=== PATIENT | male | born 1945 | race Caucasian/White ===

== ENCOUNTER → 2021-02-25 00:51 | Outpatient (CLI) | payer MEDICARE, SELFPAY ==
[2021-02-25 19:49] LABS: SARS-CoV-2 RNA PCR Negative
== END ==
PROVIDERS: Visit Provider Specialist
DX: Z01.812 Encounter for preprocedural laboratory examination (principal); Z20.822 Contact with and (suspected) exposure to COVID-19
CPT/HCPCS: C9803; U0003; U0005

== ENCOUNTER 2021-02-28 01:24 | Day surgery (SDC) | payer MEDICARE, SELFPAY ==
[2021-02-25 16:44] VITALS: BMI 32.4
[2021-02-28] VITALS (8 sets, daily range): BP systolic 124–148; BP diastolic 67–97; PULSE 57–98; RESP 14–18; TEMP 35.7; O2SAT 97–99; BMI 32.1
--- NOTE | 2021-02-28 08:30 | ECG_ITS ---
Measurements Intervals [place] Rate: 100 P: [place]: 0 QRS: -63 QRSD: 157 T: 25 QT: 392 QTc: 507 Interpretive Statements ATRIAL FIBRILLATION WITH RAPID VENTRICULAR RESPONSE RIGHT BUNDLE BRANCH BLOCK LEFT ANTERIOR FASCICULAR BLOCK BASELINE ARTIFACT- II, III, AVL, AVF ABNORMAL ECG Electronically Signed On 02-28-2021 8:59:02 CDT by Inocencio Concepcion D.O.
[2021-02-28 09:17] LABS: Anion Gap 5 mmol/L (8-16); Blood Urea Nitrogen 23 mg/dL (9-20); Calcium 9.1 mg/dL (8.4-10.2); Carbon Dioxide 29 mmol/L (22-30); Chloride 107 mmol/L (98-107); Estimated CRCL calculation 42 ml/min; Estimated Glomerular Filt Rate 46; Glucose 119 mg/dL (75-110); Magnesium 1.6 mg/dL (1.6-2.3); Potassium 4.4 mmol/L (3.4-5.0); Sodium 141 mmol/L (137-145)
--- NOTE | 2021-02-28 10:21 | P.SEDATION_ITS ---
Moderate Sedation Note-Pt Data Patient Data Diagnosis: Atrial fibrillation with symptomatic recurrence Present Complaint: Generalized fatigue Procedure to be performed/Plan: DC cardioversion Allergies Allergy/AdvReac Type Severity Reaction Status Date / Time amlodipine Allergy Swelling Verified 02/25/21 16:39 Home Medications Medication Instructions Recorded Confirmed Type amiodarone 400 mg PO DAILY 02/25/21 02/25/21 History famotidine 20 mg PO BID 02/25/21 02/25/21 History folic acid 1 mg PO DAILY 02/25/21 02/25/21 History hydrochlorothiazide 12.5 mg PO DAILY 02/25/21 02/25/21 History levothyroxine 50 mcg PO DAILY 02/25/21 02/25/21 History losartan 100 mg PO DAILY 02/25/21 02/25/21 History multivitamin [Multi-Vitamin] 1 tablet PO DAILY 02/25/21 02/25/21 History rivaroxaban [Xarelto] 20 mg PO DAILY 02/25/21 02/25/21 History sildenafil 50 mg PO DAILY PRN 02/25/21 02/25/21 History thiamine HCl (vitamin B1) 100 mg PO DAILY 02/25/21 02/25/21 History Current Medications: Active Medications Sodium Chloride (Normal Saline Iv) 1,000 mls @ 30 mls/hr IV CONT .Q24H PABLO Sedation/Anesthesia: No previous sedation/anesthesia problems (including family history). [facility] Social History Social History Smoking status: Never smoker Substance use: never Substance use type: does not use Living arrangements: alone Additional living arrangements comments: Son and sister both live few blocks away Gender identity (if verbalized by the patient): Male Spiritual care concerns: No Mod Sed Physical Exam Physical Exam Pre Procedural Exam: Normal: Neck, Throat, Airway, Lungs, Heart Size, Neuro Exam and Extremities and Variation: Appearance (Overweight white male in no apparent distress other), Heart Rate and Heart Rhythm (Irregularly irregular) Hours since solid foods: 12 Hours since liquid intake: 12 Internal Medicine - PN: Obj Da Vital Signs Vital Signs: Vital Signs - 24 hr 02/28/21 08:56 Temperature 35.7 C L Pulse Rate 89 Respiratory Rate 18 Blood Pressure 141/70 H Pulse Oximetry 97 Meds/Results Medications: Active Medications Generic Name Dose Route Start Last Admin Trade Name Freq PRN Reason Stop Dose Admin Sodium Chloride 1,000 mls @ 30 mls/hr 02/28/21 08:30 Normal Saline Iv IV CONT .Q24H PABLO Labs CBC & Chem 7: 02/28/21 08:54 Labs: Laboratory Results - last 24 hr 02/28/21 08:54 Sodium 141 Potassium 4.4 Chloride 107 Carbon Dioxide 29 Anion Gap 5 L BUN 23 H Creatinine 1.50 H Estim Creat Clear Calc 42 Estimated GFR 46 L Glucose 119 H Calcium 9.1 Magnesium 1.6 ASA Classification/Sedation ASA Classification/Sedation ASA Class: III Emergent: No Risks: Risks, benefits and alternatives explained and patient/family accepted plan for sedation. Patient re-evaluated immediately prior to sedation.
--- NOTE | 2021-02-28 10:30 | WPDCARDPROC ---
Cardiac Cath Procedure Note Date of procedure:: 02/28/21 Performing physician:: Magnus Delong MD Indication:: Recurrent atrial fibrillation Brief clinical history:: This is a 75-year-old patient with a history of previous atrial fibrillation which occurred in the setting of a pulmonary embolism. In that situation antiarrhythmic therapy was stopped in the past. He was seen in the office recently because of a symptomatic recurrence of the arrhythmia X felt to have occurred within the last 1-2 months. He has been anticoagulated and loaded with amiodarone and is now being admitted as an outpatient for attempt at restoring sinus rhythm electrically. Procedure Procedure performed:: DC cardioversion Sedation/Medication given:: Propofol and aliquots total dosage of 100 mg given Case start time 10:26 a.m. Case end time 10:29 a.m. Sedation provided by Dr. Delong Estimated blood loss:: No blood loss Procedure note:: Patient was placed in the supine position in the cardiac laboratory helper holding area. Defibrillator patches were placed in the AP position for synchronous cardioversion. He then was sedated with propofol. In aliquots a total dosage of 100 mg was given which provided good procedural sedation. He was counter shocked with 200 joules x1 attempt in a synchronized fashion restoring normal sinus rhythm. Findings:: As above Conclusion:: Successful uncomplicated DC cardioversion of atrial fibrillation to sinus rhythm using 200 joules x1 shock Magnus Delong MD [facility]
--- NOTE | 2021-02-28 10:33 | ECG_ITS ---
Measurements Intervals [place] Rate: 58 P: 61 [place]: 230 QRS: -49 QRSD: 166 T: -9 QT: 484 QTc: 476 Interpretive Statements SINUS BRADYCARDIA WITH FIRST DEGREE AV BLOCK ATRIAL PREMATURE COMPLEXES RIGHT BUNDLE BRANCH BLOCK LEFT ANTERIOR FASCICULAR BLOCK ABNORMAL ECG Electronically Signed On 02-28-2021 11:10:22 CDT by Inocencio Concepcion D.O.
== END 2021-02-28 11:40 | disposition home or self-care (01) ==
PROVIDERS: Visit Provider Specialist
PROC: 5A2204Z Restoration of Cardiac Rhythm, Single (ICD-10-PCS; principal; 2021-02-28 10:00)
DX: I48.0 Paroxysmal atrial fibrillation (principal); Z86.711 Personal history of pulmonary embolism; I45.2 Bifascicular block; I44.0 Atrioventricular block, first degree; I49.1 Atrial premature depolarization; E03.9 Hypothyroidism, unspecified; Z79.01 Long term (current) use of anticoagulants; R53.83 Other fatigue; R06.00 Dyspnea, unspecified
CPT/HCPCS: 36415; 80048; 83735; 92960; 93005; J2704; J7030

== ENCOUNTER → 2021-03-22 02:11 | Outpatient (CLI) | payer MEDICARE, SELFPAY ==
[2021-03-22 19:23] LABS: SARS-CoV-2 RNA PCR Negative
== END ==
PROVIDERS: Visit Provider Specialist
DX: Z01.812 Encounter for preprocedural laboratory examination (principal); Z20.822 Contact with and (suspected) exposure to COVID-19
CPT/HCPCS: C9803; U0003; U0005

== ENCOUNTER 2021-03-25 01:40 | Day surgery (SDC) | payer MEDICARE, SELFPAY ==
[2021-03-24 16:19] VITALS: BMI 32.5
[2021-03-25] VITALS (9 sets, daily range): BP systolic 107–152; BP diastolic 64–100; PULSE 57–93; RESP 14–20; O2SAT 94–100
--- NOTE | 2021-03-25 11:30 | ECG_ITS ---
Measurements Intervals [place] Rate: 83 P: [place]: 0 QRS: -58 QRSD: 160 T: 12 QT: 406 QTc: 478 Interpretive Statements ATRIAL FIBRILLATION RIGHT BUNDLE BRANCH BLOCK LEFT ANTERIOR FASCICULAR BLOCK ABNORMAL ECG Electronically Signed On 03-25-2021 11:47:30 CDT by Inocencio Concepcion D.O.
[2021-03-25 11:52] LABS: Hematocrit 37.2 % (42.0-52.0); Hemoglobin 12.3 g/dL (14.0-18.0); Mean Corpuscular HGB Conc 33.1 g/dl (32-36); Mean Corpuscular Volume 108.8 fl (80-100); Mean Platelet Volume 8.5 fl (7.4-10.4); Platelet Count Result 230 k/mm3 (150-375); Red Blood Count 3.42 M/mm3 (4.6-6.20); Red Cell Distribution Width 14.3 % (11.5-14.5); White Blood Count 4.6 K/mm3 (4.5-10.0)
[2021-03-25 12:02] LABS: Anion Gap 4 mmol/L (8-16); Blood Urea Nitrogen 19 mg/dL (9-20); Calcium 9.2 mg/dL (8.4-10.2); Carbon Dioxide 31 mmol/L (22-30); Chloride 105 mmol/L (98-107); Estimated CRCL calculation 45 ml/min; Estimated Glomerular Filt Rate 50; Glucose 96 mg/dL (75-110); INR 3.4; Potassium 4.8 mmol/L (3.4-5.0); Prothrombin Time 34.5 Seconds (11.1-14.7); Sodium 140 mmol/L (137-145)
--- NOTE | 2021-03-25 13:37 | WPDMODSED ---
Moderate Sedation Note-Pt Data Patient Data Diagnosis: Recurrent atrial fibrillation Present Complaint: Palpitations/dyspnea/fatigue Procedure to be performed/Plan: DC cardioversion Allergies Allergy/AdvReac Type Severity Reaction Status Date / Time amlodipine Allergy Swelling Verified 02/25/21 16:39 Home Medications Medication Instructions Recorded Confirmed Type famotidine 20 mg PO BID 02/25/21 02/25/21 History folic acid 1 mg PO DAILY 02/25/21 02/25/21 History hydrochlorothiazide 12.5 mg PO DAILY 02/25/21 02/25/21 History levothyroxine 50 mcg PO DAILY 02/25/21 02/25/21 History losartan 100 mg PO DAILY 02/25/21 02/25/21 History multivitamin [Multi-Vitamin] 1 tablet PO DAILY 02/25/21 02/25/21 History rivaroxaban [Xarelto] 20 mg PO DAILY 02/25/21 02/25/21 History sildenafil 50 mg PO DAILY PRN 02/25/21 02/25/21 History thiamine HCl (vitamin B1) 100 mg PO DAILY 02/25/21 02/25/21 History amiodarone 200 mg PO DAILY 30 Days #30 tablet 02/28/21 Rx Sedation/Anesthesia: No previous sedation/anesthesia problems (including family history). [facility] Social History Social History Smoking status: Never smoker Second hand tobacco smoke exposure: No Alcohol intake: current Alcohol use details: 2 bottles per day Substance use: current Substance use type: marijuana Other substance usage details: on occasion Living arrangements: alone Additional living arrangements comments: Son and sister both live few blocks away Gender identity (if verbalized by the patient): Male Sexual Orientation (if Verbalized by the Patient): Straight or Heterosexual Spiritual care concerns: No Mod Sed Physical Exam Physical Exam Pre Procedural Exam: Normal: Neck, Throat, Airway, Lungs, Heart Size, Neuro Exam and Extremities and Variation: Appearance (Obese white male no distress), Heart Rate and Heart Rhythm (Irregularly irregular) Hours since solid foods: 12 Hours since liquid intake: 12 Internal Medicine - PN: Obj Da Labs CBC & Chem 7: 03/25/21 11:38 03/25/21 11:38 Labs: Laboratory Results - last 24 hr 03/25/21 03/25/21 03/25/21 11:38 11:38 11:38 WBC 4.6 RBC 3.42 L Hgb 12.3 L Hct 37.2 L MCV 108.8 H MCH 36.0 H MCHC 33.1 RDW 14.3 Plt Count 230 MPV 8.5 PT 34.5 H INR 3.4 Sodium 140 Potassium 4.8 Chloride 105 Carbon Dioxide 31 H Anion Gap 4 L BUN 19 Creatinine 1.40 H Estim Creat Clear Calc 45 Estimated GFR 50 L Glucose 96 Calcium 9.2 ASA Classification/Sedation ASA Classification/Sedation ASA Class: II Emergent: No Risks: Risks, benefits and alternatives explained and patient/family accepted plan for sedation. Patient re-evaluated immediately prior to sedation.
--- NOTE | 2021-03-25 13:48 | P.PCNCC_ITS ---
Cardiac Cath Procedure Note Date of procedure:: 03/25/21 Performing physician:: Magnus Delong MD Indication:: Recurrent atrial fibrillation Brief clinical history:: This is a 75-year-old patient with a history of recurrent atrial fibrillation. He underwent a cardioversion last month and has had early recurrence. After being seen in the office I recommended electrophysiology consultation. Per the patient's request we are trying another cardioversion. He is being maintained on amiodarone and is systemically anticoagulated with Xarelto. Procedure Procedure performed:: DC cardioversion Sedation/Medication given:: Propofol total dosage of 100 mg given Case start time 1:46 p.m. Case end time 1:48 p.m. Sedation provided by Dr. Delong Estimated blood loss:: No blood loss Procedure note:: Patient was in the postabsorptive state the defibrillator patches were placed in the AP position. He was sedated with propofol and then counter shocked with 200 joules in a synchronized fashion restoring sinus rhythm. Findings:: As above Conclusion:: Successful uncomplicated DC cardioversion of atrial fibrillation to sinus rhythm using 200 joules x1 shock. Magnus Delong MD [facility]
--- NOTE | 2021-03-25 13:51 | ECG_ITS ---
Measurements Intervals [place] Rate: 57 P: 59 [place]: 218 QRS: -52 QRSD: 162 T: -3 QT: 470 QTc: 458 Interpretive Statements SINUS BRADYCARDIA WITH FIRST DEGREE AV BLOCK RIGHT BUNDLE BRANCH BLOCK LEFT ANTERIOR FASCICULAR BLOCK BASELINE ARTIFACT- AVR, AVL, AVF, V6 ABNORMAL ECG Electronically Signed On 03-25-2021 16:22:25 CDT by Inocencio Concepcion D.O.
== END 2021-03-25 15:27 | disposition home or self-care (01) ==
PROVIDERS: Visit Provider Specialist
PROC: 5A2204Z Restoration of Cardiac Rhythm, Single (ICD-10-PCS; CPT 92960; principal; 2021-03-25 13:00)
DX: I48.0 Paroxysmal atrial fibrillation (principal); G47.33 Obstructive sleep apnea (adult) (pediatric); I35.1 Nonrheumatic aortic (valve) insufficiency; Z79.01 Long term (current) use of anticoagulants; Z86.711 Personal history of pulmonary embolism; F12.90 Cannabis use, unspecified, uncomplicated
CPT/HCPCS: 92960; 36415; 80048; 85027; 85610; 93005; J2704; J7040

== ENCOUNTER 2023-02-11 03:24 | Emergency (ER) | payer MEDICARE, SELFPAY ==
[2023-02-11] VITALS (16 sets, daily range): BP systolic 117–162; BP diastolic 66–84; PULSE 62–73; RESP 13–24; TEMP 36.9; O2SAT 91–100
--- NOTE | ~2023-02-11 | CT_ITS ---
EXAMINATION: CT abdomen pelvis wo con DATE: 02/11/2023 04:01 INDICATION: Left flank pain TECHNIQUE: Computed tomography (CT) of the abdomen and pelvis was performed without intravenous contr ast. The dose-length product (DLP) was 1138.59 mGy-cm. Automated exposure control and iterative recon struction technique were employed. COMPARISON: None FINDINGS: Minimal dependent atelectasis is present in the lung bases. Cardiomegaly is noted. The gall bladder is surgically absent. The liver, spleen, pancreas, and adrenal glands are normal. The kidneys are unremarkable. An IVC filter is noted. No pathologically enlarged abdominal or pelvic lymph nodes are identified. No free intraperitoneal gas or evidence of bowel obstruction. There is moderate lumb ar spondylosis. The appendix is normal. IMPRESSION: 1. No CT correlate for the patient's symptoms. Reviewed, dictated and finalized at location A.
--- NOTE | 2023-02-11 03:30 | ECG_ITS ---
Measurements Intervals [place] Rate: 64 P: -65 [place]: 230 QRS: -65 QRSD: 167 T: 2 QT: 461 QTc: 476 Interpretive Statements SINUS RHYTHM WITH FIRST DEGREE AV BLOCK RIGHT BUNDLE BRANCH BLOCK LEFT ANTERIOR FASCICULAR BLOCK BASELINE ARTIFACT- I, III, AVR, AVL, V1-V2 ABNORMAL ECG COMPARED TO ECG 03/25/2021 13:51:48 SINUS RHYTHM NOW PRESENT Electronically Signed On 02-11-2023 7:46:36 CDT by Inocencio Concepcion D.O.
--- NOTE | 2023-02-11 03:52 | PC.NURSE ---
Patient in CT at this time.
[2023-02-11] MEDS: MORPHINE SULFATE (*CRX) 4 MG/ML INJ IV PUSH (04:01)
[2023-02-11 04:17] LABS: Basophils Percent Auto 0.7 % (0.2-1.2); Hemoglobin 10.4 g/dL (14.0-18.0); Immature Granulocyte Absolute 0.03 K/mm3 (0.00-0.031); Immature Granulocyte Percent A 0.7 % (0-0.5); Lymphocytes Absolute Auto 0.51 K/mm3 (0.9-3.2); Lymphocytes Percent Auto 11.1 % (18.3-44.2); Mean Corpuscular HGB Conc 32.5 g/dl (32-36); Mean Corpuscular Hemoglobin 35.5 pg (26-34); Mean Corpuscular Volume 109.2 fl (80-100); Mean Platelet Volume 8.2 fl (7.4-10.4); Monocytes Absolute Auto 0.6 K/mm3 (0.1-0.6); Monocytes Percent Auto 12.2 % (2.6-8.5); Neutrophils Absolute Auto 3.5 K/mm3 (1.3-6.7); Neutrophils Percent Auto 75.3 % (45.5-73.1); Platelet Count Result 150 k/mm3 (150-375); Red Blood Count 2.93 M/mm3 (4.6-6.20); Red Cell Distribution Width 15.6 % (11.5-14.5); White Blood Count 4.6 K/mm3 (4.5-10.0)
--- NOTE | 2023-02-11 04:24 | ED.GENADULT ---
HPI - General Adult General Chief complaint: Back Pain/Injury Stated complaint: BACK/LEFT FLANK PAIN Time Seen by Provider: 02/11/23 03:31 History of Present Illness HPI narrative: Patient 77-year-old gentleman who presents the emergency department with chief complaint of left flank pain patient reports he did some moving around of stone yesterday and started having some aching in his flank. The patient reports is not improved by anything reports that its actually gotten worse and its worse with movement at this point. Patient denies dysuria denies blood in his urine patient denies vomiting Related Data Home Medications Medication Instructions Recorded Confirmed famotidine 20 mg tablet 20 mg PO BID 02/25/21 02/25/21 folic acid 1 mg PO DAILY 02/25/21 02/25/21 hydrochlorothiazide 25 mg tablet 12.5 mg PO DAILY 02/25/21 02/25/21 levothyroxine 50 mcg capsule 50 mcg PO DAILY 02/25/21 02/25/21 losartan 100 mg tablet 100 mg PO DAILY 02/25/21 02/25/21 multivitamin 1 tablet PO DAILY 02/25/21 02/25/21 rivaroxaban 20 mg tablet (Xarelto) 20 mg PO DAILY 02/25/21 02/25/21 sildenafil 50 mg tablet 50 mg PO DAILY PRN Erectile 02/25/21 02/25/21 Dysfunction thiamine HCl (vitamin B1) 100 mg 100 mg PO DAILY 02/25/21 02/25/21 tablet Allergies Allergy/AdvReac Type Severity Reaction Status Date / Time amlodipine Allergy Swelling Verified 02/11/23 03:33 [facility] Social History Social History Smoking status: Never smoker Second hand tobacco smoke exposure: No Alcohol intake: current Alcohol use details: 2 bottles per day Substance use: current Substance use type: marijuana Other substance usage details: on occasion Living arrangements: alone Additional living arrangements comments: Son and sister both live few blocks away Gender identity (if verbalized by the patient): Male Sexual Orientation (if Verbalized by the Patient): Straight or Heterosexual Spiritual care concerns: No Course Vital Signs Vital signs: Vital Signs Temperature 36.9 C 02/11/23 03:23 Pulse Rate 72 02/11/23 03:23 Respiratory Rate 14 02/11/23 03:23 Blood Pressure 162/72 H 02/11/23 03:23 Pulse Oximetry 99 02/11/23 03:23 Oxygen Delivery Room Air 02/11/23 03:23 Temperature 36.9 C 02/11/23 03:23 Pulse Rate 66 02/11/23 04:45 Respiratory Rate 22 H 02/11/23 04:45 Blood Pressure 162/72 H 02/11/23 03:23 Pulse Oximetry 92 02/11/23 04:45 Oxygen Delivery Room Air 02/11/23 03:23 Medical Decision Making MDM Narrative Medical decision making narrative: Differential diagnosis includes kidney stone, musculoskeletal back pain, intra-abdominal infection, CT scan showed no evidence of acute intra-abdominal pathology noted kidney stone Laboratory studies were obtained which showed a normal urinalysis CBC was normal electrolytes were within normal limits Vital Signs Vital Signs: Vital Signs Temperature 36.9 C 02/11/23 03:23 Pulse Rate 72 02/11/23 03:23 Respiratory Rate 14 02/11/23 03:23 Blood Pressure 162/72 H 02/11/23 03:23 Pulse Oximetry 99 02/11/23 03:23 Oxygen Delivery Room Air 02/11/23 03:23 Temperature 36.9 C 02/11/23 03:23 Pulse Rate 66 02/11/23 04:45 Respiratory Rate 22 H 02/11/23 04:45 Blood Pressure 162/72 H 02/11/23 03:23 Pulse Oximetry 92 02/11/23 04:45 Oxygen Delivery Room Air 02/11/23 03:23 Lab Data 02/11/23 04:09 Labs: Lab Results 02/11/23 02/11/23 02/11/23 Range/Units 04:09 04:09 05:57 WBC 4.6 (4.5-10.0) K/mm3 RBC 2.93 L (4.6-6.20) M/mm3 Hgb 10.4 L (14.0-18.0) g/dL Hct 32.0 L (42.0-52.0) % MCV 109.2 H (80-100) fl MCH 35.5 H (26-34) pg MCHC 32.5 (32-36) g/dl RDW 15.6 H (11.5-14.5) % Plt Count 150 (150-375) k/mm3 MPV 8.2 (7.4-10.4) fl Immature Gran % (Auto) 0.7 H (0-0.5) % Neut % (Auto) 75.3 H (45.5-73.1) % Lymph % (Auto) 11.1 L (18.3-44.2) % [place] % (Auto)
[2023-02-11 04:30] LABS: Alanine Aminotransferase 25 U/L (6-50); Albumin Level 3.8 g/dL (3.5-5.1); Alkaline Phosphatase 93 U/L (38-126); Anion Gap 8 mmol/L (8-16); Aspartate Amino Transferase 47 U/L (17-59); Bilirubin,Total 0.7 mg/dL (0.2-1.3); Blood Urea Nitrogen 16 mg/dL (9-20); Calcium 8.7 mg/dL (8.4-10.2); Carbon Dioxide 23 mmol/L (22-30); Chloride 107 mmol/L (98-107); Estimated Glomerular Filt Rate 59; Glucose 87 mg/dL (65-110); Lipase 64 U/L (23-300); Potassium 4.5 mmol/L (3.4-5.0); Sodium 138 mmol/L (137-145)
[2023-02-11 06:06] LABS: Appearance Urine Clear (Clear); Bacteria Urine None Seen /hpf; Bilirubin Urine Negative (Negative); Blood Urine 1+ (Negative); Color Urine Yellow (Yellow); Glucose Urine UA Negative (Negative); Ketones Urine 1+ mg/dL (Negative); Leukocyte Esterase Ur Negative LEU/UL (Negative); Nitrate Urine Negative (Negative); Non Pathogenic Casts 0-2; Protein Urine Negative (Negative); RBC Urine 0-2 /hpf (0-2); Specific Grav Ur 1.018 (1.001-1.035); Squamous Epithelial Cell Urine None seen /hpf (Few); WBC Urine 0-5 /hpf
[2023-02-11 06:15] LABS: Add Urine Microscopic? YES
== END 2023-02-11 06:51 | disposition home or self-care (01) ==
PROVIDERS: Emergency Provider Emergency Medicine
DX: R10.9 Unspecified abdominal pain (principal); Z79.01 Long term (current) use of anticoagulants; I44.0 Atrioventricular block, first degree; I45.2 Bifascicular block
CPT/HCPCS: 36415; 74176; 80053; 81001; 83690; 85025; 93005; 96374; 99284; J2270

== ENCOUNTER 2023-02-16 11:34 | Emergency (ER) | payer MEDICARE, SELFPAY ==
[2023-02-16] VITALS (19 sets, daily range): BP systolic 142–158; BP diastolic 66–110; PULSE 54–62; RESP 11–24; TEMP 37.1; O2SAT 95–100
--- NOTE | ~2023-02-16 | XR_ITS ---
EXAMINATION: XR lumbar spine 2-3V DATE: 02/16/2023 13:05 INDICATION: Left-sided sciatica. TECHNIQUE: 3 views of lumbar spine were obtained. COMPARISON: CT abdomen and pelvis 02/11/2023 FINDINGS: There is 5 degrees dextrocurvature of lumbar spine. There is 3 mm anterolisthesis of L4 on L5. L5 is a transitional segment. Vertebral body heights are normal. Intervertebral disc heights are normal. There are endplate osteophytes at all levels. There is multilevel facet joint osteoarthritis, severe in lower lumbar spine. The prior CT demonstrates moderate bilateral neural foraminal stenosis at L4-L5. There is a filter in the inferior vena cava. IMPRESSION: 1. Moderate lower lumbar spondylosis. Reviewed, dictated and finalized at location A.
[2023-02-16] MEDS: oxyCODONE/ACETAMINOPHEN (*CRX) 5-325 MG TABLET 1 TABLET PO (12:40)
--- NOTE | 2023-02-16 14:09 | ED.GENADULT ---
HPI - General Adult General Chief complaint: Back Pain/Injury Stated complaint: back pain Time Seen by Provider: 02/16/23 11:42 History of Present Illness HPI narrative: Patient is a 77-year-old male who presents ER with left-sided low back pain and leg pain. Not last 3 days since he ran out of Percocet from his previous visit for the same pain. No numbness or tingling to the part parts. No difficulty with urination or defecation. No numbness in the leg. Has sharp shooting pain that will radiate from the hip down towards his knee. Denies any falls. He has been using a walker at home to get around though he typically does not have to. Related Data Home Medications Medication Instructions Recorded Confirmed famotidine 20 mg tablet 20 mg PO BID 02/25/21 02/25/21 folic acid 1 mg PO DAILY 02/25/21 02/25/21 hydrochlorothiazide 25 mg tablet 12.5 mg PO DAILY 02/25/21 02/25/21 levothyroxine 50 mcg capsule 50 mcg PO DAILY 02/25/21 02/25/21 losartan 100 mg tablet 100 mg PO DAILY 02/25/21 02/25/21 multivitamin 1 tablet PO DAILY 02/25/21 02/25/21 rivaroxaban 20 mg tablet (Xarelto) 20 mg PO DAILY 02/25/21 02/25/21 sildenafil 50 mg tablet 50 mg PO DAILY PRN Erectile 02/25/21 02/25/21 Dysfunction thiamine HCl (vitamin B1) 100 mg 100 mg PO DAILY 02/25/21 02/25/21 tablet Allergies Allergy/AdvReac Type Severity Reaction Status Date / Time amlodipine Allergy Swelling Verified 02/16/23 12:41 Review of Systems Review of Systems: All systems reviewed & are unremarkable except as noted in HPI and below Constitutional: Constitutional: Denies chills and Denies fever(s) Genitourinary: Genitourinary: Denies oliguria, Denies dysuria, Denies urinary frequency and Denies urinary incontinence Musculoskeletal: Musculoskeletal: Reports back pain, Denies arthralgias, Denies joint swelling and Denies muscle cramps Neurologic: Denies focal weakness and Denies numbness [facility] Past Medical History Medical History (Updated 02/16/23 @ 18:03 by Dylon Pinzon MD) Atrial fibrillation Depression Hypertension Pulmonary embolism Surgical History Surgical History (Updated 02/16/23 @ 18:03 by Dylon Pinzon MD) History of cholecystectomy History of total knee arthroplasty Social History Social History Smoking status: Never smoker Second hand tobacco smoke exposure: No Alcohol intake: current Alcohol use details: 2 bottles per day Substance use: current Substance use type: marijuana Other substance usage details: on occasion Living arrangements: alone Additional living arrangements comments: Son and sister both live few blocks away Gender identity (if verbalized by the patient): Male Sexual Orientation (if Verbalized by the Patient): Straight or Heterosexual Spiritual care concerns: No Exam Narrative: GENERAL: Well-appearing, well-nourished, and in no acute distress. HEAD: Normocephalic, atraumatic. CHEST: Clear to auscultation. No respiratory distress. HEART: Regular rate and rhythm. Normal peripheral pulses. ABDOMEN: Soft, nontender, nondistended. Back: No reproducible midline or paraspinal muscular tenderness to the T/L-spine. Very minimal discomfort left lateral buttock near the SI region. EXTREMITIES: Normal range of motion. No edema. Positive straight leg raise left lower extremity. SKIN: Warm, dry, no rash. NEURO: No focal deficits. Alert and oriented x3. PSYCH: Normal mood and affect. Course Course Emergency Course: Imaging today unremarkable. I reviewed previous CT imaging of the abdomen pelvis and back. No fractures. Patient seems to have sciatica is felt to be related to his physical activity at work. Encouraged rest and oral Tylenol. We will add on Flexeril. He has follow-up scheduled with his PCP on 02/21/2023. Patient reports has walker at home that he has been ambulating with that he does not typically have to use. He has been able to get up and ambulate to the bathroom today.
--- NOTE | 2023-02-16 14:50 | PC.NURSE ---
Family verbalized frustration at care for pt after d/c and voice that they thought pt should be admitted because he could not walk. Pt had reported to MD that he was able to walk to bathroom this am [employer]. Pt and family stated that they will not be able take pt home without ambulance. Pt ad family educated on qualifications of need of ambulance transfers and that pt does not qualify if he can sit in a wheelchair and can stand up by self. Pt assisted into wheelchair at this time. Pt was able to bear-weight by self and stand and transfer self to wheelchair by self. Pt was able to maintain balance and assist with dressing self with nurse as stand-by assist. Son verbalize the pt was moving better than [employer] when they called 911. Pt assisted to car after d/c with wheelchair and into vehicle. Son and nurse were stand-by assist into vehicle but pt transferred independently without issues. Family and PT notified of lift-assist services by fire department and ambulance services that can meet pt and family at home with assistance back into home.
== END 2023-02-16 14:57 | disposition home or self-care (01) ==
PROVIDERS: Emergency Provider Emergency Medicine
DX: M54.42 Lumbago with sciatica, left side (principal); I48.91 Unspecified atrial fibrillation; F32.A Depression, unspecified; I10 Essential (primary) hypertension; Z86.711 Personal history of pulmonary embolism
CPT/HCPCS: 72100; 99283; A9270

== ENCOUNTER 2023-02-21 09:03 | Outpatient (CLI) | payer MEDICARE, SELFPAY ==
[2023-02-21 18:56] LABS: Iron 32 ug/dL (49-181)
[2023-02-21 18:58] LABS: Immature Reticulocyte Fraction 23.5 % (3.0-15.9); Reticulocyte Hemoglobin Conten 34.3 pg (28.2-35.7); Reticulocyte Percent 2.26 % (0.7-4.3); Reticulocytes Absolute 0.06 B/L (32.2-175.7)
[2023-02-21 19:07] LABS: Percent Iron Saturation 17 % (20-50)
[2023-02-21 19:57] LABS: Folic Acid > 20.0 ng/mL (2.76->20)
== END 2023-02-21 09:04 | disposition home or self-care (01) ==
LOC: ANHGOSHLAB 09:04
PROVIDERS: Visit Provider Nurse Practitioner
DX: D64.9 Anemia, unspecified (principal)
CPT/HCPCS: 36415; 82607; 82728; 82746; 83540; 83550; 84443; 85046

== ENCOUNTER 2023-06-05 10:08 | Outpatient (CLI) | payer MEDICARE, SELFPAY ==
[2023-06-05 11:08] LABS: Hematocrit 28.8 % (42.0-52.0); Hemoglobin 9.2 g/dL (14.0-18.0); Mean Corpuscular HGB Conc 31.9 g/dl (32-36); Mean Corpuscular Hemoglobin 36.4 pg (26-34); Mean Corpuscular Volume 113.8 fl (80-100); Platelet Count Result 214 k/mm3 (150-375); Red Blood Count 2.53 M/mm3 (4.6-6.20); Red Cell Distribution Width 13.9 % (11.5-14.5); White Blood Count 3.3 K/mm3 (4.5-10.0)
[2023-06-05 13:43] LABS: Folic Acid > 20.0 ng/mL (2.76->20)
[2023-06-05 22:11] LABS: Iron 62 ug/dL (49-181)
[2023-06-05 22:20] LABS: Percent Iron Saturation 22 % (20-50)
== END 2023-06-05 10:09 | disposition home or self-care (01) ==
PROVIDERS: PCP Internal Medicine; Visit Provider Nurse Practitioner
DX: D53.9 Nutritional anemia, unspecified (principal); I48.0 Paroxysmal atrial fibrillation
CPT/HCPCS: 36415; 82607; 82728; 82746; 83540; 83550; 85027

== ENCOUNTER → 2023-06-28 09:35 | Outpatient (CLI) | payer MEDICARE, SELFPAY ==
--- NOTE | ~2023-06-28 | US_ITS ---
EXAMINATION: US soft tissue head and neck DATE: 06/28/2023 09:52 INDICATION: Left scalp lump. TECHNIQUE: Multiple grayscale and Doppler ultrasound images of the head and neck were obtained. COMPARISON: None FINDINGS: There is a 2.1 x 2.2 x 1.1 cm hypoechoic mass with hyperechoic foci in left scalp. No inter nal vascular flow visible on color Doppler. IMPRESSION: 1. 2.2 cm left scalp mass. This finding is most likely a benign mass such as a sebaceous cyst, but ma lignancy is not excluded by imaging. Reviewed, dictated and finalized at location A. IMPRESSION: 1. 2.2 cm left scalp mass. This finding is most likely a benign mass such as a sebaceous cyst, but malignancy is not excluded by imaging.
== END ==
PROVIDERS: PCP Internal Medicine; Visit Provider Nurse Practitioner
DX: R22.0 Localized swelling, mass and lump, head (principal)
CPT/HCPCS: 76536

== ENCOUNTER 2023-07-02 11:00 | Outpatient (CLI) | payer MEDICARE, SELFPAY ==
[2023-07-02 11:33] LABS: Basophils Percent Auto 1.3 % (0.2-1.2); Eosinophils Absolute Auto 0.1 K/mm3 (0-0.3); Hematocrit 35.5 % (42.0-52.0); Hemoglobin 11.8 g/dL (14.0-18.0); Lymphocytes Absolute Auto 0.79 K/mm3 (0.9-3.2); Lymphocytes Percent Auto 26.2 % (18.3-44.2); Mean Corpuscular HGB Conc 33.2 g/dl (32-36); Mean Corpuscular Hemoglobin 35.2 pg (26-34); Mean Platelet Volume 8.4 fl (7.4-10.4); Monocytes Absolute Auto 0.4 K/mm3 (0.1-0.6); Monocytes Percent Auto 11.6 % (2.6-8.5); Neutrophils Absolute Auto 1.8 K/mm3 (1.3-6.7); Neutrophils Percent Auto 57.9 % (45.5-73.1); Platelet Count Result 182 k/mm3 (150-375); Red Blood Count 3.35 M/mm3 (4.6-6.20); Red Cell Distribution Width 12.6 % (11.5-14.5)
[2023-07-02 12:25] LABS: Alanine Aminotransferase 16 U/L (6-50); Albumin Level 3.8 g/dL (3.5-5.1); Alkaline Phosphatase 74 U/L (38-126); Anion Gap 5 mmol/L (8-16); Aspartate Amino Transferase 28 U/L (17-59); Bilirubin,Total 0.3 mg/dL (0.2-1.3); Blood Urea Nitrogen 13 mg/dL (9-20); Calcium 9.1 mg/dL (8.4-10.2); Carbon Dioxide 29 mmol/L (22-30); Chloride 102 mmol/L (98-107); Estimated Glomerular Filt Rate 54; Glucose 100 mg/dL (65-110); Lactate Dehydrogenase 146 U/L (120-246); Potassium 4.1 mmol/L (3.4-5.0); Sodium 136 mmol/L (137-145)
[2023-07-02 12:59] LABS: Iron 35 ug/dL (49-181)
[2023-07-02 13:05] LABS: Percent Iron Saturation 11 % (20-50)
[2023-07-02 13:33] LABS: Folic Acid > 20.0 ng/mL (2.76->20)
[2023-07-05 10:23] LABS: Albumin 3.6 g/dL (3.8-4.8); Alpha 1 Globulin 0.3 g/dL (0.2-0.3); Alpha 2 Globulin 0.7 g/dL (0.5-0.9); Beta 1 Globulin 0.5 g/dL (0.4-0.6); Gamma Globulin 1.2 g/dL (0.8-1.7); Protein, Total 6.8 g/dL (6.1-8.1)
[2023-07-05 23:58] LABS: Methylmalonic Acid 88 nmol/L (87-318)
[2023-07-10 09:21] LABS: Soluble Transferrin Receptor 1.37
== END 2023-07-02 11:01 | disposition home or self-care (01) ==
LOC: ANHLAB 11:04
PROVIDERS: PCP Internal Medicine; Visit Provider Internal Medicine Hematology & Oncology
DX: D64.9 Anemia, unspecified (principal)
CPT/HCPCS: 36415; 80053; 82607; 82728; 82746; 83540; 83550; 83615; 83921; 84155; 84165; 84238; 85025

== ENCOUNTER 2023-07-31 00:41 | Day surgery (SDC) | payer MEDICARE, SELFPAY ==
[2023-07-16 14:01] VITALS: BMI 30.7
--- NOTE | 2023-07-30 09:36 | WPDANESEPPF ---
Anes - Initial Pre Proc Eval Procedure: Operation Date: 07/31/23 10:30 Proposed Procedures p Esophagogastroduodenoscopy & Colonoscopy - Sergio Portillo MD Date/Time: 07/30/23 09:36 Surgeon: Sergio Portillo MD Pre Op Diagnosis: nutritional anemia, family hx colon ca Patient Data Age: 77 Gender: M Height: 1.7 m Weight: 89.1 kg Allergies Allergy/AdvReac Type Severity Reaction Status Date / Time amlodipine Allergy Intermediate Swelling Verified 07/31/23 09:19 Home Medications Medication Instructions Recorded Confirmed Type famotidine 20 mg tablet 20 mg PO BID 02/25/21 07/31/23 History folic acid 1 mg PO DAILY 02/25/21 07/31/23 History losartan 100 mg tablet 100 mg PO DAILY 02/25/21 07/31/23 History multivitamin 1 tablet PO DAILY 02/25/21 07/31/23 History rivaroxaban 20 mg tablet (Xarelto) 20 mg PO DAILY 02/25/21 07/31/23 History sildenafil 50 mg tablet 50 mg PO DAILY PRN Erectile 02/25/21 07/31/23 History Dysfunction thiamine HCl (vitamin B1) 100 mg 100 mg PO DAILY 02/25/21 07/31/23 History tablet amiodarone 200 mg tablet 200 mg PO DAILY 30 days #30 tabs 02/28/21 07/31/23 Rx hydrochlorothiazide 25 mg tablet 12.5 mg PO DAILY 90 days #45 tabs 05/23/23 07/31/23 Rx Patient hx anesthesia problems: none Family hx anesthesia problems: none Results Review: All pre-operative results and documents have been reviewed as part of the pre-operative evaluation. [facility] Past Medical History Medical History (Updated 07/30/23 @ 09:37 by Gigi Youssef DO) Atrial fibrillation Chronic alcohol abuse Depression DVT (deep venous thrombosis) Family hx of colon cancer GERD (gastroesophageal reflux disease) Hypertension Macrocytic anemia CHEO (obstructive sleep apnea) Pulmonary embolism Surgical History Surgical History (System 07/04/23 @ 11:44 by Ana Page) History of cholecystectomy History of total knee arthroplasty Family History Family History Mother Cancer Social History Social History (System 07/04/23 @ 11:44 by Ana Smith Smoking status: Never smoker Second hand tobacco smoke exposure: No Alcohol intake: current Alcohol use details: 2-3 bottles of wine/week Substance use: never Substance use type: does not use Other substance usage details: on occasion Lack of Transportation: No Lack of Food: Never True Current Housing: I Have Housing Concerned About Future Housing: No Difficulty Paying Gas/Electric Bills: No Difficulty Paying for Meds: No Currently Unemployed: No Education: High School Diploma/GED Difficulty w/ Childcare or Family Care: No Living arrangements: alone Additional living arrangements comments: Son and sister both live few blocks away Gender identity (if verbalized by the patient): Male Sexual Orientation (if Verbalized by the Patient): Straight or Heterosexual Spiritual care concerns: No Anes - Eval Final PreProcedure Day of Procedure 07/30/23 09:36 Patient weight: obese Heart: regular rate and rhythm Lungs: clear to auscultation Airway: Mallampati scale class II and special considerations poor dentition Neurological: alert and oriented Last oral intake: >/= 8 hours ASA classification: III Emergent: no Anesthetic plan: proceed Anesthesia type and monitoring: general GIVS and standard monitoring Results Review: All pre-operative results and documents have been reviewed as part of the pre-operative evaluation. Informed Consent: The patient's anesthetic plan and its attendant risks and benefits were discussed with the patient/family/POA. Questions were solicited and answers provided to the satisfaction of the patient/family/POA.
[2023-07-31 09:10] VITALS: BP 150/67; PULSE 60; RESP 18; TEMP 35.9; O2SAT 99; BMI 30.2
[2023-07-31] MEDS: LACTATED RINGERS 1,000 ML 150 ML IV CONT (09:32)
--- NOTE | 2023-07-31 10:07 | PM.HPGS ---
History of Present Illness History of Present Illness Consent: Risks, benefits, and alternatives have been discussed and questions answered. Patient agrees to proceed with procedure. Chief complaint: anemia, family hx colon ca Narrative: Murphy Contreras is a 77 year old male Presents for both colonoscopy and EGD. Patient found to have macrocytic anemia. GI endoscopy to be performed to exclude GI blood loss. Patient denies any obvious blood in his stools. Patient has a history of atrial fibrillation for which she is on Xarelto. He occasionally will get bleeding from gums when he brushes his teeth. Patient also has a family history of colon cancer in his mother. Patient reports that his weight appetite and bowel movements are otherwise normal. He denies abdominal pain. He has no difficulty eating. He denies heartburn. Patient does have significant alcohol intake. 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 Review of Systems Review of Systems: Review of systems noncontributory. [facility] Past Medical History Medical History (Updated 07/30/23 @ 09:37 by Gigi Youssef DO) Atrial fibrillation Chronic alcohol abuse Depression DVT (deep venous thrombosis) Family hx of colon cancer GERD (gastroesophageal reflux disease) Hypertension Macrocytic anemia CHEO (obstructive sleep apnea) Pulmonary embolism Surgical History Surgical History (System 07/04/23 @ 11:44 by Ana Page) History of cholecystectomy History of total knee arthroplasty Family History Family History Mother Cancer Social History Social History (System 07/04/23 @ 11:44 by Ana Page) Smoking status: Never smoker Second hand tobacco smoke exposure: No Alcohol intake: current Alcohol use details: 2-3 bottles of wine/week Substance use: never Substance use type: does not use Other substance usage details: on occasion Lack of Transportation: No Lack of Food: Never True Current Housing: I Have Housing Concerned About Future Housing: No Difficulty Paying Gas/Electric Bills: No Difficulty Paying for Meds: No Currently Unemployed: No Education: High School Diploma/GED Difficulty w/ Childcare or Family Care: No Living arrangements: alone Additional living arrangements comments: Son and sister both live few blocks away Gender identity (if verbalized by the patient): Male Sexual Orientation (if Verbalized by the Patient): Straight or Heterosexual Spiritual care concerns: No Meds Home Medications and Allergies Home Medications Medication Instructions Recorded Confirmed Type famotidine 20 mg tablet 20 mg PO BID 02/25/21 07/31/23 History folic acid 1 mg PO DAILY 02/25/21 07/31/23 History losartan 100 mg tablet 100 mg PO DAILY 02/25/21 07/31/23 History multivitamin 1 tablet PO DAILY 02/25/21 07/31/23 History rivaroxaban 20 mg tablet (Xarelto) 20 mg PO DAILY 02/25/21 07/31/23 History sildenafil 50 mg tablet 50 mg PO DAILY PRN Erectile 02/25/21 07/31/23 History Dysfunction thiamine HCl (vitamin B1) 100 mg 100 mg PO DAILY 02/25/21 07/31/23 History tablet amiodarone 200 mg tablet 200 mg PO DAILY 30 days #30 tabs 02/28/21 07/31/23 Rx hydrochlorothiazide 25 mg tablet 12.5 mg PO DAILY 90 days #45 tabs 05/23/23 07/31/23 Rx Allergies Allergy/AdvReac Type Severity Reaction Status Date / Time amlodipine Allergy Intermediate Swelling Verified 07/31/23 09:19 Vital Signs Vital Signs - 24 hr 07/31/23 09:10 Temperature 96.7 F L Pulse Rate 60 Respiratory Rate 18 Blood Pressure 150/67 H Pulse Oximetry 99 Oxygen Delivery Room Air Exam Narrative: Physical exam reveals patient to be alert. Vital signs stable. HEENT exam is unremarkable. Patient is anicteric. Lungs are clear to auscultation and percussion. Heart is without murmur or extra sounds. Abdomen bowel sounds are present soft nontender with no organomeg
--- NOTE | 2023-07-31 11:28 | SUR.OPER ---
EGD START 1057, END 1112 COLONOSCOPY START 1118, END 1127
[2023-07-31 11:34] VITALS: BP 95/51; PULSE 58; RESP 20; O2SAT 96
[2023-07-31 11:44] VITALS: BP 103/66; PULSE 52; RESP 18; O2SAT 98
[2023-07-31 11:54] VITALS: BP 155/72; PULSE 50; RESP 11; O2SAT 100
== END 2023-07-31 12:03 | disposition home or self-care (01) ==
PROVIDERS: PCP Internal Medicine; Visit Provider Internal Medicine Gastroenterology
PROC: 0DJ08ZZ Inspection of Upper Intestinal Tract, Via Natural or Artificial Opening Endoscopic (ICD-10-PCS; CPT 43235; principal; 2023-07-31 10:30)
DX: C18.7 Malignant neoplasm of sigmoid colon (principal); D12.4 Benign neoplasm of descending colon; K64.8 Other hemorrhoids; K31.7 Polyp of stomach and duodenum; D53.9 Nutritional anemia, unspecified; Z80.0 Family history of malignant neoplasm of digestive organs; I48.0 Paroxysmal atrial fibrillation; K21.9 Gastro-esophageal reflux disease without esophagitis; I10 Essential (primary) hypertension; G47.33 Obstructive sleep apnea (adult) (pediatric); F32.A Depression, unspecified; F10.10 Alcohol abuse, uncomplicated; Z86.718 Personal history of other venous thrombosis and embolism; Z86.711 Personal history of pulmonary embolism; Z79.01 Long term (current) use of anticoagulants; E66.9 Obesity, unspecified; Z68.30 Body mass index [BMI] 30.0-30.9, adult
CPT/HCPCS: 43251; 45385; 88305; J2704; J7120

== ENCOUNTER → 2023-08-15 10:44 | Outpatient (REF) | payer MEDICARE, SELFPAY | LOC: ANHLAB 10:44 | PROVIDERS: PCP Internal Medicine; Visit Provider Plastic Surgery | DX: L72.11 Pilar cyst (principal) | CPT/HCPCS: 88305 ==

== ENCOUNTER 2023-09-21 01:02 | Day surgery (SDC) | payer MEDICARE, SELFPAY ==
--- NOTE | 2023-09-17 13:22 | PC.NURSE ---
pt has colonoscopy scheduled for 2022. attempts made to call pt to go over instructions and stopping blood thinner. messages left x3, pt has not called back. called pts contact listed, son awilda, he states he knows father is aware of date and time, he is going to drive his father. he will text pt and ask him to call office. also states he will make his dad aware to stop his blood thinner after 09/18/23.
[2023-09-17 13:33] VITALS: BMI 30.4
--- NOTE | 2023-09-20 13:52 | WPDANESEPPF ---
Anes - Initial Pre Proc Eval Procedure: Operation Date: 09/21/23 11:00 Proposed Procedures p Esophagogastroduodenoscopy & Colonoscopy - Sergio Portillo MD Date/Time: 09/20/23 13:52 Surgeon: Sergio Portillo MD Pre Op Diagnosis: polyp of stomach and duodenum, Patient Data Age: 77 Gender: M Height: 1.7 m Weight: 88.18 kg Allergies Allergy/AdvReac Type Severity Reaction Status Date / Time amlodipine Allergy Intermediate Swelling Verified 09/21/23 10:00 Home Medications Medication Instructions Recorded Confirmed Type famotidine 20 mg tablet 20 mg PO BID 02/25/21 09/17/23 History folic acid 1 mg PO DAILY 02/25/21 09/17/23 History losartan 100 mg tablet 100 mg PO DAILY 02/25/21 09/21/23 History multivitamin 1 tablet PO DAILY 02/25/21 09/17/23 History rivaroxaban 20 mg tablet (Xarelto) 20 mg PO DAILY 02/25/21 09/17/23 History sildenafil 50 mg tablet 50 mg PO DAILY PRN Erectile 02/25/21 09/17/23 History Dysfunction thiamine HCl (vitamin B1) 100 mg 100 mg PO DAILY 02/25/21 09/17/23 History tablet amiodarone 200 mg tablet 200 mg PO DAILY 30 days #30 tabs 02/28/21 09/21/23 Rx hydrochlorothiazide 25 mg tablet 12.5 mg PO DAILY 90 days #45 tabs 05/23/23 09/21/23 Rx levothyroxine 50 mcg tablet 50 mcg PO DAILY #90 tabs 08/23/23 09/21/23 Rx Patient hx anesthesia problems: none Family hx anesthesia problems: none Results Review: All pre-operative results and documents have been reviewed as part of the pre-operative evaluation. [facility] Past Medical History Medical History (Updated 08/01/23 @ 12:34 by Sergio Portillo MD) Atrial fibrillation Chronic alcohol abuse Depression DVT (deep venous thrombosis) Family hx of colon cancer GERD (gastroesophageal reflux disease) Hypertension Macrocytic anemia CHEO (obstructive sleep apnea) Pulmonary embolism Surgical History Surgical History History of cholecystectomy History of total knee arthroplasty Family History Family History Mother Cancer Social History Social History (Updated 09/03/23 @ 09:07 by Usha Bajwa MA) Smoking status: Never smoker Second hand tobacco smoke exposure: No Alcohol intake: current Alcohol use details: daily, wine Substance use: never Substance use type: does not use Other substance usage details: on occasion Lack of Transportation: No Lack of Food: Never True Current Housing: I Have Housing Concerned About Future Housing: No Difficulty Paying Gas/Electric Bills: No Difficulty Paying for Meds: No Currently Unemployed: No Education: High School Diploma/GED Difficulty w/ Childcare or Family Care: No Living arrangements: alone Additional living arrangements comments: Son and sister both live few blocks away Gender identity (if verbalized by the patient): Male Sexual Orientation (if Verbalized by the Patient): Straight or Heterosexual Spiritual care concerns: No Anes - Eval Final PreProcedure Day of Procedure 09/20/23 13:52 Patient weight: obese Heart: regular rate and rhythm Lungs: clear to auscultation Airway: Mallampati scale class II Neurological: alert and oriented Last oral intake: >/= 8 hours ASA classification: III Emergent: no Anesthetic plan: proceed Anesthesia type and monitoring: general GIVS and standard monitoring Results Review: All pre-operative results and documents have been reviewed as part of the pre-operative evaluation. Informed Consent: The patient's anesthetic plan and its attendant risks and benefits were discussed with the patient/family/POA. Questions were solicited and answers provided to the satisfaction of the patient/family/POA.
[2023-09-21 10:02] VITALS: BP 145/78; PULSE 66; RESP 20; TEMP 36.2; O2SAT 100
[2023-09-21] MEDS: LACTATED RINGERS 1,000 ML 150 ML IV CONT (10:19)
--- NOTE | 2023-09-21 10:36 | PM.HPGS ---
History of Present Illness History of Present Illness Consent: Risks, benefits, and alternatives have been discussed and questions answered. Patient agrees to proceed with procedure. Chief complaint: polyp of stomach and duodenum, Narrative: Murphy Contreras is a 77 year old male Presents for follow-up colonoscopy an EGD. Recent colonoscopy and EGD were performed 6 weeks ago. Patient had a rather large polyp in the stomach. Patient denies abdominal pain but presents for follow-up EGD to document healing of this large area. Also to ensure complete resection of this polyp. Patient had multiple large polyps in the colon. 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 Patient returns today for follow-up to ensure complete resection of this lesion. Patient reports his current weight appetite bowel movements are normal. Review of Systems Review of Systems: Review of systems noncontributory. [facility] Past Medical History Medical History (Updated 08/01/23 @ 12:34 by Sergio Portillo MD) Atrial fibrillation Chronic alcohol abuse Depression DVT (deep venous thrombosis) Family hx of colon cancer GERD (gastroesophageal reflux disease) Hypertension Macrocytic anemia CHEO (obstructive sleep apnea) Pulmonary embolism Surgical History Surgical History History of cholecystectomy History of total knee arthroplasty Family History Family History Mother Cancer Social History Social History (Updated 09/03/23 @ 09:07 by Usha Bajwa MA) Smoking status: Never smoker Second hand tobacco smoke exposure: No Alcohol intake: current Alcohol use details: daily, wine Substance use: never Substance use type: does not use Other substance usage details: on occasion Lack of Transportation: No Lack of Food: Never True Current Housing: I Have Housing Concerned About Future Housing: No Difficulty Paying Gas/Electric Bills: No Difficulty Paying for Meds: No Currently Unemployed: No Education: High School Diploma/GED Difficulty w/ Childcare or Family Care: No Living arrangements: alone Additional living arrangements comments: Son and sister both live few blocks away Gender identity (if verbalized by the patient): Male Sexual Orientation (if Verbalized by the Patient): Straight or Heterosexual Spiritual care concerns: No Meds Home Medications and Allergies Home Medications Medication Instructions Recorded Confirmed Type famotidine 20 mg tablet 20 mg PO BID 02/25/21 09/17/23 History folic acid 1 mg PO DAILY 02/25/21 09/17/23 History losartan 100 mg tablet 100 mg PO DAILY 02/25/21 09/21/23 History multivitamin 1 tablet PO DAILY 02/25/21 09/17/23 History rivaroxaban 20 mg tablet (Xarelto) 20 mg PO DAILY 02/25/21 09/17/23 History sildenafil 50 mg tablet 50 mg PO DAILY PRN Erectile 02/25/21 09/17/23 History Dysfunction thiamine HCl (vitamin B1) 100 mg 100 mg PO DAILY 02/25/21 09/17/23 History tablet amiodarone 200 mg tablet 200 mg PO DAILY 30 days #30 tabs 02/28/21 09/21/23 Rx hydrochlorothiazide 25 mg tablet 12.5 mg PO DAILY 90 days #45 tabs 05/23/23 09/21/23 Rx levothyroxine 50 mcg tablet 50 mcg PO DAILY #90 tabs 08/23/23 09/21/23 Rx Allergies Allergy/AdvReac Type Severity Reaction Status Date / Time amlodipine Allergy Intermediate Swelling Verified 09/21/23 10:00 Vital Signs Vital Signs - 24 hr 09/21/23 10:02 Temperature 97.2 F L Pulse Rate 66 Respiratory Rate 20 Blood Pressure 145/78 H Pulse Oximetry 100 Oxygen Delivery Room Air Exam Narrative: Physical exam reveals patient to be alert. Vital signs stable. HEENT exam is unremarkable. Patient is anicteric. Lungs are clear to auscultation and percussion. Heart is without murmur or extra sounds. Abdomen bowel sounds present soft nontender with no organomegaly. Digital ex
--- NOTE | 2023-09-21 11:33 | SUR.OPER ---
EGD began at 1123 and ended at 1128. Colonoscopy began at 1134.
[2023-09-21 11:57] VITALS: BP 111/58; PULSE 47; RESP 22; O2SAT 100
[2023-09-21 12:07] VITALS: BP 112/65; PULSE 51; RESP 18; O2SAT 100
[2023-09-21 12:17] VITALS: BP 106/62; PULSE 51; RESP 19; O2SAT 100
[2023-09-21] MEDS: PROPARACAINE HCL 0.5% 15 ML OPHTH SOLN 1 DROP EACH EYE (12:42)
[2023-09-21] MEDS: ARTIFICIAL TEARS OPHTH SOLN 15 ML BOTTLE 1 DROP EACH EYE (12:48)
--- NOTE | 2023-09-21 12:50 | SUR.PHASEII ---
Patient complaining of blurry vision and eye irritation to left side. Dr Youssef at bedside. Eye drops provided. Patient states it feels better and will continue his home eye drops. Instructed to see an eye doctor if symptoms persist.
== END 2023-09-21 12:51 | disposition home or self-care (01) ==
PROVIDERS: PCP Internal Medicine; Visit Provider Internal Medicine Gastroenterology
PROC: 0DJ08ZZ Inspection of Upper Intestinal Tract, Via Natural or Artificial Opening Endoscopic (ICD-10-PCS; CPT 43235; principal; 2023-09-21 11:00)
DX: C18.9 Malignant neoplasm of colon, unspecified (principal); D12.4 Benign neoplasm of descending colon; D12.5 Benign neoplasm of sigmoid colon; K63.5 Polyp of colon; D53.9 Nutritional anemia, unspecified; I48.91 Unspecified atrial fibrillation; K21.9 Gastro-esophageal reflux disease without esophagitis; I10 Essential (primary) hypertension; G47.33 Obstructive sleep apnea (adult) (pediatric); F32.A Depression, unspecified; Z86.711 Personal history of pulmonary embolism; Z79.01 Long term (current) use of anticoagulants; E66.9 Obesity, unspecified; Z68.30 Body mass index [BMI] 30.0-30.9, adult
CPT/HCPCS: 45385; 43251; 88305; A9270; J2704; J7120

== ENCOUNTER 2023-10-15 13:24 | Outpatient (CLI) | payer MEDICARE, SELFPAY ==
[2023-10-15 13:44] LABS: Basophils Absolute Auto 0.1 K/mm3 (0.0-0.1); Basophils Percent Auto 1.1 % (0.2-1.2); Eosinophils Absolute Auto 0.1 K/mm3 (0-0.3); Eosinophils Percent Auto 2.1 % (0-4.4); Hematocrit 34.4 % (42.0-52.0); Hemoglobin 11.7 g/dL (14.0-18.0); Immature Granulocyte Absolute 0.01 K/mm3 (0.00-0.031); Immature Granulocyte Percent A 0.2 % (0-0.5); Lymphocytes Absolute Auto 1.33 K/mm3 (0.9-3.2); Lymphocytes Percent Auto 28.5 % (18.3-44.2); Mean Corpuscular Hemoglobin 36.7 pg (26-34); Mean Corpuscular Volume 107.8 fl (80-100); Mean Platelet Volume 8.5 fl (7.4-10.4); Monocytes Absolute Auto 0.5 K/mm3 (0.1-0.6); Monocytes Percent Auto 9.9 % (2.6-8.5); Neutrophils Absolute Auto 2.7 K/mm3 (1.3-6.7); Neutrophils Percent Auto 58.2 % (45.5-73.1); Platelet Count Result 187 k/mm3 (150-375); Red Blood Count 3.19 M/mm3 (4.6-6.20); Red Cell Distribution Width 13.9 % (11.5-14.5); White Blood Count 4.7 K/mm3 (4.5-10.0)
[2023-10-15 18:23] LABS: Iron 146 ug/dL (49-181); Percent Iron Saturation 74 % (20-50)
[2023-10-15 18:32] LABS: Alanine Aminotransferase 12 U/L (6-50); Albumin Level 4.1 g/dL (3.5-5.1); Alkaline Phosphatase 69 U/L (38-126); Anion Gap 8 mmol/L (8-16); Aspartate Amino Transferase 32 U/L (17-59); Bilirubin,Total 0.7 mg/dL (0.2-1.3); Blood Urea Nitrogen 17 mg/dL (9-20); Calcium 9.3 mg/dL (8.4-10.2); Carbon Dioxide 29 mmol/L (22-30); Chloride 103 mmol/L (98-107); Estimated Glomerular Filt Rate > 60; Glucose 108 mg/dL (65-110); Potassium 4.7 mmol/L (3.4-5.0); Sodium 140 mmol/L (137-145)
[2023-10-15 19:40] LABS: Folic Acid > 20.0 ng/mL (2.76->20)
== END 2023-10-15 13:25 | disposition home or self-care (01) ==
LOC: ANHLAB 13:27
PROVIDERS: PCP Internal Medicine; Visit Provider Internal Medicine Hematology & Oncology
DX: D64.9 Anemia, unspecified (principal)
CPT/HCPCS: 36415; 80053; 82607; 82728; 82746; 83540; 83550; 85025

== ENCOUNTER 2024-02-11 13:32 | Outpatient (CLI) | payer MEDICARE, SELFPAY ==
[2024-02-11 13:47] LABS: Basophils Absolute Auto 0.1 K/mm3 (0.0-0.1); Basophils Percent Auto 1.4 % (0.2-1.2); Eosinophils Absolute Auto 0.1 K/mm3 (0-0.3); Eosinophils Percent Auto 1.4 % (0-4.4); Hemoglobin 11.7 g/dL (14.0-18.0); Immature Granulocyte Absolute 0.01 K/mm3 (0.00-0.031); Immature Granulocyte Percent A 0.2 % (0-0.5); Lymphocytes Absolute Auto 1.48 K/mm3 (0.9-3.2); Lymphocytes Percent Auto 29.4 % (18.3-44.2); Mean Corpuscular HGB Conc 34.4 g/dl (32-36); Mean Corpuscular Hemoglobin 37.4 pg (26-34); Mean Corpuscular Volume 108.6 fl (80-100); Mean Platelet Volume 8.1 fl (7.4-10.4); Monocytes Absolute Auto 0.6 K/mm3 (0.1-0.6); Monocytes Percent Auto 11.1 % (2.6-8.5); Neutrophils Absolute Auto 2.8 K/mm3 (1.3-6.7); Neutrophils Percent Auto 56.5 % (45.5-73.1); Platelet Count Result 177 k/mm3 (150-375); Red Blood Count 3.13 M/mm3 (4.6-6.20); Red Cell Distribution Width 12.8 % (11.5-14.5)
[2024-02-11 19:25] LABS: Iron 132 ug/dL (49-181)
[2024-02-11 19:46] LABS: Percent Iron Saturation 74 % (20-50)
[2024-02-11 20:28] LABS: Alanine Aminotransferase 31 U/L (6-50); Albumin Level 3.9 g/dL (3.5-5.1); Alkaline Phosphatase 84 U/L (38-126); Anion Gap 4 mmol/L (8-16); Aspartate Amino Transferase 59 U/L (17-59); Bilirubin,Total 0.7 mg/dL (0.2-1.3); Blood Urea Nitrogen 20 mg/dL (9-20); Calcium 9.3 mg/dL (8.4-10.2); Carbon Dioxide 27 mmol/L (22-30); Chloride 101 mmol/L (98-107); Estimated Glomerular Filt Rate 54; Glucose 91 mg/dL (65-110); Potassium 4.6 mmol/L (3.4-5.0); Sodium 132 mmol/L (137-145)
[2024-02-11 21:40] LABS: Folic Acid > 20.0 ng/mL (2.76->20); Vitamin B12 > 1000.0 pg/mL (239-931)
== END 2024-02-11 13:33 | disposition home or self-care (01) ==
LOC: ANHLAB 13:34
PROVIDERS: PCP Internal Medicine; Visit Provider Internal Medicine Hematology & Oncology
DX: D64.9 Anemia, unspecified (principal)
CPT/HCPCS: 36415; 80053; 82607; 82728; 82746; 83540; 83550; 85025

== ENCOUNTER 2024-04-02 11:15 | Outpatient (CLI) | payer MEDICARE, SELFPAY ==
[2024-04-02 11:42] LABS: Hematocrit 33.3 % (42.0-52.0); Hemoglobin 11.2 g/dL (14.0-18.0); Mean Corpuscular HGB Conc 33.6 g/dl (32-36); Mean Corpuscular Volume 109.9 fl (80-100); Mean Platelet Volume 8.7 fl (7.4-10.4); Platelet Count Result 175 k/mm3 (150-375); Red Blood Count 3.03 M/mm3 (4.6-6.20); Red Cell Distribution Width 13.2 % (11.5-14.5)
[2024-04-02 18:19] LABS: Iron 162 ug/dL (49-181)
[2024-04-02 18:29] LABS: Percent Iron Saturation 101 % (20-50)
[2024-04-02 18:35] LABS: Cholesterol 205 mg/dL (0-200); HDL Direct 103 mg/dL; Triglycerides 77 mg/dL (<150)
[2024-04-02 18:46] LABS: LDL Cholesterol Direct 90 mg/dL
== END 2024-04-02 11:16 | disposition home or self-care (01) ==
LOC: ANHLAB 11:19
PROVIDERS: Nurse Practitioner; PCP Internal Medicine; Visit Provider Internal Medicine Hematology & Oncology
DX: E03.9 Hypothyroidism, unspecified (principal); E78.5 Hyperlipidemia, unspecified; D64.9 Anemia, unspecified
CPT/HCPCS: 36415; 80061; 82607; 82728; 83540; 83550; 84443; 85027

== ENCOUNTER 2024-05-02 01:18 | Inpatient (IN) | payer MEDICARE, SELFPAY ==
[2024-05-02] VITALS (21 sets, daily range): BP systolic 80–137; BP diastolic 62–82; PULSE 70–94; RESP 15–22; TEMP 36.4–36.9; O2SAT 97–100; BMI 30.4; BMI 30.6
--- NOTE | 2024-05-02 | ECHO_ITS ---
Patient Info Name: Murphy Contreras Age: 78 years : 1945 Gender: Male Ht: 67 in Wt: 195 lbs BSA: 2.07 m2 HR: 80 bpm BP: 137 / 82 mmHg Heart Rhythm: Atrial Fibrillation Technical Quality: Fair Exam Date: 05/02/2024 8:27 AM Exam Location: Echo Lab Patient Status: Inpatient Admit Date: 05/02/2024 Staff Ordering Physician: Hans Ortiz MD [employer] Specialist: Taylor Leon RDCS Attending Provider: Hans Ortiz MD Referring Physician: Angel SEYMOUR; Exam Type: CA echo dop color flow w con Study Info Indications - sob Complete two-dimensional, color flow and Doppler transthoracic echocardiogram is performed with contrast to opacify the left ventricle and to improve the deliniation of the left ventricle endocardial borders. Contrast/Agitated Saline Contrast/Ag. Saline: Definity Amount: 2.00 ml Administered By: Taylor Leon RDCS Existing IV Access: Yes IV Access Condition: patent with no signs of infiltration Summary 1. Definity contrast utilized to improve visualization. 2. Left ventricular hypertrophy with vigorous systolic contractility. 3. Trivial aortic regurgitation. 4. Moderate biatrial dilation. 5. Atrial fibrillation. Left Ventricle Left ventricular chamber dimension is normal. Left ventricular systolic function is normal, estimated at 65-70%. There is mild concentric increased left ventricular wall thickness. Right Ventricle Right ventricular chamber dimension is normal. Left Atria Left atrial chamber dimension is moderately enlarged. Right Atria Right atrial chamber dimension is moderately enlarged. Aortic Valve The aortic valve is trileaflet. There is mild aortic valve sclerosis. There is trace aortic valve regurgitation. Pulmonic Valve The pulmonic valve is not well visualized. Mitral Valve The mitral valve has normal leaflets. Tricuspid Valve The tricuspid valve leaflets are normal. Pericardium/Pleural The pericardium appears normal. Aorta The aortic root size at the sinus of Valsalva is normal. Left Ventricular Outflow Tract Name Value Normal LVOT 2D LVOT Diameter 2.37 cm LVOT Doppler LVOT Peak Gradient 2 mmHg LVOT Mean Gradient 1 mmHg LVOT VTI 14.78 cm LVOT VTI/AV VTI Ratio 0.70 LVOT Stroke Volume 64.90 ml LVOT CO 4.32 l/min LVOT CI 2.09 L/min/m2 Pulmonic Valve Name Value Normal RVOT Doppler RVOT Peak Gradient 1 mmHg PV Doppler PV Peak Gradient 2 mmHg Mitral Valve Name Value Normal
--- NOTE | ~2024-05-02 | XR_ITS ---
Portable chest x-ray Comparison: 09/16/2018 Clinical History: Chest pain Findings: Lungs are clear, without focal consolidation or pleural effusion. Cardiomediastinal silho uette is stable. Bones and soft tissues are unremarkable. Impression: Clear lungs. Reviewed, dictated and finalized at location . Impression: Clear lungs.
--- NOTE | ~2024-05-02 | US_ITS ---
EXAMINATION: US arterial ankle brachial ind DATE: 05/02/2024 11:14 INDICATION: Claudication TECHNIQUE: Segmental pressures and plethysmographic and Doppler waveforms of the brachial and lower e xtremity arteries were obtained. COMPARISON: None. FINDINGS: Right and left brachial artery pressures of 112 mm Hg and 112 mm Hg, respectively, are concordant (no rmal difference <= 30 mmHg). The right ankle-brachial index (VERONA) is 2.13 (normal >= 0.9-1.0). The right great toe-brachial index (TBI) is 0.77 (normal >= 0.65). Arterial Doppler waveforms are triphasic at the right posterior tibia l and biphasic at the right dorsalis pedis artery, both with brisk systolic upstrokes. The left VERONA is 2.26. The left TBI is 0.85. Arterial Doppler waveforms are triphasic at the left post erior tibial and biphasic at the left dorsalis pedis artery, both with brisk systolic upstrokes. IMPRESSION: 1. No significant arterial occlusive disease to either lower limb with normal bilateral ABIs and TBIs Reviewed, dictated and finalized at location A. IMPRESSION: 1. No significant arterial occlusive disease to either lower limb with normal b ilateral ABIs and TBIs
--- NOTE | 2024-05-02 01:21 | ECG_ITS ---
Test Date: 2024-05-02 01:21:17 Measurements Intervals [place] Rate: 83 P: 0 [place]: 0 QRS: -74 QRSD: 176 T: 9 QT: 435 QTc: 513 Interpretive Statements ATRIAL FIBRILLATION RIGHT BUNDLE BRANCH BLOCK [120+ ms QRS DURATION, UPRIGHT V1, 40+ ms S IN I/aVL/V4/V5/V6] LEFT ANTERIOR FASCICULAR BLOCK [QRS AXIS <= -45, QR IN I, RS IN II] ABNORMAL ECG No previous ECG available for comparison Electronically Signed On 05-02-2024 07:15:56 CDT by Magnus Delong M.D.
[2024-05-02 01:57] LABS: Basophils Absolute Auto 0.1 K/mm3 (0.0-0.1); Basophils Percent Auto 1.1 % (0.2-1.2); Eosinophils Absolute Auto 0.1 K/mm3 (0-0.3); Eosinophils Percent Auto 1.7 % (0-4.4); Hematocrit 34.6 % (42.0-52.0); Hemoglobin 11.8 g/dL (14.0-18.0); Immature Granulocyte Absolute 0.02 K/mm3 (0.00-0.031); Immature Granulocyte Percent A 0.3 % (0-0.5); Lymphocytes Absolute Auto 1.79 K/mm3 (0.9-3.2); Lymphocytes Percent Auto 26.9 % (18.3-44.2); Mean Corpuscular HGB Conc 34.1 g/dl (32-36); Mean Corpuscular Hemoglobin 37.3 pg (26-34); Mean Corpuscular Volume 109.5 fl (80-100); Mean Platelet Volume 8.7 fl (7.4-10.4); Monocytes Absolute Auto 0.9 K/mm3 (0.1-0.6); Monocytes Percent Auto 12.8 % (2.6-8.5); Neutrophils Absolute Auto 3.8 K/mm3 (1.3-6.7); Neutrophils Percent Auto 57.2 % (45.5-73.1); Platelet Count Result 210 k/mm3 (150-375); Red Blood Count 3.16 M/mm3 (4.6-6.20); Red Cell Distribution Width 13.6 % (11.5-14.5); White Blood Count 6.7 K/mm3 (4.5-10.0)
[2024-05-02 02:00] LABS: INR 2.4; Prothrombin Time 26.7 Seconds (11.1-14.7)
[2024-05-02 02:01] LABS: Partial Thromboplastin Time 42.3 Seconds (22.3-36.8)
[2024-05-02 02:07] LABS: Alanine Aminotransferase 17 U/L (6-50); Albumin Level 3.8 g/dL (3.5-5.1); Alkaline Phosphatase 107 U/L (38-126); Anion Gap 10 mmol/L (4-12); Aspartate Amino Transferase 34 U/L (17-59); Bilirubin,Total 0.8 mg/dL (0.2-1.3); Blood Urea Nitrogen 17 mg/dL (9-20); Calcium 9.1 mg/dL (8.4-10.2); Carbon Dioxide 23 mmol/L (22-30); Chloride 104 mmol/L (98-107); Estimated CRCL calculation 49 ml/min; Estimated Glomerular Filt Rate 59; Glucose 86 mg/dL (65-110); Lipase 71 U/L (23-300); Potassium 4.2 mmol/L (3.4-5.0); Sodium 137 mmol/L (137-145)
[2024-05-02 02:09] LABS: Magnesium 1.6 mg/dL (1.6-2.3)
--- NOTE | 2024-05-02 02:09 | ED.CHESTPAIN ---
HPI - Chest Pain General Chief Complaint: Chest Pain Stated Complaint: CHEST DISCOMFORT W/ ABDULLAHI Time Seen by Provider: 05/02/24 01:28 History of Present Illness HPI narrative: Patient is a 78-year-old male who presents to the emergency department this evening with complaint of feeling funny. Patient states that he has noticed that he has been getting weaker and weaker throughout the past 3 weeks and states that now within the past 3 days he noticed that just getting from 1 area of the house to the other he becomes very weak and gets very short of breath. Patient denies any history of cardiovascular disease, admits a history of hypertension, and denies any previous LA. When asked regarding chest pain, he states that he does not have any chest pain but he has felt intermittent chest tightness and pressure throughout the past 24 hours. Denies any nausea or vomiting, any abdominal pain and denies any fevers or chills. Related Data Home Medications Medication Instructions Recorded Confirmed folic acid 1 mg PO DAILY 02/25/21 02/27/24 losartan 100 mg tablet 100 mg PO DAILY 02/25/21 02/27/24 multivitamin 1 tablet PO DAILY 02/25/21 02/27/24 rivaroxaban 20 mg tablet (Xarelto) 20 mg PO DAILY 02/25/21 02/27/24 thiamine HCl (vitamin B1) 100 mg 100 mg PO DAILY 02/25/21 02/27/24 tablet cholecalciferol (vitamin D3) 125 125 mcg PO DAILY 02/27/24 02/27/24 mcg (5,000 unit) capsule ferrous sulfate 325 mg (65 mg 325 mg PO DAILY 02/27/24 02/27/24 iron) tablet mecobalamin (vitamin B12) 1,000 1,000 mcg PO DAILY 02/27/24 02/27/24 mcg chewable tablet vitamin B complex-folic acid 0.4 1 tablet PO DAILY 02/27/24 02/27/24 mg tablet Allergies Allergy/AdvReac Type Severity Reaction Status Date / Time amlodipine Allergy Intermediate Swelling Verified 02/27/24 09:56 Review of Systems Review of Systems: All systems are reviewed and are negative unless stated otherwise in the HPI. [facility] Past Medical History Medical History Atrial fibrillation Chronic alcohol abuse Depression DVT (deep venous thrombosis) Family hx of colon cancer GERD (gastroesophageal reflux disease) Hypertension Macrocytic anemia CHEO (obstructive sleep apnea) Pulmonary embolism Surgical History Surgical History History of cholecystectomy History of total knee arthroplasty Family History Family History Mother Cancer Social History Social History Smoking status: Never smoker Second hand tobacco smoke exposure: No Alcohol intake: current Alcohol use details: daily, wine Substance use: never Substance use type: does not use Other substance usage details: on occasion Lack of Transportation: No Lack of Food: Never True Current Housing: I Have Housing Concerned About Future Housing: No Difficulty Paying Gas/Electric Bills: No Difficulty Paying for Meds: No Currently Unemployed: No Education: High School Diploma/GED Difficulty w/ Childcare or Family Care: No Living arrangements: alone Additional living arrangements comments: Son and sister both live few blocks away Gender identity (if verbalized by the patient): Male Sexual Orientation (if Verbalized by the Patient): Straight or Heterosexual Spiritual care concerns: No Exam Narrative: General: Alert, awake, afebrile, in no acute distress. HEENT: PERRL, no rhinorrhea, no post nasal drip, oropharynx clear. Cardiovascular: Regular rate and rhythm, no murmurs, rubs or gallops, no peripheral edema. Respiratory: Clear to auscultation bilaterally, no tachypnea, no wheezing, no rhonchi, no rubs, no respiratory distress. Abdomen: Soft, nontender, nondistended, no rebound, no guarding, no peritoneal signs. Musculoskeletal: No joint swelling or deformity
[2024-05-02 02:12] LABS: Anisocytosis 1+; Ethanol 164 mg/dL (<10); Hypochromasia 1+; Ovalocytes 1+; Platelet Estimate Adequate (Adequate); Schistocytes None Seen
[2024-05-02 02:13] LABS: NT Pro B Type Natriuretic Pept 3550 pg/mL (19.9-100)
[2024-05-02 02:19] LABS: Troponin I < 0.012 ng/mL (0.000-0.034)
[2024-05-02 03:29] LABS: Lactic Acid Reflex 2.8 mmol/L (0.7-2.0)
[2024-05-02 03:44] LABS: Appearance Urine Clear (Clear); Bacteria Urine None Seen /hpf; Bilirubin Urine Negative (Negative); Blood Urine Non-Hemolyzed Trace (Negative); Color Urine Yellow (Yellow); Glucose Urine UA Negative (Negative); Ketones Urine Trace mg/dL (Negative); Leukocyte Esterase Ur Trace LEU/UL (Negative); Nitrate Urine Negative (Negative); Protein Urine Negative (Negative); Specific Grav Ur 1.013 (1.001-1.035); Squamous Epithelial Cell Urine None Seen /hpf (Few); WBC Urine 0-5 /hpf (0-3)
[2024-05-02 03:54] LABS: Add Urine Microscopic? YES
--- NOTE | 2024-05-02 04:08 | PM.IMHP ---
H&P: HPI History of Present Illness Date/Time: 05/02/24 04:09 Chief Complaint: sob Narrative: This is a 78-year-old male with past medical history significant for atrial fibrillation, rate controlled, anticoagulated, pulmonary embolism, deep vein thrombosis, hypothyroidism, alcohol dependence. Patient presents to the emergency room due to lightheadedness, shortness of breath at exertion, chest pain. Patient denies any nausea vomiting abdominal pain, diarrhea, fevers, rigors, chills, chest congestion, cough, sputum production, no leg swelling. This has been ongoing for the last 3-4 days. In emergency room patient was found to be orthostatic patient is states that he gets lightheaded upon standing. Preliminary workup has been essentially nonrevealing Portable chest x-ray Comparison: 09/16/2018 Clinical History: Chest pain Findings: Lungs are clear, without focal consolidation or pleural effusion. Cardiomediastinal silhouette is stable. Bones and soft tissues are unremarkable. Impression: Clear lungs. Review of Systems Review of Systems: Shortness of breath with exertion, chest pain, lightheadedness. Constitutional: Constitutional: Denies body ache(s), Denies chills, Denies fever(s), Denies night sweats and Denies weakness Eyes: Eyes: Denies change in vision ENT: Denies dysphagia, Denies nasal congestion, Denies nasal discharge and Denies nasal obstruction Cardiovascular: Cardiovascular: Reports chest pain, Denies leg edema, Reports lightheadedness, Denies radiating jaw, neck or arm pain, Denies palpitations and Reports dyspnea on exertion Respiratory: Respiratory: Denies chest congestion, Denies cough and Denies excessive phlegm production Gastrointestinal: Gastrointestinal: Denies abdominal pain, Denies diarrhea, Denies nausea and Denies vomiting Genitourinary: Genitourinary: Denies dysuria Musculoskeletal: Musculoskeletal: Denies back pain and Denies myalgias Integumentary/Breasts: Skin/Breast: Denies rash Neurologic: Denies focal weakness and Denies Sensory deficit (Neuro) Psychiatric: Psychiatric: Reports no additional psychiatric complaints and Reports as per HPI Endocrine: Endocrine: Denies cold intolerance, Denies polyphagia, Denies polydipsia, Denies polyuria and Denies palpitations Hematologic/Lymphatic: Hematologic/Lymphatic: Reports no additional hematologic/lymphatic complaints and Reports as per HPI Allergic/Immunologic: Allergic/Immunologic: Reports no additional allergic/immunologic complaints and Reports as per [facility] Past Medical History Medical History (Updated 05/02/24 @ 05:15 by Hans Ortiz MD) Atrial fibrillation Chronic alcohol abuse Depression DVT (deep venous thrombosis) Family hx of colon cancer GERD (gastroesophageal reflux disease) Hypertension Macrocytic anemia CHEO (obstructive sleep apnea) Pulmonary embolism Surgical History Surgical History History of cholecystectomy History of total knee arthroplasty Family History Family History Mother Cancer Social History Social History Smoking status: Never smoker Second hand tobacco smoke exposure: No Alcohol intake: current Alcohol use details: daily, wine Substance use: never Substance use type: does not use Other substance usage details: on occasion Do You Feel Safe in your Home?: Yes Lack of Transportation: No Lack of Food: Never True Current Housing: I Have Housing Concerned About Future Housing: No Difficulty Paying Gas/Electric Bills: No Difficulty Paying for Meds: No Currently Unemployed: No Education: High School Diploma/GED Difficulty w/ Childcare or Family Care: No Living arrangements: alone Additional living arrangements comments: Son and sister both live few blocks away Gender yadi
[2024-05-02] MEDS: SODIUM CHLORIDE 0.9% IV 1,000 ML 500 ML IV CONT (04:28)
--- NOTE | 2024-05-02 05:05 | ADMGEN ---
This patient, Murphy Contreras, was admitted to IMU Room 211-01 at 0437. Patient/family oriented to hospital policies and general routines including ID bracelet, bed and alarms, visiting hours, pain management, procedures, bathroom and other care routines, personal items, smoking policy, room service/diet, and visiting hours. Information on how to activate the Rapid Response Team has been discussed. Patient/Family are encouraged to report perceived risks to care and to ask questions if they do not understand what they are told or what they should do.
[2024-05-02 05:57] LABS: Reflex Lactic Acid Yes or No Add Lactic
[2024-05-02 06:37] LABS: Lactic Acid 2.5 mmol/L (0.7-2.0)
[2024-05-02 06:49] LABS: Troponin I 0.017 ng/mL (0.000-0.034)
[2024-05-02] MEDS: PERFLUTREN LIPID MICROSPHERES 1.5 ML VIAL DILUTED TO 10 ML TOTAL VOLUME IV PUSH (09:03)
--- NOTE | 2024-05-02 09:10 | PM.IMPN ---
Progress Note: A&P Assessment and Plan (1) Chest pain: Code(s): R07.9 - Chest pain, unspecified Status: Acute (2) Exertional dyspnea: Code(s): R06.09 - Other forms of dyspnea Status: Acute (3) GERD (gastroesophageal reflux disease): Code(s): K21.9 - Gastro-esophageal reflux disease without esophagitis Status: Acute (4) Macrocytic anemia: Code(s): D53.9 - Nutritional anemia, unspecified Status: Acute (5) Hypertension: Qualifiers: Hypertension type: primary hypertension Qualified Code(s): I10 - Essential (primary) hypertension Code(s): I10 - Essential (primary) hypertension Status: Acute (6) Atrial fibrillation: Qualifiers: Atrial fibrillation type: paroxysmal Qualified Code(s): I48.0 - Paroxysmal atrial fibrillation Code(s): I48.91 - Unspecified atrial fibrillation Status: Acute (7) CHEO (obstructive sleep apnea): Code(s): G47.33 - Obstructive sleep apnea (adult) (pediatric) Status: Acute (8) Chronic alcohol abuse: Code(s): F10.10 - Alcohol abuse, uncomplicated Status: Acute Plan This is a 78-year-old male who presents to the ED with generalized weakness over the past 3 weeks and exertional shortness of breath intermittent chest pressure. No nausea vomiting abdominal pain. No fever chills. On ED evaluation vitals were stable EKG showed atrial fibrillation of 83 beats per minute no ST-T changes suggestive of acute ischemia. BNP elevated at 3550. Alcohol level noted at 164. Chest x-ray with no acute process. WBC normal hemoglobin 11.8 creatinine of 1.2 INR 2.4 patient on Xarelto. LFTs were normal. Troponin came back negative lipase was normal. Echo ordered and cardiology has been consulted. Serial troponin remains negative. Next step to further evaluate his existing dyspnea with echocardiogram will be obtained. Cardiology has been consulted and will further evaluate. Depending on the echo will do further evaluation. No respiratory symptoms reported ? Claudication will check ultrasound duplex arterial NSVT Mag is 1.6 will replace Atrial fibrillation chronic rate control anticoagulated History of PE and DVT Hypertension Hypothyroidism Alcohol dependence CHEO Depression DVT prophylaxis on Xarelto Subjective Date/time seen: 05/02/24 09:10 Interval history: No new complaints. No fever chills. Leg pain in the thighs whenever he exerts Review of Systems Review of Systems: All systems reviewed & are unremarkable except as noted in HPI and below Exam Narrative: General: Alert, awake, afebrile, in no acute distress. HEENT: PERRL, no rhinorrhea, no post nasal drip, oropharynx clear. Cardiovascular: Regular rate and rhythm, no murmurs, rubs or gallops, no peripheral edema. Respiratory: Clear to auscultation bilaterally, no tachypnea, no wheezing, no rhonchi, no rubs, no respiratory distress. Abdomen: Soft, nontender, nondistended, no rebound, no guarding, no peritoneal signs. Musculoskeletal: No joint swelling or deformity, normal muscle tone. Skin: No rashes or petechia, no signs of infection. Neurological: Alert and oriented to person, place, and time. Follows all commands. No focal deficits, speech is clear and fluent. Objective Data Vital Signs Vital Signs: Vital Signs - 24 hr 05/02/24 01:18 05/02/24 02:40 05/02/24 02:48 Temperature 98.5 F Pulse Rate 86 84 87 Respiratory Rate 16 17 15 Blood Pressure 113/70 80/65 L 94/62 L Pulse Oximetry 98 100 97 Oxygen Delivery Room Air 05/02/24 03:13 05/02/24 04:35 05/02/24 06:00 Temperature 97.5 F L Pulse Rate 82 77 80 Respiratory Rate 16 22 H Blood Pressure 104/70 137/82 Pulse Oximetry 97 100 Oxygen Delivery 05/02/24 06:03 05/02/24 07:20 Temperature 98.2 F Pulse Rate 73 Respiratory Rate 20 Blood Pressure 103/68 Pulse Oximetry 99 Oxygen Delivery Room Air Intake/Output Intake/Output: Inta
--- NOTE | 2024-05-02 09:35 | IVDEFINITY ---
Prior to administration of IV Definity the patient was educated on the risks and benefits of the imaging enhancing agent including potential adverse side effects. The patient verbalized understanding. Allergies were verified. No exclusion criteria were identified and at least one of the following inclusion criteria were met: 1) physician request, 2) patient technically difficult to image (per the [place] [employer] guidelines of two or more segments not discernable within the apical view), or 3) questionable left ventricular function. ?
--- NOTE | 2024-05-02 09:40 | ECG_ITS ---
Test Date: 2024-05-02 09:39:35 Measurements Intervals [place] Rate: 84 P: 0 [place]: 0 QRS: -82 QRSD: 165 T: 18 QT: 441 QTc: 523 Interpretive Statements ATRIAL FIBRILLATION RIGHT BUNDLE BRANCH BLOCK [120+ ms QRS DURATION, UPRIGHT V1, 40+ ms S IN I/aVL/V4/V5/V6] LEFT ANTERIOR FASCICULAR BLOCK [QRS AXIS <= -45, QR IN I, RS IN II] POSSIBLE ANTERIOR MYOCARDIAL INFARCTION [30 ms Q WAVE IN V3/V4, OR R < 0.2 mV IN V4], PROBABLY OLD INTERPRETATION BASED ON A DEFAULT AGE OF 40 YEARS Compared to ECG 05/02/2024 01:21:17 no significant changes Electronically Signed On 05-03-2024 15:48:53 CDT by Juan Abreu M.D.
[2024-05-02 09:50] LABS: Troponin I < 0.012 ng/mL (0.000-0.034)
[2024-05-02] MEDS: MAGNESIUM SULF 2 GM/WATER 50ML 2 GM/50 ML BAG IVPB (10:02)
[2024-05-02] MEDS: AMIODARONE HCL 200 MG TABLET PO (10:03)
[2024-05-02] MEDS: CHOLECALCIFEROL 1,000 UNITS TABLET 5000 UNITS PO (10:03)
[2024-05-02] MEDS: RIVAROXABAN 20 MG TABLET PO (10:04)
[2024-05-02] MEDS: THIAMINE HCL 100 MG TABLET PO (10:04)
[2024-05-02] MEDS: LEVOTHYROXINE SODIUM 50 MCG TABLET PO (10:07)
--- NOTE | 2024-05-02 10:57 | PM.CNCAR ---
Assessment and Plan Assessment and plan (1) Atrial fibrillation: Qualifiers: Atrial fibrillation type: paroxysmal Qualified Code(s): I48.0 - Paroxysmal atrial fibrillation Code(s): I48.91 - Unspecified atrial fibrillation Status: Acute Plan this is a 78-year-old man with a history of paroxysmal atrial fibrillation for about 8 years. He is admitted with generalized weakness with modest activity as mentioned above he says the symptoms began Sunday of this past week. The options of attempting to restore sinus rhythm verses excepting chronic AF with rate control and anticoagulation were discussed. He is desirous of an attempt at restoring sinus rhythm. A along those lines I am going to raise his amiodarone dosage temporarily up to 800 mg daily. I will plan on DC cardioverting him on Sunday. We also discussed the option of simply raising his amiodarone dosage and having him see an brazing furnace feeder as an outpatient for consultation. Magnus Delong MD [facility] History of Present Illness History of Present Illness Consult date/time: 05/02/24 10:57 Reason For Visit: CP, Excertional dyspnea Narrative: this is a 78-year-old man that I am seeing at the request of the hospitalist because of exertional intolerance, fatigue and atrial fibrillation. The patient is known to me for several years I see him in the office with a history of atrial fibrillation dating back to 2016. He 1st was seen in our office with AFib in the setting of a pulmonary embolism and he was treated with anticoagulation rate control and cardioverted to sinus rhythm. He has had echocardiograms that demonstrates significant left atrial dilatation and aortic valve regurgitation. Previously this was interpreted as mild to moderate it looked very mild on his last echocardiogram in my office. He was initially taken off of antiarrhythmic therapy with amiodarone with the idea that his AF was provoked by the pulmonary embolism. He later had recurrences of atrial fib he was placed back amiodarone treatment and again converted to sinus rhythm. He does not have any history of coronary artery disease and is not reporting any anginal-type chest pain. He states that on Sunday of this past week he noticed a change in his condition where he could not walk very much in his residence other than short distances a because of symptoms of significant weakness and some dyspnea. He is not having any orthopnea PND or accumulating edema. A follow-up echocardiogram has been performed but has yet to be interpreted. He continues to take amiodarone at 200 mg daily as well as systemic anticoagulation was Xarelto. He is faithful with taking his medication and does not miss any doses. I saw the patient last in the office in December of this year at which time he was in sinus rhythm. Electrocardiogram now shows atrial fib but with controlled ventricular response. Review of Systems Constitutional: Constitutional: Reports as per HPI, Reports lethargy and Reports weakness Eyes: Eyes: Reports no additional eye complaints ENT: Reports system reviewed and no additional complaints, except as documented Cardiovascular: Cardiovascular: Reports as per HPI Respiratory: Respiratory: Reports dyspnea on exertion Gastrointestinal: Gastrointestinal: Reports no additional gastrointestinal complaints Musculoskeletal: Musculoskeletal: Reports no additional musculoskeletal complaints Integumentary/Breasts: Skin/Breast: Reports system reviewed and no additional complaints, except as docu Neurologic: Reports system reviewed and no additional complaints, except as documented Endocrine: Endocrine: Reports no additional endocrine complaints Hematologic/Lymphatic: Hematologic/Lymphatic: Reports no additional hematologic/lymphatic complaints Allergic/Immunologic: Allergic/Immunologic: Reports no additional allergic/immunologic complaints PMFSH Past Medical History Medical Histo
[2024-05-02 11:22] LABS: Creatine Kinase 30 U/L (55-170)
[2024-05-02] MEDS: ASPIRIN 81 MG ENTERIC TABLET PO (11:33)
[2024-05-02] MEDS: FOLIC ACID 1 MG TABLET PO (11:33)
[2024-05-02 11:55] LABS: Glucose Point of Care 81 mg/dl (65-105)
[2024-05-02] MEDS: PANTOPRAZOLE 40 MG TABLET PO (13:30)
[2024-05-02 15:32] LABS: Glucose Point of Care 87 mg/dl (65-105)
[2024-05-02] MEDS: AMIODARONE HCL 200 MG TABLET 400 MG PO (21:14)
[2024-05-02] MEDS: ACETAMINOPHEN 325 MG TABLET 650 MG PO (22:42)
[2024-05-03] VITALS (18 sets, daily range): BP systolic 100–135; BP diastolic 61–92; PULSE 60–106; RESP 16–20; TEMP 36–36.7; O2SAT 98–100
[2024-05-03 00:17] LABS: Glucose Point of Care 99 mg/dl (65-105)
[2024-05-03] MEDS: LEVOTHYROXINE SODIUM 50 MCG TABLET PO (06:44)
[2024-05-03] MEDS: CHOLECALCIFEROL 1,000 UNITS TABLET 5000 UNITS PO (10:06)
[2024-05-03] MEDS: AMIODARONE HCL 200 MG TABLET 400 MG PO ×2 (10:06→22:22)
[2024-05-03] MEDS: THIAMINE HCL 100 MG TABLET PO (10:07)
[2024-05-03] MEDS: RIVAROXABAN 20 MG TABLET PO (10:07)
[2024-05-03] MEDS: ASPIRIN 81 MG ENTERIC TABLET PO (10:07)
[2024-05-03] MEDS: FOLIC ACID 1 MG TABLET PO (10:07)
[2024-05-03] MEDS: MULTIVITAMINS THERAPEUTIC TAB (*BKC) 1 TABLET PO (10:07)
[2024-05-03] MEDS: PANTOPRAZOLE 40 MG TABLET PO (10:07)
--- NOTE | 2024-05-03 11:19 | PM.IMPN ---
Progress Note: A&P Assessment and Plan (1) Chest pain: Code(s): R07.9 - Chest pain, unspecified Status: Acute Assessment and Plan: Echo 05/03: 1. Definity contrast utilized to improve visualization. 2. Left ventricular hypertrophy with vigorous systolic contractility. 3. Trivial aortic regurgitation. 4. Moderate biatrial dilation. 5. Atrial fibrillation. Resolved, likely due to atrial fibrillation (2) Exertional dyspnea: Code(s): R06.09 - Other forms of dyspnea Status: Acute Assessment and Plan: Likely due to atrial fibrillation, resolved (3) Atrial fibrillation: Qualifiers: Atrial fibrillation type: paroxysmal Qualified Code(s): I48.0 - Paroxysmal atrial fibrillation Code(s): I48.91 - Unspecified atrial fibrillation Status: Acute Assessment and Plan: Rate controlled with increased amiodarone Plan for cardioversion 05/05 if not maintaining sinus rhythm (4) Hypothyroid: Qualifiers: Hypothyroidism type: acquired Qualified Code(s): E03.9 - Hypothyroidism, unspecified Code(s): E03.9 - Hypothyroidism, unspecified Status: Acute Assessment and Plan: Continue home medication (5) Anemia: Qualifiers: Anemia type: unspecified type Qualified Code(s): D64.9 - Anemia, unspecified Code(s): D64.9 - Anemia, unspecified Status: Acute Assessment and Plan: Chronic, followed by Dr. Le Subjective Date/time seen: 05/03/24 11:19 Interval history: No further chest tightness palpitations or shortness of breath. Still feels weak and tired. But much better than at admission. Denied GI or difficulties. Denied abnormal bleeding except for chronic gum bleeding. Review of Systems Review of Systems: All systems reviewed & are unremarkable except as noted in HPI and below Exam Narrative: HEENT: PERRL, sclerae nonicteric, pharyngeal mucosa pink and intact NECK: No JVD CHEST: Clear to auscultation. Normal effort. HEART: NL S1/S2, irregular, no murmur. ABDOMEN: BS+, soft, nontender, no mass, no bruits EXTREMITIES: No cyanosis, edema, or clubbing NEUROLOGIC: CN intact and symmetric to inspection. MUSCULOSKELETAL: Tone and strength symmetric. PSYCH: Alert. Oriented to person, place, and time. Objective Data Vital Signs Vital Signs: Vital Signs - 24 hr 05/02/24 11:40 05/02/24 11:46 05/02/24 15:34 Temperature 97.5 F L 97.5 F L 98.4 F Pulse Rate 70 70 94 Pulse Rate [Monitor] Respiratory Rate 20 20 20 Blood Pressure 110/66 110/66 124/77 Pulse Oximetry 97 97 98 Oxygen Delivery 05/02/24 12:00 05/02/24 16:00 05/02/24 12:00 Temperature Pulse Rate 92 Pulse Rate [Monitor] Respiratory Rate Blood Pressure Pulse Oximetry Oxygen Delivery Room Air Room Air 05/02/24 14:00 05/02/24 16:00 05/02/24 18:00 Temperature Pulse Rate 74 77 79 Pulse Rate [Monitor] Respiratory Rate Blood Pressure Pulse Oximetry Oxygen Delivery 05/02/24 19:07 05/02/24 21:14 05/02/24 20:00 Temperature 97.5 F L Pulse Rate 90 83 Pulse Rate [Monitor] 90 Respiratory Rate 20 Blood Pressure 105/72 105/72 Pulse Oximetry 98 Oxygen Delivery 05/02/24 20:00 05/02/24 20:00 05/02/24 22:00 Temperature Pulse Rate 90 84 83 Pulse Rate [Monitor] Respiratory Rate 20 Blood Pressure Pulse Oximetry 98 Oxygen Delivery Room Air 05/03/24 00:00 05/03/24 00:00 05/03/24 00:00 Temperature 97.4 F L Pulse Rate 60 60 Pulse Rate [Monitor] 60 Respiratory Rate 16 16 Blood Pressure 118/79 118/79 Pulse Oximetry 98 98 Oxygen Delivery Room Air 05/03/24 00:00 05/03/24 01:50 05/03/24 04:00 Temperature 97 F L Pulse Rate 77 62 103 H Pulse Rate [Monitor] Respiratory Rate 16 Blood Pressure 117/63 Pulse Oximetry 99 Oxygen Delivery 05/03/24 04:00 05/03/24 04:00 05/03/24 04:00 Temperature Pulse Rate
--- NOTE | 2024-05-03 13:58 | PM.PNCARD ---
Progress Note: A&P Assessment and Plan (1) Atrial fibrillation: Qualifiers: Atrial fibrillation type: paroxysmal Qualified Code(s): I48.0 - Paroxysmal atrial fibrillation Code(s): I48.91 - Unspecified atrial fibrillation Status: Acute Plan Persistent atrial fibrillation Hypertension controlled Continue Xarelto Continue losartan Continue amiodarone Cardioversion on Sunday Subjective Date/time seen: 05/03/24 13:58 Interval history: No acute events Telemetry AFib rate controlled 70s Review of Systems Review of Systems: All systems reviewed & are unremarkable except as noted in HPI and below Exam Const: General: comfortable and no acute distress Other: Able to lie flat HENMT: Face/Nose/Sinus: Normal nares present and no epistaxis Mouth: Yes moist mucous membranes Eyes: Sclera: sclerae normal Pupils: Equal, round and reactive pupils present Neck: Neck: supple and no JVD Carotids: no bruits Resp: Auscultation: clear to auscultation bilaterally and lung sounds not diminished Other: No chest wall tenderness Cardio: Rate: regular rate Rhythm: abnormal rhythm irregularly irregular Heart sounds: no gallops, no murmurs and no rubs GI: GI Palp: Yes Soft to palpation and No Tenderness to palpation present (GI) Auscultation: normal bowel sounds Skin: General skin exam: normal color, rashes and/or lesions noted and no erythema Other: Warm Neuro: Cranial nerves: Yes Equal, round and reactive pupils present Speech: normal speech Other: No obvious focal deficit or facial asymmetry Extrem: General: no edema Other: Normal capillary refills Intact distal pulses. Objective Data Vital Signs Vital Signs: Vital Signs - 24 hr 05/02/24 15:34 05/02/24 16:00 05/02/24 14:00 Temperature 36.9 C Pulse Rate 94 74 Pulse Rate [Monitor] Respiratory Rate 20 Blood Pressure 124/77 Pulse Oximetry 98 Oxygen Delivery Room Air 05/02/24 16:00 05/02/24 18:00 05/02/24 19:07 Temperature 36.4 C L Pulse Rate 77 79 90 Pulse Rate [Monitor] Respiratory Rate 20 Blood Pressure 105/72 Pulse Oximetry 98 Oxygen Delivery 05/02/24 21:14 05/02/24 20:00 05/02/24 20:00 Temperature Pulse Rate 83 90 Pulse Rate [Monitor] 90 Respiratory Rate 20 Blood Pressure 105/72 Pulse Oximetry 98 Oxygen Delivery Room Air 05/02/24 20:00 05/02/24 22:00 05/03/24 00:00 Temperature 36.3 C L Pulse Rate 84 83 60 Pulse Rate [Monitor] Respiratory Rate 16 Blood Pressure 118/79 Pulse Oximetry 98 Oxygen Delivery 05/03/24 00:00 05/03/24 00:00 05/03/24 00:00 Temperature Pulse Rate 60 77 Pulse Rate [Monitor] 60 Respiratory Rate 16 Blood Pressure 118/79 Pulse Oximetry 98 Oxygen Delivery Room Air 05/03/24 01:50 05/03/24 04:00 05/03/24 04:00 Temperature 36.1 C L Pulse Rate 62 103 H Pulse Rate [Monitor] 79 Respiratory Rate 16 Blood Pressure 117/63 117/63 Pulse Oximetry 99 Oxygen Delivery 05/03/24 04:00 05/03/24 04:00 05/03/24 05:42 Temperature Pulse Rate 79 79 65 Pulse Rate [Monitor] Respiratory Rate 16 Blood Pressure Pulse Oximetry 99 Oxygen Delivery Room Air 05/03/24 07:55 05/03/24 10:06 05/03/24 11:50 Temperature 36.0 C L 36.1 C L Pulse Rate 79 79 82 Pulse Rate [Monitor] Respiratory Rate 18 20 Blood Pressure 132/80 135/92 H Pulse Oximetry 98 100 Oxygen Delivery Intake/Output Intake/Output: Intake & Output 04/30/24 05/01/24 05/02/24 05/03/24 23:59 23:59 23:59 23:59 Intake Total 1515 920 Output Total 501 1270 Balance 1014 -350 Meds/Results Medications: Active Medications Generic Name Dose Route Start Last Admin Trade Name Freq PRN Reason Stop Dose Admin Acetaminophen 650 mg 05/02/24 22:17 05/02/24 22:42 Acetaminophen 325 Mg Tablet PO 650 mg Q6H PRN Administration Mild Pain (1-3) or Fever Amio
[2024-05-04] VITALS (17 sets, daily range): BP systolic 102–126; BP diastolic 47–68; PULSE 58–112; RESP 16–18; TEMP 36.2–36.8; O2SAT 96–100
[2024-05-04 04:19] LABS: Hematocrit 32.6 % (42.0-52.0); Mean Corpuscular HGB Conc 33.7 g/dl (32-36); Mean Corpuscular Hemoglobin 37.2 pg (26-34); Mean Corpuscular Volume 110.1 fl (80-100); Mean Platelet Volume 8.9 fl (7.4-10.4); Platelet Count Result 165 k/mm3 (150-375); Red Blood Count 2.96 M/mm3 (4.6-6.20); Red Cell Distribution Width 13.2 % (11.5-14.5); White Blood Count 4.3 K/mm3 (4.5-10.0)
[2024-05-04 04:39] LABS: Anion Gap 5 mmol/L (4-12); Blood Urea Nitrogen 17 mg/dL (9-20); Calcium 8.6 mg/dL (8.4-10.2); Carbon Dioxide 26 mmol/L (22-30); Chloride 103 mmol/L (98-107); Estimated CRCL calculation 53 ml/min; Estimated Glomerular Filt Rate > 60; Glucose 104 mg/dL (65-110); Potassium 3.8 mmol/L (3.4-5.0); Sodium 134 mmol/L (137-145)
[2024-05-04] MEDS: LEVOTHYROXINE SODIUM 50 MCG TABLET PO (05:35)
[2024-05-04 07:14] LABS: Free T4 Free Thyroxine Reflex 2.25 ng/dL (0.78-2.19)
[2024-05-04] MEDS: ASPIRIN 81 MG ENTERIC TABLET PO (09:13)
[2024-05-04] MEDS: CHOLECALCIFEROL 1,000 UNITS TABLET 5000 UNITS PO (09:13)
[2024-05-04] MEDS: THIAMINE HCL 100 MG TABLET PO (09:13)
[2024-05-04] MEDS: FOLIC ACID 1 MG TABLET PO (09:13)
[2024-05-04] MEDS: RIVAROXABAN 20 MG TABLET PO (09:13)
[2024-05-04] MEDS: PANTOPRAZOLE 40 MG TABLET PO (09:13)
[2024-05-04] MEDS: MULTIVITAMINS THERAPEUTIC TAB (*BKC) 1 TABLET PO (09:13)
[2024-05-04] MEDS: AMIODARONE HCL 200 MG TABLET 400 MG PO ×2 (09:13→21:38)
--- NOTE | 2024-05-04 10:01 | PM.IMPN ---
Progress Note: A&P Assessment and Plan (1) Chest pain: Code(s): R07.9 - Chest pain, unspecified Status: Acute Assessment and Plan: Echo 05/03: 1. Definity contrast utilized to improve visualization. 2. Left ventricular hypertrophy with vigorous systolic contractility. 3. Trivial aortic regurgitation. 4. Moderate biatrial dilation. 5. Atrial fibrillation. Resolved, likely due to atrial fibrillation (2) Exertional dyspnea: Code(s): R06.09 - Other forms of dyspnea Status: Acute Assessment and Plan: Likely due to atrial fibrillation, resolved (3) Atrial fibrillation: Qualifiers: Atrial fibrillation type: paroxysmal Qualified Code(s): I48.0 - Paroxysmal atrial fibrillation Code(s): I48.91 - Unspecified atrial fibrillation Status: Acute Assessment and Plan: Rate controlled with increased amiodarone Plan for cardioversion 05/05 if not maintaining sinus rhythm 05/04 Afib with rate 60's (4) Hypothyroid: Qualifiers: Hypothyroidism type: acquired Qualified Code(s): E03.9 - Hypothyroidism, unspecified Code(s): E03.9 - Hypothyroidism, unspecified Status: Acute Assessment and Plan: Continue home medication 05/03 TSH mildly elevated, will need outpatient f/u (no dose change at this time) (5) Anemia: Qualifiers: Anemia type: unspecified type Qualified Code(s): D64.9 - Anemia, unspecified Code(s): D64.9 - Anemia, unspecified Status: Acute Assessment and Plan: Chronic, followed by Dr. Le Subjective Date/time seen: 05/04/24 10:01 Interval history: Has no complaints today. Anxious to get his cardioversion done and go home tomorrow. Review of Systems Review of Systems: All systems reviewed & are unremarkable except as noted in HPI and below Exam Narrative: HEENT: PERRL, sclerae nonicteric, pharyngeal mucosa pink and intact NECK: No JVD CHEST: Clear to auscultation. Normal effort. HEART: NL S1/S2, irregular, no murmur. ABDOMEN: BS+, soft, nontender, no mass, no bruits EXTREMITIES: No cyanosis, edema, or clubbing NEUROLOGIC: CN intact and symmetric to inspection. MUSCULOSKELETAL: Tone and strength symmetric. PSYCH: Alert. Oriented to person, place, and time. Objective Data Vital Signs Vital Signs: Vital Signs - 24 hr 05/03/24 10:06 05/03/24 11:50 05/03/24 15:35 Temperature 96.9 F L 97.1 F L Pulse Rate 79 82 71 Pulse Rate [Monitor] Respiratory Rate 20 20 Blood Pressure 135/92 H 103/89 Pulse Oximetry 100 99 Oxygen Delivery 05/03/24 12:00 05/03/24 14:00 05/03/24 16:00 Temperature Pulse Rate 93 106 H 83 Pulse Rate [Monitor] Respiratory Rate Blood Pressure Pulse Oximetry Oxygen Delivery 05/03/24 12:00 05/03/24 16:00 05/03/24 18:00 Temperature Pulse Rate 74 Pulse Rate [Monitor] Respiratory Rate Blood Pressure Pulse Oximetry Oxygen Delivery Room Air Room Air 05/03/24 19:57 05/03/24 22:22 05/04/24 00:00 Temperature 98.1 F 98.3 F Pulse Rate 72 89 82 Pulse Rate [Monitor] Respiratory Rate 16 16 Blood Pressure 100/61 126/60 Pulse Oximetry 98 100 Oxygen Delivery 05/03/24 20:00 05/03/24 20:00 05/04/24 00:00 Temperature Pulse Rate 72 Pulse Rate [Monitor] 72 82 Respiratory Rate 16 Blood Pressure 100/61 126/60 Pulse Oximetry 98 Oxygen Delivery Room Air 05/04/24 00:00 05/03/24 20:00 05/03/24 22:00 Temperature Pulse Rate 82 65 74 Pulse Rate [Monitor] Respiratory Rate 16 Blood Pressure Pulse Oximetry 100 Oxygen Delivery Room Air 05/04/24 00:00 05/04/24 03:54 05/04/24 04:00 Temperature 98.0 F Pulse Rate 88 80 Pulse Rate [Monitor] 80 Respiratory Rate 16 Blood Pressure 102/60 102/60 Pulse Oximetry 96 Oxygen Delivery 05/04/24 04:00 05/04/24 02:00 05/04/24 04:00 Temperature Pulse Rate 80 70 90 Pulse Rate [Monitor]
[2024-05-04] MEDS: ACETAMINOPHEN 325 MG TABLET 650 MG PO ×2 (10:56→21:39)
--- NOTE | 2024-05-04 12:36 | PM.PNCARD ---
Progress Note: A&P Assessment and Plan (1) Atrial fibrillation: Qualifiers: Atrial fibrillation type: paroxysmal Qualified Code(s): I48.0 - Paroxysmal atrial fibrillation Code(s): I48.91 - Unspecified atrial fibrillation Status: Acute Plan Persistent atrial fibrillation Hypertension controlled Continue Xarelto Continue losartan Continue amiodarone Cardioversion on Sunday Subjective Date/time seen: 05/04/24 12:36 Interval history: no acute events Review of Systems Review of Systems: All systems reviewed & are unremarkable except as noted in HPI and below Exam Const: General: comfortable and no acute distress Other: Able to lie flat HENMT: Face/Nose/Sinus: Normal nares present and no epistaxis Mouth: Yes moist mucous membranes Eyes: Sclera: sclerae normal Pupils: Equal, round and reactive pupils present Neck: Neck: supple and no JVD Carotids: no bruits Resp: Auscultation: clear to auscultation bilaterally and lung sounds not diminished Other: No chest wall tenderness Cardio: Rate: regular rate Rhythm: abnormal rhythm irregularly irregular Heart sounds: no gallops, no murmurs and no rubs GI: GI Palp: Yes Soft to palpation and No Tenderness to palpation present (GI) Auscultation: normal bowel sounds Skin: General skin exam: normal color, rashes and/or lesions noted and no erythema Other: Warm Neuro: Cranial nerves: Yes Equal, round and reactive pupils present Speech: normal speech Other: No obvious focal deficit or facial asymmetry Extrem: General: no edema Other: Normal capillary refills Intact distal pulses. Objective Data Vital Signs Vital Signs: Vital Signs - 24 hr 05/03/24 15:35 05/03/24 14:00 05/03/24 16:00 Temperature 36.2 C L Pulse Rate 71 106 H 83 Pulse Rate [Monitor] Respiratory Rate 20 Blood Pressure 103/89 Pulse Oximetry 99 Oxygen Delivery 05/03/24 16:00 05/03/24 18:00 05/03/24 19:57 Temperature 36.7 C Pulse Rate 74 72 Pulse Rate [Monitor] Respiratory Rate 16 Blood Pressure 100/61 Pulse Oximetry 98 Oxygen Delivery Room Air 05/03/24 22:22 05/04/24 00:00 05/03/24 20:00 Temperature 36.8 C Pulse Rate 89 82 Pulse Rate [Monitor] 72 Respiratory Rate 16 Blood Pressure 126/60 100/61 Pulse Oximetry 100 Oxygen Delivery 05/03/24 20:00 05/04/24 00:00 05/04/24 00:00 Temperature Pulse Rate 72 82 Pulse Rate [Monitor] 82 Respiratory Rate 16 16 Blood Pressure 126/60 Pulse Oximetry 98 100 Oxygen Delivery Room Air Room Air 05/03/24 20:00 05/03/24 22:00 05/04/24 00:00 Temperature Pulse Rate 65 74 88 Pulse Rate [Monitor] Respiratory Rate Blood Pressure Pulse Oximetry Oxygen Delivery 05/04/24 03:54 05/04/24 04:00 05/04/24 04:00 Temperature 36.7 C Pulse Rate 80 80 Pulse Rate [Monitor] 80 Respiratory Rate 16 16 Blood Pressure 102/60 102/60 Pulse Oximetry 96 96 Oxygen Delivery Room Air 05/04/24 02:00 05/04/24 04:00 05/04/24 06:00 Temperature Pulse Rate 70 90 60 Pulse Rate [Monitor] Respiratory Rate Blood Pressure Pulse Oximetry Oxygen Delivery 05/04/24 07:40 05/04/24 09:13 05/04/24 08:00 Temperature 36.4 C L Pulse Rate 89 89 84 Pulse Rate [Monitor] Respiratory Rate 18 Blood Pressure 116/68 Pulse Oximetry 97 Oxygen Delivery 05/04/24 10:00 05/04/24 12:00 05/04/24 12:00 Temperature 36.4 C Pulse Rate 73 70 78 Pulse Rate [Monitor] Respiratory Rate 18 Blood Pressure 104/47 L Pulse Oximetry 99 Oxygen Delivery Intake/Output Intake/Output: Intake & Output 05/01/24 05/02/24 05/03/24 05/04/24 23:59 23:59 23:59 23:59 Intake Total 1515 1880 240 Output Total 501 1690 670 Balance 1014 190 -430 Meds/Results Medications: Active Medications Generic Name Dose Route Start Last Admin Trade Name Freq PRN Reason Stop Dose Admin
[2024-05-05] VITALS (17 sets, daily range): BP systolic 101–145; BP diastolic 55–93; PULSE 48–81; RESP 14–22; TEMP 36.1–36.8; O2SAT 97–100
[2024-05-05] MEDS: ASPIRIN 81 MG ENTERIC TABLET PO (08:23)
[2024-05-05] MEDS: RIVAROXABAN 20 MG TABLET PO (08:23)
[2024-05-05] MEDS: AMIODARONE HCL 200 MG TABLET 400 MG PO (08:23)
--- NOTE | 2024-05-05 09:26 | PC.NURSE ---
Pt to mobile home laborer for Cardioversion via Stretcher.
--- NOTE | 2024-05-05 09:41 | WPDMODSED ---
Moderate Sedation Note-Pt Data Patient Data Diagnosis: Recurrent, symptomatic atrial fibrillation Present Complaint: ABDULLAHI Procedure to be performed/Plan: DC cardioversion Allergies Allergy/AdvReac Type Severity Reaction Status Date / Time amlodipine Allergy Intermediate Swelling Verified 02/27/24 09:56 Home Medications Medication Instructions Recorded Confirmed Type folic acid 1 mg PO DAILY 02/25/21 05/02/24 History losartan 100 mg tablet 100 mg PO DAILY 02/25/21 05/02/24 History multivitamin 1 tablet PO DAILY 02/25/21 05/02/24 History rivaroxaban 20 mg tablet (Xarelto) 20 mg PO DAILY 02/25/21 05/02/24 History thiamine HCl (vitamin B1) 100 mg 100 mg PO DAILY 02/25/21 05/02/24 History tablet amiodarone 200 mg tablet 200 mg PO DAILY 30 days #30 tabs 02/28/21 05/02/24 Rx levothyroxine 50 mcg tablet 50 mcg PO DAILY #90 tabs 08/23/23 05/02/24 Rx hydrochlorothiazide 25 mg tablet 12.5 mg PO DAILY 90 days #45 tabs 11/16/23 05/02/24 Rx cholecalciferol (vitamin D3) 125 125 mcg PO DAILY 02/27/24 05/02/24 History mcg (5,000 unit) capsule omeprazole 20 mg capsule,delayed 20 mg PO QAM 05/02/24 05/02/24 History release Current Medications: Active Medications Acetaminophen (Acetaminophen 325 Mg Tablet) 650 mg PO Q6H PRN PRN Reason: Mild Pain (1-3) or Fever Last Admin: 05/04/24 21:39 Dose: 650 mg Amiodarone HCl (Amiodarone Hcl 200 Mg Tablet) 400 mg PO Q12HR [facility] Last Admin: 05/05/24 08:23 Dose: 400 mg Aspirin (Aspirin 81 Mg Enteric Tablet) 81 mg PO QAM [facility] Last Admin: 05/05/24 08:23 Dose: 81 mg Chlordiazepoxide HCl (Chlordiazepoxide (*Crx) 25 Mg Capsule) 50 mg PO Q6HR PRN PRN Reason: Withdrawal Folic Acid (Folic Acid 1 Mg Tablet) [facility] [place] Admin: 05/04/24 09:13 Dose: 1 mg Levothyroxine Sodium (Levothyroxine Sodium 50 Mcg Tablet) 50 mcg PO DAILY@0630 [facility] Last Admin: 05/05/24 08:22 Dose: Not Given Lorazepam (Lorazepam Inj (*Crx) 2 Mg/Ml Vial) 2 mg IV PUSH Q4H PRN PRN Reason: CIWA 8-15 Multivitamins Therapeutic (Multivitamins Therapeutic Tab (*Bkc)) 1 tablet PO DAILY [facility] Last Admin: 05/04/24 09:13 Dose: 1 tablet Ondansetron HCl (Ondansetron Inj 4 Mg/2 Ml Vial) 4 mg IV PUSH Q6H PRN PRN Reason: Nausea And Vomiting Pantoprazole Sodium (Pantoprazole 40 Mg Tablet) 40 mg PO QAM [facility] Last Admin: 05/04/24 09:13 Dose: 40 mg Rivaroxaban (Rivaroxaban 20 Mg Tablet) 20 mg PO DAILY [facility] Last Admin: 05/05/24 08:23 Dose: 20 mg Thiamine HCl (Thiamine Hcl 100 Mg Tablet) 100 mg PO DAILY [facility] Last Admin: 05/04/24 09:13 Dose: 100 mg Vitamin D (Cholecalciferol 1,000 Units Tablet) 5,000 units PO DAILY [facility] Last Admin: 05/04/24 09:13 Dose: 5,000 units Sedation/Anesthesia: No previous sedation/anesthesia problems (including family history). [facility] Past Medical History Medical History (Updated 05/02/24 @ 05:15 by Hans Ortiz MD) Atrial fibrillation Chronic alcohol abuse Depression DVT (deep venous thrombosis) Family hx of colon cancer GERD (gastroesophageal reflux disease) Hypertension Macrocytic anemia CHEO (obstructive sleep apnea) Pulmonary embolism Surgical History Surgical History History of cholecystectomy History of total knee arthroplasty Family History Family History Mother Cancer Social History Social History Smoking status: Never smoker Second hand tobacco smoke exposure: No Alcohol intake: current Alcohol use details: daily, wine Substance use: never Substance use type: does not use Other substance usage details: on occasion Do You Feel Safe in your Home?: Yes Lack of Transportation: No Lack of Food: Never True Current Housing: I Have Housing Concerned About Future Housing: No Difficulty Paying Gas/Electric Bills: No Difficulty Paying for Meds: No
--- NOTE | 2024-05-05 09:50 | P.PCNCC_ITS ---
Cardiac Cath Procedure Note Date of procedure:: 05/05/24 Performing physician:: Magnus Delong MD Indication:: Recurrent, symptomatic atrial fib Brief clinical history:: This is a 78-year-old man with a history of paroxysmal atrial fib previously in the setting of pulmonary embolism. He has been maintained on low modest dose of amiodarone as well as anticoagulation. He entered the hospital last week with symptoms of exertional fatigue and was found to be back in atrial fib with a well-controlled ventricular response. Amiodarone was increased to an oral loading dosage of 800 mg daily. AFib persistent in attempt at restoring sinus rhythm electrically again has been scheduled for this morning. Procedure Procedure performed:: DC cardioversion Sedation/Medication given:: Intravenous propofol in aliquots total dosage of 70 mg Estimated blood loss:: 0 Procedure note:: Patient was brought to the cardiac catheterization lab holding area in the postabsorptive state. Defibrillator patches were placed in the AP position. He was connected to telemetry with intravenous access in the right upper extremity. Following this he was sedated with propofol in aliquots with a total dosage of 70 mg which provided very good sedation. He was DC cardioverted with 200 joules in synchronized fashion which restored sinus bradycardia with heart rate of 54. Findings:: As above Conclusion:: Successful uncomplicated DC cardioversion of atrial fibrillation restoring sinus bradycardia using 200 joules x1 shock Magnus Delong MD [facility]
--- NOTE | 2024-05-05 10:00 | ECG_ITS ---
Test Date: 2024-05-05 09:35:09 Measurements Intervals [place] Rate: 65 P: 0 SC: 0 QRS: -69 QRSD: 156 T: -8 QT: 464 QTc: 485 Interpretive Statements ATRIAL FIBRILLATION RIGHT BUNDLE BRANCH BLOCK [120+ ms QRS DURATION, UPRIGHT V1, 40+ ms S IN I/aVL/V4/V5/V6] LEFT ANTERIOR FASCICULAR BLOCK [QRS AXIS <= -45, QR IN I, RS IN II] ABNORMAL ECG Compared to ECG 05/02/2024 09:39:35 Myocardial infarct finding no longer present Electronically Signed On 05-05-2024 15:21:39 CDT by Magnus Delong M.D.
--- NOTE | 2024-05-05 10:30 | ECG_ITS ---
Test Date: 2024-05-05 09:52:03 Measurements Intervals [place] Rate: 54 P: 55 NC: 262 QRS: -53 QRSD: 170 T: -11 QT: 511 QTc: 486 Interpretive Statements SINUS BRADYCARDIA WITH FIRST DEGREE AV BLOCK WITH OCCASIONAL VENTRICULAR PREMATURE COMPLEXES RIGHT BUNDLE BRANCH BLOCK [120+ ms QRS DURATION, UPRIGHT V1, 40+ ms S IN I/aVL/V4/V5/V6] LEFT ANTERIOR FASCICULAR BLOCK [QRS AXIS <= -45, QR IN I, RS IN II] Compared to ECG 05/05/2024 09:35:09 Atrial fibrillation no longer present Electronically Signed On 05-06-2024 11:40:46 CDT by Kamla Llanes M.D.
--- NOTE | 2024-05-05 10:42 | PC.NURSE ---
Pt returned from clinical laboratory manager via stretcher. No issues noted. Report received from HEIDI Carrillo @ [phone]
[2024-05-05] MEDS: PANTOPRAZOLE 40 MG TABLET PO (11:08)
[2024-05-05] MEDS: MULTIVITAMINS THERAPEUTIC TAB (*BKC) 1 TABLET PO (11:08)
[2024-05-05] MEDS: FOLIC ACID 1 MG TABLET PO (11:08)
[2024-05-05] MEDS: THIAMINE HCL 100 MG TABLET PO (11:08)
[2024-05-05] MEDS: CHOLECALCIFEROL 1,000 UNITS TABLET 5000 UNITS PO (11:08)
--- NOTE | 2024-05-05 14:34 | PM.IMPN ---
Progress Note: A&P Assessment and Plan (1) Chest pain: Code(s): R07.9 - Chest pain, unspecified Status: Acute (2) Exertional dyspnea: Code(s): R06.09 - Other forms of dyspnea Status: Acute (3) GERD (gastroesophageal reflux disease): Code(s): K21.9 - Gastro-esophageal reflux disease without esophagitis Status: Acute (4) Macrocytic anemia: Code(s): D53.9 - Nutritional anemia, unspecified Status: Acute (5) Hypertension: Qualifiers: Hypertension type: primary hypertension Qualified Code(s): I10 - Essential (primary) hypertension Code(s): I10 - Essential (primary) hypertension Status: Acute (6) Atrial fibrillation: Qualifiers: Atrial fibrillation type: paroxysmal Qualified Code(s): I48.0 - Paroxysmal atrial fibrillation Code(s): I48.91 - Unspecified atrial fibrillation Status: Acute (7) CHEO (obstructive sleep apnea): Code(s): G47.33 - Obstructive sleep apnea (adult) (pediatric) Status: Acute (8) Chronic alcohol abuse: Code(s): F10.10 - Alcohol abuse, uncomplicated Status: Acute Plan This is a 78-year-old male who presents to the ED with generalized weakness over the past 3 weeks and exertional shortness of breath intermittent chest pressure. No nausea vomiting abdominal pain. No fever chills. On ED evaluation vitals were stable EKG showed atrial fibrillation of 83 beats per minute no ST-T changes suggestive of acute ischemia. BNP elevated at 3550. Alcohol level noted at 164. Chest x-ray with no acute process. WBC normal hemoglobin 11.8 creatinine of 1.2 INR 2.4 patient on Xarelto. LFTs were normal. Troponin came back negative lipase was normal. Echo ordered and cardiology has been consulted. Serial troponin remains negative. Next step to further evaluate his existing dyspnea with echocardiogram will be obtained. Cardiology has been consulted . Echo reviewed and unremarkable. Most likely etiology atrial fibrillation. Amiodarone loading was started. Patient remain on atrial fibrillation and hence cardioversion was performed 05/05/2024 and back to sinus rhythm. Will continue to monitor on telemetry. ? Claudication This came back normal NSVT Mag is 1.6 replace and monitor Atrial fibrillation chronic rate control anticoagulated History of PE and DVT Hypertension Hypothyroidism Alcohol dependence CHEO Depression DVT prophylaxis on Xarelto Subjective Date/time seen: 05/05/24 14:34 Interval history: underwent cardioversion and feels great. Remains in sinus rhythm. On amiodarone. Review of Systems Review of Systems: All systems reviewed & are unremarkable except as noted in HPI and below Exam Narrative: HEENT: PERRL, sclerae nonicteric, pharyngeal mucosa pink and intact NECK: No JVD CHEST: Clear to auscultation. Normal effort. HEART: NL S1/S2, Mildly bradycardic sinus rhythm on tele no murmur. ABDOMEN: BS+, soft, nontender, no mass, no bruits EXTREMITIES: No cyanosis, edema, or clubbing NEUROLOGIC: CN intact and symmetric to inspection. MUSCULOSKELETAL: Tone and strength symmetric. PSYCH: Alert. Oriented to person, place, and time. Objective Data Vital Signs Vital Signs: Vital Signs - 24 hr 05/04/24 16:00 05/04/24 16:00 05/04/24 18:00 Temperature 98.2 F Pulse Rate 112 H 63 64 Pulse Rate [Monitor] Respiratory Rate 18 Blood Pressure 108/67 Pulse Oximetry 100 Oxygen Delivery Oxygen Flow Rate 05/04/24 16:00 05/04/24 19:32 05/04/24 20:00 Temperature 97.2 F L Pulse Rate 77 Pulse Rate [Monitor] 91 Respiratory Rate 16 Blood Pressure 114/67 114/67 Pulse Oximetry 99 Oxygen Delivery Room Air Oxygen Flow Rate 05/04/24 20:00 05/04/24 21:38 05/04/24 20:00 Temperature Pulse Rate 64 67 58 L Pulse Rate [Monitor] Respiratory Rate 16 Blood Pressure Pulse Oximetry 99 Oxygen Delivery Room Air Oxygen Flow
--- NOTE | 2024-05-05 15:53 | PM.DS ---
DS: Admitting Diagnosis Discharge Date 05/05/2024 Admitting Diagnosis shortness of breath DS: Discharge Diagnosis Discharge Diagnosis (1) Chest pain: Code(s): R07.9 - Chest pain, unspecified Status: Acute (2) Exertional dyspnea: Code(s): R06.09 - Other forms of dyspnea Status: Acute (3) GERD (gastroesophageal reflux disease): Code(s): K21.9 - Gastro-esophageal reflux disease without esophagitis Status: Acute (4) Macrocytic anemia: Code(s): D53.9 - Nutritional anemia, unspecified Status: Acute (5) Hypertension: Qualifiers: Hypertension type: primary hypertension Qualified Code(s): I10 - Essential (primary) hypertension Code(s): I10 - Essential (primary) hypertension Status: Acute (6) Atrial fibrillation: Qualifiers: Atrial fibrillation type: paroxysmal Qualified Code(s): I48.0 - Paroxysmal atrial fibrillation Code(s): I48.91 - Unspecified atrial fibrillation Status: Acute (7) CHEO (obstructive sleep apnea): Code(s): G47.33 - Obstructive sleep apnea (adult) (pediatric) Status: Acute (8) Chronic alcohol abuse: Code(s): F10.10 - Alcohol abuse, uncomplicated Status: Acute DS: Summary Hospital Course Hospital Course: This is a 78-year-old male who presents to the ED with generalized weakness over the past 3 weeks and exertional shortness of breath intermittent chest pressure. No nausea vomiting abdominal pain. No fever chills. On ED evaluation vitals were stable EKG showed atrial fibrillation of 83 beats per minute no ST-T changes suggestive of acute ischemia. BNP elevated at 3550. Alcohol level noted at 164. Chest x-ray with no acute process. WBC normal hemoglobin 11.8 creatinine of 1.2 INR 2.4 patient on Xarelto. LFTs were normal. Troponin came back negative lipase was normal. Echo ordered and cardiology has been consulted. Serial troponin remains negative. Next step to further evaluate his existing dyspnea with echocardiogram will be obtained. Cardiology has been consulted . Echo reviewed and unremarkable. Most likely etiology atrial fibrillation. Amiodarone loading was started. Patient remain on atrial fibrillation and hence cardioversion was performed 05/05/2024 and back to sinus rhythm. Will continue to monitor on telemetry. remains sinus rhythm amiodarone will be increased to 400 mg daily for discharge .okay per Cardiology to discharge ? Claudication This came back normal NSVT Mag is 1.6 replace and monitor Atrial fibrillation chronic rate control anticoagulated History of PE and DVT Hypertension Hypothyroidism Alcohol dependence CHEO Depression DVT prophylaxis on Xarelto Time Spent with Patient Time attestation: Total time spent providing and/or coordinating discharge services: 32 minutes Exam Narrative: HEENT: PERRL, sclerae nonicteric, pharyngeal mucosa pink and intact NECK: No JVD CHEST: Clear to auscultation. Normal effort. HEART: NL S1/S2, Mildly bradycardic sinus rhythm on tele no murmur. ABDOMEN: BS+, soft, nontender, no mass, no bruits EXTREMITIES: No cyanosis, edema, or clubbing NEUROLOGIC: CN intact and symmetric to inspection. MUSCULOSKELETAL: Tone and strength symmetric. PSYCH: Alert. Oriented to person, place, and time. DS: Data Procedures/Treatments: Cardiac Cath Procedure Note Date of procedure:: 05/05/24 Performing physician:: Magnus Delong MD Indication:: Recurrent, symptomatic atrial fib Brief clinical history:: This is a 78-year-old man with a history of paroxysmal atrial fib previously in the setting of pulmonary embolism. He has been maintained on low modest dose of amiodarone as well as anticoagulation. He entered the hospital last week with symptoms of exertional fatigue and was found to be back in atrial fib with a well-controlled ventricular response. Amiodarone was increased to an oral loading dosage of 800 mg kalin
== END 2024-05-05 16:54 | disposition home or self-care (01) | DRG 310 ==
LOC: ANHED 03:22 → ANHIMU 04:03
PROVIDERS: Internal Medicine; Specialist; Admitting Provider Internal Medicine; Emergency Provider Emergency Medicine; PCP Internal Medicine; Visit Provider Internal Medicine
PROC: 5A2204Z Restoration of Cardiac Rhythm, Single (ICD-10-PCS; principal; 2024-05-05 10:00)
DX: I48.0 Paroxysmal atrial fibrillation (principal); I10 Essential (primary) hypertension; I47.29 Other ventricular tachycardia; E03.9 Hypothyroidism, unspecified; K21.9 Gastro-esophageal reflux disease without esophagitis; D53.9 Nutritional anemia, unspecified; M79.605 Pain in left leg; M79.604 Pain in right leg; G47.33 Obstructive sleep apnea (adult) (pediatric); F10.10 Alcohol abuse, uncomplicated; F32.A Depression, unspecified; Z96.659 Presence of unspecified artificial knee joint; Z80.0 Family history of malignant neoplasm of digestive organs; Z79.01 Long term (current) use of anticoagulants; Z86.711 Personal history of pulmonary embolism; Z86.718 Personal history of other venous thrombosis and embolism
CPT/HCPCS: 36415; 71045; 80048; 80053; 80307; 81001; 82550; 82948; 83605; 83690; 83735; 83880; 84439; 84443; 84484; 85025; 85027; 85610; 85730; 92960; 93005; 93922; 99285; A9270; C8929; J2704; J3475; J7030; J7040; Q9957

== ENCOUNTER 2024-07-23 10:52 | Outpatient (CLI) | payer MEDICARE, SELFPAY ==
[2024-07-23 11:16] LABS: Eosinophils Absolute Auto 0.1 K/mm3 (0-0.3); Eosinophils Percent Auto 2.3 % (0-4.4); Hematocrit 34.2 % (42.0-52.0); Hemoglobin 11.6 g/dL (14.0-18.0); Immature Granulocyte Absolute 0.01 K/mm3 (0.00-0.031); Immature Granulocyte Percent A 0.3 % (0-0.5); Lymphocytes Absolute Auto 0.83 K/mm3 (0.9-3.2); Mean Corpuscular HGB Conc 33.9 g/dl (32-36); Mean Corpuscular Hemoglobin 36.8 pg (26-34); Mean Corpuscular Volume 108.6 fl (80-100); Mean Platelet Volume 8.8 fl (7.4-10.4); Monocytes Absolute Auto 0.5 K/mm3 (0.1-0.6); Monocytes Percent Auto 12.1 % (2.6-8.5); Neutrophils Absolute Auto 2.5 K/mm3 (1.3-6.7); Neutrophils Percent Auto 63.3 % (45.5-73.1); Platelet Count Result 164 k/mm3 (150-375); Red Blood Count 3.15 M/mm3 (4.6-6.20); Red Cell Distribution Width 13.3 % (11.5-14.5)
[2024-07-23 13:28] LABS: Anion Gap 9 mmol/L (4-12); Blood Urea Nitrogen 14 mg/dL (9-20); Calcium 8.7 mg/dL (8.4-10.2); Carbon Dioxide 28 mmol/L (22-30); Chloride 96 mmol/L (98-107); Estimated Glomerular Filt Rate 59; Glucose 89 mg/dL (65-110); Sodium 133 mmol/L (137-145)
[2024-07-23 13:30] LABS: Iron 108 ug/dL (49-181)
[2024-07-23 13:40] LABS: Percent Iron Saturation 65 % (20-50)
[2024-07-23 14:34] LABS: Folic Acid > 20.0 ng/mL (2.76->20)
== END 2024-07-23 10:53 | disposition home or self-care (01) ==
LOC: ANHLAB 10:57
PROVIDERS: PCP Internal Medicine; Visit Provider Internal Medicine Hematology & Oncology
DX: E83.19 Other disorders of iron metabolism (principal)
CPT/HCPCS: 36415; 80048; 81256; 82607; 82728; 82746; 83540; 83550; 85025

== ENCOUNTER 2024-08-11 11:46 | Outpatient (CLI) | payer MEDICARE, SELFPAY | END 2024-08-11 11:47 | disposition home or self-care (01) | LOC: ANHLAB 11:49 | PROVIDERS: PCP Internal Medicine; Visit Provider Internal Medicine Hematology & Oncology | DX: R53.83 Other fatigue (principal); I10 Essential (primary) hypertension; D64.9 Anemia, unspecified | CPT/HCPCS: 36415; 84443 ==

== ENCOUNTER 2024-08-28 10:26 | Outpatient (CLI) | payer MEDICARE, SELFPAY ==
[2024-09-03 16:53] LABS: Testosterone Free 10.5 pg/mL (30.0-135.0); Testosterone Total 211 ng/dL (250-1100)
== END 2024-08-28 10:27 | disposition home or self-care (01) ==
LOC: ANHLAB 10:28
PROVIDERS: PCP Internal Medicine; Visit Provider Internal Medicine Hematology & Oncology
DX: D64.9 Anemia, unspecified (principal); R53.83 Other fatigue
CPT/HCPCS: 36415; 84402; 84403

== ENCOUNTER 2024-09-26 08:56 | Outpatient (CLI) | payer MEDICARE, SELFPAY ==
[2024-09-26 15:43] LABS: Alanine Aminotransferase 23 U/L (6-50); Albumin Level 3.8 g/dL (3.5-5.1); Alkaline Phosphatase 130 U/L (38-126); Anion Gap 7 mmol/L (4-12); Aspartate Amino Transferase 52 U/L (17-59); Bilirubin,Total 0.8 mg/dL (0.2-1.3); Blood Urea Nitrogen 20 mg/dL (9-20); Calcium 9.3 mg/dL (8.4-10.2); Carbon Dioxide 29 mmol/L (22-30); Chloride 101 mmol/L (98-107); Estimated Glomerular Filt Rate 45; Glucose 98 mg/dL (65-110); Potassium 4.2 mmol/L (3.4-5.0); Sodium 137 mmol/L (137-145)
[2024-09-26 16:12] LABS: Prostate Specific Antigen 1.1 ng/mL (< OR = 4.0)
[2024-09-27 11:48] LABS: FSH 91.4 mIU/mL (1.4-12.8)
[2024-10-03 09:13] LABS: Testosterone Free 9.8 pg/mL (30.0-135.0); Testosterone Total 197 ng/dL (250-1100)
== END 2024-09-26 08:57 | disposition home or self-care (01) ==
PROVIDERS: PCP Internal Medicine; Visit Provider Nurse Practitioner
DX: E29.1 Testicular hypofunction (principal); Z12.5 Encounter for screening for malignant neoplasm of prostate
CPT/HCPCS: 36415; 80053; 82670; 83001; 83002; 84153; 84402; 84403; G0103

== ENCOUNTER 2024-10-13 11:19 | Outpatient (CLI) | payer MEDICARE, SELFPAY ==
--- NOTE | ~2024-10-13 | CT_ITS ---
EXAMINATION: CT brain wo con DATE: 10/13/2024 11:48 INDICATION: Pituitary tumor. TECHNIQUE: Computed tomography (CT) of the head was performed without intravenous contrast. The mA wa s adjusted according to patient size. Iterative reconstruction technique was employed. The dose-lengt h product was 605.33 mGy-cm. COMPARISON: None FINDINGS: There are scattered areas of low attenuation in the cerebral white matter, which is within normal limits for the patient's age. The pituitary is normal in size with height of 3 mm. There is no intracranial hemorrhage, acute infarction, or abnormal intracranial mass lesion. The ventricles are normal in size. The paranasal sinuses are clear. The mastoid air cells are normal. IMPRESSION: 1. Normal aging brain. Reviewed, dictated and finalized at location A. IGURATION MANAGER IMPRESSION: 1. Normal aging brain.
== END 2024-10-13 11:20 | disposition home or self-care (01) ==
PROVIDERS: PCP Internal Medicine; Visit Provider Nurse Practitioner
DX: E29.1 Testicular hypofunction (principal)
CPT/HCPCS: 70450

== ENCOUNTER 2024-11-17 09:46 | Outpatient (CLI) | payer MEDICARE, SELFPAY ==
--- NOTE | 2024-11-19 22:19 | WPDPFTINT ---
PFT Procedure Performed PFT Procedure Performed Plethysmography (Lung Vol) Diffusing Cap (DLCO) Flow Vol Loop Spirometry w/o Bronchodil PFT Interpretation DOS: 11/17/2024 REQUESTING: Magnus Delong MD REASON FOR TESTING: Dyspnea PULMONARY FUNCTION TESTS Results are reliable and reproducible. Repeatability of spirometry FEV1 maneuver is Grade A. Spirometry: The FEV1 is 3.19 L, 118%, normal. The FVC is 4.37 L, 122%, normal. The FEV1/FVC ratio is 73%, normal. Lung volumes: The total lung capacity is 7.73 L, 120%, normal. The residual volume is 3.01 L, 124%, normal. The RV/TLC is 39%, normal. Airway resistance is increased. Diffusion: DLCO is 18.3, 79%, normal. The DLCO/VA is 2.76, 71%, normal. Flow volume loop: The flow volume loop is normal. IMPRESSION: This study shows normal spirometry, normal lung volumes, normal diffusion. No prior studies to compare. Terese Carmona MD
== END 2024-11-17 09:47 | disposition home or self-care (01) ==
PROVIDERS: PCP Internal Medicine; Visit Provider Specialist
DX: R06.00 Dyspnea, unspecified (principal)
CPT/HCPCS: 94375; 94726; 94729

== ENCOUNTER 2024-12-10 14:11 | Outpatient (CLI) | payer MEDICARE, SELFPAY ==
[2024-12-10 14:31] LABS: Hematocrit 34.5 % (42.0-52.0); Hemoglobin 11.2 g/dL (14.0-18.0); Mean Corpuscular HGB Conc 32.5 g/dl (32-36); Mean Corpuscular Volume 110.9 fl (80-100); Mean Platelet Volume 9.6 fl (7.4-10.4); Platelet Count Result 219 k/mm3 (150-375); Red Blood Count 3.11 M/mm3 (4.6-6.20); Red Cell Distribution Width 14.5 % (11.5-14.5); White Blood Count 6.9 K/mm3 (4.5-10.0)
[2024-12-10 16:47] LABS: Iron 94 ug/dL (49-181)
[2024-12-10 16:51] LABS: Alanine Aminotransferase 31 U/L (6-50); Albumin Level 3.4 g/dL (3.5-5.1); Alkaline Phosphatase 162 U/L (38-126); Anion Gap 9 mmol/L (4-12); Aspartate Amino Transferase 49 U/L (17-59); Bilirubin,Total 0.9 mg/dL (0.2-1.3); Blood Urea Nitrogen 34 mg/dL (9-20); Calcium 8.6 mg/dL (8.4-10.2); Carbon Dioxide 26 mmol/L (22-30); Chloride 105 mmol/L (98-107); Estimated Glomerular Filt Rate 32; Glucose 98 mg/dL (65-110); Potassium 4.3 mmol/L (3.4-5.0); Sodium 140 mmol/L (137-145)
[2024-12-10 16:57] LABS: Percent Iron Saturation 67 % (20-50)
[2024-12-16 20:52] LABS: Testosterone Free 199.6 pg/mL (30.0-135.0); Testosterone Total 1855 ng/dL (250-1100)
== END 2024-12-10 14:12 | disposition home or self-care (01) ==
LOC: ANHLAB 14:12
PROVIDERS: Visit Provider Internal Medicine Hematology & Oncology
DX: D64.9 Anemia, unspecified (principal)
CPT/HCPCS: 36415; 80053; 82728; 83540; 83550; 84402; 84403; 84443; 85027

== ENCOUNTER 2025-01-05 01:13 | Day surgery (SDC) | payer MEDICARE, SELFPAY ==
[2024-12-26 10:08] VITALS: BMI 28.2
--- NOTE | 2024-12-29 13:45 | PC.NURSE ---
Spoke with patient regarding medication xarelto. _Patient verbalizes understanding that the last dose is to be taken on 01/01/25 and the Endoscopist will instruct them when to restart after the procedure.
--- OUTSIDE RECORDS SUMMARY | 2025-01-05 01:16 | XMS_ITS | Continuity of Care Document ---
Author Name Auto Generated, Auto Generated Organization [facility] Support Name Relationship Address Phone Tamia Contreras Emergency Contact [address] [place] [address] Murphy Contreras Self [address] [place] [address] Murphy Contreras Financial Responsible [employer] [address] [place] [address] Summary Purpose Consult/Referral Allergies, Adverse Reactions, Alerts No Known Allergies Medications No Known Medications Conditions/Problems Problem/Diagnosis Awareness of Diagnosis Code (ICD-10) Onset Date (Start Date) Resolution Date (End Date) Status Source Comments 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 12/28/19 17 Active MD Adam Freire HYPERTENSIVE HEART AND CHRONIC KIDNEY DISEASE WITH HEART FAILURE AND STAGE 1 THROUGH STAGE 4 CHRONIC KIDNEY DISEASE, OR UNSPECIFIED CHRONIC KIDNEY DISEASE I13.0 12/28/19 17 Active MD Adam Freire CHRONIC KIDNEY DISEASE, STAGE 2 (MILD) N18.2 12/28/19 17 Active MD Adam Freire IRON DEFICIENCY ANEMIA, UNSPECIFIED D50.9 12/28/19 17 Active MD Adam Freire GASTRO-ESOPHAGEAL REFLUX DISEASE WITHOUT ESOPHAGITIS K21.9 12/28/19 17 Active MD Adam Freire OTHER SPECIFIED ABNORMAL FINDINGS OF BLOOD CHEMISTRY R79.89 12/28/19 17 Active MD Adam Freire PERSONAL HISTORY OF PULMONARY EMBOLISM Z86.711 12/28/19 17 Active MD Adam Freire HYPOTHYROIDISM, UNSPECIFIED E03.9 12/28/19 17 Active MD Adam Freire GOUT, UNSPECIFIED M10.9 12/28/19 17 Active MD Adam Freire DERMATITIS, UNSPECIFIED L30.9 12/28/19 17 Active MD Adam Freire ALLERGIC CONTACT DERMATITIS, UNSPECIFIED CAUSE L23.9 02 17 MD Adam Murray URINARY TRACT INFECTION, SITE NOT SPECIFIED N39.0 01/07/20 16 MD Adam Murray ENCOUNTER FOR SURGICAL AFTERCARE FOLLOWING SURGERY ON THE DIGESTIVE SYSTEM Z48.815 12/25/19 16 MD Adam Murray ACQUIRED ABSENCE OF OTHER SPECIFIED PARTS OF DIGESTIVE TRACT Z90.49 12/25/19 16 MD Adam Murray POSTPROCEDURAL HEMORRHAGE OF A DIGESTIVE SYSTEM ORGAN OR STRUCTURE FOLLOWING OTHER PROCEDURE K91.841 12/25/19 16 MD Adam Murray PRESENCE OF OTHER SPECIFIED DEVICES Z97.8 12/25/19 16 MD Adam Murray ACUTE EMBOLISM AND THROMBOSIS OF UNSPECIFIED DEEP VEINS OF LEFT LOWER EXTREMITY I82.402 12/25/19 16 MD Adam Murray PRESENCE OF OTHER VASCULAR IMPLANTS AND GRAFTS Z95.828 12/25/19 16 MD Adam Murray AFTERCARE FOLLOWING JOINT REPLACEMENT SURGERY Z47.1 12/25/19 16 MD Adam Murray PRESENCE OF LEFT ARTIFICIAL KNEE JOINT Z96.652 12/25/19 16 MD Adam Murray UNSPECIFIED OSTEOARTHRITIS, UNSPECIFIED SITE M19.90 12/25/19 16 MD Adam Murray UNSPECIFIED ATRIAL FIBRILLATION I48.91 12/25/19 16 MD Adam Murray ANEMIA, UNSPECIFIED D64.9 12/25/19 16 MD Adam Murray ESSENTIAL (PRIMARY) HYPERTENSION I10 12/25/19 16 MD Adam Murray PRESSURE ULCER OF UNSPECIFIED BUTTOCK, UNSPECIFIED STAGE L89.309 12/25/19 16 MD Adam Murray UNSPECIFIED ABNORMALITIES OF GAIT AND MOBILITY R26.9 12/25/19 16 MD Adam Murray MUSCLE WEAKNESS (GENERALIZED) M62.81 12/25/19 16 MD Adam Murray IDIOPATHIC GOUT, UNSPECIFIED SITE M10.00 12/25/19 16 MD Adam Murray ALCOHOL DEPENDENCE, UNCOMPLICATED F10.20 12/25/19 16 MD Adam Murray Procedures No Known Procedures
--- OUTSIDE RECORDS SUMMARY | 2025-01-05 01:16 | XMS_ITS | Referral Summary ---
Author Organization [facility] Address [address] [place] [address] Care Team Providers Care Catering Sales Manager Name Role Phone Wilver Maldonado DO Primary Care Provider [phone]- [phone] Encounters Date Type Department Care Team Description 12/03/2024 Telephone [facility] [address] [phone] Tye Kirby III, MD Scheduling Appointments 12/01/2024 Telephone [facility] [address] [place] [address] [place] [phone] Lou Kent NP 11/28/2024 Telephone [facility] [address] [place] [address] [address] [place] [phone] Lou Kent NP 11/28/2024 11:30 AM PROPERTY INSURANCE INSPECTOR Office Visit [facility] Cardiology [address] [place] [address] [place] [phone] Lou Kent NP Paroxysmal atrial fibrillation (CMS/HCC) (HCC); correction current use of amiodarone; Chronic anticoagulation; Lipid screening 11/06/2024 10:15 AM PROPERTY INSURANCE INSPECTOR Ancillary Procedure [facility] [address] [place] [address] [address] [place] [phone] Dyspnea, unspecified type 10/29/2024 Telephone [facility]iology [address] [place] [address] [address] [place] [phone] Marlee Delong MD 10/28/2024 Telephone [facility] Card[facility] [address] [place] [address] Marlee Delong MD Fatigue; Dizziness from Last 3 Months Allergies Active Allergy Reactions Criticality Noted Date Comments Amlodipine Edema Medium 08/01/2018 Swelling and hypertrophy of gums Medications acetaminophen (TYLENOL) 325 mg tablet 325 mg. 0 0 01/05/20 16 Active Additional Information Patient taking differently:325 mgAs needed, Reported on 11/28/2024 folic acid (FOLVITE) 1 mg tablet Take 1 tablet (1 mg total) by mouth daily Active multivitamin with minerals tablet Take 1 tablet by mouth daily Active sildenafil (VIAGRA) 50 mg tabletIndications: Erectile dysfunction, unspecified erectile dysfunction type Take 1/2 tablet to 1 tablet by mouth daily as needed. 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 Active thiamine (VITAMIN B-1) 100 mg tablet Take 1 tablet (100 mg total) by mouth daily Active hydroCHLOROthiazid e (HYDRODIURIL) 25 mg tablet Take 0.5 tablets (12.5 mg total) by mouth daily 45 tablet 3 11/17/20 20 Active cholecalciferol (VITAMIN D-3) 5,000 unit tablet Take 0.08 tablets (400 Units total) by mouth daily Active losartan (COZAAR) 100 mg tablet TAKE 1 TABLET BY MOUTH EVERY DAY 90 tablet 2 05/30/20 24 Active testosterone cypionate (DEPO-TESTOTERONE) 200 mg/mL injection INJECT 0.7ML INTRAMUSCULARLY EVERY WEEK 11/03/20 24 Active omeprazole (PriLOSEC) 20 mg capsuleIndications :Chronic anticoagulation Take 1 capsule (20 mg total) by mouth daily 90 capsule 3 11/28/19 25 Active rivaroxaban (Xarelto) 20 mg tabletIndications: Chronic anticoagulation Take 1 tablet (20 mg total) by mouth daily 90 tablet 3 11/28/19 25 Active metoprolol XL (TOPROL-XL) 50 mg extended release tabletIndications: Paroxysmal atrial fibrillation (CMS/HCC) (HCC) Take 1 tablet (50 mg total) by mouth daily 30 tablet 11 12/02/19 25 2025 Active Active Problems Problem Noted Date Diagnosed Date Nonrheumatic aortic valve insufficiency 04/20/20 20 Paroxysmal atrial fibrillation (CMS/HCC) 017 DVT (deep venous thrombosis) (CMS/HCC) 7 Essential hypertension 07/20/2017 Pulmonary emboli 07/20/2017 Chronic anticoagulation 07/20/2017 Bradycardia 07/20/2017 Dizziness 07/20/2017 Moderate episode of recurrent major depressive d isorder 11/01/2016 Overview (02/22/2017): Moderate episode of recurrent major depressive disorder Acute cholecystitis 12/16/2015 Overview (02/22/2017): Acute cholecystitis Social History Tobacco Use Types Packs/Day Years Used Date Smoking Tobacco: Never Smokeless Tobacco: Never Tobacco Cessation:Counseling Given: Not Answered Alcohol Use Standard Drinks/Week Comments Yes 0 (1 standard drink = 0.6 oz pur e alcohol) Sex and Gender Information Value Date Recorded Sex Assigned at Not on file Legal Sex Male 8:58 PM PROPERTY INSURANCE INSPECTOR Gender Identity Not on file Sexual Orientation Not on file Last Filed Vital Signs Vital Sign Reading Time Taken Comments Blood Pressure 96/60 11/28/2024 11:22 AM PROPERTY INSURANCE INSPECTOR Pulse 90 11/28/2024 11:22 AM PROPERTY INSURANCE INSPECTOR Temperature - - Respiratory Rate 12 01/20/2021 7:46 AM PROPERTY INSURANCE INSPECTOR Oxygen Saturation 98% 11/28/2024 11:22 AM PROPERTY INSURANCE INSPECTOR Inhaled Oxygen Concentration - - Weight 82.6 kg (182 lb) 11/28/2024 11:22 AM PROPERTY INSURANCE INSPECTOR Height 170.2 cm (5' 7 ) 11/28/2024 11:22 AM PROPERTY INSURANCE INSPECTOR Body Mass Index 28.51 11/28/2024 11:22 AM PROPERTY INSURANCE INSPECTOR Plan of Treatment Not on file Procedures Procedure Name Priority Date/Time Associated Diagnosis Comments ECG 12-LEAD Routine 11/28/2024 11:32 AM PROPERTY INSURANCE INSPECTOR Paroxysmal atrial fibrillation (CMS/HCC) (HCC) POCT LIPID PANEL Routine 11/28/2024 11:3 2 AM PROPERTY INSURANCE INSPECTOR Lipid screening HEMOGLOBIN AND HEMATOCRIT Routine 11/28/2024 Chronic anticoagulation THYROID FUNCTION CASCADE Routine 11/28/2024 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 TRANSTHORACIC ECHO (TTE) COMPLETE W DOPPLER/CF WO CONTRAST Routine 11/06/2024 10:47 AM PROPERTY INSURANCE INSPECTOR Dyspnea, unspecified type from Last 3 Months Results * POCT lipid panel (11/28/2024 11:32 AM PROPERTY INSURANCE INSPECTOR) Cholesterol, POC 159 mg/dL HDL, POC 61 mg/dL Triglycerides, POC 83 mg/dL LDL Cholesterol POC 81 mg/dL Chol/HDL Ratio, POC 1.3 Non-HDL Cholesterol, POC 97 mg/dL Cholesterol Total, POC 159 mg/dL Capillary blood 11/28/2024 1 1:32 AM PROPERTY INSURANCE INSPECTOR Lou Kent NP POINT OF CARE TEST ORDERA BLES Final Result * ECG 12 lead (11/28/2024 11:32 AM PROPERTY INSURANCE INSPECTOR) 11/28/2024 11:3 2 AM PROPERTY INSURANCE INSPECTOR Lou Kent NP ECG ORDERABLES Edited Re sult - Final * Thyroid Function [place] (11/28/2024) Blood 11/28/2024 Lou Kent NP LAB BLOOD ORDERABLES Marisela l Result EXTERNAL LAB * (ABNORMAL) Hemoglobin and hematocrit (11/28/2024) SCRIBED Hemoglobin 12.2(A) 14.0 - 18.0 g/dL EXTERNAL LAB SCRIBED Hematocrit 36.4(A) 42.0 - 52.0 % EXTERNAL LAB Blood 11/28/2024 us Lou Kent NP LAB BLOOD ORDERABLES Marisela garcia Result EXTERNAL LAB * TRANSTHORACIC ECHO (TTE) COMPLETE W DOPPLER/CF WO CONTRAST (11/06/2024 10:47 AM PROPERTY INSURANCE INSPECTOR) Anatomical Region Laterality Modality Ultrasound 11/06/2024 10:4 8 AM PROPERTY INSURANCE INSPECTOR Narrative 11/06/2024 12:28 PM PROPERTY INSURANCE INSPECTOR [facility] Cardiology [address] [facility] [address], [place] [address] [address] [facility] [address], [place] [address] P:[phone] P:[phone] Echocardiographic Report Patient Name: MURPHY ARREAGA G : 1945 Study Date: 11/06/2024 10:48:02 AM Gender: M Tech: KEATON Location: [facility] Provider: MARLEE DELONG Height(Cm): 170 BSA: 2.05 Weight(Kg): 88.9 Heart Rate: 72 BP: 117 / 67 Quality: Good Order Provider: MARLEE DELONG PROCEDURES: Echocardiographic Report: Transthoracic echocardiogram with complete 2D, M-Mode, and color Doppler examination. With Strain Analysis. INDICATIONS: R06.00 Dyspnea, unspecified. MEASUREMENTS: 2D/MM Value Range Doppler Value Range Estimated EF 65-70 % LAMONT Vmax 3.12 cm2 [ 2.00 - 4.00 ] LVIDd 2D 4.30 cm [ 4.20 - 5.80 ] AV Mean PG 4 mmHg LVIDs 2D 2.57 cm [ 2.50 - 4.00 ] AV Peak Ty 1.39 m/s [ 1.00 - 1.70 ] LVPWd 2D 1.32 cm [ 0.60 - 1.00 ] AV Peak PG 8 mmHg IVSd 2D 1.26 cm [ 0.60 - 1.00 ] AV VTI 20.08 cm LA Volume Index 45 cc/m2 [ 16 - 34 ] LVOT Diam 2.53 cm [ 1.70 - 2.10 ] LVOT Peak Ty 0.77 m/s [ 0.70 - 1.10 ] LVOT VTI 13.64 cm MV E Peak Yt 0.67 m/s [ 0.60 - 1.30 ] MV A Peak Ty 0.38 m/s [ 1.00 - 1.20 ] MV Decel Time 146 msec [ 104 - 258 ] Lateral E` 0.14 m/s [ 0.10 - 0.15 ] E` 0.09 m/s E/E` 5 2D/MM Value Range Doppler Value Range - FINDINGS: Interpretation Site: Exam was interpreted at [facility]. Left Ventricle: Normal left ventricular systolic function. No focal wall motion abnormalities. Normal left ventricular size. Moderate concentric left ventricular hypertrophy. Paradoxical septal motion consistent with IVCD or bundle branch block. Indeterminate diastolic function. Ejection Fraction is visually estimated to be 65-70 %. Global Longitudinal Strain is -17 %. GLS is borderline. Right Ventricle: Normal right ventricular size. Normal right ventricular systolic function. Left Atrium: There is moderate enlargement of left atrium. Right Atrium: There is mild enlargement of right atrium. Atrial Septum: Normal atrial septum. Mitral Valve: Normal appearance of the mitral valve. Mild mitral valve regurgitation. There is no hemodynamically significant mitral stenosis by Doppler. Aortic Valve: No evidence of hemodynamically significant aortic stenosis by Doppler. Aortic cusps appear mildly sclerotic. Trileaflet aortic valve. Moderate aortic valve regurgitation. Tricuspid Valve: Normal appearance of the tricuspid valve. Normal right ventricular systolic pressure. Estimated peak RVSP is 25-30 mmHg. Mild tricuspid regurgitation. Pulmonic Valve: Normal appearance of the pulmonic valve. No pulmonic stenosis. Mild pulmonic regurgitation. Pericardium: Normal pericardium with no significant pericardial effusion. Aorta: Sinus of Valsalva 3.9 cm. Aortic root is mildly dilated. IVC: Normal size and normal respiratory collapse consistent with normal right atrial pressure (<5 mmHg). CONCLUSIONS: Normal left ventricular systolic function. No focal wall motion abnormalities. Normal left ventricular size. Moderate concentric left ventricular hypertrophy. Paradoxical septal motion consistent with IVCD or bundle branch block. Indeterminate diastolic function. Ejection Fraction is visually estimated to be 65-70 %. Global Longitudinal Strain is -17 %. GLS is borderline. There is moderate enlargement of left atrium. There is mild enlargement of right atrium. Mild mitral valve regurgitation. Moderate aortic valve regurgitation. Mild tricuspid regurgitation. Mild pulmonic regurgitation. Sinus of Valsalva 3.9 cm. Aortic root is mildly dilated. Atrial fibrillation. Electronically Signed By: Pool Campuzano MD 11/06/2024 12:27:32 PM PROPERTY INSURANCE INSPECTOR 65-70 Procedure Note Pool Campuzano MD - 11/06/2024 [facility] Cardiology [address] [facility] [address] [address] [address] [facility] [address], [place] [address] P:[phone] P:[phone] Echocardiographic Report Patient Name: MURPHY ARREAGA G : 1945 Study Date: 11/06/2024 10:48:02 AM Gender: M Tech: KEATON Location: [facility] Provider: MARLEE DELONG Height(Cm): 170 BSA: 2.05 Weight(Kg): 88.9 Heart Rate: 72 BP: 117 / 67 Quality: Good Order Provider: MARLEE DELONG PROCEDURES: Echocardiographic Report: Transthoracic echocardiogram with complete 2D, M-Mode, and color Dopplerexamination. With Strain Analysis. INDICATIONS: R06.00 Dyspnea, unspecified. MEASUREMENTS: 2D/MM Value Range Doppler ValueRange Estimated EF 65-70 % LAMONT Vmax 3.12cm2 [ 2.00 - 4.00 ] LVIDd 2D 4.30 cm [ 4.20 - 5.80 ] AV Mean PG 4mmHg LVIDs 2D 2.57 cm [ 2.50 - 4.00 ] AV Peak Ty 1.39m/s [ 1.00 - 1.70 ] LVPWd 2D 1.32 cm [ 0.60 - 1.00 ] AV Peak PG 8mmHg IVSd 2D 1.26 cm [ 0.60 - 1.00 ] AV VTI 20.08cm LA Volume Index 45 cc/m2 [ 16 - 34 ] LVOT Diam 2.53 cm[ 1.70 - 2.10 ] LVOT Peak Ty 0.77 m/s [ 0.70 - 1.10 ] LVOT VTI 13.64 cm MV E Peak Ty 0.67 m/s [ 0.60 - 1.30 ] MV A Peak Ty 0.38 m/s [ 1.00 - 1.20 ] MV Decel Time 146 msec [ 104 - 258 ] Lateral E` 0.14 m/s [ 0.10 - 0.15 ] E` 0.09 m/s E/E` 5 2D/MM Value Range Doppler ValueRange - FINDINGS: Interpretation Site: Exam was interpreted at [facility]. Left Ventricle: Normal left ventricular systolic function. No focal wall motionabnormalities. Normal left ventricular size. Moderate concentric left ventricular hypertrophy.Paradoxical septal motion consistent with IVCD or bundle branch block. Indeterminatediastolic function. Ejection Fraction is visually estimated to be 65-70 %. GlobalLongitudinal Strain is -17 %. GLS is borderline. Right Ventricle: Normal right ventricular size. Normal right ventricular systolicfunction. Left Atrium: There is moderate enlargement of left atrium. Right Atrium: There is mild enlargement of right atrium. Atrial Septum: Normal atrial septum. Mitral Valve: Normal appearance of the mitral valve. Mild mitral valve regurgitation.There is no hemodynamically significant mitral stenosis by Doppler. Aortic Valve: No evidence of hemodynamically significant aortic stenosis by Doppler.Aortic cusps appear mildly sclerotic. Trileaflet aortic valve. Moderate aortic valveregurgitation. Tricuspid Valve: Normal appearance of the tricuspid valve. Normal right ventricularsystolic pressure. Estimated peak RVSP is 25-30 mmHg. Mild tricuspid regurgitation. Pulmonic Valve: Normal appearance of the pulmonic valve. No pulmonic stenosis. Mildpulmonic regurgitation. Pericardium: Normal pericardium with no significant pericardial effusion. Aorta: Sinus of Valsalva 3.9 cm. Aortic root is mildly dilated. IVC: Normal size and normal respiratory collapse consistent with normal rightatrial pressure (<5 mmHg). CONCLUSIONS: Normal left ventricular systolic function. No focal wall motionabnormalities. Normal left ventricular size. Moderate concentric left ventricular hypertrophy.Paradoxical septal motion consistent with IVCD or bundle branch block. Indeterminatediastolic function. Ejection Fraction is visually estimated to be 65-70 %. GlobalLongitudinal Strain is -17 %. GLS is borderline. There is moderate enlargement of left atrium. There is mild enlargement of right atrium. Mild mitral valve regurgitation. Moderate aortic valve regurgitation. Mild tricuspid regurgitation. Mild pulmonic regurgitation. Sinus of Valsalva 3.9 cm. Aortic root is mildly dilated. Atrial fibrillation. Electronically Signed By: Pool Campuzano MD 11/06/2024 12:27:32 PM PROPERTY INSURANCE INSPECTOR 65-70 Marlee Delong MD CV ECHO PROCEDURES Final Result from Last 3 Months Insurance MEDICARE [facility] MEDICARE [facility] Care Teams Catering Sales Manager Relationship Specialty Start Date End Date Wilver Maldonado DO PCP - General Internal Medicine 07/12/23
--- OUTSIDE RECORDS SUMMARY | 2025-01-05 01:16 | XMS_ITS | Clinical Summary ---
Author Organization [facility] Address [address] [place] [address] Phone Care Team Providers Care Post Tensioning Ironworker Name Role Phone Wilver Maldonado DO Primary Care Provider Allergies Active Allergy Reactions Criticality Noted Date Comments Amlodipine Swelling Medium 05/16/2018 Swelling and hypertrophy of gums Medications folic acid (FOLVITE) 1 mg tablet Take 1 mg by mouth daily. Active hydroCHLOROthiaz yadi 25 mg tablet Take 12.5 mg by mouth daily. 11/17/2020 Active losartan (COZAAR) 100 mg tablet Take 1 Tablet by mouth daily. 06/09/2022 Active rivaroxaban (Xarelto) 20 mg Tablet Take 1 Tablet by mouth daily. 11/07/2022 Active thiamine (VITAMIN B-1) 100 mg tablet Take 100 mg by mouth daily. Active ferrous sulfate 325 mg (65 mg iron) tablet Take 325 mg by mouth daily. Active multivitamins with minerals Tablet Take 1 Tablet by mouth daily. Active B-complex + vitamin C (SUPER B-C) Tablet Take 1 Tablet by mouth daily. Active cholecalciferol, vitamin D3, 5,000 unit Take 400 Units by mouth daily. Active omeprazole (PriLOSEC) 20 mg Capsule, Delayed Release(E.C.) Take 20 mg by mouth daily. 09/21/2023 Active amiodarone (CORDARONE) 200 mg tablet Take 400 mg by mouth daily. 07/17/2024 Active levothyroxine 50 mcg tablet Take 50 mcg by mouth daily. Active Active Problems No known active problems Encounters Date Type Department Care Team Description 12/17/2024 Orders Only [facility] Oncology and Hematology - [address] [place] [phone] Sravan Le MD 12/15/2024 Orders Only [facility] Oncology and Hematology - [address] [place] [phone] Sravan Le MD 12/12/2024 Orders Only [facility] and Hematology - [address] [place] [phone] Sravan Le MD 12/10/2024 External Device Data [facility] ABSTRACTION Provider, Abstract 12/09/2024 External Device Data [facility] ABSTRACTION Provider, Abstract from Last 3 Months Family History Relation Name Status Comments Father Mother Sister Alive Son Alive Social History Tobacco Use Types Packs/Day Years Used Date Smoking Tobacco: Never Smokeless Tobacco: Never Tobacco Cessation:Counseling Given: Not Answered Alcohol Use Standard Drinks/Week Comments Yes 3 (1 standard drink = 0.6 oz pur e alcohol) rare Sex and Gender Information Value Date Recorded Sex Assigned at Not on file Legal Sex Male 9:11 AM REGULATORY ASSISTANT Gender Identity Not on file Sexual Orientation Not on file Last Filed Vital Signs Vital Sign Reading Time Taken Comments Blood Pressure 139/76 08/11/2024 11:12 AM CDT Pulse 60 08/11/2024 11:12 AM CDT Temperature 36.4 C (97.5 F) 08/11/2024 11:12 AM CDT Respiratory Rate 15 08/11/2024 11:12 AM CDT Oxygen Saturation 97% 08/11/2024 11:12 AM CDT Inhaled Oxygen Concentration - - Weight 87.7 kg (193 lb 6.4 oz) 08/11/2024 11:12 AM CDT Height 170.2 cm (5' 7 ) 07/02/2023 10:13 AM CDT Body Mass Index 30.29 07/02/2023 10:13 AM CDT Plan of Treatment Upcoming Encounters Date Type Department Care Team (Late st Contact Info) Description 01/09/2025 11:30 AM REGULATORY ASSISTANT Office Visit [facility] Oncology and Hematology - [address] [place] [phone] Sravan Le MD [address] [facility] [address] [place] [address] Health Maintenance Due Date Last Done Comments DTAP/TDAP/TD VACCINES (1 - Tdap) 1964 Traditional Medicare (ACO) A nnual Wellness Visit 1964 ZOSTER VACCINE (1 of 2) 1996 PNEUMOCOCCAL VACCINE 65+ YEA RS (2 of 2 - PPSV23) 12/26/2017 12/26/2016 RSV VACCINE (60+ or ) (1 - 1-dose 75+ series) 2021 INFLUENZA VACCINE (#1) 2024 12/26/2016 COLORECTAL SCREENING Discontinued 09/21/2023, 09/21/2023, 09/21/2023 Colorectal Cancer Screening Discontinued FIT-DNA Q 3 years Discontinued FIT/FOBT Q 1 year Discontinued Flex Sig/CT Colonography Q 5 years Discontinued Procedures Procedure Name Priority Date/Time Associated Diagnosis Comments TESTOSTERONE FREE Routine 12/10/2024 2:2 8 PM REGULATORY ASSISTANT COMPREHENSIVE METABOLIC PANEL Routine 12/10/2024 1:56 PM REGULATORY ASSISTANT CBC WITH DIFFERENTIAL Routine 12/10/2024 10:31 AM REGULATORY ASSISTANT from Last 3 Months Results * TESTOSTERONE FREE (12/10/2024 2:28 PM REGULATORY ASSISTANT) Blood Sravan Le MD CHEMISTRY ORDERABLES Final Resu lt * COMPREHENSIVE METABOLIC PANEL (12/10/2024 1:56 PM REGULATORY ASSISTANT) Blood Sravan Le MD CHEMISTRY ORDERABLES Final Resu lt * CBC WITH DIFFERENTIAL (12/10/2024 10:31 AM REGULATORY ASSISTANT) Blood Sravan Le MD HEMATOLOGY ORDERABLES Final Res ult from Last 3 Months Insurance MEDICARE PART A AND B MEDICARE PART A AND B [facility] [id number] Care Teams Post Tensioning Ironworker Relationship Specialty Start Date End Date Wilver Maldonado DO [address] [facility] [address] [place] [address] PCP - General Internal Medicine 07/02/23
--- OUTSIDE RECORDS SUMMARY | 2025-01-05 01:16 | XMS_ITS | Clinical Summary ---
Author Organization [facility] [address] [place] Address [address] [place] [address] Care Team Providers Care Monorail Hooker Name Role Phone Wilver Maldonado DO Primary Care Provider [phone] Allergies Active Allergy Reactions Criticality Noted Date [...] 1 tablet (50 mcg total) by mouth cotton grower before breakfast Active thiamine (VITAMIN B-1) 100 [...] extended release tabletIndications: Paroxysmal atrial fibrillation (CMS/HCC) ([facility]) Take 1 tablet (50 mg total) by mouth daily 30 tablet 11 12/02/19 25 2025 Active Active Problems Problem Noted Date Diagnosed Date Nonrheumatic aortic valve insufficiency 04/20/20 20 Paroxysmal atrial fibrillation ([facility]) 017 DVT (deep venous thrombosis) ([facility]) 7 Essential hypertension 07/20/2017 Pulmonary emboli 07/20/2017 Chronic anticoagulation 07/20/2017 Bradycardia 07/20/2017 Dizziness 07/20/2017 Moderate episode of recurrent major depressive d isorder 11/01/2016 Overview (02/22/2017): Moderate episode of recurrent major depressive disorder Acute cholecystitis 12/16/2015 Overview (02/22/2017): Acute cholecystitis Encounters Date Type Department Care Team Description 12/03/2024 Telephone [facility] [address] [address] Tye Kirby III, MD Scheduling Appointments 12/01/2024 Telephone [facility] Cardiology [address] [place] [address] [place] [phone] Lou Kent NP 11/28/2024 11:30 AM CUSTODIAN SUPERVISOR Office Visit [facility] Cardiology [address] [place] [address] [address] [place] [phone] Lou Kent NP Paroxysmal atrial fibrillation (CMS/HCC) ([facility]); 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; Chronic anticoagulation; Lipid screening 11/28/2024 Telephone [facility] Cardiology [address] [place] [phone] Lou Kent NP 11/06/2024 10:15 AM CUSTODIAN SUPERVISOR Ancillary Procedure [address] [place] [phone] Dyspnea, unspecified type 10/29/2024 Telephone [place] [address] [place] [phone] Magnus Delong MD 10/28/[address] [place] [phone] Magnus Delong MD Fatigue; Dizziness from Last 3 Months Surgical History Surgery Date Site/Laterality Comments OTHER SURGICAL HISTORY orif rt ankle INGUINAL HERNIA REPAIR Right Inguinal Hernia repair KNEE ARTHROPLASTY Left Knee replacement LAPAROSCOPIC CHOLECYSTECTOMY 2015 Cholecystectomy, laparoscopic Medical History Medical History Date Comments Gout Gout Deep vein thrombosis (DVT) ( [facility]) ([facility]) Deep venous thrombosis Hypertension Hypertension Atrial fibrillation ([facility]) ([facility]) Atrial fibrillation; Comments: GDS 01/05/2016 - Hx Other Medical PE/DVT; Comment s: ROSALINDA 03/03/2016 - Paroxysmal atrial fibrillati on ([facility]/HCC) ([facility]) 07/20/2017 DVT (deep venous thrombosis) ([facility]) ([facility]) 07/20/2017 Pulmonary emboli ([facility]) 07/20/2017 Chronic anticoagulation 07/20/2017 Bradycardia 07/20/2017 Dizziness 07/20/2017 Family History Medical History Relation Name Comments Cancer Other 1 Family history of Cancer, unknown; Lung disease Other 2 Family history of Lung disease; Relation Name Status Comments Other 1 Other 2 Social History Tobacco Use Types Packs/Day Years Used Date Smoking Tobacco: Never Smokeless Tobacco: Never Tobacco Cessation:Counseling Given: Not Answered Alcohol Use Standard Drinks/Week Comments Yes 0 (1 standard drink = 0.6 oz pur e alcohol) Sex and Gender Information Value Date Recorded Sex Assigned at Not on file Legal Sex Male 8:58 PM CUSTODIAN SUPERVISOR Gender Identity Not on file Sexual Orientation Not on file Obstetrics History Last Filed Vital Signs Vital Sign Reading Time Taken Comments Blood Pressure 96/60 11/28/2024 11:22 AM CUSTODIAN SUPERVISOR Pulse 90 11/28/2024 11:22 AM CUSTODIAN SUPERVISOR Temperature - - Respiratory Rate 12 01/20/2021 7:46 AM CUSTODIAN SUPERVISOR Oxygen Saturation 98% 11/28/2024 11:22 AM CUSTODIAN SUPERVISOR Inhaled Oxygen Concentration - - Weight 82.6 kg (182 lb) 11/28/2024 11:22 AM CUSTODIAN SUPERVISOR Height 170.2 cm (5' 7 ) 11/28/2024 11:22 AM CUSTODIAN SUPERVISOR Body Mass Index 28.51 11/28/2024 11:22 AM CUSTODIAN SUPERVISOR Plan of Treatment Health Maintenance Due Date Last Done Comments Depression Screening 1945 Fall Risk Assessment 1945 Hepatitis C Screening 1945 DTaP/Tdap/Td Vaccine (1 - Tdap) 1957 Hepatitis B Screening 1964 Zoster Vaccine (1 of 2) 1996 Well Visit 65+ 2011 Pneumococcal vaccine 65+ (2 of 2 - PPSV23 or PCV20) 12/26/2017 12/26/2016 Influenza Vaccine (#1) 2024 12/26/2016, 2015 Procedures Procedure Name Priority Date/Time Associated Diagnosis Comments ECG 12-LEAD Routine 11/28/2024 11:32 AM CUSTODIAN SUPERVISOR Paroxysmal atrial fibrillation (CMS/HCC) (HCC) POCT LIPID PANEL Routine 11/28/2024 11:3 2 AM CUSTODIAN SUPERVISOR Lipid screening HEMOGLOBIN AND HEMATOCRIT Routine 11/28/2024 Chronic anticoagulation THYROID FUNCTION CASCADE Routine 11/28/2024 assisted current use of amiodarone TRANSTHORACIC ECHO (TTE) COMPLETE W DOPPLER/CF WO CONTRAST Routine 11/06/2024 10:47 AM CUSTODIAN SUPERVISOR Dyspnea, unspecified type from Last 3 Months Results * POCT lipid panel (11/28/2024 11:32 AM CUSTODIAN SUPERVISOR) Cholesterol, POC 159 mg/dL HDL, POC 61 mg/dL Triglycerides, POC 83 mg/dL LDL Cholesterol POC 81 mg/dL Chol/HDL Ratio, POC 1.3 Non-HDL Cholesterol, POC 97 mg/dL Cholesterol Total, POC 159 mg/dL Capillary blood 11/28/2024 1 1:32 AM CUSTODIAN SUPERVISOR Lou Kent NP POINT OF CARE TEST ORDERA BLES Final Result * ECG 12 lead (11/28/2024 11:32 AM CUSTODIAN SUPERVISOR) 11/28/2024 11:3 2 AM CUSTODIAN SUPERVISOR Lou Kent NP ECG ORDERABLES Edited Re sult - Final * Thyroid Function [place] (11/28/2024) Blood 11/28/2024 Lou Kent PIECE PRESSER LAB BLOOD ORDERABLES Marisela l Result Performing Organization Address [facility] Co de Phone Number EXTERNAL LAB * (ABNORMAL) Hemoglobin and hematocrit (11/28/2024) SCRIBED Hemoglobin 12.2(A) 14.0 - 18.0 g/dL EXTERNAL LAB SCRIBED Hematocrit 36.4(A) 42.0 - 52.0 % EXTERNAL LAB Blood 11/28/2024 Lou Kent PIECE PRESSER LAB BLOOD ORDERABLES Marisela l Result Performing Organization Address [facility] Co de Phone Number EXTERNAL LAB * TRANSTHORACIC ECHO (TTE) COMPLETE W DOPPLER/CF WO CONTRAST (11/06/2024 10:47 AM CUSTODIAN SUPERVISOR) Anatomical Region Laterality Modality Ultrasound 11/06/2024 10:4 8 AM CUSTODIAN SUPERVISOR Narrative 11/06/2024 12:28 PM CUSTODIAN SUPERVISOR [facility] Cardiology [address] [facility] [address], [place] [address] [address], [place] [address] P:[phone] P:[phone] Echocardiographic Report Patient Name: MURPHY ARREAGA G : 1945 Study Date: 11/06/2024 10:48:02 AM Gender: M Tech: Location: [facility] Provider: MAGNUS DELONG Height(Cm): 170 BSA: 2.05 Weight(Kg): 88.9 Heart Rate: 72 BP: 117 / 67 Quality: Good Order Provider: MAGNUS DELONG PROCEDURES: Echocardiographic Report: Transthoracic echocardiogram with [...] FINDINGS: Interpretation Site: Exam was interpreted at [facility]. Left Ventricle: Normal left ventricular systolic function. [...] By: Pool Campuzano MD 11/06/2024 12:27:32 PM CUSTODIAN SUPERVISOR 65-70 Procedure Note Pool Campuzano MD - 11/06/2024 [facility] Cardiology [address], [place] [address] [address] [facility] [address], [place] [address] P:[phone] P:[phone] Echocardiographic Report Patient Name: MURPHY ARREAGA G : 1945 Study Date: 11/06/2024 10:48:02 AM Gender: M Tech: Location: [facility] Provider: MAGNUS DELONG Height(Cm): 170 BSA: 2.05 Weight(Kg): 88.9 Heart Rate: 72 BP: 117 / 67 Quality: Good Order Provider: MAGNUS DELONG PROCEDURES: Echocardiographic Report: Transthoracic echocardiogram with [...] FINDINGS: Interpretation Site: Exam was interpreted at [facility]. Left Ventricle: Normal left ventricular systolic function. [...] By: Pool Campuzano MD 11/06/2024 12:27:32 PM CUSTODIAN SUPERVISOR 65-70 Magnus Delong MD CV ECHO PROCEDURES Final Result from Last 3 Months Insurance MEDICARE [facility] MEDICARE A[employer] Care Teams Monorail Hooker Relationship Specialty Start Date End Date Wilver Maldonado DO PCP - General Internal Medicine 07/12/23
--- OUTSIDE RECORDS SUMMARY | 2025-01-05 01:16 | XMS_ITS | Clinical Summary ---
Author Organization [facility] Address [address] [place] [address] Phone Care Team Providers Care Cell Technician Name Role Phone Gerry Cruz MD Primary Care Provider [phone] Allergies No known active allergies Medications metoprolol tartrate (LOPRESSOR) 25 MG Tablet Take 25 mg by mouth 2 times daily. Active amLODIPine (NORVASC) 10 MG Tablet Take 10 mg by mouth daily. Active amiodarone (CORDARONE) 200 MG Tablet Take 200 mg by mouth daily. . Active famotidine (PEPCID) 10 MG Tablet Take 10 mg by mouth 2 times daily. Active sertraline (ZOLOFT) 50 MG Tablet Take 50 mg by mouth daily. Active rivaroxaban (XARELTO) 20 MG Tablet Take 20 mg by mouth daily (with dinner). Take with food. Active ferrous sulfate 325 (65 FE) MG Tablet Take 325 mg by mouth daily. Active ondansetron (ZOFRAN-ODT) 4 MG TABLET DISPERSIBLE Take 1 Tab by mouth every 6 hours as needed. 30 Tab 0 7 Active docusate sodium (COLACE) 100 MG Capsule Take 1 Cap by mouth 2 times daily as needed for Constipation. 30 Cap 3 7 Active polyethylene glycol (GLYCOLAX, MIRALAX) Pack Take 1 Packet by mouth daily. Dissolve in 4-8 oz of liquid. 90 Packet 3 7 Active oxyCODONE-acetam inophen (PERCOCET) 5-325 MG Tablet Take 1-2 Tabs by mouth every 6 hours as needed. 63 Tab 0 7 Active Active Problems Problem Noted Date Diagnosed Date Primary osteoarthritis of right knee 12/26/2016 Immunizations Immunization Administration Dates Next Due Influenza, high-dose, trivalent, PF 12/26/2016 Pneumococcal Vaccine - 13 Valent 12/26/2016 Family History Medical History Relation Name Comments Cancer Mother colon and lung Relation Name Status Comments Father Other does not know Mother colon and lung Social History Tobacco Use Types Packs/Day Years Used Date Smoking Tobacco: Never Smokeless Tobacco: Never Alcohol Use Standard Drinks/Week Comments Yes 14 (1 standard drink = 0.6 oz pu re alcohol) Sex and Gender Information Value Date Recorded Sex Assigned at Not on file Legal Sex Male 3:01 PM EVAPORATOR HELPER Gender Identity Not on file Sexual Orientation Not on file Last Filed Vital Signs Vital Sign Reading Time Taken Comments Blood Pressure 106/50 12/28/2016 7:00 AM EVAPORATOR HELPER Pulse 61 12/28/2016 7:00 AM EVAPORATOR HELPER Temperature 37.1 C (98.8 F) 12/28/2016 7:00 AM EVAPORATOR HELPER Respiratory Rate 20 12/28/2016 7:00 AM EVAPORATOR HELPER Oxygen Saturation 97% 12/28/2016 9:1 5 AM EVAPORATOR HELPER at rest and 96% with activity Inhaled Oxygen Concentration - - Weight 98.4 kg (217 lb) 12/25/2016 5:14 PM EVAPORATOR HELPER Height 170.2 cm (5' 7 ) 12/25/2016 5:14 PM EVAPORATOR HELPER Body Mass Index 33.99 12/25/2016 5:14 PM EVAPORATOR HELPER Plan of Treatment Health Maintenance Due Date Last Done Comments Hepatitis C Virus (HCV) Screening 1945 TdaP Immunization 1945 Zoster Immunization (1 of 2) 1996 Pneumococcal Immunization (5 0+ years) (2 of 2 - PPSV23) 12/26/2017 12/26/2016 Respiratory Syncytial Virus (RSV) Immunization (Adult) (1 - 1-dose 75+ series) 2021 Influenza Immunization (#1) 2024 12/26/2016 SARS-COV-2 Immunization ( - 2023- season) 2024 Pneumococcal Immunization Combined Discontinued 12/26/2016 Hepatitis B Immunization Aged Out No longer eligible based on patient's age to complete this topic Meningococcal Immunization (ACWY) Aged Out No longer eligible based on patient's age to complete this topic Rotavirus Immunization Aged Out No lo nger eligible based on patient's age to complete this topic Medical Devices Implanted Type Area Quality Control Operator Device Identifier Shelf Expiration Date Model / Serial / Lot Cmnt Bn Endrn Sst Gnta 40gm Hvisc - [id number] Implanted:Qty: 2 on 12/25/2016 by Diego Diaz MD at [facility] IMPLANT Right: Knee [employer] / [employer] 05/18/2018 [id number] / / [id number] Implant Knee Patella Attune Medial Dome - [id number] Implanted:Qty: 1 on 12/25/2016 by Diego Diaz MD at [facility] IMPLANT Right: Knee [employer] / [employer] 09/18/2021 [id number] / / [id number] Attune Femoral Posterior Stabilized Implanted:Qty: 1 on 12/25/2016 by Diego Diaz MD at [facility] Right: Knee [employer] 02/16/2026 [id number] / / [id number] Attune Tibial Base Rotating Platform Implanted:Qty: 1 on 12/25/2016 by Diego Diaz MD at [facility] Right: Knee [employer] 11/18/2026 [id number] / / [id number] Attune Tibial Insert Rotating Platform Posterior Stabilized Implanted:Qty: 1 on 12/25/2016 by Diego Diaz MD at [facility] Right: Knee [employer] 09/18/2020 [id number] / / [id number] Insurance MEDICARE [facility] Advance Directives Documents on File Type Date Recorded Patient 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 PRE-ARREST: Use entire range of life support measures to stabilize the patient. Care Teams Cell Technician Relationship Specialty Start Date End Date Gerry Cruz MD [address] [place] [id number] PCP - General Family Medicine 12/14/16
[2025-01-05 09:38] VITALS: BP 137/53; PULSE 55; RESP 16; TEMP 35.6; O2SAT 99; BMI 28.3
[2025-01-05] MEDS: LACTATED RINGERS 1,000 ML 150 ML IV CONT (09:59)
--- NOTE | 2025-01-05 10:34 | P.HP_ITS ---
H&P: HPI History of Present Illness Date/Time: 01/05/25 10:34 Chief Complaint: History of colon polyps - family history of colorectal cancer Narrative: The patient has a history of colonic polyps, the last colonoscopy was 2 years ago. Of note, in July 2023 a sigmoid polyp was removed and had adenocarcinoma. Subsequent colonoscopy 2 months later showed no residual tumor in the area which was tattooed during the 1st colonoscopy. He comes today for surveillance colonoscopy. lastly, his mother had colorectal cancer when she was in her 50s. Review of Systems Review of Systems: All systems reviewed & are unremarkable except as noted in HPI and below PMFSH Past Medical History Medical History Atrial fibrillation Chronic alcohol abuse Depression DVT (deep venous thrombosis) Family hx of colon cancer GERD (gastroesophageal reflux disease) Hypertension Macrocytic anemia CHEO (obstructive sleep apnea) Pulmonary embolism Surgical History Surgical History History of cholecystectomy History of total knee arthroplasty Family History Family History Mother Cancer Social History Social History Smoking status: Never smoker Second hand tobacco smoke exposure: No Alcohol intake: current Drinks per week: 14 Alcohol use details: daily, wine Substance use: never Substance use type: does not use Other substance usage details: on occasion Do You Feel Safe in your Home?: Yes Lack of Transportation: No Lack of Food: Never True Current Housing: I Have Housing Concerned About Future Housing: No Difficulty Paying Gas/Electric Bills: No Difficulty Paying for Meds: No Currently Unemployed: No Education: High School Diploma/GED Difficulty w/ Childcare or Family Care: No Living arrangements: alone Additional living arrangements comments: Son and sister both live few blocks away Gender identity (if verbalized by the patient): Male Sexual Orientation (if Verbalized by the Patient): Straight or Heterosexual Spiritual care concerns: No Meds Home Medications and Allergies Home Medications ?Medication ?Instructions ?Recorded ?Confirmed ?Type folic acid 1 mg PO DAILY 02/25/21 01/05/25 History losartan 100 mg tablet 100 mg PO DAILY 02/25/21 01/05/25 History multivitamin 1 tablet PO DAILY 02/25/21 01/05/25 History rivaroxaban 20 mg tablet (Xarelto) 20 mg PO DAILY 02/25/21 01/05/25 History cholecalciferol (vitamin D3) 125 125 mcg PO DAILY 02/27/24 01/05/25 History mcg (5,000 unit) capsule omeprazole 20 mg capsule,delayed 20 mg PO QAM 05/02/24 01/05/25 History release levothyroxine 50 mcg tablet 50 mcg PO DAILY #90 tabs 08/14/24 01/05/25 Rx needle (disp) 18 G 18 gauge x 1 #100 ea 10/06/24 12/18/24 Rx (BD Regular Bevel [place]) syringe with needle 3 mL 25 x 1 #100 ea 10/06/24 12/18/24 Rx 1/2 (BD Luer-Martha Syringe) hydrochlorothiazide 25 mg tablet 12.5 mg (1/2 x 25 mg) PO DAILY #45 10/22/24 01/05/25 Rx tabs testosterone cypionate 200 mg/mL 140 mg (0.7 mL) IM WEEKLY #10 mL 12/05/24 01/05/25 Rx intramuscular oil (Depo-Testosterone) metoprolol succinate 50 mg 50 mg PO DAILY 12/25/24 01/05/25 History tablet,extended release 24 hr Allergies Allergy/AdvReac Type Severity Reaction Status Date / Time amlodipine Allergy Intermediate Swelling Verified 01/05/25 09:47 Vital Signs Vital Signs - 24 hr 01/05/25 09:38 Temperature 96.1 F L Pulse Rate 55 L Respiratory Rate 16 Blood Pressure 137/53 L Pulse Oximetry 99 Oxygen Delivery Room Air Exam Const: General: cooperative and healthy appearing Resp: Effort & Inspection: normal respiratory effort and able to speak in complete sentences Auscultation: clear to auscultation bilaterally Cardio: Rate: regular rate Rhythm: regular rhythm GI: Inspection: normal to inspection GI Palp: No No hepatosplenomegaly present Auscultation: normal bowel sounds Rectal Exam: deferred Skin: General skin exam: normal color Psych: Appearance: grossly normal Mental Status: mental status grossly normal Assessment and Plan Assessment and plan (1) Carcinoma of colon: Code(s): C18.9 - Malignant neoplasm of colon, unspecified Status: Acute Assessment and Plan: The patient is deemed a good candidate for the procedure. Consent signed. Will proceed. (2) Family history of colon cancer: Code(s): Z80.0 - Family history of malignant neoplasm of digestive organs Status: Acute
--- NOTE | 2025-01-05 10:43 | WPDANESEPPF ---
Anes - Initial Pre Proc Eval Procedure: Operation Date: 01/05/25 10:30 Proposed Procedures p Screening Colonoscopy - Jose Armando Barba MD Date/Time: 01/05/25 10:43 Surgeon: Jose Armando Barba MD Pre Op Diagnosis: hx colon cancer Patient Data Age: 79 Gender: M Height: 1.7 m Weight: 81.9 kg Last Vital Signs Temp 96.1 F L 01/05/25 09:38 Pulse 55 L 01/05/25 09:38 Resp 16 01/05/25 09:38 BP 137/53 L 01/05/25 09:38 Pulse Ox 99 01/05/25 09:38 O2 Del Method Room Air 01/05/25 09:38 Allergies Allergy/AdvReac Type Severity Reaction Status Date / Time amlodipine Allergy Intermediate Swelling Verified 01/05/25 09:47 Home Medications ?Medication ?Instructions ?Recorded ?Confirmed ?Type folic acid 1 mg PO DAILY 02/25/21 01/05/25 History losartan 100 mg tablet 100 mg PO DAILY 02/25/21 01/05/25 History multivitamin 1 tablet PO DAILY 02/25/21 01/05/25 History rivaroxaban 20 mg tablet (Xarelto) 20 mg PO DAILY 02/25/21 01/05/25 History cholecalciferol (vitamin D3) 125 125 mcg PO DAILY 02/27/24 01/05/25 History mcg (5,000 unit) capsule omeprazole 20 mg capsule,delayed 20 mg PO QAM 05/02/24 01/05/25 History release levothyroxine 50 mcg tablet 50 mcg PO DAILY #90 tabs 08/14/24 01/05/25 Rx needle (disp) 18 G 18 gauge x 1 #100 ea 10/06/24 12/18/24 Rx (BD Regular Bevel [place]) syringe with needle 3 mL 25 x 1 #100 ea 10/06/24 12/18/24 Rx 1/2 (BD Luer-Martha Syringe) hydrochlorothiazide 25 mg tablet 12.5 mg (1/2 x 25 mg) PO DAILY #45 10/22/24 01/05/25 Rx tabs testosterone cypionate 200 mg/mL 140 mg (0.7 mL) IM WEEKLY #10 mL 12/05/24 01/05/25 Rx intramuscular oil (Depo-Testosterone) metoprolol succinate 50 mg 50 mg PO DAILY 12/25/24 01/05/25 History tablet,extended release 24 hr Patient hx anesthesia problems: none Family hx anesthesia problems: none Results Review: All pre-operative results and documents have been reviewed as part of the pre-operative evaluation. [facility] Past Medical History Medical History CHEO (obstructive sleep apnea) DVT (deep venous thrombosis) Chronic alcohol abuse GERD (gastroesophageal reflux disease) Family hx of colon cancer Macrocytic anemia Depression Pulmonary embolism Hypertension Atrial fibrillation Surgical History Surgical History History of total knee arthroplasty History of cholecystectomy Family History Family History Mother Cancer Social History Social History (Reviewed 09/26/24 @ 08:32 by Rowena Shin [facility] [address]) Smoking status: Never smoker Second hand tobacco smoke exposure: No Alcohol intake: current Drinks per week: 14 Alcohol use details: daily, wine Substance use: never Substance use type: does not use Other substance usage details: on occasion Do You Feel Safe in your Home?: Yes Lack of Transportation: No Lack of Food: Never True Current Housing: I Have Housing Concerned About Future Housing: No Difficulty Paying Gas/Electric Bills: No Difficulty Paying for Meds: No Currently Unemployed: No Education: High School Diploma/GED Difficulty w/ Childcare or Family Care: No Living arrangements: alone Additional living arrangements comments: Son and sister both live few blocks away Gender identity (if verbalized by the patient): Male Sexual Orientation (if Verbalized by the Patient): Straight or Heterosexual Spiritual care concerns: No Anes - Eval Final PreProcedure Day of Procedure 01/05/25 10:43 Patient weight: overweight Heart: regular rate and rhythm Lungs: normal air movement and decreased breath sounds Airway: Mallampati scale and special considerations (Missing many teeth, most on upper. ) poor dentition Neurological: alert and oriented Last oral intake: >/= 8 hours ASA classification: IV Emergent: no Anesthetic plan: proceed Anesthesia type and monitoring: general GIVS and standard monitoring Results Review: All pre-operative results and documents have been reviewed as part of the pre-operative evaluation. Pt w CHEO not compliant w CPAP, hx afib, now on b karl taken yest 10 am, CKD, ETOH use. Informed Consent: The patient's anesthetic plan and its attendant risks and benefits were discussed with the patient/family/POA. Questions were solicited and answers provided to the satisfaction of the patient/family/POA.
[2025-01-05 11:13] VITALS: BP 103/59; PULSE 61; RESP 16; O2SAT 98
[2025-01-05 11:23] VITALS: BP 113/58; PULSE 60; RESP 16; O2SAT 99
[2025-01-05 11:33] VITALS: BP 111/60; PULSE 60; RESP 16; O2SAT 98
== END 2025-01-05 11:43 | disposition home or self-care (01) ==
PROVIDERS: PCP Nurse Practitioner; Referring Provider Internal Medicine Gastroenterology; Visit Provider Internal Medicine Gastroenterology
PROC: 0DJD8ZZ Inspection of Lower Intestinal Tract, Via Natural or Artificial Opening Endoscopic (ICD-10-PCS; CPT 45378; principal; 2025-01-05 10:30)
DX: Z08 Encounter for follow-up examination after completed treatment for malignant neoplasm (principal); K63.5 Polyp of colon; K64.8 Other hemorrhoids; Z85.038 Personal history of other malignant neoplasm of large intestine; Z80.0 Family history of malignant neoplasm of digestive organs
CPT/HCPCS: 45385; 88305; J1596; J2003; J2704; J7120

== ENCOUNTER 2025-01-19 08:49 | Inpatient (IN) | payer MEDICARE, SELFPAY ==
--- NOTE | ~2025-01-19 | XR_ITS ---
INTRAOPERATIVE FLUOROSCOPY: CLINICAL HISTORY: 79 years old Male; CYSTO BI STENT PLACEMENT, BI RETROGRADE PROCEDURE COMMENTS: Limited intraoperative fluoroscopy of the retroperitoneum was performed. CUMULATIVE DOSE: 31.8 mGy FLUOROSCOPY TIME: 80.7 seconds FINDINGS/IMPRESSION: Please refer to operative note for further details. Reviewed, dictated and finalized at location A. FILLER
--- NOTE | ~2025-01-19 | XR_ITS ---
Exam: Abdomen 1V HISTORY: kidney stones COMPARISON: Reference is made to a CT examination of the abdomen and pelvis, performed on the same da y approximately 9 hours earlier TECHNIQUE: Supine images of the abdomen FINDINGS: Bowel gas pattern is non-obstructive. There is no free air or deep sulci. No right ureteral calculus is identified adjacent to the base of the trapeze inferior vena cava filte r, as detected on previous CT examination. Innumerable phleboliths as well as significant vascular calcifications are present within the pelvis, which may represent this patient's distal left ureteral calculi. No calcifications are identified projecting over the lower pole of the right kidney, corresponding to today's CT examination. IMPRESSION: Nonspecific, nonobstructive bowel gas pattern. Poor visualization of the CT findings of obstructing and nonobstructing calculi, as detailed above. Reviewed, dictated and finalized at location A. CEMENTER IMPRESSION: Nonspecific, nonobstructive bowel gas pattern. Poor visualization of the CT findings of obstructing and nonobstructing calculi , as detailed above.
--- NOTE | ~2025-01-19 | CT_ITS ---
Non-contrast CT scan of the Abdomen and Pelvis Clinical indication: Ureteral calculi Technique: 2.5 mm axial scans were obtained through the abdomen and pelvis without intravenous or or al contrast. Dose reduction technique was used on this scan by utilizing automated exposure control a nd iterative reconstruction technique. The dose-length product (DLP) was 309.67 mGy-cm. COMPARISON: 01/19/2025 Findings: Images through the lung bases reveal enlarging small bilateral pleural effusions with biba silar atelectatic change.. 3-4 mm right ureteral stone has migrated to the distal ureter since prior exam (axial image 158), wit h persistent mild right hydronephrosis. Stable additional small nonobstructing right renal stones. St able 3-4 mm of the distal left ureter, with mild left hydroureteronephrosis. Stable additional puncta te stone also the distal ureter, slightly more proximally, layering in a more dilated portion of the ureter. The liver, spleen, pancreas, and adrenals appear normal. Status post cholecystectomy. There are ather osclerotic calcifications of the aorta. IVC filter in place. There is no evidence of bowel obstruction. Images through the pelvis were performed. Small amount of abdominal ascites present. Urinary bladder unremarkable. No pelvic mass. Impression: 3-4 mm right ureteral stone has migrated to the distal ureter. Stable mild right hydronephrosis and a dditional nonobstructing renal stones. Stable distal left ureteral stones, as detailed above, with mild left hydroureteronephrosis. Small amount of abdominopelvic ascites. Small bilateral pleural effusions, increased from prior exam. Reviewed, dictated and finalized at [facility]. IRER SWITCHGEAR Impression: 3-4 mm right ureteral stone has migrated to the distal ureter. Stable mild righ t hydronephrosis and additional nonobstructing renal stones. Stable distal left ureteral stones, as detailed above, with mild left hydrouret eronephrosis. Small amount of abdominopelvic ascites. Small bilateral pleural effusions, increased from prior exam.
--- NOTE | ~2025-01-19 | CT_ITS ---
CT abdomen pelvis wo con Ordering provider: Gisselle Castillo APRN History: 79 years Male with . blood in urine, abdominal pain . Comparison: None. Technique: CT abdomen and pelvis without IV and without oral contrast. Automated exposure control and iterative reconstruction technique were employed. The dose-length product was 708.90 mGy-cm. Findings: VISUALIZED LOWER CHEST: Atelectatic changes seen in the right lung base. Minimal effusion the right l pepe base posteriorly with possible pleural effusion thickening. UPPER ABDOMINAL ORGANS: Liver: Normal. Minimal fluid is seen around the liver. Gallbladder: Status post cholecystectomy. Spleen: Normal. Fluid seen around the spleen. Stomach/duodenum: Normal. Pancreas: Normal. Adrenals: Normal. Kidneys: 3 mm stone is seen in the right upper ureter with right hydronephrotic changes. Stones are s een in the right kidney lower pole. Stones in the left lower ureter with the largest measures 5 mm. Left hydronephrotic changes are noted . Tiny stone in the left kidney lower pole. PELVIC ORGANS: The bladder is underfilled with thickened wall. BOWEL AND MESENTERY: Colon: No evidence of diverticulitis.. The appendix is not demonstrated.1 Small Bowel: Normal. No obstruction. Peritoneum/mesentery: No free air. Free fluid is seen around the liver, spleen and in the pelvis.. No mesenteric lymphadenopathy. RETROPERITONEUM: Mild atheromatous disease of the abdominal aorta. IVC filter is noted. No retroperi toneal lymphadenopathy. MUSCULOSKELETAL: Superficial soft tissues: The superficial soft tissues are normal. Bones: Age appropriate degenerative changes of the spine. IMPRESSION: 1. No evidence of appendicitis, diverticulitis or intestinal obstruction. 2. Bilateral ureteric stones with bilateral hydronephrotic changes. Bilateral kidney stones. 3. Ascites. 4. Underfilled urinary bladder with thickened wall. Evaluation for cystitis advised. Reviewed, dictated and finalized at location A. PRODUCER IMPRESSION: 1. No evidence of appendicitis, diverticulitis or intestinal obstruction. 2. Bilateral ureteric stones with bilateral hydronephrotic changes. Bilateral kidney stones. 3. Ascites. 4. Underfilled urinary bladder with thickened wall. Evaluation for cystitis ad vised.
[2025-01-19 08:45] VITALS: BP 119/85; PULSE 95; RESP 16; TEMP 36.4; O2SAT 100
--- NOTE | 2025-01-19 09:40 | ED_ITS ---
HPI - Male Genitourinary General Chief complaint: Urogenital-Male Stated complaint: BLOOD IN URINE Time Seen by Provider: 01/19/25 09:03 History of Present Illness HPI Narrative: Patient is a 79-year-old male who presents to the ER with a 1 week history of blood in his urine and abdominal pain. He reports he had a colonoscopy approximately 2 weeks ago and it showed no acute abnormalities. Patient reports he is having difficulty urinating, but denies clots. He reports he is on Xarelto for a history of DVTs, PE, and atrial fibrillation. Patient also endorses a history of a gangrenous gallbladder, multiple joint replacements, and multiple hospital stays. He also endorses a history of massive diarrhea after receiving his COVID vaccine last week. Patient also endorses he has recently lost 40 lb inadvertently. He denies chest pain, shortness of breath, recent fevers, back pain. Related Data Home Medications ?Medication ?Instructions ?Recorded ?Confirmed ?Last Taken ?Type folic acid 1 mg PO DAILY 02/25/21 01/19/25 01/18/25 History losartan 100 mg tablet 100 mg PO DAILY 02/25/21 01/19/25 01/18/25 History multivitamin 1 tablet PO DAILY 02/25/21 01/19/25 01/18/25 History rivaroxaban 20 mg tablet (Xarelto) 20 mg PO DAILY 02/25/21 01/19/25 01/18/25 History cholecalciferol (vitamin D3) 125 125 mcg PO DAILY 02/27/24 01/19/25 01/18/25 History mcg (5,000 unit) capsule omeprazole 20 mg capsule,delayed 20 mg PO QAM 05/02/24 01/19/25 01/18/25 History release metoprolol succinate 50 mg 50 mg PO DAILY 12/25/24 01/19/25 01/18/25 History tablet,extended release 24 hr Allergies Allergy/AdvReac Type Severity Reaction Status Date / Time amlodipine Allergy Intermediate Swelling Verified 01/05/25 09:47 Review of Systems 2 Review of Systems: All systems reviewed & are unremarkable except as noted in HPI and below PMFSH Past Medical History Medical History CHEO (obstructive sleep apnea) DVT (deep venous thrombosis) Chronic alcohol abuse GERD (gastroesophageal reflux disease) Family hx of colon cancer Macrocytic anemia Depression Pulmonary embolism Hypertension Atrial fibrillation Surgical History Surgical History History of total knee arthroplasty History of cholecystectomy Family History Family History Mother Cancer Social History Social History Smoking status: Never smoker Second hand tobacco smoke exposure: No Alcohol intake: current Drinks per week: 14 Alcohol use details: daily, wine Substance use: never Substance use type: does not use Other substance usage details: on occasion Do You Feel Safe in your Home?: Yes Lack of Transportation: No Lack of Food: Never True Current Housing: I Have Housing Concerned About Future Housing: No Difficulty Paying Gas/Electric Bills: No Difficulty Paying for Meds: No Currently Unemployed: No Education: High School Diploma/GED Difficulty w/ Childcare or Family Care: No Living arrangements: alone Additional living arrangements comments: Son and sister both live few blocks away Gender identity (if verbalized by the patient): Male Sexual Orientation (if Verbalized by the Patient): Straight or Heterosexual Spiritual care concerns: No Exam 2 Narrative: GENERAL: Well appearing, well-nourished, non-toxic, in no acute distress. HEAD: Normocephalic, atraumatic. NECK: Supple. No adenopathy, no masses. RESPIRATORY: Airway patent, respirations nonlabored. Clear to auscultation bilaterally, no rales, rhonchi, wheezing. CARDIOVASCULAR: Regular rate and rhythm without murmurs, rubs, or gallops. Peripheral pulses 2+ and equal bilaterally. ABDOMINAL: Soft, tender in RUQ and RLQ, distended, no hepatosplenomegaly. N ormoactive BS all four quadrants. + Green's sign MUSCULOSKELETAL: Moves all extremities. Strength/ROM intact without gross deformities. SKIN: Warm, dry, normal color. No rashes. NEURO: A&O X3. Speech clear. Cranial nerves II-XII grossly intact. No ataxic movements. PSYCHIATRIC: Appropriate mood and affect. Normal interaction. Course Vital Signs Vital signs: Vital Signs Temperature 36.4 C 01/19/25 08:45 Pulse Rate 95 01/19/25 08:45 Respiratory Rate 16 01/19/25 08:45 Blood Pressure 119/85 01/19/25 08:45 Pulse Oximetry 100 01/19/25 08:45 Oxygen Delivery Room Air 01/19/25 08:45 Temperature 36.4 C 01/19/25 08:45 Pulse Rate 74 01/19/25 14:23 Respiratory Rate 18 01/19/25 14:23 Blood Pressure 104/65 01/19/25 14:23 Pulse Oximetry 100 01/19/25 14:23 Oxygen Delivery Room Air 01/19/25 08:45 MDM - Male Genitourinary MDM Narrative Medical decision making narrative: Patient is a 79-year-old male who presents to the ER with a 1 week history of blood in his urine and abdominal pain. He reports he had a colonoscopy approximately 2 weeks ago and it showed no acute abnormalities. Patient reports he is having difficulty urinating, but denies clots. He reports he is on Xarelto for a history of DVTs, PE, and atrial fibrillation. Patient also endorses a history of a gangrenous gallbladder, multiple joint replacements, and multiple hospital stays. He also endorses a history of massive diarrhea after receiving his COVID vaccine last week. Patient also endorses he has recently lost 40 lb inadvertently. He denies chest pain, shortness of breath, recent fevers, back pain. Labs Ordered: CBC, CMP, UA, lipase, troponin, INR, PTT Imaging Ordered: CT abdomen pelvis Medications Ordered: 2 L normal saline IV bolus, pt rates pain 1/10-denies need for pain medication Results: Pt's CT scan indicates 1. No evidence of appendicitis, diverticulitis or intestinal obstruction. 2. Bilateral ureteric stones with bilateral hydronephrotic changes. Bilateral kidney stones. 3. Ascites. 4. Underfilled urinary bladder with thickened wall. Evaluation for cystitis advised. Diagnosis: UTI, LISA, kidney stones Consults: urology Patient Education/Shared MDM: Results shared with patient. He is in agreement for plan of admission to hospital. 1440-Spoke with Lupe hospitalist. She is in agreement to accept patient to the hospital. Differential Diagnosis Differential diagnosis: Likely urinary tract infection, urethritis, prostatitis, acute retention of urine and other (kidney stone, LISA) Lab Data Attestation: I reviewed the patient's lab results. 01/19/25 10:06 01/19/25 10:06 Labs: Lab Results 01/19/25 01/19/25 Range/Units 10:06 13:30 WBC 8.6 (4.5-10.0) K/mm3 RBC 2.85 L (4.6-6.20) M/mm3 Hgb 10.3 L (14.0-18.0) g/dL Hct 30.8 L (42.0-52.0) % MCV 108.1 H (80-100) fl MCH 36.1 H (26-34) pg MCHC 33.4 (32-36) g/dl RDW 15.7 H (11.5-14.5) % Plt Count 203 (150-375) k/mm3 MPV 10.3 (7.4-10.4) fl Immature Gran % (Auto) 0.3 (0-0.5) % Neut % (Auto) 77.6 H (45.5-73.1) % Lymph % (Auto) 10.3 L (18.3-44.2) % Kendall % (Auto) 9.1 H (2.6-8.5) % Eos % (Auto) 1.7 (0-4.4) % Baso % (Auto) 1.0 (0.2-1.2) % Lymph # (Auto) 0.89 L (0.9-3.2) K/mm3 Kendall # (Auto) 0.8 H (0.1-0.6) K/mm3 Eos # (Auto) 0.2 (0-0.3) K/mm3 Baso # (Auto) 0.1 (0.0-0.1) K/mm3 Abs Immat Gran (auto) 0.03 (0.00-0.031) K/mm3 Absolute Neuts (auto) 6.7 (1.3-6.7) K/mm3 Absolute Nucleated RBC 0.000 (0.0-0.012) K/mm3 Band Neutrophils % Not Reportable Nucleated RBC % 0.0 (0.0-0.2) % Platelet Estimate Adequate (Adequate) Hypochromasia 1+ Macrocytosis 1+ (NORMAL) Schistocytes None seen PT 32.2 H (11.1-14.7) Seconds INR 3.1 APTT 45.7 H (22.3-36.8) Seconds Sodium 137 (137-145) mmol/L Potassium 4.3 (3.4-5.0) mmol/L Chloride 105 (98-107) mmol/L Carbon Dioxide 22 (22-30) mmol/L Anion Gap 10 (4-12) mmol/L BUN 41 H (9-20) mg/dL Creatinine 3.57 H (0.7-1.3) mg/dL Estim Creat Clear Calc 15 ml/min Estimated GFR 17 L (59 - ) Glucose 104 (65-110) mg/dL Calcium 7.8 L (8.4-10.2) mg/dL Total Bilirubin 1.6 H (0.2-1.3) mg/dL AST 28 (17-59) U/L ALT 17 (6-50) U/L Alkaline Phosphatase 198 H (38-126) U/L Troponin I 0.020 (0.000-0.034) ng/mL C-Reactive Protein 17.3 H (<1.0) mg/dL Total Protein 6.0 L (6.3-8.2) g/dL Albumin 2.7 L (3.5-5.1) g/dL Lipase 34 (23-300) U/L Vitamin B12 921.0 (239-931) pg/mL Folate > 20.0 H (2.76->20) ng/mL Urine Color Light brown H (Yellow) Urine Appearance Turbid H (Clear) Urine pH 5.0 (5.0-9.0) Ur Specific [place] 1.019 (1.001-1.035) Urine Protein 2+ H (Negative) mg/dL Urine Glucose (UA) Negative (Negative) mg/dL Urine Ketones Negative (Negative) mg/dL Ur Blood (Man) 3+ H (Negative) Urine Nitrate Negative (Negative) Urine Bilirubin 1+ H (Negative) Urine Urobilinogen 1.0 (<2.0) mg/dL Add Ur Microanalysis Reviewed Leukocyte Esterase Rfl 2+ H (Negative) ONI/UL Urine RBC 51-100 H (0-2) /hpf Urine WBC 6-10 H (0-3) /hpf Ur Squamous Epith Cells Few (Few) /hpf Urine Bacteria None seen /hpf Urine Casts 11-20 Imaging Data Attestation: I personally reviewed and interpreted this imaging study as follows: Radiologist's impression: Impressions Abdomen/Pelvis CT 01/19/25 10:44 IMPRESSION: 1. No evidence of appendicitis, diverticulitis or intestinal obstruction. 2. Bilateral ureteric stones with bilateral hydronephrotic changes. Bilateral kidney stones. 3. Ascites. 4. Underfilled urinary bladder with thickened wall. Evaluation for cystitis advised. Discharge Plan Discharge Clinical Impression: Urinary tract infection, Acute retention of urine, Acute kidney injury, Blood in urine, Kidney calculus Patient Disposition: Still a Patient Condition: Stable
--- NOTE | 2025-01-19 09:47 | ECG_ITS ---
Test Date: 2025-01-19 10:28:19 Measurements Intervals [place] Rate: 85 P: 0 ME: 0 QRS: -77 QRSD: 164 T: 48 QT: 450 QTc: 538 Interpretive Statements ATRIAL FIBRILLATION WITH ABERRANT CONDUCTION OR VENTRICULAR PREMATURE COMPLEXES RIGHT BUNDLE BRANCH BLOCK [120+ ms QRS DURATION, UPRIGHT V1, 40+ ms S IN I/aVL/V4/V5/V6] LEFT ANTERIOR FASCICULAR BLOCK [QRS AXIS <= -45, QR IN I, RS IN II] Compared to ECG 05/05/2024 09:52:03 Sinus bradycardia no longer present Electronically Signed On 01-20-2025 15:56:18 DIRECTOR OF OPERATIONS FOR THERAPY by Kamla Llanes M.D.
[2025-01-19 10:21] LABS: Basophils Absolute Auto 0.1 K/mm3 (0.0-0.1); Eosinophils Absolute Auto 0.2 K/mm3 (0-0.3); Eosinophils Percent Auto 1.7 % (0-4.4); Hematocrit 30.8 % (42.0-52.0); Hemoglobin 10.3 g/dL (14.0-18.0); Immature Granulocyte Absolute 0.03 K/mm3 (0.00-0.031); Immature Granulocyte Percent A 0.3 % (0-0.5); Lymphocytes Absolute Auto 0.89 K/mm3 (0.9-3.2); Lymphocytes Percent Auto 10.3 % (18.3-44.2); Mean Corpuscular HGB Conc 33.4 g/dl (32-36); Mean Corpuscular Hemoglobin 36.1 pg (26-34); Mean Corpuscular Volume 108.1 fl (80-100); Mean Platelet Volume 10.3 fl (7.4-10.4); Monocytes Absolute Auto 0.8 K/mm3 (0.1-0.6); Monocytes Percent Auto 9.1 % (2.6-8.5); Neutrophils Absolute Auto 6.7 K/mm3 (1.3-6.7); Neutrophils Percent Auto 77.6 % (45.5-73.1); Platelet Count Result 203 k/mm3 (150-375); Red Blood Count 2.85 M/mm3 (4.6-6.20); Red Cell Distribution Width 15.7 % (11.5-14.5); White Blood Count 8.6 K/mm3 (4.5-10.0)
--- OUTSIDE RECORDS SUMMARY | 2025-01-19 10:23 | XMS_ITS | Clinical Summary ---
Author Organization [facility] Address [address] [place] [address] Phone Care Team Providers Care Customer Consulting Manager Name Role Phone Wilver Maldonado DO [...] Encounters Date Type Department Care Team Description 01/06/2025 External Device Data STL ABSTRACTION Provider, Abstract 12/17/2024 Orders Only [facility] On[facility]ology - [place] [address] [place] [address] Sravan Le MD 12/15/2024 Orders Only [facility] - [place] [address] [place] [address] Sravan Le MD 12/12/2024 Orders Only [facility]ology - [place] [address] [place] [address] Sravan Le MD 12/10/2024 External Device Data [...] on file Legal Sex Male 9:11 AM [employer] Gender Identity Not on file Sexual Orientation [...] Care Team (Late st Contact Info) Description 04/14/2025 3:45 PM CDT Office Visit [facility] - [place] [address] [place] [address] Sravan Le MD [address] [facility] [address] [place] [address] Health Maintenance Due Date Last Done Comments DTAP/TDAP/TD VACCINES (1 - Tdap) 1965 ZOSTER VACCINE (1 of 2) 1996 PNEUMOCOCCAL VACCINE 50+ YEA RS (2 of 2 - PPSV23) [...] TESTOSTERONE FREE Routine 12/10/2024 2:2 8 PM [employer] COMPREHENSIVE METABOLIC PANEL Routine 12/10/2024 1:56 PM [employer] CBC WITH DIFFERENTIAL Routine 12/10/2024 10:31 AM [employer] from Last 3 Months Results * TESTOSTERONE FREE (12/10/2024 2:28 PM [employer]) Blood Sravan Le MD CHEMISTRY ORDERABLES Final Resu lt * COMPREHENSIVE METABOLIC PANEL (12/10/2024 1:56 PM [employer]) Blood Sravan Le MD CHEMISTRY ORDERABLES Final Resu lt * CBC WITH DIFFERENTIAL (12/10/2024 10:31 AM [employer]) Blood Sravan Le MD HEMATOLOGY ORDERABLES Final Res ult from Last 3 Months Insurance MEDICARE PART A AND B MEDICARE PART A AND B [facility] [id number] Care Teams Customer Consulting Manager Relationship Specialty Start Date End Date Wilver Maldonado DO [address] [facility] [address] [place] [address] PCP - General Internal Medicine 07/02/23
--- OUTSIDE RECORDS SUMMARY | 2025-01-19 10:23 | XMS_ITS | Clinical Summary ---
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 Gender Identity Not on file Sexual Orientation Not on file Last Filed Vital Signs Vital Sign Reading Time Taken Comments Blood Pressure 106/50 12/28/2016 7:00 AM ORACLE HYPERION CONSULTANT Pulse 61 12/28/2016 7:00 AM ORACLE HYPERION CONSULTANT Temperature 37.1 C (98.8 F) 12/28/2016 7:00 AM ORACLE HYPERION CONSULTANT Respiratory Rate 20 12/28/2016 7:00 AM ORACLE HYPERION CONSULTANT Oxygen Saturation 97% 12/28/2016 9:1 5 AM ORACLE HYPERION CONSULTANT at rest and 96% with activity Inhaled Oxygen Concentration - - Weight 98.4 kg (217 lb) 12/25/2016 5:14 PM ORACLE HYPERION CONSULTANT Height 170.2 cm (5' 7 ) 12/25/2016 5:14 PM ORACLE HYPERION CONSULTANT Body Mass Index 33.99 12/25/2016 5:14 PM ORACLE HYPERION CONSULTANT Plan of Treatment Health Maintenance Due Date [...] this topic Medical Devices Implanted Type Area Ramp And Cargo Supervisor Device Identifier Shelf Expiration Date Model / Serial / Lot Cmnt Bn Endrn Sst Gnta 40gm Hvisc - [id number] Implanted:Qty: 2 on 12/25/2016 by Diego Diaz MD at [facility] IMPLANT Right: Knee JNJ / [employer] 05/18/2018 [id number] / / [id number] Implant Knee Patella Attune Medial Dome - [id number] Implanted:Qty: 1 on 12/25/2016 by Diego Diaz MD at [facility] IMPLANT Right: Knee [employer] / [employer] 09/18/2021 [id number] / / [id number] Attune Femoral Posterior Stabilized Implanted:Qty: 1 on 12/25/2016 by Diego Diaz MD at [facility] Right: Knee [employer] 02/16/2026 [id number] / / [id number] Attune Tibial Base Rotating Platform Implanted:Qty: 1 on 12/25/2016 by Diego Diaz MD at [facility] Right: Knee [employer] 11/18/2026 [id number] / / [id number] Attune Tibial Insert Rotating Platform Posterior Stabilized Implanted:Qty: 1 on 12/25/2016 by Diego Diaz MD at [facility] Right: Knee [employer] 09/18/2020 [id number] / / [id number] Insurance MEDICARE [facility] Advance Directives Documents on File Type Date Recorded 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 PRE-ARREST: Use entire range of life support measures to stabilize the patient. Care Teams Cnp Relationship Specialty Start Date End Date Gerry Cruz MD [address] [place] [address] PCP - General Family Medicine 12/14/16
--- OUTSIDE RECORDS SUMMARY | 2025-01-19 10:23 | XMS_ITS | Clinical Summary ---
Author Organization [facility] [place] Address [address] [place] [address] Care Team Providers Care Chemical Equipment Controller Name Role Phone Wilver Maldonado DO Primary Care Provider [phone] Allergies Active Allergy Reactions Criticality Noted Date [...] 1 tablet (50 mcg total) by mouth standpipe tender before breakfast Active thiamine (VITAMIN B-1) 100 [...] extended release tabletIndications: Paroxysmal atrial fibrillation (CMS/HCC) ([facility]) Take 1 tablet (50 mg total) by mouth daily 30 tablet 11 12/02/19 25 2025 Active Active Problems Problem Noted Date Diagnosed Date Nonrheumatic aortic valve insufficiency 04/20/20 20 Paroxysmal atrial fibrillation ([facility]) 017 DVT (deep venous thrombosis) ([facility]) 7 Essential hypertension 07/20/2017 Pulmonary emboli 07/20/2017 Chronic anticoagulation 07/20/2017 Bradycardia 07/20/2017 Dizziness 07/20/2017 Moderate episode of recurrent major depressive d isorder 11/01/2016 Overview (02/22/2017): Moderate episode of recurrent major depressive disorder Acute cholecystitis 12/16/2015 Overview (02/22/2017): Acute cholecystitis Encounters Date Type Department Care Team Description 12/03/2024 Telephone [facility] [address] [address] Tye Kirby III, MD Scheduling Appointments 12/01/2024 Telephone [facility] Cardiology [address] [place] [address] [place] [phone] Lou Kent NP 11/28/2024 11:30 AM ENGLISH TUTOR Office Visit [facility] Cardiology [address] [place] [address] [address] [place] [phone] Lou Kent NP Paroxysmal atrial fibrillation (CMS/HCC) ([facility]); detention current use of amiodarone; Chronic anticoagulation; Lipid screening 11/28/2024 Telephone [facility]iology [address] [place] [phone] Lou Kent NP 11/06/2024 10:15 AM ENGLISH TUTOR Ancillary Procedure [address] [place] [phone] Dyspnea, unspecified type 10/29/2024 Telephone [place] [address] [place] [phone] Magnus Delong MD 10/28/[address] [place] [phone] Magnus Delong MD Fatigue; Dizziness from Last 3 Months Surgical History Surgery Date Site/Laterality Comments OTHER SURGICAL HISTORY orif rt ankle INGUINAL HERNIA REPAIR Right Inguinal Hernia repair KNEE ARTHROPLASTY Left Knee replacement LAPAROSCOPIC CHOLECYSTECTOMY 2015 Cholecystectomy, laparoscopic Medical History Medical History Date Comments Gout Gout Deep vein thrombosis (DVT) ( [facility]) ([facility]) Deep venous thrombosis Hypertension Hypertension Atrial fibrillation ([facility]) ([facility]) Atrial fibrillation; Comments: GDS 01/05/2016 - Hx Other Medical PE/DVT; Comment s: ROSALINDA 03/03/2016 - Paroxysmal atrial fibrillati on ([facility]/HCC) ([facility]) 07/20/2017 DVT (deep venous thrombosis) ([facility]) ([facility]) 07/20/2017 Pulmonary emboli ([facility]) 07/20/2017 Chronic anticoagulation 07/20/2017 Bradycardia [...] on file Legal Sex Male 8:58 PM ENGLISH TUTOR Gender Identity Not on file Sexual Orientation Not on file Obstetrics History Last Filed Vital Signs Vital Sign Reading Time Taken Comments Blood Pressure 96/60 11/28/2024 11:22 AM ENGLISH TUTOR Pulse 90 11/28/2024 11:22 AM ENGLISH TUTOR Temperature - - Respiratory Rate 12 01/20/2021 7:46 AM ENGLISH TUTOR Oxygen Saturation 98% 11/28/2024 11:22 AM ENGLISH TUTOR Inhaled Oxygen Concentration - - Weight 82.6 kg (182 lb) 11/28/2024 11:22 AM ENGLISH TUTOR Height 170.2 cm (5' 7 ) 11/28/2024 11:22 AM ENGLISH TUTOR Body Mass Index 28.51 11/28/2024 11:22 AM ENGLISH TUTOR Plan of Treatment Health Maintenance Due Date Last Done Comments Depression Screening 1945 Fall Risk Assessment 1945 Hepatitis C Screening 1945 DTaP/Tdap/Td Vaccine (1 - Tdap) 1957 Hepatitis B Screening 1964 Zoster Vaccine (1 of 2) 1996 Well Visit 65+ 2011 Pneumococcal vaccine 65+ (2 of 2 - PPSV23) 12/26/2017 12/26/2016 Influenza Vaccine (#1) 2024 12/26/2016, 2015 Procedures Procedure Name Priority Date/Time Associated Diagnosis Comments ECG 12-LEAD Routine 11/28/2024 11:32 AM ENGLISH TUTOR Paroxysmal atrial fibrillation (CMS/HCC) (HCC) POCT LIPID PANEL Routine 11/28/2024 11:3 2 AM ENGLISH TUTOR Lipid screening HEMOGLOBIN AND HEMATOCRIT Routine 11/28/2024 Chronic anticoagulation THYROID FUNCTION CASCADE Routine 11/28/2024 terminal gauger supervisor current use of amiodarone TRANSTHORACIC ECHO (TTE) COMPLETE W DOPPLER/CF WO CONTRAST Routine 11/06/2024 10:47 AM ENGLISH TUTOR Dyspnea, unspecified type from Last 3 Months Results * POCT lipid panel (11/28/2024 11:32 AM ENGLISH TUTOR) Cholesterol, POC 159 mg/dL HDL, POC 61 mg/dL Triglycerides, POC 83 mg/dL LDL Cholesterol POC 81 mg/dL Chol/HDL Ratio, POC 1.3 Non-HDL Cholesterol, POC 97 mg/dL Cholesterol Total, POC 159 mg/dL Capillary blood 11/28/2024 1 1:32 AM ENGLISH TUTOR Lou Kent NP POINT OF CARE TEST ORDERA BLES Final Result * ECG 12 lead (11/28/2024 11:32 AM ENGLISH TUTOR) 11/28/2024 11:3 2 AM ENGLISH TUTOR Lou Kent NP ECG ORDERABLES Edited Re sult - Final * Thyroid Function [place] (11/28/2024) Blood 11/28/2024 Lou Kent CASHIER ASSOCIATE LAB BLOOD ORDERABLES Marisela l Result Performing Organization Address City/[facility]/ZIP Co de Phone Number EXTERNAL LAB * (ABNORMAL) Hemoglobin and hematocrit (11/28/2024) SCRIBED Hemoglobin 12.2(A) 14.0 - 18.0 g/dL EXTERNAL LAB SCRIBED Hematocrit 36.4(A) 42.0 - 52.0 % EXTERNAL LAB Blood 11/28/2024 Lou Kent CASHIER ASSOCIATE LAB BLOOD ORDERABLES Marisela l Result Performing Organization Address [facility]/ZIP Co de Phone Number EXTERNAL LAB * TRANSTHORACIC ECHO (TTE) COMPLETE W DOPPLER/CF WO CONTRAST (11/06/2024 10:47 AM ENGLISH TUTOR) Anatomical Region Laterality Modality Ultrasound 11/06/2024 10:4 8 AM ENGLISH TUTOR Narrative 11/06/2024 12:28 PM ENGLISH TUTOR [facility] Cardiology [address], [place], [place] [id number] [address] [address] P:[phone] P:[phone] Echocardiographic Report Patient Name: MURPHY ARREAGA G : 1945 Study Date: 11/06/2024 10:48:02 AM Gender: M Tech: KEATON Location: [facility] Provider: MAGNUS DELONG Height(Cm): 170 BSA: [...] FINDINGS: Interpretation Site: Exam was interpreted at [facility]. Left Ventricle: Normal left ventricular systolic function. [...] By: Pool Campuzano MD 11/06/2024 12:27:32 PM ENGLISH TUTOR 65-70 Procedure Note Pool Campuzano MD - 11/06/2024 [facility] [address], [place] [address] [address] [facility] [address], [place] [address] P:[phone] P:[phone] Echocardiographic Report Patient Name: MURPHY ARREAGA G : 1945 Study Date: 11/06/2024 10:48:02 AM Gender: M Tech: Location: [facility] Provider: MAGNUS DELONG Height(Cm): 170 BSA: [...] FINDINGS: Interpretation Site: Exam was interpreted at [facility]. Left Ventricle: Normal left ventricular systolic function. [...] By: Pool Campuzano MD 11/06/2024 12:27:32 PM ENGLISH TUTOR 65-70 Magnus Delong MD CV ECHO PROCEDURES Final Result from Last 3 Months Insurance MEDICARE [facility] MEDICARE [employer] Care Teams Chemical Equipment Controller Relationship Specialty Start Date End Date Wilver Maldonado DO PCP - General Internal Medicine 07/12/23
--- OUTSIDE RECORDS SUMMARY | 2025-01-19 10:23 | XMS_ITS | Referral Summary ---
Author Organization [facility] [place] [facility] Address [address] [place] [address] Care Team Providers Care Revenue Collector Name Role Phone Wilver Maldonado DO Primary Care Provider [phone]- [phone] Encounters Date Type Department Care Team Description 12/03/2024 Telephone [facility] [address] [phone] Tye Kirby III, MD Scheduling Appointments 12/01/2024 Telephone [facility] Medical [facility] Cardiology [address] [place] [address] [address] [place] [phone] Lou Kent NP 11/28/2024 Telephone [facility] Cardiology [address] [place] [address] [place] [phone] Lou Kent NP 11/28/2024 11:30 AM SEWING INSPECTOR Office Visit [facility] Cardiology [address] [place] [address] [place] [phone] Lou Kent NP Paroxysmal atrial fibrillation (CMS/HCC) (HCC); terminologist current use of amiodarone; Chronic anticoagulation; Lipid screening 11/06/2024 10:15 AM SEWING INSPECTOR Ancillary Procedure [facility] Cardiology [address] [place] [address] [place] [phone] Dyspnea, unspecified type 10/29/2024 Telephone [facility] Cardiology [address] [place] [address] [place] [phone] Marlee Delong MD 10/28/2024 Telephone [facility] Medical Group Cardiology [address] [place] [address] Marlee Delong MD Fatigue; Dizziness [...] 1 tablet (50 mcg total) by mouth 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 before breakfast Active thiamine (VITAMIN B-1) 100 [...] on file Legal Sex Male 8:58 PM SEWING INSPECTOR Gender Identity Not on file Sexual Orientation Not on file Last Filed Vital Signs Vital Sign Reading Time Taken Comments Blood Pressure 96/60 11/28/2024 11:22 AM SEWING INSPECTOR Pulse 90 11/28/2024 11:22 AM SEWING INSPECTOR Temperature - - Respiratory Rate 12 01/20/2021 7:46 AM SEWING INSPECTOR Oxygen Saturation 98% 11/28/2024 11:22 AM SEWING INSPECTOR Inhaled Oxygen Concentration - - Weight 82.6 kg (182 lb) 11/28/2024 11:22 AM SEWING INSPECTOR Height 170.2 cm (5' 7 ) 11/28/2024 11:22 AM SEWING INSPECTOR Body Mass Index 28.51 11/28/2024 11:22 AM SEWING INSPECTOR Plan of Treatment Not on file Procedures Procedure Name Priority Date/Time Associated Diagnosis Comments ECG 12-LEAD Routine 11/28/2024 11:32 AM SEWING INSPECTOR Paroxysmal atrial fibrillation (CMS/HCC) (HCC) POCT LIPID PANEL Routine 11/28/2024 11:3 2 AM SEWING INSPECTOR Lipid screening HEMOGLOBIN AND HEMATOCRIT Routine 11/28/2024 Chronic anticoagulation THYROID FUNCTION CASCADE Routine 11/28/2024 terminologist current use of amiodarone TRANSTHORACIC ECHO (TTE) COMPLETE W DOPPLER/CF WO CONTRAST Routine 11/06/2024 10:47 AM SEWING INSPECTOR Dyspnea, unspecified type from Last 3 Months Results * POCT lipid panel (11/28/2024 11:32 AM SEWING INSPECTOR) Cholesterol, POC 159 mg/dL HDL, POC 61 mg/dL Triglycerides, POC 83 mg/dL LDL Cholesterol POC 81 mg/dL Chol/HDL Ratio, POC 1.3 Non-HDL Cholesterol, POC 97 mg/dL Cholesterol Total, POC 159 mg/dL Capillary blood 11/28/2024 1 1:32 AM SEWING INSPECTOR Lou Kent NP POINT OF CARE TEST ORDERA BLES Final Result * ECG 12 lead (11/28/2024 11:32 AM SEWING INSPECTOR) 11/28/2024 11:3 2 AM SEWING INSPECTOR Lou Kent NP ECG ORDERABLES Edited Re sult - Final * Thyroid Function [facility] (11/28/2024) Blood 11/28/2024 Lou Kent NP LAB [...] W DOPPLER/CF WO CONTRAST (11/06/2024 10:47 AM SEWING INSPECTOR) Anatomical Region Laterality Modality Ultrasound 11/06/2024 10:4 8 AM SEWING INSPECTOR Narrative 11/06/2024 12:28 PM SEWING INSPECTOR [facility] Medical Group Cardiology [address] [facility] [address], [place] [address] [address] [facility] [address], [place] [address] P:[phone] P:[phone] Echocardiographic Report Patient Name: MURPHY ARREAGA G : 1945 Study Date: 11/06/2024 10:48:02 AM Gender: M Tech: KEATON Location: [facility] Provider: MARLEE DELONG Height(Cm): 170 BSA: [...] FINDINGS: Interpretation Site: Exam was interpreted at [facility]. Left Ventricle: Normal left ventricular systolic [...] By: Pool Campuzano MD 11/06/2024 12:27:32 PM SEWING INSPECTOR 65-70 Procedure Note Pool Campuzano MD - 11/06/2024 [facility] Medical Group Cardiology [address] [facility] [address], [place] [address] [address] [facility] [address], [place] [address] P:[phone] P:[phone] Echocardiographic Report Patient Name: MURPHY ARREAGA G : 1945 Study Date: 11/06/2024 10:48:02 AM Gender: M Tech: KEATON Location: [facility] Provider: MARLEE DELONG Height(Cm): 170 BSA: [...] FINDINGS: Interpretation Site: Exam was interpreted at [facility]. Left Ventricle: Normal left ventricular systolic [...] By: Pool Campuzano MD 11/06/2024 12:27:32 PM SEWING INSPECTOR 65-70 Marlee Delong MD CV ECHO PROCEDURES Final Result from Last 3 Months Insurance MEDICARE [facility] MEDICARE [facility] Care Teams Revenue Collector Relationship Specialty Start Date End Date Wilver Maldonado DO PCP - General Internal Medicine 07/12/23
[2025-01-19] MEDS: SODIUM CHLORIDE 0.9% IV 1,000 ML 500 ML IV CONT (10:29)
[2025-01-19 10:30] VITALS: BP 109/63; PULSE 73; RESP 15; O2SAT 100
[2025-01-19 10:30] LABS: Alanine Aminotransferase 17 U/L (6-50); Albumin Level 2.7 g/dL (3.5-5.1); Alkaline Phosphatase 198 U/L (38-126); Anion Gap 10 mmol/L (4-12); Aspartate Amino Transferase 28 U/L (17-59); Bilirubin,Total 1.6 mg/dL (0.2-1.3); Blood Urea Nitrogen 41 mg/dL (9-20); Calcium 7.8 mg/dL (8.4-10.2); Carbon Dioxide 22 mmol/L (22-30); Chloride 105 mmol/L (98-107); Estimated CRCL calculation 15 ml/min; Estimated Glomerular Filt Rate 17; Glucose 104 mg/dL (65-110); Lipase 34 U/L (23-300); Potassium 4.3 mmol/L (3.4-5.0); Sodium 137 mmol/L (137-145)
[2025-01-19 10:47] LABS: INR 3.1; Partial Thromboplastin Time 45.7 Seconds (22.3-36.8); Prothrombin Time 32.2 Seconds (11.1-14.7)
[2025-01-19 10:55] LABS: Hypochromasia 1+; Macrocytosis 1+ (NORMAL); Platelet Estimate Adequate (Adequate); Schistocytes None Seen
[2025-01-19 12:02] VITALS: BP 111/67; PULSE 72; RESP 14; O2SAT 100
[2025-01-19 14:05] LABS: Add Urine Microscopic? YES; Appearance Urine Turbid (Clear); Bacteria Urine None Seen /hpf; Bilirubin Urine 1+ (Negative); Blood Urine 3+ (Negative); Glucose Urine UA Negative (Negative); Ketones Urine Negative (Negative); Leukocyte Esterase Ur 2+ LEU/UL (Negative); Need Manual Microscopic Reviewed; Nitrate Urine Negative (Negative); Protein Urine 2+ mg/dL (Negative); RBC Urine 51-100 /hpf (0-2); Specific Grav Ur 1.019 (1.001-1.035); Squamous Epithelial Cell Urine Few /hpf (Few)
[2025-01-19 14:07] LABS: Color Urine Light Brown (Yellow)
[2025-01-19] MEDS: SODIUM CHLORIDE 0.9% IV 1,000 ML 999 ML IV CONT (14:22)
[2025-01-19 14:23] VITALS: BP 104/65; PULSE 74; RESP 18; O2SAT 100
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
[2025-01-19 15:56] LABS: CRP 17.3 mg/dL (<1.0)
[2025-01-19 16:00] LABS: Lactic Acid Reflex 0.8 mmol/L (0.7-2.0)
[2025-01-19] MEDS: SODIUM CHLORIDE 0.9% IV 1,000 ML 125 ML IV CONT (16:16)
[2025-01-19] MEDS: PANTOPRAZOLE 40 MG TABLET PO (16:16)
[2025-01-19 17:16] LABS: Folic Acid > 20.0 ng/mL (2.76->20)
--- NOTE | 2025-01-19 17:36 | ADMGEN ---
This patient, Murphy Contreras, was admitted to [facility] Surg Room 329-01. Patient/family oriented to hospital policies and general routines including ID bracelet, bed and alarms, visiting hours, pain management, procedures, bathroom and other care routines, personal items, smoking policy, room service/diet, and visiting hours. Information on how to activate the Rapid Response Team has been discussed. Patient/Family are encouraged to report perceived risks to care and to ask questions if they do not understand what they are told or what they should do.
[2025-01-19 17:49] LABS: Total Triiodothyronine (T3) 0.95 NG/ML (0.97-1.69)
[2025-01-19 20:10] VITALS: PULSE 74; RESP 18; O2SAT 100
[2025-01-19 20:35] VITALS: BP 128/69; PULSE 69; RESP 20; TEMP 36.5; O2SAT 99
[2025-01-19] MEDS: ONDANSETRON INJ 4 MG/2 ML VIAL IV PUSH (21:00)
[2025-01-20] VITALS (8 sets, daily range): BP systolic 91–130; BP diastolic 52–77; PULSE 54–86; RESP 14–18; TEMP 35.7–36.7; O2SAT 95–100; BMI 28.3
[2025-01-20] MEDS: HYDROcodone/acetaminophen (*CRX) 5-325 MG TABLET 1 TAB PO ×2 (00:43→17:59)
[2025-01-20] MEDS: SODIUM CHLORIDE 0.9% IV 1,000 ML 125 ML IV CONT ×2 (00:45→16:24)
[2025-01-20] MEDS: MORPHINE SULFATE (*CRX) 2 MG/ML INJ IV PUSH ×3 (03:43→20:49)
[2025-01-20] MEDS: ONDANSETRON INJ 4 MG/2 ML VIAL IV PUSH ×2 (03:44→09:45)
[2025-01-20] MEDS: LEVOTHYROXINE SODIUM 50 MCG TABLET PO (05:44)
[2025-01-20 06:33] LABS: Basophils Absolute Auto 0.1 K/mm3 (0.0-0.1); Basophils Percent Auto 0.8 % (0.2-1.2); Eosinophils Absolute Auto 0.3 K/mm3 (0-0.3); Eosinophils Percent Auto 3.9 % (0-4.4); Hematocrit 28.9 % (42.0-52.0); Hemoglobin 9.5 g/dL (14.0-18.0); Immature Granulocyte Absolute 0.02 K/mm3 (0.00-0.031); Immature Granulocyte Percent A 0.3 % (0-0.5); Lymphocytes Absolute Auto 0.93 K/mm3 (0.9-3.2); Mean Corpuscular HGB Conc 32.9 g/dl (32-36); Mean Corpuscular Hemoglobin 35.7 pg (26-34); Mean Corpuscular Volume 108.6 fl (80-100); Mean Platelet Volume 10.3 fl (7.4-10.4); Monocytes Absolute Auto 0.6 K/mm3 (0.1-0.6); Monocytes Percent Auto 8.5 % (2.6-8.5); Neutrophils Absolute Auto 5.3 K/mm3 (1.3-6.7); Neutrophils Percent Auto 73.5 % (45.5-73.1); Platelet Count Result 196 k/mm3 (150-375); Red Blood Count 2.66 M/mm3 (4.6-6.20); Red Cell Distribution Width 15.7 % (11.5-14.5); White Blood Count 7.2 K/mm3 (4.5-10.0)
[2025-01-20 06:48] LABS: Alanine Aminotransferase 14 U/L (6-50); Albumin Level 2.5 g/dL (3.5-5.1); Alkaline Phosphatase 178 U/L (38-126); Anion Gap 10 mmol/L (4-12); Aspartate Amino Transferase 24 U/L (17-59); Bilirubin,Total 1.1 mg/dL (0.2-1.3); Blood Urea Nitrogen 37 mg/dL (9-20); Calcium 7.1 mg/dL (8.4-10.2); Carbon Dioxide 18 mmol/L (22-30); Chloride 110 mmol/L (98-107); Estimated CRCL calculation 18 ml/min; Estimated Glomerular Filt Rate 21; Glucose 103 mg/dL (65-110); Potassium 3.6 mmol/L (3.4-5.0); Sodium 138 mmol/L (137-145)
--- NOTE | 2025-01-20 06:53 | P.PNIM_ITS ---
Progress Note: A&P Assessment and Plan (1) Blood in urine: Code(s): R31.9 - Hematuria, unspecified Status: Acute Assessment and Plan: * hold Xarelto, INR 3.1 * CT of the abdomen and pelvis was negative for appendicitis, diverticulitis, or intestinal obstruction but did show bilateral ureteric stones with bilateral hydronephrotic changes, urinary bladder with thickened wall suggestive of cystitis, ascites, 3 mm stone in the right upper ureter, stones in the left lower ureter with the largest measuring 5 mm * urology consulted with plans for cystoscopy today * continue pain control * SCDs for now (2) Hydronephrosis: Code(s): N13.30 - Unspecified hydronephrosis Status: Acute Assessment and Plan: see above plan of care (3) Kidney calculus: Code(s): N20.0 - Calculus of kidney Status: Acute Assessment and Plan: see above plan of care (4) Acute kidney injury: Code(s): N17.9 - Acute kidney failure, unspecified Status: Acute Assessment and Plan: * creatinine 3.57, EGFR 17 * baseline creatinine 1.1-1.3, EGFR 59 to greater than 60 * [place] related to above * patient was given 1 L of normal saline while in the ED * Cr 2.97 today * continue maintenance IV fluids for now. Monitor renal function, electrolytes and UOP. (5) Abnormal urinalysis: Code(s): R82.90 - Unspecified abnormal findings in urine Status: Acute Assessment and Plan: * UA shown might brown turbid appearance, 2+ urine protein, 3+ urine blood, 1+ urine bilirubin, 2+ leukocyte, 51-100 urine RBC, 6-10 urine WBC, 11-20 urine cast. 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 * Holding losartan and hydrochlorothiazide given the LISA (8) Hypothyroid: Qualifiers: Hypothyroidism type: acquired Qualified Code(s): E03.9 - Hyp othyroidism, unspecified Code(s): E03.9 - Hypothyroidism, unspecified Status: Chronic Assessment and Plan: * TSH 10.5. FT4 elevated at 2.9. * Related to Synthroid but TSH not suppressed; could be related to sporadic compliance * Hold Synthroid since the elevated FT4 is the active hormone (9) GERD (gastroesophageal reflux disease): Code(s): K21.9 - Gastro-esophageal reflux disease without esophagitis Status: Chronic Assessment and Plan: * normally on omeprazole 20 mg daily will substitute with Protonix (10) Anemia: Qualifiers: Anemia type: unspecified type Qualified Code(s): D64.9 - Anemia, unspecified Code(s): D64.9 - Anemia, unspecified Status: Chronic Assessment and Plan: * hemoglobin 10.3 * appears to be chronic macrocytic anemia. * iron level 94, ferritin 137 on 12/10/2024 * B12 and folate normal * Hgb 9.5 today. Follow (11) Chronic alcohol abuse: Code(s): F10.10 - Alcohol abuse, uncomplicated Status: Acute Assessment and Plan: * reports drinking 1-2 glasses of wine nightly * no history alcohol withdrawal Plan DVT prophylaxis - SCDs Code status - full Subjective Date/time seen: 01/20/25 06:53 Interval history: 79yo male with HTN, hypothyroidism, CHEO, DVT, PE, Atrial fibrillation on Xarelto since 2016, depression, GERD, alcohol abuse, Vitamin D deficiency who presented to the hospital with complaints of Hematuria. No CP or SOB. Complains of lower abd pain. No n/v. Not voiding much. Passing flatus. Exam Narrative: AF 97.5 130/74 54 18 98% ra Gen - NARD Chest - CTA bilaterally CV - irregularly irregular. Abd - soft, ND, bladder distended Back - bilateral CVA tenderness. Ext - no pedal edema Psych - nml mood Skin - Warm and dry Objective Data Vital Signs Vital Signs: Vital Signs - 24 hr 01/19/25 08:45 01/19/25 10:30 01/19/25 12:02 Temperature 97.6 F Pulse Rate 95 73 72 Respiratory Rate 16 15 14 Blood Pressure 119/85 109/63 111/67 Pulse Oximetry 100 100 100 Oxygen Delivery Room Air 01/19/25 14:23 01/19/25 20:10 01/19/25 20:35 Temperature 97.7 F Pulse Rate 74 74 69 Respiratory Rate 18 18 20 Blood Pressure 104/65 128/69 Pulse Oximetry 100 100 99 Oxygen Delivery Room Air 01/20/25 04:35 Temperature 97.5 F L Pulse Rate 54 L Respiratory Rate 18 Blood Pressure 130/74 Pulse Oximetry 98 Oxygen Delivery Intake/Output Intake/Output: Intake & Output 01/17/25 01/18/25 01/19/25 01/20/25 23:59 23:59 23:59 23:59 Intake Total 2050.0 1050 Output Total 200 Balance 2050.0 850 Meds/Results Medications: Active Medications Generic Name Dose Route Start Last Admin Trade Name Freq PRN Reason Stop Dose Admin Acetaminophen 650 mg 01/19/25 14:48 Acetaminophen 325 Mg Tablet PO Q4H PRN Mild Pain (1-3) or Fever Hydrocodone Bitart/Acetaminophen 1 tab 01/19/25 14:48 01/20/25 00:43 Hydrocodone/Acetaminophen (*Crx) 5-325 Mg Tablet PO 1 tab Q4H PRN Administration Moderate Pain (4-6) Sodium Chloride 1,000 mls @ 125 mls/hr 01/19/25 14:40 01/20/25 00:45 Normal Saline Iv IV CONT 125 mls/hr .Q8H PABLO Administration Ceftriaxone Sodium 1 gm in 50 mls @ 100 mls/hr 01/20/25 09:00 Rocephin 1 Gm/Ns 50 Ml IVPB DAILY PABLO Levothyroxine Sodium 50 mcg 01/20/25 06:30 01/20/25 05:44 Levothyroxine Sodium 50 Mcg Tablet PO 50 mcg DAILY@0630 PABLO Administration Metoprolol Succinate 50 mg 01/20/25 09:00 Metoprolol Succinate Ext Rel 50 Mg Tabcr PO DAILY PABLO Morphine Sulfate 2 mg 01/19/25 14:38 01/20/25 03:43 Morphine Sulfate (*Crx) 2 Mg/Ml Inj IV PUSH 2 mg Q2H PRN Administration Pain Rated 7-10 Multivitamins Therapeutic 1 tablet 01/20/25 09:00 Multivitamins Therapeutic Tab (*Bkc) PO DAILY [facility] Ondansetron HCl 4 mg 01/19/25 14:48 01/20/25 03:44 Ondansetron Inj 4 Mg/2 Ml Vial IV PUSH 4 mg Q6H PRN Administration Nausea And Vomiting Pantoprazole Sodium 40 mg 01/19/25 15:10 01/19/25 16:16 Pantoprazole 40 Mg Tablet PO 40 mg QAM [facility] Administration Tamsulosin HCl 0.4 mg 01/20/25 09:00 Tamsulosin Hcl 0.4 Mg Capsule PO QAM [facility] Vitamin D 5,000 units 01/20/25 09:00 Cholecalciferol 5,000 Units Tablet PO DAILY [facility] Radiology Results: ITS Impressions Abdomen/Pelvis CT 01/19/25 10:44 IMPRESSION: 1. No evidence of appendicitis, diverticulitis or intestinal obstruction. 2. Bilateral ureteric stones with bilateral hydronephrotic changes. Bilateral kidney stones. 3. Ascites. 4. Underfilled urinary bladder with thickened wall. Evaluation for cystitis advised. Abdomen X-Ray 01/19/25 18:39 IMPRESSION: Nonspecific, nonobstructive bowel gas pattern. Poor visualization of the CT findings of obstructing and nonobstructing calculi, as detailed above. Labs Labs: Laboratory Results - last 24 hr 01/19/25 01/19/25 01/19/25 10:06 13:30 15:36 WBC 8.6 RBC 2.85 L Hgb 10.3 L Hct 30.8 L MCV 108.1 H MCH 36.1 H MCHC 33.4 RDW 15.7 H Plt Count 203 MPV 10.3 Immature Gran % (Auto) 0.3 Neut % (Auto) 77.6 H Lymph % (Auto) 10.3 L [place] % (Auto) 9.1 H Eos % (Auto) 1.7 Baso % (Auto) 1.0 Lymph # (Auto) 0.89 L [place] # (Auto) 0.8 H Eos # (Auto) 0.2 Baso # (Auto) 0.1 Abs Immat Gran (auto) 0.03 Absolute Neuts (auto) 6.7 Absolute Nucleated RBC 0.000 Band Neutrophils % Not Reportable Nucleated RBC % 0.0 Platelet Estimate Adequate Hypochromasia 1+ Macrocytosis 1+ Schistocytes None seen PT 32.2 H INR 3.1 APTT 45.7 H Sodium 137 Potassium 4.3 Chloride 105 Carbon Dioxide 22 Anion Gap 10 BUN 41 H Creatinine 3.57 H Estim Creat Clear Calc 15 Estimated GFR 17 L Glucose 104 Lactic Acid 0.8 Calcium 7.8 L Total Bilirubin 1.6 H AST 28 ALT 17 Alkaline Phosphatase 198 H Troponin I 0.020 C-Reactive Protein 17.3 H Total Protein 6.0 L Albumin 2.7 L Lipase 34 Vitamin B12 921.0 Folate > 20.0 H TSH (Reflex) 10.500 H Free T4 Cancelled Total T3 Urine Color Light brown H Urine Appearance Turbid H Urine pH 5.0 Ur Specific [place] 1.019 Urine Protein 2+ H Urine Glucose (UA) Negative Urine Ketones Negative Ur Blood (Man) 3+ H Urine Nitrate Negative Urine Bilirubin 1+ H Urine Urobilinogen 1.0 Add Ur Microanalysis Reviewed Leukocyte Esterase Rfl 2+ H Urine RBC 51-100 H Urine WBC 6-10 H Ur Squamous Epith Cells Few Urine Bacteria None seen Urine Casts 11-20 01/19/25 01/20/25 15:36 06:07 WBC RBC Hgb Hct MCV MCH MCHC RDW Plt Count MPV Immature Gran % (Auto) Neut % (Auto) Lymph % (Auto) [place] % (Auto) Eos % (Auto) Baso % (Auto) Lymph # (Auto) [place] # (Auto) Eos # (Auto) Baso # (Auto) Abs Immat Gran (auto) Absolute Neuts (auto) Absolute Nucleated RBC Band Neutrophils % Nucleated RBC % Platelet Estimate Hypochromasia Macrocytosis Schistocytes PT INR APTT Sodium 138 Potassium 3.6 Chloride 110 H Carbon Dioxide 18 L Anion Gap 10 BUN 37 H Creatinine 2.97 H Estim Creat Clear Calc 18 Estimated GFR 21 L Glucose 103 Lactic Acid Calcium 7.1 L Total Bilirubin 1.1 AST 24 ALT 14 Alkaline Phosphatase 178 H Troponin I C-Reactive Protein Total Protein 6.0 L Albumin 2.5 L Lipase Vitamin B12 Folate TSH (Reflex) Free T4 2.90 H Total T3 0.95 L Urine Color Urine Appearance Urine pH Ur Specific [place] Urine Protein Urine Glucose (UA) Urine Ketones Ur Blood (Man) Urine Nitrate Urine Bilirubin Urine Urobilinogen Add Ur Microanalysis Leukocyte Esterase Rfl Urine RBC Urine WBC Ur Squamous Epith Cells Urine Bacteria Urine Casts
[2025-01-20 07:04] LABS: Anisocytosis 1+; Platelet Estimate Adequate (Adequate)
[2025-01-20 07:05] LABS: Schistocytes None Seen
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
--- NOTE | 2025-01-20 07:37 | WPDHPUPDATE1 ---
History and Physical Update Update Date/Time: 01/20/25 07:37 History and Physical has been reviewed, including an updated exam of the patient. There are NO changes in the patient's condition. Risks, benefits, and alternatives have been discussed and questions answered. Patient agrees to proceed with procedure.
[2025-01-20] MEDS: METOPROLOL SUCCINATE EXT REL 50 MG TABCR PO (09:41)
[2025-01-20] MEDS: TAMSULOSIN HCL 0.4 MG CAPSULE PO (09:41)
--- NOTE | 2025-01-20 12:19 | PC.NURSE ---
To OR per [ ], IV [ ]. Report given to [andreina].
[2025-01-20] MEDS: LACTATED RINGERS 1,000 ML 30 ML IV CONT ×2 (12:40→15:20)
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
[2025-01-20] MEDS: LIDOCAINE 2% GEL UROJET 10 ML PKG MUCOUS MEM (14:22)
--- NOTE | 2025-01-20 15:15 | W.PM.PROC2 ---
Procedure Note - Detailed Date of Procedure 01/20/25 Pre-op Diagnosis Bilateral ureteral stones Post-op Diagnosis Same Procedure Performed Cystoscopy, bilateral retrogrades, bilateral ureteroscopy with stone extraction, bilateral ureteral stent placement 4.8 [place] contour Surgeon Bhavesh Rick MD Anesthesia General Description of Procedure Patient is taken the operative suite correctly identified. Once anesthesia was obtained was placed in dorsal lithotomy position and prepped and draped usual sterile fashion. Twenty-two S[place] scope was inserted the bladder direct vision. Does have somewhat of enlarged prostate and median lobe. The bladder itself is 1 to 2+ trabeculation. Left ureteral orifice was cannulated with a guidewire dilated with an 8/10 dilator. Rigid ureteral scope was inserted and multiple stones were seen. And escape basket was used to retrieve the multiple stones. The largest were sent for analysis. Pyelogram was then performed confirm placement of the stent. 4.8 [place] contour stent was placed with the proximal end coiled in the renal pelvis and the distal in the bladder. The right ureteral orifice was somewhat difficult to enter. I needed to place an angled Glidewire and then placed a ureteral catheter over. Pyelogram revealed somewhat stenotic mid ureter. I was able to manipulate the angled Glidewire up to the kidney. I dilated with an 8/10 dilator. Rigid ureteral scope was then inserted. It was noted that the wire was somewhat submucosal. I reposition the wire. Again multiple stones were retrieved from the right ureter. Pyelogram was then performed confirm placement of this stent in the renal pelvis. 4.8 [place] contour stent was then placed with the proximal coiled in renal pelvis and the distal in the bladder. Bladder was drained. 2% viscous lidocaine was inserted into urethra. The plan will be to leave the stents in for minimum of 2-3 weeks to let the area heal. This completes dictation. Please send a copy of op note to my office. Estimated Blood Loss 0 Urine Output 100 Drains Yes Packing No Pathology Yes Condition Stable Disposition PACU
--- NOTE | 2025-01-20 16:10 | PC.NURSE ---
Returned from OR per [ ]. Report received from [TD].
[2025-01-21] VITALS (7 sets, daily range): BP systolic 91–104; BP diastolic 57–61; PULSE 57–94; RESP 16–18; TEMP 36.8–37.1; O2SAT 96–100
[2025-01-21] MEDS: SODIUM CHLORIDE 0.9% IV 1,000 ML 125 ML IV CONT (01:37)
[2025-01-21] MEDS: MORPHINE SULFATE (*CRX) 2 MG/ML INJ IV PUSH ×4 (01:42→22:06)
[2025-01-21] MEDS: LEVOTHYROXINE SODIUM 50 MCG TABLET PO (05:30)
[2025-01-21 06:26] LABS: Alanine Aminotransferase 13 U/L (6-50); Albumin Level 2.2 g/dL (3.5-5.1); Alkaline Phosphatase 155 U/L (38-126); Anion Gap 7 mmol/L (4-12); Aspartate Amino Transferase 21 U/L (17-59); Basophils Absolute Auto 0.1 K/mm3 (0.0-0.1); Basophils Percent Auto 1.2 % (0.2-1.2); Bilirubin,Total 0.8 mg/dL (0.2-1.3); Blood Urea Nitrogen 36 mg/dL (9-20); Calcium 6.8 mg/dL (8.4-10.2); Carbon Dioxide 17 mmol/L (22-30); Chloride 111 mmol/L (98-107); Eosinophils Absolute Auto 0.3 K/mm3 (0-0.3); Eosinophils Percent Auto 6.2 % (0-4.4); Estimated CRCL calculation 20 ml/min; Estimated Glomerular Filt Rate 23; Glucose 89 mg/dL (65-110); Hematocrit 27.7 % (42.0-52.0); Hemoglobin 8.8 g/dL (14.0-18.0); Immature Granulocyte Absolute 0.01 K/mm3 (0.00-0.031); Immature Granulocyte Percent A 0.2 % (0-0.5); Lymphocytes Absolute Auto 0.87 K/mm3 (0.9-3.2); Lymphocytes Percent Auto 21.5 % (18.3-44.2); Mean Corpuscular HGB Conc 31.8 g/dl (32-36); Mean Corpuscular Hemoglobin 35.1 pg (26-34); Mean Corpuscular Volume 110.4 fl (80-100); Mean Platelet Volume 10.1 fl (7.4-10.4); Monocytes Absolute Auto 0.4 K/mm3 (0.1-0.6); Monocytes Percent Auto 9.2 % (2.6-8.5); Neutrophils Absolute Auto 2.5 K/mm3 (1.3-6.7); Neutrophils Percent Auto 61.7 % (45.5-73.1); Platelet Count Result 158 k/mm3 (150-375); Potassium 3.6 mmol/L (3.4-5.0); Red Blood Count 2.51 M/mm3 (4.6-6.20); Red Cell Distribution Width 15.8 % (11.5-14.5); Sodium 135 mmol/L (137-145)
[2025-01-21 07:21] LABS: Macrocytosis 1+ (NORMAL); Platelet Estimate Adequate (Adequate); Schistocytes None Seen
[2025-01-21] MEDS: PANTOPRAZOLE 40 MG TABLET PO (08:16)
[2025-01-21] MEDS: CHOLECALCIFEROL 5,000 UNITS TABLET 5000 UNITS PO (08:16)
[2025-01-21] MEDS: MULTIVITAMINS THERAPEUTIC TAB (*BKC) 1 TABLET PO (08:16)
[2025-01-21] MEDS: TAMSULOSIN HCL 0.4 MG CAPSULE PO (08:16)
--- NOTE | 2025-01-21 11:35 | P.PNIM_ITS ---
Progress Note: A&P Assessment and Plan (1) Acute kidney injury: Code(s): N17.9 - Acute kidney failure, unspecified Status: Acute (2) Kidney calculus: Code(s): N20.0 - Calculus of kidney Status: Acute (3) Bilateral ureteral calculi: Code(s): N20.1 - Calculus of ureter Status: Acute Plan (1) Blood in urine: Code(s): R31.9 - Hematuria, unspecified Status: Acute Assessment and Plan: * hold Xarelto, INR 3.1 * CT of the abdomen and pelvis was negative for appendicitis, diverticulitis, or intestinal obstruction but did show bilateral ureteric stones with bilateral hydronephrotic changes, urinary bladder with thickened wall suggestive of cystitis, ascites, 3 mm stone in the right upper ureter, stones in the left lower ureter with the largest measuring 5 mm * urology consulted with plans for cystoscopy 2/4 * continue pain control * SCDs for now Hydronephrosis: Code(s): N13.30 - Unspecified hydronephrosis Status: Acute Assessment and Plan: s/p Cystoscopy, bilateral retrogrades, bilateral ureteroscopy with stone extraction, bilateral ureteral stent placement 4.8 Serbian contour 12/23 (3) Kidney calculus: Code(s): N20.0 - Calculus of kidney Status: Acute Assessment and Plan: see above plan of care Acute kidney injury: Code(s): N17.9 - Acute kidney failure, unspecified Status: Acute Assessment and Plan: * creatinine 3.57, EGFR 17, likely resulting from kidney obstruction * baseline creatinine 1.1-1.3, EGFR 59 to greater than 60 * [place] related to above * patient was given 1 L of normal saline while in the ED * continue maintenance IV fluids for now. Monitor renal function, electrolytes and UOP. Creatinine is trending down, 2.65 on January 21 Hypovolemic hypotension Blood pressure is trending, Blood pressure 91/61 today Increases normal saline from 125 to 150 mL/hour Acute UTI Abnormal urinalysis: Code(s): R82.90 - Unspecified abnormal findings in urine Status: Acute Assessment and Plan: * UA shown might brown turbid appearance, 2+ urine protein, 3+ urine blood, 1+ urine bilirubin, 2+ leukocyte, 51-100 urine RBC, 6-10 urine WBC, 11-20 urine cast. 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 * Holding losartan and hydrochlorothiazide given the LISA (8) Hypothyroid: Qualifiers: Hypothyroidism type: acquired Qualified Code(s): E03.9 - Hypothyroidism, unspecified Code(s): E03.9 - Hypothyroidism, unspecified Status: Chronic Assessment and Plan: * TSH 10.5. FT4 elevated at 2.9. * Related to Synthroid but TSH not suppressed; could be related to sporadic compliance * Hold Synthroid since the elevated FT4 is the active hormone (9) GERD (gastroesophageal reflux disease): Code(s): K21.9 - Gastro-esophageal reflux disease without esophagitis Status: Chronic Assessment and Plan: * normally on omeprazole 20 mg daily will substitute with Protonix (10) Anemia: Qualifiers: Anemia type: unspecified type Qualified Code(s): D64.9 - Anemia, unspecified Code(s): D64.9 - Anemia, unspecified Status: Chronic Assessment and Plan: * hemoglobin 10.3 * appears to be chronic macrocytic anemia. * iron level 94, ferritin 137 on 12/10/2024 * B12 and folate normal * Hgb 9.5 today. Follow (11) Chronic alcohol abuse: Code(s): F10.10 - Alcohol abuse, uncomplicated Status: Acute Assessment and Plan: * reports drinking 1-2 glasses of wine nightly * no history alcohol withdrawal Subjective Date/time seen: 01/21/25 11:35 Interval history: I saw examined patient today, patient still has abdomen pain bilateral lower abdomen. Pain is better controlled, denies chest pain shortness of breath, nausea vomiting. Patient has a poor oral intake Blood pressure low in the morning, afebrile Exam Narrative: GENERAL: Pleasant, in no acute distress. Well-nourished. - EYES: EOMI. Anicteric. - HENT: Moist mucous membranes. - LUNGS: Clear to auscultation bilateral ly, no wheezing, rhonchi, or rales. - CARDIOVASCULAR: Regular rate and rhyth m. No murmur. No JVD. - ABDOMEN: Soft, bilateral lower abdomin al tender and non-distended. No palpable masses. - EXTREMITIES: No edema. Peripheral puls es 2+. Non-tender. - NEUROLOGIC: No focal neurological defi cits. CN II-XII grossly intact. - PSYCHIATRIC: Awake, Alert and oriented x 3. Appropriate mood and affect. - SKIN: No rashes or lesions. Warm. - LYMPH: No cervical lymphadenopathy. Objective Data Vital Signs Vital Signs: Vital Signs - 24 hr 01/20/25 12:44 01/20/25 15:20 01/20/25 15:35 Temperature 97.5 F L 98.0 F Pulse Rate 80 79 86 Respiratory Rate 16 17 16 Blood Pressure 104/77 96/55 L 93/52 L Pulse Oximetry 96 95 100 Oxygen Delivery Room Air Simple Face Mask Simple Face Mask Oxygen Flow Rate 8 8 01/20/25 15:50 01/20/25 16:44 01/20/25 20:45 Temperature 96.2 F L Pulse Rate 81 66 Respiratory Rate 14 18 Blood Pressure 97/67 L 115/61 Pulse Oximetry 95 97 Oxygen Delivery Room Air Room Air Oxygen Flow Rate 01/20/25 21:01 01/21/25 05:10 01/21/25 08:13 Temperature 97.7 F 98.7 F Pulse Rate 76 57 L 94 Respiratory Rate 18 18 Blood Pressure 91/60 L 93/57 L 91/61 L Pulse Oximetry 98 96 Oxygen Delivery Oxygen Flow Rate 01/21/25 08:16 Temperature Pulse Rate 94 Respiratory Rate Blood Pressure Pulse Oximetry Oxygen Delivery Oxygen Flow Rate Intake/Output Intake/Output: Intake & Output 01/18/25 01/19/25 01/20/25 01/21/25 23:59 23:59 23:59 23:59 Intake Total 2049.0 2440 1777 Output Total 550 875 Balance 2049.0 1890 902 Meds/Results Medications: Active Medications Generic Name Dose Route Start Last Admin Trade Name Freq PRN Reason Stop Dose Admin Acetaminophen 650 mg 01/19/25 14:48 Acetaminophen 325 Mg Tablet PO Q4H PRN Mild Pain (1-3) or Fever Hydrocodone Bitart/Acetaminophen 1 tab 01/19/25 14:48 01/20/25 17:59 Hydrocodone/Acetaminophen (*Crx) 5-325 Mg Tablet PO 1 tab Q4H PRN Administration Moderate Pain (4-6) Fentanyl Citrate 25 mcg 01/20/25 13:20 Fentanyl Citrate Inj (*Crx) 100 Mcg/2 Ml Vial IV PUSH Q2M PRN Pain Sodium Chloride 1,000 mls @ 125 mls/hr 01/19/25 14:40 01/21/25 01:37 Normal Saline Iv IV CONT 125 mls/hr .Q8H PABLO Administration Ceftriaxone Sodium 1 gm in 50 mls @ 100 mls/hr 01/20/25 09:00 01/21/25 08:46 Rocephin 1 Gm/Ns 50 Ml IVPB Infused DAILY PABLO Infusion Lactated Ringer's 1,000 mls @ 30 mls/hr 01/20/25 13:20 01/20/25 15:20 Lr - Lactated Ringers Iv IV CONT Infused .Q24H PABLO Infusion Lactated Ringer's 1,000 mls @ 30 mls/hr 01/20/25 13:20 01/20/25 16:03 Lr - Lactated Ringers Iv IV CONT Infused .Q24H PABLO Infusion Levothyroxine Sodium 50 mcg 01/20/25 06:30 01/21/25 05:30 Levothyroxine Sodium 50 Mcg Tablet PO 50 mcg DAILY@0630 PABLO Administration Metoprolol Succinate 50 mg 01/20/25 09:00 01/21/25 08:16 Metoprolol Succinate Ext Rel 50 Mg Tabcr PO Not Given DAILY PABLO Morphine Sulfate 2 mg 01/19/25 14:38 01/21/25 01:42 Morphine Sulfate (*Crx) 2 Mg/Ml Inj IV PUSH 2 mg Q2H PRN Administration Pain Rated 7-10 Multivitamins Therapeutic 1 tablet 01/20/25 09:00 01/21/25 08:16 Multivitamins Therapeutic Tab (*Bkc) PO 1 tablet DAILY PABLO Administration Ondansetron HCl 4 mg 01/19/25 14:48 01/20/25 09:45 Ondansetron Inj 4 Mg/2 Ml Vial IV PUSH 4 mg Q6H PRN Administration Nausea And Vomiting Ondansetron HCl 4 mg 01/20/25 13:20 Ondansetron Inj 4 Mg/2 Ml Vial IV PUSH ONCE PRN Nausea Oxycodone HCl 5 mg 01/20/25 13:20 Oxycodone Hcl (*Crx) 5 Mg Tab Ir PO ONCE PRN Pain Pantoprazole Sodium 40 mg 01/19/25 15:10 01/21/25 08:16 Pantoprazole 40 Mg Tablet PO 40 mg QAM PABLO Administration Tamsulosin HCl 0.4 mg 01/20/25 09:00 01/21/25 08:16 Tamsulosin Hcl 0.4 Mg Capsule PO 0.4 mg QAM PABLO Administration Vitamin D 5,000 units 01/20/25 09:00 01/21/25 08:16 Cholecalciferol 5,000 Units Tablet PO 5,000 units DAILY PABLO Administration Radiology Results: ITS Impressions Abdomen X-Ray 01/19/25 18:39 IMPRESSION: Nonspecific, nonobstructive bowel gas pattern. Poor visualization of the CT findings of obstructing and nonobstructing calculi, as detailed above. Abdomen/Pelvis CT 01/20/25 08:05 Impression: 3-4 mm right ureteral stone has migrated to the distal ureter. Stable mild right hydronephrosis and additional nonobstructing renal stones. Stable distal left ureteral stones, as detailed above, with mild left hydroureteronephrosis. Small amount of abdominopelvic ascites. Small bilateral pleural effusions, increased from prior exam. Labs Labs: Laboratory Results - last 24 hr 01/21/25 05:44 WBC 4.0 L RBC 2.51 L Hgb 8.8 L Hct 27.7 L MCV 110.4 H MCH 35.1 H MCHC 31.8 L RDW 15.8 H Plt Count 158 MPV 10.1 Immature Gran % (Auto) 0.2 Neut % (Auto) 61.7 Lymph % (Auto) 21.5 [place] % (Auto) 9.2 H Eos % (Auto) 6.2 H Baso % (Auto) 1.2 Lymph # (Auto) 0.87 L [place] # (Auto) 0.4 Eos # (Auto) 0.3 Baso # (Auto) 0.1 Abs Immat Gran (auto) 0.01 Absolute Neuts (auto) 2.5 Absolute Nucleated RBC 0.000 Band Neutrophils % Not Reportable Nucleated RBC % 0.0 Platelet Estimate Adequate Macrocytosis 1+ Schistocytes None seen Sodium 135 L Potassium 3.6 Chloride 111 H Carbon Dioxide 17 L Anion Gap 7 BUN 36 H Creatinine 2.65 H Estim Creat Clear Calc 20 Estimated GFR 23 L Glucose 89 Calcium 6.8 L Total Bilirubin 0.8 AST 21 ALT 13 Alkaline Phosphatase 155 H Total Protein 5.0 L Albumin 2.2 L
[2025-01-21] MEDS: SODIUM CHLORIDE 0.9% IV 1,000 ML 150 ML IV CONT ×2 (12:41→19:40)
[2025-01-21] MEDS: ONDANSETRON INJ 4 MG/2 ML VIAL IV PUSH (22:07)
[2025-01-22] MEDS: SODIUM CHLORIDE 0.9% IV 1,000 ML 150 ML IV CONT ×3 (01:40→15:05)
[2025-01-22] MEDS: LEVOTHYROXINE SODIUM 50 MCG TABLET PO (05:31)
[2025-01-22 06:00] VITALS: BP 97/62; PULSE 89; RESP 16; TEMP 36.8; O2SAT 100
[2025-01-22 07:55] LABS: Basophils Absolute Auto 0.1 K/mm3 (0.0-0.1); Basophils Percent Auto 1.3 % (0.2-1.2); Eosinophils Absolute Auto 0.2 K/mm3 (0-0.3); Eosinophils Percent Auto 5.6 % (0-4.4); Hematocrit 27.2 % (42.0-52.0); Hemoglobin 8.8 g/dL (14.0-18.0); Immature Granulocyte Absolute 0.02 K/mm3 (0.00-0.031); Immature Granulocyte Percent A 0.5 % (0-0.5); Lymphocytes Absolute Auto 0.69 K/mm3 (0.9-3.2); Lymphocytes Percent Auto 18.4 % (18.3-44.2); Mean Corpuscular HGB Conc 32.4 g/dl (32-36); Mean Corpuscular Hemoglobin 36.4 pg (26-34); Mean Corpuscular Volume 112.4 fl (80-100); Mean Platelet Volume 9.9 fl (7.4-10.4); Monocytes Absolute Auto 0.3 K/mm3 (0.1-0.6); Monocytes Percent Auto 8.8 % (2.6-8.5); Neutrophils Absolute Auto 2.5 K/mm3 (1.3-6.7); Neutrophils Percent Auto 65.4 % (45.5-73.1); Platelet Count Result 161 k/mm3 (150-375); Red Blood Count 2.42 M/mm3 (4.6-6.20); Red Cell Distribution Width 15.8 % (11.5-14.5); White Blood Count 3.8 K/mm3 (4.5-10.0)
[2025-01-22 08:22] LABS: Macrocytosis 1+ (NORMAL); Platelet Estimate Adequate (Adequate); Schistocytes None Seen
[2025-01-22 08:37] LABS: Alanine Aminotransferase 15 U/L (6-50); Albumin Level 2.1 g/dL (3.5-5.1); Alkaline Phosphatase 176 U/L (38-126); Anion Gap 6 mmol/L (4-12); Aspartate Amino Transferase 32 U/L (17-59); Bilirubin,Total 0.6 mg/dL (0.2-1.3); Blood Urea Nitrogen 28 mg/dL (9-20); Calcium 6.9 mg/dL (8.4-10.2); Carbon Dioxide 22 mmol/L (22-30); Chloride 113 mmol/L (98-107); Estimated CRCL calculation 28 ml/min; Estimated Glomerular Filt Rate 36; Glucose 120 mg/dL (65-110); Potassium 3.9 mmol/L (3.4-5.0); Sodium 141 mmol/L (137-145)
[2025-01-22 09:21] VITALS: PULSE 94
[2025-01-22] MEDS: MULTIVITAMINS THERAPEUTIC TAB (*BKC) 1 TABLET PO (09:21)
[2025-01-22] MEDS: CHOLECALCIFEROL 5,000 UNITS TABLET 5000 UNITS PO (09:21)
[2025-01-22] MEDS: METOPROLOL SUCCINATE EXT REL 50 MG TABCR PO (09:21)
[2025-01-22] MEDS: TAMSULOSIN HCL 0.4 MG CAPSULE PO (09:21)
[2025-01-22] MEDS: PANTOPRAZOLE 40 MG TABLET PO (09:21)
[2025-01-22 09:30] VITALS: O2SAT 94
--- NOTE | 2025-01-22 09:31 | P.PNIM_ITS ---
Progress Note: A&P Assessment and Plan (1) Acute kidney injury: Code(s): N17.9 - Acute kidney failure, unspecified Status: Acute (2) Kidney calculus: Code(s): N20.0 - Calculus of kidney Status: Acute (3) Bilateral ureteral calculi: Code(s): N20.1 - Calculus of ureter Status: Acute Plan (1) Blood in urine: Code(s): R31.9 - Hematuria, unspecified Status: Acute Assessment and Plan: * hold Xarelto, INR 3.1 * CT of the abdomen and pelvis was negative for appendicitis, diverticulitis, or intestinal obstruction but did show bilateral ureteric stones with bilateral hydronephrotic changes, urinary bladder with thickened wall suggestive of cystitis, ascites, 3 mm stone in the right upper ureter, stones in the left lower ureter with the largest measuring 5 mm * urology consulted with plans for cystoscopy 2/4 * continue pain control * SCDs for now Hydronephrosis: Code(s): N13.30 - Unspecified hydronephrosis Status: Acute Assessment and Plan: s/p Cystoscopy, bilateral retrogrades, bilateral ureteroscopy with stone extraction, bilateral ureteral stent placement 4.8 [place] contour 2/4 The plan will be to leave the stents in for minimum of 2-3 weeks to let the area heal. (3) Kidney calculus: Code(s): N20.0 - Calculus of kidney Status: Acute Assessment and Plan: see above plan of care Acute kidney injury: Code(s): N17.9 - Acute kidney failure, unspecified Status: Acute Assessment and Plan: * creatinine 3.57, EGFR 17, likely resulting from kidney obstruction * baseline creatinine 1.1-1.3, EGFR 59 to greater than 60 * [place] related to above * patient was given 1 L of normal saline while in the ED * continue maintenance IV fluids for now. Monitor renal function, electrolytes and UOP. Creatinine is trending down, 2.65 on January 21 Hypovolemic hypotension Blood pressure is trending, Blood pressure 91/61 today Increases normal saline from 125 to 150 mL/hour Acute UTI Abnormal urinalysis: Code(s): R82.90 - Unspecified abnormal findings in urine Status: Acute Assessment and Plan: * UA shown might brown turbid appearance, 2+ urine protein, 3+ urine blood, 1+ urine bilirubin, 2+ leukocyte, 51-100 urine RBC, 6-10 urine WBC, 11-20 urine cast. 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 * Holding losartan and hydrochlorothiazide given the LISA (8) Hypothyroid: Qualifiers: Hypothyroidism type: acquired Qualified Code(s): E03.9 - Hypothyroidism, unspecified Code(s): E03.9 - Hypothyroidism, unspecified Status: Chronic Assessment and Plan: * TSH 10.5. FT4 elevated at 2.9. * Related to Synthroid but TSH not suppressed; could be related to sporadic compliance * Hold Synthroid since the elevated FT4 is the active hormone (9) GERD (gastroesophageal reflux disease): Code(s): K21.9 - Gastro-esophageal reflux disease without esophagitis Status: Chronic Assessment and Plan: * normally on omeprazole 20 mg daily will substitute with Protonix (10) Anemia: Qualifiers: Anemia type: unspecified type Qualified Code(s): D64.9 - Anemia, unspecified Code(s): D64.9 - Anemia, unspecified Status: Chronic Assessment and Plan: * hemoglobin 10.3 * appears to be chronic macrocytic anemia. * iron level 94, ferritin 137 on 12/10/2024 * B12 and folate normal * Hgb 9.5 today. Follow (11) Chronic alcohol abuse: Code(s): F10.10 - Alcohol abuse, uncomplicated Status: Acute Assessment and Plan: * reports drinking 1-2 glasses of wine nightly * no history alcohol withdrawal Subjective Date/time seen: 01/22/25 09:31 Interval history: I saw examined patient today, patient still has abdomen pain bilateral lower abdomen. Patient still has dysuria, urinary urgency frequency, symptom is improving. He denies chest pain shortness of breath, nausea vomiting. Patient has a poor oral intake Blood pressure low in the morning, afebrile Creatinine continues to improve 1.82 today Exam Narrative: GENERAL: Pleasant, in no acute distress. Well-nourished. - EYES: EOMI. Anicteric. - HENT: Moist mucous membranes. - LUNGS: Clear to auscultation bilateral ly, no wheezing, rhonchi, or rales. - CARDIOVASCULAR: Regular rate and rhyth m. No murmur. No JVD. - ABDOMEN: Soft, bilateral lower abdomin al tender and non-distended. No palpable masses. - EXTREMITIES: No edema. Peripheral puls es 2+. Non-tender. - NEUROLOGIC: No focal neurological defi cits. CN II-XII grossly intact. - PSYCHIATRIC: Awake, Alert and oriented x 3. Appropriate mood and affect. - SKIN: No rashes or lesions. Warm. - LYMPH: No cervical lymphadenopathy. Objective Data Vital Signs Vital Signs: Vital Signs - 24 hr 01/21/25 14:00 01/21/25 20:00 01/21/25 20:25 Temperature 98.2 F 98.8 F Pulse Rate 84 88 76 Respiratory Rate 18 16 16 Blood Pressure 103/59 L 104/57 L Pulse Oximetry 99 100 97 Oxygen Delivery Room Air 01/21/25 23:20 01/22/25 06:00 01/22/25 09:21 Temperature 98.7 F 98.2 F Pulse Rate 88 89 94 Respiratory Rate 16 16 Blood Pressure 96/60 L 97/62 L Pulse Oximetry 100 100 Oxygen Delivery Intake/Output Intake/Output: Intake & Output 01/19/25 01/20/25 01/21/25 01/22/25 23:59 23:59 23:59 23:59 Intake Total 2049.0 2440 4854 2737 Output Total 550 1225 Balance 2049.0 1150 8748 2737 Meds/Results Medications: Active Medications Generic Name Dose Route Start Last Admin Trade Name Freq PRN Reason Stop Dose Admin Acetaminophen 650 mg 01/19/25 14:48 Acetaminophen 325 Mg Tablet PO Q4H PRN Mild Pain (1-3) or Fever Hydrocodone Bitart/Acetaminophen 1 tab 01/19/25 14:48 01/20/25 17:59 Hydrocodone/Acetaminophen (*Crx) 5-325 Mg Tablet PO 1 tab Q4H PRN Administration Moderate Pain (4-6) Fentanyl Citrate 25 mcg 01/20/25 13:20 Fentanyl Citrate Inj (*Crx) 100 Mcg/2 Ml Vial IV PUSH Q2M PRN Pain Sodium Chloride 1,000 mls @ 150 mls/hr 01/19/25 14:40 01/22/25 09:28 Normal Saline Iv IV CONT Not Given .Q6H40M PABLO Ceftriaxone Sodium 1 gm in 50 mls @ 100 mls/hr 01/20/25 09:00 01/22/25 09:20 Rocephin 1 Gm/Ns 50 Ml IVPB 100 mls/hr DAILY PABLO Administration Lactated Ringer's 1,000 mls @ 30 mls/hr 01/20/25 13:20 01/22/25 08:36 Lr - Lactated Ringers Iv IV CONT Not Given .Q24H PABLO Lactated Ringer's 1,000 mls @ 30 mls/hr 01/20/25 13:20 01/21/25 18:16 Lr - Lactated Ringers Iv IV CONT Not Given .Q24H PABLO Levothyroxine Sodium 50 mcg 01/20/25 06:30 01/22/25 05:31 Levothyroxine Sodium 50 Mcg Tablet PO 50 mcg DAILY@0630 PABLO Administration Metoprolol Succinate 50 mg 01/20/25 09:00 01/22/25 09:21 Metoprolol Succinate Ext Rel 50 Mg Tabcr PO 50 mg DAILY PABLO Administration Morphine Sulfate 2 mg 01/19/25 14:38 01/21/25 22:06 Morphine Sulfate (*Crx) 2 Mg/Ml Inj IV PUSH 2 mg Q2H PRN Administration Pain Rated 7-10 Multivitamins Therapeutic 1 tablet 01/20/25 09:00 01/22/25 09:21 Multivitamins Therapeutic Tab (*Bkc) PO 1 tablet DAILY PABLO Administration Ondansetron HCl 4 mg 01/19/25 14:48 01/21/25 22:07 Ondansetron Inj 4 Mg/2 Ml Vial IV PUSH 4 mg Q6H PRN Administration Nausea And Vomiting Ondansetron HCl 4 mg 01/20/25 13:20 Ondansetron Inj 4 Mg/2 Ml Vial IV PUSH ONCE PRN Nausea Oxycodone HCl 5 mg 01/20/25 13:20 Oxycodone Hcl (*Crx) 5 Mg Tab Ir PO ONCE PRN Pain Pantoprazole Sodium 40 mg 01/19/25 15:10 01/22/25 09:21 Pantoprazole 40 Mg Tablet PO 40 mg QAM PABLO Administration Tamsulosin HCl 0.4 mg 01/20/25 09:00 01/22/25 09:21 Tamsulosin Hcl 0.4 Mg Capsule PO 0.4 mg QAM PABLO Administration Vitamin D 5,000 units 01/20/25 09:00 01/22/25 09:21 Cholecalciferol 5,000 Units Tablet PO 5,000 units DAILY PABLO Administration Radiology Results: ITS Impressions Abdomen X-Ray 01/19/25 18:39 IMPRESSION: Nonspecific, nonobstructive bowel gas pattern. Poor visualization of the CT findings of obstructing and nonobstructing calculi, as detailed above. Abdomen/Pelvis CT 01/20/25 08:05 Impression: 3-4 mm right ureteral stone has migrated to the distal ureter. Stable mild right hydronephrosis and additional nonobstructing renal stones. Stable distal left ureteral stones, as detailed above, with mild left hydroureteronephrosis. Small amount of abdominopelvic ascites. Small bilateral pleural effusions, increased from prior exam. Labs Labs: Laboratory Results - last 24 hr 01/22/25 07:44 WBC 3.8 L RBC 2.42 L Hgb 8.8 L Hct 27.2 L MCV 112.4 H MCH 36.4 H MCHC 32.4 RDW 15.8 H Plt Count 161 MPV 9.9 Immature Gran % (Auto) 0.5 Neut % (Auto) 65.4 Lymph % (Auto) 18.4 [place] % (Auto) 8.8 H Eos % (Auto) 5.6 H Baso % (Auto) 1.3 H Lymph # (Auto) 0.69 L [place] # (Auto) 0.3 Eos # (Auto) 0.2 Baso # (Auto) 0.1 Abs Immat Gran (auto) 0.02 Absolute Neuts (auto) 2.5 Absolute Nucleated RBC 0.000 Band Neutrophils % Not Reportable Nucleated RBC % 0.0 Platelet Estimate Adequate Macrocytosis 1+ Schistocytes None seen Sodium 141 Potassium 3.9 Chloride 113 H Carbon Dioxide 22 Anion Gap 6 BUN 28 H Creatinine 1.82 H Estim Creat Clear Calc 28 Estimated GFR 36 L Glucose 120 H Calcium 6.9 L Total Bilirubin 0.6 AST 32 ALT 15 Alkaline Phosphatase 176 H Total Protein 5.0 L Albumin 2.1 L
[2025-01-22] MEDS: ONDANSETRON INJ 4 MG/2 ML VIAL IV PUSH (12:39)
[2025-01-22] MEDS: MORPHINE SULFATE (*CRX) 2 MG/ML INJ IV PUSH (12:40)
[2025-01-22 14:00] VITALS: BP 107/72; PULSE 61; RESP 16; TEMP 36.8; O2SAT 94
[2025-01-22 21:07] VITALS: BP 108/68; PULSE 90; RESP 16; TEMP 36.4; O2SAT 99
[2025-01-23] MEDS: MORPHINE SULFATE (*CRX) 2 MG/ML INJ IV PUSH (00:37)
[2025-01-23] MEDS: SODIUM CHLORIDE 0.9% IV 1,000 ML 150 ML IV CONT ×3 (00:39→12:30)
[2025-01-23] MEDS: LEVOTHYROXINE SODIUM 50 MCG TABLET PO (05:43)
[2025-01-23 06:00] VITALS: BP 100/70; PULSE 84; RESP 16; TEMP 36.6; O2SAT 99
[2025-01-23 06:39] LABS: Basophils Absolute Auto 0.1 K/mm3 (0.0-0.1); Basophils Percent Auto 1.5 % (0.2-1.2); Eosinophils Absolute Auto 0.2 K/mm3 (0-0.3); Eosinophils Percent Auto 5.5 % (0-4.4); Hematocrit 27.6 % (42.0-52.0); Hemoglobin 8.8 g/dL (14.0-18.0); Immature Granulocyte Absolute 0.02 K/mm3 (0.00-0.031); Immature Granulocyte Percent A 0.5 % (0-0.5); Mean Corpuscular HGB Conc 31.9 g/dl (32-36); Mean Corpuscular Hemoglobin 35.9 pg (26-34); Mean Corpuscular Volume 112.7 fl (80-100); Mean Platelet Volume 10.4 fl (7.4-10.4); Monocytes Absolute Auto 0.3 K/mm3 (0.1-0.6); Monocytes Percent Auto 7.3 % (2.6-8.5); Neutrophils Absolute Auto 2.6 K/mm3 (1.3-6.7); Neutrophils Percent Auto 65.2 % (45.5-73.1); Platelet Count Result 168 k/mm3 (150-375); Red Blood Count 2.45 M/mm3 (4.6-6.20); Red Cell Distribution Width 15.9 % (11.5-14.5)
[2025-01-23 06:50] LABS: Alanine Aminotransferase 17 U/L (6-50); Albumin Level 2.1 g/dL (3.5-5.1); Alkaline Phosphatase 168 U/L (38-126); Anion Gap 7 mmol/L (4-12); Aspartate Amino Transferase 35 U/L (17-59); Bilirubin,Total 0.7 mg/dL (0.2-1.3); Blood Urea Nitrogen 23 mg/dL (9-20); Calcium 6.8 mg/dL (8.4-10.2); Carbon Dioxide 18 mmol/L (22-30); Chloride 115 mmol/L (98-107); Estimated CRCL calculation 39 ml/min; Estimated Glomerular Filt Rate 53; Glucose 92 mg/dL (65-110); Potassium 3.6 mmol/L (3.4-5.0); Sodium 140 mmol/L (137-145)
[2025-01-23 07:10] LABS: Anisocytosis 1+; Platelet Estimate Adequate (Adequate); Schistocytes None Seen
--- NOTE | 2025-01-23 09:12 | PCNFU ---
Nutrition Follow-Up Complete: Suboptimal po intake related to reduced appetite as evidenced by pt report and noted weight loss in EMR Diet order - Goal is met, regular diet PO intake 75% or greater - Progressing. Intakes 50-100% last 48 hours Continue with same goal Goal: Pt current nutrition is Regular diet. Ensure Enlive BID (350 kcal, 20 g protein each). Nutrition recommendation: No nutrition recommendations. Continue current nutrition care plan and orders. Agree with orders Last recorded weight is 82 kg. Bowel Motility: +1 BM 3.6.25 Labs Reviewed: Hgb 8.8, Hct 27.6, BUN 23, Cre 1.31 Meds Noted: Protonix, zofran Skin: No skin issues Additional Notes: Intakes improved, going well. Eating 50-100% regular and drinking 100% Ensure. Continue with orders. Monitor diet order, intake, wt, labs. Follow up in 5 days.
[2025-01-23 09:51] VITALS: PULSE 84
[2025-01-23] MEDS: CHOLECALCIFEROL 5,000 UNITS TABLET 5000 UNITS PO (09:51)
[2025-01-23] MEDS: TAMSULOSIN HCL 0.4 MG CAPSULE PO (09:51)
[2025-01-23] MEDS: AMOXICILLIN/CLAVULANATE K 500-125 MG TAB 1 TABLET PO ×2 (09:51→20:31)
[2025-01-23] MEDS: MULTIVITAMINS THERAPEUTIC TAB (*BKC) 1 TABLET PO (09:51)
[2025-01-23] MEDS: PANTOPRAZOLE 40 MG TABLET PO (09:51)
[2025-01-23] MEDS: METOPROLOL SUCCINATE EXT REL 50 MG TABCR PO (09:51)
--- NOTE | 2025-01-23 13:28 | P.PNIM_ITS ---
Progress Note: A&P Assessment and Plan (1) Acute kidney injury: Code(s): N17.9 - Acute kidney failure, unspecified Status: Acute (2) Kidney calculus: Code(s): N20.0 - Calculus of kidney Status: Acute (3) Bilateral ureteral calculi: Code(s): N20.1 - Calculus of ureter Status: Acute Plan # hematuria * hold Xarelto, INR 3.1 * CT of the abdomen and pelvis was negative for appendicitis, diverticulitis, or intestinal obstruction but did show bilateral ureteric stones with bilateral hydronephrotic changes, urinary bladder with thickened wall suggestive of cystitis, ascites, 3 mm stone in the right upper ureter, stones in the left lower ureter with the largest measuring 5 mm * urology consulted status post cystoscopy 01/20 with stone extraction and bilateral ureteral stent placement. * continue pain control. Add Levsin * SCDs for now # Hydronephrosis: s/p Cystoscopy, bilateral retrogrades, bilateral ureteroscopy with stone extraction, bilateral ureteral stent placement 4.8 [place] contour 12/23 The plan will be to leave the stents in for minimum of 2-3 weeks to let the area heal. # Kidney calculus: see above plan of care # Acute kidney injury: * creatinine 3.57, EGFR 17, likely resulting from kidney obstruction on admission * baseline creatinine 1.1-1.3, EGFR 59 to greater than 60 * [place] related to above * patient was given 1 L of normal saline while in the ED Creatinine down to baseline. Will stop IV fluid today.. # Hypovolemic hypotension Blood pressure stable # Acute UTI * UA shown might brown turbid appearance, 2+ urine protein, 3+ urine blood, 1+ urine bilirubin, 2+ leukocyte, 51-100 urine RBC, 6-10 urine WBC, 11-20 urine cast. * Urine culture no growth * BCx NGTD * patient started on Rocephin Antibiotics changed to Augmentin today. 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 Which will be resumed * continue metoprolol # Hypertension: * Holding losartan and hydrochlorothiazide given the LISA # Hypothyroid: * TSH 10.5. FT4 elevated at 2.9. * Related to Synthroid but TSH not suppressed; could be related to sporadic compliance * Hold Synthroid since the elevated FT4 is the active hormone # GERD (gastroesophageal reflux disease): * normally on omeprazole 20 mg daily will substitute with Protonix # Anemia: * hemoglobin 10.3 * appears to be chronic macrocytic anemia. * iron level 94, ferritin 137 on 12/10/2024 * B12 and folate normal # Chronic alcohol abuse: * reports drinking 1-2 glasses of wine nightly * no history alcohol withdrawal Subjective Date/time seen: 01/23/25 13:28 Interval history: He is still having pain when he urinates. Urine is still dark in color. No chest pain or shortness of breath Review of Systems Review of Systems: All systems reviewed & are unremarkable except as noted in HPI and below Exam Narrative: GENERAL: Pleasant, in no acute distress. Well-nourished. - EYES: EOMI. Anicteric. - HENT: Moist mucous membranes. - LUNGS: Clear to auscultation bilateral ly, no wheezing, rhonchi, or rales. - CARDIOVASCULAR: Regular rate and rhyth m. No murmur. No JVD. - ABDOMEN: Soft, bilateral lower abdomin al tender and non-distended. No palpable masses. - EXTREMITIES: No edema. Peripheral puls es 2+. Non-tender. - NEUROLOGIC: No focal neurological defi cits. CN II-XII grossly intact. - PSYCHIATRIC: Awake, Alert and oriented x 3. Appropriate mood and affect. - SKIN: No rashes or lesions. Warm. - LYMPH: No cervical lymphadenopathy. Objective Data Vital Signs Vital Signs: Vital Signs - 24 hr 01/22/25 14:00 01/22/25 21:07 01/23/25 06:00 Temperature 98.3 F 97.6 F 97.9 F Pulse Rate 61 90 84 Respiratory Rate 16 16 16 Blood Pressure 107/72 108/68 100/70 Pulse Oximetry 94 99 99 01/23/25 09:51 Temperature Pulse Rate 84 Respiratory Rate Blood Pressure Pulse Oximetry Intake/Output Intake/Output: Intake & Output 01/20/25 01/21/25 01/22/25 01/23/25 23:59 23:59 23:59 23:59 Intake Total 2440 4854 6117 2656.5 Output Total 550 1225 1100 250 Balance 1890 3629 5017 2406.5 Meds/Results Medications: Active Medications Generic Name Dose Route Start Last Admin Trade Name Freq PRN Reason Stop Dose Admin Acetaminophen 650 mg 01/19/25 14:48 Acetaminophen 325 Mg Tablet PO Q4H PRN Mild Pain (1-3) or Fever Hydrocodone Bitart/Acetaminophen 1 tab 01/19/25 14:48 01/20/25 17:59 Hydrocodone/Acetaminophen (*Crx) 5-325 Mg Tablet PO 1 tab Q4H PRN Administration Moderate Pain (4-6) Amoxicillin/Clavulanate Potassium 1 tablet 01/23/25 09:00 01/23/25 09:51 Amoxicillin/Clavulanate K 500-125 Mg Tab PO 02/01/25 21:01 1 tablet Q12HR PABLO Administration Fentanyl Citrate 25 mcg 01/20/25 13:20 Fentanyl Citrate Inj (*Crx) 100 Mcg/2 Ml Vial IV PUSH Q2M PRN Pain Hyoscyamine 0.125 mg 01/23/25 11:22 Hyoscyamine Sulfate 0.125 Mg Tablet PO Q4H PRN Bladder Spasm Sodium Chloride 1,000 mls @ 150 mls/hr 01/19/25 14:40 01/23/25 12:30 Normal Saline Iv IV CONT 150 mls/hr .Q6H40M PABLO Administration Levothyroxine Sodium 50 mcg 01/20/25 06:30 01/23/25 05:43 Levothyroxine Sodium 50 Mcg Tablet PO 50 mcg DAILY@0630 PABLO Administration Metoprolol Succinate 50 mg 01/20/25 09:00 01/23/25 09:51 Metoprolol Succinate Ext Rel 50 Mg Tabcr PO 50 mg DAILY PABLO Administration Morphine Sulfate 2 mg 01/19/25 14:38 01/23/25 00:37 Morphine Sulfate (*Crx) 2 Mg/Ml Inj IV PUSH 2 mg Q2H PRN Administration Pain Rated 7-10 Multivitamins Therapeutic 1 tablet 01/20/25 09:00 01/23/25 09:51 Multivitamins Therapeutic Tab (*Bkc) PO 1 tablet DAILY PABLO Administration Ondansetron HCl 4 mg 01/19/25 14:48 01/22/25 12:39 Ondansetron Inj 4 Mg/2 Ml Vial IV PUSH 4 mg Q6H PRN Administration Nausea And Vomiting Ondansetron HCl 4 mg 01/20/25 13:20 Ondansetron Inj 4 Mg/2 Ml Vial IV PUSH ONCE PRN Nausea Oxycodone HCl 5 mg 01/20/25 13:20 Oxycodone Hcl (*Crx) 5 Mg Tab Ir PO ONCE PRN Pain Pantoprazole Sodium 40 mg 01/19/25 15:10 01/23/25 09:51 Pantoprazole 40 Mg Tablet PO 40 mg QAM PABLO Administration Tamsulosin HCl 0.4 mg 01/20/25 09:00 01/23/25 09:51 Tamsulosin Hcl 0.4 Mg Capsule PO 0.4 mg QAM PABLO Administration Vitamin D 5,000 units 01/20/25 09:00 01/23/25 09:51 Cholecalciferol 5,000 Units Tablet PO 5,000 units DAILY PABLO Administration Radiology Results: ITS Impressions Abdomen X-Ray 01/19/25 18:39 IMPRESSION: Nonspecific, nonobstructive bowel gas pattern. Poor visualization of the CT findings of obstructing and nonobstructing calculi, as detailed above. Abdomen/Pelvis CT 01/20/25 08:05 Impression: 3-4 mm right ureteral stone has migrated to the distal ureter. Stable mild right hydronephrosis and additional nonobstructing renal stones. Stable distal left ureteral stones, as detailed above, with mild left hydroureteronephrosis. Small amount of abdominopelvic ascites. Small bilateral pleural effusions, increased from prior exam. Labs Labs: Laboratory Results - last 24 hr 01/23/25 05:56 WBC 4.0 L RBC 2.45 L Hgb 8.8 L Hct 27.6 L MCV 112.7 H MCH 35.9 H MCHC 31.9 L RDW 15.9 H Plt Count 168 MPV 10.4 Immature Gran % (Auto) 0.5 Neut % (Auto) 65.2 Lymph % (Auto) 20.0 [place] % (Auto) 7.3 Eos % (Auto) 5.5 H Baso % (Auto) 1.5 H Lymph # (Auto) 0.80 L [place] # (Auto) 0.3 Eos # (Auto) 0.2 Baso # (Auto) 0.1 Abs Immat Gran (auto) 0.02 Absolute Neuts (auto) 2.6 Absolute Nucleated RBC 0.000 Band Neutrophils % Not Reportable Nucleated RBC % 0.0 Platelet Estimate Adequate Anisocytosis 1+ Schistocytes None seen Sodium 140 Potassium 3.6 Chloride 115 H Carbon Dioxide 18 L Anion Gap 7 BUN 23 H Creatinine 1.31 H Estim Creat Clear Calc 39 Estimated GFR 53 L Glucose 92 Calcium 6.8 L Total Bilirubin 0.7 AST 35 ALT 17 Alkaline Phosphatase 168 H Total Protein 5.0 L Albumin 2.1 L
[2025-01-23 14:00] VITALS: BP 101/64; PULSE 90; RESP 18; TEMP 36.6; O2SAT 98
[2025-01-23 20:15] VITALS: BP 117/71; PULSE 84; RESP 20; TEMP 36.7; O2SAT 100
[2025-01-23 20:30] VITALS: PULSE 84; RESP 20; O2SAT 100
[2025-01-23] MEDS: HYDROcodone/acetaminophen (*CRX) 5-325 MG TABLET 1 TAB PO (20:30)
[2025-01-24 05:47] VITALS: BP 110/78; PULSE 64; RESP 20; TEMP 36.8; O2SAT 97
[2025-01-24] MEDS: LEVOTHYROXINE SODIUM 50 MCG TABLET PO (05:53)
[2025-01-24 06:24] LABS: Basophils Absolute Auto 0.1 K/mm3 (0.0-0.1); Basophils Percent Auto 1.5 % (0.2-1.2); Eosinophils Absolute Auto 0.2 K/mm3 (0-0.3); Eosinophils Percent Auto 5.2 % (0-4.4); Hematocrit 26.3 % (42.0-52.0); Hemoglobin 8.4 g/dL (14.0-18.0); Immature Granulocyte Absolute 0.02 K/mm3 (0.00-0.031); Immature Granulocyte Percent A 0.4 % (0-0.5); Lymphocytes Percent Auto 21.7 % (18.3-44.2); Mean Corpuscular HGB Conc 31.9 g/dl (32-36); Mean Corpuscular Hemoglobin 35.6 pg (26-34); Mean Corpuscular Volume 111.4 fl (80-100); Mean Platelet Volume 10.2 fl (7.4-10.4); Monocytes Absolute Auto 0.4 K/mm3 (0.1-0.6); Monocytes Percent Auto 7.8 % (2.6-8.5); Neutrophils Absolute Auto 2.9 K/mm3 (1.3-6.7); Neutrophils Percent Auto 63.4 % (45.5-73.1); Platelet Count Result 183 k/mm3 (150-375); Red Blood Count 2.36 M/mm3 (4.6-6.20); Red Cell Distribution Width 15.8 % (11.5-14.5); White Blood Count 4.6 K/mm3 (4.5-10.0)
[2025-01-24 06:36] LABS: Alanine Aminotransferase 18 U/L (6-50); Albumin Level 2.2 g/dL (3.5-5.1); Alkaline Phosphatase 173 U/L (38-126); Anion Gap 8 mmol/L (4-12); Aspartate Amino Transferase 35 U/L (17-59); Bilirubin,Total 0.6 mg/dL (0.2-1.3); Blood Urea Nitrogen 18 mg/dL (9-20); Carbon Dioxide 17 mmol/L (22-30); Chloride 116 mmol/L (98-107); Estimated CRCL calculation 44 ml/min; Estimated Glomerular Filt Rate > 60; Glucose 90 mg/dL (65-110); Potassium 3.9 mmol/L (3.4-5.0); Sodium 141 mmol/L (137-145)
[2025-01-24 07:02] LABS: Hypochromasia 1+; Platelet Estimate Adequate (Adequate); Schistocytes None Seen
[2025-01-24 08:38] VITALS: PULSE 60
[2025-01-24] MEDS: MULTIVITAMINS THERAPEUTIC TAB (*BKC) 1 TABLET PO (08:38)
[2025-01-24] MEDS: TAMSULOSIN HCL 0.4 MG CAPSULE PO (08:38)
[2025-01-24] MEDS: AMOXICILLIN/CLAVULANATE K 500-125 MG TAB 1 TABLET PO ×2 (08:38→20:32)
[2025-01-24] MEDS: METOPROLOL SUCCINATE EXT REL 50 MG TABCR PO (08:38)
[2025-01-24] MEDS: CHOLECALCIFEROL 5,000 UNITS TABLET 5000 UNITS PO (08:38)
[2025-01-24] MEDS: PANTOPRAZOLE 40 MG TABLET PO (08:38)
--- NOTE | 2025-01-24 13:09 | P.PNIM_ITS ---
Progress Note: A&P Assessment and Plan (1) Acute kidney injury: Code(s): N17.9 - Acute kidney failure, unspecified Status: Acute (2) Kidney calculus: Code(s): N20.0 - Calculus of kidney Status: Acute (3) Bilateral ureteral calculi: Code(s): N20.1 - Calculus of ureter Status: Acute Plan # hematuria * hold Xarelto, INR 3.1 * CT of the abdomen and pelvis was negative for appendicitis, diverticulitis, or intestinal obstruction but did show bilateral ureteric stones with bilateral hydronephrotic changes, urinary bladder with thickened wall suggestive of cystitis, ascites, 3 mm stone in the right upper ureter, stones in the left lower ureter with the largest measuring 5 mm * urology consulted status post cystoscopy 01/20 with stone extraction and bilateral ureteral stent placement. * continue pain control. Add Levsin * SCDs for now Xarelto resumed # Hydronephrosis: s/p Cystoscopy, bilateral retrogrades, bilateral ureteroscopy with stone extraction, bilateral ureteral stent placement 4.8 [place] contour 12/23 The plan will be to leave the stents in for minimum of 2-3 weeks to let the area heal. # Kidney calculus: see above plan of care # Acute kidney injury: * creatinine 3.57, EGFR 17, likely resulting from kidney obstruction on admission * baseline creatinine 1.1-1.3, EGFR 59 to greater than 60 * [place] related to above * patient was given 1 L of normal saline while in the ED Creatinine down to baseline. Will stop IV fluid today.. Legs are puffy. Will start hydrochlorothiazide # Hypovolemic hypotension Blood pressure stable. Restart hydrochlorothiazide. Continue to hold losartan # Acute UTI * UA shown might brown turbid appearance, 2+ urine protein, 3+ urine blood, 1+ urine bilirubin, 2+ leukocyte, 51-100 urine RBC, 6-10 urine WBC, 11-20 urine cast. 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 Which will be resumed * continue metoprolol # Hypertension: * Holding losartan and hydrochlorothiazide given the LISA. Resume hydrochlorothiazide # Hypothyroid: * TSH 10.5. FT4 elevated at 2.9. * Related to Synthroid but TSH not suppressed; could be related to sporadic compliance * Hold Synthroid since the elevated FT4 is the active hormone # GERD (gastroesophageal reflux disease): * normally on omeprazole 20 mg daily will substitute with Protonix # Anemia: * hemoglobin 10.3 * appears to be chronic macrocytic anemia. * iron level 94, ferritin 137 on 12/10/2024 * B12 and folate normal # Chronic alcohol abuse: * reports drinking 1-2 glasses of wine nightly * no history alcohol withdrawal * # disposition: PT OT to see Subjective Date/time seen: 01/24/25 13:09 Interval history: Feels weak but better. Bladder spasms as improved. No blood in urine. Review of Systems Review of Systems: All systems reviewed & are unremarkable except as noted in HPI and below Exam Narrative: GENERAL: Pleasant, in no acute distress. Well-nourished. - EYES: EOMI. Anicteric. - HENT: Moist mucous membranes. - LUNGS: Clear to auscultation bilateral ly, no wheezing, rhonchi, or rales. - CARDIOVASCULAR: Regular rate and rhyth m. No murmur. No JVD. - ABDOMEN: Soft, bilateral lower abdomin al tender and non-distended. No palpable masses. - EXTREMITIES: No edema. Peripheral puls es 2+. Non-tender. - NEUROLOGIC: No focal neurological defi cits. CN II-XII grossly intact. - PSYCHIATRIC: Awake, Alert and oriented x 3. Appropriate mood and affect. - SKIN: No rashes or lesions. Warm. - LYMPH: No cervical lymphadenopathy. Objective Data Vital Signs Vital Signs: Vital Signs - 24 hr 01/23/25 14:00 01/23/25 20:15 01/23/25 20:30 Temperature 97.9 F 98.1 F Pulse Rate 90 84 84 Respiratory Rate 18 20 20 Blood Pressure 101/64 117/71 Pulse Oximetry 98 100 100 Oxygen Delivery Room Air 01/24/25 05:47 01/24/25 08:35 01/24/25 08:38 Temperature 98.2 F Pulse Rate 64 60 Respiratory Rate 20 Blood Pressure 110/78 Pulse Oximetry 97 Oxygen Delivery Room Air Intake/Output Intake/Output: Intake & Output 01/21/25 01/22/25 01/23/25 01/24/25 23:59 23:59 23:59 23:59 Intake Total 4854 6117 3396.5 690 Output Total 1225 1100 250 400 Balance 3629 5017 3146.5 290 Meds/Results Medications: Active Medications Generic Name Dose Route Start Last Admin Trade Name Freq PRN Reason Stop Dose Admin Acetaminophen 650 mg 01/19/25 14:48 Acetaminophen 325 Mg Tablet PO Q4H PRN Mild Pain (1-3) or Fever Hydrocodone Bitart/Acetaminophen 1 tab 01/19/25 14:48 01/23/25 20:30 Hydrocodone/Acetaminophen (*Crx) 5-325 Mg Tablet PO 1 tab Q4H PRN Administration Moderate Pain (4-6) Amoxicillin/Clavulanate Potassium 1 tablet 01/23/25 09:00 01/24/25 08:38 Amoxicillin/Clavulanate K 500-125 Mg Tab PO 02/01/25 21:01 1 tablet Q12HR PABLO Administration Fentanyl Citrate 25 mcg 01/20/25 13:20 Fentanyl Citrate Inj (*Crx) 100 Mcg/2 Ml Vial IV PUSH Q2M PRN Pain Hyoscyamine 0.125 mg 01/23/25 11:22 Hyoscyamine Sulfate 0.125 Mg Tablet PO Q4H PRN Bladder Spasm Levothyroxine Sodium 50 mcg 01/20/25 06:30 01/24/25 05:53 Levothyroxine Sodium 50 Mcg Tablet PO 50 mcg DAILY@0630 PABLO Administration Metoprolol Succinate 50 mg 01/20/25 09:00 01/24/25 08:38 Metoprolol Succinate Ext Rel 50 Mg Tabcr PO 50 mg DAILY PABLO Administration Morphine Sulfate 2 mg 01/19/25 14:38 01/23/25 00:37 Morphine Sulfate (*Crx) 2 Mg/Ml Inj IV PUSH 2 mg Q2H PRN Administration Pain Rated 7-10 Multivitamins Therapeutic 1 tablet 01/20/25 09:00 01/24/25 08:38 Multivitamins Therapeutic Tab (*Bkc) PO 1 tablet DAILY PABLO Administration Ondansetron HCl 4 mg 01/19/25 14:48 01/22/25 12:39 Ondansetron Inj 4 Mg/2 Ml Vial IV PUSH 4 mg Q6H PRN Administration Nausea And Vomiting Ondansetron HCl 4 mg 01/20/25 13:20 Ondansetron Inj 4 Mg/2 Ml Vial IV PUSH ONCE PRN Nausea Oxycodone HCl 5 mg 01/20/25 13:20 Oxycodone Hcl (*Crx) 5 Mg Tab Ir PO ONCE PRN Pain Pantoprazole Sodium 40 mg 01/19/25 15:10 01/24/25 08:38 Pantoprazole 40 Mg Tablet PO 40 mg QAM PABLO Administration Tamsulosin HCl 0.4 mg 01/20/25 09:00 01/24/25 08:38 Tamsulosin Hcl 0.4 Mg Capsule PO 0.4 mg QAM PABLO Administration Vitamin D 5,000 units 01/20/25 09:00 01/24/25 08:38 Cholecalciferol 5,000 Units Tablet PO 5,000 units DAILY PABLO Administration Radiology Results: ITS Impressions Abdomen X-Ray 01/19/25 18:39 IMPRESSION: Nonspecific, nonobstructive bowel gas pattern. Poor visualization of the CT findings of obstructing and nonobstructing calculi, as detailed above. Abdomen/Pelvis CT 01/20/25 08:05 Impression: 3-4 mm right ureteral stone has migrated to the distal ureter. Stable mild right hydronephrosis and additional nonobstructing renal stones. Stable distal left ureteral stones, as detailed above, with mild left hydroureteronephrosis. Small amount of abdominopelvic ascites. Small bilateral pleural effusions, increased from prior exam. Labs Labs: Laboratory Results - last 24 hr 01/24/25 05:58 WBC 4.6 RBC 2.36 L Hgb 8.4 L Hct 26.3 L MCV 111.4 H MCH 35.6 H MCHC 31.9 L RDW 15.8 H Plt Count 183 MPV 10.2 Immature Gran % (Auto) 0.4 Neut % (Auto) 63.4 Lymph % (Auto) 21.7 [place] % (Auto) 7.8 Eos % (Auto) 5.2 H Baso % (Auto) 1.5 H Lymph # (Auto) 1.00 [place] # (Auto) 0.4 Eos # (Auto) 0.2 Baso # (Auto) 0.1 Abs Immat Gran (auto) 0.02 Absolute Neuts (auto) 2.9 Absolute Nucleated RBC 0.000 Band Neutrophils % Not Reportable Nucleated RBC % 0.0 Platelet Estimate Adequate Hypochromasia 1+ Schistocytes None seen Sodium 141 Potassium 3.9 Chloride 116 H Carbon Dioxide 17 L Anion Gap 8 BUN 18 Creatinine 1.15 Estim Creat Clear Calc 44 Estimated GFR > 60 Glucose 90 Calcium 7.0 L Total Bilirubin 0.6 AST 35 ALT 18 Alkaline Phosphatase 173 H Total Protein 5.0 L Albumin 2.2 L
[2025-01-24 14:00] VITALS: BP 96/63; PULSE 95; RESP 16; TEMP 36.8; O2SAT 99
--- NOTE | 2025-01-24 19:53 | PC.NURSE ---
On 01/24/25, the PROFESSIONAL BENEFITS SALES CONSULTANT, Johana, provided care and completed [facility] documentation on this patient. I have reviewed the PROFESSIONAL BENEFITS SALES CONSULTANT's documentation and agree with the findings.
[2025-01-24] MEDS: HYDROcodone/acetaminophen (*CRX) 5-325 MG TABLET 1 TAB PO (20:33)
[2025-01-24 20:35] VITALS: PULSE 87; RESP 20; O2SAT 99
[2025-01-24 21:02] VITALS: BP 105/72; PULSE 87; RESP 20; TEMP 37.1; O2SAT 99
--- NOTE | 2025-01-25 00:38 | PC.NURSE ---
daylight savings time
--- NOTE | 2025-01-25 03:03 | PC.NURSE ---
Daylight Savings Time For Daylight Savings Time Ending in the Fall - Clocks are moved back. For Daylight Savings Time Beginning in the Spring - Clocks are moved ahead. For [facility], the time of change occurs at 0200 hrs. Time is taken from the locomotive observer. This entry on the patient's chart recognizes the change in time reflected during documentation. Example: 2 entries for vital signs may be charted for 0200 hrs.
[2025-01-25] MEDS: LEVOTHYROXINE SODIUM 50 MCG TABLET PO (05:31)
[2025-01-25 06:00] VITALS: BP 99/60; PULSE 99; RESP 20; TEMP 37; O2SAT 97
[2025-01-25 06:03] LABS: Basophils Absolute Auto 0.1 K/mm3 (0.0-0.1); Basophils Percent Auto 1.1 % (0.2-1.2); Eosinophils Absolute Auto 0.2 K/mm3 (0-0.3); Eosinophils Percent Auto 4.7 % (0-4.4); Hematocrit 25.8 % (42.0-52.0); Immature Granulocyte Absolute 0.03 K/mm3 (0.00-0.031); Immature Granulocyte Percent A 0.6 % (0-0.5); Lymphocytes Absolute Auto 0.96 K/mm3 (0.9-3.2); Lymphocytes Percent Auto 20.3 % (18.3-44.2); Mean Corpuscular Hemoglobin 34.3 pg (26-34); Mean Corpuscular Volume 110.7 fl (80-100); Mean Platelet Volume 10.3 fl (7.4-10.4); Monocytes Absolute Auto 0.5 K/mm3 (0.1-0.6); Monocytes Percent Auto 9.5 % (2.6-8.5); Neutrophils Percent Auto 63.8 % (45.5-73.1); Platelet Count Result 180 k/mm3 (150-375); Red Blood Count 2.33 M/mm3 (4.6-6.20); Red Cell Distribution Width 15.9 % (11.5-14.5); White Blood Count 4.7 K/mm3 (4.5-10.0)
[2025-01-25 06:30] LABS: Alanine Aminotransferase 17 U/L (6-50); Albumin Level 2.1 g/dL (3.5-5.1); Alkaline Phosphatase 171 U/L (38-126); Anion Gap 9 mmol/L (4-12); Aspartate Amino Transferase 31 U/L (17-59); Bilirubin,Total 0.5 mg/dL (0.2-1.3); Blood Urea Nitrogen 17 mg/dL (9-20); Carbon Dioxide 17 mmol/L (22-30); Chloride 114 mmol/L (98-107); Estimated CRCL calculation 43 ml/min; Estimated Glomerular Filt Rate 60; Glucose 97 mg/dL (65-110); Magnesium 1.1 mg/dL (1.6-2.3); Sodium 140 mmol/L (137-145)
[2025-01-25 06:41] LABS: Hypochromasia 1+; Macrocytosis 1+ (NORMAL); Platelet Estimate Adequate (Adequate); Schistocytes None Seen
[2025-01-25] MEDS: hydroCHLOROthiazide 6.25 MG TABLET 12.5 MG PO (11:02)
[2025-01-25] MEDS: CHOLECALCIFEROL 5,000 UNITS TABLET 5000 UNITS PO (11:03)
[2025-01-25] MEDS: AMOXICILLIN/CLAVULANATE K 500-125 MG TAB 1 TABLET PO ×2 (11:03→20:49)
[2025-01-25] MEDS: TAMSULOSIN HCL 0.4 MG CAPSULE PO (11:03)
[2025-01-25] MEDS: METOPROLOL SUCCINATE EXT REL 50 MG TABCR PO (11:03)
[2025-01-25] MEDS: MULTIVITAMINS THERAPEUTIC TAB (*BKC) 1 TABLET PO (11:03)
[2025-01-25] MEDS: RIVAROXABAN 20 MG TABLET PO (11:03)
[2025-01-25] MEDS: MAGNESIUM SULF 2 GM/WATER 50ML 2 GM/50 ML BAG IVPB (11:04)
[2025-01-25] MEDS: FOLIC ACID 1 MG TABLET PO (11:04)
[2025-01-25] MEDS: PANTOPRAZOLE 40 MG TABLET PO (11:06)
--- NOTE | 2025-01-25 13:29 | P.PNIM_ITS ---
Progress Note: A&P Assessment and Plan (1) Acute kidney injury: Code(s): N17.9 - Acute kidney failure, unspecified Status: Acute (2) Kidney calculus: Code(s): N20.0 - Calculus of kidney Status: Acute (3) Bilateral ureteral calculi: Code(s): N20.1 - Calculus of ureter Status: Acute Plan # hematuria * hold Xarelto, INR 3.1 * CT of the abdomen and pelvis was negative for appendicitis, diverticulitis, or intestinal obstruction but did show bilateral ureteric stones with bilateral hydronephrotic changes, urinary bladder with thickened wall suggestive of cystitis, ascites, 3 mm stone in the right upper ureter, stones in the left lower ureter with the largest measuring 5 mm * urology consulted status post cystoscopy 01/20 with stone extraction and bilateral ureteral stent placement. * continue pain control. Add Levsin * SCDs for now Xarelto resumed # Hydronephrosis: s/p Cystoscopy, bilateral retrogrades, bilateral ureteroscopy with stone extraction, bilateral ureteral stent placement 4.8 [place] contour 12/23 The plan will be to leave the stents in for minimum of 2-3 weeks to let the area heal. # Kidney calculus: see above plan of care # Acute kidney injury: * creatinine 3.57, EGFR 17, likely resulting from kidney obstruction on admission * baseline creatinine 1.1-1.3, EGFR 59 to greater than 60 * [place] related to above * patient was given 1 L of normal saline while in the ED Creatinine down to baseline. Will stop IV fluid today.. Legs are puffy. started on hydrochlorothiazide # Hypovolemic hypotension Blood pressure stable. Restart hydrochlorothiazide. Continue to hold losartan # Acute UTI * UA shown might brown turbid appearance, 2+ urine protein, 3+ urine blood, 1+ urine bilirubin, 2+ leukocyte, 51-100 urine RBC, 6-10 urine WBC, 11-20 urine cast. 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 Which will be resumed * continue metoprolol # Hypertension: * Holding losartan and hydrochlorothiazide given the LISA. Resume hydrochlorothiazide # Hypothyroid: * TSH 10.5. FT4 elevated at 2.9. * Related to Synthroid but TSH not suppressed; could be related to sporadic compliance * Hold Synthroid since the elevated FT4 is the active hormone # GERD (gastroesophageal reflux disease): * normally on omeprazole 20 mg daily will substitute with Protonix # Anemia: * hemoglobin 10.3 * appears to be chronic macrocytic anemia. * iron level 94, ferritin 137 on 12/10/2024 * B12 and folate normal # Chronic alcohol abuse: * reports drinking 1-2 glasses of wine nightly * no history alcohol withdrawal * # disposition: PT OT to see for possible short term rehab Subjective Date/time seen: 01/25/25 13:29 Interval history: no new complaints. no fever, chills. swelling in legs still present. labs reviewed. no fever, chills. Review of Systems Review of Systems: All systems reviewed & are unremarkable except as noted in HPI and below Exam Narrative: GENERAL: Pleasant, in no acute distress. Well-nourished. - EYES: EOMI. Anicteric. - HENT: Moist mucous membranes. - LUNGS: Clear to auscultation bilateral ly, no wheezing, rhonchi, or rales. - CARDIOVASCULAR: Regular rate and rhyth m. No murmur. No JVD. - ABDOMEN: Soft, bilateral lower abdomin al tender and non-distended. No palpable masses. - EXTREMITIES: No edema. Peripheral puls es 2+. Non-tender. - NEUROLOGIC: No focal neurological defi cits. CN II-XII grossly intact. - PSYCHIATRIC: Awake, Alert and oriented x 3. Appropriate mood and affect. - SKIN: No rashes or lesions. Warm. - LYMPH: No cervical lymphadenopathy. Objective Data Vital Signs Vital Signs: Vital Signs - 24 hr 01/24/25 14:00 01/24/25 20:35 01/24/25 21:02 Temperature 98.3 F 98.7 F Pulse Rate 95 87 87 Respiratory Rate 16 20 20 Blood Pressure 96/63 L 105/72 Pulse Oximetry 99 99 99 Oxygen Delivery Room Air 01/25/25 06:00 Temperature 98.6 F Pulse Rate 99 Respiratory Rate 20 Blood Pressure 99/60 L Pulse Oximetry 97 Oxygen Delivery Intake/Output Intake/Output: Intake & Output 01/22/25 01/23/25 01/24/25 01/26/25 23:59 23:59 23:59 00:59 Intake Total 6117 3396.5 1520 600 Output Total 1100 250 500 200 Balance 5017 3146.5 1020 400 Meds/Results Medications: Active Medications Generic Name Dose Route Start Last Admin Trade Name Freq PRN Reason Stop Dose Admin Acetaminophen 650 mg 01/19/25 14:48 Acetaminophen 325 Mg Tablet PO Q4H PRN Mild Pain (1-3) or Fever Hydrocodone Bitart/Acetaminophen 1 tab 01/19/25 14:48 01/24/25 20:33 Hydrocodone/Acetaminophen (*Crx) 5-325 Mg Tablet PO 1 tab Q4H PRN Administration Moderate Pain (4-6) Amoxicillin/Clavulanate Potassium 1 tablet 01/23/25 09:00 01/25/25 11:03 Amoxicillin/Clavulanate K 500-125 Mg Tab PO 02/01/25 21:01 1 tablet Q12HR PABLO Administration Fentanyl Citrate 25 mcg 01/20/25 13:20 Fentanyl Citrate Inj (*Crx) 100 Mcg/2 Ml Vial IV PUSH Q2M PRN Pain Folic Acid 1 mg 01/25/25 09:00 01/25/25 11:04 Folic Acid 1 Mg Tablet PO 1 mg QAM PABLO Administration Hydrochlorothiazide 12.5 mg 01/26/25 09:00 Hydrochlorothiazide 12.5 Mg Capsule PO QAM PABLO Hyoscyamine 0.125 mg 01/23/25 11:22 Hyoscyamine Sulfate 0.125 Mg Tablet PO Q4H PRN Bladder Spasm Levothyroxine Sodium 50 mcg 01/20/25 06:30 01/25/25 05:31 Levothyroxine Sodium 50 Mcg Tablet PO 50 mcg DAILY@0630 PABLO Administration Metoprolol Succinate 50 mg 01/20/25 09:00 01/25/25 11:03 Metoprolol Succinate Ext Rel 50 Mg Tabcr PO 50 mg DAILY PABLO Administration Morphine Sulfate 2 mg 01/19/25 14:38 01/23/25 00:37 Morphine Sulfate (*Crx) 2 Mg/Ml Inj IV PUSH 2 mg Q2H PRN Administration Pain Rated 7-10 Multivitamins Therapeutic 1 tablet 01/20/25 09:00 01/25/25 11:03 Multivitamins Therapeutic Tab (*Bkc) PO 1 tablet DAILY PABLO Administration Ondansetron HCl 4 mg 01/19/25 14:48 01/22/25 12:39 Ondansetron Inj 4 Mg/2 Ml Vial IV PUSH 4 mg Q6H PRN Administration Nausea And Vomiting Oxycodone HCl 5 mg 01/20/25 13:20 Oxycodone Hcl (*Crx) 5 Mg Tab Ir PO ONCE PRN Pain Pantoprazole Sodium 40 mg 01/19/25 15:10 01/25/25 11:06 Pantoprazole 40 Mg Tablet PO 40 mg QAM PABLO Administration Rivaroxaban 20 mg 01/25/25 09:00 01/25/25 11:03 Rivaroxaban 20 Mg Tablet PO 20 mg DAILY PABLO Administration Tamsulosin HCl 0.4 mg 01/20/25 09:00 01/25/25 11:03 Tamsulosin Hcl 0.4 Mg Capsule PO 0.4 mg QAM PABLO Administration Vitamin D 5,000 units 01/20/25 09:00 01/25/25 11:03 Cholecalciferol 5,000 Units Tablet PO 5,000 units DAILY PABLO Administration Radiology Results: ITS Impressions Abdomen X-Ray 01/19/25 18:39 IMPRESSION: Nonspecific, nonobstructive bowel gas pattern. Poor visualization of the CT findings of obstructing and nonobstructing calculi, as detailed above. Abdomen/Pelvis CT 01/20/25 08:05 Impression: 3-4 mm right ureteral stone has migrated to the distal ureter. Stable mild right hydronephrosis and additional nonobstructing renal stones. Stable distal left ureteral stones, as detailed above, with mild left hydroureteronephrosis. Small amount of abdominopelvic ascites. Small bilateral pleural effusions, increased from prior exam. Labs Labs: Laboratory Results - last 24 hr 01/25/25 05:42 WBC 4.7 RBC 2.33 L Hgb 8.0 L Hct 25.8 L MCV 110.7 H MCH 34.3 H MCHC 31.0 L RDW 15.9 H Plt Count 180 MPV 10.3 Immature Gran % (Auto) 0.6 H Neut % (Auto) 63.8 Lymph % (Auto) 20.3 [place] % (Auto) 9.5 H Eos % (Auto) 4.7 H Baso % (Auto) 1.1 Lymph # (Auto) 0.96 [place] # (Auto) 0.5 Eos # (Auto) 0.2 Baso # (Auto) 0.1 Abs Immat Gran (auto) 0.03 Absolute Neuts (auto) 3.0 Absolute Nucleated RBC 0.000 Band Neutrophils % Not Reportable Nucleated RBC % 0.0 Platelet Estimate Adequate Hypochromasia 1+ Macrocytosis 1+ Schistocytes None seen Sodium 140 Potassium 4.0 Chloride 114 H Carbon Dioxide 17 L Anion Gap 9 BUN 17 Creatinine 1.17 Estim Creat Clear Calc 43 Estimated GFR 60 Glucose 97 Calcium 7.0 L Magnesium 1.1 L Total Bilirubin 0.5 AST 31 ALT 17 Alkaline Phosphatase 171 H Total Protein 5.0 L Albumin 2.1 L
[2025-01-25 14:00] VITALS: BP 102/65; PULSE 82; RESP 20; TEMP 36.2; O2SAT 99
[2025-01-25 20:10] VITALS: BP 134/71; PULSE 68; RESP 16; TEMP 37.1; O2SAT 94
[2025-01-26 06:00] VITALS: PULSE 63; RESP 16; TEMP 37; O2SAT 100
[2025-01-26] MEDS: LEVOTHYROXINE SODIUM 50 MCG TABLET PO (06:25)
[2025-01-26 06:33] LABS: Basophils Absolute Auto 0.1 K/mm3 (0.0-0.1); Basophils Percent Auto 1.1 % (0.2-1.2); Eosinophils Absolute Auto 0.2 K/mm3 (0-0.3); Eosinophils Percent Auto 4.7 % (0-4.4); Hemoglobin 8.7 g/dL (14.0-18.0); Immature Granulocyte Absolute 0.01 K/mm3 (0.00-0.031); Immature Granulocyte Percent A 0.2 % (0-0.5); Lymphocytes Absolute Auto 0.86 K/mm3 (0.9-3.2); Lymphocytes Percent Auto 18.4 % (18.3-44.2); Mean Corpuscular HGB Conc 32.2 g/dl (32-36); Mean Corpuscular Hemoglobin 35.5 pg (26-34); Mean Corpuscular Volume 110.2 fl (80-100); Mean Platelet Volume 10.2 fl (7.4-10.4); Monocytes Absolute Auto 0.4 K/mm3 (0.1-0.6); Monocytes Percent Auto 8.4 % (2.6-8.5); Neutrophils Absolute Auto 3.1 K/mm3 (1.3-6.7); Neutrophils Percent Auto 67.2 % (45.5-73.1); Platelet Count Result 180 k/mm3 (150-375); Red Blood Count 2.45 M/mm3 (4.6-6.20); Red Cell Distribution Width 15.9 % (11.5-14.5); White Blood Count 4.7 K/mm3 (4.5-10.0)
[2025-01-26 06:47] LABS: Alanine Aminotransferase 18 U/L (6-50); Albumin Level 2.2 g/dL (3.5-5.1); Alkaline Phosphatase 186 U/L (38-126); Anion Gap 5 mmol/L (4-12); Aspartate Amino Transferase 35 U/L (17-59); Bilirubin,Total 0.7 mg/dL (0.2-1.3); Blood Urea Nitrogen 14 mg/dL (9-20); Calcium 7.4 mg/dL (8.4-10.2); Carbon Dioxide 21 mmol/L (22-30); Chloride 113 mmol/L (98-107); Estimated CRCL calculation 44 ml/min; Estimated Glomerular Filt Rate > 60; Glucose 85 mg/dL (65-110); Magnesium 1.3 mg/dL (1.6-2.3); Potassium 4.2 mmol/L (3.4-5.0); Sodium 139 mmol/L (137-145)
[2025-01-26 07:25] LABS: Macrocytosis 1+ (NORMAL); Platelet Estimate Adequate (Adequate); Schistocytes None Seen
[2025-01-26] MEDS: MULTIVITAMINS THERAPEUTIC TAB (*BKC) 1 TABLET PO (08:50)
[2025-01-26] MEDS: AMOXICILLIN/CLAVULANATE K 500-125 MG TAB 1 TABLET PO ×2 (08:50→20:29)
[2025-01-26] MEDS: TAMSULOSIN HCL 0.4 MG CAPSULE PO (08:50)
[2025-01-26] MEDS: hydroCHLOROthiazide 12.5 MG CAPSULE PO (08:50)
[2025-01-26] MEDS: FOLIC ACID 1 MG TABLET PO (08:50)
[2025-01-26] MEDS: RIVAROXABAN 20 MG TABLET PO (08:50)
[2025-01-26] MEDS: PANTOPRAZOLE 40 MG TABLET PO (08:50)
[2025-01-26] MEDS: CHOLECALCIFEROL 5,000 UNITS TABLET 5000 UNITS PO (08:50)
[2025-01-26 08:51] VITALS: PULSE 88
[2025-01-26] MEDS: METOPROLOL SUCCINATE EXT REL 50 MG TABCR PO (08:51)
--- NOTE | 2025-01-26 12:55 | P.PNIM_ITS ---
Progress Note: A&P Assessment and Plan (1) Acute kidney injury: Code(s): N17.9 - Acute kidney failure, unspecified Status: Acute (2) Kidney calculus: Code(s): N20.0 - Calculus of kidney Status: Acute (3) Bilateral ureteral calculi: Code(s): N20.1 - Calculus of ureter Status: Acute Plan # hematuria * hold Xarelto, INR 3.1 * CT of the abdomen and pelvis was negative for appendicitis, diverticulitis, or intestinal obstruction but did show bilateral ureteric stones with bilateral hydronephrotic changes, urinary bladder with thickened wall suggestive of cystitis, ascites, 3 mm stone in the right upper ureter, stones in the left lower ureter with the largest measuring 5 mm * urology consulted status post cystoscopy 01/20 with stone extraction and bilateral ureteral stent placement. * continue pain control. Add Levsin * SCDs for now Xarelto resumed # Hydronephrosis: s/p Cystoscopy, bilateral retrogrades, bilateral ureteroscopy with stone extraction, bilateral ureteral stent placement 4.8 [place] contour 12/23 The plan will be to leave the stents in for minimum of 2-3 weeks to let the area heal. # Kidney calculus: see above plan of care # Acute kidney injury: * creatinine 3.57, EGFR 17, likely resulting from kidney obstruction on admission * baseline creatinine 1.1-1.3, EGFR 59 to greater than 60 * [place] related to above * patient was given 1 L of normal saline while in the ED Creatinine down to baseline. Will stop IV fluid today.. Legs are puffy. started on hydrochlorothiazide # Hypovolemic hypotension Blood pressure stable. Restart hydrochlorothiazide. Continue to hold losartan # Acute UTI * UA shown might brown turbid appearance, 2+ urine protein, 3+ urine blood, 1+ urine bilirubin, 2+ leukocyte, 51-100 urine RBC, 6-10 urine WBC, 11-20 urine cast. 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 Which will be resumed * continue metoprolol # Hypertension: * Holding losartan and hydrochlorothiazide given the LISA. Resume hydrochlorothiazide # Hypothyroid: * TSH 10.5. FT4 elevated at 2.9. * Related to Synthroid but TSH not suppressed; could be related to sporadic compliance * Hold Synthroid since the elevated FT4 is the active hormone # GERD (gastroesophageal reflux disease): * normally on omeprazole 20 mg daily will substitute with Protonix # Anemia: * hemoglobin 10.3 * appears to be chronic macrocytic anemia. * iron level 94, ferritin 137 on 12/10/2024 * B12 and folate normal # Chronic alcohol abuse: * reports drinking 1-2 glasses of wine nightly * no history alcohol withdrawal * # disposition: PT OT to see for possible short term rehab # Bilateral lower extremity edema will give Lasix dose today. Subjective Date/time seen: 01/26/25 12:55 Interval history: Work with therapy. Leg swelling still persists. Magnesium is low. No Shortness of breath or chest pain Review of Systems Review of Systems: All systems reviewed & are unremarkable except as noted in HPI and below Exam Narrative: GENERAL: Pleasant, in no acute distress. Well-nourished. - EYES: EOMI. Anicteric. - HENT: Moist mucous membranes. - LUNGS: Clear to auscultation bilateral ly, no wheezing, rhonchi, or rales. - CARDIOVASCULAR: Regular rate and rhyth m. No murmur. No JVD. - ABDOMEN: Soft, bilateral lower abdomin al tender and non-distended. No palpable masses. - EXTREMITIES: Bilateral lower extremit y edema 2+ Peripheral pulses 2+. Non- tender. - NEUROLOGIC: No focal neurological defi cits. CN II-XII grossly intact. - PSYCHIATRIC: Awake, Alert and oriented x 3. Appropriate mood and affect. - SKIN: No rashes or lesions. Warm. - LYMPH: No cervical lymphadenopathy. Objective Data Vital Signs Vital Signs: Vital Signs - 24 hr 01/25/25 14:00 01/25/25 20:10 01/26/25 06:00 Temperature 97.2 F L 98.7 F 98.6 F Pulse Rate 82 68 63 Respiratory Rate 20 16 16 Blood Pressure 102/65 134/71 Pulse Oximetry 99 94 100 Oxygen Delivery 01/26/25 08:00 01/26/25 08:51 Temperature Pulse Rate 88 Respiratory Rate Blood Pressure Pulse Oximetry Oxygen Delivery Room Air Intake/Output Intake/Output: Intake & Output 03/06/1201/24/25 01/26/25 01/26/25 23:59 23:59 00:59 23:59 Intake Total 3396.5 1520 800 450 Output Total 250 500 201 Balance 3146.5 1020 599 450 Meds/Results Medications: Active Medications Generic Name Dose Route Start Last Admin Trade Name Freq PRN Reason Stop Dose Admin Acetaminophen 650 mg 01/19/25 14:48 Acetaminophen 325 Mg Tablet PO Q4H PRN Mild Pain (1-3) or Fever Hydrocodone Bitart/Acetaminophen 1 tab 01/19/25 14:48 01/24/25 20:33 Hydrocodone/Acetaminophen (*Crx) 5-325 Mg Tablet PO 1 tab Q4H PRN Administration Moderate Pain (4-6) Amoxicillin/Clavulanate Potassium 1 tablet 01/23/25 09:00 01/26/25 08:50 Amoxicillin/Clavulanate K 500-125 Mg Tab PO 02/01/25 21:01 1 tablet Q12HR PABLO Administration Fentanyl Citrate 25 mcg 01/20/25 13:20 Fentanyl Citrate Inj (*Crx) 100 Mcg/2 Ml Vial IV PUSH Q2M PRN Pain Folic Acid 1 mg 01/25/25 09:00 01/26/25 08:50 Folic Acid 1 Mg Tablet PO 1 mg QAM PABLO Administration Hydrochlorothiazide 12.5 mg 01/26/25 09:00 01/26/25 08:50 Hydrochlorothiazide 12.5 Mg Capsule PO 12.5 mg QAM PABLO Administration Hyoscyamine 0.125 mg 01/23/25 11:22 Hyoscyamine Sulfate 0.125 Mg Tablet PO Q4H PRN Bladder Spasm Levothyroxine Sodium 50 mcg 01/20/25 06:30 01/26/25 06:25 Levothyroxine Sodium 50 Mcg Tablet PO 50 mcg DAILY@0630 PABLO Administration Magnesium Oxide 400 mg 01/27/25 09:00 Magnesium Oxide 400 Mg Tablet PO DAILY PABLO Metoprolol Succinate 50 mg 01/20/25 09:00 01/26/25 08:51 Metoprolol Succinate Ext Rel 50 Mg Tabcr PO 50 mg DAILY PABLO Administration Morphine Sulfate 2 mg 01/19/25 14:38 01/23/25 00:37 Morphine Sulfate (*Crx) 2 Mg/Ml Inj IV PUSH 2 mg Q2H PRN Administration Pain Rated 7-10 Multivitamins Therapeutic 1 tablet 01/20/25 09:00 01/26/25 08:50 Multivitamins Therapeutic Tab (*Bkc) PO 1 tablet DAILY PABLO Administration Ondansetron HCl 4 mg 01/19/25 14:48 01/22/25 12:39 Ondansetron Inj 4 Mg/2 Ml Vial IV PUSH 4 mg Q6H PRN Administration Nausea And Vomiting Oxycodone HCl 5 mg 01/20/25 13:20 Oxycodone Hcl (*Crx) 5 Mg Tab Ir PO ONCE PRN Pain Pantoprazole Sodium 40 mg 01/19/25 15:10 01/26/25 08:50 Pantoprazole 40 Mg Tablet PO 40 mg QAM PABLO Administration Rivaroxaban 20 mg 01/25/25 09:00 01/26/25 08:50 Rivaroxaban 20 Mg Tablet PO 20 mg DAILY PABLO Administration Tamsulosin HCl 0.4 mg 01/20/25 09:00 01/26/25 08:50 Tamsulosin Hcl 0.4 Mg Capsule PO 0.4 mg QAM PABLO Administration Vitamin D 5,000 units 01/20/25 09:00 01/26/25 08:50 Cholecalciferol 5,000 Units Tablet PO 5,000 units DAILY PABLO Administration Radiology Results: ITS Impressions Abdomen X-Ray 01/19/25 18:39 IMPRESSION: Nonspecific, nonobstructive bowel gas pattern. Poor visualization of the CT findings of obstructing and nonobstructing calculi, as detailed above. Abdomen/Pelvis CT 01/20/25 08:05 Impression: 3-4 mm right ureteral stone has migrated to the distal ureter. Stable mild right hydronephrosis and additional nonobstructing renal stones. Stable distal left ureteral stones, as detailed above, with mild left hydroureteronephrosis. Small amount of abdominopelvic ascites. Small bilateral pleural effusions, increased from prior exam. Labs Labs: Laboratory Results - last 24 hr 01/26/25 05:41 WBC 4.7 RBC 2.45 L Hgb 8.7 L Hct 27.0 L MCV 110.2 H MCH 35.5 H MCHC 32.2 RDW 15.9 H Plt Count 180 MPV 10.2 Immature Gran % (Auto) 0.2 Neut % (Auto) 67.2 Lymph % (Auto) 18.4 [place]clennan % (Auto) 8.4 Eos % (Auto) 4.7 H Baso % (Auto) 1.1 Lymph # (Auto) 0.86 L Mclennan # (Auto) 0.4 Eos # (Auto) 0.2 Baso # (Auto) 0.1 Abs Immat Gran (auto) 0.01 Absolute Neuts (auto) 3.1 Absolute Nucleated RBC 0.000 Band Neutrophils % Not Reportable Nucleated RBC % 0.0 Platelet Estimate Adequate Macrocytosis 1+ Schistocytes None seen Sodium 139 Potassium 4.2 Chloride 113 H Carbon Dioxide 21 L Anion Gap 5 BUN 14 Creatinine 1.16 Estim Creat Clear Calc 44 Estimated GFR > 60 Glucose 85 Calcium 7.4 L Magnesium 1.3 L Total Bilirubin 0.7 AST 35 ALT 18 Alkaline Phosphatase 186 H Total Protein 5.0 L Albumin 2.2 L
[2025-01-26 14:00] VITALS: BP 100/67; PULSE 100; RESP 16; TEMP 36.9; O2SAT 98
[2025-01-26] MEDS: FUROSEMIDE 40 MG TABLET PO (16:33)
[2025-01-26] MEDS: MAGNESIUM OXIDE 400 MG TABLET PO (16:33)
[2025-01-26 22:00] VITALS: BP 98/65; PULSE 104; RESP 20; TEMP 36.6; O2SAT 99
[2025-01-27] MEDS: LEVOTHYROXINE SODIUM 50 MCG TABLET PO (05:24)
[2025-01-27 06:00] VITALS: BP 116/64; PULSE 68; RESP 20; TEMP 36.8; O2SAT 97
[2025-01-27 06:27] LABS: Basophils Absolute Auto 0.1 K/mm3 (0.0-0.1); Basophils Percent Auto 1.8 % (0.2-1.2); Eosinophils Absolute Auto 0.2 K/mm3 (0-0.3); Eosinophils Percent Auto 4.6 % (0-4.4); Hematocrit 27.6 % (42.0-52.0); Hemoglobin 8.8 g/dL (14.0-18.0); Immature Granulocyte Absolute 0.02 K/mm3 (0.00-0.031); Immature Granulocyte Percent A 0.4 % (0-0.5); Lymphocytes Absolute Auto 0.82 K/mm3 (0.9-3.2); Lymphocytes Percent Auto 16.4 % (18.3-44.2); Mean Corpuscular HGB Conc 31.9 g/dl (32-36); Mean Corpuscular Hemoglobin 35.6 pg (26-34); Mean Corpuscular Volume 111.7 fl (80-100); Mean Platelet Volume 10.2 fl (7.4-10.4); Monocytes Absolute Auto 0.4 K/mm3 (0.1-0.6); Monocytes Percent Auto 8.2 % (2.6-8.5); Neutrophils Absolute Auto 3.4 K/mm3 (1.3-6.7); Neutrophils Percent Auto 68.6 % (45.5-73.1); Platelet Count Result 185 k/mm3 (150-375); Red Blood Count 2.47 M/mm3 (4.6-6.20); Red Cell Distribution Width 15.9 % (11.5-14.5)
[2025-01-27 06:35] LABS: Alanine Aminotransferase 18 U/L (6-50); Albumin Level 2.2 g/dL (3.5-5.1); Alkaline Phosphatase 181 U/L (38-126); Anion Gap 6 mmol/L (4-12); Aspartate Amino Transferase 37 U/L (17-59); Bilirubin,Total 0.8 mg/dL (0.2-1.3); Blood Urea Nitrogen 13 mg/dL (9-20); Calcium 7.5 mg/dL (8.4-10.2); Carbon Dioxide 22 mmol/L (22-30); Chloride 111 mmol/L (98-107); Estimated CRCL calculation 45 ml/min; Estimated Glomerular Filt Rate > 60; Glucose 84 mg/dL (65-110); Magnesium 1.2 mg/dL (1.6-2.3); Sodium 139 mmol/L (137-145)
[2025-01-27 07:19] LABS: Macrocytosis 1+ (NORMAL); Platelet Estimate Adequate (Adequate); Schistocytes None Seen
[2025-01-27 09:39] VITALS: PULSE 89
[2025-01-27] MEDS: FOLIC ACID 1 MG TABLET PO (09:39)
[2025-01-27] MEDS: METOPROLOL SUCCINATE EXT REL 50 MG TABCR PO (09:39)
[2025-01-27] MEDS: hydroCHLOROthiazide 12.5 MG CAPSULE PO (09:39)
[2025-01-27] MEDS: MULTIVITAMINS THERAPEUTIC TAB (*BKC) 1 TABLET PO (09:40)
[2025-01-27] MEDS: CHOLECALCIFEROL 5,000 UNITS TABLET 5000 UNITS PO (09:40)
[2025-01-27] MEDS: MAGNESIUM OXIDE 400 MG TABLET PO (09:40)
[2025-01-27] MEDS: PANTOPRAZOLE 40 MG TABLET PO (09:40)
[2025-01-27] MEDS: AMOXICILLIN/CLAVULANATE K 500-125 MG TAB 1 TABLET PO (09:40)
[2025-01-27] MEDS: RIVAROXABAN 20 MG TABLET PO (09:40)
[2025-01-27] MEDS: TAMSULOSIN HCL 0.4 MG CAPSULE PO (09:40)
--- NOTE | 2025-01-27 11:15 | P.DS_ITS ---
DS: Admitting Diagnosis Discharge Date 01/27/2025 Admitting Diagnosis Hematuria DS: Discharge Diagnosis Discharge Diagnosis (1) Acute kidney injury: Code(s): N17.9 - Acute kidney failure, unspecified Status: Acute (2) Kidney calculus: Code(s): N20.0 - Calculus of kidney Status: Acute (3) Bilateral ureteral calculi: Code(s): N20.1 - Calculus of ureter Status: Acute DS: Summary Hospital Course Hospital Course: # Hematuria * held xarelto on admission, INR 3.1 * CT of the abdomen and pelvis was negative for appendicitis, diverticulitis, or intestinal obstruction but did show bilateral ureteric stones with bilateral hydronephrotic changes, urinary bladder with thickened wall suggestive of cystitis, ascites, 3 mm stone in the right upper ureter, stones in the left lower ureter with the largest measuring 5 mm * urology consulted status post cystoscopy 01/20 with stone extraction and bilateral ureteral stent placement. * continue pain control. Add Levsin * SCDs for now and subsequently Xarelto resumed # Hydronephrosis: s/p Cystoscopy, bilateral retrogrades, bilateral ureteroscopy with stone extraction, bilateral ureteral stent placement 4.8 English contour 12/23 The plan will be to leave the stents in for minimum of 2-3 weeks to let the area heal. Follow-up with urology as outpatient basis # Kidney calculus: see above plan of care # Acute kidney injury: * creatinine 3.57, EGFR 17, likely resulting from kidney obstruction on admission * baseline creatinine 1.1-1.3, EGFR 59 to greater than 60 * [place] related to above * [facility]. Will stop IV fluid today.. Legs are puffy. started on hydrochlorothiazide # Hypovolemic hypotension Blood pressure stable. Restart hydrochlorothiazide. Continue to hold losartan # Acute UTI * UA shown might brown turbid appearance, 2+ urine protein, 3+ urine blood, 1+ urine bilirubin, 2+ leukocyte, 51-100 urine RBC, 6-10 urine WBC, 11-20 urine cast. 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 Which will be resumed * continue metoprolol # Hypertension: * Holding losartan and hydrochlorothiazide given the LISA. Resume hydrochlorothiazide. Continue to hold losartan at discharge # Hypothyroid: * TSH 10.5. FT4 elevated at 2.9. * Related to Synthroid but TSH not suppressed; could be related to sporadic compliance * Hold Synthroid since the elevated FT4 is the active hormone # GERD (gastroesophageal reflux disease): * normally on omeprazole 20 mg daily will substitute with Protonix # Anemia: * hemoglobin 10.3 * appears to be chronic macrocytic anemia. * iron level 94, ferritin 137 on 12/10/2024 * B12 and folate normal # Chronic alcohol abuse: * reports drinking 1-2 glasses of wine nightly * no history alcohol withdrawal * # disposition: PT OT to see for possible short term rehab # Bilateral lower extremity edema likely due to fluid resuscitation. HCTZ resumed. Follow-up as an outpatient basis. Time Spent with Patient Time attestation: Total time spent providing and/or coordinating discharge services: 35 minutes Exam Narrative: GENERAL: Pleasant, in no acute distress. Well-nourished. - EYES: EOMI. Anicteric. - HENT: Moist mucous membranes. - LUNGS: Clear to auscultation bilateral ly, no wheezing, rhonchi, or rales. - CARDIOVASCULAR: Regular rate and rhyth m. No murmur. No JVD. - ABDOMEN: Soft, bilateral lower abdomin al tender and non-distended. No palpable masses. - EXTREMITIES: Bilateral lower extremit y edema 2+ Peripheral pulses 2+. Non- tender. - NEUROLOGIC: No focal neurological defi cits. CN II-XII grossly intact. - PSYCHIATRIC: Awake, Alert and oriented x 3. Appropriate mood and affect. - SKIN: No rashes or lesions. Warm. - LYMPH: No cervical lymphadenopathy. DS: Data Data Completed and Pending Completed studies during hospitalization: Pending at discharge 01/20/25 14:57 Surgical [PTH] Routine Surgical [PTH] Routine Labs on day of discharge: Labs from last 24 hours 01/27/25 05:50 WBC 5.0 RBC 2.47 L Hgb 8.8 L Hct 27.6 L MCV 111.7 H MCH 35.6 H MCHC 31.9 L RDW 15.9 H Plt Count 185 MPV 10.2 Immature Gran % (Auto) 0.4 Neut % (Auto) 68.6 Lymph % (Auto) 16.4 L [place] % (Auto) 8.2 Eos % (Auto) 4.6 H Baso % (Auto) 1.8 H Lymph # (Auto) 0.82 L [place] # (Auto) 0.4 Eos # (Auto) 0.2 Baso # (Auto) 0.1 Abs Immat Gran (auto) 0.02 Absolute Neuts (auto) 3.4 Absolute Nucleated RBC 0.000 Band Neutrophils % Not Reportable Nucleated RBC % 0.0 Platelet Estimate Adequate Macrocytosis 1+ Schistocytes None seen Sodium 139 Potassium 4.0 Chloride 111 H Carbon Dioxide 22 Anion Gap 6 BUN 13 Creatinine 1.13 Estim Creat Clear Calc 45 Estimated GFR > 60 Glucose 84 Calcium 7.5 L Magnesium 1.2 L Total Bilirubin 0.8 AST 37 ALT 18 Alkaline Phosphatase 181 H Total Protein 5.0 L Albumin 2.2 L Procedures/Treatments: Procedure Note - Detailed Date of Procedure 01/20/25 Pre-op Diagnosis Bilateral ureteral stones Post-op Diagnosis Same Procedure Performed Cystoscopy, bilateral retrogrades, bilateral ureteroscopy with stone extraction, bilateral ureteral stent placement 4.8 English contour Surgeon Bhavesh Rick MD Anesthesia General Description of Procedure Patient is taken the operative suite correctly identified. Once anesthesia was obtained was placed in dorsal lithotomy position and prepped and draped usual sterile fashion. Twenty-two English scope was inserted the bladder direct vision. Does have somewhat of enlarged prostate and median lobe. The bladder itself is 1 to 2+ trabeculation. Left ureteral orifice was cannulated with a guidewire dilated with an 8/10 dilator. Rigid ureteral scope was inserted and multiple stones were seen. And escape basket was used to retrieve the multiple stones. The largest were sent for analysis. Pyelogram was then performed confirm placement of the stent. 4.8 English contour stent was placed with the proximal end coiled in the renal pelvis and the distal in the bladder. The right ureteral orifice was somewhat difficult to enter. I needed to place an angled Glidewire and then placed a ureteral catheter over. Pyelogram revealed somewhat stenotic mid ureter. I was able to manipulate the angled Glidewire up to the kidney. I dilated with an 8/10 dilator. Rigid ureteral scope was then inserted. It was noted that the wire was somewhat submucosal. I reposition the wire. Again multiple stones were retrieved from the right ureter. Pyelogram was then performed confirm placement of this stent in the renal pelvis. 4.8 English contour stent was then placed with the proximal coiled in renal pelvis and the distal in the bladder. Bladder was drained. 2% viscous lidocaine was inserted into urethra. The plan will be to leave the stents in for minimum of 2-3 weeks to let the area heal. This completes dictation. Please send a copy of op note to my office. Estimated Blood Loss 0 Urine Output 100 Drains Yes Packing No Pathology Yes Condition Stable Disposition PACU Imaging Radiologist's impression: ITS Impressions Abdomen/Pelvis CT 01/19/25 10:44 IMPRESSION: 1. No evidence of appendicitis, diverticulitis or intestinal obstruction. 2. Bilateral ureteric stones with bilateral hydronephrotic changes. Bilateral kidney stones. 3. Ascites. 4. Underfilled urinary bladder with thickened wall. Evaluation for cystitis advised. Abdomen X-Ray 01/19/25 18:39 IMPRESSION: Nonspecific, nonobstructive bowel gas pattern. Poor visualization of the CT findings of obstructing and nonobstructing calculi, as detailed above. Abdomen/Pelvis CT 01/20/25 08:05 Impression: 3-4 mm right ureteral stone has migrated to the distal ureter. Stable mild right hydronephrosis and additional nonobstructing renal stones. Stable distal left ureteral stones, as detailed above, with mild left hydroureteronephrosis. Small amount of abdominopelvic ascites. Small bilateral pleural effusions, increased from prior exam. Discharge Plan Discharge Attending physician on discharge: Pranay Mark Consulting providers: Bhavesh Rick Discharging Clinician: Pranay Mark Anticipated Discharge Date/Time: 01/27/25 11:18 Patient Disposition: Home Health Service Activity: as tolerated Diet: heart healthy Patient Instructions: Antibiotic Form Patient Language: Lao Stand Alone Forms: General Discharge Information Follow-up/Referrals: Bhavesh Rick MD [Physician] - 2 Weeks Cora Ramos NP [Primary Care Provider] - 1 Week Discharge Medications: New tamsulosin 0.4 mg Capsule 0.4 mg PO QAM Qty: 30 0RF magnesium oxide 400 mg (241.3 mg magnesium) Tablet 400 mg PO BID Qty: 60 0RF amoxicillin-pot clavulanate 875-125 mg tablet 1 tablet PO Q12H Qty: 10 0RF Continued cholecalciferol (vitamin D3) 125 mcg (5,000 unit) capsule 125 mcg PO DAILY metoprolol succinate 50 mg tablet extended release 24 hr 50 mg PO DAILY Xarelto 20 mg tablet 20 mg PO DAILY folic acid 1 mg PO DAILY multivitamin Tablet 1 tablet PO DAILY omeprazole 20 mg capsule,delayed release(DR/EC) 20 mg PO QAM levothyroxine 50 mcg tablet 50 mcg PO DAILY Qty: 90 1RF (DME) BD Luer-Martha Syringe 3 mL 25 x 1 1/2 syringe See Rx Instructions .ROUTE .MEDSUPPLY Qty: 100 0RF Rx Instructions: Use to draw up Testosterone (DME) needle (disp) 18 G [BD Regular Bevel Alvarado] 18 gauge x 1 needle See Rx Instructions .ROUTE .MEDSUPPLY Qty: 100 0RF Rx Instructions: Use to inject Testosterone hydrochlorothiazide 25 mg tablet 12.5 mg PO DAILY Qty: 45 1RF testosterone cypionate [Depo-Testosterone] 200 mg/mL oil 140 mg IM WEEKLY Qty: 10 0RF Discontinued losartan 100 mg Tablet 100 mg PO DAILY Other Ambulatory Orders: Complete Blood Count with Diff (Routine) Timeframe: 1 Week Location: Determined by Patient Ordered By: Pranay Mark Comprehensive Metabolic Panel (Routine) Timeframe: 1 Week Location: Determined by Patient Ordered By: Pranay Mark Magnesium (Routine) Timeframe: 1 Week Location: Determined by Patient Ordered By: Pranay Mark Date of admission: 01/20/25 16:17 Primary Care Provider: Cora Ramos Admitting Provider: Tariq Monsivais Attending physician on admission: Tariq Monsivais Condition: Stable
== END 2025-01-27 13:00 | disposition home health service (06) | DRG 660 ==
LOC: ANHED 14:46 → ANH3MEDSUR 16:38
PROVIDERS: Emergency Medicine; Nurse Practitioner Acute Care; Urology; Admitting Provider General Practice; Emergency Provider Registered Nurse; PCP Nurse Practitioner; Visit Provider Internal Medicine
PROC: 0T788DZ Dilation of Bilateral Ureters with Intraluminal Device, Via Natural or Artificial Opening Endoscopic (ICD-10-PCS; CPT 52352; principal; 2025-01-20 14:00)
DX: N13.6 Pyonephrosis (principal); I48.20 Chronic atrial fibrillation, unspecified; N17.9 Acute kidney failure, unspecified; I10 Essential (primary) hypertension; I95.81 Postprocedural hypotension; E86.1 Hypovolemia; E03.9 Hypothyroidism, unspecified; E55.9 Vitamin D deficiency, unspecified; D64.9 Anemia, unspecified; K21.9 Gastro-esophageal reflux disease without esophagitis; G47.33 Obstructive sleep apnea (adult) (pediatric); F32.A Depression, unspecified; F10.10 Alcohol abuse, uncomplicated; Z96.653 Presence of artificial knee joint, bilateral; Z79.01 Long term (current) use of anticoagulants; Z86.711 Personal history of pulmonary embolism; Z86.718 Personal history of other venous thrombosis and embolism; Z80.0 Family history of malignant neoplasm of digestive organs
CPT/HCPCS: 36415; 74018; 74176; 74420; 80053; 81001; 82365; 82607; 82746; 83605; 83690; 83735; 84439; 84443; 84480; 84484; 85025; 85610; 85730; 86140; 87040; 87086; 88300; 93005; 96361; 96365; 96375; 96376; 97110; 97161; 97165; 97530; 97535; 99285; A9270; C1758; C1769; C2617; G0378; J0696; J2003; J2270; J2405; J2704; J3010; J3475; J7030; J7120; Q9966

== ENCOUNTER 2025-02-03 12:04 | Outpatient (NON) | payer MEDICARE, SELFPAY ==
[2025-02-03 12:35] LABS: Basophils Absolute Auto 0.1 K/mm3 (0.0-0.1); Basophils Percent Auto 2.1 % (0.2-1.2); Eosinophils Absolute Auto 0.3 K/mm3 (0-0.3); Eosinophils Percent Auto 5.1 % (0-4.4); Hematocrit 30.6 % (42.0-52.0); Hemoglobin 9.7 g/dL (14.0-18.0); Immature Granulocyte Absolute 0.03 K/mm3 (0.00-0.031); Immature Granulocyte Percent A 0.5 % (0-0.5); Lymphocytes Absolute Auto 1.13 K/mm3 (0.9-3.2); Lymphocytes Percent Auto 18.2 % (18.3-44.2); Mean Corpuscular HGB Conc 31.7 g/dl (32-36); Mean Corpuscular Hemoglobin 35.3 pg (26-34); Mean Corpuscular Volume 111.3 fl (80-100); Mean Platelet Volume 10.9 fl (7.4-10.4); Monocytes Absolute Auto 0.4 K/mm3 (0.1-0.6); Monocytes Percent Auto 5.6 % (2.6-8.5); Neutrophils Absolute Auto 4.3 K/mm3 (1.3-6.7); Neutrophils Percent Auto 68.5 % (45.5-73.1); Platelet Count Result 231 k/mm3 (150-375); Red Blood Count 2.75 M/mm3 (4.6-6.20); Red Cell Distribution Width 15.1 % (11.5-14.5); White Blood Count 6.2 K/mm3 (4.5-10.0)
[2025-02-03 13:04] LABS: Alanine Aminotransferase 22 U/L (6-50); Albumin Level 2.7 g/dL (3.5-5.1); Alkaline Phosphatase 237 U/L (38-126); Anion Gap 8 mmol/L (4-12); Aspartate Amino Transferase 53 U/L (17-59); Blood Urea Nitrogen 11 mg/dL (9-20); Calcium 8.2 mg/dL (8.4-10.2); Carbon Dioxide 24 mmol/L (22-30); Chloride 106 mmol/L (98-107); Estimated Glomerular Filt Rate 49; Glucose 110 mg/dL (65-110); Magnesium 1.6 mg/dL (1.6-2.3); Potassium 4.2 mmol/L (3.4-5.0); Sodium 138 mmol/L (137-145)
--- OUTSIDE RECORDS SUMMARY | 2025-02-03 13:32 | XMS_ITS | Clinical Summary ---
Author Organization [facility] [place] [facility] [place] Address [address] [place] [address] Care Team Providers Care Die Sinking Machine Operator Name Role Phone Wilver Maldonado DO Primary Care Provider +1- [phone] Allergies Active Allergy Reactions Criticality Noted Date [...] 1 tablet (50 mcg total) by mouth early intervention specialist before breakfast Active thiamine (VITAMIN B-1) 100 [...] mg extended release tabletIndications: Paroxysmal atrial fibrillation (HCC) Take 1 tablet (50 mg total) by mouth daily 30 tablet 11 12/02/19 25 2025 Active Active Problems Problem Noted Date Diagnosed Date Nonrheumatic aortic valve insufficiency 04/20/20 Paroxysmal atrial fibrillation 07/20/2017 DVT (deep venous thrombosis) 07/20/2017 Essential hypertension 07/20/2017 Pulmonary emboli 07/20/2017 Chronic anticoagulation 07/20/2017 Bradycardia 07/20/2017 Dizziness 07/20/2017 Moderate episode of recurrent major depressive d isorder 11/01/2016 Overview (02/22/2017): Moderate episode of recurrent major depressive disorder Acute cholecystitis 12/16/2015 Overview (02/22/2017): Acute cholecystitis Encounters Date Type Department Care Team Description 12/03/2024 Telephone [facility] [address] [facility] [address] [place] [phone] Tye Kirby III, MD Scheduling Appointments 12/01/2024 Telephone [facility] Cardiology [address] [facility] [address] [place] [phone] Lou Kent NP 11/28/2024 11:30 AM TRANSFUSION AIDE Office Visit [facility] Cardiology [address] [place] [address] Lou Kent NP Paroxysmal atrial fibrillation (HCC); assisted current use of amiodarone; Chronic anticoagulation; Lipid screening 11/28/2024 Telephone [facility]iology [address] [place] [address] Lou Kent NP 11/06/2024 10:15 AM TRANSFUSION AIDE Ancillary Procedure [facility] [address] [place] [address] Dyspnea, unspecified type from Last 3 Months Surgical History Surgery Date Site/Laterality Comments OTHER SURGICAL HISTORY orif rt ankle INGUINAL HERNIA REPAIR Right Inguinal Hernia repair KNEE ARTHROPLASTY Left Knee replacement LAPAROSCOPIC CHOLECYSTECTOMY 2015 Cholecystectomy, laparoscopic Medical History Medical History Date Comments Gout Gout Deep vein thrombosis (DVT) (HCC) Deep venous thrombosis Hypertension Hypertension Atrial fibrillation (HCC) Atrial fibrillation; Comments: LONNIE 01/05/2016 - Hx Other Medical PE/DVT; Comment s: ROSALINDA 03/03/2016 - Paroxysmal atrial fibrillation (HCC) 07/20/2017 DVT (deep venous thrombosis) (HCC) 07/20/2017 Pulmonary emboli (HCC) 07/20/2017 Chronic anticoagulation 07/20/2017 Bradycardia 07/20/2017 Dizziness [...] on file Legal Sex Male 8:58 PM TRANSFUSION AIDE Gender Identity Not on file Sexual Orientation Not on file Obstetrics History Last Filed Vital Signs Vital Sign Reading Time Taken Comments Blood Pressure 96/60 11/28/2024 11:22 AM TRANSFUSION AIDE Pulse 90 11/28/2024 11:22 AM TRANSFUSION AIDE Temperature - - Respiratory Rate 12 01/20/2021 7:46 AM TRANSFUSION AIDE Oxygen Saturation 98% 11/28/2024 11:22 AM TRANSFUSION AIDE Inhaled Oxygen Concentration - - Weight 82.6 kg (182 lb) 11/28/2024 11:22 AM TRANSFUSION AIDE Height 170.2 cm (5' 7 ) 11/28/2024 11:22 AM TRANSFUSION AIDE Body Mass Index 28.51 11/28/2024 11:22 AM TRANSFUSION AIDE Plan of Treatment Health Maintenance Due Date [...] Comments ECG 12-LEAD Routine 11/28/2024 11:32 AM TRANSFUSION AIDE Paroxysmal atrial fibrillation (HCC) POCT LIPID PANEL Routine 11/28/2024 11:3 2 AM TRANSFUSION AIDE Lipid screening HEMOGLOBIN AND HEMATOCRIT Routine 11/28/2024 Chronic anticoagulation THYROID FUNCTION CASCADE Routine 11/28/2024 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 current use of amiodarone TRANSTHORACIC ECHO (TTE) COMPLETE W DOPPLER/CF WO CONTRAST Routine 11/06/2024 10:47 AM TRANSFUSION AIDE Dyspnea, unspecified type from Last 3 Months Results * POCT lipid panel (11/28/2024 11:32 AM TRANSFUSION AIDE) Cholesterol, POC 159 mg/dL HDL, POC 61 mg/dL Triglycerides, POC 83 mg/dL LDL Cholesterol POC 81 mg/dL Chol/HDL Ratio, POC 1.3 Non-HDL Cholesterol, POC 97 mg/dL Cholesterol Total, POC 159 mg/dL Capillary blood 11/28/2024 1 1:32 AM TRANSFUSION AIDE Lou Kent NP POINT OF CARE TEST ORDERA BLES Final Result * ECG 12 lead (11/28/2024 11:32 AM TRANSFUSION AIDE) 11/28/2024 11:3 2 AM TRANSFUSION AIDE Lou Kent CAR WHACKER ECG ORDERABLES Edited Re sult - Final * Thyroid Function [place] (11/28/2024) Blood 11/28/2024 Lou Kent CAR WHACKER LAB BLOOD ORDERABLES Marisela l Result Performing Organization Address [facility]/ZIP Co de Phone Number EXTERNAL LAB * (ABNORMAL) Hemoglobin and hematocrit (11/28/2024) SCRIBED Hemoglobin 12.2(A) 14.0 - 18.0 g/dL EXTERNAL LAB SCRIBED Hematocrit 36.4(A) 42.0 - 52.0 % EXTERNAL LAB Blood 11/28/2024 Lou Kent CAR WHACKER LAB BLOOD ORDERABLES Marisela l Result Performing Organization Address [facility] de Phone Number EXTERNAL LAB * TRANSTHORACIC ECHO (TTE) COMPLETE W DOPPLER/CF WO CONTRAST (11/06/2024 10:47 AM TRANSFUSION AIDE) Anatomical Region Laterality Modality Ultrasound 11/06/2024 10:4 8 AM TRANSFUSION AIDE Narrative 11/06/2024 12:28 PM TRANSFUSION AIDE [facility] Medical Group Cardiology [address] [facility] [address], [place] [address] [address] [facility] [address] [address] P:[phone] P:[phone] Echocardiographic Report Patient Name: MURPHY ARREAGA G : 1945 Study Date: 11/06/2024 10:48:02 AM Gender: M Tech: KEATON Location: OR Ref Provider: MARLEE DELONG Height(Cm): 170 BSA: 2.05 [...] FINDINGS: Interpretation Site: Exam was interpreted at [facility]. Left Ventricle: Normal left ventricular systolic function. [...] By: Pool Campuzano MD 11/06/2024 12:27:32 PM TRANSFUSION AIDE 65-70 Procedure Note Pool Campuzano MD - 11/06/2024 [facility] Medical Group Cardiology [address] [facility] [address], [place] [address] [address] [facility] [address], [place] [address] P:[phone] P:[phone] Echocardiographic Report Patient Name: MURPHY ARREAGA G : 1945 Study Date: 11/06/2024 10:48:02 AM Gender: M Tech: Location: [place] Ref Provider: MARLEE DELONG Height(Cm): 170 BSA: 2.05 Weight(Kg): 88.9 Heart Rate: 72 BP: 117 / 67 Quality: Good Order Provider: MARLEE EDLONG PROCEDURES: Echocardiographic Report: Transthoracic echocardiogram with complete [...] FINDINGS: Interpretation Site: Exam was interpreted at [facility]. Left Ventricle: Normal left ventricular systolic function. [...] By: Pool Campuzano MD 11/06/2024 12:27:32 PM TRANSFUSION AIDE 65-70 Marlee Delong MD CV ECHO PROCEDURES Final Result from Last 3 Months Insurance [facility] [address] [id number] Care Teams Die Sinking Machine Operator Relationship Specialty Start Date End Date Wilver Maldonado DO PCP - General Internal Medicine 07/12/23
--- OUTSIDE RECORDS SUMMARY | 2025-02-03 13:32 | XMS_ITS | Referral Summary ---
Author Organization [address] [facility] Address [address] [place] [address] Care Team Providers Care Data Analytics Developer Name Role Phone Wilver Maldonado DO Primary Care Provider +1- [phone] Encounters Date Type Department Care Team Description 12/03/2024 Telephone Arrhythmia Center [address] [facility] [address] [place] [phone] Tye Kirby III, MD Scheduling Appointments 12/01/2024 Telephone [facility] Medical [facility] Cardiology [address] [place] [address] [address] [place] [phone] Lou Kent NP 11/28/2024 Telephone [facility] Medical [facility] Cardiology [address] [place] [address] [place] [phone] Lou Kent NP 11/28/2024 11:30 AM VICE PRESIDENT PROCESS Office Visit [facility] Medical [facility] Cardiology [address] [place] [address] [place] [phone] Lou Kent NP Paroxysmal atrial fibrillation (HCC); senior living current use of amiodarone; Chronic anticoagulation; Lipid screening 11/06/2024 10:15 AM VICE PRESIDENT PROCESS Ancillary Procedure [facility] Medical [facility] Cardiology [address] [place] [address] [place] [phone] Dyspnea, unspecified type from Last 3 Months Allergies Active Allergy [...] 1 tablet (50 mcg total) by mouth supervisor billposting before breakfast Active thiamine (VITAMIN B-1) 100 [...] valve insufficiency 04/20/20 20 Paroxysmal atrial fibrillation 07/20/2017 DVT (deep venous [...] on file Legal Sex Male 8:58 PM VICE PRESIDENT PROCESS Gender Identity Not on file Sexual Orientation Not on file Last Filed Vital Signs Vital Sign Reading Time Taken Comments Blood Pressure 96/60 11/28/2024 11:22 AM VICE PRESIDENT PROCESS Pulse 90 11/28/2024 11:22 AM VICE PRESIDENT PROCESS Temperature - - Respiratory Rate 12 01/20/2021 7:46 AM VICE PRESIDENT PROCESS Oxygen Saturation 98% 11/28/2024 11:22 AM VICE PRESIDENT PROCESS Inhaled Oxygen Concentration - - Weight 82.6 kg (182 lb) 11/28/2024 11:22 AM VICE PRESIDENT PROCESS Height 170.2 cm (5' 7 ) 11/28/2024 11:22 AM VICE PRESIDENT PROCESS Body Mass Index 28.51 11/28/2024 11:22 AM VICE PRESIDENT PROCESS Plan of Treatment Not on file Procedures Procedure Name Priority Date/Time Associated Diagnosis Comments ECG 12-LEAD Routine 11/28/2024 11:32 AM VICE PRESIDENT PROCESS Paroxysmal atrial fibrillation (HCC) POCT LIPID PANEL Routine 11/28/2024 11:3 2 AM VICE PRESIDENT PROCESS Lipid screening HEMOGLOBIN AND HEMATOCRIT Routine 11/28/2024 Chronic anticoagulation THYROID FUNCTION CASCADE Routine 11/28/2024 senior living current use of amiodarone TRANSTHORACIC ECHO (TTE) COMPLETE W DOPPLER/CF WO CONTRAST Routine 11/06/2024 10:47 AM VICE PRESIDENT PROCESS Dyspnea, unspecified type from Last 3 Months Results * POCT lipid panel (11/28/2024 11:32 AM VICE PRESIDENT PROCESS) Cholesterol, POC 159 mg/dL HDL, POC 61 mg/dL Triglycerides, POC 83 mg/dL LDL Cholesterol POC 81 mg/dL Chol/HDL Ratio, POC 1.3 Non-HDL Cholesterol, POC 97 mg/dL Cholesterol Total, POC 159 mg/dL Capillary blood 11/28/2024 1 1:32 AM VICE PRESIDENT PROCESS Lou Kent NP POINT OF CARE TEST ORDERA BLES Final Result * ECG 12 lead (11/28/2024 11:32 AM VICE PRESIDENT PROCESS) 11/28/2024 11:3 2 AM VICE PRESIDENT PROCESS Lou Kent NP ECG ORDERABLES Edited Re sult - Final * Thyroid Function [place] (11/28/2024) Blood 11/28/2024 Lou Kent NP LAB BLOOD ORDERABLES Marisela l Result Performing Organization Address City/[facility]/ZIP Co de Phone Number EXTERNAL LAB * (ABNORMAL) Hemoglobin and hematocrit (11/28/2024) SCRIBED Hemoglobin 12.2(A) 14.0 - 18.0 g/dL EXTERNAL LAB SCRIBED Hematocrit 36.4(A) 42.0 - 52.0 % EXTERNAL LAB Blood 11/28/2024 Lou Kent NP LAB BLOOD ORDERABLES Marisela l Result EXTERNAL LAB * TRANSTHORACIC ECHO (TTE) COMPLETE W DOPPLER/CF WO CONTRAST (11/06/2024 10:47 AM VICE PRESIDENT PROCESS) Anatomical Region Laterality Modality Ultrasound 11/06/2024 10:4 8 AM VICE PRESIDENT PROCESS Narrative 11/06/2024 12:28 PM VICE PRESIDENT PROCESS [facility] Medical Group Cardiology [address], [place] [address] [address] [facility] [address], [place] [address] P:[phone] P:[phone] Echocardiographic Report Patient Name: MURPHY ARREAGA G : 1945 Study Date: 11/06/2024 10:48:02 AM Gender: M Tech: KEATON Location: [facility] Provider: MARLEE DELONG Height(Cm): 170 BSA: 2.05 [...] FINDINGS: Interpretation Site: Exam was interpreted at [facility]. Left Ventricle: Normal left ventricular systolic [...] By: Pool Campuzano MD 11/06/2024 12:27:32 PM VICE PRESIDENT PROCESS 65-70 Procedure Note Pool Campuzano MD - 11/06/2024 [facility] Medical Group Cardiology [address] [facility] [address], [place] [address] [address] [facility] [address], [place] [address] P:[phone] P:[phone] Echocardiographic Report Patient Name: MURPHY ARREAGA G : 1945 Study Date: 11/06/2024 10:48:02 AM Gender: M Tech: Location: [facility] Provider: MARLEE DELONG Height(Cm): 170 BSA: 2.05 [...] FINDINGS: Interpretation Site: Exam was interpreted at [facility]. Left Ventricle: Normal left ventricular systolic [...] By: Pool Campuzano MD 11/06/2024 12:27:32 PM VICE PRESIDENT PROCESS 65-70 us Marlee Delong MD CV ECHO PROCEDURES Final Result from Last 3 Months Insurance MEDICARE [facility] MEDICARE [employer] Care Teams Data Analytics Developer Relationship Specialty Start Date End Date Wilver Maldonado DO PCP - General Internal Medicine 07/12/23
--- OUTSIDE RECORDS SUMMARY | 2025-02-03 13:33 | XMS_ITS | Clinical Summary ---
Author Organization [facility] Address [address] [place] [address] Phone Care Team Providers Care Fiber Machine Tender Name Role Phone Wilver Maldonado DO Primary [...] Encounters Date Type Department Care Team Description 01/24/2025 External Device Data [facility] ABSTRACTION Provider, Abstract 01/23/2025 External Device Data [place]STRA[place] Provider, Abstract 01/06/2025 External Device Data [place]STRA[place] Provider, Abstract 12/17/2024 Orders Only [facility] [place] [address] [place] [address] Sravan Le MD 12/15/2024 Orders Only [facility] [place] [address] [place] [address] Sravan Le MD 12/12/2024 Orders Only [facility] [place] [address] [place] [address] Sravan Le MD 12/10/2024 External Device Data [...] on file Legal Sex Male 9:11 AM JOINERY PATTERNMAKER Gender Identity Not on file Sexual Orientation [...] Description 04/14/2025 3:45 PM CDT Office Visit [facility] [place] [address] [facility] [address] [place] [address] Sravan Le MD [address] [facility] [address] [place] [address] Health Maintenance Due Date Last [...] TESTOSTERONE FREE Routine 12/10/2024 2:2 8 PM JOINERY PATTERNMAKER COMPREHENSIVE METABOLIC PANEL Routine 12/10/2024 1:56 PM JOINERY PATTERNMAKER CBC WITH DIFFERENTIAL Routine 12/10/2024 10:31 AM JOINERY PATTERNMAKER from Last 3 Months Results * TESTOSTERONE FREE (12/10/2024 2:28 PM JOINERY PATTERNMAKER) Blood Sravan Le MD CHEMISTRY ORDERABLES Final Resu lt * COMPREHENSIVE METABOLIC PANEL (12/10/2024 1:56 PM JOINERY PATTERNMAKER) Blood us Sravan Le MD CHEMISTRY ORDERABLES Final Resu lt * CBC WITH DIFFERENTIAL (12/10/2024 10:31 AM JOINERY PATTERNMAKER) Blood Sravan Le MD HEMATOLOGY ORDERABLES Final Res ult from Last 3 Months Insurance MEDICARE PART A AND B MEDICARE PART A AND B [facility] [id number] Care Teams Fiber Machine Tender Relationship Specialty Start Date End Date Wilver Maldonado DO [address] [phone] PCP - General Internal Medicine 07/02/23
--- OUTSIDE RECORDS SUMMARY | 2025-02-03 13:33 | XMS_ITS | Clinical Summary ---
Author Organization [facility] Address [address] [place] [address] Phone Care Team Providers Care Metal Door Assembler Name Role Phone Gerry Cruz MD Primary Care Provider Allergies No known active allergies Medications metoprolol [...] on file Legal Sex Male 3:01 PM SEMICONDUCTOR PROCESSOR Gender Identity Not on file Sexual Orientation Not on file Last Filed Vital Signs Vital Sign Reading Time Taken Comments Blood Pressure 106/50 12/28/2016 7:00 AM SEMICONDUCTOR PROCESSOR Pulse 61 12/28/2016 7:00 AM SEMICONDUCTOR PROCESSOR Temperature 37.1 C (98.8 F) 12/28/2016 7:00 AM SEMICONDUCTOR PROCESSOR Respiratory Rate 20 12/28/2016 7:00 AM SEMICONDUCTOR PROCESSOR Oxygen Saturation 97% 12/28/2016 9:1 5 AM SEMICONDUCTOR PROCESSOR at rest and 96% with activity Inhaled Oxygen Concentration - - Weight 98.4 kg (217 lb) 12/25/2016 5:14 PM SEMICONDUCTOR PROCESSOR Height 170.2 cm (5' 7 ) 12/25/2016 5:14 PM SEMICONDUCTOR PROCESSOR Body Mass Index 33.99 12/25/2016 5:14 PM SEMICONDUCTOR PROCESSOR Plan of Treatment Health Maintenance Due Date [...] this topic Medical Devices Implanted Type Area Dental Chairside Assistant Device Identifier Shelf Expiration Date Model / Serial / Lot Cmnt Bn Endrn Sst Gnta 40gm Hvisc - [id number] Implanted:Qty: 2 on 12/25/2016 by Diego Diaz MD at [facility] IMPLANT Right: Knee [employer] / [employer] 05/18/2018 [id number] / / [id number] Implant Knee Patella Attune Medial Dome - [id number] Implanted:Qty: 1 on 12/25/2016 by Diego Diaz MD at [facility] IMPLANT Right: Knee [employer] / [employer] 09/18/2021 [id number] / / [id number] Attune Femoral Posterior Stabilized Implanted:Qty: 1 on 12/25/2016 by Diego Diaz MD at [facility] Right: Knee [employer] 02/16/2026 [id number] / / [id number] Attune Tibial Base Rotating Platform Implanted:Qty: 1 on 12/25/2016 by Diego Diaz MD at [facility] Right: Knee [employer] 11/18/2026 [id number] / / [id number] Attune Tibial Insert Rotating Platform Posterior Stabilized Implanted:Qty: 1 on 12/25/2016 by Diego Diaz MD at [facility] Right: Knee [employer] 09/18/2020 [id number] / / [id number] Insurance MEDICARE [facility] Advance Directives Documents on File Type Date Recorded Patient Associate Buyer Expl anation Power of Metal Mockup Maker for Health Care 12/26/2016 10:31 AM POA-HC * Full Code (Latest Code Status on File) Date Activated Date Inactivated Comments 12/26/2016 6:53 AM 12/28/2016 4:44 PM CPR-Full Treat ment: FULL ARREST: Attempt Resuscitation/CPR wit intubation and mechanical ventilation. PRE-ARREST: Use entire range of life support measures to stabilize the patient. Care Teams Metal Door Assembler Relationship Specialty Start Date End Date Gerry Cruz MD [address] [place] [phone] PCP - General Family Medicine 12/14/16
[2025-02-03 14:51] LABS: Macrocytosis 1+ (NORMAL); Schistocytes None Seen
[2025-02-03 14:52] LABS: Platelet Estimate Adequate (Adequate)
== END 2025-02-03 12:05 | disposition home or self-care (01) ==
PROVIDERS: PCP Nurse Practitioner; Visit Provider Internal Medicine
DX: D64.9 Anemia, unspecified (principal); I10 Essential (primary) hypertension; F10.10 Alcohol abuse, uncomplicated
CPT/HCPCS: 80053; 83735; 85025

== ENCOUNTER 2025-02-13 10:38 | Inpatient (IN) | payer MEDICARE, SELFPAY ==
[2025-02-13] VITALS (17 sets, daily range): BP systolic 84–113; BP diastolic 52–78; PULSE 75–101; RESP 11–20; TEMP 36.4–36.9; O2SAT 98–100; BMI 33.8
--- NOTE | ~2025-02-13 | CT_ITS ---
EXAMINATION: CT abdomen pelvis wo con DATE: 02/13/2025 12:23 INDICATION: Ascites TECHNIQUE: Computed tomography (CT) of the abdomen and pelvis was performed without intravenous contr ast. Automated exposure control and iterative reconstruction technique were employed. The dose-length product was 1261.86 mGy-cm. COMPARISON: 06/22/2025 FINDINGS: Small to moderate-sized posterior layering right pleural effusion and small left pleural effusion wit h dependent compressive atelectasis in the both lower lobes. There is additional discoid atelectasis in the dependent right middle lobe. Heart size is normal. Atherosclerotic coronary artery calcium loc ation. No pericardial effusion. Decreased attenuation blood pool relative to myocardium consistent wi th anemia. Cholecystectomy clips the gallbladder fossa. Liver, spleen, pancreas and bilateral adrenal glands are normal. Age-appropriate mild bilateral renal atrophy with no hydronephrosis. A few tiny nonobstructi ng renal stones in lower pole calyces of both kidneys. Bilateral ureteral stents in expected position with the proximal loops in the bilateral renal pelvises and distal loops in the bladder. No stones s een alongside the ureteral stents. Bladder is otherwise unremarkable. Bowels are unremarkable with no evident wall thickening or obstruction. Moderate amount of ascites throughout the abdomen and pelvis . There is also extensive body wall edema and mild mesenteric and retroperitoneal edema. Mild scatter ed degenerative changes in the spine and pelvis. Differential IVC filter. IMPRESSION: 1. Likely anasarca with small left and small to moderate-sized right pleural effusions, moderate amou nt of ascites and prominent body wall and less severe mesenteric and retroperitoneal edema. 2. Few tiny nonobstructing renal stones Multiple calyces of both kidneys with no hydronephrosis and bilateral internal ureteral stents in exp ected positions. 3. Infrarenal IVC filter. Reviewed, dictated and finalized at location B. IMPRESSION: 1. Likely anasarca with small left and small to moderate-sized right pleural ef fusions, moderate amount of ascites and prominent body wall and less severe mes enteric and retroperitoneal edema. 2. Few tiny nonobstructing renal stones Multiple calyces of both kidneys with no hydronephrosis and bilateral internal ureteral stents in expected positions. 3. Infrarenal IVC filter.
--- NOTE | ~2025-02-13 | US_ITS ---
EXAMINATION: US paracentesis abd w/image DATE: 02/16/2025 11:32 INDICATION: Ascites. TECHNIQUE: The procedure and its risks, benefits, and alternatives were discussed with the patient. P otential risks discussed included bleeding and infection. The skin was prepped and draped in sterile fashion. 1% lidocaine was used for local anesthesia. Under ultrasound guidance, a 5 Fr catheter with trochar was advanced into the ascites in the right lower quadrant. Fluid was aspirated. The catheter was removed, and a dressing was applied. There were no immediate complications. FINDINGS: Ultrasound images demonstrate ascites and the catheter within the fluid. IMPRESSION: 1. Successful ultrasound-guided paracentesis yielding 2650 mL of yellow fluid. Reviewed, dictated and finalized at location A.
--- NOTE | ~2025-02-13 | US_ITS ---
EXAM: ABDOMEN ULTRASOUND HISTORY: fluid overload COMPARISON: Reference is made to a CT examination of the abdomen and pelvis dated 02/13/2025 FINDINGS: LIVER: The liver is increased in echogenicity and unremarkable in size. The portal vein is patent without Doppler interrogation to exclude phasicity. No dedicated images of the contour of the liver, which appears nodular on limited views. GALLBLADDER: Surgically absent. BILE DUCTS: Common bile duct measures 5.2mm. PANCREAS: Limited evaluation of the pancreas secondary to overlying bowel gas Intra-abdominal ascites is noted. IMPRESSION: Fatty infiltration of the liver with a possible nodular contour. The portal vein is patent without Doppler interrogation to exclude phasicity. Intra-abdominal ascites is redemonstrated Reviewed, dictated and finalized at location A.
--- NOTE | ~2025-02-13 | XR_ITS ---
EXAMINATION: XR chest 2V DATE: 02/13/2025 12:00 INDICATION: Shortness of breath. TECHNIQUE: Frontal and lateral views of the chest were obtained. COMPARISON: Chest view 05/02/2024 FINDINGS: There are small pleural effusions, right worse than left. There are airspace opacities in t he right lower lung zone. No pneumothorax. Cardiomegaly is noted. There are numerous chronic punctate radiopaque foreign bodies in the anterior neck and left lateral chest wall. IMPRESSION: 1. Small pleural effusions, right worse than left. 2. Airspace opacities in right lower lung zone, consistent with atelectasis versus pneumonia. 3. Cardiomegaly. Reviewed, dictated and finalized at location A. IMPRESSION: 1. Small pleural effusions, right worse than left. 2. Airspace opacities in right lower lung zone, consistent with atelectasis jl yair pneumonia. 3. Cardiomegaly.
--- NOTE | 2025-02-13 11:07 | ECG_ITS ---
Test Date: 2025-02-13 11:22:38 Measurements Intervals [place] Rate: 83 P: 0 RI: 0 QRS: -81 QRSD: 200 T: 36 QT: 470 QTc: 554 Interpretive Statements ATRIAL FIBRILLATION RIGHT BUNDLE BRANCH BLOCK [120+ ms QRS DURATION, UPRIGHT V1, 40+ ms S IN I/aVL/V4/V5/V6] LEFT ANTERIOR FASCICULAR BLOCK [QRS AXIS <= -45, QR IN I, RS IN II] Compared to ECG 01/19/2025 10:28:19 NO SIGNFICANT CHANGES Electronically Signed On 02-13-2025 13:16:48 CDT by Kamla Llanes M.D.
[2025-02-13 11:20] LABS: Basophils Absolute Auto 0.1 K/mm3 (0.0-0.1); Basophils Percent Auto 0.9 % (0.2-1.2); Eosinophils Absolute Auto 0.4 K/mm3 (0-0.3); Eosinophils Percent Auto 5.1 % (0-4.4); Hematocrit 29.3 % (42.0-52.0); Hemoglobin 9.6 g/dL (14.0-18.0); Immature Granulocyte Absolute 0.02 K/mm3 (0.00-0.031); Immature Granulocyte Percent A 0.3 % (0-0.5); Lymphocytes Absolute Auto 1.02 K/mm3 (0.9-3.2); Lymphocytes Percent Auto 12.9 % (18.3-44.2); Mean Corpuscular HGB Conc 32.8 g/dl (32-36); Mean Corpuscular Hemoglobin 34.5 pg (26-34); Mean Corpuscular Volume 105.4 fl (80-100); Mean Platelet Volume 10.5 fl (7.4-10.4); Monocytes Absolute Auto 0.5 K/mm3 (0.1-0.6); Monocytes Percent Auto 6.2 % (2.6-8.5); Neutrophils Absolute Auto 5.9 K/mm3 (1.3-6.7); Neutrophils Percent Auto 74.6 % (45.5-73.1); Platelet Count Result 214 k/mm3 (150-375); Red Blood Count 2.78 M/mm3 (4.6-6.20); Red Cell Distribution Width 14.2 % (11.5-14.5); White Blood Count 7.9 K/mm3 (4.5-10.0)
[2025-02-13 11:32] LABS: Prothrombin Time 54.3 Seconds (11.1-14.7)
[2025-02-13 11:33] LABS: Partial Thromboplastin Time 67.8 Seconds (22.3-36.8)
--- OUTSIDE RECORDS SUMMARY | 2025-02-13 11:34 | XMS_ITS ---
Author Name Adam Freire Address [address] [place] [address] Phone [phone] [employer] Address [address] [place] [address] Phone [phone] Care Team Providers Care Host Hostess Name Role Phone Adam Freire Unavailable Functional Status No Results Mental Status No Results Allergies and Intolerances No Known Allergies Medications Medication Directions Start Date End Date ZyrTEC 10 mg tablet 10mg TABLET Oral 1 T purnima Daily for 14 Days itching Sat Jan 06 09:00:00 2016Jan 09 01:00:00 2016 ZyrTEC 10 mg tablet 10mg TABLET Oral PRN Every 24 Hours itching SunJan 19 09:00:00 2016Jan 09 01:00:00 2016 triamcinolone acetonide 0.1 % topical cream 0.1% CREAM (GRAM) Topical 2 Times Daily for 14 Days itching Sat Jan 06 09:00:00 2016Jan 09:00:00 2016 metoprolol tartrate 25 mg tablet 12.5mg TABLET Oral 2 Times Daily Sat b 18 09:00:00 2016Jan 09 01:00:00 EST 2016 multivitamin with minerals tablet 1 tablet TABLET Oral 1 Time Daily supplement Sat Dec 11 09:30:00 2016Jan 09 01:00:00 EST 2016 TUBErsol 5 tub. unit/0.1 mL intradermal injection solution 0.1 ml VIAL (ML) Intradermal 1 Time Weekly for 2 Weeks (PPD) 1st injection upon admission. Read after 72 hours and give 2nd injection 1 week after the 1st if result is negative. If positive result, proceed with chest x-ray to rule out active disease. Fri Feb 10 13:00:00 EST 2016Jan 09 01:00:00 EST 2017 TUBErsol 5 tub. unit/0.1 mL intradermal injection solution Read Results VIAL (ML) Other 1 Time Weekly for 2 Weeks Read results 72 hours after 1st and 2nd 1 week apart. If positive do chest x-ray to rule out active disease. Sun Feb 10 13:00:00 EST 2016Jan 09 01:00:00 EST 2016 OxyCONTIN 20 mg tablet,extended release 20mg TABLET, EXTENDED RELEASE 12 HR Oral 2 Times Daily for 10 Days Sunb 21:00:00 EST 2016 Feb 19 20:59:00 EST 2017 oxyCODONE-acetaminophen 5 mg-325 mg tablet 5-325 mg 5/325 mg TABLET Oral PRN Every 6 Hours 1-2 tablets Sunb 18:00:00 EST 2016Jan 09 01:00:00 EST 2017 docusate sodium 100 mg capsule 100mg CAPSULE Oral 2 Times Daily constipation Sunb 21:00:00 EST 2016 Sat Feb 11 15:28:00 EST 2017 ondansetron 4 mg disintegrating tablet 4mg TABLET,DISINTEGRATING Oral PRN Every 6 Hours nausea /vomiting Sunb 19:00:00 EST 2016 Fri Feb 10 09:43:00 EST 2017 Miralax 17 gram/dose oral powder 17 gm POWDER (GRAM) Oral 1 Time Daily Fri Feb 10 09:00:00 EST 2017 Sat Feb 11 15:28:00 EST 2017 amLODIPine 10 mg tablet 10mg TABLET Oral 1 Time Daily Fri Feb 10 09:00:00 EST 2016b 01:00:00 EST 2016 famotidine 10 mg tablet 10mg TABLET Oral 2 Times Daily Fri Feb 10 09:00:00 EST 2016Jan 09 01:00:00 EST 2016 iron 325 mg (65 mg iron) tablet 325mg TABLET Oral 1 Time Daily Fri Feb 10 09:00:00 EST 2016 Sat Feb 11 15:28:00 EST 2016 metoprolol tartrate 25 mg tablet 25mg TABLET Oral 2 Times Daily Fri Feb 10 09:00:00 EST 2016 Fri Feb 17 18:07:00 EST 2016 Xarelto 20 mg tablet 20mg TABLET Oral 1 Time Daily daily with dinner SunDec 29 18:00:00 EST 2016Jan 09 01:00:00 EST 2016 Problems Active Concerns * Encounter for surgical aftercare following surgery on the digestive system* Code: * Start Date: SunDec 25 00:00:00 2015 * End Date: * Text: * Acquired absence of other specified parts of digestive tract* Code: * Start Date: SunDec 25 00:00:00 2015 * End Date: * Text: * Postprocedural hemorrhage of a digestive system organ or structure following other procedure* Code: * Start Date: SunDec 25 00:00:00 2015 * End Date: * Text: * Presence of other specified devices* Code: * Start Date: SunDec 25 00:00:00 2015 * End Date: * Text: * Acute embolism and thrombosis of unspecified deep veins of left lower extremity* Code: * Start Date: SunDec 25 00:00:00 2015 * End Date: * Text: * Presence of other vascular implants and grafts* Code: * Start Date: SunDec 25 00:00:00 2015 * End Date: * Text: * Aftercare following joint replacement surgery* Code: * Start Date: SunDec 25 00:00:00 2015 * End Date: * Text: * Presence of left artificial knee joint* Code: * Start Date: SunDec 25 00:00:00 2015 * End Date: * Text: * Unspecified osteoarthritis, unspecified site* Code: * Start Date: SunDec 25 00:00:00 2015 * End Date: * Text: * Unspecified atrial fibrillation* Code: * Start Date: SunDec 25 00:00:00 2015 * End Date: * Text: * Anemia, unspecified* Code: * Start Date: SunDec 25 00:00:00 2015 * End Date: * Text: * Essential (primary) hypertension* Code: * Start Date: SunDec 25 00:00:00 2015 * End Date: * Text: * Pressure ulcer of unspecified buttock, unspecified stage* Code: * Start Date: SunDec 25 00:00:00 2015 * End Date: * Text: * Unspecified abnormalities of gait and mobility* Code: * Start Date: SunDec 25 00:00:00 2015 * End Date: * Text: * Muscle weakness (generalized)* Code: * Start Date: SunDec 25 00:00:00 2015 * End Date: * Text: * Idiopathic gout, unspecified site* Code: * Start Date: SunDec 25 00:00:00 2015 * End Date: * Text: * Alcohol dependence, uncomplicated* Code: * Start Date: SunDec 25 00:00:00 2015 * End Date: * Text: * Urinary tract infection, site not specified* Code: * Start Date: SunJan 07 00:00:00 2015 * End Date: * Text: * Presence of right artificial knee joint* Code: * Start Date: SunDec 28 00:00:00 2016 * End Date: * Text: * Hypertensive heart and chronic kidney disease with heart failure and stage 1 through stage 4 chronic kidney disease, or unspecified chronic kidney disease * Code: * Start Date: SunDec 28 00:00:00 2016 * End Date: * Text: * Chronic kidney disease, stage 2 (mild)* Code: * Start Date: SunDec 28 00:00:00 2016 * End Date: * Text: * Iron deficiency anemia, unspecified* Code: * Start Date: SunDec 28 00:00:00 2016 * End Date: * Text: * Gastro-esophageal reflux disease without esophagitis* Code: * Start Date: SunDec 28 00:00:00 2016 * End Date: * Text: * Other specified abnormal findings of blood chemistry* Code: * Start Date: SunDec 28 00:00:00 2016 * End Date: * Text: * Personal history of pulmonary embolism* Code: * Start Date: SunDec 28 00:00:00 2016 * End Date: * Text: * Hypothyroidism, unspecified* Code: * Start Date: SunDec 28 00:00:00 2016 * End Date: * Text: * Gout, unspecified* Code: * Start Date: SunDec 28 00:00:00 2016 * End Date: * Text: * Dermatitis, unspecified* Code: * Start Date: SunDec 28 00:00:00 2016 * End Date: * Text: * Allergic contact dermatitis, unspecified cause* Code: * Start Date: SunDec 28 00:00:00 EST 2016 * End Date: * Text: Reason for Referral Past Medical History
--- OUTSIDE RECORDS SUMMARY | 2025-02-13 11:34 | XMS_ITS | Clinical Summary ---
Author Organization [facility] [address] [facility] [place] Address [address] [place] [address] Care Team Providers Care Access Rep Name Role Phone Wilver Maldonado DO Primary Care Provider [phone] Allergies Active Allergy Reactions Criticality Noted Date [...] 1 tablet (50 mcg total) by mouth corsetier before breakfast Active thiamine (VITAMIN B-1) 100 [...] Description 12/03/2024 Telephone [facility] [address] [facility] [address] [place] [phone] Tye Kirby III, MD Scheduling Appointments 12/01/2024 Telephone [facility] Cardiology [address] [facility] [address] [place] [phone] Lou Kent NP 11/28/2024 11:30 AM MASTER ESTHETICIAN Office Visit [facility] Cardiology [address] [place] [address] Lou Kent NP Paroxysmal atrial fibrillation (HCC); snf current use of amiodarone; Chronic anticoagulation; Lipid screening 11/28/2024 Telephone [facility] Cardiology [address] [place] [address] Lou Kent NP from Last 3 Months Surgical History Surgery Date Site/Laterality Comments OTHER SURGICAL HISTORY orif rt ankle INGUINAL HERNIA REPAIR Right Inguinal Hernia repair KNEE ARTHROPLASTY Left Knee replacement LAPAROSCOPIC CHOLECYSTECTOMY 2015 Cholecystectomy, laparoscopic Medical History Medical History Date Comments Gout Gout Deep vein thrombosis (DVT) (HCC) Deep venous thrombosis Hypertension Hypertension Atrial fibrillation (HCC) Atrial fibrillation; Comments: GDS 01/05/2016 - Hx [...] on file Legal Sex Male 8:58 PM MASTER ESTHETICIAN Gender Identity Not on file Sexual Orientation Not on file Obstetrics History Last Filed Vital Signs Vital Sign Reading Time Taken Comments Blood Pressure 96/60 11/28/2024 11:22 AM MASTER ESTHETICIAN Pulse 90 11/28/2024 11:22 AM MASTER ESTHETICIAN Temperature - - Respiratory Rate 12 01/20/2021 7:46 AM MASTER ESTHETICIAN Oxygen Saturation 98% 11/28/2024 11:22 AM MASTER ESTHETICIAN Inhaled Oxygen Concentration - - Weight 82.6 kg (182 lb) 11/28/2024 11:22 AM MASTER ESTHETICIAN Height 170.2 cm (5' 7 ) 11/28/2024 11:22 AM MASTER ESTHETICIAN Body Mass Index 28.51 11/28/2024 11:22 AM MASTER ESTHETICIAN Plan of Treatment Health Maintenance Due Date [...] Comments ECG 12-LEAD Routine 11/28/2024 11:32 AM MASTER ESTHETICIAN Paroxysmal atrial fibrillation (HCC) POCT LIPID PANEL Routine 11/28/2024 11:3 2 AM MASTER ESTHETICIAN Lipid screening HEMOGLOBIN AND HEMATOCRIT Routine 11/28/2024 Chronic anticoagulation THYROID FUNCTION CASCADE Routine 11/28/2024 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 helper termite current use of amiodarone from Last 3 Months Results * POCT lipid panel (11/28/2024 11:32 AM MASTER ESTHETICIAN) Cholesterol, POC 159 mg/dL HDL, POC 61 mg/dL Triglycerides, POC 83 mg/dL LDL Cholesterol POC 81 mg/dL Chol/HDL Ratio, POC 1.3 Non-HDL Cholesterol, POC 97 mg/dL Cholesterol Total, POC 159 mg/dL Capillary blood 11/28/2024 1 1:32 AM MASTER ESTHETICIAN Lou Kent NP POINT OF CARE TEST ORDERA BLES Final Result * ECG 12 lead (11/28/2024 11:32 AM MASTER ESTHETICIAN) 11/28/2024 11:3 2 AM MASTER ESTHETICIAN Lou Kent NP ECG ORDERABLES Edited Re sult - Final * Thyroid Function [place] (11/28/2024) Blood 11/28/2024 Lou Valerie Yoli INSPECTING AND TESTING LEAD HAND LAB BLOOD ORDERABLES Marisela l Result EXTERNAL LAB * (ABNORMAL) Hemoglobin and hematocrit (11/28/2024) SCRIBED Hemoglobin 12.2(A) 14.0 - 18.0 g/dL EXTERNAL LAB SCRIBED Hematocrit 36.4(A) 42.0 - 52.0 % EXTERNAL LAB Blood 11/28/2024 Lou Valerie Yoli INSPECTING AND TESTING LEAD HAND LAB BLOOD ORDERABLES Marisela l Result EXTERNAL LAB from Last 3 Months Insurance MEDICARE [facility] MEDICARE [employer] Care Teams Access Rep Relationship Specialty Start Date End Date Wilver Maldonado DO PCP - General Internal Medicine 07/12/23
--- OUTSIDE RECORDS SUMMARY | 2025-02-13 11:34 | XMS_ITS | Clinical Summary ---
Author Organization [facility] Address [address] [place] [address] Phone Care Team Providers Care Paralegal Legal Secretary Name Role Phone Wilver Maldonado DO Primary [...] Encounters Date Type Department Care Team Description 02/04/2025 External Device Data ST[facility] ABSTRACTION Provider, Abstract 01/24/2025 External Device Data [facility] ABSTRACTION Provider, Abstract 01/23/2025 External Device Data [facility] ABSTRACTION Provider, Abstract 01/06/2025 External Device Data [facility] ABSTRACTION Provider, Abstract 12/17/2024 Orders Only [facility] Oncology and Hematology - [place] [address] [place] [address] Sravan Le MD 12/15/2024 Orders Only [facility] Oncology and Hematology - [place] [address] [place] [address] Sravan Le MD 12/12/2024 Orders Only [facility] Oncology and Hematology - [place] [address] [place] [address] Sravan Le MD 12/10/2024 External Device Data [...] on file Legal Sex Male 9:11 AM CUSTOM MARINE CANVAS FABRICATOR Gender Identity Not on file Sexual Orientation [...] Description 04/14/2025 3:45 PM CDT Office Visit [facility] Oncology and Hematology - [place] [address] [place] [address] Sravan Le MD [address] [facility] [address] [place] [address] Health Maintenance Due Date Last [...] TESTOSTERONE FREE Routine 12/10/2024 2:2 8 PM CUSTOM MARINE CANVAS FABRICATOR COMPREHENSIVE METABOLIC PANEL Routine 12/10/2024 1:56 PM CUSTOM MARINE CANVAS FABRICATOR CBC WITH DIFFERENTIAL Routine 12/10/2024 10:31 AM CUSTOM MARINE CANVAS FABRICATOR from Last 3 Months Results * TESTOSTERONE FREE (12/10/2024 2:28 PM CUSTOM MARINE CANVAS FABRICATOR) Blood Sravan Le MD CHEMISTRY ORDERABLES Final Resu lt * COMPREHENSIVE METABOLIC PANEL (12/10/2024 1:56 PM CUSTOM MARINE CANVAS FABRICATOR) Blood Sravan Le MD CHEMISTRY ORDERABLES Final Resu lt * CBC WITH DIFFERENTIAL (12/10/2024 10:31 AM CUSTOM MARINE CANVAS FABRICATOR) Blood Sravan Le MD HEMATOLOGY ORDERABLES Final Res ult from Last 3 Months Insurance MEDICARE PART A AND B [facility] [place] [id number] MEDICARE PART A AND B [facility] [id number] Care Teams Paralegal Legal Secretary Relationship Specialty Start Date End Date Wilver Maldonado DO [address] [facility] [address] [place] [phone] PCP - General Internal Medicine 07/02/23
--- OUTSIDE RECORDS SUMMARY | 2025-02-13 11:34 | XMS_ITS | Referral Summary ---
Author Organization [address] [facility] Address [address] [place] [phone] Care Team Providers Care Podiatric Medicine Professor Name Role Phone Wilver Maldonado DO Primary Care Provider [phone] Encounters Date Type Department Care Team Description 12/03/2024 Telephone [facility] [address] [facility] [address] [place] [phone] Tye Kirby III, MD Scheduling Appointments 12/01/2024 Telephone [facility] Cardiology [address] [place] [address] [place] [phone] Lou Kent NP 11/28/2024 Telephone [facility] Cardiology [address] [place] [address] [place] [phone] Lou Kent NP 11/28/2024 11:30 AM ANIMAL CHIROPRACTOR Office Visit [facility] Cardiology [address] [place] [phone] Lou Kent NP Paroxysmal atrial fibrillation (HCC); detention current use of amiodarone; Chronic anticoagulation; Lipid screening from Last 3 Months Allergies Active Allergy [...] 1 tablet (50 mcg total) by mouth eye specialist before breakfast Active thiamine (VITAMIN B-1) [...] on file Legal Sex Male 8:58 PM ANIMAL CHIROPRACTOR Gender Identity Not on file Sexual Orientation Not on file Last Filed Vital Signs Vital Sign Reading Time Taken Comments Blood Pressure 96/60 11/28/2024 11:22 AM ANIMAL CHIROPRACTOR Pulse 90 11/28/2024 11:22 AM ANIMAL CHIROPRACTOR Temperature - - Respiratory Rate 12 01/20/2021 7:46 AM ANIMAL CHIROPRACTOR Oxygen Saturation 98% 11/28/2024 11:22 AM ANIMAL CHIROPRACTOR Inhaled Oxygen Concentration - - Weight 82.6 kg (182 lb) 11/28/2024 11:22 AM ANIMAL CHIROPRACTOR Height 170.2 cm (5' 7 ) 11/28/2024 11:22 AM ANIMAL CHIROPRACTOR Body Mass Index 28.51 11/28/2024 11:22 AM ANIMAL CHIROPRACTOR Plan of Treatment Not on file Procedures Procedure Name Priority Date/Time Associated Diagnosis Comments ECG 12-LEAD Routine 11/28/2024 11:32 AM ANIMAL CHIROPRACTOR Paroxysmal atrial fibrillation (HCC) POCT LIPID PANEL Routine 11/28/2024 11:3 2 AM ANIMAL CHIROPRACTOR Lipid screening HEMOGLOBIN AND HEMATOCRIT Routine 11/28/2024 Chronic anticoagulation THYROID FUNCTION CASCADE Routine 11/28/2024 detention current use of amiodarone from Last 3 Months Results * POCT lipid panel (11/28/2024 11:32 AM ANIMAL CHIROPRACTOR) Cholesterol, POC 159 mg/dL HDL, POC 61 mg/dL Triglycerides, POC 83 mg/dL LDL Cholesterol POC 81 mg/dL Chol/HDL Ratio, POC 1.3 Non-HDL Cholesterol, POC 97 mg/dL Cholesterol Total, POC 159 mg/dL Capillary blood 11/28/2024 1 1:32 AM ANIMAL CHIROPRACTOR Lou Kent NP POINT OF CARE TEST ORDERA BLES Final Result * ECG 12 lead (11/28/2024 11:32 AM ANIMAL CHIROPRACTOR) 11/28/2024 11:3 2 AM ANIMAL CHIROPRACTOR Lou Kent PROTOTYPE MODEL MAKER ECG ORDERABLES Edited Re sult - Final * Thyroid Function [place] (11/28/2024) Blood 11/28/2024 Lou Kent PROTOTYPE MODEL MAKER LAB BLOOD ORDERABLES Marisela l Result Performing Organization Address City/[facility]/ZIP Co de Phone Number EXTERNAL LAB * (ABNORMAL) Hemoglobin and hematocrit (11/28/2024) SCRIBED Hemoglobin 12.2(A) 14.0 - 18.0 g/dL EXTERNAL LAB SCRIBED Hematocrit 36.4(A) 42.0 - 52.0 % EXTERNAL LAB Blood 11/28/2024 Lou Kent NP LAB BLOOD ORDERABLES Marisela l Result EXTERNAL LAB from Last [address] [facility] MEDICARE [facility] Care Teams Podiatric Medicine Professor Relationship Specialty Start Date End Date Wilver Maldonado DO PCP - General Internal Medicine 07/12/23
--- OUTSIDE RECORDS SUMMARY | 2025-02-13 11:34 | XMS_ITS | Clinical Summary ---
Author Organization [facility] Address [address] [place] [address] Phone Care Team Providers Care Primary Substance Abuse Counselor Name Role Phone Gerry Cruz MD Primary Care Provider [phone] Allergies No known active allergies Medications metoprolol [...] on file Legal Sex Male 3:01 PM FORENSIC MATERIALS ENGINEER Gender Identity Not on file Sexual Orientation Not on file Last Filed Vital Signs Vital Sign Reading Time Taken Comments Blood Pressure 106/50 12/28/2016 7:00 AM FORENSIC MATERIALS ENGINEER Pulse 61 12/28/2016 7:00 AM FORENSIC MATERIALS ENGINEER Temperature 37.1 C (98.8 F) 12/28/2016 7:00 AM FORENSIC MATERIALS ENGINEER Respiratory Rate 20 12/28/2016 7:00 AM FORENSIC MATERIALS ENGINEER Oxygen Saturation 97% 12/28/2016 9:1 5 AM FORENSIC MATERIALS ENGINEER at rest and 96% with activity Inhaled Oxygen Concentration - - Weight 98.4 kg (217 lb) 12/25/2016 5:14 PM FORENSIC MATERIALS ENGINEER Height 170.2 cm (5' 7 ) 12/25/2016 5:14 PM FORENSIC MATERIALS ENGINEER Body Mass Index 33.99 12/25/2016 5:14 PM FORENSIC MATERIALS ENGINEER Plan of Treatment Health Maintenance Due Date [...] this topic Medical Devices Implanted Type Area Visiting Nurse Device Identifier Shelf Expiration Date Model / Serial / Lot Cmnt Bn Endrn Sst Gnta 40gm Hvisc - [id number] Implanted:Qty: 2 on 12/25/2016 by Diego Diaz MD at [facility] IMPLANT Right: Knee [employer] / [employer] 05/18/2018 [id number] / / [id number] Implant Knee Patella Attune Medial Dome - [id number] Implanted:Qty: 1 on 12/25/2016 by Diego Diaz MD at [facility] IMPLANT Right: Knee [employer] / [employer] 09/18/2021 [id number] / / [id number] Attune Femoral Posterior Stabilized Implanted:Qty: 1 on 12/25/2016 by Diego Diaz MD at [facility] Right: Knee [employer] 02/16/2026 [id number] / / [id number] Attune Tibial Base Rotating Platform Implanted:Qty: 1 on 12/25/2016 by Diego Diaz MD at [facility] Right: Knee [employer] 11/18/2026 [id number] / / [id number] Attune Tibial Insert Rotating Platform Posterior Stabilized Implanted:Qty: 1 on 12/25/2016 by Diego Diaz MD at [facility] Right: Knee [employer] 09/18/2020 [id number] / / [id number] Insurance MEDICARE [facility] Advance Directives Documents on File Type Date Recorded Patient Plastic Sheeting Cutter Expl anation Power of Rounder And Backer for Health Care 12/26/2016 10:31 AM POA-HC * Full Code (Latest Code Status on File) Date Activated Date Inactivated Comments 12/26/2016 6:53 AM 12/28/2016 4:44 PM CPR-Full Treat ment: FULL ARREST: Attempt Resuscitation/CPR wit intubation and mechanical ventilation. PRE-ARREST: Use entire range of life support measures to stabilize the patient. Care Teams Primary Substance Abuse Counselor Relationship Specialty Start Date End Date Gerry Cruz MD [address] [place] [phone] PCP - General Family Medicine 12/14/16
[2025-02-13 11:46] LABS: Hypochromasia 1+; Platelet Estimate Adequate (Adequate); Schistocytes None Seen
[2025-02-13 11:47] LABS: Alanine Aminotransferase 21 U/L (6-50); Albumin Level 2.6 g/dL (3.5-5.1); Alkaline Phosphatase 301 U/L (38-126); Anion Gap 10 mmol/L (4-12); Aspartate Amino Transferase 49 U/L (17-59); Bilirubin,Total 1.5 mg/dL (0.2-1.3); Blood Urea Nitrogen 22 mg/dL (9-20); Calcium 7.9 mg/dL (8.4-10.2); Carbon Dioxide 23 mmol/L (22-30); Chloride 98 mmol/L (98-107); Estimated CRCL calculation 38 ml/min; Estimated Glomerular Filt Rate 39; Glucose 101 mg/dL (65-110); Macrocytosis 1+ (NORMAL); Potassium 4.1 mmol/L (3.4-5.0); Sodium 131 mmol/L (137-145)
[2025-02-13 12:00] LABS: NT Pro B Type Natriuretic Pept 3870 pg/mL (19.9-100); Troponin I < 0.012 ng/mL (0.000-0.034)
--- OUTSIDE RECORDS SUMMARY | 2025-02-13 12:29 | XMS_ITS | Clinical Summary ---
Author Organization [facility] [address] [facility] Address [address] [place] [address] Care Team Providers Care Tube Pusher Name Role Phone Wilver Maldonado DO Primary Care Provider [phone] Allergies Active Allergy Reactions Criticality Noted Date [...] tablet (50 mcg total) by mouth early childhood worker before breakfast Active thiamine (VITAMIN B-1) 100 [...] Description 12/03/2024 Telephone [facility] [address] [facility] [address] [place] [phone] Tye Kirby III, MD Scheduling Appointments 12/01/2024 Telephone [facility] Cardiology [address] [place] [phone] Lou Kent NP 11/28/2024 11:30 AM OPS MANAGER Office Visit [facility] Cardiology [address] [place] [address] Lou Kent NP Paroxysmal atrial fibrillation (HCC); nursing home current use of amiodarone; Chronic anticoagulation; Lipid screening 11/28/2024 Telephone [facility] Cardiology [address] [place] [address] Lou Kent NP from Last [...] on file Legal Sex Male 8:58 PM OPS MANAGER Gender Identity Not on file Sexual Orientation Not on file Obstetrics History Last Filed Vital Signs Vital Sign Reading Time Taken Comments Blood Pressure 96/60 11/28/2024 11:22 AM OPS MANAGER Pulse 90 11/28/2024 11:22 AM OPS MANAGER Temperature - - Respiratory Rate 12 01/20/2021 7:46 AM OPS MANAGER Oxygen Saturation 98% 11/28/2024 11:22 AM OPS MANAGER Inhaled Oxygen Concentration - - Weight 82.6 kg (182 lb) 11/28/2024 11:22 AM OPS MANAGER Height 170.2 cm (5' 7 ) 11/28/2024 11:22 AM OPS MANAGER Body Mass Index 28.51 11/28/2024 11:22 AM OPS MANAGER Plan of Treatment Health Maintenance Due Date [...] Comments ECG 12-LEAD Routine 11/28/2024 11:32 AM OPS MANAGER Paroxysmal atrial fibrillation (HCC) POCT LIPID PANEL Routine 11/28/2024 11:3 2 AM OPS MANAGER Lipid screening HEMOGLOBIN AND HEMATOCRIT Routine 11/28/2024 Chronic anticoagulation THYROID FUNCTION CASCADE Routine 11/28/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 from Last 3 Months Results * POCT lipid panel (11/28/2024 11:32 AM OPS MANAGER) Cholesterol, POC 159 mg/dL HDL, POC 61 mg/dL Triglycerides, POC 83 mg/dL LDL Cholesterol POC 81 mg/dL Chol/HDL Ratio, POC 1.3 Non-HDL Cholesterol, POC 97 mg/dL Cholesterol Total, POC 159 mg/dL Capillary blood 11/28/2024 1 1:32 AM OPS MANAGER Lou Kent NP POINT OF CARE TEST ORDERA BLES Final Result * ECG 12 lead (11/28/2024 11:32 AM OPS MANAGER) 11/28/2024 11:3 2 AM OPS MANAGER Lou Kent NP ECG ORDERABLES Edited Re sult - Final * Thyroid Function [place] (11/28/2024) Blood 11/28/2024 Lou Valerie Yoli AUTO CLUB SAFETY PROGRAM COORDINATOR LAB BLOOD ORDERABLES Marisela l Result EXTERNAL LAB * (ABNORMAL) Hemoglobin and hematocrit (11/28/2024) SCRIBED Hemoglobin 12.2(A) 14.0 - 18.0 g/dL EXTERNAL LAB SCRIBED Hematocrit 36.4(A) 42.0 - 52.0 % EXTERNAL LAB Blood 11/28/2024 Lou Valerie Yoli AUTO CLUB SAFETY PROGRAM COORDINATOR LAB BLOOD ORDERABLES Marisela l Result EXTERNAL LAB from Last 3 Mon[place] [address] [facility] [address] [employer] Care Teams Tube Pusher Relationship Specialty Start Date End Date Wilver Maldonado DO PCP - General Internal Medicine 07/12/23
--- OUTSIDE RECORDS SUMMARY | 2025-02-13 12:29 | XMS_ITS | Clinical Summary ---
Author Organization [facility] Address [address] [place] [address] Phone Care Team Providers Care Automotive Drivability Technician Name Role Phone Wilver Maldonado DO Primary [...] STL ABSTRACTION Provider, Abstract 12/17/2024 Orders Only [facility] Oncology and Hematology - [place] [address] [place] [address] Sravan Le MD 12/15/2024 Orders Only [facility] Oncology and Hematology - [place] [address] [place] [address] Sravan Le MD 12/12/2024 Orders Only [facility] Oncology and Hematology - [place] [address] [place] [address] Sravan Le MD 12/10/2024 External Device Data [...] on file Legal Sex Male 9:11 AM FLIGHT AGENT Gender Identity Not on file Sexual Orientation [...] Description 04/14/2025 3:45 PM CDT Office Visit [facility] Oncology and Hematology - [place] [address] [place] [address] Sravan Le MD [address] [place] [address] Health Maintenance Due Date Last [...] TESTOSTERONE FREE Routine 12/10/2024 2:2 8 PM FLIGHT AGENT COMPREHENSIVE METABOLIC PANEL Routine 12/10/2024 1:56 PM FLIGHT AGENT CBC WITH DIFFERENTIAL Routine 12/10/2024 10:31 AM FLIGHT AGENT from Last 3 Months Results * TESTOSTERONE FREE (12/10/2024 2:28 PM FLIGHT AGENT) Blood Sravan Le MD CHEMISTRY ORDERABLES Final Resu lt * COMPREHENSIVE METABOLIC PANEL (12/10/2024 1:56 PM FLIGHT AGENT) Blood Sravan Le MD CHEMISTRY ORDERABLES Final Resu lt * CBC WITH DIFFERENTIAL (12/10/2024 10:31 AM FLIGHT AGENT) Blood Sravan Le MD HEMATOLOGY ORDERABLES Final Res ult from Last 3 Months Insurance MEDICARE PART A AND B [facility] [place] [id number] MEDICARE PART A AND B [facility] [id number] Care Teams Automotive Drivability Technician Relationship Specialty Start Date End Date Wilver Maldonado DO [address] [facility] [address] [place] [id number] PCP - General Internal Medicine 07/02/23
--- OUTSIDE RECORDS SUMMARY | 2025-02-13 12:29 | XMS_ITS ---
Author Name Adam Freire Address [address] [facility] [address] [place] [address] Phone [phone] Organization [facility] ice Address [address] [place] [address] Phone [phone] Care Team Providers Care General Assembler Name Role Phone Adam Freire Unavailable Functional Status Mental Status Allergies and Intolerances Medications Problems Reason for Referral Past Medical History
--- OUTSIDE RECORDS SUMMARY | 2025-02-13 12:29 | XMS_ITS | Clinical Summary ---
Author Organization [facility] Address [address] [place] [address] Phone Care Team Providers Care Gambling Broker Name Role Phone Gerry Cruz MD Primary Care Provider [phone] Allergies No known active allergies Medications metoprolol [...] on file Legal Sex Male 3:01 PM DERMATOLOGY PHYSICIAN Gender Identity Not on file Sexual Orientation Not on file Last Filed Vital Signs Vital Sign Reading Time Taken Comments Blood Pressure 106/50 12/28/2016 7:00 AM DERMATOLOGY PHYSICIAN Pulse 61 12/28/2016 7:00 AM DERMATOLOGY PHYSICIAN Temperature 37.1 C (98.8 F) 12/28/2016 7:00 AM DERMATOLOGY PHYSICIAN Respiratory Rate 20 12/28/2016 7:00 AM DERMATOLOGY PHYSICIAN Oxygen Saturation 97% 12/28/2016 9:1 5 AM DERMATOLOGY PHYSICIAN at rest and 96% with activity Inhaled Oxygen Concentration - - Weight 98.4 kg (217 lb) 12/25/2016 5:14 PM DERMATOLOGY PHYSICIAN Height 170.2 cm (5' 7 ) 12/25/2016 5:14 PM DERMATOLOGY PHYSICIAN Body Mass Index 33.99 12/25/2016 5:14 PM DERMATOLOGY PHYSICIAN Plan of Treatment Health Maintenance Due Date [...] this topic Medical Devices Implanted Type Area Ordnance Technician Device Identifier Shelf Expiration Date Model / Serial / Lot Cmnt Bn Endrn Sst Gnta 40gm Hvisc - [id number] Implanted:Qty: 2 on 12/25/2016 by Diego Diaz MD at [facility] IMPLANT Right: Knee JN[employer] / [employer] 05/18/2018 [id number] / / [id number] Implant Knee Patella Attune Medial Dome - [id number] Implanted:Qty: 1 on 12/25/2016 by Diego Diaz MD at [facility] IMPLANT Right: Knee [employer] / [employer] 09/18/2021 [id number] / / [id number] Attune Femoral Posterior Stabilized Implanted:Qty: 1 on 12/25/2016 by Diego Diaz MD at [facility] Right: Knee [employer] 02/16/2026 [id number] / / [id number] Attune Tibial Base Rotating Platform Implanted:Qty: 1 on 12/25/2016 by Diego Diaz MD at [facility] Right: Knee [employer] 11/18/2026 [id number] / / [id number] Attune Tibial Insert Rotating Platform Posterior Stabilized Implanted:Qty: 1 on 12/25/2016 by Diego Diaz MD at [facility] Right: Knee [employer] 09/18/2020 [id number] / / [id number] Insurance MEDICARE [facility] Advance Directives Documents on File Type Date Recorded Patient Cover Creaser Expl anation Power of Rn Ortho for Health Care 12/26/2016 10:31 AM POA-HC * Full Code (Latest Code Status on File) Date Activated Date Inactivated Comments 12/26/2016 6:53 AM 12/28/2016 4:44 PM CPR-Full Treat ment: FULL ARREST: Attempt Resuscitation/CPR wit intubation and mechanical ventilation. PRE-ARREST: Use entire range of life support measures to stabilize the patient. Care Teams Gambling Broker Relationship Specialty Start Date End Date Gerry Cruz MD [address] [place] [phone] PCP - General Family Medicine 12/14/16
--- OUTSIDE RECORDS SUMMARY | 2025-02-13 12:29 | XMS_ITS | Referral Summary ---
Author Organization [address] [facility] Address [address] [place] [phone] Care Team Providers Care Plumber Apprentice Name Role Phone Wilver Maldonado DO Primary Care Provider [phone] Encounters Date Type Department Care Team Description 12/03/2024 Telephone [facility] [address] [facility] [address] [place] [phone] Tye Kirby III, MD Scheduling Appointments 12/01/2024 Telephone [facility] Medical [facility] Cardiology [address] [place] [address] [place] [phone] Lou Kent NP 11/28/2024 Telephone [facility] Medical [facility] Cardiology [address] [place] [address] [place] [phone] Lou Kent NP 11/28/2024 11:30 AM CALL CENTER COORDINATOR Office Visit [facility] Medical [facility] Cardiology [address] [place] [phone] Lou Kent NP Paroxysmal atrial fibrillation (HCC); prison current use of amiodarone; Chronic anticoagulation; Lipid [...] 1 tablet (50 mcg total) by mouth community 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 therapist before breakfast Active thiamine (VITAMIN B-1) 100 [...] on file Legal Sex Male 8:58 PM CALL CENTER COORDINATOR Gender Identity Not on file Sexual Orientation Not on file Last Filed Vital Signs Vital Sign Reading Time Taken Comments Blood Pressure 96/60 11/28/2024 11:22 AM CALL CENTER COORDINATOR Pulse 90 11/28/2024 11:22 AM CALL CENTER COORDINATOR Temperature - - Respiratory Rate 12 01/20/2021 7:46 AM CALL CENTER COORDINATOR Oxygen Saturation 98% 11/28/2024 11:22 AM CALL CENTER COORDINATOR Inhaled Oxygen Concentration - - Weight 82.6 kg (182 lb) 11/28/2024 11:22 AM CALL CENTER COORDINATOR Height 170.2 cm (5' 7 ) 11/28/2024 11:22 AM CALL CENTER COORDINATOR Body Mass Index 28.51 11/28/2024 11:22 AM CALL CENTER COORDINATOR Plan of Treatment Not on file Procedures Procedure Name Priority Date/Time Associated Diagnosis Comments ECG 12-LEAD Routine 11/28/2024 11:32 AM CALL CENTER COORDINATOR Paroxysmal atrial fibrillation (HCC) POCT LIPID PANEL Routine 11/28/2024 11:3 2 AM CALL CENTER COORDINATOR Lipid screening HEMOGLOBIN AND HEMATOCRIT Routine 11/28/2024 Chronic anticoagulation THYROID FUNCTION CASCADE Routine 11/28/2024 prison current use of amiodarone from Last 3 Months Results * POCT lipid panel (11/28/2024 11:32 AM CALL CENTER COORDINATOR) Cholesterol, POC 159 mg/dL HDL, POC 61 mg/dL Triglycerides, POC 83 mg/dL LDL Cholesterol POC 81 mg/dL Chol/HDL Ratio, POC 1.3 Non-HDL Cholesterol, POC 97 mg/dL Cholesterol Total, POC 159 mg/dL Capillary blood 11/28/2024 1 1:32 AM CALL CENTER COORDINATOR Lou Kent NP POINT OF CARE TEST ORDERA BLES Final Result * ECG 12 lead (11/28/2024 11:32 AM CALL CENTER COORDINATOR) 11/28/2024 11:3 2 AM CALL CENTER COORDINATOR Lou Kent HAND BRAILLE TRANSCRIBER ECG ORDERABLES Edited Re sult - Final * Thyroid Function [place] (11/28/2024) Blood 11/28/2024 Lou Kent HAND BRAILLE TRANSCRIBER LAB BLOOD ORDERABLES Marisela l Result Performing Organization Address City/[facility]/ZIP Co de Phone Number EXTERNAL LAB * (ABNORMAL) Hemoglobin and hematocrit (11/28/2024) SCRIBED Hemoglobin 12.2(A) 14.0 - 18.0 g/dL EXTERNAL LAB SCRIBED Hematocrit 36.4(A) 42.0 - 52.0 % EXTERNAL LAB Blood 11/28/2024 Lou Kent NP LAB BLOOD ORDERABLES Marisela l Result EXTERNAL LAB from Last 3 Months Insurance MEDICARE [facility] MEDICARE [facility] Care Teams Plumber Apprentice Relationship Specialty Start Date End Date Wilver Maldonado DO PCP - General Internal Medicine 07/12/23
--- OUTSIDE RECORDS SUMMARY | 2025-02-13 12:29 | XMS_ITS ---
Author Name Adam Freire Address [address] [place] [address] Phone [phone] [employer] Address [address] [place] [address] Phone [phone] Care Team Providers Care Drug Safety Physician Name Role Phone Adam Freire Unavailable Functional [...]
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
[2025-02-13] MEDS: PHYTONADIONE INJ 10 MG/ML AMP SUB-Q (13:48)
[2025-02-13] MEDS: ALBUMIN HUMAN 25% 25 GM/100 ML 200 ML IVPB (13:48)
[2025-02-13] MEDS: FUROSEMIDE INJ 40 MG/4 ML VIAL IV PUSH (13:48)
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
--- NOTE | 2025-02-13 14:10 | PCRCNOTE ---
Order placed for patient to wear bipap/cpap PRN. RT spoke to patient and patient does not wear a cpap or bipap and does not want to wear one.
--- NOTE | 2025-02-13 15:30 | ADMGEN ---
This patient, Murphy Contreras, was admitted to IMU Room 204-01 at 1522. Patient/family oriented to hospital policies and general routines including ID bracelet, bed and alarms, visiting hours, pain management, procedures, bathroom and other care routines, personal items, smoking policy, room service/diet, and visiting hours. Information on how to activate the Rapid Response Team has been discussed. Patient/Family are encouraged to report perceived risks to care and to ask questions if they do not understand what they are told or what they should do.
[2025-02-13 20:33] LABS: Anion Gap 5 mmol/L (4-12); Blood Urea Nitrogen 22 mg/dL (9-20); Carbon Dioxide 27 mmol/L (22-30); Chloride 99 mmol/L (98-107); Estimated CRCL calculation 33 ml/min; Estimated Glomerular Filt Rate 35; Glucose 119 mg/dL (65-110); Magnesium 1.6 mg/dL (1.6-2.3); Potassium 4.1 mmol/L (3.4-5.0); Prothrombin Time 55.3 Seconds (11.1-14.7); Sodium 131 mmol/L (137-145)
[2025-02-13 20:34] LABS: Partial Thromboplastin Time 69.9 Seconds (22.3-36.8)
[2025-02-13 20:35] LABS: INR 6.1
[2025-02-13 20:44] LABS: Troponin I < 0.012 ng/mL (0.000-0.034)
[2025-02-13] MEDS: FUROSEMIDE INJ 40 MG/4 ML VIAL 20 MG IV PUSH (21:40)
[2025-02-14] VITALS (22 sets, daily range): BP systolic 83–116; BP diastolic 46–77; PULSE 70–98; RESP 12–20; TEMP 36.5–37; O2SAT 97–100
[2025-02-14 04:43] LABS: Basophils Absolute Auto 0.1 K/mm3 (0.0-0.1); Eosinophils Absolute Auto 0.3 K/mm3 (0-0.3); Eosinophils Percent Auto 6.2 % (0-4.4); Hematocrit 24.4 % (42.0-52.0); Immature Granulocyte Absolute 0.02 K/mm3 (0.00-0.031); Immature Granulocyte Percent A 0.4 % (0-0.5); Lymphocytes Absolute Auto 0.93 K/mm3 (0.9-3.2); Lymphocytes Percent Auto 18.7 % (18.3-44.2); Mean Corpuscular HGB Conc 32.8 g/dl (32-36); Mean Corpuscular Hemoglobin 33.9 pg (26-34); Mean Corpuscular Volume 103.4 fl (80-100); Monocytes Absolute Auto 0.4 K/mm3 (0.1-0.6); Monocytes Percent Auto 7.8 % (2.6-8.5); Neutrophils Absolute Auto 3.3 K/mm3 (1.3-6.7); Neutrophils Percent Auto 65.9 % (45.5-73.1); Platelet Count Result 151 k/mm3 (150-375); Red Blood Count 2.36 M/mm3 (4.6-6.20); Red Cell Distribution Width 14.3 % (11.5-14.5)
[2025-02-14 04:56] LABS: Alanine Aminotransferase 18 U/L (6-50); Albumin Level 2.4 g/dL (3.5-5.1); Alkaline Phosphatase 233 U/L (38-126); Anion Gap 6 mmol/L (4-12); Aspartate Amino Transferase 40 U/L (17-59); Bilirubin,Total 1.2 mg/dL (0.2-1.3); Blood Urea Nitrogen 23 mg/dL (9-20); Calcium 7.8 mg/dL (8.4-10.2); Carbon Dioxide 26 mmol/L (22-30); Chloride 100 mmol/L (98-107); Creatine Kinase < 20 U/L (55-170); Estimated CRCL calculation 35 ml/min; Estimated Glomerular Filt Rate 38; Glucose 119 mg/dL (65-110); Magnesium 1.6 mg/dL (1.6-2.3); Sodium 132 mmol/L (137-145)
[2025-02-14 04:58] LABS: INR 4.4; Prothrombin Time 42.9 Seconds (11.1-14.7)
[2025-02-14 04:59] LABS: Partial Thromboplastin Time 68.8 Seconds (22.3-36.8)
[2025-02-14 05:53] LABS: Free T4 Free Thyroxine Reflex 2.88 ng/dL (0.78-2.19)
[2025-02-14] MEDS: LEVOTHYROXINE SODIUM 50 MCG TABLET PO (06:53)
[2025-02-14] MEDS: FUROSEMIDE INJ 40 MG/4 ML VIAL 20 MG IV PUSH ×2 (09:46→21:11)
[2025-02-14] MEDS: PANTOPRAZOLE 40 MG TABLET PO (09:47)
[2025-02-14] MEDS: CHOLECALCIFEROL 5,000 UNITS TABLET 5000 UNITS PO (09:47)
[2025-02-14] MEDS: METOPROLOL SUCCINATE EXT REL 50 MG TABCR PO (09:47)
[2025-02-14] MEDS: FOLIC ACID 1 MG TABLET PO (09:48)
[2025-02-14] MEDS: MAGNESIUM OXIDE 400 MG TABLET PO ×2 (09:48→17:06)
[2025-02-14] MEDS: TAMSULOSIN HCL 0.4 MG CAPSULE PO (09:48)
[2025-02-14] MEDS: MULTIVITAMINS THERAPEUTIC TAB (*BKC) 1 TABLET PO (09:48)
--- NOTE | 2025-02-14 13:46 | ECHO_ITS ---
Patient Info Name: Murphy Contreras Age: 79 years : 1945 Gender: Male Ht: 67 in Wt: 238 lbs BSA: 2.31 m2 HR: 85 bpm BP: 104 / 59 mmHg Heart Rhythm: Atrial Flutter Technical Quality: Fair Exam Date: 02/14/2025 7:29 AM Exam Location: Echo Lab Patient Status: Inpatient Admit Date: 02/13/2025 Staff Ordering Physician: Mi Lewis PA-C Alliance Manager: Anne De Guzman RDCS Attending Provider: Michi Perry MD Referring Physician: Joshua ARAIZA; Exam Type: CA echo doppler color flow Study Info Indications - Afib - Anasarka Complete two-dimensional, color flow and Doppler transthoracic echocardiogram is performed. Summary 1. Complete two-dimensional, color flow and Doppler transthoracic echocardiogram is performed. 2. Left ventricular chamber dimension is normal. 3. Left ventricular systolic function is normal, estimated at 65-70%. 4. There is mildly increased left ventricular wall thickness. 5. The left ventricular diastolic function is indeterminate. 6. Left atrial chamber dimension is severely enlarged. 7. Right atrial chamber dimension is moderately enlarged. 8. There is mild to moderate aortic valve regurgitation. 9. There is mild mitral valve regurgitation. 10. There is mild tricuspid valve regurgitation. 11. Moderate pulmonary hypertension, estimated pulmonary arterial systolic pressure is 49 mmHg. 12. The aortic root size at the sinus of Valsalva is mildly dilated. Left Ventricle Left ventricular chamber dimension is normal. Left ventricular systolic function is normal, estimated at 65-70%. There is mildly increased left ventricular wall thickness. The left ventricular diastolic function is indeterminate. Right Ventricle Right ventricular chamber dimension is normal. Right ventricular systolic function is normal. Left Atria Left atrial chamber dimension is severely enlarged. Right Atria Right atrial chamber dimension is moderately enlarged. Atrial Septum Intact interatrial septum visualized by color flow imaging. Aortic Valve The aortic valve is trileaflet. There is mild aortic valve sclerosis. There is no aortic valve stenosis. There is mild to moderate aortic valve regurgitation. Pulmonic Valve The pulmonic valve is normal. There is no pulmonic valve stenosis. There is trace pulmonic regurgitation. Mitral Valve The mitral valve has calcified annulus. There is no mitral valve stenosis. There is mild mitral valve regurgitation. Tricuspid Valve The tricuspid valve leaflets are normal. There is no significant tricuspid valve stenosis. There is mild tricuspid valve regurgitation. Moderate pulmonary hypertension, estimated pulmonary arterial systolic pressure is 49 mmHg. Pericardium/Pleural The pericardium appears normal. There is no pericardial effusion. Inferior Vena Cava Dilated inferior vena cava with >50% collapse upon inspiration consistent with elevated right atrial pressure, 10 mmHg. Aorta The aortic root size at the sinus of Valsalva is mildly dilated. Left Ventricular Outflow Tract Name Value Normal LVOT 2D LVOT Diameter 2.0 cm LVOT Doppler LVOT Peak Gradient 3 mmHg LVOT Mean Gradient 1 mmHg LVOT VTI 15 cm LVOT VTI/AV VTI Ratio 0.9 LVOT Stroke Volume 46 ml LVOT CO 3.1 l/min LVOT CI 1.3 l/min/m2 Pulmonic Valve Name Value Normal RVOT Doppler RVOT Peak Gradient 1 mmHg PV Doppler PV Peak Gradient 2 mmHg PV Regurgitation Doppler MA Peak End Diastolic Velocity 59 cm/s Mitral Valve Name Value Normal MV Doppler MV Decel Kemper 582 cm/s2 MV PHT 46 ms MV Area (PHT) 4.7 cm2 4.0-5.0 MV Diastolic Function MV E Peak Velocity 93 cm/s MV A Peak Velocity 48 cm/s MV E/A 1.9 MV Decel Time 160 ms MV Annular TDI MV E/e' (Septal) 13.8 <=8.0 MV E/e' (Lateral) 6.8 <=8.0 MV E/e' (Average) 10.3 Tricuspid Valve Name Value Normal TV Regurgitation Doppler TR Peak Velocity 312 cm/s TR Peak Gradient 24 mmHg Estimated PAP/RSVP RA Pressure 10 mmHg <=5 PA Systolic Pressure 49 mmHg <36 RV Systolic Pressure 49 mmHg <36 Aortic Valve Name Value Normal AV Doppler AV Peak Velocity 104 cm/s AV Peak Gradient 4 mmHg AV Mean Gradient 2 mmHg AV VTI 17 cm AV Area (Cont Eq VTI) 2.8 cm2 >=3.0 AV Area (Cont Eq Ty) 2.4 cm2 AV Regurgitation 2D LVOT Area 3.1 cm2 AV Regurgitation Doppler AR Decel Time 1,179 ms AR Decel Kemper 376 cm/s2 AR PHT 342 ms Ventricles Name Value Normal LV Dimensions 2D/MM IVS Diastolic Thickness (2D) 1.0 cm 0.6-1.0 LVID Diastole (2D) 5.1 cm 4.2-5.8 LVIW Diastolic Thickness (2D) 1.0 cm 0.6-1.0 LVID Systole (2D) 3.1 cm 2.5-4.0 LVOT Diameter 2.0 cm LV Mass (2D Cubed) 192.38 g 88.00-224.00 LV Mass Index (2D Cubed) 83 g/m2 49-115 Relative Wall Thickness (2D) 0.40 LV Fractional Shortening/Ejection Fraction 2D/MM LV Fractional Shortening (2D) 39 % 25-43 LV EF (2D Teicholz) 69 % 52-72 LV Diastolic Volume (4C MOD) 133 ml LV EF (4C MOD) 62 % LV Diastolic Volume (2C MOD) 135 ml LV EF (2C MOD) 61 % LV Diastolic Volume (BP MOD) 139 ml 62-150 LV Diastolic Volume Index (BP MOD) 60 ml/m2 34-74 LV Systolic Volume (BP MOD) 53 ml 21-61 LV Systolic Volume Index (BP MOD) 23 ml/m2 11-31 LV EF (BP MOD) 62 % 52-72 LV Diastolic Length (4C) 8.0 cm LV Systolic Length (4C) 7.8 cm LV Stroke Volume (4C MOD) 83 ml Atria Name Value Normal RA Dimensions RA Area (4C) 35.6 cm2 <=18.0 Report Signatures
[2025-02-14 16:11] LABS: Creatinine Urine 97.8 mg/dL; Total Protein Urine Random 69 mg/dL; Ur Ttl Prot Creatinine Ratio 0.71 mg/mg (0-0.20)
[2025-02-14 16:40] LABS: Add Urine Microscopic? YES; Appearance Urine Turbid (Clear); Bacteria Urine None Seen /hpf; Bilirubin Urine Negative (Negative); Blood Urine 3+ (Negative); Color Urine Dark Yellow (Yellow); Glucose Urine UA Negative (Negative); Hyaline Casts Urine Present /lpf; Ketones Urine Negative (Negative); Leukocyte Esterase Ur 2+ LEU/UL (Negative); Nitrate Urine Negative (Negative); Non Pathogenic Casts >20; Protein Urine 2+ mg/dL (Negative); RBC Urine >100 /hpf (0-2); Specific Grav Ur 1.011 (1.001-1.035); Squamous Epithelial Cell Urine Many /hpf (Few)
[2025-02-14 16:42] LABS: Sodium Urine Random 40 meq/L
[2025-02-14 17:00] LABS: Eosinophil Urine None Seen % (None Seen); Urine Eos QC 2nd Tech Confirmed
--- NOTE | 2025-02-14 17:36 | ADMGEN ---
This patient, Murphy Contreras, was admitted to IMU Room 204-01. Patient/family oriented to hospital policies and general routines including ID bracelet, bed and alarms, visiting hours, pain management, procedures, bathroom and other care routines, personal items, smoking policy, room service/diet, and visiting hours. Information on how to activate the Rapid Response Team has been discussed. Patient/Family are encouraged to report perceived risks to care and to ask questions if they do not understand what they are told or what they should do.
--- NOTE | 2025-02-14 18:25 | P.PNIM_ITS ---
Progress Note: A&P Assessment and Plan (1) Acute kidney injury: Code(s): N17.9 - Acute kidney failure, unspecified Status: Acute (2) Volume overload: Code(s): E87.70 - Fluid overload, unspecified Status: Acute (3) Ascites: Qualifiers: Ascites type: other type Qualified Code(s): R18.8 - Other ascites Code(s): R18.8 - Other ascites Status: Acute (4) Macrocytic anemia: Code(s): D53.9 - Nutritional anemia, unspecified Status: Acute (5) Coagulopathy: Code(s): D68.9 - Coagulation defect, unspecified Status: Acute (6) Atrial fibrillation: Qualifiers: Atrial fibrillation type: paroxysmal Qualified Code(s): I48.0 - Paroxysmal atrial fibrillation Code(s): I48.91 - Unspecified atrial fibrillation Status: Chronic (7) Hypothyroidism: Code(s): E03.9 - Hypothyroidism, unspecified Status: Acute (8) Obstructive sleep apnea: Code(s): G47.33 - Obstructive sleep apnea (adult) (pediatric) Status: Acute (9) Kidney stones: Code(s): N20.0 - Calculus of kidney Status: Acute Plan The patient presented to the emergency department with complaints of increasing edema and a reported 38 lb weight gain in the last several weeks as detailed in HPI. Labs, imaging, EKG, and all reports were personally reviewed. He has significant edema up to the flanks and he reports that he has not had any issues with edema up until his recent hospitalization after he received a lot of IV fluids. He does not look dehydrated on exam or by history and the etiology of his acute kidney injury is not entirely clear. Blood pressures have been intermittently low and running at the lower end of normal which could be a contributing factor. May be pre renal from poor cardiac output; chest x-ray shows cardiomegaly and an echocardiogram has been ordered. He was given albumin with furosemide in the ED and we will wait to see how he responds. Bladder feels perhaps a bit distended on exam though difficult to tell given his swelling. Bladder scan has been ordered to rule out urinary retention. All medications will be renally dosed and nephrotoxic agents will be held. Renal ultrasound has been ordered. He has a moderate amount of ascites and paracentesis may be prudent thus will hold anticoagulation for couple of days as his INR is quite elevated. Repeat coags are pending to ensure this is correct. Macrocytic anemia is chronic and stable. Recent ureteral stents are in place without evidence of hydronephrosis on CT scan today. CPAP will be provided for the patient to use while hospitalized. His home medications will be reviewed and resumed as a ppropriate. Findings and treatment plan were discussed with the patient. Questions were solicited and answered to satisfaction. The patient's medical management will be taken over by the hospitalist team in a.m. 02/14 -- Patient feeling better. Etiology unclear. BNP 3870. Echo showing EF 65- 70% with indeterminate diastolic fxn and moderate pulm HTN. Urine Prot/Cr ration 0.7grams. CT scan showing anasarca but lover appears normal. INR 6.1 but only on Xarelto - concern for liver disease. Check RUQ US to assess for liver nodularity. UOP is not brisk but on low dose Lasix given soft BP (repeat BP 116/77). TSH is elevated but so is FT4. Chart review showing elevated LH/FSH in the past. 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 Hold levothyroixine. Check ACTH and cortisol. Will discuss with urology about when patient needs followup for stent removal. Subjective Date/time seen: 02/14/25 18:25 Interval history: 79yo male with hx of AFib on rivaroxaban, HTN, CHEO, PE/DVT, chronic macrocytic anemia, kidney stones, GERD, depression, and alcohol abuse presented to the emergency department via private vehicle from his doctor's office for evaluation swelling and weight gain. No problems overnight. No chest pain or shortness of breath. Slept well. Does have a dry cough. No history of CHF or liver disease. [facility] about 4 months ago. He had bilateral renal stents placed about 4 weeks ago. Exam Narrative: AF 98.1 87/46 80 12 98% ra Gen - NARD Chest -decreased breath sounds in the bases CV -irregularly irregular. Telemetry showing atrial fibrillation with controlled rate Abd - Soft, NT/ND, Positive BS. flank edema Ext - bilateral LE 2+ pitting pedal edema Psych - Nml mood and affect Skin - Warm and dry Objective Data Vital Signs Vital Signs: Vital Signs - 24 hr 02/13/25 20:00 02/13/25 20:00 02/13/25 20:00 Temperature 98.4 F Pulse Rate 78 Respiratory Rate 18 Blood Pressure 88/54 L 88/54 L 105/70 Pulse Oximetry 99 Oxygen Delivery 02/13/25 20:00 02/13/25 20:00 02/13/25 20:20 Temperature Pulse Rate 79 78 Respiratory Rate 18 Blood Pressure 88/52 L Pulse Oximetry 99 Oxygen Delivery Room Air 02/13/25 22:00 02/14/25 00:00 02/14/25 00:00 Temperature 98.6 F Pulse Rate 83 79 78 Respiratory Rate 16 Blood Pressure 94/55 L Pulse Oximetry 99 Oxygen Delivery 02/14/25 00:50 02/14/25 02:00 02/14/25 04:00 Temperature 98.4 F Pulse Rate 79 75 72 Respiratory Rate 16 18 Blood Pressure 94/59 L Pulse Oximetry 99 100 Oxygen Delivery Room Air 02/14/25 04:00 02/14/25 05:15 02/14/25 06:00 Temperature Pulse Rate 70 72 79 Respiratory Rate 18 Blood Pressure Pulse Oximetry 100 Oxygen Delivery Room Air 02/14/25 07:50 02/14/25 08:00 02/14/25 08:00 Temperature 98.3 F 97.7 F Pulse Rate 72 81 Respiratory Rate 20 20 Blood Pressure 83/52 L 89/51 L Pulse Oximetry 97 100 Oxygen Delivery Room Air 02/14/25 08:00 02/14/25 08:06 02/14/25 08:18 Temperature Pulse Rate 86 96 Respiratory Rate Blood Pressure 106/55 L Pulse Oximetry Oxygen Delivery 02/14/25 09:47 02/14/25 10:00 02/14/25 10:00 Temperature Pulse Rate 86 Respiratory Rate Blood Pressure 105/71 95/56 L Pulse Oximetry Oxygen Delivery 02/14/25 10:00 02/14/25 10:14 02/14/25 12:00 Temperature 98.1 F Pulse Rate 91 77 Respiratory Rate 16 Blood Pressure 83/50 L Pulse Oximetry 97 97 Oxygen Delivery Room Air 02/14/25 12:00 02/14/25 12:00 02/14/25 14:00 Temperature Pulse Rate 98 86 Respiratory Rate Blood Pressure Pulse Oximetry Oxygen Delivery Room Air 02/14/25 16:00 02/14/25 16:00 Temperature 98.1 F Pulse Rate 98 80 Respiratory Rate 12 Blood Pressure 87/46 L Pulse Oximetry 98 Oxygen Delivery Intake/Output Intake/Output: Intake & Output 02/11/25 02/12/25 02/13/25 02/14/25 23:59 23:59 23:59 23:59 Intake Total 440 970 Output Total 180 500 Balance 260 470 Meds/Results Medications: Active Medications Generic Name Dose Route Start Last Admin Trade Name Freq PRN Reason Stop Dose Admin Acetaminophen 650 mg 02/13/25 14:21 Acetaminophen 325 Mg Tablet PO Q4H PRN Mild Pain (1-3) or Fever Folic Acid 1 mg 02/14/25 09:00 02/14/25 09:48 Folic Acid 1 Mg Tablet PO 1 mg QAM PABLO Administration Furosemide 20 mg 02/13/25 21:00 02/14/25 09:46 Furosemide Inj 40 Mg/4 Ml Vial IV PUSH 20 mg Q12HR PABLO Administration Levothyroxine Sodium 50 mcg 02/14/25 06:30 02/14/25 06:53 Levothyroxine Sodium 50 Mcg Tablet PO 50 mcg DAILY@0630 PABLO Administration Magnesium Oxide 400 mg 02/14/25 09:00 02/14/25 17:06 Magnesium Oxide 400 Mg Tablet PO 400 mg BID PABLO Administration Metoprolol Succinate 50 mg 02/14/25 09:00 02/14/25 09:47 Metoprolol Succinate Ext Rel 50 Mg Tabcr PO 50 mg DAILY PABLO Administration Multivitamins Therapeutic 1 tablet 02/14/25 09:00 02/14/25 09:48 Multivitamins Therapeutic Tab (*Bkc) PO 1 tablet DAILY PABLO Administration Ondansetron HCl 4 mg 02/13/25 14:21 Ondansetron Inj 4 Mg/2 Ml Vial IV PUSH Q4H PRN Nausea Pantoprazole Sodium 40 mg 02/14/25 09:00 02/14/25 09:47 Pantoprazole 40 Mg Tablet PO 40 mg QAM PABLO Administration Perflutren Lipid Microsphere 0 ml 02/13/25 13:46 Perflutren Lipid Microspheres 1.5 Ml Vial Diluted To 10 Ml Total Volume IV PUSH 02/16/25 13:46 ONCE PRN adequate visualization Protocol Tamsulosin HCl 0.4 mg 02/14/25 09:00 02/14/25 09:48 Tamsulosin Hcl 0.4 Mg Capsule PO 0.4 mg QAM PABLO Administration Vitamin D 5,000 units 02/14/25 09:00 02/14/25 09:47 Cholecalciferol 5,000 Units Tablet PO 5,000 units DAILY PABLO Administration Radiology Results: ITS Impressions Chest X-Ray 02/13/25 12:24 IMPRESSION: 1. Small pleural effusions, right worse than left. 2. Airspace opacities in right lower lung zone, consistent with atelectasis versus pneumonia. 3. Cardiomegaly. Abdomen/Pelvis CT 02/13/25 12:32 IMPRESSION: 1. Likely anasarca with small left and small to moderate-sized right pleural effusions, moderate amount of ascites and prominent body wall and less severe mesenteric and retroperitoneal edema. 2. Few tiny nonobstructing renal stones Multiple calyces of both kidneys with no hydronephrosis and bilateral internal ureteral stents in expected positions. 3. Infrarenal IVC filter. Labs Labs: Laboratory Results - last 24 hr 02/13/25 02/13/25 02/13/25 20:15 20:15 20:15 WBC RBC Hgb Hct MCV MCH MCHC RDW Plt Count MPV Immature Gran % (Auto) Neut % (Auto) Lymph % (Auto) [place] % (Auto) Eos % (Auto) Baso % (Auto) Lymph # (Auto) [place] # (Auto) Eos # (Auto) Baso # (Auto) Abs Immat Gran (auto) Absolute Neuts (auto) Absolute Nucleated RBC Nucleated RBC % PT 55.3 H INR 6.1 H* APTT 69.9 H Sodium Cancelled 131 L Potassium Cancelled 4.1 Chloride Cancelled Carbon Dioxide Anion Gap BUN Creatinine Estim Creat Clear Calc Estimated GFR Glucose Calcium Magnesium Total Bilirubin AST ALT Alkaline Phosphatase Total Creatine Kinase Troponin I Total Protein Albumin TSH (Reflex) Free T4 Urine Color Urine Appearance Urine pH Ur Specific [place] Urine Protein Urine Glucose (UA) Urine Ketones Ur Blood (Man) Urine Nitrate Urine Bilirubin Urine Urobilinogen Leukocyte Esterase Rfl Urine RBC Urine WBC Ur Squamous Epith Cells Urine Bacteria Urine Casts Hyaline Casts Urine Eosinophils U Random Total Protein Ur Random Sodium Urine Creatinine Protein/Creat Ratio 2 02/13/25 02/13/25 02/13/25 20:15 20:15 20:15 WBC RBC Hgb Hct MCV MCH MCHC RDW Plt Count MPV Immature Gran % (Auto) Neut % (Auto) Lymph % (Auto) [place] % (Auto) Eos % (Auto) Baso % (Auto) Lymph # (Auto) [place] # (Auto) Eos # (Auto) Baso # (Auto) Abs Immat Gran (auto) Absolute Neuts (auto) Absolute Nucleated RBC Nucleated RBC % PT INR APTT Sodium Potassium Chloride 99 Carbon Dioxide Cancelled 27 Anion Gap Cancelled 5 BUN Cancelled Creatinine Estim Creat Clear Calc Estimated GFR Glucose Calcium Magnesium Total Bilirubin AST ALT Alkaline Phosphatase Total Creatine Kinase Troponin I Total Protein Albumin TSH (Reflex) Free T4 Urine Color Urine Appearance Urine pH Ur Specific [place] Urine Protein Urine Glucose (UA) Urine Ketones Ur Blood (Man) Urine Nitrate Urine Bilirubin Urine Urobilinogen Leukocyte Esterase Rfl Urine RBC Urine WBC Ur Squamous Epith Cells Urine Bacteria Urine Casts Hyaline Casts Urine Eosinophils U Random Total Protein Ur Random Sodium Urine Creatinine Protein/Creat Ratio 2 02/13/25 02/13/25 02/13/25 20:15 20:15 20:15 WBC RBC Hgb Hct MCV MCH MCHC RDW Plt Count MPV Immature Gran % (Auto) Neut % (Auto) Lymph % (Auto) [place] % (Auto) Eos % (Auto) Baso % (Auto) Lymph # (Auto) [place] # (Auto) Eos # (Auto) Baso # (Auto) Abs Immat Gran (auto) Absolute Neuts (auto) Absolute Nucleated RBC Nucleated RBC % PT INR APTT Sodium Potassium Chloride Carbon Dioxide Anion Gap BUN 22 H Creatinine Cancelled 1.86 H Estim Creat Clear Calc Cancelled 33 Estimated GFR Cancelled Glucose Calcium Magnesium Total Bilirubin AST ALT Alkaline Phosphatase Total Creatine Kinase Troponin I Total Protein Albumin TSH (Reflex) Free T4 Urine Color Urine Appearance Urine pH Ur Specific [place] Urine Protein Urine Glucose (UA) Urine Ketones Ur Blood (Man) Urine Nitrate Urine Bilirubin Urine Urobilinogen Leukocyte Esterase Rfl Urine RBC Urine WBC Ur Squamous Epith Cells Urine Bacteria Urine Casts Hyaline Casts Urine Eosinophils U Random Total Protein Ur Random Sodium Urine Creatinine Protein/Creat Ratio 2 02/13/25 02/13/25 02/13/25 20:15 20:15 20:15 WBC RBC Hgb Hct MCV MCH MCHC RDW Plt Count MPV Immature Gran % (Auto) Neut % (Auto) Lymph % (Auto) [place] % (Auto) Eos % (Auto) Baso % (Auto) Lymph # (Auto) [place] # (Auto) Eos # (Auto) Baso # (Auto) Abs Immat Gran (auto) Absolute Neuts (auto) Absolute Nucleated RBC Nucleated RBC % PT INR APTT Sodium Potassium Chloride Carbon Dioxide Anion Gap BUN Creatinine Estim Creat Clear Calc Estimated GFR 35 L Glucose Cancelled 119 H Calcium Cancelled 8.0 L Magnesium Cancelled Total Bilirubin AST ALT Alkaline Phosphatase Total Creatine Kinase Troponin I Total Protein Albumin TSH (Reflex) Free T4 Urine Color Urine Appearance Urine pH Ur Specific [place] Urine Protein Urine Glucose (UA) Urine Ketones Ur Blood (Man) Urine Nitrate Urine Bilirubin Urine Urobilinogen Leukocyte Esterase Rfl Urine RBC Urine WBC Ur Squamous Epith Cells Urine Bacteria Urine Casts Hyaline Casts Urine Eosinophils U Random Total Protein Ur Random Sodium Urine Creatinine Protein/Creat Ratio 2 02/13/25 02/14/25 02/14/25 20:15 04:35 15:32 WBC 5.0 RBC 2.36 L Hgb 8.0 L Hct 24.4 L MCV 103.4 H MCH 33.9 MCHC 32.8 RDW 14.3 Plt Count 151 MPV 10.0 Immature Gran % (Auto) 0.4 Neut % (Auto) 65.9 Lymph % (Auto) 18.7 [place] % (Auto) 7.8 Eos % (Auto) 6.2 H Baso % (Auto) 1.0 Lymph # (Auto) 0.93 [place] # (Auto) 0.4 Eos # (Auto) 0.3 Baso # (Auto) 0.1 Abs Immat Gran (auto) 0.02 Absolute Neuts (auto) 3.3 Absolute Nucleated RBC 0.000 Nucleated RBC % 0.0 PT 42.9 H D INR 4.4 APTT 68.8 H Sodium 132 L Potassium 4.0 Chloride 100 Carbon Dioxide 26 Anion Gap 6 BUN 23 H Creatinine 1.76 H Estim Creat Clear Calc 35 Estimated GFR 38 L Glucose 119 H Calcium 7.8 L Magnesium 1.6 1.6 Total Bilirubin 1.2 AST 40 ALT 18 Alkaline Phosphatase 233 H Total Creatine Kinase < 20 L Troponin I < 0.012 Total Protein 6.0 L Albumin 2.4 L TSH (Reflex) 12.800 H Free T4 2.88 H Urine Color Dark yellow Urine Appearance Turbid H Urine pH 5.0 Ur Specific [place] 1.011 Urine Protein 2+ H Urine Glucose (UA) Negative Urine Ketones Negative Ur Blood (Man) 3+ H Urine Nitrate Negative Urine Bilirubin Negative Urine Urobilinogen 1.0 Leukocyte Esterase Rfl 2+ H Urine RBC >100 H Urine WBC 11-20 H Ur Squamous Epith Cells Many H Urine Bacteria None seen Urine Casts >20 Hyaline Casts Present Urine Eosinophils None seen U Random Total Protein 69 Ur Random Sodium 40 Urine Creatinine 100.0 Protein/Creat Ratio 2 02/14/25 15:32 WBC RBC Hgb Hct MCV MCH MCHC RDW Plt Count MPV Immature Gran % (Auto) Neut % (Auto) Lymph % (Auto) [place] % (Auto) Eos % (Auto) Baso % (Auto) Lymph # (Auto) [place] # (Auto) Eos # (Auto) Baso # (Auto) Abs Immat Gran (auto) Absolute Neuts (auto) Absolute Nucleated RBC Nucleated RBC % PT INR APTT Sodium Potassium Chloride Carbon Dioxide Anion Gap BUN Creatinine Estim Creat Clear Calc Estimated GFR Glucose Calcium Magnesium Total Bilirubin AST ALT Alkaline Phosphatase Total Creatine Kinase Troponin I Total Protein Albumin TSH (Reflex) Free T4 Urine Color Urine Appearance Urine pH Ur Specific [place] Urine Protein Urine Glucose (UA) Urine Ketones Ur Blood (Man) Urine Nitrate Urine Bilirubin Urine Urobilinogen Leukocyte Esterase Rfl Urine RBC Urine WBC Ur Squamous Epith Cells Urine Bacteria Urine Casts Hyaline Casts Urine Eosinophils U Random Total Protein Ur Random Sodium Urine Creatinine 97.8 Protein/Creat Ratio 2 0.71 H
--- NOTE | 2025-02-14 22:28 | PCRCNOTE ---
Patient refused CPAP placement again this pm, stating that he has not worn CPAP, since initiating it and not tolerating it, during his sleep study 7 or so years ago. He also adds that he has lost a significant amount of weight since that time and does not snore any longer.
[2025-02-15] VITALS (17 sets, daily range): BP systolic 84–134; BP diastolic 46–83; PULSE 73–101; RESP 16–20; TEMP 36.4–37.1; O2SAT 95–100
[2025-02-15 04:51] LABS: Basophils Absolute Auto 0.1 K/mm3 (0.0-0.1); Eosinophils Absolute Auto 0.3 K/mm3 (0-0.3); Eosinophils Percent Auto 5.7 % (0-4.4); Hematocrit 24.1 % (42.0-52.0); Hemoglobin 8.2 g/dL (14.0-18.0); Immature Granulocyte Absolute 0.01 K/mm3 (0.00-0.031); Immature Granulocyte Percent A 0.2 % (0-0.5); Lymphocytes Absolute Auto 0.95 K/mm3 (0.9-3.2); Lymphocytes Percent Auto 19.3 % (18.3-44.2); Mean Platelet Volume 10.3 fl (7.4-10.4); Monocytes Absolute Auto 0.4 K/mm3 (0.1-0.6); Monocytes Percent Auto 7.1 % (2.6-8.5); Neutrophils Absolute Auto 3.3 K/mm3 (1.3-6.7); Neutrophils Percent Auto 66.7 % (45.5-73.1); Platelet Count Result 141 k/mm3 (150-375); Red Blood Count 2.34 M/mm3 (4.6-6.20); Red Cell Distribution Width 14.3 % (11.5-14.5); White Blood Count 4.9 K/mm3 (4.5-10.0)
[2025-02-15 05:01] LABS: Alanine Aminotransferase 17 U/L (6-50); Albumin Level 2.3 g/dL (3.5-5.1); Alkaline Phosphatase 246 U/L (38-126); Anion Gap 5 mmol/L (4-12); Aspartate Amino Transferase 40 U/L (17-59); Bilirubin,Total 1.4 mg/dL (0.2-1.3); Blood Urea Nitrogen 21 mg/dL (9-20); Calcium 7.7 mg/dL (8.4-10.2); Carbon Dioxide 25 mmol/L (22-30); Chloride 101 mmol/L (98-107); Estimated CRCL calculation 34 ml/min; Estimated Glomerular Filt Rate 36; Glucose 91 mg/dL (65-110); Magnesium 1.6 mg/dL (1.6-2.3); Phosphorus 3.4 mg/dL (2.5-4.5); Potassium 3.7 mmol/L (3.4-5.0); Sodium 131 mmol/L (137-145)
[2025-02-15 05:10] LABS: Ammonia 32 umol/L (9-30)
[2025-02-15] MEDS: TAMSULOSIN HCL 0.4 MG CAPSULE PO (08:30)
[2025-02-15] MEDS: FUROSEMIDE INJ 40 MG/4 ML VIAL 20 MG IV PUSH (08:30)
[2025-02-15] MEDS: CHOLECALCIFEROL 5,000 UNITS TABLET 5000 UNITS PO (08:30)
[2025-02-15] MEDS: MAGNESIUM OXIDE 400 MG TABLET PO ×2 (08:30→17:11)
[2025-02-15] MEDS: METOPROLOL SUCCINATE EXT REL 50 MG TABCR PO (08:31)
[2025-02-15] MEDS: MULTIVITAMINS THERAPEUTIC TAB (*BKC) 1 TABLET PO (08:31)
[2025-02-15] MEDS: PANTOPRAZOLE 40 MG TABLET PO (08:31)
[2025-02-15] MEDS: FOLIC ACID 1 MG TABLET PO (08:31)
--- NOTE | 2025-02-15 15:16 | P.PNIM_ITS ---
Progress Note: A&P Assessment and Plan (1) Acute kidney injury: Code(s): N17.9 - Acute kidney failure, unspecified Status: Acute Assessment and Plan: Patient with normal baseline Cr 1.1-1.2 range. He was just hospitalized here in early January for LISA Cr up to 3.6 felt related to obstructive uropathy. He had bilateral ureteric stones with bilateral hydronephrotic changes. He had bilateral ureteral stents placed and renal function did return to normal (1.13 at discharge). Although not completely accurate, he was fluid positive 18L. He was discharged on 01/27 on HCTZ but his losartan was stopped. Cr 1.41 on 02/03 and was 1.7 on admission here. UA showing 2+ protein, 3+ blood (>100 RBC) but could be related to stents. Urine Eos negative. Urine prot/Cr ratio 0.7gm. Gerald 40 with FENa 0.5% on diuretics. CT Abd/Pelvis showing; -- Likely anasarca with small left and small to moderate-sized right pleural effusions, moderate amount of ascites and prominent body wall and less severe mesenteric and retroperitoneal edema -- Few tiny nonobstructing renal stones and multiple calyces of both kidneys with no hydronephrosis and bilateral internal ureteral stents in expected positions. -- Infrarenal IVC filter. Patient was noted to be fluid overloaded so he was started on lasix IV. Cr remaining stable 1.7-1.8 range for now. Continue diuresis as tolerated. (2) Volume overload: Code(s): E87.70 - Fluid overload, unspecified Status: Acute Assessment and Plan: Patient with anasarca present on admission. Concern for either CHF, renal failure or hepatic failure. Nephrotic syndrome seems less likely and good UOP with Lasix. Echo showing EF 65-70%, indeterminate diastolic fxn, mild-mod AI and moderate pulmonary HTN. RUQ US showing fatty infiltration of the liver with a possible nodular contour and ascites. Coagulopathy noted despite just being on Xarelto. Ammonia 32. Bili 1.4. Albumin 2.3. Child class C with MELD score of 34. Fluid overload probably multifactorial but mostly related to liver disease. Will proceed with paracentesis. Change to Bumex. (3) Cirrhosis: Code(s): K74.60 - Unspecified cirrhosis of liver Status: Acute Assessment and Plan: As above. He does have a hx of heavy alcohol use in the past. 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 Check hepatitis panel (4) Ascites: Qualifiers: Ascites type: other type Qualified Code(s): R18.8 - Other ascites Code(s): R18.8 - Other ascites Status: Acute Assessment and Plan: As above. Suspect related to cirrhosis. (5) Coagulopathy: Code(s): D68.9 - Coagulation defect, unspecified Status: Acute Assessment and Plan: INR 6.1 on admission. He does take Xarelto. Vit K given and Xarelto held. INR better at 4.4. Follow (6) Macrocytic anemia: Code(s): D53.9 - Nutritional anemia, unspecified Status: Acute Assessment and Plan: Patient with chronic anemia with Hgb 11 range. Hgb mostly 8 range last admission and has not improved Hgb 9.6 on admission here and down to 8.2. B12/folate normal earlier this month. Labs in Nov: Iron normal with low TIBC 141 and iron sat of 67%. Ferritin 137 Monitor HH. Check stool guaiac. (7) Atrial fibrillation: Qualifiers: Atrial fibrillation type: paroxysmal Qualified Code(s): I48.0 - Paroxysmal atrial fibrillation Code(s): I48.91 - Unspecified atrial fibrillation Status: Chronic Assessment and Plan: Patient with chronic AFib. Echo as above. Rate controlled. Xarelto on hold. (8) Hypothyroidism: Code(s): E03.9 - Hypothyroidism, unspecified Status: Acute Assessment and Plan: TSH elevated at 12.8 but FT4 also elevated at 2.88 to suggest TSH driven hyperthyroidism but he is on levothyroxine 50mcg daily. Chart review has shown this in the past as well. FSH and LH also elevated last year. Consider related to a pituitary alpha subunit. Cortisol level okay. ACTH pending. Stop levothyroxine and see if FT4 normalizes. (9) Obstructive sleep apnea: Code(s): G47.33 - Obstructive sleep apnea (adult) (pediatric) Status: Acute Assessment and Plan: Stable. Continue BiPAP. (10) Kidney stones: Code(s): N20.0 - Calculus of kidney Status: Acute Assessment and Plan: Patient with bilateral ureteric stones with bilateral hydronephrotic changes by CT scan on January 19. Urology consulted and patient underwent cystoscopy, bilateral retrogrades, bilateral ureteroscopy with stone extraction, bilateral ureteral stent placement on 01/20/25. Imaging this admission showing resolution of the hydronephrosis. Arrange follow up for patient with urology to have stents removed. Plan DVT prophylaxis - elevated INR Code status - full Disp - PT/OT ordered. Subjective Date/time seen: 02/15/25 15:16 Interval history: 79yo male with hx of AFib on rivaroxaban, HTN, CHEO, PE/DVT, chronic macrocytic anemia, kidney stones, GERD, depression, and alcohol abuse presented to the emergency department via private vehicle from his doctor's office for evaluation swelling and weight gain. Eating okay. Voiding well. +BM. No CP or SOB. No n/v. Exam Narrative: AF 98.3 105/64 84 20 97% ra Gen - NARD Chest -decreased breath sounds in the bases o/w clear CV -irregularly irregular. Telemetry showing atrial fibrillation with controlled rate Abd - Soft, NT/ND, Positive BS. prominent flank edema Ext - bilateral LE 2+ pitting pedal edema Psych - Nml mood and affect Skin - Warm and dry Objective Data Vital Signs Vital Signs: Vital Signs - 24 hr 02/14/25 16:00 02/14/25 16:00 02/14/25 16:00 Temperature 98.1 F Pulse Rate 98 80 Respiratory Rate 12 Blood Pressure 87/46 L Pulse Oximetry 98 Oxygen Delivery Room Air 02/14/25 18:00 02/14/25 18:33 02/14/25 19:41 Temperature 98.4 F Pulse Rate 86 84 Respiratory Rate 20 Blood Pressure 116/77 102/61 Pulse Oximetry 99 Oxygen Delivery 02/14/25 20:00 02/14/25 20:30 02/14/25 22:00 Temperature Pulse Rate 85 84 85 Respiratory Rate 20 Blood Pressure Pulse Oximetry 99 Oxygen Delivery Room Air 02/15/25 00:00 02/15/25 00:00 02/15/25 00:15 Temperature 98.0 F Pulse Rate 73 78 73 Respiratory Rate 18 18 Blood Pressure 89/52 L Pulse Oximetry 100 100 Oxygen Delivery Room Air 02/15/25 02:00 02/15/25 04:00 02/15/25 04:00 Temperature 97.8 F Pulse Rate 75 77 73 Respiratory Rate 18 Blood Pressure 84/46 L Pulse Oximetry 100 Oxygen Delivery 02/15/25 04:15 02/15/25 06:00 02/15/25 08:00 Temperature Pulse Rate 77 80 Respiratory Rate 18 Blood Pressure Pulse Oximetry 100 97 Oxygen Delivery Room Air Room Air 02/15/25 08:00 02/15/25 08:18 02/15/25 08:31 Temperature 98.4 F Pulse Rate 80 80 Respiratory Rate 16 Blood Pressure 105/64 Pulse Oximetry 97 Oxygen Delivery 02/15/25 12:00 Temperature 98.3 F Pulse Rate 84 Respiratory Rate 20 Blood Pressure 105/64 Pulse Oximetry 97 Oxygen Delivery Intake/Output Intake/Output: Intake & Output 02/12/25 02/13/25 02/14/25 02/15/25 23:59 23:59 23:59 23:59 Intake Total 440 1460 240 Output Total 180 1100 600 Balance 260 360 -360 Meds/Results Medications: Active Medications Generic Name Dose Route Start Last Admin Trade Name Freq PRN Reason Stop Dose Admin Acetaminophen 650 mg 02/13/25 14:21 Acetaminophen 325 Mg Tablet PO Q4H PRN Mild Pain (1-3) or Fever Folic Acid 1 mg 02/14/25 09:00 02/15/25 08:31 Folic Acid 1 Mg Tablet PO 1 mg QAM PABLO Administration Furosemide 20 mg 02/13/25 21:00 02/15/25 08:30 Furosemide Inj 40 Mg/4 Ml Vial IV PUSH 20 mg Q12HR PABLO Administration Magnesium Oxide 400 mg 02/14/25 09:00 02/15/25 08:30 Magnesium Oxide 400 Mg Tablet PO 400 mg BID PABLO Administration Metoprolol Succinate 50 mg 02/14/25 09:00 02/15/25 08:31 Metoprolol Succinate Ext Rel 50 Mg Tabcr PO 50 mg DAILY PABLO Administration Multivitamins Therapeutic 1 tablet 02/14/25 09:00 02/15/25 08:31 Multivitamins Therapeutic Tab (*Bkc) PO 1 tablet DAILY PABLO Administration Ondansetron HCl 4 mg 02/13/25 14:21 Ondansetron Inj 4 Mg/2 Ml Vial IV PUSH Q4H PRN Nausea Pantoprazole Sodium 40 mg 02/14/25 09:00 02/15/25 08:31 Pantoprazole 40 Mg Tablet PO 40 mg QAM PABLO Administration Perflutren Lipid Microsphere 0 ml 02/13/25 13:46 Perflutren Lipid Microspheres 1.5 Ml Vial Diluted To 10 Ml Total Volume IV PUSH 02/16/25 13:46 ONCE PRN adequate visualization Protocol Tamsulosin HCl 0.4 mg 02/14/25 09:00 02/15/25 08:30 Tamsulosin Hcl 0.4 Mg Capsule PO 0.4 mg QAM PABLO Administration Vitamin D 5,000 units 02/14/25 09:00 02/15/25 08:30 Cholecalciferol 5,000 Units Tablet PO 5,000 units DAILY PABLO Administration Radiology Results: ITS Impressions Chest X-Ray 02/13/25 12:24 IMPRESSION: 1. Small pleural effusions, right worse than left. 2. Airspace opacities in right lower lung zone, consistent with atelectasis versus pneumonia. 3. Cardiomegaly. Abdomen/Pelvis CT 02/13/25 12:32 IMPRESSION: 1. Likely anasarca with small left and small to moderate-sized right pleural effusions, moderate amount of ascites and prominent body wall and less severe mesenteric and retroperitoneal edema. 2. Few tiny nonobstructing renal stones Multiple calyces of both kidneys with no hydronephrosis and bilateral internal ureteral stents in expected positions. 3. Infrarenal IVC filter. Upper Quadrant Ultrasound 02/15/25 09:15 IMPRESSION: Fatty infiltration of the liver with a possible nodular contour. The portal vein is patent without Doppler interrogation to exclude phasicity. Intra-abdominal ascites is redemonstrated Labs Labs: Laboratory Results - last 24 hr 02/14/25 02/14/25 02/15/25 15:32 15:32 04:44 WBC 4.9 RBC 2.34 L Hgb 8.2 L Hct 24.1 L MCV 103.0 H MCH 35.0 H MCHC 34.0 RDW 14.3 Plt Count 141 L MPV 10.3 Immature Gran % (Auto) 0.2 Neut % (Auto) 66.7 Lymph % (Auto) 19.3 Morris % (Auto) 7.1 Eos % (Auto) 5.7 H Baso % (Auto) 1.0 Lymph # (Auto) 0.95 Morris # (Auto) 0.4 Eos # (Auto) 0.3 Baso # (Auto) 0.1 Abs Immat Gran (auto) 0.01 Absolute Neuts (auto) 3.3 Absolute Nucleated RBC 0.000 Nucleated RBC % 0.0 Sodium 131 L Potassium 3.7 Chloride 101 Carbon Dioxide 25 Anion Gap 5 BUN 21 H Creatinine 1.81 H Estim Creat Clear Calc 34 Estimated GFR 36 L Glucose 91 Calcium 7.7 L Phosphorus 3.4 Magnesium 1.6 Total Bilirubin 1.4 H AST 40 ALT 17 Alkaline Phosphatase 246 H Ammonia 32 H Total Protein 5.0 L Albumin 2.3 L Random Cortisol 15.30 Urine Color Dark yellow Urine Appearance Turbid H Urine pH 5.0 Ur Specific [place] 1.011 Urine Protein 2+ H Urine Glucose (UA) Negative Urine Ketones Negative Ur Blood (Man) 3+ H Urine Nitrate Negative Urine Bilirubin Negative Urine Urobilinogen 1.0 Leukocyte Esterase Rfl 2+ H Urine RBC >100 H Urine WBC 11-20 H Ur Squamous Epith Cells Many H Urine Bacteria None seen Urine Casts >20 Hyaline Casts Present Urine Eosinophils None seen U Random Total Protein 69 Ur Random Sodium 40 Urine Creatinine 100.0 97.8 Protein/Creat Ratio 2 0.71 H
[2025-02-15] MEDS: BUMETANIDE INJ 1 MG/4 ML VIAL IV PUSH (17:11)
--- NOTE | 2025-02-15 17:52 | PC.NURSE ---
This patient, Murphy Contreras, was transferred to [facility] on 02/15/25 at 1752. Personal belongings sent with patient. Report given to HEIDI Hill. Appropriate documentation sent with patient.
[2025-02-15] MEDS: ALBUMIN HUMAN 25% 25 GM/100 ML 100 ML IVPB (18:03)
[2025-02-15 20:43] LABS: Creatinine Urine 91.9 mg/dL; Urea Random Urine 187 MG/DL
[2025-02-16] VITALS (8 sets, daily range): BP systolic 90–141; BP diastolic 53–67; PULSE 71–106; RESP 16–18; TEMP 33.3–36.8; O2SAT 94–100
[2025-02-16] MEDS: ALBUMIN HUMAN 25% 25 GM/100 ML 100 ML IVPB ×3 (00:01→12:04)
[2025-02-16 05:39] LABS: Basophils Absolute Auto 0.1 K/mm3 (0.0-0.1); Eosinophils Absolute Auto 0.3 K/mm3 (0-0.3); Eosinophils Percent Auto 5.3 % (0-4.4); Hematocrit 23.3 % (42.0-52.0); Hemoglobin 7.7 g/dL (14.0-18.0); Immature Granulocyte Absolute 0.01 K/mm3 (0.00-0.031); Immature Granulocyte Percent A 0.2 % (0-0.5); Lymphocytes Absolute Auto 0.85 K/mm3 (0.9-3.2); Lymphocytes Percent Auto 17.5 % (18.3-44.2); Mean Corpuscular Hemoglobin 34.2 pg (26-34); Mean Corpuscular Volume 103.6 fl (80-100); Mean Platelet Volume 10.5 fl (7.4-10.4); Monocytes Absolute Auto 0.3 K/mm3 (0.1-0.6); Neutrophils Absolute Auto 3.4 K/mm3 (1.3-6.7); Platelet Count Result 144 k/mm3 (150-375); Red Blood Count 2.25 M/mm3 (4.6-6.20); Red Cell Distribution Width 14.4 % (11.5-14.5); White Blood Count 4.9 K/mm3 (4.5-10.0)
[2025-02-16 05:50] LABS: INR 2.4; Prothrombin Time 26.6 Seconds (11.1-14.7)
[2025-02-16 05:53] LABS: Alanine Aminotransferase 17 U/L (6-50); Albumin Level 2.7 g/dL (3.5-5.1); Alkaline Phosphatase 228 U/L (38-126); Anion Gap 6 mmol/L (4-12); Aspartate Amino Transferase 37 U/L (17-59); Blood Urea Nitrogen 23 mg/dL (9-20); Carbon Dioxide 26 mmol/L (22-30); Chloride 101 mmol/L (98-107); Creatine Kinase < 20 U/L (55-170); Estimated CRCL calculation 31 ml/min; Estimated Glomerular Filt Rate 32; Glucose 94 mg/dL (65-110); Phosphorus 3.6 mg/dL (2.5-4.5); Potassium 3.6 mmol/L (3.4-5.0); Sodium 133 mmol/L (137-145)
[2025-02-16 06:00] LABS: Complement C3 70 mg/dL (88-165)
[2025-02-16 07:37] LABS: Hepatitis B Surface Antigen Negative (Negative)
[2025-02-16 07:40] LABS: Bilirubin Indirect 0.8 mg/dL (0-1.1)
[2025-02-16 07:41] LABS: HIV 1/2 Ab P24 Ag Result Negative (Negative)
[2025-02-16 07:42] LABS: HAV RESULT Negative (Negative); Hepatitis B Core IgM Result Negative (Negative)
[2025-02-16 07:54] LABS: Hepatitis C Virus Antibody Negative (Negative)
[2025-02-16] MEDS: METOPROLOL SUCCINATE EXT REL 50 MG TABCR PO (09:42)
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
[2025-02-16] MEDS: MULTIVITAMINS THERAPEUTIC TAB (*BKC) 1 TABLET PO (11:55)
[2025-02-16] MEDS: PANTOPRAZOLE 40 MG TABLET PO (11:56)
[2025-02-16] MEDS: MAGNESIUM OXIDE 400 MG TABLET PO ×2 (11:56→16:57)
[2025-02-16] MEDS: TAMSULOSIN HCL 0.4 MG CAPSULE PO (11:56)
[2025-02-16] MEDS: FOLIC ACID 1 MG TABLET PO (11:56)
[2025-02-16] MEDS: CHOLECALCIFEROL 5,000 UNITS TABLET 5000 UNITS PO (11:56)
--- NOTE | 2025-02-16 12:26 | PM.IMPN ---
Progress Note: A&P Assessment and Plan (1) Acute kidney injury: Code(s): N17.9 - Acute kidney failure, unspecified Status: Acute Assessment and Plan: Patient with normal baseline Cr 1.1-1.2 range. He was just hospitalized here in early January for LISA Cr up to 3.6 felt related to obstructive uropathy. He had bilateral ureteric stones with bilateral hydronephrotic changes. He had bilateral ureteral stents placed and renal function did return to normal (1.13 at discharge). Although not completely accurate, he was fluid positive 18L. He was discharged on 01/27 on HCTZ but his losartan was stopped. Cr 1.41 on 02/03 and was 1.7 on admission here. UA showing 2+ protein, 3+ blood (>100 RBC) but could be related to stents. Urine Eos negative. Urine prot/Cr ratio 0.7gm. Gerald 40 with FENa 0.5% on diuretics. CT Abd/Pelvis showing; -- Likely anasarca with small left and small to moderate-sized right pleural effusions, moderate amount of ascites and prominent body wall and less severe mesenteric and retroperitoneal edema -- Few tiny nonobstructing renal stones and multiple calyces of both kidneys with no hydronephrosis and bilateral internal ureteral stents in expected positions. -- Infrarenal IVC filter. Patient was noted to be fluid overloaded so he was started on diuretics and dose advanced. Cr higher today at 2.0. Probably related to increased dose of diuretic. Continue diuresis as tolerated but will lower the dose. Nephrology consult. . (2) Volume overload: Code(s): E87.70 - Fluid overload, unspecified Status: Acute Assessment and Plan: Patient with anasarca present on admission. Concern for either CHF, renal failure and/or hepatic failure. Nephrotic syndrome seems less likely and good UOP with diuretics Echo showing EF 65-70%, indeterminate diastolic fxn, mild-mod AI and moderate pulmonary HTN. RUQ US showing fatty infiltration of the liver with a possible nodular contour and ascites. Coagulopathy noted despite just being on Xarelto. Ammonia 32. Bili 1.4. Albumin 2.3. Child class C with MELD score of 34. Fluid overload probably multifactorial Paracentesis performed today with removal of 2650mL of yellow fluid showing 109 WBC with no PMNs. Other studies pending. Continue diuresis as he tolerates. (3) Cirrhosis: Code(s): K74.60 - Unspecified cirrhosis of liver Status: Acute Assessment and Plan: As above. He does have a hx of heavy alcohol use in the past. HIV and Hepatitis panel negative. 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 GI consult (4) Ascites: Qualifiers: Ascites type: other type Qualified Code(s): R18.8 - Other ascites Code(s): R18.8 - Other ascites Status: Acute Assessment and Plan: As above. Suspect related to cirrhosis. (5) Coagulopathy: Code(s): D68.9 - Coagulation defect, unspecified Status: Acute Assessment and Plan: INR 6.1 on admission. He does take Xarelto. Vit K given and Xarelto held. INR better at 2.4 Follow (6) Macrocytic anemia: Code(s): D53.9 - Nutritional anemia, unspecified Status: Acute Assessment and Plan: Patient with chronic anemia with Hgb 11 range. Hgb mostly 8 range last admission Hgb 9.6 on admission here and down to 7.7 B12/folate normal earlier this month. Labs in Nov: Iron normal with low TIBC 141 and iron sat of 67%. Ferritin 137 Monitor HH. Stool guaiac ordered. (7) Atrial fibrillation: Qualifiers: Atrial fibrillation type: paroxysmal Qualified Code(s): I48.0 - Paroxysmal atrial fibrillation Code(s): I48.91 - Unspecified atrial fibrillation Status: Chronic Assessment and Plan: Patient with chronic AFib. Echo as above. Rate controlled. Xarelto on hold. (8) Hypothyroidism: Code(s): E03.9 - Hypothyroidism, unspecified Status: Acute Assessment and Plan: TSH elevated at 12.8 but FT4 also elevated at 2.88 to suggest TSH driven hyperthyroidism but he is on levothyroxine 50mcg daily. Chart review has shown this in the past as well. FSH and LH also elevated last year but related to low T. Consider also related to a pituitary alpha subunit. Cortisol level okay. ACTH pending. Stop levothyroxine and see if FT4 normalizes. (9) Obstructive sleep apnea: Code(s): G47.33 - Obstructive sleep apnea (adult) (pediatric) Status: Acute Assessment and Plan: Stable. Continue BiPAP. (10) Kidney stones: Code(s): N20.0 - Calculus of kidney Status: Acute Assessment and Plan: Patient with bilateral ureteric stones with bilateral hydronephrotic changes by CT scan on January 19. Urology consulted and patient underwent cystoscopy, bilateral retrogrades, bilateral ureteroscopy with stone extraction, bilateral ureteral stent placement on 01/20/25. Imaging this admission showing resolution of the hydronephrosis. Arrange follow up for patient with urology to have stents removed. Plan DVT prophylaxis - elevated INR better; add Lovenox Code status - full Disp - PT/OT ordered. Subjective Date/time seen: 02/16/25 12:26 Interval history: 79yo male with hx of AFib on rivaroxaban, HTN, CHEO, PE/DVT, chronic macrocytic anemia, kidney stones, GERD, depression, and alcohol abuse presented to the emergency department via private vehicle from his doctor's office for evaluation swelling and weight gain. Slept off and on. No CP or SOB. +ABDULLAHI. Was walking in the room with PT. Exam Narrative: AF 98.1 104/57 106 18 96% ra Gen - NARD Chest -decreased breath sounds in the bases o/w clear CV -irregularly irregular. Abd - Soft, prominent flank edema Ext - bilateral LE 2+ pitting pedal edema Psych - Nml mood and affect Skin - Warm and dry Objective Data Vital Signs Vital Signs: Vital Signs - 24 hr 02/15/25 14:00 02/15/25 16:00 02/15/25 16:41 Temperature 98.5 F Pulse Rate 84 101 H Respiratory Rate 18 Blood Pressure 107/70 92/62 L Pulse Oximetry 98 Oxygen Delivery 02/15/25 16:41 02/15/25 19:58 02/15/25 20:11 Temperature 98.0 F Pulse Rate 93 Respiratory Rate 16 Blood Pressure 97/58 L 123/73 Pulse Oximetry 99 Oxygen Delivery Room Air 02/15/25 20:13 02/15/25 20:14 02/16/25 04:17 Temperature 97.6 F 98.1 F Pulse Rate 89 97 89 Respiratory Rate 16 Blood Pressure 118/83 134/73 141/67 H Pulse Oximetry 99 95 96 Oxygen Delivery 02/16/25 07:15 02/16/25 08:00 02/16/25 09:42 Temperature 91.9 F L 98.1 F Pulse Rate 71 86 89 Respiratory Rate 18 18 Blood Pressure 101/66 94/61 L Pulse Oximetry 95 98 Oxygen Delivery 02/16/25 09:44 02/16/25 10:32 Temperature 98.1 F Pulse Rate 106 H Respiratory Rate 18 Blood Pressure 104/57 L Pulse Oximetry 96 Oxygen Delivery Room Air Intake/Output Intake/Output: Intake & Output 02/13/25 02/14/25 02/15/25 02/16/25 23:59 23:59 23:59 23:59 Intake Total 440 1460 820 870 Output Total 180 7600 300 0443 Balance 260 467 -85 -7867 Meds/Results Medications: Active Medications Generic Name Dose Route Start Last Admin Trade Name Freq PRN Reason Stop Dose Admin Acetaminophen 650 mg 02/13/25 14:21 Acetaminophen 325 Mg Tablet PO Q4H PRN Mild Pain (1-3) or Fever Bumetanide 1 mg 02/15/25 17:00 02/15/25 17:11 Bumetanide Inj 1 Mg/4 Ml Vial IV PUSH 1 mg BID PABLO Administration Folic Acid 1 mg 02/14/25 09:00 02/16/25 11:56 Folic Acid 1 Mg Tablet PO 1 mg QAM PABLO Administration Albumin Human 100 mls @ 60 mls/hr 02/15/25 18:00 02/16/25 12:04 Albutein IVPB 02/16/25 13:39 60 mls/hr Q6HR PABLO Administration Magnesium Oxide 400 mg 02/14/25 09:00 02/16/25 11:56 Magnesium Oxide 400 Mg Tablet PO 400 mg BID PABLO Administration Metoprolol Succinate 50 mg 02/14/25 09:00 02/16/25 09:42 Metoprolol Succinate Ext Rel 50 Mg Tabcr PO 50 mg DAILY PABLO Administration Multivitamins Therapeutic 1 tablet 02/14/25 09:00 02/16/25 11:55 Multivitamins Therapeutic Tab (*Bkc) PO 1 tablet DAILY PABLO Administration Ondansetron HCl 4 mg 02/13/25 14:21 Ondansetron Inj 4 Mg/2 Ml Vial IV PUSH Q4H PRN Nausea Pantoprazole Sodium 40 mg 02/14/25 09:00 02/16/25 11:56 Pantoprazole 40 Mg Tablet PO 40 mg QAM PABLO Administration Perflutren Lipid Microsphere 0 ml 02/13/25 13:46 Perflutren Lipid Microspheres 1.5 Ml Vial Diluted To 10 Ml Total Volume IV PUSH 02/16/25 13:46 ONCE PRN adequate visualization Protocol Tamsulosin HCl 0.4 mg 02/14/25 09:00 02/16/25 11:56 Tamsulosin Hcl 0.4 Mg Capsule PO 0.4 mg QAM PABLO Administration Vitamin D 5,000 units 02/14/25 09:00 02/16/25 11:56 Cholecalciferol 5,000 Units Tablet PO 5,000 units DAILY PABLO Administration Radiology Results: ITS Impressions Chest X-Ray 02/13/25 12:24 IMPRESSION: 1. Small pleural effusions, right worse than left. 2. Airspace opacities in right lower lung zone, consistent with atelectasis versus pneumonia. 3. Cardiomegaly. Abdomen/Pelvis CT 02/13/25 12:32 IMPRESSION: 1. Likely anasarca with small left and small to moderate-sized right pleural effusions, moderate amount of ascites and prominent body wall and less severe mesenteric and retroperitoneal edema. 2. Few tiny nonobstructing renal stones Multiple calyces of both kidneys with no hydronephrosis and bilateral internal ureteral stents in expected positions. 3. Infrarenal IVC filter. Upper Quadrant Ultrasound 02/15/25 09:15 IMPRESSION: Fatty infiltration of the liver with a possible nodular contour. The portal vein is patent without Doppler interrogation to exclude phasicity. Intra-abdominal ascites is redemonstrated Paracentesis Ultrasound 02/16/25 11:33 IMPRESSION: 1. Successful ultrasound-guided paracentesis yielding 2650 mL of yellow fluid. Labs Labs: Laboratory Results - last 24 hr 02/15/25 02/16/25 02/16/25 20:26 05:06 05:11 WBC RBC Hgb Hct MCV MCH MCHC RDW Plt Count MPV Immature Gran % (Auto) Neut % (Auto) Lymph % (Auto) [place] % (Auto) Eos % (Auto) Baso % (Auto) Lymph # (Auto) [place] # (Auto) Eos # (Auto) Baso # (Auto) Abs Immat Gran (auto) Absolute Neuts (auto) Absolute Nucleated RBC Nucleated RBC % PT 26.6 H D INR 2.4 Sodium 133 L Potassium 3.6 Chloride 101 Carbon Dioxide 26 Anion Gap 6 BUN 23 H Creatinine 2.01 H Estim Creat Clear Calc 31 Estimated GFR 32 L Glucose 94 Calcium 8.0 L Phosphorus 3.6 Total Bilirubin 2.0 H Indirect Bilirubin 0.8 AST 37 ALT 17 Alkaline Phosphatase 228 H Total Creatine Kinase < 20 L Total Protein 6.0 L Albumin 2.7 L Ur Random Urea 187 Urine Creatinine 91.9 Complement C3 Complement C4 Hepatitis A IgM Ab Hep Bs Antigen Hep B Core IgM Ab Hepatitis C Ab Screen HIV 1&2 Ab/P24 Ag 4thGn 02/16/25 02/16/25 05:12 05:13 WBC 4.9 RBC 2.25 L Hgb 7.7 L Hct 23.3 L MCV 103.6 H MCH 34.2 H MCHC 33.0 RDW 14.4 Plt Count 144 L MPV 10.5 H Immature Gran % (Auto) 0.2 Neut % (Auto) 69.0 Lymph % (Auto) 17.5 L [place] % (Auto) 7.0 Eos % (Auto) 5.3 H Baso % (Auto) 1.0 Lymph # (Auto) 0.85 L [place] # (Auto) 0.3 Eos # (Auto) 0.3 Baso # (Auto) 0.1 Abs Immat Gran (auto) 0.01 Absolute Neuts (auto) 3.4 Absolute Nucleated RBC 0.000 Nucleated RBC % 0.0 PT INR Sodium Potassium Chloride Carbon Dioxide Anion Gap BUN Creatinine Estim Creat Clear Calc Estimated GFR Glucose Calcium Phosphorus Total Bilirubin Indirect Bilirubin AST ALT Alkaline Phosphatase Total Creatine Kinase Total Protein Albumin Ur Random Urea Urine Creatinine Complement C3 70 L Complement C4 15.9 Hepatitis A IgM Ab Negative Hep Bs Antigen Negative Hep B Core IgM Ab Negative Hepatitis C Ab Screen Negative HIV 1&2 Ab/P24 Ag 4thGn Negative
[2025-02-16 13:10] LABS: Source Peritoneal Fluid Peritoneal Fluid
[2025-02-16 13:11] LABS: Appearance Peritoneal Fluid Hazy (Clear); Color Peritoneal Fluid Yellow (Colorless); Lymphocytes Peritoneal Fluid 8 %; Macrophages Peritoneal Fluid 65 %; Mesothelial Cells Peritoneal Fluid 9 %; Monocytes Peritoneal Fluid 18 %; Nucleated Cells Peritoneal Flu 109 /uL (0-500); RBC Peritoneal Fluid < 2000 /uL (0-10000)
[2025-02-16] MEDS: ENOXAPARIN 30 MG/0.3 ML SYRINGE SUB-Q (20:54)
[2025-02-16] MEDS: ACETAMINOPHEN 325 MG TABLET 650 MG PO (20:59)
[2025-02-17] VITALS (7 sets, daily range): BP systolic 83–100; BP diastolic 52–62; PULSE 89–104; RESP 14–18; TEMP 36.6–37.1; O2SAT 95–100
[2025-02-17] MEDS: ACETAMINOPHEN 325 MG TABLET 650 MG PO (02:48)
[2025-02-17 03:28] LABS: Creatinine, Random Urine 102 mg/dL (20-320); Total Prot/Creat ratio mg/mg 0.471 (0.025-0.148); Total Protein/Creatinine Ratio 471 mg/g creat (25-148)
[2025-02-17 05:24] LABS: Basophils Absolute Auto 0.1 K/mm3 (0.0-0.1); Eosinophils Absolute Auto 0.2 K/mm3 (0-0.3); Eosinophils Percent Auto 4.8 % (0-4.4); Hematocrit 24.9 % (42.0-52.0); Hemoglobin 8.4 g/dL (14.0-18.0); Immature Granulocyte Absolute 0.01 K/mm3 (0.00-0.031); Immature Granulocyte Percent A 0.2 % (0-0.5); Lymphocytes Absolute Auto 0.95 K/mm3 (0.9-3.2); Lymphocytes Percent Auto 18.9 % (18.3-44.2); Mean Corpuscular HGB Conc 33.7 g/dl (32-36); Mean Corpuscular Volume 103.8 fl (80-100); Mean Platelet Volume 10.6 fl (7.4-10.4); Monocytes Absolute Auto 0.3 K/mm3 (0.1-0.6); Monocytes Percent Auto 6.6 % (2.6-8.5); Neutrophils Absolute Auto 3.4 K/mm3 (1.3-6.7); Neutrophils Percent Auto 68.5 % (45.5-73.1); Platelet Count Result 142 k/mm3 (150-375); Red Cell Distribution Width 14.3 % (11.5-14.5)
[2025-02-17 05:39] LABS: Prothrombin Time 23.1 Seconds (11.1-14.7)
[2025-02-17 05:40] LABS: Partial Thromboplastin Time 45.8 Seconds (22.3-36.8)
[2025-02-17 05:42] LABS: Alanine Aminotransferase 16 U/L (6-50); Albumin Level 2.6 g/dL (3.5-5.1); Alkaline Phosphatase 228 U/L (38-126); Anion Gap 10 mmol/L (4-12); Aspartate Amino Transferase 38 U/L (17-59); Bilirubin,Total 1.7 mg/dL (0.2-1.3); Blood Urea Nitrogen 24 mg/dL (9-20); Calcium 7.9 mg/dL (8.4-10.2); Carbon Dioxide 23 mmol/L (22-30); Chloride 100 mmol/L (98-107); Estimated CRCL calculation 32 ml/min; Estimated Glomerular Filt Rate 33; Glucose 95 mg/dL (65-110); Potassium 3.7 mmol/L (3.4-5.0); Sodium 133 mmol/L (137-145)
[2025-02-17 07:39] LABS: Protein, Total 5.3 g/dL (6.1-8.1)
[2025-02-17] MEDS: TAMSULOSIN HCL 0.4 MG CAPSULE PO (09:00)
[2025-02-17] MEDS: PANTOPRAZOLE 40 MG TABLET PO (09:00)
[2025-02-17] MEDS: FOLIC ACID 1 MG TABLET PO (09:00)
[2025-02-17] MEDS: MAGNESIUM OXIDE 400 MG TABLET PO ×2 (09:00→17:31)
[2025-02-17] MEDS: MULTIVITAMINS THERAPEUTIC TAB (*BKC) 1 TABLET PO (09:00)
[2025-02-17] MEDS: CHOLECALCIFEROL 5,000 UNITS TABLET 5000 UNITS PO (09:00)
[2025-02-17] MEDS: ONDANSETRON INJ 4 MG/2 ML VIAL IV PUSH (10:00)
--- NOTE | 2025-02-17 10:37 | P.PNNP_ITS ---
Progress Note: A&P Assessment and Plan (1) Acute kidney injury: Code(s): N17.9 - Acute kidney failure, unspecified Status: Acute Assessment and Plan: * baseline creatinine has fluctuating for the last few years.... * has been running ~ 1.1 - 1.5mg/l since 2020 * averaging ~ 1.1 - 1.3mg/dl in 2022 - 2023 * creatinine up to 2.0mg/dl in November * hospitalized in early January 2025 for LISA with creatinine of 3.6mg/dl secondary to obstructive uropathy -- bilateral ureteric stones with bilateral hydronephrotic changes present and had bilateral ureteral stents placed with creatinine of 1.13mg/dl at discharge * noted creatinine of 1.41mg/dl on 02/03/25 * creatinine of 1.7mg/dl on admission with this hospitalization - up to 2.0mg/dl (on 02/16) * evaluation to date noted: * 2+ protein and 3+ blood on UA (due to stents?) * urine eosinophils negative * 700mg of proteinuria * urine electrolytes prerenal * CT A/P without obstruction but evidence of volume overload * suspect fluctuating creatinine/renal function is a manifestation of his liver disease/physiology: * decreased effective circulating volume leading to chronic prerenal azotemia worsened by his need for diuretic therapy in an effort to maintain stability his volume status... (2) Volume overload: Qualifiers: Hypervolemia type: unspecified Qualified Code(s): E87.70 - Fluid overload, unspecified Code(s): E87.70 - Fluid overload, unspecified Status: Acute Assessment and Plan: Patient with anasarca present on admission. Concern for either CHF, renal failure and/or hepatic failure. Nephrotic syndrome seems less likely and good UOP with diuretics Echo showing EF 65-70%, indeterminate diastolic fxn, mild-mod AI and moderate pulmonary HTN. RUQ US showing fatty infiltration of the liver with a possible nodular contour and ascites. Coagulopathy noted despite just being on Xarelto. Ammonia 32. Bili 1.4. Albumin 2.3. Child class C with MELD score of 34. Fluid overload probably multifactorial but mostly related to cirrhosis Paracentesis performed 02/16 with removal of 2650mL of yellow fluid showing 109 WBC with no PMNs. Path showing no malignancy. Other studies pending Continue to monitor. Resume diuretics when okay with others. (3) Cirrhosis: Qualifiers: Hepatic cirrhosis type: unspecified hepatic cirrhosis Ascites presence: with ascites Qualified Code(s): K74.60 - Unspecified cirrhosis of liver; R18.8 - Other ascites Code(s): K74.60 - Unspecified cirrhosis of liver Status: Acute Assessment and Plan: As above. He does have a hx of heavy alcohol use in the past. Was also on Amiodarone for an extended period. HIV and Hepatitis panel negative. 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 [place] related to cirrhosis. (5) Coagulopathy: Code(s): D68.9 - Coagulation defect, unspecified Status: Acute Assessment and Plan: INR 6.1 on admission. He does take Xarelto. Vit K given and Xarelto held. INR better at 2.0 Follow (6) Macrocytic anemia: Code(s): D53.9 - Nutritional anemia, unspecified Status: Acute Assessment and Plan: Patient with chronic anemia with Hgb 11 range. Hgb mostly 8 range last admission Hgb 9.6 on admission here and down to 7-8 range now B12/folate normal earlier this month. Labs in Nov: Iron normal with low TIBC 141 and iron sat of 67%. Ferritin 137 Monitor HH. Stool guaiac ordered. (7) Atrial fibrillation: Qualifiers: Atrial fibrillation type: paroxysmal Qualified Code(s): I48.0 - Paroxysmal atrial fibrillation Code(s): I48.91 - Unspecified atrial fibrillation Status: Chronic Assessment and Plan: Patient with chronic AFib. Echo as above. Rate controlled. Xarelto on hold. Resume when okay with others (8) Hypothyroidism: Code(s): E03.9 - Hypothyroidism, unspecified Status: Acute Assessment and Plan: TSH elevated at 12.8 but FT4 also elevated at 2.88 to suggest TSH driven hyperthyroidism but he is on levothyroxine 50mcg daily. Chart review has shown this in the past as well. FSH and LH also elevated last year but related to low T. Consider also related to a pituitary alpha subunit. Cortisol level okay. ACTH pending. Stop levothyroxine and see if FT4 normalizes. (9) Obstructive sleep apnea: Code(s): G47.33 - Obstructive sleep apnea (adult) (pediatric) Status: Acute Assessment and Plan: Stable. Patient refusing BiPAP. Continue to encourage BiPAP use. (10) Kidney stones: Code(s): N20.0 - Calculus of kidney Status: Acute Assessment and Plan: Patient with bilateral ureteric stones with bilateral hydronephrotic changes by CT scan on January 19. Urology consulted and patient underwent cystoscopy, bilateral retrogrades, bilateral ureteroscopy with stone extraction, bilateral ureteral stent placement on 01/20/25. Imaging this admission showing resolution of the hydronephrosis. Arrange follow up for patient with urology to have stents removed. Plan DVT prophylaxis - elevated INR; Lovenox Code status - full Disp - PT/OT ordered. Subjective Date/time seen: 02/17/25 10:37 Interval history: Follow-up for acute kidney injury/acute renal failure Exam 2 Narrative: General: WD/WN male/female in NAD Heart: IRRR, normal S1 and S2; no rub Lungs: clear anteriorly Abdomen: soft, nontender, nondistended, positive bowel sounds Extremities: no cyanosis or clubbing; 2+ edema Skin: warm and dry Objective Data Vital Signs Vital Signs: Vital Signs Temp Pulse Resp BP Pulse Ox O2 Del Method 02/17/25 09:00 90 18 97/52 L 95 Room Air 02/17/25 04:33 98.8 F 90 18 97/52 L 95 02/16/25 22:00 98.2 F 80 18 90/58 L 96 02/16/25 20:45 Room Air 02/16/25 20:26 98.2 F 102 H 18 94/53 L 100 02/16/25 20:26 98.2 F 97 18 96/56 L 94 02/16/25 20:00 98.2 F 80 18 90/58 L 96 Intake/Output Intake/Output: Intake & Output 02/14/25 02/15/25 02/16/25 02/17/25 23:59 23:59 23:59 23:59 Intake Total 3701 876 1098 650 Output Total 1379 897 7715 300 Balance 350 Meds/Results Medications: Active Medications Generic Name Dose Route Start Last Admin Trade Name Freq PRN Reason Stop Dose Admin Acetaminophen 650 mg 02/13/25 14:21 02/17/25 02:48 Acetaminophen 325 Mg Tablet PO 650 mg Q4H PRN Administration Mild Pain (1-3) or Fever Enoxaparin Sodium 40 mg 02/17/25 21:00 Enoxaparin 40 Mg/0.4 Ml Syringe SUB-Q QHS [facility] Fluticasone Propionate 1 spray 02/17/25 21:00 Fluticasone Propionate 0.05% Na Spr 16 Gm Btl (*Bkc) NASAL Q12HR [facility] Folic Acid 1 mg 02/14/25 09:00 02/17/25 09:00 Folic Acid 1 Mg Tablet PO 1 mg QAM [facility] Administration Furosemide 20 mg 02/17/25 06:30 02/17/25 08:59 Furosemide Inj 40 Mg/4 Ml Vial IV PUSH Not Given Q8HR [facility] Magnesium Oxide 400 mg 02/14/25 09:00 02/17/25 17:31 Magnesium Oxide 400 Mg Tablet PO 400 mg BID PABLO Administration Metoprolol Succinate 50 mg 02/14/25 09:00 02/17/25 09:06 Metoprolol Succinate Ext Rel 50 Mg Tabcr PO Not Given DAILY [facility] Multivitamins Therapeutic 1 tablet 02/14/25 09:00 02/17/25 09:00 Multivitamins Therapeutic Tab (*Bkc) PO 1 tablet DAILY PABLO Administration Ondansetron HCl 4 mg 02/13/25 14:21 02/17/25 10:00 Ondansetron Inj 4 Mg/2 Ml Vial IV PUSH 4 mg Q4H PRN Administration Nausea Pantoprazole Sodium 40 mg 02/14/25 09:00 02/17/25 09:00 Pantoprazole 40 Mg Tablet PO 40 mg QAM PABLO Administration Tamsulosin HCl 0.4 mg 02/14/25 09:00 02/17/25 09:00 Tamsulosin Hcl 0.4 Mg Capsule PO 0.4 mg QAM PABLO Administration Vitamin D 5,000 units 02/14/25 09:00 02/17/25 09:00 Cholecalciferol 5,000 Units Tablet PO 5,000 units DAILY PABLO Administration Radiology Results: ITS Impressions Chest X-Ray 02/13/25 12:24 IMPRESSION: 1. Small pleural effusions, right worse than left. 2. Airspace opacities in right lower lung zone, consistent with atelectasis versus pneumonia. 3. Cardiomegaly. Abdomen/Pelvis CT 02/13/25 12:32 IMPRESSION: 1. Likely anasarca with small left and small to moderate-sized right pleural effusions, moderate amount of ascites and prominent body wall and less severe mesenteric and retroperitoneal edema. 2. Few tiny nonobstructing renal stones Multiple calyces of both kidneys with no hydronephrosis and bilateral internal ureteral stents in expected positions. 3. Infrarenal IVC filter. Upper Quadrant Ultrasound 02/15/25 09:15 IMPRESSION: Fatty infiltration of the liver with a possible nodular contour. The portal vein is patent without Doppler interrogation to exclude phasicity. Intra-abdominal ascites is redemonstrated Paracentesis Ultrasound 02/16/25 11:33 IMPRESSION: 1. Successful ultrasound-guided paracentesis yielding 2650 mL of yellow fluid. Labs Labs: Laboratory Tests 02/17/25 04:33 02/17/25 04:33 Calcium 7.9 L Total Bilirubin 1.7 H AST 38 ALT 16 Alkaline Phosphatase 228 H Total Protein 5.0 L Albumin 2.6 L Microbiology 02/16/25 11:15 Ascites Fluid Anaerobic Culture - Preliminary
--- NOTE | 2025-02-17 10:51 | PCPTNOTE ---
Attempted to see patient for PT, however patient declined due to just working with OT and reported he wanted to rest at this time.
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
--- NOTE | 2025-02-17 14:31 | P.PNIM_ITS ---
Progress Note: A&P Assessment and Plan (1) Acute kidney injury: Code(s): N17.9 - Acute kidney failure, unspecified Status: Acute Assessment and Plan: Patient with normal baseline Cr 1.1-1.5 range in 2023. Cr was 2.0 in November and he was just hospitalized here in early January for LISA Cr up to 3.6 felt related to obstructive uropathy. He had bilateral ureteric stones with bilateral hydronephrotic changes. He had bilateral ureteral stents placed and renal function did return to normal (1.13 at discharge). Although not completely accurate, he was fluid positive 18L. He was discharged on 01/27 on HCTZ but his losartan was stopped. Cr 1.41 on 02/03 and was 1.7 on admission here. UA showing 2+ protein, 3+ blood (>100 RBC) but could be related to stents. Urine Eos negative. Urine prot/Cr ratio 0.7gm. Gerald 40 with FENa 0.5% on diuretics. CT Abd/Pelvis showing; -- Likely anasarca with small left and small to moderate-sized right pleural effusions, moderate amount of ascites and prominent body wall and less severe mesenteric and retroperitoneal edema -- Few tiny nonobstructing renal stones and multiple calyces of both kidneys with no hydronephrosis and bilateral internal ureteral stents in expected posi tions. -- Infrarenal IVC filter. Patient was noted to be fluid overloaded so he was started on diuretics and dose advanced. Cr up to 2.0 so diuretics held. Diuretics resumed but GI felt this should be held for now. Nephrology consulted and appreciate their input. (2) Volume overload: Code(s): E87.70 - Fluid overload, unspecified Status: Acute Assessment and Plan: Patient with anasarca present on admission. Concern for either CHF, renal failure and/or hepatic failure. Nephrotic syndrome seems less likely and good UOP with diuretics Echo showing EF 65-70%, indeterminate diastolic fxn, mild-mod AI and moderate pulmonary HTN. RUQ US showing fatty infiltration of the liver with a possible nodular contour and ascites. Coagulopathy noted despite just being on Xarelto. Ammonia 32. Bili 1.4. Albumin 2.3. Child class C with MELD score of 34. Fluid overload probably multifactorial but mostly related to cirrhosis Paracentesis performed 02/16 with removal of 2650mL of yellow fluid showing 109 WBC with no PMNs. Path showing no malignancy. Other studies pending Continue to monitor. Resume diuretics when okay with others. (3) Cirrhosis: Code(s): K74.60 - Unspecified cirrhosis of liver Status: Acute Assessment and Plan: As above. He does have a hx of heavy alcohol use in the past. Was also on Amiodarone for an extended period. HIV and Hepatitis panel negative. 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 Jack related to cirrhosis. (5) Coagulopathy: Code(s): D68.9 - Coagulation defect, unspecified Status: Acute Assessment and Plan: INR 6.1 on admission. He does take Xarelto. Vit K given and Xarelto held. INR better at 2.0 Follow (6) Macrocytic anemia: Code(s): D53.9 - Nutritional anemia, unspecified Status: Acute Assessment and Plan: Patient with chronic anemia with Hgb 11 range. Hgb mostly 8 range last admission Hgb 9.6 on admission here and down to 7-8 range now B12/folate normal earlier this month. Labs in Nov: Iron normal with low TIBC 141 and iron sat of 67%. Ferritin 137 Monitor HH. Stool guaiac ordered. (7) Atrial fibrillation: Qualifiers: Atrial fibrillation type: paroxysmal Qualified Code(s): I48.0 - Paroxysmal atrial fibrillation Code(s): I48.91 - Unspecified atrial fibrillation Status: Chronic Assessment and Plan: Patient with chronic AFib. Echo as above. Rate controlled. Xarelto on hold. Resume when okay with others (8) Hypothyroidism: Code(s): E03.9 - Hypothyroidism, unspecified Status: Acute Assessment and Plan: TSH elevated at 12.8 but FT4 also elevated at 2.88 to suggest TSH driven hyperthyroidism but he is on levothyroxine 50mcg daily. Chart review has shown this in the past as well. FSH and LH also elevated last year but related to low T. Consider also related to a pituitary alpha subunit. Cortisol level okay. ACTH pending. Stop levothyroxine and see if FT4 normalizes. (9) Obstructive sleep apnea: Code(s): G47.33 - Obstructive sleep apnea (adult) (pediatric) Status: Acute Assessment and Plan: Stable. Patient refusing BiPAP. Continue to encourage BiPAP use. (10) Kidney stones: Code(s): N20.0 - Calculus of kidney Status: Acute Assessment and Plan: Patient with bilateral ureteric stones with bilateral hydronephrotic changes by CT scan on January 19. Urology consulted and patient underwent cystoscopy, bilateral retrogrades, bilateral ureteroscopy with stone extraction, bilateral ureteral stent placement on 01/20/25. Imaging this admission showing resolution of the hydronephrosis. Arrange follow up for patient with urology to have stents removed. Plan DVT prophylaxis - elevated INR; Lovenox Code status - full Disp - PT/OT ordered. Subjective Date/time seen: 02/17/25 14:31 Interval history: 79yo male with hx of AFib on rivaroxaban, HTN, CHEO, PE/DVT, chronic macrocytic anemia, kidney stones, GERD, depression, and alcohol abuse presented to the emergency department via private vehicle from his doctor's office for evaluation swelling and weight gain. Didnt sleep well. No CP or OSB. Cough productive of clear sputum. Tedhose overnight but took them off this morning. Eating okay. Complains of post-nasal drainage that causes nausea. He was on Amiodarone for 10 years but stopped this about 2 months ago. Exam Narrative: AF 98.8 97/52 90 18 95% ra Gen - NARD Chest -clear bilaterally. nml RR CV -irregularly irregular. Abd - Soft, NT, +BS. + flank edema Ext - bilateral LE 2+ pitting pedal edema. poor muscle mass Psych - Nml mood and affect Skin - Warm and dry Objective Data Vital Signs Vital Signs: Vital Signs - 24 hr 02/16/25 20:00 02/16/25 20:26 02/16/25 20:26 Temperature 98.2 F 98.2 F 98.2 F Pulse Rate 80 97 102 H Respiratory Rate 18 18 18 Blood Pressure 90/58 L 96/56 L 94/53 L Pulse Oximetry 96 94 100 Oxygen Delivery 02/16/25 20:45 02/16/25 22:00 02/17/25 04:33 Temperature 98.2 F 98.8 F Pulse Rate 80 90 Respiratory Rate 18 18 Blood Pressure 90/58 L 97/52 L Pulse Oximetry 96 95 Oxygen Delivery Room Air 02/17/25 09:00 02/17/25 09:00 Temperature Pulse Rate 90 Respiratory Rate 18 Blood Pressure 97/52 L Pulse Oximetry 95 Oxygen Delivery Room Air Intake/Output Intake/Output: Intake & Output 02/14/25 02/15/25 02/16/25 02/17/25 23:59 23:59 23:59 23:59 Intake Total 7505 901 5338 410 Output Total 1303 996 2398 100 Balance 310 Meds/Results Medications: Active Medications Generic Name Dose Route Start Last Admin Trade Name Freq PRN Reason Stop Dose Admin Acetaminophen 650 mg 02/13/25 14:21 02/17/25 02:48 Acetaminophen 325 Mg Tablet PO 650 mg Q4H PRN Administration Mild Pain (1-3) or Fever Enoxaparin Sodium 40 mg 02/17/25 21:00 Enoxaparin 40 Mg/0.4 Ml Syringe SUB-Q QHS [facility] Fluticasone Propionate 1 spray 02/17/25 21:00 Fluticasone Propionate 0.05% Na Spr 16 Gm Btl (*Bkc) NASAL Q12HR PABLO Folic Acid 1 mg 02/14/25 09:00 02/17/25 09:00 Folic Acid 1 Mg Tablet PO 1 mg QAM PABLO Administration Furosemide 20 mg 02/17/25 06:30 02/17/25 08:59 Furosemide Inj 40 Mg/4 Ml Vial IV PUSH Not Given Q8HR PABLO Magnesium Oxide 400 mg 02/14/25 09:00 02/17/25 09:00 Magnesium Oxide 400 Mg Tablet PO 400 mg BID PABLO Administration Metoprolol Succinate 50 mg 02/14/25 09:00 02/17/25 09:06 Metoprolol Succinate Ext Rel 50 Mg Tabcr PO Not Given DAILY PABLO Multivitamins Therapeutic 1 tablet 02/14/25 09:00 02/17/25 09:00 Multivitamins Therapeutic Tab (*Bkc) PO 1 tablet DAILY PABLO Administration Ondansetron HCl 4 mg 02/13/25 14:21 02/17/25 10:00 Ondansetron Inj 4 Mg/2 Ml Vial IV PUSH 4 mg Q4H PRN Administration Nausea Pantoprazole Sodium 40 mg 02/14/25 09:00 02/17/25 09:00 Pantoprazole 40 Mg Tablet PO 40 mg QAM PABLO Administration Tamsulosin HCl 0.4 mg 02/14/25 09:00 02/17/25 09:00 Tamsulosin Hcl 0.4 Mg Capsule PO 0.4 mg QAM PABLO Administration Vitamin D 5,000 units 02/14/25 09:00 02/17/25 09:00 Cholecalciferol 5,000 Units Tablet PO 5,000 units DAILY PABLO Administration Radiology Results: ITS Impressions Chest X-Ray 02/13/25 12:24 IMPRESSION: 1. Small pleural effusions, right worse than left. 2. Airspace opacities in right lower lung zone, consistent with atelectasis versus pneumonia. 3. Cardiomegaly. Abdomen/Pelvis CT 02/13/25 12:32 IMPRESSION: 1. Likely anasarca with small left and small to moderate-sized right pleural effusions, moderate amount of ascites and prominent body wall and less severe mesenteric and retroperitoneal edema. 2. Few tiny nonobstructing renal stones Multiple calyces of both kidneys with no hydronephrosis and bilateral internal ureteral stents in expected positions. 3. Infrarenal IVC filter. Upper Quadrant Ultrasound 02/15/25 09:15 IMPRESSION: Fatty infiltration of the liver with a possible nodular contour. The portal vein is patent without Doppler interrogation to exclude phasicity. Intra-abdominal ascites is redemonstrated Paracentesis Ultrasound 02/16/25 11:33 IMPRESSION: 1. Successful ultrasound-guided paracentesis yielding 2650 mL of yellow fluid. Labs Labs: Laboratory Results - last 24 hr 02/15/25 02/16/25 02/17/25 20:26 05:12 04:33 WBC 5.0 RBC 2.40 L Hgb 8.4 L Hct 24.9 L MCV 103.8 H MCH 35.0 H MCHC 33.7 RDW 14.3 Plt Count 142 L MPV 10.6 H Immature Gran % (Auto) 0.2 Neut % (Auto) 68.5 Lymph % (Auto) 18.9 [place] % (Auto) 6.6 Eos % (Auto) 4.8 H Baso % (Auto) 1.0 Lymph # (Auto) 0.95 [place] # (Auto) 0.3 Eos # (Auto) 0.2 Baso # (Auto) 0.1 Abs Immat Gran (auto) 0.01 Absolute Neuts (auto) 3.4 Absolute Nucleated RBC 0.000 Nucleated RBC % 0.0 PT 23.1 H INR 2.0 APTT 45.8 H Sodium 133 L Potassium 3.7 Chloride 100 Carbon Dioxide 23 Anion Gap 10 BUN 24 H Creatinine 1.95 H Estim Creat Clear Calc 32 Estimated GFR 33 L Glucose 95 Calcium 7.9 L Total Bilirubin 1.7 H AST 38 ALT 16 Alkaline Phosphatase 228 H Total Protein 5.3 L 5.0 L Albumin 2.6 L Ur Random Creatinine 102 U Random Total Protein 48 H Protein/Creatinin Ratio 471 H
--- NOTE | 2025-02-17 15:00 | P.PNGI_ITS ---
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 This was during investigation of an elevated iron saturation %. However, heterozygous state does not make a diagnosis of Hereditary hemochromatosis which requires homozygous status. His iron overload status is related to his chronic alcohol use and not to HHC. Family counseling is only needed in people with homozygous states, unless he has children and the mother is a known carrier of the gene mutation. Subjective Date/time seen: 02/17/25 15:00 Objective Data Vital Signs Vital Signs: Vital Signs - 24 hr 02/16/25 20:00 02/16/25 20:26 02/16/25 20:26 Temperature 98.2 F 98.2 F 98.2 F Pulse Rate 80 97 102 H Respiratory Rate 18 18 18 Blood Pressure 90/58 L 96/56 L 94/53 L Pulse Oximetry 96 94 100 Oxygen Delivery 02/16/25 20:45 02/16/25 22:00 02/17/25 04:33 Temperature 98.2 F 98.8 F Pulse Rate 80 90 Respiratory Rate 18 18 Blood Pressure 90/58 L 97/52 L Pulse Oximetry 96 95 Oxygen Delivery Room Air 02/17/25 09:00 02/17/25 09:00 02/17/25 14:00 Temperature 97.9 F Pulse Rate 90 93 Respiratory Rate 18 14 Blood Pressure 97/52 L 100/62 Pulse Oximetry 95 98 Oxygen Delivery Room Air Intake/Output Intake/Output: Intake & Output 02/14/25 02/15/25 02/16/25 02/17/25 23:59 23:59 23:59 23:59 Intake Total 9876 035 7366 410 Output Total 8903 610 2069 100 Balance 310 Meds/Results Medications: Active Medications Generic Name Dose Route Start Last Admin Trade Name Freq PRN Reason Stop Dose Admin Acetaminophen 650 mg 02/13/25 14:21 02/17/25 02:48 Acetaminophen 325 Mg Tablet PO 650 mg Q4H PRN Administration Mild Pain (1-3) or Fever Enoxaparin Sodium 40 mg 02/17/25 21:00 Enoxaparin 40 Mg/0.4 Ml Syringe SUB-Q QHS PABLO Fluticasone Propionate 1 spray 02/17/25 21:00 Fluticasone Propionate 0.05% Na Spr 16 Gm Btl (*Bkc) NASAL Q12HR [facility] Folic Acid 1 mg 02/14/25 09:00 02/17/25 09:00 Folic Acid 1 Mg Tablet PO 1 mg QAM PABLO Administration Furosemide 20 mg 02/17/25 06:30 02/17/25 08:59 Furosemide Inj 40 Mg/4 Ml Vial IV PUSH Not Given Q8HR [facility] Magnesium Oxide 400 mg 02/14/25 09:00 02/17/25 09:00 Magnesium Oxide 400 Mg Tablet PO 400 mg BID PABLO Administration Metoprolol Succinate 50 mg 02/14/25 09:00 02/17/25 09:06 Metoprolol Succinate Ext Rel 50 Mg Tabcr PO Not Given DAILY [facility] Multivitamins Therapeutic 1 tablet 02/14/25 09:00 02/17/25 09:00 Multivitamins Therapeutic Tab (*Bkc) PO 1 tablet DAILY PABLO Administration Ondansetron HCl 4 mg 02/13/25 14:21 02/17/25 10:00 Ondansetron Inj 4 Mg/2 Ml Vial IV PUSH 4 mg Q4H PRN Administration Nausea Pantoprazole Sodium 40 mg 02/14/25 09:00 02/17/25 09:00 Pantoprazole 40 Mg Tablet PO 40 mg QAM PABLO Administration Tamsulosin HCl 0.4 mg 02/14/25 09:00 02/17/25 09:00 Tamsulosin Hcl 0.4 Mg Capsule PO 0.4 mg QAM PABLO Administration Vitamin D 5,000 units 02/14/25 09:00 02/17/25 09:00 Cholecalciferol 5,000 Units Tablet PO 5,000 units DAILY PABLO Administration Radiology Results: ITS Impressions Chest X-Ray 02/13/25 12:24 IMPRESSION: 1. Small pleural effusions, right worse than left. 2. Airspace opacities in right lower lung zone, consistent with atelectasis versus pneumonia. 3. Cardiomegaly. Abdomen/Pelvis CT 02/13/25 12:32 IMPRESSION: 1. Likely anasarca with small left and small to moderate-sized right pleural effusions, moderate amount of ascites and prominent body wall and less severe mesenteric and retroperitoneal edema. 2. Few tiny nonobstructing renal stones Multiple calyces of both kidneys with no hydronephrosis and bilateral internal ureteral stents in expected positions. 3. Infrarenal IVC filter. Upper Quadrant Ultrasound 02/15/25 09:15 IMPRESSION: Fatty infiltration of the liver with a possible nodular contour. The portal vein is patent without Doppler interrogation to exclude phasicity. Intra-abdominal ascites is redemonstrated Paracentesis Ultrasound 02/16/25 11:33 IMPRESSION: 1. Successful ultrasound-guided paracentesis yielding 2650 mL of yellow fluid. Labs Labs: Laboratory Results - last 24 hr 02/15/25 02/16/25 02/16/25 20:26 05:12 05:13 WBC RBC Hgb Hct MCV MCH MCHC RDW Plt Count MPV Immature Gran % (Auto) Neut % (Auto) Lymph % (Auto) [place] % (Auto) Eos % (Auto) Baso % (Auto) Lymph # (Auto) [place] # (Auto) Eos # (Auto) Baso # (Auto) Abs Immat Gran (auto) Absolute Neuts (auto) Absolute Nucleated RBC Nucleated RBC % PT INR APTT Sodium Potassium Chloride Carbon Dioxide Anion Gap BUN Creatinine Estim Creat Clear Calc Estimated GFR Glucose Calcium Total Bilirubin AST ALT Alkaline Phosphatase Total Protein 5.3 L Albumin Ur Random Creatinine 102 U Random Total Protein 48 H Protein/Creatinin Ratio 471 H SHAN Screen Negative 02/17/25 04:33 WBC 5.0 RBC 2.40 L Hgb 8.4 L Hct 24.9 L MCV 103.8 H MCH 35.0 H MCHC 33.7 RDW 14.3 Plt Count 142 L MPV 10.6 H Immature Gran % (Auto) 0.2 Neut % (Auto) 68.5 Lymph % (Auto) 18.9 [place] % (Auto) 6.6 Eos % (Auto) 4.8 H Baso % (Auto) 1.0 Lymph # (Auto) 0.95 [place] # (Auto) 0.3 Eos # (Auto) 0.2 Baso # (Auto) 0.1 Abs Immat Gran (auto) 0.01 Absolute Neuts (auto) 3.4 Absolute Nucleated RBC 0.000 Nucleated RBC % 0.0 PT 23.1 H INR 2.0 APTT 45.8 H Sodium 133 L Potassium 3.7 Chloride 100 Carbon Dioxide 23 Anion Gap 10 BUN 24 H Creatinine 1.95 H Estim Creat Clear Calc 32 Estimated GFR 33 L Glucose 95 Calcium 7.9 L Total Bilirubin 1.7 H AST 38 ALT 16 Alkaline Phosphatase 228 H Total Protein 5.0 L Albumin 2.6 L Ur Random Creatinine U Random Total Protein Protein/Creatinin Ratio SHAN Screen
[2025-02-17 20:33] LABS: Immunofixation, Serum Normal pattern.
[2025-02-17] MEDS: FLUTICASONE PROPIONATE 0.05% NA SPR 16 GM BTL (*BKC) 1 SPRAY NASAL (21:02)
[2025-02-17] MEDS: ENOXAPARIN 40 MG/0.4 ML SYRINGE SUB-Q (21:02)
[2025-02-18] VITALS (9 sets, daily range): BP systolic 89–105; BP diastolic 40–62; PULSE 62–100; RESP 16–18; TEMP 36.6–37; O2SAT 95–98
[2025-02-18 05:26] LABS: Basophils Percent Auto 0.9 % (0.2-1.2); Eosinophils Absolute Auto 0.3 K/mm3 (0-0.3); Eosinophils Percent Auto 5.9 % (0-4.4); Hematocrit 24.4 % (42.0-52.0); Hemoglobin 8.3 g/dL (14.0-18.0); Lymphocytes Percent Auto 17.4 % (18.3-44.2); Mean Corpuscular Hemoglobin 34.9 pg (26-34); Mean Corpuscular Volume 102.5 fl (80-100); Mean Platelet Volume 10.2 fl (7.4-10.4); Monocytes Absolute Auto 0.4 K/mm3 (0.1-0.6); Monocytes Percent Auto 7.6 % (2.6-8.5); Neutrophils Absolute Auto 3.1 K/mm3 (1.3-6.7); Neutrophils Percent Auto 68.2 % (45.5-73.1); Platelet Count Result 143 k/mm3 (150-375); Red Blood Count 2.38 M/mm3 (4.6-6.20); Red Cell Distribution Width 14.5 % (11.5-14.5); White Blood Count 4.6 K/mm3 (4.5-10.0)
[2025-02-18 05:38] LABS: Alanine Aminotransferase 18 U/L (6-50); Albumin Level 2.5 g/dL (3.5-5.1); Alkaline Phosphatase 244 U/L (38-126); Anion Gap 9 mmol/L (4-12); Aspartate Amino Transferase 42 U/L (17-59); Bilirubin,Total 1.9 mg/dL (0.2-1.3); Blood Urea Nitrogen 27 mg/dL (9-20); Calcium 7.8 mg/dL (8.4-10.2); Carbon Dioxide 26 mmol/L (22-30); Chloride 99 mmol/L (98-107); Estimated CRCL calculation 29 ml/min; Estimated Glomerular Filt Rate 31; Glucose 98 mg/dL (65-110); INR 1.9; Potassium 3.8 mmol/L (3.4-5.0); Prothrombin Time 21.8 Seconds (11.1-14.7); Sodium 134 mmol/L (137-145)
[2025-02-18] MEDS: MAGNESIUM OXIDE 400 MG TABLET PO ×2 (10:01→16:08)
[2025-02-18] MEDS: CHOLECALCIFEROL 5,000 UNITS TABLET 5000 UNITS PO (10:01)
[2025-02-18] MEDS: FOLIC ACID 1 MG TABLET PO (10:01)
[2025-02-18] MEDS: TAMSULOSIN HCL 0.4 MG CAPSULE PO (10:01)
[2025-02-18] MEDS: MULTIVITAMINS THERAPEUTIC TAB (*BKC) 1 TABLET PO (10:01)
[2025-02-18] MEDS: PANTOPRAZOLE 40 MG TABLET PO (10:01)
--- NOTE | 2025-02-18 10:45 | P.PNIM_ITS ---
Progress Note: A&P Assessment and Plan (1) CHF (congestive heart failure): Qualifiers: Heart failure chronicity: unspecified Heart failure type: unspecified Qualified Code(s): I50.9 - Heart failure, unspecified Code(s): I50.9 - Heart failure, unspecified Status: Acute (2) Atrial fibrillation: Qualifiers: Atrial fibrillation type: paroxysmal Qualified Code(s): I48.0 - Paroxysmal atrial fibrillation Code(s): I48.91 - Unspecified atrial fibrillation Status: Chronic (3) Coagulopathy: Code(s): D68.9 - Coagulation defect, unspecified Status: Acute Plan (1) Acute kidney injury: Code(s): N17.9 - Acute kidney failure, unspecified Status: Acute Assessment and Plan: Patient with normal baseline Cr 1.1-1.5 range in 2023. Cr was 2.0 in November and he was just hospitalized here in early January for LISA Cr up to 3.6 felt related to obstructive uropathy. He had bilateral ureteric stones with bilateral hydronephrotic changes. He had bilateral ureteral stents placed and renal function did return to normal (1.13 at discharge). Although not completely accurate, he was fluid positive 18L. He was discharged on 01/27 on HCTZ but his losartan was stopped. Cr 1.41 on 02/03 and was 1.7 on admission here. UA showing 2+ protein, 3+ blood (>100 RBC) but could be related to stents. Urine Eos negative. Urine prot/Cr ratio 0.7gm. Gerald 40 with FENa 0.5% on diuretics. CT Abd/Pelvis showing; -- Likely anasarca with small left and small to moderate-sized right pleural effusions, moderate amount of ascites and prominent body wall and less severe mesenteric and retroperitoneal edema -- Few tiny nonobstructing renal stones and multiple calyces of both kidneys with no hydronephrosis and bilateral internal ureteral stents in expected positions. -- Infrarenal IVC filter. Patient was noted to be fluid overloaded so he was started on diuretics and dose advanced. Cr up to 2.0 so diuretics held. Diuretics resumed but GI felt this should be held for now. Nephrology consulted and appreciate their input. (2) Volume overload: Code(s): E87.70 - Fluid overload, unspecified Status: Acute Assessment and Plan: Patient with anasarca present on admission. Concern for either CHF, renal failure and/or hepatic failure. Nephrotic syndrome seems less likely and good UOP with diuretics Echo showing EF 65-70%, indeterminate diastolic fxn, mild-mod AI and moderate pulmonary HTN. RUQ US showing fatty infiltration of the liver with a possible nodular contour and ascites. Coagulopathy noted despite just being on Xarelto. Ammonia 32. Bili 1.4. Albumin 2.3. Child class C with MELD score of 34. Fluid overload probably multifactorial but mostly related to cirrhosis Paracentesis performed 02/16 with removal of 2650mL of yellow fluid showing 109 WBC with no PMNs. Path showing no malignancy. Other studies pending Continue to monitor. Resume diuretics when okay with others. (3) Cirrhosis: Code(s): K74.60 - Unspecified cirrhosis of liver Status: Acute Assessment and Plan: As above. He does have a hx of heavy alcohol use in the past. Was also on Amiodarone for an extended period. HIV and Hepatitis panel negative. 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 [place] related to cirrhosis. (5) Coagulopathy: Code(s): D68.9 - Coagulation defect, unspecified Status: Acute Assessment and Plan: INR 6.1 on admission. He does take Xarelto. Vit K given and Xarelto held. INR better at 2.0 Follow (6) Macrocytic anemia: Code(s): D53.9 - Nutritional anemia, unspecified Status: Acute Assessment and Plan: Patient with chronic anemia with Hgb 11 range. Hgb mostly 8 range last admission Hgb 9.6 on admission here and down to 7-8 range now B12/folate normal earlier this month. Labs in Nov: Iron normal with low TIBC 141 and iron sat of 67%. Ferritin 137 Monitor HH. Stool guaiac ordered. (7) Atrial fibrillation: Qualifiers: Atrial fibrillation type: paroxysmal Qualified Code(s): I48.0 - Paroxysmal atrial fibrillation Code(s): I48.91 - Unspecified atrial fibrillation Status: Chronic Assessment and Plan: Patient with chronic AFib. Echo as above. Rate controlled. Xarelto on hold. Resume when okay with others (8) Hypothyroidism: Code(s): E03.9 - Hypothyroidism, unspecified Status: Acute Assessment and Plan: TSH elevated at 12.8 but FT4 also elevated at 2.88 to suggest TSH driven hyperthyroidism but he is on levothyroxine 50mcg daily. Chart review has shown this in the past as well. FSH and LH also elevated last year but related to low T. Consider also related to a pituitary alpha subunit. Cortisol level okay. ACTH pending. Stop levothyroxine and see if FT4 normalizes. (9) Obstructive sleep apnea: Code(s): G47.33 - Obstructive sleep apnea (adult) (pediatric) Status: Acute Assessment and Plan: Stable. Patient refusing BiPAP. Continue to encourage BiPAP use. (10) Kidney stones: Code(s): N20.0 - Calculus of kidney Status: Acute Assessment and Plan: Patient with bilateral ureteric stones with bilateral hydronephrotic changes by CT scan on January 19. Urology consulted and patient underwent cystoscopy, bilateral retrogrades, bilateral ureteroscopy with stone extraction, bilateral ureteral stent placement on 01/20/25. Imaging this admission showing resolution of the hydronephrosis. Arrange follow up for patient with urology to have stents removed. Plan DVT prophylaxis - elevated INR; Lovenox Code status - full Disp - PT/OT ordered. 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 Hemoglobin stable 8.3 on the baseline Patient feels better today, still has general weakness. Patient denies focal weakness, abdomen pain, nausea vomiting or bloody stools. Exam Narrative: GENERAL: Pleasant, in no acute distress. Well-nourished. - EYES: EOMI. Anicteric. - HENT: Moist mucous membranes. - LUNGS: Clear to auscultation bilateral ly, no wheezing, rhonchi, or rales. - CARDIOVASCULAR: Irregular rhythm. No murmur. No JVD. - ABDOMEN: Soft, non-tender and non-dist ended. No palpable masses. - EXTREMITIES: 2+ lower extremities gabriel ma. Peripheral pulses 2+. Non-tender. - NEUROLOGIC: No focal neurological defi cits. CN II-XII grossly intact. - PSYCHIATRIC: Awake, Alert and oriented x 3. Appropriate mood and affect. - SKIN: No rashes or lesions. Warm. - LYMPH: No cervical lymphadenopathy. Objective Data Vital Signs Vital Signs: Vital Signs - 24 hr 02/17/25 14:00 02/17/25 19:50 02/17/25 19:53 Temperature 97.9 F 98.7 F 98.7 F Pulse Rate 93 94 96 Respiratory Rate 14 18 18 Blood Pressure 100/62 92/56 L 95/59 L Pulse Oximetry 98 96 100 Oxygen Delivery 02/17/25 19:56 02/17/25 19:58 02/17/25 20:00 Temperature 98.7 F 98.7 F Pulse Rate 104 H 89 Respiratory Rate 18 18 Blood Pressure 83/57 L 92/56 L Pulse Oximetry 97 100 Oxygen Delivery Room Air 02/18/25 04:22 02/18/25 08:11 02/18/25 08:15 Temperature 98.4 F 98.1 F Pulse Rate 87 88 Respiratory Rate 18 17 Blood Pressure 90/49 L 100/53 L Pulse Oximetry 95 98 Oxygen Delivery Room Air 02/18/25 10:07 Temperature Pulse Rate 88 Respiratory Rate Blood Pressure Pulse Oximetry Oxygen Delivery Intake/Output Intake/Output: Intake & Output 02/15/25 02/16/25 02/17/25 02/18/25 23:59 23:59 23:59 23:59 Intake Total 820 1350 890 510 Output Total 900 3550 300 400 Balance -80 -2200 590 110 Meds/Results Medications: Active Medications Generic Name Dose Route Start Last Admin Trade Name Freq PRN Reason Stop Dose Admin Acetaminophen 650 mg 02/13/25 14:21 02/17/25 02:48 Acetaminophen 325 Mg Tablet PO 650 mg Q4H PRN Administration Mild Pain (1-3) or Fever Enoxaparin Sodium 40 mg 02/17/25 21:00 02/17/25 21:02 Enoxaparin 40 Mg/0.4 Ml Syringe SUB-Q 40 mg QHS PABLO Administration Fluticasone Propionate 1 spray 02/17/25 21:00 02/18/25 10:09 Fluticasone Propionate 0.05% Na Spr 16 Gm Btl (*Bkc) NASAL Not Given Q12HR [facility] Folic Acid 1 mg 02/14/25 09:00 02/18/25 10:01 Folic Acid 1 Mg Tablet PO 1 mg QAM PABLO Administration Furosemide 20 mg 02/17/25 06:30 02/17/25 08:59 Furosemide Inj 40 Mg/4 Ml Vial IV PUSH Not Given Q8HR PABLO Magnesium Oxide 400 mg 02/14/25 09:00 02/18/25 10:01 Magnesium Oxide 400 Mg Tablet PO 400 mg BID PABLO Administration Metoprolol Succinate 50 mg 02/14/25 09:00 02/18/25 10:07 Metoprolol Succinate Ext Rel 50 Mg Tabcr PO Not Given DAILY [facility] Multivitamins Therapeutic 1 tablet 02/14/25 09:00 02/18/25 10:01 Multivitamins Therapeutic Tab (*Bkc) PO 1 tablet DAILY PABLO Administration Ondansetron HCl 4 mg 02/13/25 14:21 02/17/25 10:00 Ondansetron Inj 4 Mg/2 Ml Vial IV PUSH 4 mg Q4H PRN Administration Nausea Pantoprazole Sodium 40 mg 02/14/25 09:00 02/18/25 10:01 Pantoprazole 40 Mg Tablet PO 40 mg QAM PABLO Administration Tamsulosin HCl 0.4 mg 02/14/25 09:00 02/18/25 10:01 Tamsulosin Hcl 0.4 Mg Capsule PO 0.4 mg QAM PABLO Administration Vitamin D 5,000 units 02/14/25 09:00 02/18/25 10:01 Cholecalciferol 5,000 Units Tablet PO 5,000 units DAILY PABLO Administration Radiology Results: ITS Impressions Chest X-Ray 02/13/25 12:24 IMPRESSION: 1. Small pleural effusions, right worse than left. 2. Airspace opacities in right lower lung zone, consistent with atelectasis versus pneumonia. 3. Cardiomegaly. Abdomen/Pelvis CT 02/13/25 12:32 IMPRESSION: 1. Likely anasarca with small left and small to moderate-sized right pleural effusions, moderate amount of ascites and prominent body wall and less severe mesenteric and retroperitoneal edema. 2. Few tiny nonobstructing renal stones Multiple calyces of both kidneys with no hydronephrosis and bilateral internal ureteral stents in expected positions. 3. Infrarenal IVC filter. Upper Quadrant Ultrasound 02/15/25 09:15 IMPRESSION: Fatty infiltration of the liver with a possible nodular contour. The portal vein is patent without Doppler interrogation to exclude phasicity. Intra-abdominal ascites is redemonstrated Paracentesis Ultrasound 02/16/25 11:33 IMPRESSION: 1. Successful ultrasound-guided paracentesis yielding 2650 mL of yellow fluid. Labs Labs: Laboratory Results - last 24 hr 02/15/25 02/16/25 02/16/25 20:26 05:12 05:13 WBC RBC Hgb Hct MCV MCH MCHC RDW Plt Count MPV Immature Gran % (Auto) Neut % (Auto) Lymph % (Auto) [place] % (Auto) Eos % (Auto) Baso % (Auto) Lymph # (Auto) [place] # (Auto) Eos # (Auto) Baso # (Auto) Abs Immat Gran (auto) Absolute Neuts (auto) Absolute Nucleated RBC Nucleated RBC % PT INR Sodium Potassium Chloride Carbon Dioxide Anion Gap BUN Creatinine Estim Creat Clear Calc Estimated GFR Glucose Calcium Total Bilirubin AST ALT Alkaline Phosphatase Total Protein Albumin Serum Immunofixation Normal pattern. Urine Immunofixation SHAN Screen Negative 02/18/25 05:09 WBC 4.6 RBC 2.38 L Hgb 8.3 L Hct 24.4 L MCV 102.5 H MCH 34.9 H MCHC 34.0 RDW 14.5 Plt Count 143 L MPV 10.2 Immature Gran % (Auto) 0.0 Neut % (Auto) 68.2 Lymph % (Auto) 17.4 L [place] % (Auto) 7.6 Eos % (Auto) 5.9 H Baso % (Auto) 0.9 Lymph # (Auto) 0.80 L [place] # (Auto) 0.4 Eos # (Auto) 0.3 Baso # (Auto) 0.0 Abs Immat Gran (auto) 0.00 Absolute Neuts (auto) 3.1 Absolute Nucleated RBC 0.000 Nucleated RBC % 0.0 PT 21.8 H INR 1.9 Sodium 134 L Potassium 3.8 Chloride 99 Carbon Dioxide 26 Anion Gap 9 BUN 27 H Creatinine 2.09 H Estim Creat Clear Calc 29 Estimated GFR 31 L Glucose 98 Calcium 7.8 L Total Bilirubin 1.9 H AST 42 ALT 18 Alkaline Phosphatase 244 H Total Protein 5.0 L Albumin 2.5 L Serum Immunofixation Urine Immunofixation SHAN Screen
--- NOTE | 2025-02-18 14:03 | PM.PNNEP ---
Subjective Date/time seen: 02/18/25 14:03 Objective Data Vital Signs Vital Signs: Vital Signs Temp Pulse Resp BP Pulse Ox O2 Del Method 02/18/25 14:00 98.6 F 94 16 90/40 L 98 02/18/25 14:00 98.6 F 94 16 90/40 L 98 02/18/25 10:07 88 02/18/25 08:15 98.1 F 88 17 100/53 L 98 02/18/25 08:11 Room Air 02/18/25 04:22 98.4 F 87 18 90/49 L 95 02/17/25 20:00 Room Air 02/17/25 19:58 98.7 F 89 18 92/56 L 100 02/17/25 19:56 98.7 F 104 H 18 83/57 L 97 02/17/25 19:53 98.7 F 96 18 95/59 L 100 02/17/25 19:50 98.7 F 94 18 92/56 L 96 Intake/Output Intake/Output: Intake & Output 02/15/25 02/16/25 02/17/25 02/18/25 23:59 23:59 23:59 23:59 Intake Total 820 1350 890 950 Output Total 900 3550 300 950 Balance -80 -2200 590 0 Meds/Results Medications: Active Medications Generic Name Dose Route Start Last Admin Trade Name Freq PRN Reason Stop Dose Admin Acetaminophen 650 mg 02/13/25 14:21 02/17/25 02:48 Acetaminophen 325 Mg Tablet PO 650 mg Q4H PRN Administration Mild Pain (1-3) or Fever Enoxaparin Sodium 40 mg 02/17/25 21:00 02/17/25 21:02 Enoxaparin 40 Mg/0.4 Ml Syringe SUB-Q 40 mg QHS PABLO Administration Fluticasone Propionate 1 spray 02/17/25 21:00 02/18/25 10:09 Fluticasone Propionate 0.05% Na Spr 16 Gm Btl (*Bkc) NASAL Not Given Q12HR PABLO Folic Acid 1 mg 02/14/25 09:00 02/18/25 10:01 Folic Acid 1 Mg Tablet PO 1 mg QAM PABLO Administration Furosemide 20 mg 02/17/25 06:30 02/17/25 08:59 Furosemide Inj 40 Mg/4 Ml Vial IV PUSH Not Given Q8HR [facility]AB[facility] Magnesium Oxide 400 mg 02/14/25 09:00 02/18/25 16:08 Magnesium Oxide 400 Mg Tablet PO 400 mg BID PABLO Administration Metoprolol Succinate 50 mg 02/14/25 09:00 02/18/25 10:07 Metoprolol Succinate Ext Rel 50 Mg Tabcr PO Not Given DAILY PABLO Multivitamins Therapeutic 1 tablet 02/14/25 09:00 02/18/25 10:01 Multivitamins Therapeutic Tab (*Bkc) PO 1 tablet DAILY PABLO Administration Ondansetron HCl 4 mg 02/13/25 14:21 02/17/25 10:00 Ondansetron Inj 4 Mg/2 Ml Vial IV PUSH 4 mg Q4H PRN Administration Nausea Pantoprazole Sodium 40 mg 02/14/25 09:00 02/18/25 10:01 Pantoprazole 40 Mg Tablet PO 40 mg QAM PABLO Administration Tamsulosin HCl 0.4 mg 02/14/25 09:00 02/18/25 10:01 Tamsulosin Hcl 0.4 Mg Capsule PO 0.4 mg QAM PABLO Administration Vitamin D 5,000 units 02/14/25 09:00 02/18/25 10:01 Cholecalciferol 5,000 Units Tablet PO 5,000 units DAILY PABLO Administration Radiology Results: ITS Impressions Chest X-Ray 02/13/25 12:24 IMPRESSION: 1. Small pleural effusions, right worse than left. 2. Airspace opacities in right lower lung zone, consistent with atelectasis versus pneumonia. 3. Cardiomegaly. Abdomen/Pelvis CT 02/13/25 12:32 IMPRESSION: 1. Likely anasarca with small left and small to moderate-sized right pleural effusions, moderate amount of ascites and prominent body wall and less severe mesenteric and retroperitoneal edema. 2. Few tiny nonobstructing renal stones Multiple calyces of both kidneys with no hydronephrosis and bilateral internal ureteral stents in expected positions. 3. Infrarenal IVC filter. Upper Quadrant Ultrasound 02/15/25 09:15 IMPRESSION: Fatty infiltration of the liver with a possible nodular contour. The portal vein is patent without Doppler interrogation to exclude phasicity. Intra-abdominal ascites is redemonstrated Paracentesis Ultrasound 02/16/25 11:33 IMPRESSION: 1. Successful ultrasound-guided paracentesis yielding 2650 mL of yellow fluid. Labs Labs: Laboratory Tests 02/18/25 05:09 02/18/25 05:09 PT 21.8 H INR 1.9 Calcium 7.8 L Total Bilirubin 1.9 H AST 42 ALT 18 Alkaline Phosphatase 244 H Total Protein 5.0 L Albumin 2.5 L Serum Immunofixation Tot Complement (CH50) Microbiology 02/16/25 11:15 Ascites Fluid Anaerobic Culture - Preliminary 02/16/25 11:15 Ascites Fluid Aerobic Culture - Preliminary
--- NOTE | 2025-02-18 15:32 | WPDGIPROGNO ---
Progress Note: A&P Assessment and Plan (1) Ascites: Qualifiers: Ascites type: other type Qualified Code(s): R18.8 - Other ascites Code(s): R18.8 - Other ascites Status: Acute Assessment and Plan: Patient with significant ascites and edema. Creatinine today slightly worse than yesterday. Suggest continuing mechanical measures to control the leg edema as suggested yesterday. Diuretics are currently not recommended due to his elevated creatinine. Atrial fibrillation currently managed with Lovenox, since DOAC and Warfarin are contraindicated in Child C cirrhotics. Will continue to monitor. 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 Suggest a dietitian evaluation to optimize low sodium diet. (2) Cirrhosis: Code(s): K74.60 - Unspecified cirrhosis of liver Status: Acute (3) Renal failure (ARF), acute on chronic: Code(s): N17.9 - Acute kidney failure, unspecified; N18.9 - Chronic kidney disease, unspecified Status: Acute Subjective Date/time seen: 02/18/25 15:32 Interval history: No new symptoms, patient not complaining of shortness of breath. Exam Narrative: Unchanged - LLEE edema persist 3+. Objective Data Vital Signs Vital Signs: Vital Signs - 24 hr 02/17/25 19:50 02/17/25 19:53 02/17/25 19:56 Temperature 98.7 F 98.7 F 98.7 F Pulse Rate 94 96 104 H Respiratory Rate 18 18 18 Blood Pressure 92/56 L 95/59 L 83/57 L Pulse Oximetry 96 100 97 Oxygen Delivery 02/17/25 19:58 02/17/25 20:00 02/18/25 04:22 Temperature 98.7 F 98.4 F Pulse Rate 89 87 Respiratory Rate 18 18 Blood Pressure 92/56 L 90/49 L Pulse Oximetry 100 95 Oxygen Delivery Room Air 02/18/25 08:11 02/18/25 08:15 02/18/25 10:07 Temperature 98.1 F Pulse Rate 88 88 Respiratory Rate 17 Blood Pressure 100/53 L Pulse Oximetry 98 Oxygen Delivery Room Air 02/18/25 14:00 02/18/25 14:00 02/18/25 14:05 Temperature 98.6 F 98.6 F Pulse Rate 94 94 62 Respiratory Rate 16 16 16 Blood Pressure 90/40 L 90/40 L 89/61 L Pulse Oximetry 98 98 97 Oxygen Delivery 02/18/25 14:10 Temperature Pulse Rate 62 Respiratory Rate 16 Blood Pressure 96/51 L Pulse Oximetry 98 Oxygen Delivery Intake/Output Intake/Output: Intake & Output 02/15/25 02/16/25 02/17/25 02/18/25 23:59 23:59 23:59 23:59 Intake Total 820 1350 890 630 Output Total 900 3550 300 400 Balance -80 -2200 590 230 Meds/Results Medications: Active Medications Generic Name Dose Route Start Last Admin Trade Name Freq PRN Reason Stop Dose Admin Acetaminophen 650 mg 02/13/25 14:21 02/17/25 02:48 Acetaminophen 325 Mg Tablet PO 650 mg Q4H PRN Administration Mild Pain (1-3) or Fever Enoxaparin Sodium 40 mg 02/17/25 21:00 02/17/25 21:02 Enoxaparin 40 Mg/0.4 Ml Syringe SUB-Q 40 mg QHS PABLO Administration Fluticasone Propionate 1 spray 02/17/25 21:00 02/18/25 10:09 Fluticasone Propionate 0.05% Na Spr 16 Gm Btl (*Bkc) NASAL Not Given Q12HR [facility]ABLO Folic Acid 1 mg 02/14/25 09:00 02/18/25 10:01 Folic Acid 1 Mg Tablet PO 1 mg QAM PABLO Administration Furosemide 20 mg 02/17/25 06:30 02/17/25 08:59 Furosemide Inj 40 Mg/4 Ml Vial IV PUSH Not Given Q8HR [facility]AB[facility] Magnesium Oxide 400 mg 02/14/25 09:00 02/18/25 10:01 Magnesium Oxide 400 Mg Tablet PO 400 mg BID PABLO Administration Metoprolol Succinate 50 mg 02/14/25 09:00 02/18/25 10:07 Metoprolol Succinate Ext Rel 50 Mg Tabcr PO Not Given DAILY [facility]ABLO Multivitamins Therapeutic 1 tablet 02/14/25 09:00 02/18/25 10:01 Multivitamins Therapeutic Tab (*Bkc) PO 1 tablet DAILY [facility] Administration Ondansetron HCl 4 mg 02/13/25 14:21 02/17/25 10:00 Ondansetron Inj 4 Mg/2 Ml Vial IV PUSH 4 mg Q4H PRN Administration Nausea Pantoprazole Sodium 40 mg 02/14/25 09:00 02/18/25 10:01 Pantoprazole 40 Mg Tablet PO 40 mg QAM PABLO Administration Tamsulosin HCl 0.4 mg 02/14/25 09:00 02/18/25 10:01 Tamsulosin Hcl 0.4 Mg Capsule PO 0.4 mg QAM PABLO Administration Vitamin D 5,000 units 02/14/25 09:00 02/18/25 10:01 Cholecalciferol 5,000 Units Tablet PO 5,000 units DAILY PABLO Administration Radiology Results: ITS Impressions Chest X-Ray 02/13/25 12:24 IMPRESSION: 1. Small pleural effusions, right worse than left. 2. Airspace opacities in right lower lung zone, consistent with atelectasis versus pneumonia. 3. Cardiomegaly. Abdomen/Pelvis CT 02/13/25 12:32 IMPRESSION: 1. Likely anasarca with small left and small to moderate-sized right pleural effusions, moderate amount of ascites and prominent body wall and less severe mesenteric and retroperitoneal edema. 2. Few tiny nonobstructing renal stones Multiple calyces of both kidneys with no hydronephrosis and bilateral internal ureteral stents in expected positions. 3. Infrarenal IVC filter. Upper Quadrant Ultrasound 02/15/25 09:15 IMPRESSION: Fatty infiltration of the liver with a possible nodular contour. The portal vein is patent without Doppler interrogation to exclude phasicity. Intra-abdominal ascites is redemonstrated Paracentesis Ultrasound 02/16/25 11:33 IMPRESSION: 1. Successful ultrasound-guided paracentesis yielding 2650 mL of yellow fluid. Labs Labs: Laboratory Results - last 24 hr 02/15/25 02/16/25 02/18/25 20:26 05:12 05:09 WBC 4.6 RBC 2.38 L Hgb 8.3 L Hct 24.4 L MCV 102.5 H MCH 34.9 H MCHC 34.0 RDW 14.5 Plt Count 143 L MPV 10.2 Immature Gran % (Auto) 0.0 Neut % (Auto) 68.2 Lymph % (Auto) 17.4 L [place] % (Auto) 7.6 Eos % (Auto) 5.9 H Baso % (Auto) 0.9 Lymph # (Auto) 0.80 L [place] # (Auto) 0.4 Eos # (Auto) 0.3 Baso # (Auto) 0.0 Abs Immat Gran (auto) 0.00 Absolute Neuts (auto) 3.1 Absolute Nucleated RBC 0.000 Nucleated RBC % 0.0 PT 21.8 H INR 1.9 Sodium 134 L Potassium 3.8 Chloride 99 Carbon Dioxide 26 Anion Gap 9 BUN 27 H Creatinine 2.09 H Estim Creat Clear Calc 29 Estimated GFR 31 L Glucose 98 Calcium 7.8 L Total Bilirubin 1.9 H AST 42 ALT 18 Alkaline Phosphatase 244 H Total Protein 5.0 L Albumin 2.5 L Serum Immunofixation Normal pattern. Urine Immunofixation
--- NOTE | 2025-02-18 16:23 | PC.NURSE ---
On 02/18/25, the student, [Patricia Hernandez ], provided care and completed [facility] documentation on this patient. I have reviewed the student's documentation and agree with the findings.
[2025-02-18 17:08] LABS: Complement Total CH50 41 U/mL (31-60)
[2025-02-18 19:09] LABS: LDH Peritoneal Fluid 44 U/L (<63)
[2025-02-18] MEDS: ENOXAPARIN 40 MG/0.4 ML SYRINGE SUB-Q (21:04)
[2025-02-18 21:14] LABS: Albumin 2.6 g/dL (3.8-4.8); Alpha 1 Globulin 0.3 g/dL (0.2-0.3); Alpha 2 Globulin 0.4 g/dL (0.5-0.9); Beta 1 Globulin 0.3 g/dL (0.4-0.6); Gamma Globulin 1.1 g/dL (0.8-1.7)
[2025-02-19 04:17] VITALS: BP 98/60; PULSE 98; RESP 18; TEMP 36.5; O2SAT 97
[2025-02-19 07:45] VITALS: BP 97/58; PULSE 69; RESP 16; TEMP 36.8; O2SAT 97
[2025-02-19 07:47] VITALS: BP 100/56; BP 98/61; PULSE 104; PULSE 105; RESP 16; TEMP 36.8; O2SAT 93; O2SAT 98
[2025-02-19 08:33] VITALS: PULSE 104
[2025-02-19] MEDS: TAMSULOSIN HCL 0.4 MG CAPSULE PO (08:33)
[2025-02-19] MEDS: MAGNESIUM OXIDE 400 MG TABLET PO (08:33)
[2025-02-19] MEDS: FOLIC ACID 1 MG TABLET PO (08:33)
[2025-02-19] MEDS: FLUTICASONE PROPIONATE 0.05% NA SPR 16 GM BTL (*BKC) 1 SPRAY NASAL (08:33)
[2025-02-19] MEDS: METOPROLOL SUCCINATE EXT REL 50 MG TABCR PO (08:33)
[2025-02-19] MEDS: CHOLECALCIFEROL 5,000 UNITS TABLET 5000 UNITS PO (08:33)
[2025-02-19] MEDS: MULTIVITAMINS THERAPEUTIC TAB (*BKC) 1 TABLET PO (08:33)
[2025-02-19 09:07] LABS: Basophils Percent Auto 0.7 % (0.2-1.2); Eosinophils Absolute Auto 0.1 K/mm3 (0-0.3); Eosinophils Percent Auto 2.4 % (0-4.4); Hematocrit 24.8 % (42.0-52.0); Hemoglobin 8.5 g/dL (14.0-18.0); Immature Granulocyte Absolute 0.01 K/mm3 (0.00-0.031); Immature Granulocyte Percent A 0.2 % (0-0.5); Lymphocytes Absolute Auto 0.74 K/mm3 (0.9-3.2); Lymphocytes Percent Auto 12.7 % (18.3-44.2); Mean Corpuscular HGB Conc 34.3 g/dl (32-36); Mean Corpuscular Hemoglobin 35.1 pg (26-34); Mean Corpuscular Volume 102.5 fl (80-100); Monocytes Absolute Auto 0.4 K/mm3 (0.1-0.6); Monocytes Percent Auto 6.5 % (2.6-8.5); Neutrophils Absolute Auto 4.5 K/mm3 (1.3-6.7); Neutrophils Percent Auto 77.5 % (45.5-73.1); Platelet Count Result 150 k/mm3 (150-375); Red Blood Count 2.42 M/mm3 (4.6-6.20); Red Cell Distribution Width 14.4 % (11.5-14.5); White Blood Count 5.8 K/mm3 (4.5-10.0)
[2025-02-19 09:19] LABS: Alanine Aminotransferase 19 U/L (6-50); Albumin Level 2.6 g/dL (3.5-5.1); Alkaline Phosphatase 262 U/L (38-126); Anion Gap 7 mmol/L (4-12); Aspartate Amino Transferase 44 U/L (17-59); Bilirubin,Total 2.2 mg/dL (0.2-1.3); Blood Urea Nitrogen 31 mg/dL (9-20); Calcium 7.8 mg/dL (8.4-10.2); Carbon Dioxide 25 mmol/L (22-30); Chloride 98 mmol/L (98-107); Estimated CRCL calculation 31 ml/min; Estimated Glomerular Filt Rate 32; Glucose 131 mg/dL (65-110); Phosphorus 3.5 mg/dL (2.5-4.5); Sodium 130 mmol/L (137-145)
--- NOTE | 2025-02-19 10:35 | P.PNIM_ITS ---
Progress Note: A&P Assessment and Plan (1) CHF (congestive heart failure): Qualifiers: Heart failure chronicity: unspecified Heart failure type: unspecified Qualified Code(s): I50.9 - Heart failure, unspecified Code(s): I50.9 - Heart failure, unspecified Status: Acute (2) Atrial fibrillation: Qualifiers: Atrial fibrillation type: paroxysmal Qualified Code(s): I48.0 - Paroxysmal atrial fibrillation Code(s): I48.91 - Unspecified atrial fibrillation Status: Chronic (3) Coagulopathy: Code(s): D68.9 - Coagulation defect, unspecified Status: Acute Plan (1) Acute kidney injury: Code(s): N17.9 - Acute kidney failure, unspecified Status: Acute Assessment and Plan: Patient with normal baseline Cr 1.1-1.5 range in 2023. Cr was 2.0 in November and he was just hospitalized here in early January for LISA Cr up to 3.6 felt related to obstructive uropathy. He had bilateral ureteric stones with bilateral hydronephrotic changes. He had bilateral ureteral stents placed and renal function did return to normal (1.13 at discharge). Although not completely accurate, he was fluid positive 18L. He was discharged on 01/27 on HCTZ but his losartan was stopped. Cr 1.41 on 02/03 and was 1.7 on admission here. UA showing 2+ protein, 3+ blood (>100 RBC) but could be related to stents. Urine Eos negative. Urine prot/Cr ratio 0.7gm. Gerald 40 with FENa 0.5% on diuretics. CT Abd/Pelvis showing; -- Likely anasarca with small left and small to moderate-sized right pleural effusions, moderate amount of ascites and prominent body wall and less severe mesenteric and retroperitoneal edema -- Few tiny nonobstructing renal stones and multiple calyces of both kidneys with no hydronephrosis and bilateral internal ureteral stents in expected positions. -- Infrarenal IVC filter. Patient was noted to be fluid overloaded so he was started on diuretics and dose advanced. Cr up to 2.0 so diuretics held. Diuretics resumed but GI felt this should be held for now. Nephrology consulted and appreciate their input. Information Technology Advisor agreed to discharge patient today. Patient kidney function is on the baseline (2) Volume overload: Code(s): E87.70 - Fluid overload, unspecified Status: Acute Assessment and Plan: Patient with anasarca present on admission. Concern for either CHF, renal failure and/or hepatic failure. Nephrotic syndrome seems less likely and good UOP with diuretics Echo showing EF 65-70%, indeterminate diastolic fxn, mild-mod AI and moderate pulmonary HTN. RUQ US showing fatty infiltration of the liver with a possible nodular contour and ascites. Coagulopathy noted despite just being on Xarelto. Ammonia 32. Bili 1.4. Albumin 2.3. Child class C with MELD score of 34. Fluid overload probably multifactorial but mostly related to cirrhosis Paracentesis performed 02/16 with removal of 2650mL of yellow fluid showing 109 WBC with no PMNs. Path showing no malignancy. Other studies pending Now euvolemia (3) Cirrhosis: Code(s): K74.60 - Unspecified cirrhosis of liver Status: Acute Assessment and Plan: As above. He does have a hx of heavy alcohol use in the past. Was also on Amiodarone for an extended period. HIV and Hepatitis panel negative. 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 [place] related to cirrhosis. (5) Coagulopathy: Code(s): D68.9 - Coagulation defect, unspecified Status: Acute Assessment and Plan: INR 6.1 on admission. He does take Xarelto. Vit K given and Xarelto held. INR better at 2.0 Follow (6) Macrocytic anemia: Code(s): D53.9 - Nutritional anemia, unspecified Status: Acute Assessment and Plan: Patient with chronic anemia with Hgb 11 range. Hgb mostly 8 range last admission Hgb 9.6 on admission here and down to 7-8 range now B12/folate normal earlier this month. Labs in Nov: Iron normal with low TIBC 141 and iron sat of 67%. Ferritin 137 Monitor HH. Stool guaiac ordered. (7) Atrial fibrillation: Qualifiers: Atrial fibrillation type: paroxysmal Qualified Code(s): I48.0 - Paroxysmal atrial fibrillation Code(s): I48.91 - Unspecified atrial fibrillation Status: Chronic Assessment and Plan: Patient with chronic AFib. Echo as above. Rate controlled. Xarelto on hold. Resume when okay with others (8) Hypothyroidism: Code(s): E03.9 - Hypothyroidism, unspecified Status: Acute Assessment and Plan: TSH elevated at 12.8 but FT4 also elevated at 2.88 to suggest TSH driven hyperthyroidism but he is on levothyroxine 50mcg daily. Chart review has shown this in the past as well. FSH and LH also elevated last year but related to low T. Consider also related to a pituitary alpha subunit. Cortisol level okay. ACTH pending. Stop levothyroxine and see if FT4 normalizes. (9) Obstructive sleep apnea: Code(s): G47.33 - Obstructive sleep apnea (adult) (pediatric) Status: Acute Assessment and Plan: Stable. Patient refusing BiPAP. Continue to encourage BiPAP use. (10) Kidney stones: Code(s): N20.0 - Calculus of kidney Status: Acute Assessment and Plan: Patient with bilateral ureteric stones with bilateral hydronephrotic changes by CT scan on January 19. Urology consulted and patient underwent cystoscopy, bilateral retrogrades, bilateral ureteroscopy with stone extraction, bilateral ureteral stent placement on 01/20/25. Imaging this admission showing resolution of the hydronephrosis. Arrange follow up for patient with urology to have stents removed. Plan DVT prophylaxis - elevated INR; Lovenox Code status - full Disp - PT/OT ordered. Subjective Date/time seen: 02/19/25 10:35 Interval history: No new symptoms, patient not complaining of shortness of breath. Patient denies chest pain abdomen pain nausea vomiting diarrhea. Patient afebrile blood pressure stable Exam Narrative: GENERAL: Pleasant, in no acute distress. Well-nourished. - EYES: EOMI. Anicteric. - HENT: Moist mucous membranes. - LUNGS: Clear to auscultation bilateral ly, no wheezing, rhonchi, or rales. - CARDIOVASCULAR: Irregular rhythm. No murmur. No JVD. - ABDOMEN: Soft, non-tender and non-dist ended. No palpable masses. - EXTREMITIES: 2+ lower extremities gabriel ma. Peripheral pulses 2+. Non-tender. - NEUROLOGIC: No focal neurological defi cits. CN II-XII grossly intact. - PSYCHIATRIC: Awake, Alert and oriented x 3. Appropriate mood and affect. - SKIN: No rashes or lesions. Warm. - LYMPH: No cervical lymphadenopathy. Objective Data Vital Signs Vital Signs: Vital Signs - 24 hr 02/18/25 14:00 02/18/25 14:00 02/18/25 14:05 Temperature 98.6 F 98.6 F Pulse Rate 94 94 62 Respiratory Rate 16 16 16 Blood Pressure 90/40 L 90/40 L 89/61 L Pulse Oximetry 98 98 97 Oxygen Delivery 02/18/25 14:10 02/18/25 19:36 02/18/25 19:36 Temperature 98.0 F 98 F Pulse Rate 62 91 91 Respiratory Rate 16 18 18 Blood Pressure 96/51 L 103/62 103/62 Pulse Oximetry 98 97 97 Oxygen Delivery 02/18/25 19:37 02/18/25 19:40 02/18/25 20:00 Temperature 98 F 98 F Pulse Rate 100 97 Respiratory Rate 18 18 Blood Pressure 105/53 L 92/56 L Pulse Oximetry 97 95 Oxygen Delivery Room Air 02/19/25 04:17 02/19/25 07:45 02/19/25 07:47 Temperature 97.7 F 98.2 F 98.2 F Pulse Rate 98 69 104 H Respiratory Rate 18 16 16 Blood Pressure 98/60 L 97/58 L 98/61 L Pulse Oximetry 97 97 98 Oxygen Delivery 02/19/25 07:47 02/19/25 08:30 02/19/25 08:33 Temperature 98.2 F Pulse Rate 105 H 104 H Respiratory Rate 16 Blood Pressure 100/56 L Pulse Oximetry 93 Oxygen Delivery Room Air Intake/Output Intake/Output: Intake & Output 02/16/25 02/17/25 02/18/25 02/19/25 23:59 23:59 23:59 23:59 Intake Total 1350 890 950 570 Output Total 3550 300 950 300 Balance -2200 590 0 270 Meds/Results Medications: Active Medications Generic Name Dose Route Start Last Admin Trade Name Freq PRN Reason Stop Dose Admin Acetaminophen 650 mg 02/13/25 14:21 02/17/25 02:48 Acetaminophen 325 Mg Tablet PO 650 mg Q4H PRN Administration Mild Pain (1-3) or Fever Enoxaparin Sodium 40 mg 02/17/25 21:00 02/18/25 21:04 Enoxaparin 40 Mg/0.4 Ml Syringe SUB-Q 40 mg QHS PABLO Administration Fluticasone Propionate 1 spray 02/17/25 21:00 02/19/25 08:33 Fluticasone Propionate 0.05% Na Spr 16 Gm Btl (*Bkc) NASAL 1 spray Q12HR PABLO Administration Folic Acid 1 mg 02/14/25 09:00 02/19/25 08:33 Folic Acid 1 Mg Tablet PO 1 mg QAM PABLO Administration Furosemide 20 mg 02/17/25 06:30 02/17/25 08:59 Furosemide Inj 40 Mg/4 Ml Vial IV PUSH Not Given Q8HR PABLO Magnesium Oxide 400 mg 02/14/25 09:00 02/19/25 08:33 Magnesium Oxide 400 Mg Tablet PO 400 mg BID PABLO Administration Metoprolol Succinate 50 mg 02/14/25 09:00 02/19/25 08:33 Metoprolol Succinate Ext Rel 50 Mg Tabcr PO 50 mg DAILY PABLO Administration Multivitamins Therapeutic 1 tablet 02/14/25 09:00 02/19/25 08:33 Multivitamins Therapeutic Tab (*Bkc) PO 1 tablet DAILY PABLO Administration Ondansetron HCl 4 mg 02/13/25 14:21 02/17/25 10:00 Ondansetron Inj 4 Mg/2 Ml Vial IV PUSH 4 mg Q4H PRN Administration Nausea Tamsulosin HCl 0.4 mg 02/14/25 09:00 02/19/25 08:33 Tamsulosin Hcl 0.4 Mg Capsule PO 0.4 mg QAM PABLO Administration Vitamin D 5,000 units 02/14/25 09:00 02/19/25 08:33 Cholecalciferol 5,000 Units Tablet PO 5,000 units DAILY PABLO Administration Radiology Results: ITS Impressions Chest X-Ray 02/13/25 12:24 IMPRESSION: 1. Small pleural effusions, right worse than left. 2. Airspace opacities in right lower lung zone, consistent with atelectasis jl yair pneumonia. 3. Cardiomegaly. Abdomen/Pelvis CT 02/13/25 12:32 IMPRESSION: 1. Likely anasarca with small left and small to moderate-sized right pleural effusions, moderate amount of ascites and prominent body wall and less severe mesenteric and retroperitoneal edema. 2. Few tiny nonobstructing renal stones Multiple calyces of both kidneys with no hydronephrosis and bilateral internal ureteral stents in expected positions. 3. Infrarenal IVC filter. Upper Quadrant Ultrasound 02/15/25 09:15 IMPRESSION: Fatty infiltration of the liver with a possible nodular contour. The portal vein is patent without Doppler interrogation to exclude phasicity. Intra-abdominal ascites is redemonstrated Paracentesis Ultrasound 02/16/25 11:33 IMPRESSION: 1. Successful ultrasound-guided paracentesis yielding 2650 mL of yellow fluid. Labs Labs: Laboratory Results - last 24 hr 02/16/25 02/16/25 02/16/25 05:12 05:13 11:15 WBC RBC Hgb Hct MCV MCH MCHC RDW Plt Count MPV Immature Gran % (Auto) Neut % (Auto) Lymph % (Auto) [place] % (Auto) Eos % (Auto) Baso % (Auto) Lymph # (Auto) [place] # (Auto) Eos # (Auto) Baso # (Auto) Abs Immat Gran (auto) Absolute Neuts (auto) Absolute Nucleated RBC Nucleated RBC % Sodium Potassium Chloride Carbon Dioxide Anion Gap BUN Creatinine Estim Creat Clear Calc Estimated GFR Glucose Calcium Phosphorus Total Bilirubin AST ALT Alkaline Phosphatase Total Protein Albumin 2.6 L Dqaas-3-Kqqvuwlli 0.3 Vrbbv-9-Xvktnapbe 0.4 L Jvfb-6-Wclkfaop 0.3 L Wlzl-0-Gboqnwxw 0.6 H Gamma Globulins 1.1 PEP Interpretation See note Peritoneal LDH 44 Tot Complement (CH50) 41 02/19/25 09:01 WBC 5.8 RBC 2.42 L Hgb 8.5 L Hct 24.8 L MCV 102.5 H MCH 35.1 H MCHC 34.3 RDW 14.4 Plt Count 150 MPV 10.0 Immature Gran % (Auto) 0.2 Neut % (Auto) 77.5 H Lymph % (Auto) 12.7 L [place] % (Auto) 6.5 Eos % (Auto) 2.4 Baso % (Auto) 0.7 Lymph # (Auto) 0.74 L [place] # (Auto) 0.4 Eos # (Auto) 0.1 Baso # (Auto) 0.0 Abs Immat Gran (auto) 0.01 Absolute Neuts (auto) 4.5 Absolute Nucleated RBC 0.000 Nucleated RBC % 0.0 Sodium 130 L Potassium 4.0 Chloride 98 Carbon Dioxide 25 Anion Gap 7 BUN 31 H Creatinine 2.03 H Estim Creat Clear Calc 31 Estimated GFR 32 L Glucose 131 H Calcium 7.8 L Phosphorus 3.5 Total Bilirubin 2.2 H AST 44 ALT 19 Alkaline Phosphatase 262 H Total Protein 6.0 L Albumin 2.6 L Buwam-0-Byqpjtlql Pdjbp-0-Ldbpkmnpv Sdkj-9-Kfevpxzo Ykrw-6-Wmmdcxnl Gamma Globulins PEP Interpretation Peritoneal LDH Tot Complement (CH50)
--- NOTE | 2025-02-19 10:35 | PM.DS ---
DS: Admitting Diagnosis Discharge Date 02/19/25 Admitting Diagnosis (1) CHF (congestive heart failure): Qualifiers: Heart failure chronicity: unspecified Heart failure type: unspecified Qualified Code(s): I50.9 - Heart failure, unspecified Code(s): I50.9 - Heart failure, unspecified Status: Acute (2) Atrial fibrillation: Qualifiers: Atrial fibrillation type: paroxysmal Qualified Code(s): I48.0 - Paroxysmal atrial fibrillation Code(s): I48.91 - Unspecified atrial fibrillation Status: Chronic (3) Coagulopathy: Code(s): D68.9 - Coagulation defect, unspecified Status: Acute DS: Discharge Diagnosis Discharge Diagnosis (1) CHF (congestive heart failure): Qualifiers: Heart failure chronicity: unspecified Heart failure type: unspecified Qualified Code(s): I50.9 - Heart failure, unspecified Code(s): I50.9 - Heart failure, unspecified Status: Acute (2) Atrial fibrillation: Qualifiers: Atrial fibrillation type: paroxysmal Qualified Code(s): I48.0 - Paroxysmal atrial fibrillation Code(s): I48.91 - Unspecified atrial fibrillation Status: Chronic (3) Coagulopathy: Code(s): D68.9 - Coagulation defect, unspecified Status: Acute DS: Summary Hospital Course Hospital Course: This is a pleasant 79-year-old male with history of atrial fibrillation on rivaroxaban, hypertension, obstructive sleep apnea, pulmonary embolism, deep venous thrombosis, chronic macrocytic anemia, kidney stones, gastroesophageal reflux disease, depression, and alcohol abuse presented to the emergency department via private vehicle from his doctor's office for evaluation swelling and weight gain. He was admitted to the hospital earlier this month with acute kidney injury, hematuria, bilateral hydronephrosis, and bilateral ureteral stones. Rivaroxaban was held and he underwent cystoscopy with stone extraction and bilateral ureteral stent placement per Dr. Rick. On discharge he was noted to have swelling in his lower extremities and his hydrochlorothiazide was resumed after his creatinine trended back to baseline. His rivaroxaban was also resumed. He had a follow-up appointment with his primary care provider today and was directed to the ED for further evaluation of significant swelling and a reported 38 pound weight gain within the last several weeks. He is feeling short of breath with exertion. His appetite is as per usual. He has been trying to drink more water as he was told he was dehydrated last time he was here and he has been drinking 60 oz a day. He is urinating frequently but in smaller amounts. At times his urine is francisco javier but he has not noticed any luis blood and is no longer passing clots. He denies fever, cold and flu symptoms, chest pain, pleuritic pain, palpitations, nausea, vomiting, diarrhea, and dysuria. He has no known history of congestive heart failure or liver disease. In the ED: Vital signs on arrival include a temperature of 98?, blood pressure 84/56, pulse 101, respiratory 20, SpO2 99% on room air. Labs were significant for WBC count is 7.9, hemoglobin 9.6, PTT 54.3, INR 6.0, PTT 67.8, sodium 131, BUN 22, creatinine 1.70, total bilirubin 1.5, alkaline phosphatase 301, proBNP 3870, total protein 6.0, albumin 2.6. CT of the abdomen and pelvis showed anasarca with small left and small to moderate right-sided pleural effusions, moderate ascites, and prominent body wall edema, and a few tiny nonobstructing renal stones. He was given furosemide 40 mg IV, albumin 25 g IV, and phytonadione 10 mg subQ and he is being admitted in this setting for further treatment and evaluation anasarca and acute kidney injury. The following med issues have been addressed during hospitalization Acute kidney injury: Code(s): N17.9 - Acute kidney failure, unspecified Status: Acute Assessment and Plan: Patient with normal baseline Cr 1.1-1.5 range in 2023. Cr was 2.0 in November and he was just hospitalized here in early January for LISA Cr up to 3.6 felt related to obstructive uropathy. He had bilateral ureteric stones with bilateral hydronephrotic changes. He had bilateral ureteral stents placed and renal function did return to normal (1.13 at discharge). Although not completely accurate, he was fluid positive 18L. He was discharged on 01/27 on HCTZ but his losartan was stopped. Cr 1.41 on 02/03 and was 1.7 on admission here. UA showing 2+ protein, 3+ blood (>100 RBC) but could be related to stents. Urine Eos negative. Urine prot/Cr ratio 0.7gm. Gerald 40 with FENa 0.5% on diuretics. CT Abd/Pelvis showing; -- Likely anasarca with small left and small to moderate-sized right pleural effusions, moderate amount of ascites and prominent body wall and less severe mesenteric and retroperitoneal edema -- Few tiny nonobstructing renal stones and multiple calyces of both kidneys with no hydronephrosis and bilateral internal ureteral stents in expected positions. -- Infrarenal IVC filter. Patient was noted to be fluid overloaded so he was started on diuretics and dose advanced. Cr up to 2.0 so diuretics held. Diuretics resumed but GI felt this should be held for now. Nephrology consulted and appreciate their input. Certified Credit Counselor agreed to discharge patient today. Patient kidney function is on the baseline (2) Volume overload: Code(s): E87.70 - Fluid overload, unspecified Status: Acute Assessment and Plan: Patient with anasarca present on admission. Concern for either CHF, renal failure and/or hepatic failure. Nephrotic syndrome seems less likely and good UOP with diuretics Echo showing EF 65-70%, indeterminate diastolic fxn, mild-mod AI and moderate pulmonary HTN. RUQ US showing fatty infiltration of the liver with a possible nodular contour and ascites. Coagulopathy noted despite just being on Xarelto. Ammonia 32. Bili 1.4. Albumin 2.3. Child class C with MELD score of 34. Fluid overload probably multifactorial but mostly related to cirrhosis Paracentesis performed 02/16 with removal of 2650mL of yellow fluid showing 109 WBC with no PMNs. Path showing no malignancy. Other studies pending Now euvolemia (3) Cirrhosis: Code(s): K74.60 - Unspecified cirrhosis of liver Status: Acute Assessment and Plan: As above. He does have a hx of heavy alcohol use in the past. Was also on Amiodarone for an extended period. HIV and Hepatitis panel negative. 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 [place] related to cirrhosis. (5) Coagulopathy: Code(s): D68.9 - Coagulation defect, unspecified Status: Acute Assessment and Plan: INR 6.1 on admission. He does take Xarelto. Vit K given and Xarelto held. INR better at 2.0 Follow (6) Macrocytic anemia: Code(s): D53.9 - Nutritional anemia, unspecified Status: Acute Assessment and Plan: Patient with chronic anemia with Hgb 11 range. Hgb mostly 8 range last admission Hgb 9.6 on admission here and down to 7-8 range now B12/folate normal earlier this month. Labs in Nov: Iron normal with low TIBC 141 and iron sat of 67%. Ferritin 137 Monitor HH. Stool guaiac ordered. (7) Atrial fibrillation: Qualifiers: Atrial fibrillation type: paroxysmal Qualified Code(s): I48.0 - Paroxysmal atrial fibrillation Code(s): I48.91 - Unspecified atrial fibrillation Status: Chronic Assessment and Plan: Patient with chronic AFib. Echo as above. Rate controlled. Xarelto on hold. Resume when okay with others (8) Hypothyroidism: Code(s): E03.9 - Hypothyroidism, unspecified Status: Acute Assessment and Plan: TSH elevated at 12.8 but FT4 also elevated at 2.88 to suggest TSH driven hyperthyroidism but he is on levothyroxine 50mcg daily. Chart review has shown this in the past as well. FSH and LH also elevated last year but related to low T. Consider also related to a pituitary alpha subunit. Cortisol level okay. ACTH pending. Stop levothyroxine and see if FT4 normalizes. (9) Obstructive sleep apnea: Code(s): G47.33 - Obstructive sleep apnea (adult) (pediatric) Status: Acute Assessment and Plan: Stable. Patient refusing BiPAP. Continue to encourage BiPAP use. (10) Kidney stones: Code(s): N20.0 - Calculus of kidney Status: Acute Assessment and Plan: Patient with bilateral ureteric stones with bilateral hydronephrotic changes by CT scan on January 19. Urology consulted and patient underwent cystoscopy, bilateral retrogrades, bilateral ureteroscopy with stone extraction, bilateral ureteral stent placement on 01/20/25. Imaging this admission showing resolution of the hydronephrosis. follow up for patient with urology to have stents removed. Time Spent with Patient Time attestation: Total time spent providing and/or coordinating discharge services: Exam Narrative: GENERAL: Pleasant, in no acute distress. Well-nourished. - EYES: EOMI. Anicteric. - HENT: Moist mucous membranes. - LUNGS: Clear to auscultation bilaterally, no wheezing, rhonchi, or rales. - CARDIOVASCULAR: Irregular rhythm. No murmur. No JVD. - ABDOMEN: Soft, non-tender and non-distended. No palpable masses. - EXTREMITIES: 2+ lower extremities edema. Peripheral pulses 2+. Non-tender. - NEUROLOGIC: No focal neurological deficits. CN II-XII grossly intact. - PSYCHIATRIC: Awake, Alert and oriented x 3. Appropriate mood and affect. - SKIN: No rashes or lesions. Warm. - LYMPH: No cervical lymphadenopathy. DS: Data Data Completed and Pending Completed studies during hospitalization: Pending at discharge 02/16/25 11:15 Cytology [PTH] Routine Labs on day of discharge: Labs from last 24 hours 02/19/25 02/16/25 02/16/25 09:01 11:15 05:13 WBC 5.8 RBC 2.42 L Hgb 8.5 L Hct 24.8 L MCV 102.5 H MCH 35.1 H MCHC 34.3 RDW 14.4 Plt Count 150 MPV 10.0 Immature Gran % (Auto) 0.2 Neut % (Auto) 77.5 H Lymph % (Auto) 12.7 L [place] % (Auto) 6.5 Eos % (Auto) 2.4 Baso % (Auto) 0.7 Lymph # (Auto) 0.74 L [place] # (Auto) 0.4 Eos # (Auto) 0.1 Baso # (Auto) 0.0 Abs Immat Gran (auto) 0.01 Absolute Neuts (auto) 4.5 Absolute Nucleated RBC 0.000 Nucleated RBC % 0.0 Sodium 130 L Potassium 4.0 Chloride 98 Carbon Dioxide 25 Anion Gap 7 BUN 31 H Creatinine 2.03 H Estim Creat Clear Calc 31 Estimated GFR 32 L Glucose 131 H Calcium 7.8 L Phosphorus 3.5 Total Bilirubin 2.2 H AST 44 ALT 19 Alkaline Phosphatase 262 H Total Protein 6.0 L Albumin 2.6 L Wor[place]-7-Uruniscat Metdp-0-Bgjyatoly Bovi-4-Xtgsbnox Xxod-5-Fgwrqgqj Gamma Globulins PEP Interpretation Peritoneal LDH 44 Tot Complement (CH50) 41 02/16/25 05:12 WBC RBC Hgb Hct MCV MCH MCHC RDW Plt Count MPV Immature Gran % (Auto) Neut % (Auto) Lymph % (Auto) [place] % (Auto) Eos % (Auto) Baso % (Auto) Lymph # (Auto) [place] # (Auto) Eos # (Auto) Baso # (Auto) Abs Immat Gran (auto) Absolute Neuts (auto) Absolute Nucleated RBC Nucleated RBC % Sodium Potassium Chloride Carbon Dioxide Anion Gap BUN Creatinine Estim Creat Clear Calc Estimated GFR Glucose Calcium Phosphorus Total Bilirubin AST ALT Alkaline Phosphatase Total Protein Albumin 2.6 L Josle-3-Rgjpdxvuw 0.3 Ysbze-0-Tfhqmxxwp 0.4 L Xplq-2-Mefgxlpl 0.3 L Nbdj-2-Azdywjjz 0.6 H Gamma Globulins 1.1 PEP Interpretation See note Peritoneal LDH Tot Complement (CH50) Preliminary micro results at discharge 02/16/25 11:15 Anaerobic Culture - Preliminary Ascites Fluid Aerobic Culture - Preliminary Discharge Plan Discharge Attending physician on discharge: Tigist Bro Consulting providers: Rigoberto Ackerman Discharging Clinician: Tigist Bro Anticipated Discharge Date/Time: 02/19/25 10:40 Patient Disposition: Home Health Service Discharge Instructions: Per Care Coordination: [facility] [phone] to resume for RN, Physical and Occupational Therapy. They will call you regarding resume of visits. Patient Instructions: Antibiotic Form, Rivaroxaban (By mouth) Patient Language: Belarusian Stand Alone Forms: General Discharge Information Follow-up/Referrals: Bhavesh Rick MD [Physician] - (Call for follow up regarding stent removal ) Discharge Medications: Continued cholecalciferol (vitamin D3) 125 mcg (5,000 unit) capsule 125 mcg PO DAILY metoprolol succinate 50 mg tablet extended release 24 hr 50 mg PO DAILY Xarelto 20 mg tablet 20 mg PO DAILY folic acid 1 mg PO DAILY multivitamin Tablet 1 tablet PO DAILY omeprazole 20 mg capsule,delayed release(DR/EC) 20 mg PO QAM magnesium oxide 400 mg (241.3 mg magnesium) Tablet 400 mg PO BID Qty: 60 0RF tamsulosin 0.4 mg Capsule 0.4 mg PO QAM Qty: 30 0RF levothyroxine 50 mcg tablet 75 mcg PO DAILY (DME) BD Luer-Martha Syringe 3 mL 25 x 1 1/2 syringe See Rx Instructions .ROUTE .MEDSUPPLY Qty: 100 0RF Rx Instructions: Use to draw up Testosterone (DME) needle (disp) 18 G [BD Regular [place]] 18 gauge x 1 needle See Rx Instructions .ROUTE .MEDSUPPLY Qty: 100 0RF Rx Instructions: Use to inject Testosterone Discontinued hydrochlorothiazide 25 mg tablet 12.5 mg PO DAILY Qty: 45 1RF Date of admission: 02/13/25 14:21 Primary Care Provider: Sheree Craven Admitting Provider: Michi Perry Attending physician on admission: Michi Perry Condition: Stable
[2025-02-19 14:38] LABS: Adrenocorticotropic Hormone 40 pg/mL (6-50)
--- NOTE | 2025-02-20 06:36 | P.CDI_ITS ---
<Statement entered by Tigist Bro MD - 03/04/25 08:06> This documentation has been reviewed and approved. CDI Query Clarification Request 1) Please clarify if CHF was present on admission, if CHF was present please answer type and acuity if known 2)Please specify type and acuity of heart failure if known. * Acute * Chronic * Acute on Chronic * Unknown * Systolic * Diastolic * Combined Systolic and Diastolic * Unknown The medical chart reflects the following: H&P on 02/13: At times his urine is francisco javier but he has not noticed any luis blood and is no longer passing clots. He denies fever, cold and flu symptoms, chest pain, pleuritic pain, palpitations, nausea, vomiting, diarrhea, and dysuria. He has no known history of congestive heart failure or liver disease. 02/14 -- Patient feeling better. Etiology unclear. BNP 3870. Echo showing EF 65- 70% with indeterminate diastolic fxn and moderate pulm HTN. Urine Prot/Cr ration 0.7grams. CT scan showing anasarca but lover appears normal. INR 6.1 but only on Xarelto - concern for liver disease. Check RUQ US to assess for liver nodularity. UOP is not brisk but on low dose Lasix given soft BP (repeat BP 116/77). TSH is elevated but so is FT4. Chart review showing elevated LH/FSH in the past. 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 Hold levothyroixine. Check ACTH and cortisol. Will discuss with urology about when patient needs followup for stent removal. 02/15: (2) Volume overload: Code(s): E87.70 - Fluid overload, unspecified Status: Acute Assessment and Plan: Patient with anasarca present on admission. Concern for either CHF, renal failure or hepatic failure. Nephrotic syndrome seems less likely and good UOP with Lasix. Echo showing EF 65-70%, indeterminate diastolic fxn, mild-mod AI and moderate pulmonary HTN. RUQ US showing fatty infiltration of the liver with a possible nodular contour and ascites. Coagulopathy noted despite just being on Xarelto. Ammonia 32. Bili 1.4. Albumin 2.3. Child class C with MELD score of 34. Fluid overload probably multifactorial but mostly related to liver disease. Will proceed with paracentesis. Change to Bumex. 02/17-: (2) Volume overload: Code(s): E87.70 - Fluid overload, unspecified Status: Acute Assessment and Plan: Patient with anasarca present on admission. Concern for either CHF, renal failure and/or hepatic failure. Nephrotic syndrome seems less likely and good UOP with diuretics Echo showing EF 65-70%, indeterminate diastolic fxn, mild-mod AI and moderate pulmonary HTN. RUQ US showing fatty infiltration of the liver with a possible nodular contour and ascites. Coagulopathy noted despite just being on Xarelto. Ammonia 32. Bili 1.4. Albumin 2.3. Child class C with MELD score of 34. Fluid overload probably multifactorial but mostly related to cirrhosis Paracentesis performed 02/16 with removal of 2650mL of yellow fluid showing 109 WBC with no PMNs. Path showing no malignancy. Other studies pending Continue to monitor. Resume diuretics when okay with others. D/C summary on 02/19: (1) CHF (congestive heart failure): Qualifiers: Heart failure chronicity: unspecified Heart failure type: unspecified Qualified Code(s): I50.9 - Heart failure, unspecified Code(s): I50.9 - Heart failure, unspecified Status: Acute
[2025-02-27 20:59] LABS: Albumin Peritoneal Fluid 0.8 g/dL; Amylase Peritoneal Fluid 15 U/L; Glucose Peritoneal Fluid 103 mg/dL; Total Protein Peritoneal Fluid <3.0 g/dL
== END 2025-02-19 12:40 | disposition home health service (06) | DRG 432 ==
LOC: ANHED 14:18 → ANHIMU 14:46 → ANH2MED 02-15 17:52
PROVIDERS: Internal Medicine Nephrology; Physician Assistant; Admitting Provider Internal Medicine; Emergency Provider Family Medicine; PCP Nurse Practitioner; Visit Provider Hospitalist
DX: K74.60 Unspecified cirrhosis of liver (principal); I50.33 Acute on chronic diastolic (congestive) heart failure; I13.0 Hypertensive heart and chronic kidney disease with heart failure and stage 1 through stage 4 chronic kidney disease, or unspecified chronic kidney disease; D68.9 Coagulation defect, unspecified; N17.9 Acute kidney failure, unspecified; I48.20 Chronic atrial fibrillation, unspecified; E87.1 Hypo-osmolality and hyponatremia; N18.9 Chronic kidney disease, unspecified; R60.1 Generalized edema; E03.9 Hypothyroidism, unspecified; D53.9 Nutritional anemia, unspecified; K21.9 Gastro-esophageal reflux disease without esophagitis; N20.0 Calculus of kidney; G47.33 Obstructive sleep apnea (adult) (pediatric); F32.A Depression, unspecified; F10.10 Alcohol abuse, uncomplicated; Z79.01 Long term (current) use of anticoagulants; Z87.442 Personal history of urinary calculi; Z86.718 Personal history of other venous thrombosis and embolism; Z86.711 Personal history of pulmonary embolism
CPT/HCPCS: 36415; 49083; 71046; 74176; 76705; 80048; 80053; 80074; 81001; 82024; 82042; 82140; 82150; 82533; 82550; 82570; 82945; 83615; 83735; 83880; 84100; 84155; 84156; 84157; 84165; 84166; 84300; 84439; 84443; 84484; 84540; 85025; 85610; 85730; 85999; 86038; 86039; 86160; 86162; 86334; 86335; 86703; 87070; 87075; 87205; 88108; 88305; 89051; 93005; 93306; 96365; 96372; 96375; 97110; 97161; 97165; 97530; 97535; 99285; A9270; G0432; J1650; J1939; J1940; J2405; J3430; P9047

== ENCOUNTER 2025-02-27 12:09 | Inpatient (IN) | payer MEDICARE, SELFPAY ==
[2025-02-27] VITALS (15 sets, daily range): BP systolic 90–119; BP diastolic 60–82; PULSE 83–100; RESP 12–20; TEMP 36.4; O2SAT 97–99; BMI 33.8
--- NOTE | ~2025-02-27 | US_ITS ---
EXAMINATION: US thyroid DATE: 03/04/2025 11:31 INDICATION: Elevated TSH and free T4 in a critically ill hospitalized patient TECHNIQUE: Multiple ultrasound images of the thyroid were obtained. COMPARISON: None. FINDINGS: The right thyroid lobe measures 4.6 x 1.7 x 2.3 cm. The left thyroid lobe measures 4.3 x 1.6 x 1.3 cm. The isthmus measures 0.3cm in anterior to posterior dimension. Subcentimeter cysts within both the right and left lobes of the thyroid gland, for which no further f ollow-up is needed. The parenchyma of the thyroid gland is coarse and heterogeneous, possibly secondary to patient's curr ent disease state rather than discrete thyroid disease. The vascularity of the thyroid gland is unremarkable, without increased vascularity to suggest thyroi ditis. IMPRESSION: Coarse heterogeneous echogenicity detected diffusely throughout the entirety of the thyroid gland, wi thout increased vascularity to suggest thyroiditis. Benign subcentimeter cysts (TR 1) detected bilaterally for which no further follow-up is needed. In a patient with elevated TSH and elevated free T4, the suggestion of a possible pituitary gland dis order would be more common than inherent thyroid disease. Reviewed, dictated and finalized at location A. IMPRESSION: Coarse heterogeneous echogenicity detected diffusely throughout the entirety of the thyroid gland, without increased vascularity to suggest thyroiditis. Benign subcentimeter cysts (TR 1) detected bilaterally for which no further fol low-up is needed. In a patient with elevated TSH and elevated free T4, the suggestion of a possib le pituitary gland disorder would be more common than inherent thyroid disease.
--- NOTE | ~2025-02-27 | CT_ITS ---
Non-contrast CT scan of the Abdomen and Pelvis Clinical indication: Majnao catheter placement Technique: 2.5 mm axial scans were obtained through the abdomen and pelvis without intravenous or or al contrast. Dose reduction technique was used on this scan by utilizing automated exposure control a nd iterative reconstruction technique. The dose-length product (DLP) was 1307.54 mGy-cm. COMPARISON: 02/27/2025 Findings: Images through the lung bases reveal moderate to large partially imaged right pleural effu [place] with partial right lower lobe atelectasis. Small left pleural effusion present.. Small bilateral nonobstructing renal stones are present. No ureteral stone or hydronephrosis. Bilater al ureteral stents are present. Possible micronodular contour of liver. No focal hepatic mass or biliary dilatation evident. Cholecys tectomy clips are present. The spleen, pancreas, and adrenals appear normal. There are atheroscleroti c calcifications of the aorta. IVC filter present. There is no evidence of bowel obstruction. Moderate abdominopelvic ascites present. Images through the pelvis were performed. Urinary bladder collapsed around a Majano catheter. No pelvi c mass evident. Impression: Majano catheter in satisfactory position within urinary bladder. Moderate to large right pleural effusion and small left pleural effusion with bibasilar atelectasis, right worse than left. Small bilateral nonobstructing renal stones. No hydronephrosis or ureteral stone. Bilateral ureteral stents. Possible mild cirrhotic change of liver. Moderate abdominopelvic ascites. Reviewed, dictated and finalized at [facility]. Impression: Majano catheter in satisfactory position within urinary bladder. Moderate to large right pleural effusion and small left pleural effusion with b ibasilar atelectasis, right worse than left. Small bilateral nonobstructing renal stones. No hydronephrosis or ureteral ston e. Bilateral ureteral stents. Possible mild cirrhotic change of liver. Moderate abdominopelvic ascites.
--- NOTE | ~2025-02-27 | CT_ITS ---
EXAMINATION: CT abdomen pelvis wo con DATE: 02/27/2025 14:44 INDICATION: Abdominal distention TECHNIQUE: Computed tomography (CT) of the abdomen and pelvis was performed without intravenous contr ast. Automated exposure control and iterative reconstruction technique were employed. The dose-length product was 465.63 mGy-cm. COMPARISON: 02/13/2025 FINDINGS: No significant change in a small to moderate-sized posterior layering right pleural effusion with dep endent compressive atelectasis in the right lower lobe. Additional discoid atelectasis more anteriorl y in the right middle and lower lobes. Interval increase in subtle groundglass opacities in the lingu la which could represent atelectasis or pneumonia. Tiny left pleural effusion. Cardiomegaly. Atherosc lerotic coronary artery calcific lesion. No pericardial effusion. Cholecystectomy clips the gallbladd er fossa. Liver, spleen, pancreas and bilateral adrenal glands are normal. Age-appropriate mild bilat eral renal atrophy with no hydronephrosis. A few tiny nonobstructing renal stones in lower pole calyc es of both kidneys. Bilateral internal ureteral stents in expected position with the proximal loops i n the bilateral renal pelvises and distal loops in the bladder. No stones seen alongside the ureteral stents. Bladder is otherwise unremarkable. Bowels are unremarkable with no evident wall thickening o r obstruction. Unchanged moderate amount of ascites throughout the abdomen and pelvis and extensive b reid wall edema. Additional unchanged mild mesenteric and retroperitoneal edema. No pathologically enl arged abdominal or pelvic lymphadenopathy. Mild scattered degenerative changes in the spine and pelv is. Infrarenal IVC filter. IMPRESSION: 1. No significant change in anasarca with very small left and small to moderate-sized right pleural e ffusions, moderate amount of ascites and prominent body wall and less severe mesenteric and retroperi toneal edema. 2. Increased mild groundglass opacity in the lingula which could represent atelectasis or pneumonia. 3. A few tiny nonobstructing renal stones Multiple calyces of both kidneys with no hydronephrosis an d bilateral internal ureteral stents in expected positions. 4. Infrarenal IVC filter. Reviewed, dictated and finalized at location A. IMPRESSION: 1. No significant change in anasarca with very small left and small to moderate -sized right pleural effusions, moderate amount of ascites and prominent body w all and less severe mesenteric and retroperitoneal edema. 2. Increased mild groundglass opacity in the lingula which could represent atel ectasis or pneumonia. 3. A few tiny nonobstructing renal stones Multiple calyces of both kidneys wit h no hydronephrosis and bilateral internal ureteral stents in expected position s. 4. Infrarenal IVC filter.
--- NOTE | ~2025-02-27 | US_ITS ---
EXAMINATION: US paracentesis abd w/image DATE: 03/02/2025 14:01 INDICATION: Ascites. TECHNIQUE: The procedure and its risks and benefits were discussed with the patient. Potential risks discussed included bleeding and infection. The skin was prepped and draped in sterile fashion. 1% lid ocaine was used for local anesthesia. Under ultrasound guidance, a 5 Fr catheter with trochar was adv anced into the ascites in the left lower quadrant. Fluid was aspirated into vacuum bottles. The emir ter was removed, and a dressing was applied. There were no immediate complications. FINDINGS: Ultrasound images demonstrate ascites and the catheter within the fluid. IMPRESSION: 1. Successful ultrasound-guided paracentesis yielding 5000 mL of francisco javier-colored fluid. Reviewed, dictated and finalized at location A.
--- NOTE | ~2025-02-27 | XR_ITS ---
EXAMINATION: XR chest 2V DATE: 02/27/2025 13:29 INDICATION: Shortness of breath TECHNIQUE: frontal and lateral views of the chest were obtained. COMPARISON: Chest radiograph dated 02/13/2025 FINDINGS: Lung volumes are decreased since the prior study. Very small left pleural effusion with blunting at t he posterior sulcus. No significant change in airspace opacities in the right lower lung zone consist ent with small right pleural effusion and associated atelectasis and/or pneumonia. No pulmonary edema or pneumothorax. Heart size within normal limits for AP technique. Unchanged tiny metallic densities at the left axilla and anterior neck. IMPRESSION: 1. No significant interval change in bilateral small pleural effusions, right greater than left with opacities at the right lung base which could represent associated atelectasis and/or pneumonia. Reviewed, dictated and finalized at location A. IMPRESSION: 1. No significant interval change in bilateral small pleural effusions, right g reater than left with opacities at the right lung base which could represent as sociated atelectasis and/or pneumonia.
--- NOTE | ~2025-02-27 | US_ITS ---
EXAMINATION: US paracentesis abd w/image DATE: 03/06/2025 14:37 INDICATION: Ascites. TECHNIQUE: The procedure and its risks and benefits were discussed with the patient. Potential risks discussed included bleeding and infection. The skin was prepped and draped in sterile fashion. 1% lid ocaine was used for local anesthesia. Under ultrasound guidance, a 5 Fr catheter with trochar was adv anced into the ascites in the left lower quadrant. Fluid was aspirated into vacuum bottles. The emir ter was removed, and a dressing was applied. There were no immediate complications. FINDINGS: Ultrasound images demonstrate ascites and the catheter within the fluid. IMPRESSION: 1. Successful ultrasound-guided paracentesis yielding 4200 mL of yellowish fluid. Reviewed, dictated and finalized at location A. IMPRESSION: 1. Successful ultrasound-guided paracentesis yielding 4200 mL of yellowish flu id.
--- NOTE | ~2025-02-27 | US_ITS ---
EXAMINATION: US paracentesis abd w/image DATE: 03/12/2025 10:45 INDICATION: Ascites. TECHNIQUE: The procedure and its risks and benefits were discussed with the patient. Potential risks discussed included bleeding and infection. The skin was prepped and draped in sterile fashion. 1% lid ocaine was used for local anesthesia. Under ultrasound guidance, a 5 Fr catheter with trochar was adv anced into the ascites in the left lower quadrant. Fluid was aspirated into vacuum bottles. The emir ter was removed, and a dressing was applied. There were no immediate complications. FINDINGS: Ultrasound images demonstrate ascites and the catheter within the fluid. IMPRESSION: 1. Successful ultrasound-guided paracentesis yielding 4500 mL of francisco javier-colored fluid. Reviewed, dictated and finalized at location A.
--- NOTE | 2025-02-27 12:11 | ECG_ITS ---
Test Date: 2025-02-27 12:13:12 Measurements Intervals [place] Rate: 85 P: 0 OR: 0 QRS: -76 QRSD: 157 T: 39 QT: 440 QTc: 525 Interpretive Statements ATRIAL FIBRILLATION RIGHT BUNDLE BRANCH BLOCK LEFT ANTERIOR FASCICULAR BLOCK POSSIBLE ANTERIOR MYOCARDIAL INFARCTION , OF INDETERMINATE AGE BASELINE ARTIFACT- I, II, III, AVR, AVL, V4 ABNORMAL ECG Compared to ECG 02/13/2025 11:22:38 NO SIGNIFICANT CHANGE Electronically Signed On 02-27-2025 12:19:25 CDT by Inocencio Concepcion D.O.
--- OUTSIDE RECORDS SUMMARY | 2025-02-27 12:25 | XMS_ITS ---
Author Name Adam Freire Address [address] [place] [address] Phone [phone] [place] Address [address] [place] [address] Phone [phone] Care Team Providers Care Senior Environmental Practice Leader Name Role Phone Adam Freire Unavailable [phone] Functional Status No Results Mental Status No [...] TABLET Oral 2 Times Daily Sat b 09:00:00 2016Jan 09 01:00:00 EST 2016 multivitamin with minerals tablet 1 tablet TABLET Oral 1 Time Daily supplement Sat Dec 30 09:30:00 2016Jan 09 01:00:00 EST 2016 TUBErsol [...]
--- OUTSIDE RECORDS SUMMARY | 2025-02-27 12:25 | XMS_ITS | Clinical Summary ---
Author Organization [facility] Address [address] [place] [address] Phone Care Team Providers Care Construction Checker Name Role Phone Gerry Cruz MD Primary Care Provider [phone] Allergies No known active allergies Medications metoprolol [...] on file Legal Sex Male 3:01 PM SUPERVISOR POWER REACTOR Gender Identity Not on file Sexual Orientation Not on file Last Filed Vital Signs Vital Sign Reading Time Taken Comments Blood Pressure 106/50 12/28/2016 7:00 AM SUPERVISOR POWER REACTOR Pulse 61 12/28/2016 7:00 AM SUPERVISOR POWER REACTOR Temperature 37.1 C (98.8 F) 12/28/2016 7:00 AM SUPERVISOR POWER REACTOR Respiratory Rate 20 12/28/2016 7:00 AM SUPERVISOR POWER REACTOR Oxygen Saturation 97% 12/28/2016 9:1 5 AM SUPERVISOR POWER REACTOR at rest and 96% with activity Inhaled Oxygen Concentration - - Weight 98.4 kg (217 lb) 12/25/2016 5:14 PM SUPERVISOR POWER REACTOR Height 170.2 cm (5' 7 ) 12/25/2016 5:14 PM SUPERVISOR POWER REACTOR Body Mass Index 33.99 12/25/2016 5:14 PM SUPERVISOR POWER REACTOR Plan of Treatment Health Maintenance Due Date [...] this topic Medical Devices Implanted Type Area [place] Device Identifier Shelf Expiration Date Model / Serial / Lot Cmnt Bn Endrn Sst Gnta 40gm Hvisc - [id number] Implanted:Qty: 2 on 12/25/2016 by Diego Diaz MD at [facility] IMPLANT Right: Knee [employer] / [employer] 05/18/2018 [id number] / / [id number] Implant Knee Patella Attune Medial Dome - [id number] Implanted:Qty: 1 on 12/25/2016 by Diego Diaz MD at [facility] IMPLANT Right: Knee [employer] / [employer] 09/18/2021 [id number] / / [id number] Attune Femoral Posterior Stabilized Implanted:Qty: 1 on 12/25/2016 by Diego Diaz MD at [facility] Right: Knee [employer] 02/16/2026 [id number] / / [id number] Attune Tibial Base Rotating Platform Implanted:Qty: 1 on 12/25/2016 by Diego Diaz MD at [facility] Right: Knee [employer] 11/18/2026 [id number] / / [id number] Attune Tibial Insert Rotating Platform Posterior Stabilized Implanted:Qty: 1 on 12/25/2016 by Diego Diaz MD at [facility] Right: Knee [employer] 09/18/2020 [id number] / / [id number] Insurance MEDICARE [facility] Advance Directives Documents on File Type Date Recorded Patient Medical Diagnostic Radiographer Expl anation Power of Rn Orthopaedics for Health Care 12/26/2016 10:31 AM POA-HC * Full Code (Latest Code Status on File) Date Activated Date Inactivated Comments 12/26/2016 6:53 AM 12/28/2016 4:44 PM CPR-Full Treat ment: FULL ARREST: Attempt Resuscitation/CPR wit intubation and mechanical ventilation. PRE-ARREST: Use entire range of life support measures to stabilize the patient. Care Teams Construction Checker Relationship Specialty Start Date End Date Gerry Cruz MD [address] [place] [id number] PCP - General Family Medicine 12/14/16
--- OUTSIDE RECORDS SUMMARY | 2025-02-27 12:25 | XMS_ITS | Referral Summary ---
Author Organization [address] [facility] Address [address] [place] [address] Care Team Providers Care Agency Sales Management Assistant Name Role Phone Wilver Maldonado DO Primary Care Provider [phone] Encounters Date Type Department Care Team Description 12/03/2024 Telephone [facility] [address] [facility] [address], [place] [address] Tye Kirby III, MD Scheduling Appointments 12/01/[address] [facility] Cardiology [address] [facility] [address] [place] [address] Lou Kent NP from Last 3 Months Allergies Active Allergy [...] 1 tablet (50 mcg total) by mouth ballet dancer before breakfast Active thiamine (VITAMIN B-1) 100 [...] on file Legal Sex Male 8:58 PM TRUANT OFFICER Gender Identity Not on file Sexual Orientation Not on file Last Filed Vital Signs Vital Sign Reading Time Taken Comments Blood Pressure 96/60 11/28/2024 11:22 AM TRUANT OFFICER Pulse 90 11/28/2024 11:22 AM TRUANT OFFICER Temperature - - Respiratory Rate 12 01/20/2021 7:46 AM TRUANT OFFICER Oxygen Saturation 98% 11/28/2024 11:22 AM TRUANT OFFICER Inhaled Oxygen Concentration - - Weight 82.6 kg (182 lb) 11/28/2024 11:22 AM TRUANT OFFICER Height 170.2 cm (5' 7 ) 11/28/2024 11:22 AM TRUANT OFFICER Body Mass Index 28.51 11/28/2024 11:22 AM TRUANT OFFICER Plan of Treatment Not on file Insurance MEDICARE [facility] MEDICARE A[employer] Care Teams Agency Sales Management Assistant Relationship Specialty Start Date End Date Wilver Maldonado DO PCP - General Internal Medicine 07/12/23
--- OUTSIDE RECORDS SUMMARY | 2025-02-27 12:25 | XMS_ITS | Clinical Summary ---
Author Organization [facility] [place] [facility] [place] Address [address] [place] [address] Care Team Providers Care Passenger Booking Clerk Name Role Phone Wilver Maldonado DO Primary Care Provider [phone] Allergies Active Allergy Reactions Criticality Noted Date [...] 1 tablet (50 mcg total) by mouth production inspector before breakfast Active thiamine (VITAMIN B-1) 100 [...] Description 12/03/2024 Telephone [facility] [address] [facility] [address], [place] [address] Tye Kirby III, MD Scheduling Appointments 12/01/2024 Telephone [facility] Cardiology [address] [facility] [address] [place] [address] Lou Kent NP from Last 3 [...] on file 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 Gender Identity Not on file Sexual Orientation Not on file Obstetrics History Last Filed Vital Signs Vital Sign Reading Time Taken Comments Blood Pressure 96/60 11/28/2024 11:22 AM SECURITY OPERATIONS CENTER ANALYST Pulse 90 11/28/2024 11:22 AM SECURITY OPERATIONS CENTER ANALYST Temperature - - Respiratory Rate 12 01/20/2021 7:46 AM SECURITY OPERATIONS CENTER ANALYST Oxygen Saturation 98% 11/28/2024 11:22 AM SECURITY OPERATIONS CENTER ANALYST Inhaled Oxygen Concentration - - Weight 82.6 kg (182 lb) 11/28/2024 11:22 AM SECURITY OPERATIONS CENTER ANALYST Height 170.2 cm (5' 7 ) 11/28/2024 11:22 AM SECURITY OPERATIONS CENTER ANALYST Body Mass Index 28.51 11/28/2024 11:22 AM SECURITY OPERATIONS CENTER ANALYST Plan of Treatment Health Maintenance Due Date Last Done Comments Depression Screening 1945 Fall Risk Assessment 1945 Hepatitis C Screening 1945 DTaP/Tdap/Td Vaccine (1 - Tdap) 1957 Hepatitis B Screening 1964 Zoster Vaccine (1 of 2) 1996 Well Visit 65+ 2011 Pneumococcal vaccine 65+ (2 of 2 - PPSV23) 12/26/2017 12/26/2016 Influenza Vaccine (Season Ended) 2025 12/26/19 17, 12/25/2015 Insurance [facility] [place] [id number] MEDICARE [facility] Member Subscriber Plan / Payer ( fective 2016-Present) Name:Murphy Arreaga Relation to Subscriber:Self Name:Murphy Arreaga Payer ID:[id number] Group ID:[id number] Type:COMMERCIAL Address: [facility] [id number] [place] [phone] Care Teams Passenger Booking Clerk Relationship Specialty Start Date End Date Wilver Maldonado DO PCP - General Internal Medicine 07/12/23
--- OUTSIDE RECORDS SUMMARY | 2025-02-27 12:25 | XMS_ITS | Clinical Summary ---
Author Organization [facility] Address [address] [place] [address] Phone Care Team Providers Care Correctional Manager Name Role Phone Wilver Maldonado DO [...] STL ABSTRACTION Provider, Abstract 12/17/2024 Orders Only [facility] Oncology and Hematology - [address] [place] [address] Sravan Le MD 12/15/2024 Orders Only [facility]cology and Hematology - [place] [address] [place] [address] Sravan Le MD 12/12/2024 Orders Only [facility] Oncology and Hematology - [place] [address] [place] [address] Sravan Le MD 12/10/2024 External Device Data [...] on file Legal Sex Male 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 Gender Identity Not on file Sexual Orientation [...] Description 04/14/2025 3:45 PM CDT Office Visit [facility] Oncology and Hematology - [place] [address] [facility] [address] [place] [address] Sravan Le MD [address] [facility] [address] [place] [address] Health Maintenance Due Date Last [...] TESTOSTERONE FREE Routine 12/10/2024 2:2 8 PM UTILITIES ESTIMATOR AND DRAFTER COMPREHENSIVE METABOLIC PANEL Routine 12/10/2024 1:56 PM UTILITIES ESTIMATOR AND DRAFTER CBC WITH DIFFERENTIAL Routine 12/10/2024 10:31 AM UTILITIES ESTIMATOR AND DRAFTER from Last 3 Months Results * TESTOSTERONE FREE (12/10/2024 2:28 PM UTILITIES ESTIMATOR AND DRAFTER) Blood Sravan Le MD CHEMISTRY ORDERABLES Final Resu lt * COMPREHENSIVE METABOLIC PANEL (12/10/2024 1:56 PM UTILITIES ESTIMATOR AND DRAFTER) Blood Sravan Le MD CHEMISTRY ORDERABLES Final Resu lt * CBC WITH DIFFERENTIAL (12/10/2024 10:31 AM UTILITIES ESTIMATOR AND DRAFTER) Blood Sravan Le MD HEMATOLOGY ORDERABLES Final Res ult from Last 3 Months Insurance MEDICARE PART A AND B [facility] [address] [place] [id number] MEDICARE PART A AND B [facility] [id number] [place] [address] Care Teams Correctional Manager Relationship Specialty Start Date End Date Wilver Maldonado DO [address] [facility] [address] [place] [id number] PCP - General Internal Medicine 07/02/23
--- OUTSIDE RECORDS SUMMARY | 2025-02-27 12:25 | XMS_ITS ---
Author Name Adam Freire Address [address] [place] [address] Phone [phone] [employer] Address [address] [place] [address] Phone [phone] Care Team Providers Care Motors And Generators Inspector Name Role Phone Adam Freire Unavailable [phone] Functional Status No Results Mental Status No [...]
[2025-02-27 12:35] LABS: Basophils Absolute Auto 0.1 K/mm3 (0.0-0.1); Basophils Percent Auto 0.7 % (0.2-1.2); Eosinophils Absolute Auto 0.2 K/mm3 (0-0.3); Hematocrit 27.5 % (42.0-52.0); Hemoglobin 9.2 g/dL (14.0-18.0); Immature Granulocyte Absolute 0.02 K/mm3 (0.00-0.031); Immature Granulocyte Percent A 0.3 % (0-0.5); Lymphocytes Absolute Auto 0.81 K/mm3 (0.9-3.2); Lymphocytes Percent Auto 11.7 % (18.3-44.2); Mean Corpuscular HGB Conc 33.5 g/dl (32-36); Mean Corpuscular Hemoglobin 34.6 pg (26-34); Mean Corpuscular Volume 103.4 fl (80-100); Mean Platelet Volume 10.1 fl (7.4-10.4); Monocytes Absolute Auto 0.4 K/mm3 (0.1-0.6); Monocytes Percent Auto 5.2 % (2.6-8.5); Neutrophils Absolute Auto 5.5 K/mm3 (1.3-6.7); Neutrophils Percent Auto 79.1 % (45.5-73.1); Platelet Count Result 214 k/mm3 (150-375); Red Blood Count 2.66 M/mm3 (4.6-6.20); Red Cell Distribution Width 15.4 % (11.5-14.5)
[2025-02-27 12:47] LABS: Alanine Aminotransferase 23 U/L (6-50); Albumin Level 2.8 g/dL (3.5-5.1); Alkaline Phosphatase 278 U/L (38-126); Anion Gap 10 mmol/L (4-12); Aspartate Amino Transferase 45 U/L (17-59); Bilirubin,Total 2.8 mg/dL (0.2-1.3); Blood Urea Nitrogen 49 mg/dL (9-20); Calcium 8.2 mg/dL (8.4-10.2); Carbon Dioxide 25 mmol/L (22-30); Chloride 97 mmol/L (98-107); Estimated CRCL calculation 23 ml/min; Estimated Glomerular Filt Rate 22; Glucose 112 mg/dL (65-110); Lipase 58 U/L (23-300); Partial Thromboplastin Time 63.1 Seconds (22.3-36.8); Potassium 4.2 mmol/L (3.4-5.0); Prothrombin Time 65.4 Seconds (11.1-14.7); Sodium 132 mmol/L (137-145)
[2025-02-27 12:51] LABS: INR 7.6
[2025-02-27 12:59] LABS: Troponin I < 0.012 ng/mL (0.000-0.034)
[2025-02-27 14:10] LABS: Ammonia 42 umol/L (9-30)
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
--- NOTE | 2025-02-27 15:31 | ECG_ITS ---
Test Date: 2025-02-27 15:34:22 Measurements Intervals [place] Rate: 87 P: 0 DE: 0 QRS: 158 QRSD: 157 T: -34 QT: 433 QTc: 524 Interpretive Statements ATRIAL FIBRILLATION RIGHT BUNDLE BRANCH BLOCK LEFT POSTERIOR FASCICULAR BLOCK CONSIDER ANTERIOR INFARCT, AGE INDETERMINATE BASELINE ARTIFACT- II, III, AVR, AVF ABNORMAL ECG Compared to ECG 02/27/2025 12:13:12 NO SIGNIFICANT CHANGE Electronically Signed On 02-27-2025 15:43:01 CDT by Inocencio Concepcion D.O.
[2025-02-27] MEDS: FUROSEMIDE INJ 40 MG/4 ML VIAL IV PUSH (15:41)
[2025-02-27 16:21] LABS: Troponin I < 0.012 ng/mL (0.000-0.034)
[2025-02-27 16:25] LABS: Add Urine Microscopic? YES; Appearance Urine Turbid (Clear); Bacteria Urine None Seen /hpf; Bilirubin Urine 1+ (Negative); Blood Urine 1+ (Negative); Glucose Urine UA Negative (Negative); Ketones Urine Negative (Negative); Leukocyte Esterase Ur 2+ LEU/UL (Negative); Need Manual Microscopic Reviewed; Protein Urine 1+ mg/dL (Negative); RBC Urine >100 /hpf (0-2); Specific Grav Ur 1.021 (1.001-1.035); Squamous Epithelial Cell Urine Few /hpf (Few); WBC Urine 21-50 /hpf (0-3)
[2025-02-27 16:26] LABS: Color Urine Brown (Yellow)
[2025-02-27] MEDS: ALBUMIN HUMAN 25% 25 GM/100 ML 100 ML IVPB (16:46)
[2025-02-27] MEDS: PHYTONADIONE 2.5 MG TAB PO (17:20)
[2025-02-27] MEDS: LACTULOSE 20 GM/30 ML UDC PO (17:21)
--- NOTE | 2025-02-27 17:49 | PCRCNOTE ---
Pt ordered on bipap at night . Pt states he will not wear one and does not want machine in room. Pt states he has not wore a bipap for years!
--- NOTE | 2025-02-27 18:24 | ADMGEN ---
This patient, Murphy Contreras, was admitted to IMU Room 202-01. Patient/family oriented to hospital policies and general routines including ID bracelet, bed and alarms, visiting hours, pain management, procedures, bathroom and other care routines, personal items, smoking policy, room service/diet, and visiting hours. Information on how to activate the Rapid Response Team has been discussed. Patient/Family are encouraged to report perceived risks to care and to ask questions if they do not understand what they are told or what they should do. Pt admitted to the unit. Head to toe assessment completed and documented in the chart. General assessment completed and documented. Pt voiced no complaints of pain of general complaints at this time. Personal items in reach. Call light in reach. Bed lock. Will continue to monitor. Azul Thomas RN
[2025-02-27 18:41] LABS: MRSA (PCR) NOT DETECTED (NOT DETECTE)
[2025-02-27] MEDS: VANCOMYCIN 1,500 MG/NS 500 ML 1,500 MG/500 ML BAG 250 MG IVPB (18:54)
[2025-02-27] MEDS: CEFEPIME 1 GM/NS 50 ML 1 GM/50 ML BAG IVPB (18:54)
[2025-02-27 18:55] LABS: Troponin I < 0.012 ng/mL (0.000-0.034)
[2025-02-27] MEDS: BENZONATATE 100 MG CAPSULE PO (21:12)
[2025-02-27] MEDS: guaiFENesin 12 HR 600 MG TABCR PO (21:12)
[2025-02-27] MEDS: AZITHROMYCIN 500 MG/NS 250 ML 500 MG/250 ML BAG 250 MG IVPB (21:18)
[2025-02-27] MEDS: MULTIVITAMINS THERAPEUTIC TAB (*BKC) 1 TABLET PO (22:50)
[2025-02-27] MEDS: PANTOPRAZOLE 40 MG TABLET PO (22:50)
[2025-02-28] VITALS (18 sets, daily range): BP systolic 89–119; BP diastolic 47–68; PULSE 68–96; RESP 18–20; TEMP 36.3–36.9; O2SAT 95–100
[2025-02-28] MEDS: ALBUMIN HUMAN 25% 25 GM/100 ML 100 ML IVPB ×2 (00:06→06:35)
[2025-02-28 04:48] LABS: Creatinine Urine 87.2 mg/dL; Total Protein Urine Random 120 mg/dL; Ur Ttl Prot Creatinine Ratio 1.38 mg/mg (0-0.20)
[2025-02-28 04:53] LABS: Creatinine Urine 87.8 mg/dL; Total Protein Urine Random 120 mg/dL; Urea Random Urine 384 MG/DL
[2025-02-28 04:54] LABS: Sodium Urine Random 68 meq/L
[2025-02-28 04:58] LABS: Eosinophil Urine Rare % (None Seen)
[2025-02-28 04:59] LABS: Urine Eos QC 2nd Tech Confirmed
[2025-02-28 05:28] LABS: Basophils Absolute Auto 0.1 K/mm3 (0.0-0.1); Basophils Percent Auto 0.9 % (0.2-1.2); Eosinophils Absolute Auto 0.3 K/mm3 (0-0.3); Eosinophils Percent Auto 4.9 % (0-4.4); Hematocrit 25.1 % (42.0-52.0); Hemoglobin 8.5 g/dL (14.0-18.0); Immature Granulocyte Absolute 0.01 K/mm3 (0.00-0.031); Immature Granulocyte Percent A 0.2 % (0-0.5); Lymphocytes Absolute Auto 0.58 K/mm3 (0.9-3.2); Mean Corpuscular HGB Conc 33.9 g/dl (32-36); Mean Corpuscular Hemoglobin 34.7 pg (26-34); Mean Corpuscular Volume 102.4 fl (80-100); Mean Platelet Volume 9.7 fl (7.4-10.4); Monocytes Absolute Auto 0.3 K/mm3 (0.1-0.6); Monocytes Percent Auto 4.9 % (2.6-8.5); Neutrophils Absolute Auto 4.1 K/mm3 (1.3-6.7); Neutrophils Percent Auto 78.1 % (45.5-73.1); Platelet Count Result 166 k/mm3 (150-375); Red Blood Count 2.45 M/mm3 (4.6-6.20); Red Cell Distribution Width 15.3 % (11.5-14.5); White Blood Count 5.3 K/mm3 (4.5-10.0)
[2025-02-28 05:38] LABS: Ammonia < 9 umol/L (9-30)
[2025-02-28 05:39] LABS: Prothrombin Time 50.7 Seconds (11.1-14.7)
[2025-02-28 05:40] LABS: Alanine Aminotransferase 19 U/L (6-50); Albumin Level 2.8 g/dL (3.5-5.1); Alkaline Phosphatase 221 U/L (38-126); Anion Gap 8 mmol/L (4-12); Aspartate Amino Transferase 41 U/L (17-59); Bilirubin,Total 3.1 mg/dL (0.2-1.3); Blood Urea Nitrogen 47 mg/dL (9-20); CRP 6.3 mg/dL (<1.0); Calcium 8.1 mg/dL (8.4-10.2); Carbon Dioxide 26 mmol/L (22-30); Chloride 99 mmol/L (98-107); Creatine Kinase < 20 U/L (55-170); Estimated CRCL calculation 24 ml/min; Estimated Glomerular Filt Rate 24; Glucose 92 mg/dL (65-110); Partial Thromboplastin Time 63.4 Seconds (22.3-36.8); Sodium 133 mmol/L (137-145)
[2025-02-28 05:43] LABS: Vancomycin Random 11.6 ug/mL (10-20)
[2025-02-28 05:44] LABS: INR 5.5
[2025-02-28 05:54] LABS: Erythrocyte Sedimentation Rate 25 mm/hr (0-20)
[2025-02-28] MEDS: CEFEPIME 1 GM/NS 50 ML 1 GM/50 ML BAG IVPB ×2 (06:05→17:42)
[2025-02-28] MEDS: LEVOTHYROXINE SODIUM 75 MCG TABLET PO (06:35)
[2025-02-28] MEDS: METOPROLOL SUCCINATE EXT REL 50 MG TABCR PO (08:16)
[2025-02-28] MEDS: CHOLECALCIFEROL 5,000 UNITS TABLET 5000 UNITS BY MOUTH (08:16)
[2025-02-28] MEDS: FOLIC ACID 1 MG TABLET PO (08:16)
[2025-02-28] MEDS: TAMSULOSIN HCL 0.4 MG CAPSULE PO (08:16)
[2025-02-28] MEDS: MAGNESIUM OXIDE 400 MG TABLET PO ×2 (08:16→17:42)
--- NOTE | 2025-02-28 09:31 | P.PNIM_ITS ---
Progress Note: A&P Assessment and Plan (1) Volume overload: Qualifiers: Hypervolemia type: unspecified Qualified Code(s): E87.70 - Fluid overload, unspecified Code(s): E87.70 - Fluid overload, unspecified Status: Acute Assessment and Plan: * Chest x-ray showing bilateral small pleural effusions right greater than left with opacities in the right lung base which could represent pneumonia * Abdomen/pelvis CT shown anasarca with very small left and small to moderate- sized right pleural effusion, moderate amount of ascites and prominent body wall and less severe mesenteric and retroperitoneal edema, increased mild ground-glass opacity in the lingula which could represent pneumonia, a few tiny nonobstructive renal stones without hydronephrosis or obstruction, infrarenal IVC filter in place * Patient was given IV Lasix and albumin while in the ED * Recently had a paracentesis on 02/16/2025 yielding 2650 mL of ascites fluid * Will likely need another paracentesis however patient has supratherapeutic INR * GI and Nephrology consulted, their expertise is appreciated * Last echocardiogram reviewed from 02/14/2025 showing normal LV systolic function with an estimated EF of 65-70%, left atrium severely enlarged, right atrium moderately enlarged, moderate pulmonary hypertension with estimated pul monary arterial systolic pressure of 49 mmHg (2) Ascites: Qualifiers: Ascites type: other type Qualified Code(s): R18.8 - Other ascites Code(s): R18.8 - Other ascites Status: Acute Assessment and Plan: See above plan of care (3) Cirrhosis: Qualifiers: Ascites presence: with ascites Hepatic cirrhosis type: unspecified hepatic cirrhosis Qualified Code(s): K74.60 - Unspecified cirrhosis of liver; R18.8 - Other ascites Code(s): K74.60 - Unspecified cirrhosis of liver Status: Acute Assessment and Plan: * Total bili initially 2.8 now up to 3.1 * Alkaline phosphate 278> 221 * Ammonia 42 on admission, now down to less than 9 * UA showed 1+ urine bilirubin * GI following and recommending Midodrine and Octreotide infusion for hepatorenal syndrome * Continue Albumin per GI recommendation * Unable to get a true MELD score due to supratherapeutic INR * Plan for paracentesis, however will need to correct INR 1st (4) Supratherapeutic INR: Code(s): R79.1 - Abnormal coagulation profile Status: Acute Assessment and Plan: * Initial INR 7.6 now down to 5.5 * Xarelto stopped and he will need therapeutic Lovenox per GI recommendation as the only option for anticoagulation considering his liver failure. * Will give vitamin K today and repeat INR around 3:00 p.m. today * Continue to trend (5) Acute kidney injury: Code(s): N17.9 - Acute kidney failure, unspecified Status: Acute Assessment and Plan: * Initial creatinine 2.8 to now down to 2.63 * Initial EGFR 22, now up to 24 * Baseline creatinine appears to be 1.13-1.17, EGFR 60 to greater than 60 * Abdomen/pelvis CT showed a few tiny nonobstructing renal stones without hydronephrosis * Protein/creatinine ratio 1.38 * Rare urine eosinophils noted on UA * Nephrology consulted * Continue to trend (6) Pneumonia: Qualifiers: Laterality: unspecified laterality Lung location: unspecified part of lung Pneumonia type: due to unspecified organism Qualified Code(s): J18.9 - Pneumonia, unspecified organism Code(s): J18.9 - Pneumonia, unspecified organism Status: Suspected Assessment and Plan: * Chest x-ray showing small bilateral small pleural effusion right greater than left with opacities at the right lung base which could represent pneumonia * Abdomen/pelvis CT showed a increase mild ground-glass opacity in the lingula which could represent pneumonia * Patient was started on cefepime, vancomycin, azithromycin * Vancomycin was deescalated due to negative MRSA * Azithromycin was changed to p.o., continue with cefepime (7) Urinary tract infection: Qualifiers: Hematuria presence: without hematuria Urinary tract infection type: acute cystitis Qualified Code(s): N30.00 - Acute cystitis without hematuria Code(s): N39.0 - Urinary tract infection, site not specified Status: Acute Assessment and Plan: * UA shown brown urine color, turbid appearance, 1+ protein, 1+ urine blood, 1+ urine bilirubin, 2+ leukocyte, greater than 100 urine RBC, 21-50 urine WBC, 3- 5 urine casts, rare urine eosinophils. * Urine culture was obtained and pending * Continue cefepime (8) Chronic anemia: Code(s): D64.9 - Anemia, unspecified Status: Chronic Assessment and Plan: Likely secondary to cirrhosis of the liver and chronic kidney disease, chronic * Hemoglobin 8.5, MCV 102.4 * Anemia workup in the past showed normal iron, ferritin, vitamin B12, folate * TSH was elevated to 12.800 on 02/14/2025 * Will recheck TSH, T3, free T4 (9) Hypertension: Qualifiers: Hypertension type: primary hypertension Qualified Code(s): I10 - Essential (primary) hypertension Code(s): I10 - Essential (primary) hypertension Status: Chronic Assessment and Plan: * Blood pressure ranging 104/65 to 110/70 * Patient is not currently on any home medications for hypertension * Continue to trend (10) CHEO (obstructive sleep apnea): Code(s): G47.33 - Obstructive sleep apnea (adult) (pediatric) Status: Chronic Assessment and Plan: * Continue CPAP (11) Atrial fibrillation: Qualifiers: Atrial fibrillation type: paroxysmal Qualified Code(s): I48.0 - Paroxysmal atrial fibrillation Code(s): I48.91 - Unspecified atrial fibrillation Status: Chronic Assessment and Plan: * Patient initially in AFib RVR on arrival to the ED * EKG showing AFib with a rate of 87, QTC 524, right bundle branch block, left posterior fascicular block * Xarelto stopped--Will need therapeutic Lovenox when appropriate as this is the only anticoagulation recommended with liver failure. * Continue metoprolol extended release 50 mg p.o. daily * Continue cardiac monitoring (12) Hypothyroidism: Code(s): E03.9 - Hypothyroidism, unspecified Status: Acute Assessment and Plan: * Continue Synthroid * Will check TSH, T3, free T4 Time Spent With Patient Time with patient: Greater than 35 minutes Subjective Date/time seen: 02/28/25 09:31 Interval history: Interval summary: This is a 79-year-old male with a significant past medical history of cirrhosis, anemia, AFib on chronic anticoagulation, hypothyroidism, hypertension, PE/DVT back in 2016, alcohol abuse who presented to the hospital with increased shortn ess of breath/dyspnea. He was found to be in AFib RVR and hypoxic on room air when EMS picked him up. By the time he got to the hospital he was was 97% on room air He was placed on 2 L nasal cannula in route to the hospital Workup in the hospital included a chest x-ray which showed small bilateral pleural effusions right greater than left with opacities in the right lung base. Abdomen/pelvis CT shown small left and small to moderate-sized right pleural effusion, moderate amount of ascites with prominent body wall and less severe mesenteric and retroperitoneal edema, increased mild ground-glass opacity in the lingula which could represent atelectasis versus pneumonia, a few small nonobstructing renal stones without hydronephrosis or obstruction, infrarenal IVC filter in place. Initial labs showed a normal white blood cell count of 7.0, hemoglobin 9.2, INR was supratherapeutic at 7.6, sodium 132, chloride 97, creatinine 2.82, EGFR 22, blood sugars ranging 92-112, total bili 2.8, alkaline phosphate 278, ammonia 42, troponin negative x2, albumin 2.8. UA was obtained which showed brown colored urine with turbid appearance, 1+ urine protein, 1+ urine blood, 1+ urine bilirubin, 2+ leukocyte, greater than 100 urine RBC, 21-50 urine WBC, 3-5 urine cast, rare urine eosinophils, protein/creatinine ratio 1.38. MRSA was negative. Urine culture was obtained and pending. Patient has had past paracentesis with most recent on 02/16/2025 yielding 2650 mL of ascites fluid. EKG showed atrial fibrillation with a rate of 87, right bundle branch block, left posterior fascicular block, with a QTC of 524. Patient was given 324 mg p.o. aspirin, albumin, Lasix while in the ED. he was then started on cefepime, vancomycin, and azithromycin for pneumonia coverage. Vancomycin was de-escalated due to negative MRSA. Nephrology and GI were consulted. Paracentesis ordered by ED physician. Subjective: Patient denies any SOB at rest, he states he gets SOB with exertion. Currently on room air. He denies any other complaints. Labs and imaging reviewed. Review of Systems Review of Systems: All systems reviewed & are unremarkable except as noted in HPI and below Exam Narrative: General: In no acute distress, well nourished Head: atraumatic, no encephalopathy Eyes: PERRLA, sclera clear ENT: moist mucous membranes, nasal passages clear Neck: supple, no JVD, no adenopathy, trachea midline Cardiac: Normal S1 and S2. No murmur, gallops or friction rubs, peripheral pulses intact. Respiratory: Bilateral crackles in bases, no adventitious lung sounds, currently on room air Gastrointestinal: firm, taunt, non-tender, normoactive bowel sounds. Anasarca present : voiding without difficulty. Extremities: moves all extremities well, 2+ pitting edema BLE Skin: clean, dry, intact. No wounds or lesions. Neuro: Alert and oriented x4, cranial nerves intact, no neuro deficits. Psych: normal mood, normal affect, interactive Objective Data Vital Signs Vital Signs: Vital Signs - 24 hr 02/27/25 12:12 02/27/25 12:28 02/27/25 12:35 Temperature 97.6 F Pulse Rate 83 85 Respiratory Rate 16 Blood Pressure 107/76 Pulse Oximetry 97 98 Oxygen Delivery Room Air Room Air 02/27/25 12:36 02/27/25 14:11 02/27/25 15:41 Temperature Pulse Rate 85 100 84 Respiratory Rate 15 16 14 Blood Pressure 100/70 90/60 L 119/82 Pulse Oximetry 99 98 97 Oxygen Delivery 02/27/25 16:00 02/27/25 16:30 02/27/25 17:00 Temperature Pulse Rate 88 87 88 Respiratory Rate 12 14 15 Blood Pressure 108/74 102/63 102/72 Pulse Oximetry 98 99 98 Oxygen Delivery 02/27/25 17:45 02/27/25 18:41 02/27/25 19:02 Temperature 97.6 F 97.5 F L Pulse Rate 93 90 Respiratory Rate 15 20 Blood Pressure 110/70 103/68 Pulse Oximetry 99 97 97 Oxygen Delivery Room Air 02/27/25 19:55 02/27/25 20:00 02/27/25 21:00 Temperature 97.5 F L Pulse Rate 89 94 Respiratory Rate 20 Blood Pressure 100/63 Pulse Oximetry 99 Oxygen Delivery Room Air 02/27/25 22:00 02/28/25 00:00 02/28/25 00:00 Temperature 97.4 F L Pulse Rate 83 89 Respiratory Rate 18 Blood Pressure 108/55 L Pulse Oximetry 100 Oxygen Delivery Room Air 02/28/25 00:00 02/28/25 02:00 02/28/25 04:00 Temperature 98.1 F Pulse Rate 95 84 91 Respiratory Rate 18 Blood Pressure 104/65 Pulse Oximetry 100 Oxygen Delivery 02/28/25 04:00 02/28/25 04:10 02/28/25 06:00 Temperature Pulse Rate 87 87 Respiratory Rate Blood Pressure Pulse Oximetry Oxygen Delivery Room Air 02/28/25 08:00 02/28/25 08:16 Temperature 98.0 F Pulse Rate 78 94 Respiratory Rate 20 Blood Pressure 108/68 Pulse Oximetry 97 Oxygen Delivery Intake/Output Intake/Output: Intake & Output 02/25/25 02/26/25 02/27/25 02/28/25 23:59 23:59 23:59 23:59 Intake Total 250 540 Output Total 400 Balance 250 140 Meds/Results Medications: Active Medications Generic Name Dose Route Start Last Admin Trade Name Freq PRN Reason Stop Dose Admin Acetaminophen 325 mg 02/27/25 16:47 Acetaminophen 325 Mg Tablet PO Q6H PRN Mild Pain (1-3) or Fever Benzonatate 100 mg 02/27/25 16:47 02/27/25 21:12 Benzonatate 100 Mg Capsule PO 100 mg TID PRN Administration Cough Folic Acid 1 mg 02/28/25 09:00 02/28/25 08:16 Folic Acid 1 Mg Tablet PO 1 mg QAM PABLO Administration Guaifenesin 600 mg 02/27/25 16:47 02/27/25 21:12 Guaifenesin 12 Hr 600 Mg Tabcr PO 600 mg Q12HR PRN Administration Congestion Albumin Human 100 mls @ 60 mls/hr 02/28/25 00:00 02/28/25 06:35 Albutein IVPB 02/28/25 19:39 60 mls/hr Q6H PABLO Administration Cefepime HCl 1 gm in 50 mls @ 100 mls/hr 02/28/25 06:00 02/28/25 06:05 Maxipime 1 Gm/Ns 50 Ml IVPB 100 mls/hr Q12H PABLO Administration Azithromycin 500 mg in 250 mls @ 250 mls/hr 02/28/25 21:00 Zithromax IVPB Q24H PABLO Levothyroxine Sodium 75 mcg 02/28/25 06:30 02/28/25 06:35 Levothyroxine Sodium 75 Mcg Tablet PO 75 mcg DAILY@0630 PABLO Administration Magnesium Oxide 400 mg 02/28/25 09:00 02/28/25 08:16 Magnesium Oxide 400 Mg Tablet PO 400 mg BID PABLO Administration Metoprolol Succinate 50 mg 02/28/25 09:00 02/28/25 08:16 Metoprolol Succinate Ext Rel 50 Mg Tabcr PO 50 mg DAILY PABLO Administration Multivitamins Therapeutic 1 tablet 02/27/25 22:25 02/27/25 22:50 Multivitamins Therapeutic Tab (*Bkc) PO 1 tablet QHS PABLO Administration Pantoprazole Sodium 40 mg 02/27/25 22:25 02/27/25 22:50 Pantoprazole 40 Mg Tablet PO 40 mg QHS PABLO Administration Tamsulosin HCl 0.4 mg 02/28/25 09:00 02/28/25 08:16 Tamsulosin Hcl 0.4 Mg Capsule PO 0.4 mg QAM PABLO Administration Vitamin D 5,000 units 02/28/25 09:00 02/28/25 08:16 Cholecalciferol 5,000 Units Tablet BY MOUTH 5,000 units DAILY PABLO Administration Radiology Results: ITS Impressions Chest X-Ray 02/27/25 13:59 IMPRESSION: 1. No significant interval change in bilateral small pleural effusions, right greater than left with opacities at the right lung base which could represent associated atelectasis and/or pneumonia. Abdomen/Pelvis CT 02/27/25 15:10 IMPRESSION: 1. No significant change in anasarca with very small left and small to moderate- sized right pleural effusions, moderate amount of ascites and prominent body wall and less severe mesenteric and retroperitoneal edema. 2. Increased mild groundglass opacity in the lingula which could represent atelectasis or pneumonia. 3. A few tiny nonobstructing renal stones Multiple calyces of both kidneys with no hydronephrosis and bilateral internal ureteral stents in expected positions. 4. Infrarenal IVC filter. Labs Labs: Laboratory Results - last 24 hr 02/27/25 02/27/25 02/27/25 12:27 13:53 15:47 WBC 7.0 RBC 2.66 L Hgb 9.2 L Hct 27.5 L MCV 103.4 H MCH 34.6 H MCHC 33.5 RDW 15.4 H Plt Count 214 MPV 10.1 Immature Gran % (Auto) 0.3 Neut % (Auto) 79.1 H Lymph % (Auto) 11.7 L Bureau % (Auto) 5.2 Eos % (Auto) 3.0 Baso % (Auto) 0.7 Lymph # (Auto) 0.81 L Bureau # (Auto) 0.4 Eos # (Auto) 0.2 Baso # (Auto) 0.1 Abs Immat Gran (auto) 0.02 Absolute Neuts (auto) 5.5 Absolute Nucleated RBC 0.000 Nucleated RBC % 0.0 ESR PT 65.4 H INR 7.6 H* APTT 63.1 H Sodium 132 L Potassium 4.2 Chloride 97 L Carbon Dioxide 25 Anion Gap 10 BUN 49 H D Creatinine 2.82 H Estim Creat Clear Calc 23 Estimated GFR 22 L Glucose 112 H Calcium 8.2 L Total Bilirubin 2.8 H AST 45 ALT 23 Alkaline Phosphatase 278 H Ammonia 42 H Total Creatine Kinase Troponin I < 0.012 < 0.012 C-Reactive Protein Total Protein 6.0 L Albumin 2.8 L Lipase 58 Urine Color Brown H Urine Appearance Turbid H Urine pH 5.0 Ur Specific [place] 1.021 Urine Protein 1+ H Urine Glucose (UA) Negative Urine Ketones Negative Ur Blood (Man) 1+ H Urine Nitrate Urine Bilirubin 1+ H Urine Urobilinogen 1.0 Add Ur Microanalysis Reviewed Leukocyte Esterase Rfl 2+ H Urine RBC >100 H Urine WBC 21-50 H Ur Squamous Epith Cells Few Urine Bacteria None seen Urine Casts 3-5 Urine Eosinophils U Random Total Protein Ur Random Sodium Ur Random Urea Urine Creatinine Protein/Creat Ratio 2 Nasal MRSA (PCR) Random Vancomycin 02/27/25 02/27/25 02/28/25 17:25 18:06 04:29 WBC RBC Hgb Hct MCV MCH MCHC RDW Plt Count MPV Immature Gran % (Auto) Neut % (Auto) Lymph % (Auto) Bureau % (Auto) Eos % (Auto) Baso % (Auto) Lymph # (Auto) Bureau # (Auto) Eos # (Auto) Baso # (Auto) Abs Immat Gran (auto) Absolute Neuts (auto) Absolute Nucleated RBC Nucleated RBC % ESR PT INR APTT Sodium Potassium Chloride Carbon Dioxide Anion Gap BUN Creatinine Estim Creat Clear Calc Estimated GFR Glucose Calcium Total Bilirubin AST ALT Alkaline Phosphatase Ammonia Total Creatine Kinase Troponin I < 0.012 C-Reactive Protein Total Protein Albumin Lipase Urine Color Urine Appearance Urine pH Ur Specific [place] Urine Protein Urine Glucose (UA) Urine Ketones Ur Blood (Man) Urine Nitrate Urine Bilirubin Urine Urobilinogen Add Ur Microanalysis Leukocyte Esterase Rfl Urine RBC Urine WBC Ur Squamous Epith Cells Urine Bacteria Urine Casts Urine Eosinophils Rare U Random Total Protein 120 Ur Random Sodium Ur Random Urea Urine Creatinine Protein/Creat Ratio 2 Nasal MRSA (PCR) Not detected Random Vancomycin 02/28/25 02/28/25 02/28/25 04:29 04:29 05:21 WBC 5.3 RBC 2.45 L Hgb 8.5 L Hct 25.1 L MCV 102.4 H MCH 34.7 H MCHC 33.9 RDW 15.3 H Plt Count 166 MPV 9.7 Immature Gran % (Auto) 0.2 Neut % (Auto) 78.1 H Lymph % (Auto) 11.0 L Bureau % (Auto) 4.9 Eos % (Auto) 4.9 H Baso % (Auto) 0.9 Lymph # (Auto) 0.58 L Bureau # (Auto) 0.3 Eos # (Auto) 0.3 Baso # (Auto) 0.1 Abs Immat Gran (auto) 0.01 Absolute Neuts (auto) 4.1 Absolute Nucleated RBC 0.000 Nucleated RBC % 0.0 ESR 25 H PT 50.7 H D INR 5.5 H* APTT 63.4 H Sodium 133 L Potassium 4.0 Chloride 99 Carbon Dioxide 26 Anion Gap 8 BUN 47 H Creatinine 2.63 H Estim Creat Clear Calc 24 Estimated GFR 24 L Glucose 92 Calcium 8.1 L Total Bilirubin 3.1 H AST 41 ALT 19 Alkaline Phosphatase 221 H Ammonia < 9 L Total Creatine Kinase < 20 L Troponin I C-Reactive Protein 6.3 H Total Protein 6.0 L Albumin 2.8 L Lipase Urine Color Urine Appearance Urine pH Ur Specific [place] Urine Protein Urine Glucose (UA) Urine Ketones Ur Blood (Man) Urine Nitrate Urine Bilirubin Urine Urobilinogen Add Ur Microanalysis Leukocyte Esterase Rfl Urine RBC Urine WBC Ur Squamous Epith Cells Urine Bacteria Urine Casts Urine Eosinophils U Random Total Protein 120 Ur Random Sodium 68 Ur Random Urea 384 Urine Creatinine 87.2 87.8 Protein/Creat Ratio 2 1.38 H Nasal MRSA (PCR) Random Vancomycin 11.6 Quality VTE Prophylaxis VTE prophylaxis: mechanical ordered
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
[2025-02-28 10:42] LABS: Free T3 4.17 pg/mL (2.45-5.93); Free T4 Free Thyroxine 2.71 ng/dL (0.78-2.19)
[2025-02-28] MEDS: PHYTONADIONE ADULT INJ 10 MG in DEXTROSE 5% IN WATER 50 ML 100 MG IVPB (10:47)
[2025-02-28] MEDS: AZITHROMYCIN 250 MG TABLET 500 MG PO (10:47)
[2025-02-28 10:59] LABS: Total Triiodothyronine (T3) 0.97 NG/ML (0.97-1.69)
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
[2025-02-28] MEDS: MIDODRINE HCL 10 MG TABLET PO ×2 (12:10→17:42)
[2025-02-28] MEDS: OCTREOTIDE ACETATE 500 MCG in SODIUM CHLORIDE 0.9% IV 99 ML 10 MCG IV CONT ×2 (12:11→21:49)
[2025-02-28] MEDS: OCTREOTIDE ACETATE 50 MCG/ML VIAL IV PUSH (12:11)
[2025-02-28] MEDS: ALBUMIN HUMAN 25% 12.5 GM/50ML 50 ML IVPB ×2 (14:18→21:58)
[2025-02-28] MEDS: BUMETANIDE INJ 1 MG/4 ML VIAL IV PUSH ×2 (14:18→21:58)
[2025-02-28 15:18] LABS: INR 4.5; Prothrombin Time 43.5 Seconds (11.1-14.7)
[2025-02-28] MEDS: MULTIVITAMINS THERAPEUTIC TAB (*BKC) 1 TABLET PO (20:52)
[2025-03-01] VITALS (17 sets, daily range): BP systolic 86–112; BP diastolic 51–62; PULSE 65–92; RESP 16–20; TEMP 36.6–37.1; O2SAT 97–98
[2025-03-01 05:30] LABS: Basophils Absolute Auto 0.1 K/mm3 (0.0-0.1); Eosinophils Absolute Auto 0.4 K/mm3 (0-0.3); Eosinophils Percent Auto 6.1 % (0-4.4); Hematocrit 24.6 % (42.0-52.0); Hemoglobin 8.3 g/dL (14.0-18.0); Immature Granulocyte Absolute 0.03 K/mm3 (0.00-0.031); Immature Granulocyte Percent A 0.4 % (0-0.5); Lymphocytes Absolute Auto 0.91 K/mm3 (0.9-3.2); Lymphocytes Percent Auto 13.2 % (18.3-44.2); Mean Corpuscular HGB Conc 33.7 g/dl (32-36); Mean Corpuscular Hemoglobin 34.4 pg (26-34); Mean Corpuscular Volume 102.1 fl (80-100); Monocytes Absolute Auto 0.4 K/mm3 (0.1-0.6); Monocytes Percent Auto 6.1 % (2.6-8.5); Neutrophils Percent Auto 73.2 % (45.5-73.1); Platelet Count Result 159 k/mm3 (150-375); Red Blood Count 2.41 M/mm3 (4.6-6.20); Red Cell Distribution Width 15.7 % (11.5-14.5); White Blood Count 6.9 K/mm3 (4.5-10.0)
[2025-03-01 05:40] LABS: Alanine Aminotransferase 20 U/L (6-50); Albumin Level 2.7 g/dL (3.5-5.1); Alkaline Phosphatase 196 U/L (38-126); Anion Gap 11 mmol/L (4-12); Aspartate Amino Transferase 47 U/L (17-59); Bilirubin,Total 2.4 mg/dL (0.2-1.3); Blood Urea Nitrogen 48 mg/dL (9-20); Carbon Dioxide 23 mmol/L (22-30); Chloride 99 mmol/L (98-107); Estimated CRCL calculation 21 ml/min; Estimated Glomerular Filt Rate 21; Glucose 134 mg/dL (65-110); Phosphorus 4.9 mg/dL (2.5-4.5); Potassium 4.1 mmol/L (3.4-5.0); Sodium 133 mmol/L (137-145)
[2025-03-01] MEDS: BUMETANIDE INJ 1 MG/4 ML VIAL IV PUSH (05:50)
[2025-03-01] MEDS: CEFEPIME 1 GM/NS 50 ML 1 GM/50 ML BAG IVPB ×2 (05:56→16:59)
[2025-03-01] MEDS: LEVOTHYROXINE SODIUM 75 MCG TABLET PO (05:56)
[2025-03-01] MEDS: ALBUMIN HUMAN 25% 12.5 GM/50ML 50 ML IVPB ×3 (06:25→20:35)
[2025-03-01] MEDS: OCTREOTIDE ACETATE 500 MCG in SODIUM CHLORIDE 0.9% IV 99 ML 10 MCG IV CONT ×2 (07:24→16:58)
--- NOTE | 2025-03-01 08:09 | P.PNIM_ITS ---
Progress Note: A&P Assessment and Plan (1) Volume overload: Qualifiers: Hypervolemia type: unspecified Qualified Code(s): E87.70 - Fluid overload, unspecified Code(s): E87.70 - Fluid overload, unspecified Status: Acute Assessment and Plan: * Chest x-ray showing bilateral small pleural effusions right greater than left with opacities in the right lung base which could represent pneumonia * Abdomen/pelvis CT shown anasarca with very small left and small to moderate- sized right pleural effusion, moderate amount of ascites and prominent body wall and less severe mesenteric and retroperitoneal edema, increased mild ground-glass opacity in the lingula which could represent pneumonia, a few tiny nonobstructive renal stones without hydronephrosis or obstruction, infrarenal IVC filter in place * Patient was given IV Lasix and albumin while in the ED * Recently had a paracentesis on 02/16/2025 yielding 2650 mL of ascites fluid * Will likely need another paracentesis however patient has supratherapeutic INR * GI and Nephrology consulted, their expertise is appreciated * Last echocardiogram reviewed from 02/14/2025 showing normal LV systolic function with an estimated EF of 65-70%, left atrium severely enlarged, right atrium moderately enlarged, moderate pulmonary hypertension with estimated pul monary arterial systolic pressure of 49 mmHg * Currently holding Bumex due to low blood pressure and worsening renal function * Consider paracentesis once INR stabilize (2) Ascites: Qualifiers: Ascites type: other type Qualified Code(s): R18.8 - Other ascites Code(s): R18.8 - Other ascites Status: Acute Assessment and Plan: See above plan of care (3) Cirrhosis: Qualifiers: Ascites presence: with ascites Hepatic cirrhosis type: unspecified hepatic cirrhosis Qualified Code(s): K74.60 - Unspecified cirrhosis of liver; R18.8 - Other ascites Code(s): K74.60 - Unspecified cirrhosis of liver Status: Acute Assessment and Plan: * Total bili initially 2.8 now up to 3.1 * Alkaline phosphate 278> 221 * Ammonia 42 on admission, now down to less than 9 * UA showed 1+ urine bilirubin * GI following and recommending Midodrine and Octreotide infusion for hepatorenal syndrome * Continue Albumin per GI recommendation * Unable to get a true MELD score due to supratherapeutic INR * Plan for paracentesis, however will need to correct INR 1st (4) Supratherapeutic INR: Code(s): R79.1 - Abnormal coagulation profile Status: Acute Assessment and Plan: * Initial INR 7.6 now down to 5.5 * Xarelto stopped and he will need therapeutic Lovenox per GI recommendation as the only option for anticoagulation considering his liver failure. * Will give vitamin K today and repeat INR * Continue to trend (5) Acute kidney injury: Code(s): N17.9 - Acute kidney failure, unspecified Status: Acute Assessment and Plan: * Initial creatinine 2.8 to now down to 2.63 * Initial EGFR 22, now up to 24 * Baseline creatinine appears to be 1.13-1.17, EGFR 60 to greater than 60 * Abdomen/pelvis CT showed a few tiny nonobstructing renal stones without hydronephrosis * Protein/creatinine ratio 1.38 * Rare urine eosinophils noted on UA * Nephrology consulted * Continue to trend (6) Pneumonia: Qualifiers: Laterality: unspecified laterality Lung location: unspecified part of lung Pneumonia type: due to unspecified organism Qualified Code(s): J18.9 - Pneumonia, unspecified organism Code(s): J18.9 - Pneumonia, unspecified organism Status: Suspected Assessment and Plan: * Chest x-ray showing small bilateral small pleural effusion right greater than left with opacities at the right lung base which could represent pneumonia * Abdomen/pelvis CT showed a increase mild ground-glass opacity in the lingula which could represent pneumonia * Patient was started on cefepime, vancomycin, azithromycin * Vancomycin was deescalated due to negative MRSA * Azithromycin was changed to p.o., continue with cefepime (7) Urinary tract infection: Qualifiers: Hematuria presence: without hematuria Urinary tract infection type: acute cystitis Qualified Code(s): N30.00 - Acute cystitis without hematuria Code(s): N39.0 - Urinary tract infection, site not specified Status: Acute Assessment and Plan: * UA shown brown urine color, turbid appearance, 1+ protein, 1+ urine blood, 1+ urine bilirubin, 2+ leukocyte, greater than 100 urine RBC, 21-50 urine WBC, 3- 5 urine casts, rare urine eosinophils. * Urine culture was obtained and pending * Continue cefepime (8) Chronic anemia: Code(s): D64.9 - Anemia, unspecified Status: Chronic Assessment and Plan: Likely secondary to cirrhosis of the liver and chronic kidney disease, chronic * Hemoglobin 8.5, MCV 102.4 * Anemia workup in the past showed normal iron, ferritin, vitamin B12, folate * TSH was elevated to 12.800 on 02/14/2025 * Will recheck TSH, T3, free T4 (9) Hypertension: Qualifiers: Hypertension type: primary hypertension Qualified Code(s): I10 - Essential (primary) hypertension Code(s): I10 - Essential (primary) hypertension Status: Chronic Assessment and Plan: * Blood pressure ranging 104/65 to 110/70 * Patient is not currently on any home medications for hypertension * Continue to trend (10) CHEO (obstructive sleep apnea): Code(s): G47.33 - Obstructive sleep apnea (adult) (pediatric) Status: Chronic Assessment and Plan: * Continue CPAP (11) Atrial fibrillation: Qualifiers: Atrial fibrillation type: paroxysmal Qualified Code(s): I48.0 - Parox ysmal atrial fibrillation Code(s): I48.91 - Unspecified atrial fibrillation Status: Chronic Assessment and Plan: * Patient initially in AFib RVR on arrival to the ED * EKG showing AFib with a rate of 87, QTC 524, right bundle branch block, left posterior fascicular block * Xarelto stopped--Will need therapeutic Lovenox when appropriate as this is the only anticoagulation recommended with liver failure. * Continue metoprolol extended release 50 mg p.o. daily * Continue cardiac monitoring (12) Hypothyroidism: Code(s): E03.9 - Hypothyroidism, unspecified Status: Acute Assessment and Plan: * Continue Synthroid * Will check TSH, T3, free T4 Subjective Date/time seen: 03/01/25 08:09 Interval history: Interval summary: This is a 79-year-old male with a significant past medical history of cirrhosis, anemia, AFib on chronic anticoagulation, hypothyroidism, hypertension, PE/DVT back in 2016, alcohol abuse who presented to the hospital with increased shortness of breath/dyspnea. He was found to be in AFib RVR and hypoxic on room air when EMS picked him up. By the time he got to the hospital he was was 97% on room air .He was placed on 2 L nasal cannula in route to the hospital Workup in the hospital included a chest x-ray which showed small bilateral pleural effusions right greater than left with opacities in the right lung base. Abdomen/pelvis CT shown small left and small to moderate-sized right pleural effusion, moderate amount of ascites with prominent body wall and less severe mesenteric and retroperitoneal edema, increased mild ground-glass opacity in the lingula which could represent atelectasis versus pneumonia, a few small nonobstructing renal stones without hydronephrosis or obstruction, infrarenal IVC filter in place. Initial labs showed a normal white blood cell count of 7.0, hemoglobin 9.2, INR was supratherapeutic at 7.6, sodium 132, chloride 97, creatinine 2.82, EGFR 22, blood sugars ranging 92-112, total bili 2.8, alkaline phosphate 278, ammonia 42, troponin negative x2, albumin 2.8. UA was obtained which showed brown colored urine with turbid appearance, 1+ urine protein, 1+ urine blood, 1+ urine bilirubin, 2+ leukocyte, greater than 100 urine RBC, 21-50 urine WBC, 3-5 urine cast, rare urine eosinophils, protein/creatinine ratio 1.38. MRSA was negative. Urine culture was obtained and pending. Patient has had past paracentesis with most recent on 02/16/2025 yielding 2650 mL of ascites fluid. EKG showed atrial fibrillation with a rate of 87, right bundle branch block, left posterior fascicular block, with a QTC of 524. Patient was given 324 mg p.o. aspirin, albumin, Lasix while in the ED. he was then started on cefepime, vancomycin, and azithromycin for pneumonia coverage. Vancomycin was de-escalated due to negative MRSA. Nephrology and GI were consulted. Paracentesis ordered by ED physician. 03/01: Had a long discussion with the patient. Explained to him about the limitation in treating his condition due to liver failure due to alcoholism and subsequent renal failure possibly due to hepatorenal syndrome. Due to abnormal splanchnic blood circulation and decreased oncotic pressure,the fluid resuscitation will not help kidney hydration and indeed will result in third- spacing edema. His blood pressure has been low and currently hold Bumex. Patient midodrine has been increased from 10 mg t.i.d. to 12.5 mg t.i.d. and patient is also on octreotide. Discussed with both Gastroenterology and Nephrol ogwalt who agrees patient has poor prognosis. Review of Systems Review of Systems: All systems reviewed & are unremarkable except as noted in HPI and below Exam Narrative: General: In no acute distress, well nourished Head: atraumatic, no encephalopathy Eyes: PERRLA, sclera clear ENT: moist mucous membranes, nasal passages clear Neck: supple, no JVD, no adenopathy, trachea midline Cardiac: Normal S1 and S2. No murmur, gallops or friction rubs, peripheral pulses intact. Respiratory: Bilateral crackles in bases, no adventitious lung sounds, currently on room air Gastrointestinal: firm, taunt, non-tender, normoactive bowel sounds. Anasarca present : voiding without difficulty. Extremities: moves all extremities well, 2+ pitting edema BLE Skin: clean, dry, intact. No wounds or lesions. Neuro: Alert and oriented x4, cranial nerves intact, no neuro deficits. Psych: normal mood, normal affect, interactive Const: General: comfortable and no acute distress Other: , male, nontoxic appearance, chronically ill-appearing HENMT: Face/Nose/Sinus: Normal nares present Mouth: Yes moist mucous membranes Eyes: General: appearance normal, both eyes and all related structures Sclera: sclerae normal Pupils: Equal, round and reactive pupils present EOM: EOMs intact bilaterally Resp: Effort & Inspection: normal respiratory effort Other: Bibasilar rales. Cardio: Rate: regular rate Rhythm: regular rhythm Other: S1-S2 present without murmur, rub, ectopy GI: Other: rounded abdomen, slight fluid wave with palpation. No tenderness with palpation. Normoactive bowel sounds in all quadrants. : Other: External catheter in place, T colored output. Neuro: Cranial nerves: Yes Equal, round and reactive pupils present Speech: normal speech Motor exam (neuro): 5/5 motor strength present throughout Sensory Exam: normal sensation Other: A&O x4 Extrem: Other: 3+ pitting edema starting at upper thigh s to ankles bilaterally, R>L. Psych: Mental Status: mental status grossly normal Affect: normal affect Other: Good insight and judgment, pleasant. Objective Data Vital Signs Vital Signs: Vital Signs - 24 hr 02/28/25 08:16 02/28/25 10:00 02/28/25 12:00 Temperature 97.6 F Pulse Rate 94 96 89 Respiratory Rate 18 Blood Pressure 119/67 Pulse Oximetry 97 Oxygen Delivery 02/28/25 12:00 02/28/25 12:00 02/28/25 14:00 Temperature Pulse Rate 85 76 Respiratory Rate Blood Pressure Pulse Oximetry 97 Oxygen Delivery Room Air 02/28/25 15:45 02/28/25 16:00 02/28/25 16:00 Temperature 98.5 F Pulse Rate 69 77 Respiratory Rate 20 Blood Pressure 98/57 L Pulse Oximetry 95 95 Oxygen Delivery Room Air 02/28/25 16:53 02/28/25 18:00 02/28/25 19:38 Temperature 98.1 F Pulse Rate 81 68 Respiratory Rate 18 Blood Pressure 89/47 L Pulse Oximetry 96 96 Oxygen Delivery Room Air 02/28/25 20:00 02/28/25 20:50 02/28/25 21:55 Temperature Pulse Rate 80 Respiratory Rate Blood Pressure 110/56 L Pulse Oximetry Oxygen Delivery Room Air 02/28/25 22:00 02/28/25 23:56 03/01/25 00:00 Temperature 98.2 F Pulse Rate 72 71 75 Respiratory Rate 18 Blood Pressure 107/56 L Pulse Oximetry 96 Oxygen Delivery 03/01/25 00:10 03/01/25 02:00 03/01/25 04:00 Temperature Pulse Rate 68 71 Respiratory Rate Blood Pressure Pulse Oximetry Oxygen Delivery Room Air 03/01/25 04:05 03/01/25 04:05 03/01/25 06:00 Temperature 98.0 F Pulse Rate 74 69 Respiratory Rate 20 Blood Pressure 93/52 L Pulse Oximetry 97 Oxygen Delivery Room Air Intake/Output Intake/Output: Intake & Output 02/26/25 02/27/25 02/28/25 03/01/25 23:59 23:59 23:59 23:59 Intake Total 250 975.5 295.8 Output Total 600 300 Balance 250 375.5 -4.2 Meds/Results Medications: Active Medications Generic Name Dose Route Start Last Admin Trade Name Freq PRN Reason Stop Dose Admin Acetaminophen 325 mg 02/27/25 16:47 Acetaminophen 325 Mg Tablet PO Q6H PRN Mild Pain (1-3) or Fever Azithromycin 500 mg 02/28/25 10:00 02/28/25 10:47 Azithromycin 250 Mg Tablet PO 500 mg DAILY PABLO Administration Benzonatate 100 mg 02/27/25 16:47 02/27/25 21:12 Benzonatate 100 Mg Capsule PO 100 mg TID PRN Administration Cough Bumetanide 1 mg 02/28/25 14:00 03/01/25 05:50 Bumetanide Inj 1 Mg/4 Ml Vial IV PUSH 1 mg Q8HR PABLO Administration Folic Acid 1 mg 02/28/25 09:00 02/28/25 08:16 Folic Acid 1 Mg Tablet PO 1 mg QAM PABLO Administration Guaifenesin 600 mg 02/27/25 16:47 02/27/25 21:12 Guaifenesin 12 Hr 600 Mg Tabcr PO 600 mg Q12HR PRN Administration Congestion Cefepime HCl 1 gm in 50 mls @ 100 mls/hr 02/28/25 06:00 03/01/25 05:56 Maxipime 1 Gm/Ns 50 Ml IVPB 100 mls/hr Q12H PABLO Administration Octreotide Acetate 500 mcg/ 100 mls @ 10 mls/hr 02/28/25 11:45 03/01/25 07:24 Sodium Chloride IV CONT 50 mcg/hr .Q10H PABLO 10 mls/hr Administration 50 MCG/HR Albumin Human 50 mls @ 50 mls/hr 02/28/25 14:00 03/01/25 06:25 Albutein IVPB 50 mls/hr Q8HR PABLO Administration Levothyroxine Sodium 75 mcg 02/28/25 06:30 03/01/25 05:56 Levothyroxine Sodium 75 Mcg Tablet PO 75 mcg DAILY@0630 PABLO Administration Magnesium Oxide 400 mg 02/28/25 09:00 02/28/25 17:42 Magnesium Oxide 400 Mg Tablet PO 400 mg BID PABLO Administration Metoprolol Succinate 50 mg 02/28/25 09:00 02/28/25 08:16 Metoprolol Succinate Ext Rel 50 Mg Tabcr PO 50 mg DAILY PABLO Administration Midodrine 10 mg 02/28/25 13:00 02/28/25 17:42 Midodrine Hcl 10 Mg Tablet PO 10 mg TID PABLO Administration Multivitamins Therapeutic 1 tablet 02/27/25 22:25 02/28/25 20:52 Multivitamins Therapeutic Tab (*Bkc) PO 1 tablet QHS PABLO Administration Tamsulosin HCl 0.4 mg 02/28/25 09:00 02/28/25 08:16 Tamsulosin Hcl 0.4 Mg Capsule PO 0.4 mg QAM PABLO Administration Vitamin D 5,000 units 02/28/25 09:00 02/28/25 08:16 Cholecalciferol 5,000 Units Tablet BY MOUTH 5,000 units DAILY PABLO Administration Radiology Results: ITS Impressions Chest X-Ray 02/27/25 13:59 IMPRESSION: 1. No significant interval change in bilateral small pleural effusions, right greater than left with opacities at the right lung base which could represent associated atelectasis and/or pneumonia. Abdomen/Pelvis CT 02/27/25 15:10 IMPRESSION: 1. No significant change in anasarca with very small left and small to moderate- sized right pleural effusions, moderate amount of ascites and prominent body wall and less severe mesenteric and retroperitoneal edema. 2. Increased mild groundglass opacity in the lingula which could represent atelectasis or pneumonia. 3. A few tiny nonobstructing renal stones Multiple calyces of both kidneys with no hydronephrosis and bilateral internal ureteral stents in expected positions. 4. Infrarenal IVC filter. Labs Labs: Laboratory Results - last 24 hr 02/28/25 02/28/25 03/01/25 05:15 14:44 05:25 WBC 6.9 RBC 2.41 L Hgb 8.3 L Hct 24.6 L MCV 102.1 H MCH 34.4 H MCHC 33.7 RDW 15.7 H Plt Count 159 MPV 10.0 Immature Gran % (Auto) 0.4 Neut % (Auto) 73.2 H Lymph % (Auto) 13.2 L Prentiss % (Auto) 6.1 Eos % (Auto) 6.1 H Baso % (Auto) 1.0 Lymph # (Auto) 0.91 Prentiss # (Auto) 0.4 Eos # (Auto) 0.4 H Baso # (Auto) 0.1 Abs Immat Gran (auto) 0.03 Absolute Neuts (auto) 5.0 Absolute Nucleated RBC 0.000 Nucleated RBC % 0.0 PT 43.5 H INR 4.5 Sodium 133 L Potassium 4.1 Chloride 99 Carbon Dioxide 23 Anion Gap 11 BUN 48 H Creatinine 2.95 H Estim Creat Clear Calc 21 Estimated GFR 21 L Glucose 134 H Calcium 8.0 L Phosphorus 4.9 H Magnesium 2.0 Total Bilirubin 2.4 H AST 47 ALT 20 Alkaline Phosphatase 196 H Total Protein 6.0 L Albumin 2.7 L TSH 10.900 H Free T4 2.71 H Free T3 pg/mL 4.17 Total T3 0.97 Quality VTE Prophylaxis VTE prophylaxis: mechanical ordered Hospitalist MIPS Advance Care Plan I have confirmed that the patient's Advanced Care Plan is present, code status is documented, or surrogate decision maker is listed in patient medical record.: Yes Medication Reconciliation I have utilized all available resources to obtain, update and review the patients current medications (includes all prescriptions, OTC, herbals, cannabis, and nutritional supplements).: Yes
[2025-03-01] MEDS: MAGNESIUM OXIDE 400 MG TABLET PO ×2 (08:14→16:58)
[2025-03-01] MEDS: CHOLECALCIFEROL 5,000 UNITS TABLET 5000 UNITS BY MOUTH (08:14)
[2025-03-01] MEDS: TAMSULOSIN HCL 0.4 MG CAPSULE PO (08:14)
[2025-03-01] MEDS: MIDODRINE HCL 10 MG TABLET PO ×3 (08:14→16:58)
[2025-03-01] MEDS: AZITHROMYCIN 250 MG TABLET 500 MG PO (08:14)
[2025-03-01] MEDS: METOPROLOL SUCCINATE EXT REL 50 MG TABCR PO (08:14)
[2025-03-01] MEDS: FOLIC ACID 1 MG TABLET PO (08:14)
--- NOTE | 2025-03-01 10:55 | P.PNNP_ITS ---
Progress Note: A&P Assessment and Plan (1) Acute kidney injury: Code(s): N17.9 - Acute kidney failure, unspecified Status: Acute Assessment and Plan: * trend of creatinine is as noted * had been running ~ 1.1 - 1.5mg/l since 2020 * averaging ~ 1.1 - 1.3mg/dl in 2022 - 2023 * creatinine up to 2.0mg/dl in November 2024 * hospitalized in early January 2025 for LISA with creatinine of 3.6mg/dl secondary to obstructive uropathy -- bilateral ureteric stones with bilateral hydronephrotic changes present and had bilateral ureteral stents placed with creatinine of 1.13mg/dl at discharge * noted creatinine of 1.41mg/dl on 02/03/25 (outpatient labs) * creatinine ~ 2.0mg/dl on discharge in early February 2025 (02/19/25) * admission creatinine 2.82mg/dl * evaluation on previous and this hospitalization noted: * 2+ protein and 3+ blood on UA (due to stents?) * urine eosinophils negative previously; rare on this admission * 1300mg of proteinuria * urine electrolytes prerenal * CT A/P without obstruction but evidence of volume overload * suspect fluctuating/worsening creatinine/renal function is a manifestation of his liver disease/physiology: * decreased effective circulating volume leading to chronic prerenal azotemia worsened by his need for diuretic therapy in an effort to maintain stability his volume status... * beginnings of or transition to hepatorenal syndrome? * follow trend of renal function and UOP (2) Stage 3b chronic kidney disease: Code(s): N18.32 - Chronic kidney disease, stage 3b Status: Chronic Assessment and Plan: * as apparent on last hospitalization * creatinine seems to stabilize around 2ish range * see #1 (3) Volume overload: Qualifiers: Hypervolemia type: unspecified Qualified Code(s): E87.70 - Fluid overload, unspecified Code(s): E87.70 - Fluid overload, unspecified Status: Acute Assessment and Plan: * noted anasarca on admission * due to LISA, CKD, CHF, liver disease or combo of all... * evaluation noted: * Echo noted - EF 65-70%, indeterminate diastolic function, mild-mod aortic insufficiency, and moderate pulmonary HTN * RUQ US showing fatty infiltration of the liver with a possible nodular contour and ascites * coagulopathy noted * hypoalbuminemia noted as well * suspect liver cirrhosis major component with regard to fluid status * consider IV albumin chased by IV diuretics if hemodynamics allow... * plan paracentesis once INR stabilizes (4) Pneumonia: Qualifiers: Laterality: unspecified laterality Lung location: unspecified part of lung Pneumonia type: due to unspecified organism Qualified Code(s): J18.9 - Pneumonia, unspecified organism Code(s): J18.9 - Pneumonia, unspecified organism Status: Suspected Assessment and Plan: * Chest x-ray showing small bilateral small pleural effusion right greater than left with opacities at the right lung base which could represent pneumonia * Abdomen/pelvis CT showed a increase mild ground-glass opacity in the lingula which could represent pneumonia * follow culture data * on antibiotics (5) Cirrhosis: Qualifiers: Ascites presence: with ascites Hepatic cirrhosis type: unspecified hepatic cirrhosis Qualified Code(s): K74.60 - Unspecified cirrhosis of liver; R18.8 - Other ascites Code(s): K74.60 - Unspecified cirrhosis of liver Status: Acute Assessment and Plan: * noted by imaging studies to date * history of heavy alcohol use in the past * also on amiodarone for an extensive period of time * hepatitis panel negative * GI following as well (6) Ascites: Qualifiers: Ascites type: other type Qualified Code(s): R18.8 - Other ascites Code(s): R18.8 - Other ascites Status: Acute Assessment and Plan: * presumably secondary to liver cirrhosis * last paracentesis done on (02/16): * removal of 2650mL of fluid * will likely need repeat paracentesis once INR acceptable (7) Coagulopathy: Code(s): D68.9 - Coagulation defect, unspecified Status: Acute Assessment and Plan: * slow improvement * INR 7.6 on admission * Xarelto on hold * Vitamin K given * follow trend (8) Anemia: Qualifiers: Anemia type: unspecified type Qualified Code(s): D64.9 - Anemia, unspecified Code(s): D64.9 - Anemia, unspecified Status: Chronic Assessment and Plan: * chronic issue * probably due to liver disease, LISA, and CKD along with acute illness * follows with Hem/Onc * evaluation noted: * B12/folate normal by last hospitalization * anemia studies (from Nov 2024) with adequate iron stores * follow trend of H/H (9) Atrial fibrillation: Qualifiers: Atrial fibrillation type: paroxysmal Qualified Code(s): I48.0 - Paroxysmal atrial fibrillation Code(s): I48.91 - Unspecified atrial fibrillation Status: Chronic Assessment and Plan: * rate control strategy * holding xarelto given elevated INR * Echo noted (10) Kidney stones: Code(s): N20.0 - Calculus of kidney Status: Acute Assessment and Plan: * noted history of bilateral ureteric stones with bilateral hydronephrotic changes by CT scan (early January 2025) * s/p cystoscopy, bilateral retrogrades, bilateral ureteroscopy with stone extraction, and bilateral ureteral stent placement (on 01/20/25) by Urology. * imaging this admission showing resolution of the hydronephrosis * will need Urology follow-up regarding stent removal Will continue to follow. L Subjective Date/time seen: 03/01/25 10:55 Interval history: Follow-up for acute kidney injury/acute renal failure on chronic kidney disease. Renal function/creatinine continues to deteriorate despite interventions to date (midodrine, octreotide, IV albumin) and no significant urine output with IV albumin + IV bumex with doses of IV bumex held at times due to hypotension; otherwise, appears in no acute distress at the time of my visit; no acute events overnight or earlier this morning; states that he feels the same. Exam 2 Narrative: General: elderly and chronically ill-appearing male in NAD Heart: IRRR, normal S1 and S2; no rub Lungs: clear anteriorly; decreased at bases Abdomen: soft, nontender, mild distension with + fluid wave, positive bowel sounds Extremities: no cyanosis or clubbing; 2 - 3+ edema Skin: warm and dry Objective Data Vital Signs Vital Signs: Vital Signs Temp Pulse Resp BP Pulse Ox O2 Del Method 03/01/25 10:52 98.8 F 70 18 92/60 L 98 03/01/25 08:14 92 03/01/25 08:00 87 03/01/25 08:00 98 Room Air 03/01/25 08:00 97.9 F 83 16 87/51 L 98 03/01/25 06:00 69 03/01/25 04:05 Room Air 03/01/25 04:05 98.0 F 74 20 93/52 L 97 03/01/25 04:00 71 03/01/25 02:00 68 03/01/25 00:10 Room Air 03/01/25 00:00 75 02/28/25 23:56 98.2 F 71 18 107/56 L 96 02/28/25 22:00 72 02/28/25 21:55 110/56 L 02/28/25 20:50 Room Air 02/28/25 20:00 80 02/28/25 19:38 98.1 F 68 18 89/47 L 96 02/28/25 18:00 81 02/28/25 16:53 96 Room Air 02/28/25 16:00 95 Room Air 02/28/25 16:00 77 02/28/25 15:45 98.5 F 69 20 98/57 L 95 Intake/Output Intake/Output: Intake & Output 02/26/25 02/27/25 02/28/25 03/01/25 23:59 23:59 23:59 23:59 Intake Total 250 975.5 775.8 Output Total 600 300 Balance 250 375.5 475.8 Meds/Results Medications: Active Medications Generic Name Dose Route Start Last Admin Trade Name Freq PRN Reason Stop Dose Admin Acetaminophen 325 mg 02/27/25 16:47 Acetaminophen 325 Mg Tablet PO Q6H PRN Mild Pain (1-3) or Fever Azithromycin 500 mg 02/28/25 10:00 03/01/25 08:14 Azithromycin 250 Mg Tablet PO 500 mg DAILY PABLO Administration Benzonatate 100 mg 02/27/25 16:47 02/27/25 21:12 Benzonatate 100 Mg Capsule PO 100 mg TID PRN Administration Cough Bumetanide 1 mg 02/28/25 14:00 03/01/25 05:50 Bumetanide Inj 1 Mg/4 Ml Vial IV PUSH 1 mg Q8HR PABLO Administration Folic Acid 1 mg 02/28/25 09:00 03/01/25 08:14 Folic Acid 1 Mg Tablet PO 1 mg QAM PABLO Administration Guaifenesin 600 mg 02/27/25 16:47 02/27/25 21:12 Guaifenesin 12 Hr 600 Mg Tabcr PO 600 mg Q12HR PRN Administration Congestion Cefepime HCl 1 gm in 50 mls @ 100 mls/hr 02/28/25 06:00 03/01/25 05:56 Maxipime 1 Gm/Ns 50 Ml IVPB 100 mls/hr Q12H PABLO Administration Octreotide Acetate 500 mcg/ 100 mls @ 10 mls/hr 02/28/25 11:45 03/01/25 07:24 Sodium Chloride IV CONT 50 mcg/hr .Q10H PABLO 10 mls/hr Administration 50 MCG/HR Albumin Human 50 mls @ 50 mls/hr 03/01/25 13:30 03/01/25 13:17 Albutein IVPB 50 mls/hr Q8H PABLO Administration Levothyroxine Sodium 75 mcg 02/28/25 06:30 03/01/25 05:56 Levothyroxine Sodium 75 Mcg Tablet PO 75 mcg DAILY@0630 PABLO Administration Magnesium Oxide 400 mg 02/28/25 09:00 03/01/25 08:14 Magnesium Oxide 400 Mg Tablet PO 400 mg BID PABLO Administration Metoprolol Succinate 50 mg 02/28/25 09:00 03/01/25 08:14 Metoprolol Succinate Ext Rel 50 Mg Tabcr PO 50 mg DAILY PABLO Administration Midodrine 2.5 mg 03/01/25 13:00 03/01/25 13:16 Midodrine Hcl 2.5 Mg Tablet PO 2.5 mg TID PABLO Administration Midodrine 10 mg 03/01/25 13:00 03/01/25 13:16 Midodrine Hcl 10 Mg Tablet PO 10 mg TID PABLO Administration Multivitamins Therapeutic 1 tablet 02/27/25 22:25 02/28/25 20:52 Multivitamins Therapeutic Tab (*Bkc) PO 1 tablet QHS PABLO Administration Tamsulosin HCl 0.4 mg 02/28/25 09:00 03/01/25 08:14 Tamsulosin Hcl 0.4 Mg Capsule PO 0.4 mg QAM PABLO Administration Vitamin D 5,000 units 02/28/25 09:00 03/01/25 08:14 Cholecalciferol 5,000 Units Tablet BY MOUTH 5,000 units DAILY PABLO Administration Radiology Results: ITS Impressions Chest X-Ray 02/27/25 13:59 IMPRESSION: 1. No significant interval change in bilateral small pleural effusions, right greater than left with opacities at the right lung base which could represent associated atelectasis and/or pneumonia. Abdomen/Pelvis CT 02/27/25 15:10 IMPRESSION: 1. No significant change in anasarca with very small left and small to moderate- sized right pleural effusions, moderate amount of ascites and prominent body wall and less severe mesenteric and retroperitoneal edema. 2. Increased mild groundglass opacity in the lingula which could represent atelectasis or pneumonia. 3. A few tiny nonobstructing renal stones Multiple calyces of both kidneys with no hydronephrosis and bilateral internal ureteral stents in expected positions. 4. Infrarenal IVC filter. Labs Labs: Laboratory Tests 03/01/25 05:25 03/01/25 05:25 Calcium 8.0 L Phosphorus 4.9 H Magnesium 2.0 Total Bilirubin 2.4 H AST 47 ALT 20 Alkaline Phosphatase 196 H Total Protein 6.0 L Albumin 2.7 L Microbiology 02/27/25 15:47 Urine Catheterized Urine Culture - Final
--- NOTE | 2025-03-01 11:20 | P.PNGI_ITS ---
Progress Note: A&P Assessment and Plan (1) Ascites: Qualifiers: Ascites type: other type Qualified Code(s): R18.8 - Other ascites Code(s): R18.8 - Other ascites Status: Acute Assessment and Plan: The patient's primary issues were detailed in yesterday's note. He has very advanced cirrhosis with a MELD score of 40, significantly exacerbated by his home use of Xarelto (now discontinued), which is contraindicated in advanced cirrhosis. His worsening creatinine is multifactorial; however, the post-renal component has been resolved with the bilateral ureteral stents placed for obstructive uropathy secondary to kidney stones. Hepatorenal syndrome remains a strong consideration given the appropriate clinical context of cirrhotic ascites. Midodrine was initiated yesterday at 10 mg t.i.d., but the dose will be increased to 12.5 mg t.i.d. today due to his persistently low mean arterial pressure (the goal is to achieve peripheral vasoconstriction to restore central volume and promote kidney perfusion). Octreotide has also been started. Importantly, despite these interventions, his creatinine has worsened from 2.63 to 2.95 mg/dL today, therefore avoiding factors that decrease renal perfusion, such as diuretics, is crucial. However, his overall prognosis is poor. There is no immediate solution for his lower extremity edema, and while paracentesis is needed for the ascites, his significantly elevated INR of 4.5 (target <2.5 for paracentesis) currently precludes this procedure. (2) Cirrhosis: Qualifiers: Hepatic cirrhosis type: unspecified hepatic cirrhosis Ascites presence: with ascites Qualified Code(s): K74.60 - Unspecified cirrhosis of liver; R18.8 - Other ascites Code(s): K74.60 - Unspecified cirrhosis of liver Status: Acute (3) Liver failure: Code(s): K72.90 - Hepatic failure, unspecified without coma Status: Acute (4) Supratherapeutic INR: Code(s): R79.1 - Abnormal coagulation profile Status: Acute Subjective Date/time seen: 03/01/25 11:20 Interval history: The patient feels the same as yesterday. No worsening abdominal pain, Exam Narrative: Abdomen: Tense, fluid with positive, nontender. Extremities: 4+ pitting edema pedal and pretibial. Objective Data Vital Signs Vital Signs: Vital Signs - 24 hr 02/28/25 12:00 02/28/25 12:00 02/28/25 12:00 Temperature 97.6 F Pulse Rate 89 85 Respiratory Rate 18 Blood Pressure 119/67 Pulse Oximetry 97 97 Oxygen Delivery Room Air 02/28/25 14:00 02/28/25 15:45 02/28/25 16:00 Temperature 98.5 F Pulse Rate 76 69 77 Respiratory Rate 20 Blood Pressure 98/57 L Pulse Oximetry 95 Oxygen Delivery 02/28/25 16:00 02/28/25 16:53 02/28/25 18:00 Temperature Pulse Rate 81 Respiratory Rate Blood Pressure Pulse Oximetry 95 96 Oxygen Delivery Room Air Room Air 02/28/25 19:38 02/28/25 20:00 02/28/25 20:50 Temperature 98.1 F Pulse Rate 68 80 Respiratory Rate 18 Blood Pressure 89/47 L Pulse Oximetry 96 Oxygen Delivery Room Air 02/28/25 21:55 02/28/25 22:00 02/28/25 23:56 Temperature 98.2 F Pulse Rate 72 71 Respiratory Rate 18 Blood Pressure 110/56 L 107/56 L Pulse Oximetry 96 Oxygen Delivery 03/01/25 00:00 03/01/25 00:10 03/01/25 02:00 Temperature Pulse Rate 75 68 Respiratory Rate Blood Pressure Pulse Oximetry Oxygen Delivery Room Air 03/01/25 04:00 03/01/25 04:05 03/01/25 04:05 Temperature 98.0 F Pulse Rate 71 74 Respiratory Rate 20 Blood Pressure 93/52 L Pulse Oximetry 97 Oxygen Delivery Room Air 03/01/25 06:00 03/01/25 08:00 03/01/25 08:00 Temperature 97.9 F Pulse Rate 69 83 Respiratory Rate 16 Blood Pressure 87/51 L Pulse Oximetry 98 98 Oxygen Delivery Room Air 03/01/25 08:00 03/01/25 08:14 03/01/25 10:00 Temperature Pulse Rate 87 92 66 Respiratory Rate Blood Pressure Pulse Oximetry Oxygen Delivery Intake/Output Intake/Output: Intake & Output 02/26/25 02/27/25 02/28/25 03/01/25 23:59 23:59 23:59 23:59 Intake Total 250 975.5 535.8 Output Total 600 300 Balance 250 375.5 235.8 Meds/Results Medications: Active Medications Generic Name Dose Route Start Last Admin Trade Name Freq PRN Reason Stop Dose Admin Acetaminophen 325 mg 02/27/25 16:47 Acetaminophen 325 Mg Tablet PO Q6H PRN Mild Pain (1-3) or Fever Azithromycin 500 mg 02/28/25 10:00 03/01/25 08:14 Azithromycin 250 Mg Tablet PO 500 mg DAILY PABLO Administration Benzonatate 100 mg 02/27/25 16:47 02/27/25 21:12 Benzonatate 100 Mg Capsule PO 100 mg TID PRN Administration Cough Bumetanide 1 mg 02/28/25 14:00 03/01/25 05:50 Bumetanide Inj 1 Mg/4 Ml Vial IV PUSH 1 mg Q8HR PABLO Administration Folic Acid 1 mg 02/28/25 09:00 03/01/25 08:14 Folic Acid 1 Mg Tablet PO 1 mg QAM PABLO Administration Guaifenesin 600 mg 02/27/25 16:47 02/27/25 21:12 Guaifenesin 12 Hr 600 Mg Tabcr PO 600 mg Q12HR PRN Administration Congestion Cefepime HCl 1 gm in 50 mls @ 100 mls/hr 02/28/25 06:00 03/01/25 05:56 Maxipime 1 Gm/Ns 50 Ml IVPB 100 mls/hr Q12H PABLO Administration Octreotide Acetate 500 mcg/ 100 mls @ 10 mls/hr 02/28/25 11:45 03/01/25 07:24 Sodium Chloride IV CONT 50 mcg/hr .Q10H PABLO 10 mls/hr Administration 50 MCG/HR Albumin Human 50 mls @ 50 mls/hr 03/01/25 13:30 Albutein IVPB Q8H PABLO Levothyroxine Sodium 75 mcg 02/28/25 06:30 03/01/25 05:56 Levothyroxine Sodium 75 Mcg Tablet PO 75 mcg DAILY@0630 PABLO Administration Magnesium Oxide 400 mg 02/28/25 09:00 03/01/25 08:14 Magnesium Oxide 400 Mg Tablet PO 400 mg BID PABLO Administration Metoprolol Succinate 50 mg 02/28/25 09:00 03/01/25 08:14 Metoprolol Succinate Ext Rel 50 Mg Tabcr PO 50 mg DAILY PABLO Administration Midodrine 2.5 mg 03/01/25 13:00 Midodrine Hcl 2.5 Mg Tablet PO TID PABLO Midodrine 10 mg 03/01/25 13:00 Midodrine Hcl 10 Mg Tablet PO TID [facility] Multivitamins Therapeutic 1 tablet 02/27/25 22:25 02/28/25 20:52 Multivitamins Therapeutic Tab (*Bkc) PO 1 tablet QHS PABLO Administration Tamsulosin HCl 0.4 mg 02/28/25 09:00 03/01/25 08:14 Tamsulosin Hcl 0.4 Mg Capsule PO 0.4 mg QAM PABLO Administration Vitamin D 5,000 units 02/28/25 09:00 03/01/25 08:14 Cholecalciferol 5,000 Units Tablet BY MOUTH 5,000 units DAILY PABLO Administration Radiology Results: ITS Impressions Chest X-Ray 02/27/25 13:59 IMPRESSION: 1. No significant interval change in bilateral small pleural effusions, right greater than left with opacities at the right lung base which could represent associated atelectasis and/or pneumonia. Abdomen/Pelvis CT 02/27/25 15:10 IMPRESSION: 1. No significant change in anasarca with very small left and small to moderate- sized right pleural effusions, moderate amount of ascites and prominent body wall and less severe mesenteric and retroperitoneal edema. 2. Increased mild groundglass opacity in the lingula which could represent atelectasis or pneumonia. 3. A few tiny nonobstructing renal stones Multiple calyces of both kidneys with no hydronephrosis and bilateral internal ureteral stents in expected positions. 4. Infrarenal IVC filter. Labs Labs: Laboratory Results - last 24 hr 02/28/25 03/01/25 14:44 05:25 WBC 6.9 RBC 2.41 L Hgb 8.3 L Hct 24.6 L MCV 102.1 H MCH 34.4 H MCHC 33.7 RDW 15.7 H Plt Count 159 MPV 10.0 Immature Gran % (Auto) 0.4 Neut % (Auto) 73.2 H Lymph % (Auto) 13.2 L Jerome % (Auto) 6.1 Eos % (Auto) 6.1 H Baso % (Auto) 1.0 Lymph # (Auto) 0.91 Jerome # (Auto) 0.4 Eos # (Auto) 0.4 H Baso # (Auto) 0.1 Abs Immat Gran (auto) 0.03 Absolute Neuts (auto) 5.0 Absolute Nucleated RBC 0.000 Nucleated RBC % 0.0 PT 43.5 H INR 4.5 Sodium 133 L Potassium 4.1 Chloride 99 Carbon Dioxide 23 Anion Gap 11 BUN 48 H Creatinine 2.95 H Estim Creat Clear Calc 21 Estimated GFR 21 L Glucose 134 H Calcium 8.0 L Phosphorus 4.9 H Magnesium 2.0 Total Bilirubin 2.4 H AST 47 ALT 20 Alkaline Phosphatase 196 H Total Protein 6.0 L Albumin 2.7 L
[2025-03-01] MEDS: MIDODRINE HCL 2.5 MG TABLET PO ×2 (13:16→16:58)
[2025-03-01 17:01] LABS: Anion Gap 10 mmol/L (4-12); Blood Urea Nitrogen 49 mg/dL (9-20); Calcium 7.9 mg/dL (8.4-10.2); Carbon Dioxide 23 mmol/L (22-30); Chloride 98 mmol/L (98-107); Estimated CRCL calculation 20 ml/min; Estimated Glomerular Filt Rate 20; Glucose 118 mg/dL (65-110); Potassium 4.1 mmol/L (3.4-5.0); Sodium 131 mmol/L (137-145)
[2025-03-01 17:03] LABS: INR 2.9; Prothrombin Time 30.8 Seconds (11.1-14.7)
[2025-03-01] MEDS: MULTIVITAMINS THERAPEUTIC TAB (*BKC) 1 TABLET PO (20:30)
[2025-03-02] VITALS (17 sets, daily range): BP systolic 92–134; BP diastolic 51–64; PULSE 61–86; RESP 16–18; TEMP 36.3–36.7; O2SAT 95–99
[2025-03-02] MEDS: OCTREOTIDE ACETATE 500 MCG in SODIUM CHLORIDE 0.9% IV 99 ML 10 MCG IV CONT ×3 (02:35→21:00)
[2025-03-02 04:38] LABS: Basophils Absolute Auto 0.1 K/mm3 (0.0-0.1); Basophils Percent Auto 0.9 % (0.2-1.2); Eosinophils Absolute Auto 0.4 K/mm3 (0-0.3); Eosinophils Percent Auto 5.1 % (0-4.4); Hematocrit 25.2 % (42.0-52.0); Hemoglobin 8.5 g/dL (14.0-18.0); Immature Granulocyte Absolute 0.04 K/mm3 (0.00-0.031); Immature Granulocyte Percent A 0.5 % (0-0.5); Lymphocytes Absolute Auto 1.19 K/mm3 (0.9-3.2); Lymphocytes Percent Auto 14.9 % (18.3-44.2); Mean Corpuscular HGB Conc 33.7 g/dl (32-36); Mean Corpuscular Hemoglobin 34.6 pg (26-34); Mean Corpuscular Volume 102.4 fl (80-100); Mean Platelet Volume 10.2 fl (7.4-10.4); Monocytes Absolute Auto 0.6 K/mm3 (0.1-0.6); Monocytes Percent Auto 6.9 % (2.6-8.5); Neutrophils Absolute Auto 5.7 K/mm3 (1.3-6.7); Neutrophils Percent Auto 71.7 % (45.5-73.1); Platelet Count Result 175 k/mm3 (150-375); Red Blood Count 2.46 M/mm3 (4.6-6.20); Red Cell Distribution Width 15.6 % (11.5-14.5)
[2025-03-02 04:53] LABS: INR 2.6; Prothrombin Time 28.4 Seconds (11.1-14.7)
[2025-03-02 04:56] LABS: Alanine Aminotransferase 19 U/L (6-50); Albumin Level 2.8 g/dL (3.5-5.1); Alkaline Phosphatase 203 U/L (38-126); Anion Gap 11 mmol/L (4-12); Aspartate Amino Transferase 42 U/L (17-59); Bilirubin,Total 2.1 mg/dL (0.2-1.3); Blood Urea Nitrogen 48 mg/dL (9-20); Calcium 7.8 mg/dL (8.4-10.2); Carbon Dioxide 21 mmol/L (22-30); Chloride 99 mmol/L (98-107); Estimated CRCL calculation 19 ml/min; Estimated Glomerular Filt Rate 19; Glucose 129 mg/dL (65-110); Phosphorus 4.7 mg/dL (2.5-4.5); Sodium 131 mmol/L (137-145)
[2025-03-02] MEDS: CEFEPIME 1 GM/NS 50 ML 1 GM/50 ML BAG IVPB ×2 (05:46→18:06)
[2025-03-02] MEDS: LEVOTHYROXINE SODIUM 75 MCG TABLET PO (05:49)
[2025-03-02] MEDS: ALBUMIN HUMAN 25% 12.5 GM/50ML 50 ML IVPB ×3 (06:16→21:00)
[2025-03-02] MEDS: MAGNESIUM OXIDE 400 MG TABLET PO ×2 (09:00→14:45)
[2025-03-02] MEDS: MIDODRINE HCL 10 MG TABLET PO ×3 (09:00→18:06)
[2025-03-02] MEDS: MIDODRINE HCL 2.5 MG TABLET PO ×3 (09:00→18:06)
[2025-03-02] MEDS: METOPROLOL SUCCINATE EXT REL 50 MG TABCR PO (09:00)
[2025-03-02] MEDS: FOLIC ACID 1 MG TABLET PO (09:00)
[2025-03-02] MEDS: CHOLECALCIFEROL 5,000 UNITS TABLET 5000 UNITS BY MOUTH (09:00)
[2025-03-02] MEDS: AZITHROMYCIN 250 MG TABLET 500 MG PO (09:01)
[2025-03-02] MEDS: TAMSULOSIN HCL 0.4 MG CAPSULE PO (09:01)
--- NOTE | 2025-03-02 10:16 | P.PNNP_ITS ---
Progress Note: A&P Assessment and Plan (1) Acute kidney injury: Code(s): N17.9 - Acute kidney failure, unspecified Status: Acute Assessment and Plan: * trend of creatinine is as noted * had been running ~ 1.1 - 1.5mg/l since 2020 * averaging ~ 1.1 - 1.3mg/dl in 2022 - 2023 * creatinine up to 2.0mg/dl in November 2024 * hospitalized in early January 2025 for LISA with creatinine of 3.6mg/dl secondary to obstructive uropathy -- bilateral ureteric stones with bilateral hydronephrotic changes present and had bilateral ureteral stents placed with creatinine of 1.13mg/dl at discharge * noted creatinine of 1.41mg/dl on 02/03/25 (outpatient labs) * creatinine ~ 2.0mg/dl on discharge in early February 2025 (02/19/25) * admission creatinine 2.82mg/dl * evaluation on previous and this hospitalization noted: * 2+ protein and 3+ blood on UA (due to stents?) * urine eosinophils negative previously; rare on this admission * 1300mg of proteinuria * urine electrolytes prerenal * CT A/P without obstruction but evidence of volume overload * suspect fluctuating/worsening creatinine/renal function is a manifestation of his liver disease/physiology: * decreased effective circulating volume leading to chronic prerenal azotemia worsened by his need for diuretic therapy in an effort to maintain stability his volume status... * beginnings of or transition to hepatorenal syndrome? * follow trend of renal function and UOP (2) Stage 3b chronic kidney disease: Code(s): N18.32 - Chronic kidney disease, stage 3b Status: Chronic Assessment and Plan: * as apparent on last hospitalization * creatinine seems to stabilize around 2ish range * see #1 (3) Volume overload: Qualifiers: Hypervolemia type: unspecified Qualified Code(s): E87.70 - Fluid overload, unspecified Code(s): E87.70 - Fluid overload, unspecified Status: Acute Assessment and Plan: * noted anasarca on admission * due to LISA, CKD, CHF, liver disease or combo of all... * evaluation noted: * Echo noted - EF 65-70%, indeterminate diastolic function, mild-mod aortic insufficiency, and moderate pulmonary HTN * RUQ US showing fatty infiltration of the liver with a possible nodular contour and ascites * coagulopathy noted * hypoalbuminemia noted as well * suspect liver cirrhosis major component with regard to fluid status * IV albumin chased by IV diuretics but hemodynamics make this difficult * plan paracentesis once INR stabilizes (4) Pneumonia: Qualifiers: Pneumonia type: due to unspecified organism Laterality: unspecified laterality Lung location: unspecified part of lung Qualified Code(s): J18.9 - Pneumonia, unspecified organism Code(s): J18.9 - Pneumonia, unspecified organism Status: Suspected Assessment and Plan: * Chest x-ray showing small bilateral small pleural effusion right greater than left with opacities at the right lung base which could represent pneumonia * Abdomen/pelvis CT showed a increase mild ground-glass opacity in the lingula which could represent pneumonia * follow culture data * on antibiotics (5) Cirrhosis: Qualifiers: Hepatic cirrhosis type: unspecified hepatic cirrhosis Ascites presence: with ascites Qualified Code(s): K74.60 - Unspecified cirrhosis of liver; R18.8 - Other ascites Code(s): K74.60 - Unspecified cirrhosis of liver Status: Acute Assessment and Plan: * noted by imaging studies to date * history of heavy alcohol use in the past * also on amiodarone for an extensive period of time * hepatitis panel negative * GI following as well (6) Ascites: Qualifiers: Ascites type: other type Qualified Code(s): R18.8 - Other ascites Code(s): R18.8 - Other ascites Status: Acute Assessment and Plan: * presumably secondary to liver cirrhosis * last paracentesis done on (02/16): * removal of 2650mL of fluid * paracentesis today since INR acceptable (7) Coagulopathy: Code(s): D68.9 - Coagulation defect, unspecified Status: Acute Assessment and Plan: * slow improvement * INR 7.6 on admission * Xarelto on hold * Vitamin K given * follow trend (8) Anemia: Qualifiers: Anemia type: unspecified type Qualified Code(s): D64.9 - Anemia, unspecified Code(s): D64.9 - Anemia, unspecified Status: Chronic Assessment and Plan: * chronic issue * probably due to liver disease, LISA, and CKD along with acute illness * follows with Hem/Onc * evaluation noted: * B12/folate normal by last hospitalization * anemia studies (from Nov 2024) with adequate iron stores * follow trend of H/H (9) Atrial fibrillation: Qualifiers: Atrial fibrillation type: paroxysmal Qualified Code(s): I48.0 - Paroxysmal atrial fibrillation Code(s): I48.91 - Unspecified atrial fibrillation Status: Chronic Assessment and Plan: * rate control strategy * holding xarelto given elevated INR * Echo noted (10) Kidney stones: Code(s): N20.0 - Calculus of kidney Status: Acute Assessment and Plan: * noted history of bilateral ureteric stones with bilateral hydronephrotic changes by CT scan (early January 2025) * s/p cystoscopy, bilateral retrogrades, bilateral ureteroscopy with stone extraction, and bilateral ureteral stent placement (on 01/20/25) by Urology. * imaging this admission showing resolution of the hydronephrosis * will need Urology follow-up regarding stent removal Long and extensive discussion (> 20 minutes) with patient regarding his multitude of problems including his renal dysfunction and my concern that he is a high risk for needing renal replacement therapy/dialysis given the trend of his renal function and declining urine output -- he appeared to voice understanding. Will continue to follow. L Subjective Date/time seen: 03/02/25 10:16 Interval history: Follow-up for acute kidney/acute renal failure on chronic kidney disease. Renal function/creatinine continues to deteriorate and diuretics placed on hold due to intermittent issues with hypotenson despite midodrine/octreotide therapy; still making some urine output at this time; tentatively on scheduled this afternoon for diagnostic/therapeutic paracentesis; otherwise, appears in no acute distress. Exam 2 Narrative: General: elderly and chronically ill-appearing male in NAD Heart: IRRR, normal S1 and S2; no rub Lungs: clear anteriorly; decreased at bases Abdomen: soft, nontender, mild distension with + fluid wave, positive bowel sounds Extremities: no cyanosis or clubbing; 2 - 3+ edema Skin: warm and intact Objective Data Vital Signs Vital Signs: Vital Signs Temp Pulse Resp BP Pulse Ox O2 Del Method 03/02/25 10:00 86 03/02/25 09:00 78 03/02/25 08:00 70 03/02/25 07:25 97.4 F L 73 16 105/64 96 03/02/25 06:00 63 03/02/25 04:15 Room Air 03/02/25 04:00 65 04/14/25 04:00 97.8 F 63 16 134/56 L 95 03/02/25 02:00 76 03/02/25 00:20 Room Air 03/02/25 00:00 61 03/01/25 23:21 98 F 72 20 86/58 L 98 03/01/25 22:00 67 03/01/25 20:35 Room Air 03/01/25 20:00 65 03/01/25 20:00 98.1 F 72 16 93/56 L 98 03/01/25 18:00 72 03/01/25 16:00 98 Room Air 03/01/25 16:00 70 03/01/25 16:00 98.3 F 71 18 92/62 L 98 03/01/25 14:00 74 03/01/25 12:00 73 03/01/25 12:00 98 Room Air 03/01/25 11:54 112/58 L 03/01/25 11:52 98.8 F 70 18 92/60 L 98 Intake/Output Intake/Output: Intake & Output 02/27/25 02/28/25 03/01/25 03/02/25 23:59 23:59 23:59 23:59 Intake Total 250 975.5 1811.5 96.2 Output Total 600 500 Balance 250 375.5 1311.5 96.2 Meds/Results Medications: Active Medications Generic Name Dose Route Start Last Admin Trade Name Freq PRN Reason Stop Dose Admin Acetaminophen 325 mg 02/27/25 16:47 Acetaminophen 325 Mg Tablet PO Q6H PRN Mild Pain (1-3) or Fever Azithromycin 500 mg 02/28/25 10:00 03/02/25 09:01 Azithromycin 250 Mg Tablet PO 500 mg DAILY PABLO Administration Benzonatate 100 mg 02/27/25 16:47 02/27/25 21:12 Benzonatate 100 Mg Capsule PO 100 mg TID PRN Administration Cough Folic Acid 1 mg 02/28/25 09:00 03/02/25 09:00 Folic Acid 1 Mg Tablet PO 1 mg QAM PABLO Administration Guaifenesin 600 mg 02/27/25 16:47 02/27/25 21:12 Guaifenesin 12 Hr 600 Mg Tabcr PO 600 mg Q12HR PRN Administration Congestion Cefepime HCl 1 gm in 50 mls @ 100 mls/hr 02/28/25 06:00 03/02/25 05:46 Maxipime 1 Gm/Ns 50 Ml IVPB 100 mls/hr Q12H PABLO Administration Octreotide Acetate 500 mcg/ 100 mls @ 10 mls/hr 02/28/25 11:45 03/02/25 02:35 Sodium Chloride IV CONT 50 mcg/hr .Q10H PABLO 10 mls/hr Administration 50 MCG/HR Albumin Human 50 mls @ 50 mls/hr 03/01/25 13:30 03/02/25 06:16 Albutein IVPB 03/03/25 06:29 50 mls/hr Q8H PABLO Administration Levothyroxine Sodium 75 mcg 02/28/25 06:30 03/02/25 05:49 Levothyroxine Sodium 75 Mcg Tablet PO 75 mcg DAILY@0630 PABLO Administration Magnesium Oxide 400 mg 02/28/25 09:00 03/02/25 09:00 Magnesium Oxide 400 Mg Tablet PO 400 mg BID PABLO Administration Metoprolol Succinate 50 mg 02/28/25 09:00 03/02/25 09:00 Metoprolol Succinate Ext Rel 50 Mg Tabcr PO 50 mg DAILY PABLO Administration Midodrine 2.5 mg 03/01/25 13:00 03/02/25 09:00 Midodrine Hcl 2.5 Mg Tablet PO 2.5 mg TID PABLO Administration Midodrine 10 mg 03/01/25 13:00 03/02/25 09:00 Midodrine Hcl 10 Mg Tablet PO 10 mg TID PABLO Administration Multivitamins Therapeutic 1 tablet 02/27/25 22:25 03/01/25 20:30 Multivitamins Therapeutic Tab (*Bkc) PO 1 tablet QHS PABLO Administration Tamsulosin HCl 0.4 mg 02/28/25 09:00 03/02/25 09:01 Tamsulosin Hcl 0.4 Mg Capsule PO 0.4 mg QAM PABLO Administration Vitamin D 5,000 units 02/28/25 09:00 03/02/25 09:00 Cholecalciferol 5,000 Units Tablet BY MOUTH 5,000 units DAILY PABLO Administration Radiology Results: ITS Impressions Chest X-Ray 02/27/25 13:59 IMPRESSION: 1. No significant interval change in bilateral small pleural effusions, right greater than left with opacities at the right lung base which could represent associated atelectasis and/or pneumonia. Abdomen/Pelvis CT 02/27/25 15:10 IMPRESSION: 1. No significant change in anasarca with very small left and small to moderate- sized right pleural effusions, moderate amount of ascites and prominent body wall and less severe mesenteric and retroperitoneal edema. 2. Increased mild groundglass opacity in the lingula which could represent atelectasis or pneumonia. 3. A few tiny nonobstructing renal stones Multiple calyces of both kidneys with no hydronephrosis and bilateral internal ureteral stents in expected positions. 4. Infrarenal IVC filter. Labs Labs: Laboratory Tests 03/02/25 04:22 03/02/25 04:22 PT 28.4 H INR 2.6 Calcium 7.8 L Phosphorus 4.7 H Magnesium 2.0 Total Bilirubin 2.1 H AST 42 ALT 19 Alkaline Phosphatase 203 H Total Protein 6.0 L Albumin 2.8 L Attestation Supervising Provider Attestation extensive discussion about dialysis.
--- NOTE | 2025-03-02 10:18 | P.PNIM_ITS ---
Progress Note: A&P Assessment and Plan (1) Volume overload: Qualifiers: Hypervolemia type: unspecified Qualified Code(s): E87.70 - Fluid overload, unspecified Code(s): E87.70 - Fluid overload, unspecified Status: Acute Assessment and Plan: * Chest x-ray showing bilateral small pleural effusions right greater than left with opacities in the right lung base which could represent pneumonia * Abdomen/pelvis CT shown anasarca with very small left and small to moderate- sized right pleural effusion, moderate amount of ascites and prominent body wall and less severe mesenteric and retroperitoneal edema, increased mild ground-glass opacity in the lingula which could represent pneumonia, a few tiny nonobstructive renal stones without hydronephrosis or obstruction, infrarenal IVC filter in place * Patient was given IV Lasix and albumin while in the ED * Recently had a paracentesis on 02/16/2025 yielding 2650 mL of ascites fluid * Will likely need another paracentesis however patient has supratherapeutic INR * GI and Nephrology consulted, their expertise is appreciated * Last echocardiogram reviewed from 02/14/2025 showing normal LV systolic function with an estimated EF of 65-70%, left atrium severely enlarged, right atrium moderately enlarged, moderate pulmonary hypertension with estimated pul monary arterial systolic pressure of 49 mmHg * Currently holding Bumex due to low blood pressure and worsening renal function * Consider paracentesis once INR stabilize (2) Ascites: Qualifiers: Ascites type: other type Qualified Code(s): R18.8 - Other ascites Code(s): R18.8 - Other ascites Status: Acute Assessment and Plan: See above plan of care (3) Cirrhosis: Qualifiers: Ascites presence: with ascites Hepatic cirrhosis type: unspecified hepatic cirrhosis Qualified Code(s): K74.60 - Unspecified cirrhosis of liver; R18.8 - Other ascites Code(s): K74.60 - Unspecified cirrhosis of liver Status: Acute Assessment and Plan: * Total bili initially 2.8 now up to 3.1 * Alkaline phosphate 278> 221 * Ammonia 42 on admission, now down to less than 9 * UA showed 1+ urine bilirubin * GI following and recommending Midodrine and Octreotide infusion for hepatorenal syndrome * Continue Albumin per GI recommendation * Unable to get a true MELD score due to supratherapeutic INR * Underwent paracentesis and removed 5 L * Pending fluid analysis (4) Supratherapeutic INR: Code(s): R79.1 - Abnormal coagulation profile Status: Acute Assessment and Plan: * Initial INR 7.6 now down to 2.5 * Underwent thoracentesis and removed 5 L * Xarelto stopped and he will need therapeutic Lovenox per GI recommendation as the only option for anticoagulation considering his liver failure. * Will give vitamin K today and repeat INR * Continue to trend (5) Acute kidney injury: Code(s): N17.9 - Acute kidney failure, unspecified Status: Acute Assessment and Plan: * Initial creatinine 2.8 to now down to 2.63 * Initial EGFR 22, now up to 24 * Baseline creatinine appears to be 1.13-1.17, EGFR 60 to greater than 60 * Abdomen/pelvis CT showed a few tiny nonobstructing renal stones without hydronephrosis * Protein/creatinine ratio 1.38 * Rare urine eosinophils noted on UA * Nephrology consulted * Continue to trend (6) Pneumonia: Qualifiers: Laterality: unspecified laterality Lung location: unspecified part of lung Pneumonia type: due to unspecified organism Qualified Code(s): J18.9 - Pneumonia, unspecified organism Code(s): J18.9 - Pneumonia, unspecified organism Status: Suspected Assessment and Plan: * Chest x-ray showing small bilateral small pleural effusion right greater than left with opacities at the right lung base which could represent pneumonia * Abdomen/pelvis CT showed a increase mild ground-glass opacity in the lingula which could represent pneumonia * Patient was started on cefepime, vancomycin, azithromycin * Vancomycin was deescalated due to negative MRSA * Azithromycin was changed to p.o., continue with cefepime (7) Urinary tract infection: Qualifiers: Hematuria presence: without hematuria Urinary tract infection type: acute cystitis Qualified Code(s): N30.00 - Acute cystitis without hematuria Code(s): N39.0 - Urinary tract infection, site not specified Status: Acute Assessment and Plan: * UA shown brown urine color, turbid appearance, 1+ protein, 1+ urine blood, 1+ urine bilirubin, 2+ leukocyte, greater than 100 urine RBC, 21-50 urine WBC, 3- 5 urine casts, rare urine eosinophils. * Urine culture was obtained and pending * Continue cefepime (8) Chronic anemia: Code(s): D64.9 - Anemia, unspecified Status: Chronic Assessment and Plan: Likely secondary to cirrhosis of the liver and chronic kidney disease, chronic * Hemoglobin 8.5, MCV 102.4 * Anemia workup in the past showed normal iron, ferritin, vitamin B12, folate * TSH was elevated to 12.800 on 02/14/2025 * Will recheck TSH, T3, free T4 (9) Hypertension: Qualifiers: Hypertension type: primary hypertension Qualified Code(s): I10 - Essential (primary) hypertension Code(s): I10 - Essential (primary) hypertension Status: Chronic Assessment and Plan: * Blood pressure ranging 104/65 to 110/70 * Patient is not currently on any home medications for hypertension * Continue to trend (10) CHEO (obstructive sleep apnea): Code(s): G47.33 - Obstructive sleep apnea (adult) (pediatric) Status: Chronic Assessment and Plan: * Continue CPAP (11) Atrial fibrillation: Qualifiers: Atrial fibrillation type: paroxysmal Qualified Code(s): I48.0 - Paroxysmal atrial fibrillation Code(s): I48.91 - Unspecified atrial fibrillation Status: Chronic Assessment and Plan: * Patient initially in AFib RVR on arrival to the ED * EKG showing AFib with a rate of 87, QTC 524, right bundle branch block, left posterior fascicular block * Xarelto stopped--Will need therapeutic Lovenox when appropriate as this is the only anticoagulation recommended with liver failure. * Continue metoprolol extended release 50 mg p.o. daily * Continue cardiac monitoring (12) Hypothyroidism: Code(s): E03.9 - Hypothyroidism, unspecified Status: Acute Assessment and Plan: * Continue Synthroid * Will check TSH, T3, free T4 Subjective Date/time seen: 03/02/25 10:18 Interval history: His creatinine function is getting worse. Patient is not ideal candidate for liver transplant transplant. Will discuss with family and discuss the goals of care again. Called his son and left VM. He called me back and agrees patient has poor prognosis although he reports his dad still believes he will be cured from this condition. Patient underwent thoracentesis today and removed 5 L. Ordered albumin, Gram stain, culture and cytology of the ascites fluid Review of Systems Review of Systems: All systems reviewed & are unremarkable except as noted in HPI and below Exam Narrative: General: In no acute distress, well nourished Head: atraumatic, no encephalopathy Eyes: PERRLA, sclera clear ENT: moist mucous membranes, nasal passages clear Neck: supple, no JVD, no adenopathy, trachea midline Cardiac: Normal S1 and S2. No murmur, gallops or friction rubs, peripheral pulses intact. Respiratory: Bilateral crackles in bases, no adventitious lung sounds, currently on room air Gastrointestinal: firm, taunt, non-tender, normoactive bowel sounds. Anasarca present : voiding without difficulty. Extremities: moves all extremities well, 2+ pitting edema BLE Skin: clean, dry, intact. No wounds or lesions. Neuro: Alert and oriented x4, cranial nerves intact, no neuro deficits. Psych: normal mood, normal affect, interactive Const: General: comfortable and no acute distress Other: , male, nontoxic appearance, chronically ill-appearing HENMT: Face/Nose/Sinus: Normal nares present Mouth: Yes moist mucous membranes Eyes: General: appearance normal, both eyes and all related structures Sclera: sclerae normal Pupils: Equal, round and reactive pupils present EOM: EOMs intact bilaterally Resp: Effort & Inspection: normal respiratory effort Other: Bibasilar rales. Cardio: Rate: regular rate Rhythm: regular rhythm Other: S1-S2 present without murmur, rub, ectopy GI: Other: rounded abdomen, slight fluid wave with palpation. No tenderness with palpation. Normoactive bowel sounds in all quadrants. : Other: External catheter in place, T colored output. Neuro: Cranial nerves: Yes Equal, round and reactive pupils present Speech: normal speech Motor exam (neuro): 5/5 motor strength present throughout Sensory Exam: normal sensation Other: A&O x4 Extrem: Other: 3+ pitting edema starting at upper thigh s to ankles bilaterally, R>L. Psych: Mental Status: mental status grossly normal Affect: normal affect Other: Good insight and judgment, pleasant. Objective Data Vital Signs Vital Signs: Vital Signs - 24 hr 03/01/25 11:52 03/01/25 11:54 03/01/25 12:00 Temperature 98.8 F Pulse Rate 70 Respiratory Rate 18 Blood Pressure 92/60 L 112/58 L Pulse Oximetry 98 98 Oxygen Delivery Room Air 03/01/25 12:00 03/01/25 14:00 03/01/25 16:00 Temperature 98.3 F Pulse Rate 73 74 71 Respiratory Rate 18 Blood Pressure 92/62 L Pulse Oximetry 98 Oxygen Delivery 03/01/25 16:00 03/01/25 16:00 03/01/25 18:00 Temperature Pulse Rate 70 72 Respiratory Rate Blood Pressure Pulse Oximetry 98 Oxygen Delivery Room Air 03/01/25 20:00 03/01/25 20:00 03/01/25 20:35 Temperature 98.1 F Pulse Rate 72 65 Respiratory Rate 16 Blood Pressure 93/56 L Pulse Oximetry 98 Oxygen Delivery Room Air 03/01/25 22:00 03/01/25 23:21 03/02/25 00:00 Temperature 98 F Pulse Rate 67 72 61 Respiratory Rate 20 Blood Pressure 86/58 L Pulse Oximetry 98 Oxygen Delivery 03/02/25 00:20 03/02/25 02:00 03/02/25 04:00 Temperature 97.8 F Pulse Rate 76 63 Respiratory Rate 16 Blood Pressure 134/56 L Pulse Oximetry 95 Oxygen Delivery Room Air 03/02/25 04:00 03/02/25 04:15 03/02/25 06:00 Temperature Pulse Rate 65 63 Respiratory Rate Blood Pressure Pulse Oximetry Oxygen Delivery Room Air 03/02/25 07:25 03/02/25 09:00 Temperature 97.4 F L Pulse Rate 73 78 Respiratory Rate 16 Blood Pressure 105/64 Pulse Oximetry 96 Oxygen Delivery Intake/Output Intake/Output: Intake & Output 02/27/25 02/28/25 03/01/25 03/02/25 23:59 23:59 23:59 23:59 Intake Total 250 975.5 1811.5 96.2 Output Total 600 500 Balance 250 375.5 1311.5 96.2 Meds/Results Medications: Active Medications Generic Name Dose Route Start Last Admin Trade Name Freq PRN Reason Stop Dose Admin Acetaminophen 325 mg 02/27/25 16:47 Acetaminophen 325 Mg Tablet PO Q6H PRN Mild Pain (1-3) or Fever Azithromycin 500 mg 02/28/25 10:00 03/02/25 09:01 Azithromycin 250 Mg Tablet PO 500 mg DAILY PABLO Administration Benzonatate 100 mg 02/27/25 16:47 02/27/25 21:12 Benzonatate 100 Mg Capsule PO 100 mg TID PRN Administration Cough Folic Acid 1 mg 02/28/25 09:00 03/02/25 09:00 Folic Acid 1 Mg Tablet PO 1 mg QAM PABLO Administration Guaifenesin 600 mg 02/27/25 16:47 02/27/25 21:12 Guaifenesin 12 Hr 600 Mg Tabcr PO 600 mg Q12HR PRN Administration Congestion Cefepime HCl 1 gm in 50 mls @ 100 mls/hr 02/28/25 06:00 03/02/25 05:46 Maxipime 1 Gm/Ns 50 Ml IVPB 100 mls/hr Q12H PABLO Administration Octreotide Acetate 500 mcg/ 100 mls @ 10 mls/hr 02/28/25 11:45 03/02/25 02:35 Sodium Chloride IV CONT 50 mcg/hr .Q10H PABLO 10 mls/hr Administration 50 MCG/HR Albumin Human 50 mls @ 50 mls/hr 03/01/25 13:30 03/02/25 06:16 Albutein IVPB 03/03/25 06:29 50 mls/hr Q8H PABLO Administration Levothyroxine Sodium 75 mcg 02/28/25 06:30 03/02/25 05:49 Levothyroxine Sodium 75 Mcg Tablet PO 75 mcg DAILY@0630 PABLO Administration Magnesium Oxide 400 mg 02/28/25 09:00 03/02/25 09:00 Magnesium Oxide 400 Mg Tablet PO 400 mg BID PABLO Administration Metoprolol Succinate 50 mg 02/28/25 09:00 03/02/25 09:00 Metoprolol Succinate Ext Rel 50 Mg Tabcr PO 50 mg DAILY PABLO Administration Midodrine 2.5 mg 03/01/25 13:00 03/02/25 09:00 Midodrine Hcl 2.5 Mg Tablet PO 2.5 mg TID PABLO Administration Midodrine 10 mg 03/01/25 13:00 03/02/25 09:00 Midodrine Hcl 10 Mg Tablet PO 10 mg TID PABLO Administration Multivitamins Therapeutic 1 tablet 02/27/25 22:25 03/01/25 20:30 Multivitamins Therapeutic Tab (*Bkc) PO 1 tablet QHS PABLO Administration Tamsulosin HCl 0.4 mg 02/28/25 09:00 03/02/25 09:01 Tamsulosin Hcl 0.4 Mg Capsule PO 0.4 mg QAM PABLO Administration Vitamin D 5,000 units 02/28/25 09:00 03/02/25 09:00 Cholecalciferol 5,000 Units Tablet BY MOUTH 5,000 units DAILY PABLO Administration Radiology Results: ITS Impressions Chest X-Ray 02/27/25 13:59 IMPRESSION: 1. No significant interval change in bilateral small pleural effusions, right greater than left with opacities at the right lung base which could represent associated atelectasis and/or pneumonia. Abdomen/Pelvis CT 02/27/25 15:10 IMPRESSION: 1. No significant change in anasarca with very small left and small to moderate- sized right pleural effusions, moderate amount of ascites and prominent body wall and less severe mesenteric and retroperitoneal edema. 2. Increased mild groundglass opacity in the lingula which could represent atelectasis or pneumonia. 3. A few tiny nonobstructing renal stones Multiple calyces of both kidneys with no hydronephrosis and bilateral internal ureteral stents in expected positions. 4. Infrarenal IVC filter. Labs Labs: Laboratory Results - last 24 hr 03/01/25 03/02/25 16:48 04:22 WBC 8.0 RBC 2.46 L Hgb 8.5 L Hct 25.2 L MCV 102.4 H MCH 34.6 H MCHC 33.7 RDW 15.6 H Plt Count 175 MPV 10.2 Immature Gran % (Auto) 0.5 Neut % (Auto) 71.7 Lymph % (Auto) 14.9 L [place] % (Auto) 6.9 Eos % (Auto) 5.1 H Baso % (Auto) 0.9 Lymph # (Auto) 1.19 [place] # (Auto) 0.6 Eos # (Auto) 0.4 H Baso # (Auto) 0.1 Abs Immat Gran (auto) 0.04 H Absolute Neuts (auto) 5.7 Absolute Nucleated RBC 0.000 Nucleated RBC % 0.0 PT 30.8 H D 28.4 H INR 2.9 2.6 Sodium 131 L 131 L Potassium 4.1 4.0 Chloride 98 99 Carbon Dioxide 23 21 L Anion Gap 10 11 BUN 49 H 48 H Creatinine 3.00 H 3.19 H Estim Creat Clear Calc 20 19 Estimated GFR 20 L 19 L Glucose 118 H 129 H Calcium 7.9 L 7.8 L Phosphorus 4.7 H Magnesium 2.0 Total Bilirubin 2.1 H AST 42 ALT 19 Alkaline Phosphatase 203 H Total Protein 6.0 L Albumin 2.8 L Quality VTE Prophylaxis VTE prophylaxis: mechanical ordered Hospitalist MIPS Advance Care Plan I have confirmed that the patient's Advanced Care Plan is present, code status is documented, or surrogate decision maker is listed in patient medical record.: Yes Medication Reconciliation I have utilized all available resources to obtain, update and review the pat ients current medications (includes all prescriptions, OTC, herbals, cannabis, and nutritional supplements).: Yes
--- NOTE | 2025-03-02 14:26 | WPDGIPROGNO ---
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 As previously documented, diuretic use remains absolutely contraindicated due to significant volume retention and third spacing, manifested as ascites and lower extremity edema. For patient comfort, a large volume paracentesis is indicated and can now be safely performed given today's INR of 2.6, resolving the prior contraindication due to over-anticoagulation. Nephrology is actively following the patient, and dialysis will need to be considered if the creatinine trend persists .Overall, the patient's prognosis remains poor for reasons detailed in previous notes. Subjective Date/time seen: 03/02/25 14:26 Interval history: Patient remains in no acute distress, alert and awake, oriented x3. Review of Systems Review of Systems: All systems reviewed & are unremarkable except as noted in HPI and below Exam Narrative: Abdomen: Tense, fluid wave positive. Extremities: Significant pedal and pretibial edema. Rest of the examination within normal limits Objective Data Vital Signs Vital Signs: Vital Signs - 24 hr 03/01/25 16:00 03/01/25 16:00 03/01/25 16:00 Temperature 98.3 F Pulse Rate 71 70 Respiratory Rate 18 Blood Pressure 92/62 L Pulse Oximetry 98 98 Oxygen Delivery Room Air 03/01/25 18:00 03/01/25 20:00 03/01/25 20:00 Temperature 98.1 F Pulse Rate 72 72 65 Respiratory Rate 16 Blood Pressure 93/56 L Pulse Oximetry 98 Oxygen Delivery 03/01/25 20:35 03/01/25 22:00 03/01/25 23:21 Temperature 98 F Pulse Rate 67 72 Respiratory Rate 20 Blood Pressure 86/58 L Pulse Oximetry 98 Oxygen Delivery Room Air 03/02/25 00:00 03/02/25 00:20 03/02/25 02:00 Temperature Pulse Rate 61 76 Respiratory Rate Blood Pressure Pulse Oximetry Oxygen Delivery Room Air 03/02/25 04:00 03/02/25 04:00 03/02/25 04:15 Temperature 97.8 F Pulse Rate 63 65 Respiratory Rate 16 Blood Pressure 134/56 L Pulse Oximetry 95 Oxygen Delivery Room Air 03/02/25 06:00 03/02/25 07:25 03/02/25 08:00 Temperature 97.4 F L Pulse Rate 63 73 70 Respiratory Rate 16 Blood Pressure 105/64 Pulse Oximetry 96 Oxygen Delivery 03/02/25 09:00 03/02/25 10:00 03/02/25 11:45 Temperature 98.1 F Pulse Rate 78 86 77 Respiratory Rate 16 Blood Pressure 98/51 L Pulse Oximetry 97 Oxygen Delivery Intake/Output Intake/Output: Intake & Output 02/27/25 02/28/25 03/01/25 03/02/25 23:59 23:59 23:59 23:59 Intake Total 250 975.5 1811.5 187.5 Output Total 862 376 7814 Balance 250 375.5 1311.5 -4812.5 Meds/Results Medications: Active Medications Generic Name Dose Route Start Last Admin Trade Name Freq PRN Reason Stop Dose Admin Acetaminophen 325 mg 02/27/25 16:47 Acetaminophen 325 Mg Tablet PO Q6H PRN Mild Pain (1-3) or Fever Azithromycin 500 mg 02/28/25 10:00 03/02/25 09:01 Azithromycin 250 Mg Tablet PO 03/03/25 23:59 500 mg DAILY PABLO Administration Benzonatate 100 mg 02/27/25 16:47 02/27/25 21:12 Benzonatate 100 Mg Capsule PO 100 mg TID PRN Administration Cough Folic Acid 1 mg 02/28/25 09:00 03/02/25 09:00 Folic Acid 1 Mg Tablet PO 1 mg QAM PABLO Administration Guaifenesin 600 mg 02/27/25 16:47 02/27/25 21:12 Guaifenesin 12 Hr 600 Mg Tabcr PO 600 mg Q12HR PRN Administration Congestion Cefepime HCl 1 gm in 50 mls @ 100 mls/hr 02/28/25 06:00 03/02/25 05:46 Maxipime 1 Gm/Ns 50 Ml IVPB 100 mls/hr Q12H PABLO Administration Octreotide Acetate 500 mcg/ 100 mls @ 10 mls/hr 02/28/25 11:45 03/02/25 11:43 Sodium Chloride IV CONT 50 mcg/hr .Q10H PABLO 10 mls/hr Administration 50 MCG/HR Albumin Human 50 mls @ 50 mls/hr 03/01/25 13:30 03/02/25 06:16 Albutein IVPB 03/03/25 06:29 50 mls/hr Q8H PABLO Administration Levothyroxine Sodium 75 mcg 02/28/25 06:30 03/02/25 05:49 Levothyroxine Sodium 75 Mcg Tablet PO 75 mcg DAILY@0630 PABLO Administration Magnesium Oxide 400 mg 02/28/25 09:00 03/02/25 09:00 Magnesium Oxide 400 Mg Tablet PO 400 mg BID PABLO Administration Metoprolol Succinate 50 mg 02/28/25 09:00 03/02/25 09:00 Metoprolol Succinate Ext Rel 50 Mg Tabcr PO 50 mg DAILY PABLO Administration Midodrine 2.5 mg 03/01/25 13:00 03/02/25 09:00 Midodrine Hcl 2.5 Mg Tablet PO 2.5 mg TID PABLO Administration Midodrine 10 mg 03/01/25 13:00 03/02/25 09:00 Midodrine Hcl 10 Mg Tablet PO 10 mg TID PABLO Administration Multivitamins Therapeutic 1 tablet 02/27/25 22:25 03/01/25 20:30 Multivitamins Therapeutic Tab (*Bkc) PO 1 tablet QHS PABLO Administration Tamsulosin HCl 0.4 mg 02/28/25 09:00 03/02/25 09:01 Tamsulosin Hcl 0.4 Mg Capsule PO 0.4 mg QAM PABLO Administration Vitamin D 5,000 units 02/28/25 09:00 03/02/25 09:00 Cholecalciferol 5,000 Units Tablet BY MOUTH 5,000 units DAILY PABLO Administration Radiology Results: ITS Impressions Chest X-Ray 02/27/25 13:59 IMPRESSION: 1. No significant interval change in bilateral small pleural effusions, right greater than left with opacities at the right lung base which could represent associated atelectasis and/or pneumonia. Abdomen/Pelvis CT 02/27/25 15:10 IMPRESSION: 1. No significant change in anasarca with very small left and small to moderate-sized right pleural effusions, moderate amount of ascites and prominent body wall and less severe mesenteric and retroperitoneal edema. 2. Increased mild groundglass opacity in the lingula which could represent atelectasis or pneumonia. 3. A few tiny nonobstructing renal stones Multiple calyces of both kidneys with no hydronephrosis and bilateral internal ureteral stents in expected positions. 4. Infrarenal IVC filter. Paracentesis Ultrasound 03/02/25 14:08 IMPRESSION: 1. Successful ultrasound-guided paracentesis yielding 5000 mL of francisco javier-colored fluid. Labs Labs: Laboratory Results - last 24 hr 03/01/25 03/02/25 16:48 04:22 WBC 8.0 RBC 2.46 L Hgb 8.5 L Hct 25.2 L MCV 102.4 H MCH 34.6 H MCHC 33.7 RDW 15.6 H Plt Count 175 MPV 10.2 Immature Gran % (Auto) 0.5 Neut % (Auto) 71.7 Lymph % (Auto) 14.9 L [place] % (Auto) 6.9 Eos % (Auto) 5.1 H Baso % (Auto) 0.9 Lymph # (Auto) 1.19 [place] # (Auto) 0.6 Eos # (Auto) 0.4 H Baso # (Auto) 0.1 Abs Immat Gran (auto) 0.04 H Absolute Neuts (auto) 5.7 Absolute Nucleated RBC 0.000 Nucleated RBC % 0.0 PT 30.8 H D 28.4 H INR 2.9 2.6 Sodium 131 L 131 L Potassium 4.1 4.0 Chloride 98 99 Carbon Dioxide 23 21 L Anion Gap 10 11 BUN 49 H 48 H Creatinine 3.00 H 3.19 H Estim Creat Clear Calc 20 19 Estimated GFR 20 L 19 L Glucose 118 H 129 H Calcium 7.9 L 7.8 L Phosphorus 4.7 H Magnesium 2.0 Total Bilirubin 2.1 H AST 42 ALT 19 Alkaline Phosphatase 203 H Total Protein 6.0 L Albumin 2.8 L
[2025-03-02 16:02] LABS: Appearance Peritoneal Fluid Clear (Clear); Color Peritoneal Fluid Yellow (Colorless); Nucleated Cells Peritoneal Flu 77 /uL (0-500); Source Peritoneal Fluid Peritoneal Fluid
[2025-03-02 16:03] LABS: Lymphocytes Peritoneal Fluid 15 %; Macrophages Peritoneal Fluid 6 %; Mesothelial Cells Peritoneal Fluid 4 %; Monocytes Peritoneal Fluid 65 %; Neutrophils Peritoneal Fluid 10 % (0-25); RBC Peritoneal Fluid < 2000 /uL (0-10000)
[2025-03-02] MEDS: MULTIVITAMINS THERAPEUTIC TAB (*BKC) 1 TABLET PO (21:00)
[2025-03-03] VITALS (18 sets, daily range): BP systolic 92–131; BP diastolic 56–95; PULSE 65–87; RESP 16–18; TEMP 36.3–37.1; O2SAT 67–100
[2025-03-03 04:47] LABS: Basophils Absolute Auto 0.1 K/mm3 (0.0-0.1); Basophils Percent Auto 1.2 % (0.2-1.2); Eosinophils Absolute Auto 0.3 K/mm3 (0-0.3); Hematocrit 26.9 % (42.0-52.0); Hemoglobin 8.7 g/dL (14.0-18.0); Immature Granulocyte Absolute 0.02 K/mm3 (0.00-0.031); Immature Granulocyte Percent A 0.3 % (0-0.5); Lymphocytes Absolute Auto 0.95 K/mm3 (0.9-3.2); Lymphocytes Percent Auto 14.5 % (18.3-44.2); Mean Corpuscular HGB Conc 32.3 g/dl (32-36); Mean Corpuscular Hemoglobin 34.3 pg (26-34); Mean Corpuscular Volume 105.9 fl (80-100); Mean Platelet Volume 10.6 fl (7.4-10.4); Monocytes Absolute Auto 0.4 K/mm3 (0.1-0.6); Monocytes Percent Auto 6.7 % (2.6-8.5); Neutrophils Absolute Auto 4.7 K/mm3 (1.3-6.7); Neutrophils Percent Auto 72.3 % (45.5-73.1); Platelet Count Result 163 k/mm3 (150-375); Red Blood Count 2.54 M/mm3 (4.6-6.20); Red Cell Distribution Width 15.5 % (11.5-14.5); White Blood Count 6.6 K/mm3 (4.5-10.0)
[2025-03-03 05:05] LABS: Alanine Aminotransferase 18 U/L (6-50); Albumin Level 2.6 g/dL (3.5-5.1); Alkaline Phosphatase 199 U/L (38-126); Anion Gap 10 mmol/L (4-12); Aspartate Amino Transferase 37 U/L (17-59); Bilirubin,Total 1.8 mg/dL (0.2-1.3); Blood Urea Nitrogen 52 mg/dL (9-20); Calcium 7.8 mg/dL (8.4-10.2); Carbon Dioxide 23 mmol/L (22-30); Chloride 99 mmol/L (98-107); Estimated CRCL calculation 18 ml/min; Estimated Glomerular Filt Rate 16; Glucose 128 mg/dL (65-110); Magnesium 2.1 mg/dL (1.6-2.3); Phosphorus 4.5 mg/dL (2.5-4.5); Potassium 3.9 mmol/L (3.4-5.0); Sodium 132 mmol/L (137-145)
[2025-03-03 05:19] LABS: INR 2.2; Prothrombin Time 25.1 Seconds (11.1-14.7)
[2025-03-03] MEDS: LEVOTHYROXINE SODIUM 75 MCG TABLET PO (05:50)
[2025-03-03] MEDS: ALBUMIN HUMAN 25% 12.5 GM/50ML 50 ML IVPB (05:50)
[2025-03-03 05:53] LABS: Platelet Estimate Adequate (Adequate)
[2025-03-03 05:54] LABS: Anisocytosis 1+; Hypochromasia 1+; Ovalocytes 1+; Schistocytes Rare
[2025-03-03] MEDS: CEFEPIME 1 GM/NS 50 ML 1 GM/50 ML BAG IVPB ×2 (06:22→17:41)
[2025-03-03] MEDS: OCTREOTIDE ACETATE 500 MCG in SODIUM CHLORIDE 0.9% IV 99 ML 10 MCG IV CONT ×2 (06:48→15:23)
--- NOTE | 2025-03-03 09:36 | WPDGIPROGNO ---
Progress Note: A&P Assessment and Plan (1) Cirrhosis: Qualifiers: Hepatic cirrhosis type: unspecified hepatic cirrhosis Ascites presence: with ascites Qualified Code(s): K74.60 - Unspecified cirrhosis of liver; R18.8 - Other ascites Code(s): K74.60 - Unspecified cirrhosis of liver Status: Acute Assessment and Plan: The patient with advanced cirrhosis, ascites, and a current MELD 3.0 score of 31 is experiencing worsening renal failure despite treatment with octreotide and midodrine. This raises concern for refractory hepatorenal syndrome, though escalation to norepinephrine and octreotide could be considered, which would necessitate ICU transfer. His INR has returned to baseline following discontinuation of oral anticoagulants. However, his persistently high MELD score indicates a poor prognosis. Given the worsening renal failure, the benefit of ICU transfer for norepinephrine initiation is unclear, and nephrology consultation is requested for guidance on management. If his renal function continues to deteriorate, dialysis may need to be considered. Subjective Date/time seen: 03/03/25 09:36 Interval history: The patient had 5 L of clear ascitic fluid drained yesterday. No increased PMNs, ruling out SBP. However, his creatinine continues to go up, increased from 3.19 yesterday to 3.62 today. Objective Data Vital Signs Vital Signs: Vital Signs - 24 hr 03/02/25 10:00 03/02/25 11:45 03/02/25 12:00 Temperature 98.1 F Pulse Rate 86 77 76 Respiratory Rate 16 Blood Pressure 98/51 L Pulse Oximetry 97 Oxygen Delivery 03/02/25 14:00 03/02/25 15:50 03/02/25 16:00 Temperature 97.6 F Pulse Rate 72 79 63 Respiratory Rate 16 Blood Pressure 92/63 L Pulse Oximetry 99 Oxygen Delivery 03/02/25 18:00 03/02/25 19:42 03/02/25 20:00 Temperature 97.5 F L Pulse Rate 66 69 Respiratory Rate 18 Blood Pressure 96/56 L Pulse Oximetry 99 Oxygen Delivery Room Air 03/02/25 20:00 03/02/25 22:00 03/03/25 00:00 Temperature Pulse Rate 66 69 Respiratory Rate Blood Pressure Pulse Oximetry Oxygen Delivery Room Air 03/03/25 00:00 03/03/25 00:00 03/03/25 02:00 Temperature 98.7 F Pulse Rate 65 69 67 Respiratory Rate 18 Blood Pressure 131/94 H Pulse Oximetry 95 Oxygen Delivery 03/03/25 03:33 03/03/25 04:00 03/03/25 04:00 Temperature Pulse Rate 76 75 Respiratory Rate Blood Pressure 97/56 L Pulse Oximetry 96 Oxygen Delivery Room Air 03/03/25 06:00 03/03/25 07:40 03/03/25 08:00 Temperature 97.6 F Pulse Rate 73 79 70 Respiratory Rate 18 Blood Pressure 109/64 Pulse Oximetry 99 Oxygen Delivery Intake/Output Intake/Output: Intake & Output 02/28/25 03/01/25 03/02/25 03/03/25 23:59 23:59 23:59 23:59 Intake Total 975.5 1811.5 670.3 388 Output Total 972 356 9918 125 Balance 375.5 1311.5 -4479.7 263 Meds/Results Medications: Active Medications Generic Name Dose Route Start Last Admin Trade Name Freq PRN Reason Stop Dose Admin Acetaminophen 325 mg 02/27/25 16:47 Acetaminophen 325 Mg Tablet PO Q6H PRN Mild Pain (1-3) or Fever Azithromycin 500 mg 02/28/25 10:00 03/02/25 09:01 Azithromycin 250 Mg Tablet PO 03/03/25 23:59 500 mg DAILY PABLO Administration Benzonatate 100 mg 02/27/25 16:47 02/27/25 21:12 Benzonatate 100 Mg Capsule PO 100 mg TID PRN Administration Cough Folic Acid 1 mg 02/28/25 09:00 03/02/25 09:00 Folic Acid 1 Mg Tablet PO 1 mg QAM PABLO Administration Guaifenesin 600 mg 02/27/25 16:47 02/27/25 21:12 Guaifenesin 12 Hr 600 Mg Tabcr PO 600 mg Q12HR PRN Administration Congestion Cefepime HCl 1 gm in 50 mls @ 100 mls/hr 02/28/25 06:00 03/03/25 06:22 Maxipime 1 Gm/Ns 50 Ml IVPB 100 mls/hr Q12H PABLO Administration Octreotide Acetate 500 mcg/ 100 mls @ 10 mls/hr 02/28/25 11:45 03/03/25 06:48 Sodium Chloride IV CONT 50 mcg/hr .Q10H PABLO 10 mls/hr Administration 50 MCG/HR Levothyroxine Sodium 75 mcg 02/28/25 06:30 03/03/25 05:50 Levothyroxine Sodium 75 Mcg Tablet PO 75 mcg DAILY@0630 PABLO Administration Magnesium Oxide 400 mg 02/28/25 09:00 03/02/25 14:45 Magnesium Oxide 400 Mg Tablet PO 400 mg BID PABLO Administration Metoprolol Succinate 50 mg 02/28/25 09:00 03/02/25 09:00 Metoprolol Succinate Ext Rel 50 Mg Tabcr PO 50 mg DAILY PABLO Administration Midodrine 2.5 mg 03/01/25 13:00 03/02/25 18:06 Midodrine Hcl 2.5 Mg Tablet PO 2.5 mg TID PABLO Administration Midodrine 10 mg 03/01/25 13:00 03/02/25 18:06 Midodrine Hcl 10 Mg Tablet PO 10 mg TID PABLO Administration Multivitamins Therapeutic 1 tablet 02/27/25 22:25 03/02/25 21:00 Multivitamins Therapeutic Tab (*Bkc) PO 1 tablet QHS PABLO Administration Tamsulosin HCl 0.4 mg 02/28/25 09:00 03/02/25 09:01 Tamsulosin Hcl 0.4 Mg Capsule PO 0.4 mg QAM PABLO Administration Vitamin D 5,000 units 02/28/25 09:00 03/02/25 09:00 Cholecalciferol 5,000 Units Tablet BY MOUTH 5,000 units DAILY PABLO Administration Radiology Results: ITS Impressions Chest X-Ray 02/27/25 13:59 IMPRESSION: 1. No significant interval change in bilateral small pleural effusions, right greater than left with opacities at the right lung base which could represent associated atelectasis and/or pneumonia. Abdomen/Pelvis CT 02/27/25 15:10 IMPRESSION: 1. No significant change in anasarca with very small left and small to moderate-sized right pleural effusions, moderate amount of ascites and prominent body wall and less severe mesenteric and retroperitoneal edema. 2. Increased mild groundglass opacity in the lingula which could represent atelectasis or pneumonia. 3. A few tiny nonobstructing renal stones Multiple calyces of both kidneys with no hydronephrosis and bilateral internal ureteral stents in expected positions. 4. Infrarenal IVC filter. Paracentesis Ultrasound 03/02/25 14:08 IMPRESSION: 1. Successful ultrasound-guided paracentesis yielding 5000 mL of francisco javier-colored fluid. Labs Labs: Laboratory Results - last 24 hr 03/02/25 03/02/25 03/03/25 13:28 14:12 04:04 WBC 6.6 RBC 2.54 L Hgb 8.7 L Hct 26.9 L MCV 105.9 H MCH 34.3 H MCHC 32.3 RDW 15.5 H Plt Count 163 MPV 10.6 H Immature Gran % (Auto) 0.3 Neut % (Auto) 72.3 Lymph % (Auto) 14.5 L [place] % (Auto) 6.7 Eos % (Auto) 5.0 H Baso % (Auto) 1.2 Lymph # (Auto) 0.95 [place] # (Auto) 0.4 Eos # (Auto) 0.3 Baso # (Auto) 0.1 Abs Immat Gran (auto) 0.02 Absolute Neuts (auto) 4.7 Absolute Nucleated RBC 0.000 Band Neutrophils % Not Reportable Nucleated RBC % 0.0 Platelet Estimate Adequate Hypochromasia 1+ Anisocytosis 1+ Ovalocytes 1+ Schistocytes Rare PT 25.1 H INR 2.2 Sodium 132 L Potassium 3.9 Chloride 99 Carbon Dioxide 23 Anion Gap 10 BUN 52 H Creatinine 3.62 H Estim Creat Clear Calc 18 Estimated GFR 16 L Glucose 128 H Calcium 7.8 L Phosphorus 4.5 Magnesium 2.1 Total Bilirubin 1.8 H AST 37 ALT 18 Alkaline Phosphatase 199 H Total Protein 5.0 L Albumin 3.0 L 2.6 L Peritoneal Source Peritoneal fluid Peritoneal Color Yellow Peritoneal Appearance Clear Peritoneal RBC < 2000 Periton Nuc Cells 77 Periton Neutrophils 10 Periton Lymphocytes 15 Peritoneal Monocytes 65 Periton Mesothelial 4 Periton Macrophages 6
[2025-03-03] MEDS: AZITHROMYCIN 250 MG TABLET 500 MG PO (09:41)
[2025-03-03] MEDS: MIDODRINE HCL 2.5 MG TABLET PO (09:42)
[2025-03-03] MEDS: METOPROLOL SUCCINATE EXT REL 50 MG TABCR PO (09:42)
[2025-03-03] MEDS: CHOLECALCIFEROL 5,000 UNITS TABLET 5000 UNITS BY MOUTH (09:42)
[2025-03-03] MEDS: TAMSULOSIN HCL 0.4 MG CAPSULE PO (09:42)
[2025-03-03] MEDS: MAGNESIUM OXIDE 400 MG TABLET PO ×2 (09:42→17:41)
[2025-03-03] MEDS: MIDODRINE HCL 10 MG TABLET PO (09:42)
[2025-03-03] MEDS: FOLIC ACID 1 MG TABLET PO (09:42)
--- NOTE | 2025-03-03 11:00 | P.PNNP_ITS ---
Progress Note: A&P Assessment and Plan (1) Acute kidney injury: Code(s): N17.9 - Acute kidney failure, unspecified Status: Acute Assessment and Plan: * continue to worsen... * trend of creatinine is as noted * had been running ~ 1.1 - 1.5mg/l since 2020 * averaging ~ 1.1 - 1.3mg/dl in 2022 - 2023 * creatinine up to 2.0mg/dl in November 2024 * hospitalized in early January 2025 for LISA with creatinine of 3.6mg/dl secondary to obstructive uropathy -- bilateral ureteric stones with bilateral hydronephrotic changes present and had bilateral ureteral stents placed with creatinine of 1.13mg/dl at discharge * noted creatinine of 1.41mg/dl on 02/03/25 (outpatient labs) * creatinine ~ 2.0mg/dl on discharge in early February 2025 (02/19/25) * admission creatinine 2.82mg/dl * evaluation on previous and this hospitalization noted: * 2+ protein and 3+ blood on UA (due to stents?) * urine eosinophils negative previously; rare on this admission * 1300mg of proteinuria * urine electrolytes prerenal * CT A/P without obstruction but evidence of volume overload * suspect fluctuating/worsening creatinine/renal function is a manifestation of his liver disease/physiology: * decreased effective circulating volume leading to chronic prerenal azotemia worsened by his need for diuretic therapy in an effort to maintain stability his volume status... * beginnings of or transition to hepatorenal syndrome? * follow trend of renal function and UOP (2) Stage 3b chronic kidney disease: Code(s): N18.32 - Chronic kidney disease, stage 3b Status: Chronic Assessment and Plan: * as apparent on last hospitalization * creatinine seems to stabilize around 2ish range * see #1 (3) Volume overload: Qualifiers: Hypervolemia type: unspecified Qualified Code(s): E87.70 - Fluid overload, unspecified Code(s): E87.70 - Fluid overload, unspecified Status: Acute Assessment and Plan: * noted anasarca on admission * due to LISA, CKD, CHF, liver disease or combo of all... * evaluation noted: * Echo noted - EF 65-70%, indeterminate diastolic function, mild-mod aortic insufficiency, and moderate pulmonary HTN * RUQ US showing fatty infiltration of the liver with a possible nodular contour and ascites * coagulopathy noted * hypoalbuminemia noted as well * suspect liver cirrhosis major component with regard to fluid status * IV albumin chased by IV diuretics but hemodynamics make this difficult * s/p paracentesis on 03/02 (4) Pneumonia: Qualifiers: Pneumonia type: due to unspecified organism Laterality: unspecified laterality Lung location: unspecified part of lung Qualified Code(s): J18.9 - Pneumonia, unspecified organism Code(s): J18.9 - Pneumonia, unspecified organism Status: Suspected Assessment and Plan: * Chest x-ray showing small bilateral small pleural effusion right greater than left with opacities at the right lung base which could represent pneumonia * Abdomen/pelvis CT showed a increase mild ground-glass opacity in the lingula which could represent pneumonia * follow culture data * on antibiotics (5) Cirrhosis: Qualifiers: Hepatic cirrhosis type: unspecified hepatic cirrhosis Ascites presence: with ascites Qualified Code(s): K74.60 - Unspecified cirrhosis of liver; R18.8 - Other ascites Code(s): K74.60 - Unspecified cirrhosis of liver Status: Acute Assessment and Plan: * noted by imaging studies to date * history of heavy alcohol use in the past * also on amiodarone for an extensive period of time * hepatitis panel negative * GI following as well (6) Ascites: Qualifiers: Ascites type: other type Qualified Code(s): R18.8 - Other ascites Code(s): R18.8 - Other ascites Status: Acute Assessment and Plan: * presumably secondary to liver cirrhosis * last paracentesis done on (02/16): * removal of 2650mL of fluid * s/p paracentesis on 03/02 (7) Coagulopathy: Code(s): D68.9 - Coagulation defect, unspecified Status: Acute Assessment and Plan: * slow improvement * INR 7.6 on admission * Xarelto on hold * Vitamin K given * follow trend (8) Anemia: Qualifiers: Anemia type: unspecified type Qualified Code(s): D64.9 - Anemia, unspecified Code(s): D64.9 - Anemia, unspecified Status: Chronic Assessment and Plan: * chronic issue * probably due to liver disease, LISA, and CKD along with acute illness * follows with Hem/Onc * evaluation noted: * B12/folate normal by last hospitalization * anemia studies (from Nov 2024) with adequate iron stores * follow trend of H/H (9) Atrial fibrillation: Qualifiers: Atrial fibrillation type: paroxysmal Qualified Code(s): I48.0 - Paroxysmal atrial fibrillation Code(s): I48.91 - Unspecified atrial fibrillation Status: Chronic Assessment and Plan: * rate control strategy * holding xarelto given elevated INR * Echo noted (10) Kidney stones: Code(s): N20.0 - Calculus of kidney Status: Acute Assessment and Plan: * noted history of bilateral ureteric stones with bilateral hydronephrotic changes by CT scan (early January 2025) * s/p cystoscopy, bilateral retrogrades, bilateral ureteroscopy with stone extraction, and bilateral ureteral stent placement (on 01/20/25) by Urology. * imaging this admission showing resolution of the hydronephrosis * will need Urology follow-up regarding stent removal Will continue to follow. L Subjective Date/time seen: 03/03/25 11:00 Interval history: Follow-up for acute kidney/acute renal failure on chronic kidney disease. Status post large volume paracentesis yesterday and tolerated procedure reasonably well; unfortunately, his renal function/creatinine continues to deteriorate with associated decline in urine output despite all interventions to date (IV albumin, midodrine, octreotide); Exam 2 Narrative: General: elderly and chronically ill-appearing male in NAD Heart: IRRR, normal S1 and S2; no rub Lungs: clear anteriorly; decreased at bases Abdomen: soft, nontender, mild distension with + fluid wave, positive bowel sounds Extremities: no cyanosis or clubbing; 2 - 3+ edema Skin: no rash Objective Data Vital Signs Vital Signs: Vital Signs Temp Pulse Resp BP Pulse Ox O2 Del Method 03/03/25 11:00 97.6 F 67 16 102/65 67 L 03/03/25 09:42 87 03/03/25 08:00 99 Room Air 03/03/25 08:00 70 03/03/25 07:40 97.6 F 79 18 109/64 99 03/03/25 06:00 73 03/03/25 04:00 75 03/03/25 04:00 Room Air 03/03/25 03:33 76 97/56 L 96 03/03/25 02:00 67 03/03/25 00:00 98.7 F 69 18 131/94 H 95 03/03/25 00:00 65 03/03/25 00:00 Room Air 03/02/25 22:00 69 03/02/25 20:00 66 03/02/25 20:00 Room Air 03/02/25 19:42 97.5 F L 69 18 96/56 L 99 03/02/25 18:00 66 03/02/25 16:00 63 03/02/25 15:50 97.6 F 79 16 92/63 L 99 03/02/25 14:00 72 Intake/Output Intake/Output: Intake & Output 02/28/25 03/01/25 03/02/25 03/03/25 23:59 23:59 23:59 23:59 Intake Total 975.5 1811.5 670.3 388 Output Total 288 692 2917 150 Balance 375.5 1311.5 -4479.7 238 Meds/Results Medications: Active Medications Generic Name Dose Route Start Last Admin Trade Name Freq PRN Reason Stop Dose Admin Acetaminophen 325 mg 02/27/25 16:47 Acetaminophen 325 Mg Tablet PO Q6H PRN Mild Pain (1-3) or Fever Azithromycin 500 mg 02/28/25 10:00 03/03/25 09:41 Azithromycin 250 Mg Tablet PO 03/03/25 23:59 500 mg DAILY PABLO Administration Benzonatate 100 mg 02/27/25 16:47 02/27/25 21:12 Benzonatate 100 Mg Capsule PO 100 mg TID PRN Administration Cough Folic Acid 1 mg 02/28/25 09:00 03/03/25 09:42 Folic Acid 1 Mg Tablet PO 1 mg QAM PABLO Administration Guaifenesin 600 mg 02/27/25 16:47 02/27/25 21:12 Guaifenesin 12 Hr 600 Mg Tabcr PO 600 mg Q12HR PRN Administration Congestion Cefepime HCl 1 gm in 50 mls @ 100 mls/hr 02/28/25 06:00 03/03/25 06:22 Maxipime 1 Gm/Ns 50 Ml IVPB 100 mls/hr Q12H PABLO Administration Octreotide Acetate 500 mcg/ 100 mls @ 10 mls/hr 02/28/25 11:45 03/03/25 06:48 Sodium Chloride IV CONT 50 mcg/hr .Q10H PABLO 10 mls/hr Administration 50 MCG/HR Levothyroxine Sodium 75 mcg 02/28/25 06:30 03/03/25 05:50 Levothyroxine Sodium 75 Mcg Tablet PO 75 mcg DAILY@0630 PABLO Administration Magnesium Oxide 400 mg 02/28/25 09:00 03/03/25 09:42 Magnesium Oxide 400 Mg Tablet PO 400 mg BID PABLO Administration Metoprolol Succinate 50 mg 02/28/25 09:00 03/03/25 09:42 Metoprolol Succinate Ext Rel 50 Mg Tabcr PO 50 mg DAILY PABLO Administration Multivitamins Therapeutic 1 tablet 02/27/25 22:25 03/02/25 21:00 Multivitamins Therapeutic Tab (*Bkc) PO 1 tablet QHS PABLO Administration Tamsulosin HCl 0.4 mg 02/28/25 09:00 03/03/25 09:42 Tamsulosin Hcl 0.4 Mg Capsule PO 0.4 mg QAM PABLO Administration Vitamin D 5,000 units 02/28/25 09:00 03/03/25 09:42 Cholecalciferol 5,000 Units Tablet BY MOUTH 5,000 units DAILY PABLO Administration Radiology Results: ITS Impressions Chest X-Ray 02/27/25 13:59 IMPRESSION: 1. No significant interval change in bilateral small pleural effusions, right greater than left with opacities at the right lung base which could represent associated atelectasis and/or pneumonia. Abdomen/Pelvis CT 02/27/25 15:10 IMPRESSION: 1. No significant change in anasarca with very small left and small to moderate- sized right pleural effusions, moderate amount of ascites and prominent body wall and less severe mesenteric and retroperitoneal edema. 2. Increased mild groundglass opacity in the lingula which could represent atelectasis or pneumonia. 3. A few tiny nonobstructing renal stones Multiple calyces of both kidneys with no hydronephrosis and bilateral internal ureteral stents in expected positions. 4. Infrarenal IVC filter. Paracentesis Ultrasound 03/02/25 14:08 IMPRESSION: 1. Successful ultrasound-guided paracentesis yielding 5000 mL of francisco javier-colored fluid. Labs Labs: Laboratory Tests 03/03/25 04:04 03/03/25 04:04 PT 25.1 H INR 2.2 Calcium 7.8 L Phosphorus 4.5 Magnesium 2.1 Total Bilirubin 1.8 H AST 37 ALT 18 Alkaline Phosphatase 199 H Total Protein 5.0 L Albumin 2.6 L Microbiology 03/02/25 13:28 Ascites Fluid Anaerobic Culture - Preliminary 03/02/25 13:28 Abdominal Fluid Anaerobic Culture - Preliminary Attestation Supervising Provider Attestation extensive discussion about dialysis.
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
--- NOTE | 2025-03-03 15:10 | PC.NURSE ---
Pt reports pain 9/10 to rowe site. Reports it feels like a spasm. Dr. Rick made aware. Advised to remove 5 mls from rowe balloon. New orders noted for Oxybutynin.
[2025-03-03] MEDS: oxyBUTYnin CHLORIDE 5 MG TABLET PO (15:23)
--- NOTE | 2025-03-03 16:16 | PC.NURSE ---
Pt complains of 9/[address] Rick made aware. New orders to d/c rowe.
[2025-03-03] MEDS: HYDROcodone/acetaminophen (*CRX) 5-325 MG TABLET 1 TAB PO (17:41)
--- NOTE | 2025-03-03 17:59 | P.PNIM_ITS ---
Progress Note: A&P Assessment and Plan (1) Volume overload: Qualifiers: Hypervolemia type: unspecified Qualified Code(s): E87.70 - Fluid overload, unspecified Code(s): E87.70 - Fluid overload, unspecified Status: Acute Assessment and Plan: * Chest x-ray showing bilateral small pleural effusions right greater than left with opacities in the right lung base which could represent pneumonia * Abdomen/pelvis CT shown anasarca with very small left and small to moderate- sized right pleural effusion, moderate amount of ascites and prominent body wall and less severe mesenteric and retroperitoneal edema, increased mild ground-glass opacity in the lingula which could represent pneumonia, a few tiny nonobstructive renal stones without hydronephrosis or obstruction, infrarenal IVC filter in place * ECHO from 02/14 EF 65-70% * Continue holding [facility] following (2) Ascites: Qualifiers: Ascites type: other type Qualified Code(s): R18.8 - Other ascites Code(s): R18.8 - Other ascites Status: Acute Assessment and Plan: Peritoneal fluid positive for GPC in clusters continue Cefepime f/u cultures (3) Cirrhosis: Qualifiers: Hepatic cirrhosis type: unspecified hepatic cirrhosis Ascites presence: with ascites Qualified Code(s): K74.60 - Unspecified cirrhosis of liver; R18.8 - Other ascites Code(s): K74.60 - Unspecified cirrhosis of liver Status: Acute Assessment and Plan: * Total bili initially 2.8 now up to 3.1 * Alkaline phosphate 278> 221 * Ammonia 42 on admission, now down to less than 9 * UA showed 1+ urine bilirubin * GI following and recommending Midodrine and Octreotide infusion for hepatorenal syndrome * Continue Albumin per GI recommendation * Unable to get a true MELD score due to supratherapeutic INR * Underwent paracentesis and removed 5 L * Pending fluid analysis (4) Supratherapeutic INR: Code(s): R79.1 - Abnormal coagulation profile Status: Acute Assessment and Plan: * Initial INR 7.6 now down to 2.2 * Underwent thoracentesis and removed 5 L * Xarelto stopped and he will need therapeutic Lovenox per GI recommendation as the only option for anticoagulation considering his liver failure. * s/p vitamin K today and repeat INR * Continue to trend (5) Acute kidney injury: Code(s): N17.9 - Acute kidney failure, unspecified Status: Acute Assessment and Plan: * ?Hepatorenal syndrome * Cr 3.62 from 2.82 * Baseline creatinine appears to be 1.13-1.17, EGFR 60 to greater than 60 * Abdomen/pelvis CT showed a few tiny nonobstructing renal stones without hydronephrosis * Protein/creatinine ratio 1.38 * Rare urine eosinophils noted on UA * Nephrology following * Continue to trend (6) Pneumonia: Qualifiers: Pneumonia type: due to unspecified organism Laterality: unspecified laterality Lung location: unspecified part of lung Qualified Code(s): J18.9 - Pneumonia, unspecified organism Code(s): J18.9 - Pneumonia, unspecified organism Status: Suspected Assessment and Plan: * Chest x-ray showing small bilateral small pleural effusion right greater than left with opacities at the right lung base which could represent pneumonia * Abdomen/pelvis CT showed a increase mild ground-glass opacity in the lingula which could represent pneumonia * Patient was started on cefepime, vancomycin, azithromycin * s/p Vanc as MRSA negative, completed Azithromycin ' * Continue Cefepime (7) Urinary tract infection: Qualifiers: Hematuria presence: without hematuria Urinary tract infection type: a cute cystitis Qualified Code(s): N30.00 - Acute cystitis without hematuria Code(s): N39.0 - Urinary tract infection, site not specified Status: Acute Assessment and Plan: * UA shown brown urine color, turbid appearance, 1+ protein, 1+ urine blood, 1+ urine bilirubin, 2+ leukocyte, greater than 100 urine RBC, 21-50 urine WBC, 3- 5 urine casts, rare urine eosinophils. * Urine culture was obtained and pending * Continue cefepime (8) Chronic anemia: Code(s): D64.9 - Anemia, unspecified Status: Chronic Assessment and Plan: Likely secondary to cirrhosis of the liver and chronic kidney disease, chronic * Hemoglobin 8.5, MCV 102.4 * Anemia workup in the past showed normal iron, ferritin, vitamin B12, folate * TSH was elevated to 12.800 on 02/14/2025 * Will recheck TSH, T3, free T4 (9) Hypertension: Qualifiers: Hypertension type: primary hypertension Qualified Code(s): I10 - Essential (primary) hypertension Code(s): I10 - Essential (primary) hypertension Status: Chronic Assessment and Plan: * Blood pressure ranging 104/65 to 110/70 * Patient is not currently on any home medications for hypertension * Continue to trend (10) CHEO (obstructive sleep apnea): Code(s): G47.33 - Obstructive sleep apnea (adult) (pediatric) Status: Chronic Assessment and Plan: * Continue CPAP (11) Atrial fibrillation: Qualifiers: Atrial fibrillation type: paroxysmal Qualified Code(s): I48.0 - Paroxysmal atrial fibrillation Code(s): I48.91 - Unspecified atrial fibrillation Status: Chronic Assessment and Plan: * Patient initially in AFib RVR on arrival to the ED * EKG showing AFib with a rate of 87, QTC 524, right bundle branch block, left posterior fascicular block * Xarelto stopped--Will need therapeutic Lovenox when appropriate as this is the only anticoagulation recommended with liver failure. * Continue metoprolol extended release 50 mg p.o. daily * Continue cardiac monitoring (12) Hypothyroidism: Code(s): E03.9 - Hypothyroidism, unspecified Status: Acute Assessment and Plan: * Continue Synthroid * TSH adn T4 elevated * hold levothyroxine * monitor thyroid studies Plan DVT prophylaxis on SCDs, no AC due to liver failure Subjective Date/time seen: 03/03/25 17:59 Interval history: Comfortable at bedside Review of Systems Review of Systems: All systems reviewed & are unremarkable except as noted in HPI and below Exam Narrative: General: In no acute distress, well nourished Head: atraumatic, no encephalopathy Eyes: PERRLA, sclera clear ENT: moist mucous membranes, nasal passages clear Neck: supple, no JVD, no adenopathy, trachea midline Cardiac: Normal S1 and S2. No murmur, gallops or friction rubs, peripheral pulses intact. Respiratory: Bilateral crackles in bases, no adventitious lung sounds, currently on room air Gastrointestinal: firm, taunt, non-tender, normoactive bowel sounds. Anasarca present : voiding without difficulty. Extremities: moves all extremities well, 2+ pitting edema BLE Skin: clean, dry, intact. No wounds or lesions. Neuro: Alert and oriented x4, cranial nerves intact, no neuro deficits. Psych: normal mood, normal affect, interactive Const: General: comfortable and no acute distress Other: , male, nontoxic appearance, chronically ill-appearing HENMT: Face/Nose/Sinus: Normal nares present Mouth: Yes moist mucous membranes Eyes: General: appearance normal, both eyes and all related structures Sclera: sclerae normal Pupils: Equal, round and reactive pupils present EOM: EOMs intact bilaterally Resp: Effort & Inspection: normal respiratory effort Other: Bibasilar rales. Cardio: Rate: regular rate Rhythm: regular rhythm Other: S1-S2 present without murmur, rub, ectopy GI: Other: rounded abdomen, slight fluid wave with palpation. No tenderness with palpation. Normoactive bowel sounds in all quadrants. : Other: External catheter in place, T colored output. Neuro: Cranial nerves: Yes Equal, round and reactive pupils present Speech: normal speech Motor exam (neuro): 5/5 motor strength present throughout Sensory Exam: normal sensation Other: A&O x4 Extrem: Other: 3+ pitting edema starting at upper thigh s to ankles bilaterally, R>L. Psych: Mental Status: mental status grossly normal Affect: normal affect Other: Good insight and judgment, pleasant. Objective Data Vital Signs Vital Signs: Vital Signs - 24 hr 03/02/25 18:00 03/02/25 19:42 03/02/25 20:00 Temperature 97.5 F L Pulse Rate 66 69 Respiratory Rate 18 Blood Pressure 96/56 L Pulse Oximetry 99 Oxygen Delivery Room Air 03/02/25 20:00 03/02/25 22:00 03/03/25 00:00 Temperature Pulse Rate 66 69 Respiratory Rate Blood Pressure Pulse Oximetry Oxygen Delivery Room Air 03/03/25 00:00 03/03/25 00:00 03/03/25 02:00 Temperature 98.7 F Pulse Rate 65 69 67 Respiratory Rate 18 Blood Pressure 131/94 H Pulse Oximetry 95 Oxygen Delivery 03/03/25 03:33 03/03/25 04:00 03/03/25 04:00 Temperature Pulse Rate 76 75 Respiratory Rate Blood Pressure 97/56 L Pulse Oximetry 96 Oxygen Delivery Room Air 03/03/25 06:00 03/03/25 07:40 03/03/25 08:00 Temperature 97.6 F Pulse Rate 73 79 70 Respiratory Rate 18 Blood Pressure 109/64 Pulse Oximetry 99 Oxygen Delivery 03/03/25 08:00 03/03/25 09:42 03/03/25 10:00 Temperature Pulse Rate 87 73 Respiratory Rate Blood Pressure Pulse Oximetry 99 Oxygen Delivery Room Air 03/03/25 11:40 03/03/25 11:40 03/03/25 12:00 Temperature 97.6 F Pulse Rate 67 68 Respiratory Rate 16 Blood Pressure 102/65 Pulse Oximetry 67 L 97 Oxygen Delivery 03/03/25 12:00 03/03/25 14:00 03/03/25 16:00 Temperature 97.3 F L Pulse Rate 81 66 Respiratory Rate 18 Blood Pressure 100/61 Pulse Oximetry 100 Oxygen Delivery Room Air Intake/Output Intake/Output: Intake & Output 02/28/25 03/01/25 03/02/25 03/03/25 23:59 23:59 23:59 23:59 Intake Total 975.5 1811.5 670.3 1983.8 Output Total 231 716 8925 175 Balance 375.5 1311.5 -4479.7 1808.8 Meds/Results Medications: Active Medications Generic Name Dose Route Start Last Admin Trade Name Freq PRN Reason Stop Dose Admin Acetaminophen 325 mg 02/27/25 16:47 Acetaminophen 325 Mg Tablet PO Q6H PRN Mild Pain (1-3) or Fever Hydrocodone Bitart/Acetaminophen 1 tab 03/03/25 16:51 03/03/25 17:41 Hydrocodone/Acetaminophen (*Crx) 5-325 Mg Tablet PO 1 tab Q6H PRN Administration Pain Rated 7-10 Azithromycin 500 mg 02/28/25 10:00 03/03/25 09:41 Azithromycin 250 Mg Tablet PO 03/03/25 23:59 500 mg DAILY PABLO Administration Benzonatate 100 mg 02/27/25 16:47 02/27/25 21:12 Benzonatate 100 Mg Capsule PO 100 mg TID PRN Administration Cough Folic Acid 1 mg 02/28/25 09:00 03/03/25 09:42 Folic Acid 1 Mg Tablet PO 1 mg QAM PABLO Administration Guaifenesin 600 mg 02/27/25 16:47 02/27/25 21:12 Guaifenesin 12 Hr 600 Mg Tabcr PO 600 mg Q12HR PRN Administration Congestion Cefepime HCl 1 gm in 50 mls @ 100 mls/hr 02/28/25 06:00 03/03/25 17:41 Maxipime 1 Gm/Ns 50 Ml IVPB 03/06/25 23:59 100 mls/hr Q12H PABLO Administration Octreotide Acetate 500 mcg/ 100 mls @ 10 mls/hr 02/28/25 11:45 03/03/25 15:23 Sodium Chloride IV CONT 50 mcg/hr .Q10H PABLO 10 mls/hr Administration 50 MCG/HR Levothyroxine Sodium 75 mcg 02/28/25 06:30 03/03/25 05:50 Levothyroxine Sodium 75 Mcg Tablet PO 75 mcg DAILY@0630 PABLO Administration Magnesium Oxide 400 mg 02/28/25 09:00 03/03/25 17:41 Magnesium Oxide 400 Mg Tablet PO 400 mg BID PABLO Administration Metoprolol Succinate 50 mg 02/28/25 09:00 03/03/25 09:42 Metoprolol Succinate Ext Rel 50 Mg Tabcr PO 50 mg DAILY PABLO Administration Multivitamins Therapeutic 1 tablet 02/27/25 22:25 03/02/25 21:00 Multivitamins Therapeutic Tab (*Bkc) PO 1 tablet QHS PABLO Administration Oxybutynin Chloride 5 mg 03/03/25 15:09 03/03/25 15:23 Oxybutynin Chloride 5 Mg Tablet PO 5 mg BID PRN Administration spasm Tamsulosin HCl 0.4 mg 02/28/25 09:00 03/03/25 09:42 Tamsulosin Hcl 0.4 Mg Capsule PO 0.4 mg QAM PABLO Administration Vitamin D 5,000 units 02/28/25 09:00 03/03/25 09:42 Cholecalciferol 5,000 Units Tablet BY MOUTH 5,000 units DAILY PABLO Administration Radiology Results: ITS Impressions Chest X-Ray 02/27/25 13:59 IMPRESSION: 1. No significant interval change in bilateral small pleural effusions, right greater than left with opacities at the right lung base which could represent associated atelectasis and/or pneumonia. Paracentesis Ultrasound 03/02/25 14:08 IMPRESSION: 1. Successful ultrasound-guided paracentesis yielding 5000 mL of francisco javier-colored fluid. Abdomen/Pelvis CT 03/03/25 12:23 Impression: Majano catheter in satisfactory position within urinary bladder. Moderate to large right pleural effusion and small left pleural effusion with bibasilar atelectasis, right worse than left. Small bilateral nonobstructing renal stones. No hydronephrosis or ureteral stone. Bilateral ureteral stents. Possible mild cirrhotic change of liver. Moderate abdominopelvic ascites. Labs Labs: Laboratory Results - last 24 hr 03/03/25 04:04 WBC 6.6 RBC 2.54 L Hgb 8.7 L Hct 26.9 L MCV 105.9 H MCH 34.3 H MCHC 32.3 RDW 15.5 H Plt Count 163 MPV 10.6 H Immature Gran % (Auto) 0.3 Neut % (Auto) 72.3 Lymph % (Auto) 14.5 L [place] % (Auto) 6.7 Eos % (Auto) 5.0 H Baso % (Auto) 1.2 Lymph # (Auto) 0.95 [place] # (Auto) 0.4 Eos # (Auto) 0.3 Baso # (Auto) 0.1 Abs Immat Gran (auto) 0.02 Absolute Neuts (auto) 4.7 Absolute Nucleated RBC 0.000 Band Neutrophils % Not Reportable Nucleated RBC % 0.0 Platelet Estimate Adequate Hypochromasia 1+ Anisocytosis 1+ Ovalocytes 1+ Schistocytes Rare PT 25.1 H INR 2.2 Sodium 132 L Potassium 3.9 Chloride 99 Carbon Dioxide 23 Anion Gap 10 BUN 52 H Creatinine 3.62 H Estim Creat Clear Calc 18 Estimated GFR 16 L Glucose 128 H Calcium 7.8 L Phosphorus 4.5 Magnesium 2.1 Total Bilirubin 1.8 H AST 37 ALT 18 Alkaline Phosphatase 199 H Total Protein 5.0 L Albumin 2.6 L Quality VTE Prophylaxis VTE prophylaxis: mechanical ordered
[2025-03-03] MEDS: MULTIVITAMINS THERAPEUTIC TAB (*BKC) 1 TABLET PO (20:47)
[2025-03-03] MEDS: oxyCODONE HCL (*CRX) 5 MG TAB IR 2.5 MG PO (20:47)
[2025-03-04] VITALS (18 sets, daily range): BP systolic 82–94; BP diastolic 50–58; PULSE 62–105; RESP 16–20; TEMP 36.1–36.9; O2SAT 97–100
[2025-03-04] MEDS: OCTREOTIDE ACETATE 500 MCG in SODIUM CHLORIDE 0.9% IV 99 ML 10 MCG IV CONT (01:12)
[2025-03-04 04:29] LABS: Basophils Absolute Auto 0.1 K/mm3 (0.0-0.1); Basophils Percent Auto 1.1 % (0.2-1.2); Eosinophils Absolute Auto 0.3 K/mm3 (0-0.3); Eosinophils Percent Auto 4.6 % (0-4.4); Hematocrit 25.5 % (42.0-52.0); Hemoglobin 8.6 g/dL (14.0-18.0); Immature Granulocyte Absolute 0.02 K/mm3 (0.00-0.031); Immature Granulocyte Percent A 0.3 % (0-0.5); Lymphocytes Absolute Auto 1.24 K/mm3 (0.9-3.2); Lymphocytes Percent Auto 19.1 % (18.3-44.2); Mean Corpuscular HGB Conc 33.7 g/dl (32-36); Mean Corpuscular Hemoglobin 34.1 pg (26-34); Mean Corpuscular Volume 101.2 fl (80-100); Mean Platelet Volume 10.4 fl (7.4-10.4); Monocytes Absolute Auto 0.5 K/mm3 (0.1-0.6); Monocytes Percent Auto 6.9 % (2.6-8.5); Neutrophils Absolute Auto 4.4 K/mm3 (1.3-6.7); Platelet Count Result 154 k/mm3 (150-375); Red Blood Count 2.52 M/mm3 (4.6-6.20); Red Cell Distribution Width 15.5 % (11.5-14.5); White Blood Count 6.5 K/mm3 (4.5-10.0)
[2025-03-04 04:42] LABS: Lactic Acid Reflex 1.1 mmol/L (0.7-2.0)
[2025-03-04 04:45] LABS: INR 2.2; Prothrombin Time 24.6 Seconds (11.1-14.7)
[2025-03-04 04:46] LABS: Alanine Aminotransferase 17 U/L (6-50); Albumin Level 2.5 g/dL (3.5-5.1); Alkaline Phosphatase 199 U/L (38-126); Anion Gap 8 mmol/L (4-12); Aspartate Amino Transferase 42 U/L (17-59); Bilirubin,Total 1.8 mg/dL (0.2-1.3); Blood Urea Nitrogen 53 mg/dL (9-20); Calcium 7.7 mg/dL (8.4-10.2); Carbon Dioxide 23 mmol/L (22-30); Chloride 99 mmol/L (98-107); Estimated CRCL calculation 16 ml/min; Estimated Glomerular Filt Rate 15; Glucose 119 mg/dL (65-110); Magnesium 2.1 mg/dL (1.6-2.3); Phosphorus 4.8 mg/dL (2.5-4.5); Sodium 130 mmol/L (137-145)
[2025-03-04] MEDS: CEFEPIME 1 GM/NS 50 ML 1 GM/50 ML BAG IVPB ×2 (05:57→17:41)
[2025-03-04 06:03] LABS: Folic Acid > 20.0 ng/mL (2.76->20); Vitamin B12 > 1000.0 pg/mL (239-931)
[2025-03-04] MEDS: CHOLECALCIFEROL 5,000 UNITS TABLET 5000 UNITS BY MOUTH (08:39)
[2025-03-04] MEDS: MAGNESIUM OXIDE 400 MG TABLET PO ×2 (08:39→17:41)
[2025-03-04] MEDS: TAMSULOSIN HCL 0.4 MG CAPSULE PO (08:41)
[2025-03-04] MEDS: FOLIC ACID 1 MG TABLET PO (08:41)
--- NOTE | 2025-03-04 09:54 | WPDGIPROGNO ---
Progress Note: A&P Assessment and Plan (1) Cirrhosis: Qualifiers: Ascites presence: with ascites Hepatic cirrhosis type: unspecified hepatic cirrhosis Qualified Code(s): K74.60 - Unspecified cirrhosis of liver; R18.8 - Other ascites Code(s): K74.60 - Unspecified cirrhosis of liver Status: Acute (2) Ascites: Qualifiers: Ascites type: other type Qualified Code(s): R18.8 - Other ascites Code(s): R18.8 - Other ascites Status: Acute (3) Spontaneous bacterial peritonitis: Code(s): K65.2 - Spontaneous bacterial peritonitis Status: Acute Assessment and Plan: The patient presents with poor general status and new-onset bacterial growth in ascitic fluid, preliminary identification as staphylococci. While initial ascitic fluid analysis did not demonstrate increased PMNs , broad-spectrum antibiotics have been started. . Spontaneous Bacterial Peritonitis is a contributing factor to his declining renal function. Final culture and sensitivity results are pending to guide antibiotic adjustments. He should continue to receive albumin (20-40 mg daily). Paracentesis should be performed as needed according to patient's discomfort, since it is the only option to manage ascites (diuretics are contraindicated as discussed). Of significant concern is the patient's poor prognosis due to a lack of response to the hepatorenal syndrome regimen of midodrine and octreotide, evidenced by an increasing creatinine level.. Given this clinical picture, a discussion regarding long-term dialysis options and the patient's preferences should be initiated. Subjective Date/time seen: 03/04/25 09:54 Interval history: The patient is not complaining of any new symptoms. ascitic fluid culture is growing Gram-positive cocci in clusters, patient continues to receive antibiotic coverage. Exam Narrative: Unchanged from yesterday. Objective Data Vital Signs Vital Signs: Vital Signs - 24 hr 03/03/25 10:00 03/03/25 11:40 03/03/25 11:40 Temperature 97.6 F Pulse Rate 73 67 Respiratory Rate 16 Blood Pressure 102/65 Pulse Oximetry 67 L 97 Oxygen Delivery 03/03/25 12:00 03/03/25 12:00 03/03/25 14:00 Temperature Pulse Rate 68 81 Respiratory Rate Blood Pressure Pulse Oximetry Oxygen Delivery Room Air 03/03/25 16:00 03/03/25 16:00 03/03/25 16:00 Temperature 97.3 F L Pulse Rate 66 71 Respiratory Rate 18 Blood Pressure 100/61 Pulse Oximetry 100 100 Oxygen Delivery Room Air 03/03/25 18:00 03/03/25 19:23 03/03/25 20:00 Temperature 98.0 F Pulse Rate 70 74 Respiratory Rate 18 Blood Pressure 92/58 L Pulse Oximetry 97 Oxygen Delivery Room Air 03/03/25 20:00 03/03/25 22:00 03/03/25 23:25 Temperature Pulse Rate 86 76 76 Respiratory Rate 18 Blood Pressure 127/95 H Pulse Oximetry 97 Oxygen Delivery 03/03/25 23:53 03/04/25 00:00 03/04/25 02:00 Temperature Pulse Rate 62 65 Respiratory Rate Blood Pressure Pulse Oximetry Oxygen Delivery Room Air 03/04/25 03:35 03/04/25 03:39 03/04/25 04:00 Temperature 97.7 F Pulse Rate 66 69 Respiratory Rate 17 Blood Pressure 94/56 L Pulse Oximetry 100 Oxygen Delivery Room Air 03/04/25 06:00 03/04/25 07:35 Temperature 96.9 F L Pulse Rate 79 105 H Respiratory Rate 18 Blood Pressure 92/55 L Pulse Oximetry 99 Oxygen Delivery Intake/Output Intake/Output: Intake & Output 03/01/25 03/02/25 03/03/25 03/04/25 23:59 23:59 23:59 23:59 Intake Total 1811.5 670.3 1983.8 785.2 Output Total 500 5150 175 0 Balance 1311.5 -4479.7 1808.8 785.2 Meds/Results Medications: Active Medications Generic Name Dose Route Start Last Admin Trade Name Freq PRN Reason Stop Dose Admin Acetaminophen 325 mg 02/27/25 16:47 Acetaminophen 325 Mg Tablet PO Q6H PRN Mild Pain (1-3) or Fever Hydrocodone Bitart/Acetaminophen 1 tab 03/03/25 16:51 03/03/25 17:41 Hydrocodone/Acetaminophen (*Crx) 5-325 Mg Tablet PO 1 tab Q6H PRN Administration Pain Rated 7-10 Benzonatate 100 mg 02/27/25 16:47 02/27/25 21:12 Benzonatate 100 Mg Capsule PO 100 mg TID PRN Administration Cough Folic Acid 1 mg 02/28/25 09:00 03/04/25 08:41 Folic Acid 1 Mg Tablet PO 1 mg QAM PABLO Administration Guaifenesin 600 mg 02/27/25 16:47 02/27/25 21:12 Guaifenesin 12 Hr 600 Mg Tabcr PO 600 mg Q12HR PRN Administration Congestion Cefepime HCl 1 gm in 50 mls @ 100 mls/hr 02/28/25 06:00 03/04/25 05:57 Maxipime 1 Gm/Ns 50 Ml IVPB 03/06/25 23:59 100 mls/hr Q12H PABLO Administration Octreotide Acetate 500 mcg/ 100 mls @ 10 mls/hr 02/28/25 11:45 03/04/25 01:12 Sodium Chloride IV CONT 50 mcg/hr .Q10H PABLO 10 mls/hr Administration 50 MCG/HR Levothyroxine Sodium 75 mcg 02/28/25 06:30 03/03/25 05:50 Levothyroxine Sodium 75 Mcg Tablet PO 75 mcg DAILY@0630 PABLO Administration Magnesium Oxide 400 mg 02/28/25 09:00 03/04/25 08:39 Magnesium Oxide 400 Mg Tablet PO 400 mg BID PABLO Administration Metoprolol Succinate 50 mg 02/28/25 09:00 03/03/25 09:42 Metoprolol Succinate Ext Rel 50 Mg Tabcr PO 50 mg DAILY PABLO Administration Multivitamins Therapeutic 1 tablet 02/27/25 22:25 03/03/25 20:47 Multivitamins Therapeutic Tab (*Bkc) PO 1 tablet QHS PABLO Administration Oxybutynin Chloride 5 mg 03/03/25 15:09 03/03/25 15:23 Oxybutynin Chloride 5 Mg Tablet PO 5 mg BID PRN Administration spasm Tamsulosin HCl 0.4 mg 02/28/25 09:00 03/04/25 08:41 Tamsulosin Hcl 0.4 Mg Capsule PO 0.4 mg QAM PABLO Administration Vitamin D 5,000 units 02/28/25 09:00 03/04/25 08:39 Cholecalciferol 5,000 Units Tablet BY MOUTH 5,000 units DAILY PABLO Administration Radiology Results: ITS Impressions Chest X-Ray 02/27/25 13:59 IMPRESSION: 1. No significant interval change in bilateral small pleural effusions, right greater than left with opacities at the right lung base which could represent associated atelectasis and/or pneumonia. Paracentesis Ultrasound 03/02/25 14:08 IMPRESSION: 1. Successful ultrasound-guided paracentesis yielding 5000 mL of francisco javier-colored fluid. Abdomen/Pelvis CT 03/03/25 12:23 Impression: Majano catheter in satisfactory position within urinary bladder. Moderate to large right pleural effusion and small left pleural effusion with bibasilar atelectasis, right worse than left. Small bilateral nonobstructing renal stones. No hydronephrosis or ureteral stone. Bilateral ureteral stents. Possible mild cirrhotic change of liver. Moderate abdominopelvic ascites. Labs Labs: Laboratory Results - last 24 hr 03/04/25 03:54 WBC 6.5 RBC 2.52 L Hgb 8.6 L Hct 25.5 L MCV 101.2 H MCH 34.1 H MCHC 33.7 RDW 15.5 H Plt Count 154 MPV 10.4 Immature Gran % (Auto) 0.3 Neut % (Auto) 68.0 Lymph % (Auto) 19.1 [place] % (Auto) 6.9 Eos % (Auto) 4.6 H Baso % (Auto) 1.1 Lymph # (Auto) 1.24 [place] # (Auto) 0.5 Eos # (Auto) 0.3 Baso # (Auto) 0.1 Abs Immat Gran (auto) 0.02 Absolute Neuts (auto) 4.4 Absolute Nucleated RBC 0.000 Nucleated RBC % 0.0 PT 24.6 H INR 2.2 Sodium 130 L Potassium 4.0 Chloride 99 Carbon Dioxide 23 Anion Gap 8 BUN 53 H Creatinine 3.89 H Estim Creat Clear Calc 16 Estimated GFR 15 L Glucose 119 H Lactic Acid 1.1 Calcium 7.7 L Phosphorus 4.8 H Magnesium 2.1 Total Bilirubin 1.8 H AST 42 ALT 17 Alkaline Phosphatase 199 H Total Protein 5.0 L Albumin 2.5 L Vitamin B12 > 1000.0 H Folate > 20.0 H
[2025-03-04] MEDS: ALBUMIN HUMAN 25% 25 GM/100 ML 100 ML IVPB (13:01)
--- NOTE | 2025-03-04 13:45 | P.PNNP_ITS ---
Progress Note: A&P Assessment and Plan (1) Acute kidney injury: Code(s): N17.9 - Acute kidney failure, unspecified Status: Acute Assessment and Plan: * continue to worsen/deteriorate... * trend of creatinine is as noted * had been running ~ 1.1 - 1.5mg/l since 2020 * averaging ~ 1.1 - 1.3mg/dl in 2022 - 2023 * creatinine up to 2.0mg/dl in November 2024 * hospitalized in early January 2025 for LISA with creatinine of 3.6mg/dl secondary to obstructive uropathy -- bilateral ureteric stones with bilateral hydronephrotic changes present and had bilateral ureteral stents placed with creatinine of 1.13mg/dl at discharge * noted creatinine of 1.41mg/dl on 02/03/25 (outpatient labs) * creatinine ~ 2.0mg/dl on discharge in early February 2025 (02/19/25) * admission creatinine 2.82mg/dl * evaluation on previous and this hospitalization noted: * 2+ protein and 3+ blood on UA (due to stents?) * urine eosinophils negative previously; rare on this admission * 1300mg of proteinuria * urine electrolytes prerenal * CT A/P without obstruction but evidence of volume overload * suspect fluctuating/worsening creatinine/renal function is a manifestation of his liver disease/physiology: * decreased effective circulating volume leading to chronic prerenal azotemia worsened by his need for diuretic therapy in an effort to maintain stability his volume status... * beginnings of or transition to hepatorenal syndrome is of concern - no response to midodrine and octreotide to date.... * follow trend of renal function and UOP (2) Stage 3b chronic kidney disease: Code(s): N18.32 - Chronic kidney disease, stage 3b Status: Chronic Assessment and Plan: * as apparent on last hospitalization * creatinine seems to stabilize around 2ish range * see #1 (3) Volume overload: Qualifiers: Hypervolemia type: unspecified Qualified Code(s): E87.70 - Fluid overload, unspecified Code(s): E87.70 - Fluid overload, unspecified Status: Acute Assessment and Plan: * noted anasarca on admission * due to LISA, CKD, CHF, liver disease or combo of all... * evaluation noted: * Echo noted - EF 65-70%, indeterminate diastolic function, mild-mod aortic insufficiency, and moderate pulmonary HTN * RUQ US showing fatty infiltration of the liver with a possible nodular contour and ascites * coagulopathy noted * hypoalbuminemia noted as well * suspect liver cirrhosis major component with regard to fluid status * attempted IV albumin chased by IV diuretics but hemodynamics will not tolerate * s/p large volume paracentesis on 03/02 * suspect will need to repeat soon... (4) Pneumonia: Qualifiers: Laterality: unspecified laterality Lung location: unspecified part of lung Pneumonia type: due to unspecified organism Qualified Code(s): J18.9 - Pneumonia, unspecified organism Code(s): J18.9 - Pneumonia, unspecified organism Status: Suspected Assessment and Plan: * Chest x-ray showing small bilateral small pleural effusion right greater than left with opacities at the right lung base which could represent pneumonia * Abdomen/pelvis CT showed a increase mild ground-glass opacity in the lingula which could represent pneumonia * follow culture data * on antibiotics (5) Cirrhosis: Qualifiers: Ascites presence: with ascites Hepatic cirrhosis type: unspecified hepatic cirrhosis Qualified Code(s): K74.60 - Unspecified cirrhosis of liver; R18.8 - Other ascites Code(s): K74.60 - Unspecified cirrhosis of liver Status: Acute Assessment and Plan: * noted by imaging studies to date * history of heavy alcohol use in the past * also on amiodarone for an extensive period of time * hepatitis panel negative * GI following as well (6) Ascites: Qualifiers: Ascites type: other type Qualified Code(s): R18.8 - Other ascites Code(s): R18.8 - Other ascites Status: Acute Assessment and Plan: * presumably secondary to liver cirrhosis * last paracentesis done on (02/16): * removal of 2650mL of fluid * s/p large volume paracentesis on 03/02 * gram stain noted * culture pending (7) Coagulopathy: Code(s): D68.9 - Coagulation defect, unspecified Status: Acute Assessment and Plan: * slow improvement if not stable * INR 7.6 on admission * Xarelto on hold * Vitamin K given * follow trend (8) Anemia: Qualifiers: Anemia type: unspecified type Qualified Code(s): D64.9 - Anemia, unspecified Code(s): D64.9 - Anemia, unspecified Status: Chronic Assessment and Plan: * chronic issue * probably due to liver disease, LISA, and CKD along with acute illness * follows with Hem/Onc * evaluation noted: * B12/folate normal by last hospitalization * anemia studies (from Nov 2024) with adequate iron stores * follow trend of H/H (9) Atrial fibrillation: Qualifiers: Atrial fibrillation type: paroxysmal Qualified Code(s): I48.0 - Paroxysmal atrial fibrillation Code(s): I48.91 - Unspecified atrial fibrillation Status: Chronic Assessment and Plan: * rate control strategy * holding xarelto given elevated INR * Echo noted (10) Kidney stones: Code(s): N20.0 - Calculus of kidney Status: Acute Assessment and Plan: * noted history of bilateral ureteric stones with bilateral hydronephrotic changes by CT scan (early January 2025) * s/p cystoscopy, bilateral retrogrades, bilateral ureteroscopy with stone extraction, and bilateral ureteral stent placement (on 01/20/25) by Urology. * imaging this admission showing resolution of the hydronephrosis * will need Urology follow-up regarding stent removal Long extensive discussion with the patient's son (> 20 minutes) by phone regarding his worsening renal function and decline in urine output and the likelihood that he will probably require renal replacement therapy/dialysis fairly soon. However, it was also discussed in detail with the patient's son the concerns I have in terms of how the patient would tolerate hemodialysis given his multitude of medical issues including his chronic hypotension complicated by his liver cirrhosis which is likely the main culprit for his decline in renal function. Unfortunately, although dialysis will do what his kidneys are not, it will not change the underlying fact that his liver cirrhosis is the main problem and will likely to continue to progress making him more prone to hypotension and recurrent ascites requiring frequent paracentesis is to optimize his fluid status as dialysis will not remove the fluid that accumulated his abdomen. Furthermore, I discussed of possible complications of dialysis including recurrent anemia and more susceptibility to infection along my concerns that I am unclear if the patient would tolerate such interventions given his physical deconditioning as already noted. The patient's son appeared to voice understanding and he will discuss the situation with his father and more detail to to determine goals of therapy and the plan of care given these issues. Will continue to follow. L Subjective Date/time seen: 03/04/25 13:45 Interval history: Follow-up for acute kidney/acute renal failure on chronic kidney disease. Renal function/creatinine continues to deteriorate as noted by trend of labs with ongoing decline in urine output based on I/Os; evidence of SBP based on fluid gram stain from ascites (already on antibiotics); breathing seems better following large volume paracentesis; no other acute complaints voiced at the time of my visit. Exam 2 Narrative: General: elderly and chronically ill-appearing male in NAD Heart: IRRR, normal S1 and S2; no rub Lungs: clear anteriorly; decreased at bases Abdomen: soft, nontender, mild distension with + fluid wave, positive bowel sounds Extremities: no cyanosis or clubbing; 2 - 3+ edema Skin: no nodules Objective Data Vital Signs Vital Signs: Vital Signs Temp Pulse Resp BP Pulse Ox O2 Del Method 03/04/25 12:00 97.9 F 65 16 84/53 L 98 Room Air 03/04/25 11:47 97.6 F 80 20 88/55 L 97 03/04/25 10:00 74 03/04/25 08:00 83 03/04/25 08:00 99 Room Air 03/04/25 07:35 96.9 F L 105 H 18 92/55 L 99 03/04/25 06:00 79 03/04/25 04:00 69 03/04/25 03:39 Room Air 03/04/25 03:35 97.7 F 66 17 94/56 L 100 03/04/25 02:00 65 03/04/25 00:00 62 03/03/25 23:53 Room Air 03/03/25 23:25 76 18 127/95 H 97 03/03/25 22:00 76 03/03/25 20:00 86 03/03/25 20:00 Room Air 03/03/25 19:23 98.0 F 74 18 92/58 L 97 03/03/25 18:00 70 Intake/Output Intake/Output: Intake & Output 03/01/25 03/02/25 03/03/25 03/04/25 23:59 23:59 23:59 23:59 Intake Total 1811.5 670.3 1983.8 1496.2 Output Total 500 5150 175 0 Balance 1311.5 -4479.7 1808.8 1496.2 Meds/Results Medications: Active Medications Generic Name Dose Route Start Last Admin Trade Name Freq PRN Reason Stop Dose Admin Acetaminophen 325 mg 02/27/25 16:47 Acetaminophen 325 Mg Tablet PO Q6H PRN Mild Pain (1-3) or Fever Hydrocodone Bitart/Acetaminophen 1 tab 03/03/25 16:51 03/03/25 17:41 Hydrocodone/Acetaminophen (*Crx) 5-325 Mg Tablet PO 1 tab Q6H PRN Administration Pain Rated 7-10 Benzonatate 100 mg 02/27/25 16:47 02/27/25 21:12 Benzonatate 100 Mg Capsule PO 100 mg TID PRN Administration Cough Enoxaparin Sodium 30 mg 03/05/25 09:00 Enoxaparin 30 Mg/0.3 Ml Syringe SUB-Q DAILY PABLO Folic Acid 1 mg 02/28/25 09:00 03/04/25 08:41 Folic Acid 1 Mg Tablet PO 1 mg QAM PABLO Administration Guaifenesin 600 mg 02/27/25 16:47 02/27/25 21:12 Guaifenesin 12 Hr 600 Mg Tabcr PO 600 mg Q12HR PRN Administration Congestion Cefepime HCl 1 gm in 50 mls @ 100 mls/hr 02/28/25 06:00 03/04/25 05:57 Maxipime 1 Gm/Ns 50 Ml IVPB 03/06/25 23:59 100 mls/hr Q12H PABLO Administration Albumin Human 100 mls @ 60 mls/hr 03/04/25 12:05 03/04/25 13:01 Albutein IVPB 60 mls/hr Q12H PABLO Administration Vancomycin HCl 1,500 mg in 500 mls @ 250 mls/hr 03/04/25 15:11 Vancomycin 1,500 Mg/Ns 500 Ml IVPB 03/04/25 17:10 ONCE ONE Levothyroxine Sodium 75 mcg 02/28/25 06:30 03/03/25 05:50 Levothyroxine Sodium 75 Mcg Tablet PO 75 mcg DAILY@0630 PABLO Administration Magnesium Oxide 400 mg 02/28/25 09:00 03/04/25 08:39 Magnesium Oxide 400 Mg Tablet PO 400 mg BID PABLO Administration Metoprolol Succinate 50 mg 02/28/25 09:00 03/04/25 09:00 Metoprolol Succinate Ext Rel 50 Mg Tabcr PO Not Given DAILY PABLO Multivitamins Therapeutic 1 tablet 02/27/25 22:25 03/03/25 20:47 Multivitamins Therapeutic Tab (*Bkc) PO 1 tablet QHS PABLO Administration Oxybutynin Chloride 5 mg 03/03/25 15:09 03/03/25 15:23 Oxybutynin Chloride 5 Mg Tablet PO 5 mg BID PRN Administration spasm Tamsulosin HCl 0.4 mg 02/28/25 09:00 03/04/25 08:41 Tamsulosin Hcl 0.4 Mg Capsule PO 0.4 mg QAM PABLO Administration Vancomycin HCl 1 each 03/04/25 15:00 1st Dose Sent To Floor IVPB PER PROTOCOL PABLO Vancomycin HCl 1 each 03/04/25 15:11 Vancomycin For Acute Kidney Injury IVPB PRN PRN Vancomycin Protocol Vitamin D 5,000 units 02/28/25 09:00 03/04/25 08:39 Cholecalciferol 5,000 Units Tablet BY MOUTH 5,000 units DAILY PABLO Administration Radiology Results: ITS Impressions Chest X-Ray 02/27/25 13:59 IMPRESSION: 1. No significant interval change in bilateral small pleural effusions, right greater than left with opacities at the right lung base which could represent associated atelectasis and/or pneumonia. Paracentesis Ultrasound 03/02/25 14:08 IMPRESSION: 1. Successful ultrasound-guided paracentesis yielding 5000 mL of francisco javier-colored fluid. Abdomen/Pelvis CT 03/03/25 12:23 Impression: Majano catheter in satisfactory position within urinary bladder. Moderate to large right pleural effusion and small left pleural effusion with bibasilar atelectasis, right worse than left. Small bilateral nonobstructing renal stones. No hydronephrosis or ureteral stone. Bilateral ureteral stents. Possible mild cirrhotic change of liver. Moderate abdominopelvic ascites. Thyroid Ultrasound 03/04/25 11:46 IMPRESSION: Coarse heterogeneous echogenicity detected diffusely throughout the entirety of the thyroid gland, without increased vascularity to suggest thyroiditis. Benign subcentimeter cysts (TR 1) detected bilaterally for which no further follow-up is needed. In a patient with elevated TSH and elevated free T4, the suggestion of a possible pituitary gland disorder would be more common than inherent thyroid disease. Labs Labs: Laboratory Tests 03/04/25 03:54 03/04/25 03:54 PT 24.6 H INR 2.2 Lactic Acid 1.1 Calcium 7.7 L Phosphorus 4.8 H Magnesium 2.1 Total Bilirubin 1.8 H AST 42 ALT 17 Alkaline Phosphatase 199 H Total Protein 5.0 L Albumin 2.5 L Vitamin B12 > 1000.0 H Folate > 20.0 H Microbiology 03/02/25 13:28 Abdominal Fluid Anaerobic Culture - Preliminary 03/02/25 13:28 Abdominal Fluid Aerobic Culture - Preliminary 03/02/25 13:28 Ascites Fluid Anaerobic Culture - Preliminary 03/02/25 13:28 Ascites Fluid Aerobic Culture - Preliminary
--- NOTE | 2025-03-04 14:56 | P.PNIM_ITS ---
Progress Note: A&P Assessment and Plan (1) Volume overload: Qualifiers: Hypervolemia type: unspecified Qualified Code(s): E87.70 - Fluid overload, unspecified Code(s): E87.70 - Fluid overload, unspecified Status: Acute Assessment and Plan: * Chest x-ray showing bilateral small pleural effusions right greater than left with opacities in the right lung base which could represent pneumonia * Abdomen/pelvis CT shown anasarca with very small left and small to moderate- sized right pleural effusion, moderate amount of ascites and prominent body wall and less severe mesenteric and retroperitoneal edema, increased mild ground-glass opacity in the lingula which could represent pneumonia, a few tiny nonobstructive renal stones without hydronephrosis or obstruction, infrarenal IVC filter in place * ECHO from 02/14 EF 65-70% * Continue holding [facility] following (2) Ascites: Qualifiers: Ascites type: other type Qualified Code(s): R18.8 - Other ascites Code(s): R18.8 - Other ascites Status: Acute Assessment and Plan: Peritoneal fluid positive for GPC in clusters continue Cefepime and Vancomycin f/u cultures (3) Cirrhosis: Qualifiers: Hepatic cirrhosis type: unspecified hepatic cirrhosis Ascites presence: with ascites Qualified Code(s): K74.60 - Unspecified cirrhosis of liver; R18.8 - Other ascites Code(s): K74.60 - Unspecified cirrhosis of liver Status: Acute Assessment and Plan: * Total bili initially 2.8 now up to 3.1 * Alkaline phosphate 278> 221 * Ammonia 42 on admission, now down to less than 9 * UA showed 1+ urine bilirubin * GI following and recommending Midodrine and Octreotide infusion for hepatorenal syndrome * Continue Albumin per GI recommendation * Unable to get a true MELD score due to supratherapeutic INR * Underwent paracentesis and removed 5 L * Pending fluid analysis, f/u cultures (4) Supratherapeutic INR: Code(s): R79.1 - Abnormal coagulation profile Status: Acute Assessment and Plan: * Initial INR 7.6 now down to 2.2 * Underwent thoracentesis and removed 5 L * Xarelto stopped and he will need therapeutic Lovenox per GI recommendation as the only option for anticoagulation considering his liver failure. * s/p vitamin K today and repeat INR * Continue to trend (5) Acute kidney injury: Code(s): N17.9 - Acute kidney failure, unspecified Status: Acute Assessment and Plan: * ?Hepatorenal syndrome * Cr 3.62 from 2.82 * Baseline creatinine appears to be 1.13-1.17, EGFR 60 to greater than 60 * Continue Octreotide, Midodrine and Albumin * Nephrology following * Continue to trend (6) Pneumonia: Qualifiers: Pneumonia type: due to unspecified organism Laterality: unspecified laterality Lung location: unspecified part of lung Qualified Code(s): J18.9 - Pneumonia, unspecified organism Code(s): J18.9 - Pneumonia, unspecified organism Status: Suspected Assessment and Plan: * Chest x-ray showing small bilateral small pleural effusion right greater than left with opacities at the right lung base which could represent pneumonia * Abdomen/pelvis CT showed a increase mild ground-glass opacity in the lingula which could represent pneumonia * Patient was started on cefepime, vancomycin, azithromycin * s/p Vanc as MRSA negative, completed Azithromycin ' * Continue Cefepime (7) Urinary tract infection: Qualifiers: Hematuria presence: without hematuria Urinary tract infection type: acute cystitis Qualified Code(s): N30.00 - Acute cystitis without hematuria Code(s): N39.0 - Urinary tract infection, site not specified Status: Acute Assessment and Plan: * UA shown brown urine color, turbid appearance, 1+ protein, 1+ urine blood, 1+ urine bilirubin, 2+ leukocyte, greater than 100 urine RBC, 21-50 urine WBC, 3- 5 urine casts, rare urine eosinophils. * Urine culture was obtained and pending * Continue cefepime (8) Chronic anemia: Code(s): D64.9 - Anemia, unspecified Status: Chronic Assessment and Plan: Likely secondary to cirrhosis of the liver and chronic kidney disease, chronic * Hemoglobin 8.5, MCV 102.4 * Anemia workup in the past showed normal iron, ferritin, vitamin B12, folate * TSH was elevated to 12.800 on 02/14/2025 * Will recheck TSH, T3, free T4 (9) Hypertension: Qualifiers: Hypertension type: primary hypertension Qualified Code(s): I10 - Essential (primary) hypertension Code(s): I10 - Essential (primary) hypertension Status: Chronic Assessment and Plan: * Blood pressure ranging 104/65 to 110/70 * Patient is not currently on any home medications for hypertension * Continue to trend (10) CHEO (obstructive sleep apnea): Code(s): G47.33 - Obstructive sleep apnea (adult) (pediatric) Status: Chronic Assessment and Plan: * Continue CPAP (11) Atrial fibrillation: Qualifiers: Atrial fibrillation type: paroxysmal Qualified Code(s): I48.0 - Paroxysmal atrial fibrillation Code(s): I48.91 - Unspecified atrial fibrillation Status: Chronic Assessment and Plan: * Patient initially in AFib RVR on arrival to the ED * EKG showing AFib with a rate of 87, QTC 524, right bundle branch block, left posterior fascicular block * Xarelto stopped--Will need therapeutic Lovenox when appropriate as this is the only anticoagulation recommended with liver failure. * Holding Metoprolol due to low blood pressure * Continue cardiac monitoring (12) Hypothyroidism: Code(s): E03.9 - Hypothyroidism, unspecified Status: Acute Assessment and Plan: * Continue Synthroid * TSH adn T4 elevated * hold levothyroxine * monitor thyroid studies * US thyroid unremarkable, will discuss MRI with patient Plan Acute urinary retention Urology consulted and rowe was inserted but patient complained of pain and it was removed yesterday passing urine and urology following DVT prophylaxis on Sq Lovenox Subjective Date/time seen: 03/04/25 14:56 Interval history: Patient comfortable at bedside Review of Systems Review of Systems: All systems reviewed & are unremarkable except as noted in HPI and below Exam Narrative: General: In no acute distress, well nourished Head: atraumatic, no encephalopathy Eyes: PERRLA, sclera clear ENT: moist mucous membranes, nasal passages clear Neck: supple, no JVD, no adenopathy, trachea midline Cardiac: Normal S1 and S2. No murmur, gallops or friction rubs, peripheral pulses intact. Respiratory: Bilateral crackles in bases, no adventitious lung sounds, currently on room air Gastrointestinal: firm, taunt, non-tender, normoactive bowel sounds. Anasarca present : voiding without difficulty. Extremities: moves all extremities well, 2+ pitting edema BLE Skin: clean, dry, intact. No wounds or lesions. Neuro: Alert and oriented x4, cranial nerves intact, no neuro deficits. Psych: normal mood, normal affect, interactive Const: General: comfortable and no acute distress Other: , male, nontoxic appearance, chronically ill-appearing HENMT: Face/Nose/Sinus: Normal nares present Mouth: Yes moist mucous membranes Eyes: General: appearance normal, both eyes and all related structures Sclera: sclerae normal Pupils: Equal, round and reactive pupils present EOM: EOMs intact bilaterally Resp: Effort & Inspection: normal respiratory effort Other: Bibasilar rales. Cardio: Rate: regular rate Rhythm: regular rhythm Other: S1-S2 present without murmur, rub, ectopy GI: Other: rounded abdomen, slight fluid wave with palpation. No tenderness with palpation. Normoactive bowel sounds in all quadrants. : Other: External catheter in place, T colored output. Neuro: Cranial nerves: Yes Equal, round and reactive pupils present Speech: normal speech Motor exam (neuro): 5/5 motor strength present throughout Sensory Exam: normal sensation Other: A&O x4 Extrem: Other: 3+ pitting edema starting at upper thigh s to ankles bilaterally, R>L. Psych: Mental Status: mental status grossly normal Affect: normal affect Other: Good insight and judgment, pleasant. Objective Data Vital Signs Vital Signs: Vital Signs - 24 hr 03/03/25 16:00 03/03/25 16:00 03/03/25 16:00 Temperature 97.3 F L Pulse Rate 66 71 Respiratory Rate 18 Blood Pressure 100/61 Pulse Oximetry 100 100 Oxygen Delivery Room Air 03/03/25 18:00 03/03/25 19:23 03/03/25 20:00 Temperature 98.0 F Pulse Rate 70 74 Respiratory Rate 18 Blood Pressure 92/58 L Pulse Oximetry 97 Oxygen Delivery Room Air 03/03/25 20:00 03/03/25 22:00 03/03/25 23:25 Temperature Pulse Rate 86 76 76 Respiratory Rate 18 Blood Pressure 127/95 H Pulse Oximetry 97 Oxygen Delivery 03/03/25 23:53 03/04/25 00:00 03/04/25 02:00 Temperature Pulse Rate 62 65 Respiratory Rate Blood Pressure Pulse Oximetry Oxygen Delivery Room Air 03/04/25 03:35 03/04/25 03:39 03/04/25 04:00 Temperature 97.7 F Pulse Rate 66 69 Respiratory Rate 17 Blood Pressure 94/56 L Pulse Oximetry 100 Oxygen Delivery Room Air 03/04/25 06:00 03/04/25 07:35 03/04/25 08:00 Temperature 96.9 F L Pulse Rate 79 105 H Respiratory Rate 18 Blood Pressure 92/55 L Pulse Oximetry 99 99 Oxygen Delivery Room Air 03/04/25 08:00 03/04/25 10:00 03/04/25 11:47 Temperature 97.6 F Pulse Rate 83 74 80 Respiratory Rate 20 Blood Pressure 88/55 L Pulse Oximetry 97 Oxygen Delivery 03/04/25 12:00 03/04/25 12:00 Temperature Pulse Rate 75 Respiratory Rate Blood Pressure Pulse Oximetry 97 Oxygen Delivery Room Air Intake/Output Intake/Output: Intake & Output 03/01/25 03/02/25 03/03/25 03/04/25 23:59 23:59 23:59 23:59 Intake Total 1811.5 670.3 1983.8 1496.2 Output Total 500 5150 175 0 Balance 1311.5 -4479.7 1808.8 1496.2 Meds/Results Medications: Active Medications Generic Name Dose Route Start Last Admin Trade Name Freq PRN Reason Stop Dose Admin Acetaminophen 325 mg 02/27/25 16:47 Acetaminophen 325 Mg Tablet PO Q6H PRN Mild Pain (1-3) or Fever Hydrocodone Bitart/Acetaminophen 1 tab 03/03/25 16:51 03/03/25 17:41 Hydrocodone/Acetaminophen (*Crx) 5-325 Mg Tablet PO 1 tab Q6H PRN Administration Pain Rated 7-10 Benzonatate 100 mg 02/27/25 16:47 02/27/25 21:12 Benzonatate 100 Mg Capsule PO 100 mg TID PRN Administration Cough Folic Acid 1 mg 02/28/25 09:00 03/04/25 08:41 Folic Acid 1 Mg Tablet PO 1 mg QAM PABLO Administration Guaifenesin 600 mg 02/27/25 16:47 02/27/25 21:12 Guaifenesin 12 Hr 600 Mg Tabcr PO 600 mg Q12HR PRN Administration Congestion Cefepime HCl 1 gm in 50 mls @ 100 mls/hr 02/28/25 06:00 03/04/25 05:57 Maxipime 1 Gm/Ns 50 Ml IVPB 03/06/25 23:59 100 mls/hr Q12H PABLO Administration Albumin Human 100 mls @ 60 mls/hr 03/04/25 12:05 03/04/25 13:01 Albutein IVPB 60 mls/hr Q12H PABLO Administration Levothyroxine Sodium 75 mcg 02/28/25 06:30 03/03/25 05:50 Levothyroxine Sodium 75 Mcg Tablet PO 75 mcg DAILY@0630 PABLO Administration Magnesium Oxide 400 mg 02/28/25 09:00 03/04/25 08:39 Magnesium Oxide 400 Mg Tablet PO 400 mg BID PABLO Administration Metoprolol Succinate 50 mg 02/28/25 09:00 03/04/25 09:00 Metoprolol Succinate Ext Rel 50 Mg Tabcr PO Not Given DAILY [facility] Multivitamins Therapeutic 1 tablet 02/27/25 22:25 03/03/25 20:47 Multivitamins Therapeutic Tab (*Bkc) PO 1 tablet QHS PABLO Administration Oxybutynin Chloride 5 mg 03/03/25 15:09 03/03/25 15:23 Oxybutynin Chloride 5 Mg Tablet PO 5 mg BID PRN Administration spasm Tamsulosin HCl 0.4 mg 02/28/25 09:00 03/04/25 08:41 Tamsulosin Hcl 0.4 Mg Capsule PO 0.4 mg QAM PABLO Administration Vitamin D 5,000 units 02/28/25 09:00 03/04/25 08:39 Cholecalciferol 5,000 Units Tablet BY MOUTH 5,000 units DAILY PABLO Administration Radiology Results: ITS Impressions Chest X-Ray 02/27/25 13:59 IMPRESSION: 1. No significant interval change in bilateral small pleural effusions, right greater than left with opacities at the right lung base which could represent associated atelectasis and/or pneumonia. Paracentesis Ultrasound 03/02/25 14:08 IMPRESSION: 1. Successful ultrasound-guided paracentesis yielding 5000 mL of francisco javier-colored fluid. Abdomen/Pelvis CT 03/03/25 12:23 Impression: Rowe catheter in satisfactory position within urinary bladder. Moderate to large right pleural effusion and small left pleural effusion with bibasilar atelectasis, right worse than left. Small bilateral nonobstructing renal stones. No hydronephrosis or ureteral stone. Bilateral ureteral stents. Possible mild cirrhotic change of liver. Moderate abdominopelvic ascites. Thyroid Ultrasound 03/04/25 11:46 IMPRESSION: Coarse heterogeneous echogenicity detected diffusely throughout the entirety of the thyroid gland, without increased vascularity to suggest thyroiditis. Benign subcentimeter cysts (TR 1) detected bilaterally for which no further follow-up is needed. In a patient with elevated TSH and elevated free T4, the suggestion of a possible pituitary gland disorder would be more common than inherent thyroid disease. Labs Labs: Laboratory Results - last 24 hr 03/04/25 03:54 WBC 6.5 RBC 2.52 L Hgb 8.6 L Hct 25.5 L MCV 101.2 H MCH 34.1 H MCHC 33.7 RDW 15.5 H Plt Count 154 MPV 10.4 Immature Gran % (Auto) 0.3 Neut % (Auto) 68.0 Lymph % (Auto) 19.1 Nelson % (Auto) 6.9 Eos % (Auto) 4.6 H Baso % (Auto) 1.1 Lymph # (Auto) 1.24 Nelson # (Auto) 0.5 Eos # (Auto) 0.3 Baso # (Auto) 0.1 Abs Immat Gran (auto) 0.02 Absolute Neuts (auto) 4.4 Absolute Nucleated RBC 0.000 Nucleated RBC % 0.0 PT 24.6 H INR 2.2 Sodium 130 L Potassium 4.0 Chloride 99 Carbon Dioxide 23 Anion Gap 8 BUN 53 H Creatinine 3.89 H Estim Creat Clear Calc 16 Estimated GFR 15 L Glucose 119 H Lactic Acid 1.1 Calcium 7.7 L Phosphorus 4.8 H Magnesium 2.1 Total Bilirubin 1.8 H AST 42 ALT 17 Alkaline Phosphatase 199 H Total Protein 5.0 L Albumin 2.5 L Vitamin B12 > 1000.0 H Folate > 20.0 H Quality VTE Prophylaxis VTE prophylaxis: mechanical ordered
[2025-03-04] MEDS: VANCOMYCIN 1,500 MG/NS 500 ML 1,500 MG/500 ML BAG 250 MG IVPB (17:41)
[2025-03-04] MEDS: MIDODRINE HCL 10 MG TABLET PO (17:41)
[2025-03-04 19:04] LABS: MRSA (PCR) NOT DETECTED (NOT DETECTE)
[2025-03-04] MEDS: MULTIVITAMINS THERAPEUTIC TAB (*BKC) 1 TABLET PO (19:55)
[2025-03-05] VITALS (15 sets, daily range): BP systolic 91–105; BP diastolic 53–65; PULSE 67–84; RESP 16–20; TEMP 36.4–37.1; O2SAT 96–100
[2025-03-05] MEDS: HYDROcodone/acetaminophen (*CRX) 5-325 MG TABLET 1 TAB PO (00:27)
[2025-03-05] MEDS: ALBUMIN HUMAN 25% 25 GM/100 ML 100 ML IVPB ×3 (00:28→23:51)
[2025-03-05 04:18] LABS: Basophils Absolute Auto 0.1 K/mm3 (0.0-0.1); Basophils Percent Auto 1.1 % (0.2-1.2); Eosinophils Absolute Auto 0.3 K/mm3 (0-0.3); Eosinophils Percent Auto 4.1 % (0-4.4); Hematocrit 23.6 % (42.0-52.0); Hemoglobin 7.7 g/dL (14.0-18.0); Immature Granulocyte Absolute 0.02 K/mm3 (0.00-0.031); Immature Granulocyte Percent A 0.3 % (0-0.5); Immature Platelet Fraction Pct 2.5 % (0.9-11.2); Lymphocytes Absolute Auto 1.01 K/mm3 (0.9-3.2); Lymphocytes Percent Auto 16.5 % (18.3-44.2); Mean Corpuscular HGB Conc 32.6 g/dl (32-36); Mean Corpuscular Hemoglobin 34.4 pg (26-34); Mean Corpuscular Volume 105.4 fl (80-100); Mean Platelet Volume 10.2 fl (7.4-10.4); Monocytes Absolute Auto 0.4 K/mm3 (0.1-0.6); Monocytes Percent Auto 6.5 % (2.6-8.5); Neutrophils Absolute Auto 4.4 K/mm3 (1.3-6.7); Neutrophils Percent Auto 71.5 % (45.5-73.1); Platelet Count Result 143 k/mm3 (150-375); Red Blood Count 2.24 M/mm3 (4.6-6.20); Red Cell Distribution Width 15.4 % (11.5-14.5); White Blood Count 6.1 K/mm3 (4.5-10.0)
[2025-03-05 04:29] LABS: Alanine Aminotransferase 16 U/L (6-50); Albumin Level 2.8 g/dL (3.5-5.1); Alkaline Phosphatase 199 U/L (38-126); Anion Gap 7 mmol/L (4-12); Aspartate Amino Transferase 34 U/L (17-59); Bilirubin,Total 1.8 mg/dL (0.2-1.3); Blood Urea Nitrogen 56 mg/dL (9-20); Calcium 7.9 mg/dL (8.4-10.2); Carbon Dioxide 24 mmol/L (22-30); Chloride 99 mmol/L (98-107); Estimated CRCL calculation 15 ml/min; Estimated Glomerular Filt Rate 14; Glucose 119 mg/dL (65-110); Magnesium 2.3 mg/dL (1.6-2.3); Phosphorus 4.7 mg/dL (2.5-4.5); Potassium 4.2 mmol/L (3.4-5.0); Sodium 130 mmol/L (137-145)
[2025-03-05 04:48] LABS: Platelet Estimate Slightly Decreased (Adequate)
[2025-03-05 04:49] LABS: Anisocytosis 1+; Hypochromasia 1+; Ovalocytes 1+; Schistocytes Rare
[2025-03-05] MEDS: CEFEPIME 1 GM/NS 50 ML 1 GM/50 ML BAG IVPB ×2 (06:08→17:16)
[2025-03-05] MEDS: CHOLECALCIFEROL 5,000 UNITS TABLET 5000 UNITS BY MOUTH (08:33)
[2025-03-05] MEDS: FOLIC ACID 1 MG TABLET PO (08:33)
[2025-03-05] MEDS: TAMSULOSIN HCL 0.4 MG CAPSULE PO (08:33)
[2025-03-05] MEDS: ENOXAPARIN 30 MG/0.3 ML SYRINGE SUB-Q (08:33)
[2025-03-05] MEDS: MIDODRINE HCL 10 MG TABLET PO ×3 (08:33→17:15)
[2025-03-05] MEDS: MAGNESIUM OXIDE 400 MG TABLET PO ×2 (08:33→17:15)
--- NOTE | 2025-03-05 10:30 | PC.NURSE ---
On 03/05/25, the student, [Carol Mack], provided care and completed [facility] documentation on this patient. I have reviewed the student's documentation and agree with the findings.
--- NOTE | 2025-03-05 12:08 | PC.NURSE ---
Nursing staff encouraged and educated patient on importance of getting out of bed. Patient verbalizes understanding the risks of not getting out of bed. Patient continues to refuse to work with nursing staff to get out of bed. Patient aware of PT and OT ordered.
--- NOTE | 2025-03-05 12:09 | P.PNNP_ITS ---
Progress Note: A&P Assessment and Plan (1) Acute kidney injury: Code(s): N17.9 - Acute kidney failure, unspecified Status: Acute Assessment and Plan: * continue to worsen/deteriorate... * trend of creatinine is as noted * had been running ~ 1.1 - 1.5mg/l since 2020 * averaging ~ 1.1 - 1.3mg/dl in 2022 - 2023 * creatinine up to 2.0mg/dl in November 2024 * hospitalized in early January 2025 for LISA with creatinine of 3.6mg/dl secondary to obstructive uropathy -- bilateral ureteric stones with bilateral hydronephrotic changes present and had bilateral ureteral stents placed with creatinine of 1.13mg/dl at discharge * noted creatinine of 1.41mg/dl on 02/03/25 (outpatient labs) * creatinine ~ 2.0mg/dl on discharge in early February 2025 (02/19/25) * admission creatinine 2.82mg/dl * evaluation on previous and this hospitalization noted: * 2+ protein and 3+ blood on UA (due to stents?) * urine eosinophils negative previously; rare on this admission * 1300mg of proteinuria * urine electrolytes prerenal * CT A/P without obstruction but evidence of volume overload * suspect fluctuating/worsening creatinine/renal function is a manifestation of his liver disease/physiology: * decreased effective circulating volume leading to chronic prerenal azotemia worsened by his need for diuretic therapy in an effort to maintain stability his volume status... * beginnings of or transition to hepatorenal syndrome is of concern - no response to midodrine and octreotide to date.... * follow trend of renal function and UOP (2) Stage 3b chronic kidney disease: Code(s): N18.32 - Chronic kidney disease, stage 3b Status: Chronic Assessment and Plan: * as apparent on last hospitalization * creatinine seems to stabilize around 2ish range * see #1 (3) Volume overload: Qualifiers: Hypervolemia type: unspecified Qualified Code(s): E87.70 - Fluid overload, unspecified Code(s): E87.70 - Fluid overload, unspecified Status: Acute Assessment and Plan: * noted anasarca on admission * due to LISA, CKD, CHF, liver disease or combo of all... * evaluation noted: * Echo noted - EF 65-70%, indeterminate diastolic function, mild-mod aortic insufficiency, and moderate pulmonary HTN * RUQ US showing fatty infiltration of the liver with a possible nodular contour and ascites * coagulopathy noted * hypoalbuminemia noted as well * suspect liver cirrhosis major component with regard to fluid status * attempted IV albumin chased by IV diuretics but hemodynamics will not tolerate * s/p large volume paracentesis on 03/02 * suspect will need to repeat soon... (4) Pneumonia: Qualifiers: Pneumonia type: due to unspecified organism Laterality: unspecified laterality Lung location: unspecified part of lung Qualified Code(s): J18.9 - Pneumonia, unspecified organism Code(s): J18.9 - Pneumonia, unspecified organism Status: Suspected Assessment and Plan: * Chest x-ray showing small bilateral small pleural effusion right greater than left with opacities at the right lung base which could represent pneumonia * Abdomen/pelvis CT showed a increase mild ground-glass opacity in the lingula which could represent pneumonia * follow culture data - negative to date * on antibiotics (5) Cirrhosis: Qualifiers: Hepatic cirrhosis type: unspecified hepatic cirrhosis Ascites presence: with ascites Qualified Code(s): K74.60 - Unspecified cirrhosis of liver; R18.8 - Other ascites Code(s): K74.60 - Unspecified cirrhosis of liver Status: Acute Assessment and Plan: * noted by imaging studies to date * history of heavy alcohol use in the past * also on amiodarone for an extensive period of time * hepatitis panel negative * GI following as well (6) Ascites: Qualifiers: Ascites type: other type Qualified Code(s): R18.8 - Other ascites Code(s): R18.8 - Other ascites Status: Acute Assessment and Plan: * presumably secondary to liver cirrhosis * last paracentesis done on (02/16): * removal of 2650mL of fluid * s/p large volume paracentesis on 03/02 * gram stain noted * culture negative to date (7) Coagulopathy: Code(s): D68.9 - Coagulation defect, unspecified Status: Acute Assessment and Plan: * slow improvement if not stable * INR 7.6 on admission * Xarelto on hold * Vitamin K given * follow trend (8) Anemia: Qualifiers: Anemia type: unspecified type Qualified Code(s): D64.9 - Anemia, unspecified Code(s): D64.9 - Anemia, unspecified Status: Chronic Assessment and Plan: * chronic issue * probably due to liver disease, LISA, and CKD along with acute illness * follows with Hem/Onc * evaluation noted: * B12/folate normal by last hospitalization * anemia studies (from Nov 2024) with adequate iron stores * follow trend of H/H (9) Atrial fibrillation: Qualifiers: Atrial fibrillation type: paroxysmal Qualified Code(s): I48.0 - Paroxysmal atrial fibrillation Code(s): I48.91 - Unspecified atrial fibrillation Status: Chronic Assessment and Plan: * rate control strategy * holding xarelto given elevated INR * Echo noted (10) Kidney stones: Code(s): N20.0 - Calculus of kidney Status: Acute Assessment and Plan: * noted history of bilateral ureteric stones with bilateral hydronephrotic changes by CT scan (early January 2025) * s/p cystoscopy, bilateral retrogrades, bilateral ureteroscopy with stone extraction, and bilateral ureteral stent placement (on 01/20/25) by Urology. * imaging this admission showing resolution of the hydronephrosis * will need Urology follow-up regarding stent removal Will continue to follow. L Subjective Date/time seen: 03/05/25 12:09 Interval history: Follow-up for acute kidney injury/acute renal on chronic kidney disease. Renal function/creatinine continues to deteriorate in association with anuria; noted increasing abdominal distension as well since previous paracentesis as well; no acute distress voiced at the time of my visit; no issues/events overnight or earlier this morning. Exam 2 Narrative: General: elderly and chronically ill-appearing male in NAD Heart: IRRR, normal S1 and S2; no rub Lungs: clear anteriorly; decreased at bases Abdomen: soft, nontender, mild distension with + fluid wave, positive bowel sounds Extremities: no cyanosis or clubbing; 2 - 3+ edema Skin: no nodules Objective Data Vital Signs Vital Signs: Vital Signs Temp Pulse Resp BP Pulse Ox O2 Del Method 03/05/25 12:00 79 Room Air 03/05/25 11:45 97.5 F L 82 16 91/53 L 98 03/05/25 10:00 70 03/05/25 08:45 Room Air 03/05/25 08:00 77 03/05/25 08:00 Room Air 03/05/25 08:00 98.2 F 71 16 94/57 L 96 03/05/25 06:00 75 03/05/25 04:00 98.7 F 78 18 103/60 98 03/05/25 04:00 100 Room Air 03/05/25 04:00 73 03/05/25 02:00 70 03/05/25 00:00 74 03/05/25 00:00 100 Room Air 03/04/25 23:22 98.3 F 72 17 87/53 L 100 03/04/25 22:00 70 03/04/25 20:41 92/58 L 03/04/25 20:00 70 03/04/25 20:00 Room Air 03/04/25 19:53 98.4 F 65 18 82/50 L 97 03/04/25 18:00 74 03/04/25 16:00 74 03/04/25 16:00 98 Room Air 03/04/25 16:00 97.9 F 65 16 84/53 L 98 Intake/Output Intake/Output: Intake & Output 03/02/25 03/03/25 03/04/25 03/05/25 23:59 23:59 23:59 23:59 Intake Total 670.3 1983.8 3179.9 340 Output Total 5150 175 0 Balance -4479.7 1808.8 3179.9 340 Meds/Results Medications: Active Medications Generic Name Dose Route Start Last Admin Trade Name Freq PRN Reason Stop Dose Admin Acetaminophen 325 mg 02/27/25 16:47 Acetaminophen 325 Mg Tablet PO Q6H PRN Mild Pain (1-3) or Fever Hydrocodone Bitart/Acetaminophen 1 tab 03/03/25 16:51 03/05/25 00:27 Hydrocodone/Acetaminophen (*Crx) 5-325 Mg Tablet PO 1 tab Q6H PRN Administration Pain Rated 7-10 Benzonatate 100 mg 02/27/25 16:47 02/27/25 21:12 Benzonatate 100 Mg Capsule PO 100 mg TID PRN Administration Cough Enoxaparin Sodium 30 mg 03/05/25 09:00 03/05/25 08:33 Enoxaparin 30 Mg/0.3 Ml Syringe SUB-Q 30 mg DAILY PABLO Administration Folic Acid 1 mg 02/28/25 09:00 03/05/25 08:33 Folic Acid 1 Mg Tablet PO 1 mg QAM PABLO Administration Guaifenesin 600 mg 02/27/25 16:47 02/27/25 21:12 Guaifenesin 12 Hr 600 Mg Tabcr PO 600 mg Q12HR PRN Administration Congestion Cefepime HCl 1 gm in 50 mls @ 100 mls/hr 02/28/25 06:00 03/05/25 06:08 Maxipime 1 Gm/Ns 50 Ml IVPB 03/06/25 23:59 100 mls/hr Q12H PABLO Administration Albumin Human 100 mls @ 60 mls/hr 03/04/25 12:05 03/05/25 12:07 Albutein IVPB 60 mls/hr Q12H PABLO Administration Levothyroxine Sodium 75 mcg 02/28/25 06:30 03/03/25 05:50 Levothyroxine Sodium 75 Mcg Tablet PO 75 mcg DAILY@0630 PABLO Administration Magnesium Oxide 400 mg 02/28/25 09:00 03/05/25 08:33 Magnesium Oxide 400 Mg Tablet PO 400 mg BID PABLO Administration Metoprolol Succinate 50 mg 02/28/25 09:00 03/05/25 08:48 Metoprolol Succinate Ext Rel 50 Mg Tabcr PO Not Given DAILY PABLO Midodrine 10 mg 03/04/25 17:25 03/05/25 12:07 Midodrine Hcl 10 Mg Tablet PO 10 mg TID PABLO Administration Multivitamins Therapeutic 1 tablet 02/27/25 22:25 03/04/25 19:55 Multivitamins Therapeutic Tab (*Bkc) PO 1 tablet QHS PABLO Administration Oxybutynin Chloride 5 mg 03/03/25 15:09 03/03/25 15:23 Oxybutynin Chloride 5 Mg Tablet PO 5 mg BID PRN Administration spasm Tamsulosin HCl 0.4 mg 02/28/25 09:00 03/05/25 08:33 Tamsulosin Hcl 0.4 Mg Capsule PO 0.4 mg QAM PABLO Administration Vitamin D 5,000 units 02/28/25 09:00 03/05/25 08:33 Cholecalciferol 5,000 Units Tablet BY MOUTH 5,000 units DAILY PABLO Administration Radiology Results: ITS Impressions Chest X-Ray 02/27/25 13:59 IMPRESSION: 1. No significant interval change in bilateral small pleural effusions, right greater than left with opacities at the right lung base which could represent associated atelectasis and/or pneumonia. Paracentesis Ultrasound 03/02/25 14:08 IMPRESSION: 1. Successful ultrasound-guided paracentesis yielding 5000 mL of francisco javier-colored fluid. Abdomen/Pelvis CT 03/03/25 12:23 Impression: Majano catheter in satisfactory position within urinary bladder. Moderate to large right pleural effusion and small left pleural effusion with bibasilar atelectasis, right worse than left. Small bilateral nonobstructing renal stones. No hydronephrosis or ureteral stone. Bilateral ureteral stents. Possible mild cirrhotic change of liver. Moderate abdominopelvic ascites. Thyroid Ultrasound 03/04/25 11:46 IMPRESSION: Coarse heterogeneous echogenicity detected diffusely throughout the entirety of the thyroid gland, without increased vascularity to suggest thyroiditis. Benign subcentimeter cysts (TR 1) detected bilaterally for which no further follow-up is needed. In a patient with elevated TSH and elevated free T4, the suggestion of a possible pituitary gland disorder would be more common than inherent thyroid disease. Labs Labs: Laboratory Tests 03/05/25 03:59 03/05/25 03:59 Calcium 7.9 L Phosphorus 4.7 H Magnesium 2.3 Total Bilirubin 1.8 H AST 34 ALT 16 Alkaline Phosphatase 199 H Total Protein 6.0 L Albumin 2.8 L Nasal MRSA (PCR) Microbiology 03/02/25 13:28 Abdominal Fluid Anaerobic Culture - Preliminary 03/02/25 13:28 Abdominal Fluid Aerobic Culture - Preliminary
--- NOTE | 2025-03-05 13:24 | P.PNUR_ITS ---
Progress Note: A&P Assessment and Plan (1) Bilateral ureteral calculi: Code(s): N20.1 - Calculus of ureter Status: Acute Assessment and Plan: - Resolved , needs to have stents removed (2) Acute renal failure: Code(s): N17.9 - Acute kidney failure, unspecified Status: Acute Assessment and Plan: - Nephrology following Plan [id number] admitted 02/27/25. Urology was consulted to r/o urinary retention. Majano catheter was placed with minimal urinary output. Urinary retention ruled out --> bladder scan was erroneously picking up abdominal ascites. He is s/p paracentesis 03/02/25. Majano has been removed, patient denies retention issues. He is s/p bilateral ureteral stent placement and stone management with Dr. Rikc 01/20/25. He is due to have ureteral stents removed in office after his acute issues have resolved. He plans to go to a nursing facility when stable for discharge. Urology to follow peripherally. Please call with questions. Subjective Subjective Date/Time Seen: 03/05/25 13:24 Interval history: Patient remains hospitalized with hepatorenal syndrome, Cr 4.08 Urine dark brown via Pure[place] Patient comfortable on exam, pleasant, denies complaints Exam Const: General: comfortable and no acute distress Resp: Effort & Inspection: normal respiratory effort Neuro: Speech: normal speech Psych: Mental Status: mental status grossly normal Objective Data Vital Signs Vital Signs: Vital Signs - 24 hr 03/04/25 14:00 03/04/25 16:00 03/04/25 16:00 Temperature 97.9 F Pulse Rate 74 65 Respiratory Rate 16 Blood Pressure 84/53 L Pulse Oximetry 98 98 Oxygen Delivery Room Air 03/04/25 16:00 03/04/25 18:00 03/04/25 19:53 Temperature 98.4 F Pulse Rate 74 74 65 Respiratory Rate 18 Blood Pressure 82/50 L Pulse Oximetry 97 Oxygen Delivery 03/04/25 20:00 03/04/25 20:00 03/04/25 20:41 Temperature Pulse Rate 70 Respiratory Rate Blood Pressure 92/58 L Pulse Oximetry Oxygen Delivery Room Air 03/04/25 22:00 03/04/25 23:22 03/05/25 00:00 Temperature 98.3 F Pulse Rate 70 72 Respiratory Rate 17 Blood Pressure 87/53 L Pulse Oximetry 100 100 Oxygen Delivery Room Air 03/05/25 00:00 03/05/25 02:00 03/05/25 04:00 Temperature Pulse Rate 74 70 73 Respiratory Rate Blood Pressure Pulse Oximetry Oxygen Delivery 03/05/25 04:00 03/05/25 04:00 03/05/25 06:00 Temperature 98.7 F Pulse Rate 78 75 Respiratory Rate 18 Blood Pressure 103/60 Pulse Oximetry 100 98 Oxygen Delivery Room Air 03/05/25 08:00 03/05/25 08:00 03/05/25 08:00 Temperature 98.2 F Pulse Rate 71 77 Respiratory Rate 16 Blood Pressure 94/57 L Pulse Oximetry 96 Oxygen Delivery Room Air 03/05/25 08:45 03/05/25 10:00 03/05/25 11:45 Temperature 97.5 F L Pulse Rate 70 82 Respiratory Rate 16 Blood Pressure 91/53 L Pulse Oximetry 98 Oxygen Delivery Room Air 03/05/25 12:00 03/05/25 12:00 Temperature Pulse Rate 79 Respiratory Rate Blood Pressure Pulse Oximetry Oxygen Delivery Room Air Intake/Output Intake/Output: Intake & Output 03/02/25 03/03/25 03/04/25 03/05/25 23:59 23:59 23:59 23:59 Intake Total 670.3 1983.8 3179.9 340 Output Total 5150 175 0 Balance -4479.7 1808.8 3179.9 340 Meds/Results Medications: Active Medications Generic Name Dose Route Start Last Admin Trade Name Freq PRN Reason Stop Dose Admin Acetaminophen 325 mg 02/27/25 16:47 Acetaminophen 325 Mg Tablet PO Q6H PRN Mild Pain (1-3) or Fever Hydrocodone Bitart/Acetaminophen 1 tab 03/03/25 16:51 03/05/25 00:27 Hydrocodone/Acetaminophen (*Crx) 5-325 Mg Tablet PO 1 tab Q6H PRN Administration Pain Rated 7-10 Benzonatate 100 mg 02/27/25 16:47 02/27/25 21:12 Benzonatate 100 Mg Capsule PO 100 mg TID PRN Administration Cough Enoxaparin Sodium 30 mg 03/05/25 09:00 03/05/25 08:33 Enoxaparin 30 Mg/0.3 Ml Syringe SUB-Q 30 mg DAILY PABLO Administration Folic Acid 1 mg 02/28/25 09:00 03/05/25 08:33 Folic Acid 1 Mg Tablet PO 1 mg QAM PABLO Administration Guaifenesin 600 mg 02/27/25 16:47 02/27/25 21:12 Guaifenesin 12 Hr 600 Mg Tabcr PO 600 mg Q12HR PRN Administration Congestion Cefepime HCl 1 gm in 50 mls @ 100 mls/hr 02/28/25 06:00 03/05/25 06:08 Maxipime 1 Gm/Ns 50 Ml IVPB 03/06/25 23:59 100 mls/hr Q12H PABLO Administration Albumin Human 100 mls @ 60 mls/hr 03/04/25 12:05 03/05/25 12:07 Albutein IVPB 60 mls/hr Q12H PABLO Administration Levothyroxine Sodium 75 mcg 02/28/25 06:30 03/03/25 05:50 Levothyroxine Sodium 75 Mcg Tablet PO 75 mcg DAILY@0630 PABLO Administration Magnesium Oxide 400 mg 02/28/25 09:00 03/05/25 08:33 Magnesium Oxide 400 Mg Tablet PO 400 mg BID PABLO Administration Metoprolol Succinate 50 mg 02/28/25 09:00 03/05/25 08:48 Metoprolol Succinate Ext Rel 50 Mg Tabcr PO Not Given DAILY PABLO Midodrine 10 mg 03/04/25 17:25 03/05/25 12:07 Midodrine Hcl 10 Mg Tablet PO 10 mg TID PABLO Administration Multivitamins Therapeutic 1 tablet 02/27/25 22:25 03/04/25 19:55 Multivitamins Therapeutic Tab (*Bkc) PO 1 tablet QHS PABLO Administration Oxybutynin Chloride 5 mg 03/03/25 15:09 03/03/25 15:23 Oxybutynin Chloride 5 Mg Tablet PO 5 mg BID PRN Administration spasm Tamsulosin HCl 0.4 mg 02/28/25 09:00 03/05/25 08:33 Tamsulosin Hcl 0.4 Mg Capsule PO 0.4 mg QAM PABLO Administration Vitamin D 5,000 units 02/28/25 09:00 03/05/25 08:33 Cholecalciferol 5,000 Units Tablet BY MOUTH 5,000 units DAILY PABLO Administration Radiology Results: ITS Impressions Chest X-Ray 02/27/25 13:59 IMPRESSION: 1. No significant interval change in bilateral small pleural effusions, right greater than left with opacities at the right lung base which could represent associated atelectasis and/or pneumonia. Paracentesis Ultrasound 03/02/25 14:08 IMPRESSION: 1. Successful ultrasound-guided paracentesis yielding 5000 mL of francisco javier-colored fluid. Abdomen/Pelvis CT 03/03/25 12:23 Impression: Majano catheter in satisfactory position within urinary bladder. Moderate to large right pleural effusion and small left pleural effusion with bibasilar atelectasis, right worse than left. Small bilateral nonobstructing renal stones. No hydronephrosis or ureteral stone. Bilateral ureteral stents. Possible mild cirrhotic change of liver. Moderate abdominopelvic ascites. Thyroid Ultrasound 03/04/25 11:46 IMPRESSION: Coarse heterogeneous echogenicity detected diffusely throughout the entirety of the thyroid gland, without increased vascularity to suggest thyroiditis. Benign subcentimeter cysts (TR 1) detected bilaterally for which no further follow-up is needed. In a patient with elevated TSH and elevated free T4, the suggestion of a possible pituitary gland disorder would be more common than inherent thyroid disease. Labs Labs: Laboratory Results - last 24 hr 03/04/25 03/05/25 17:48 03:59 WBC 6.1 RBC 2.24 L Hgb 7.7 L Hct 23.6 L MCV 105.4 H MCH 34.4 H MCHC 32.6 RDW 15.4 H Plt Count 143 L MPV 10.2 Immature Gran % (Auto) 0.3 Neut % (Auto) 71.5 Lymph % (Auto) 16.5 L [place] % (Auto) 6.5 Eos % (Auto) 4.1 Baso % (Auto) 1.1 Lymph # (Auto) 1.01 [place] # (Auto) 0.4 Eos # (Auto) 0.3 Baso # (Auto) 0.1 Abs Immat Gran (auto) 0.02 Absolute Neuts (auto) 4.4 Absolute Nucleated RBC 0.000 Band Neutrophils % Not Reportable Nucleated RBC % 0.0 Platelet Estimate Slightly decreased % Immature Plt Fraction 2.5 Hypochromasia 1+ Anisocytosis 1+ Ovalocytes 1+ Schistocytes Rare Sodium 130 L Potassium 4.2 Chloride 99 Carbon Dioxide 24 Anion Gap 7 BUN 56 H Creatinine 4.08 H Estim Creat Clear Calc 15 Estimated GFR 14 L Glucose 119 H Calcium 7.9 L Phosphorus 4.7 H Magnesium 2.3 Total Bilirubin 1.8 H AST 34 ALT 16 Alkaline Phosphatase 199 H Total Protein 6.0 L Albumin 2.8 L Nasal MRSA (PCR) Not detected
--- NOTE | 2025-03-05 17:39 | P.PNIM_ITS ---
Progress Note: A&P Assessment and Plan (1) Volume overload: Qualifiers: Hypervolemia type: unspecified Qualified Code(s): E87.70 - Fluid overload, unspecified Code(s): E87.70 - Fluid overload, unspecified Status: Acute Assessment and Plan: * Chest x-ray showing bilateral small pleural effusions right greater than left with opacities in the right lung base which could represent pneumonia * Abdomen/pelvis CT shown anasarca with very small left and small to moderate- sized right pleural effusion, moderate amount of ascites and prominent body wall and less severe mesenteric and retroperitoneal edema, increased mild ground-glass opacity in the lingula which could represent pneumonia, a few tiny nonobstructive renal stones without hydronephrosis or obstruction, infrarenal IVC filter in place * ECHO from 02/14 EF 65-70% * Continue holding [facility] Nephrology following (2) Ascites: Qualifiers: Ascites type: other type Qualified Code(s): R18.8 - Other ascites Code(s): R18.8 - Other ascites Status: Acute Assessment and Plan: Peritoneal fluid culture no organism growing continue Cefepime , Discontinued Vanc f/u cultures (3) Cirrhosis: Qualifiers: Hepatic cirrhosis type: unspecified hepatic cirrhosis Ascites presence: with ascites Qualified Code(s): K74.60 - Unspecified cirrhosis of liver; R18.8 - Other ascites Code(s): K74.60 - Unspecified cirrhosis of liver Status: Acute Assessment and Plan: * Total bili initially 2.8 now up to 3.1 * Alkaline phosphate 278> 221 * Ammonia 42 on admission, now down to less than 9 * UA showed 1+ urine bilirubin * GI following and recommending Midodrine and Octreotide infusion for hepatorenal syndrome * Continue Albumin per GI recommendation * Unable to get a true MELD score due to supratherapeutic INR * Underwent paracentesis and removed 5 L * Pending fluid analysis, f/u cultures (4) Supratherapeutic INR: Code(s): R79.1 - Abnormal coagulation profile Status: Acute Assessment and Plan: * Initial INR 7.6 now down to 2.2 * Underwent thoracentesis and removed 5 L * Xarelto stopped and he will need therapeutic Lovenox per GI recommendation as the only option for anticoagulation considering his liver failure. * s/p vitamin K today and repeat INR * Continue to trend (5) Acute kidney injury: Code(s): N17.9 - Acute kidney failure, unspecified Status: Acute Assessment and Plan: * ?Hepatorenal syndrome * Cr 4.08 from 2.82 * Baseline creatinine appears to be 1.13-1.17, EGFR 60 to greater than 60 * Continue Octreotide, Midodrine and Albumin * Patient may need Dialysis * Nephrology following (6) Pneumonia: Qualifiers: Pneumonia type: due to unspecified organism Laterality: unspecified laterality Lung location: unspecified part of lung Qualified Code(s): J18.9 - Pneumonia, unspecified organism Code(s): J18.9 - Pneumonia, unspecified organism Status: Suspected Assessment and Plan: * Chest x-ray showing small bilateral small pleural effusion right greater than left with opacities at the right lung base which could represent pneumonia * Abdomen/pelvis CT showed a increase mild ground-glass opacity in the lingula which could represent pneumonia * On Cefepime * s/p Vanc as MRSA negative, completed Azithromycin ' * Continue Cefepime (7) Urinary tract infection: Qualifiers: Hematuria presence: without hematuria Urinary tract infection type: acute cystitis Qualified Code(s): N30.00 - Acute cystitis without hematuria Code(s): N39.0 - Urinary tract infection, site not specified Status: Acute Assessment and Plan: * UA shown brown urine color, turbid appearance, 1+ protein, 1+ urine blood, 1+ urine bilirubin, 2+ leukocyte, greater than 100 urine RBC, 21-50 urine WBC, 3- 5 urine casts, rare urine eosinophils. * Urine culture was obtained and pending * Continue cefepime (8) Chronic anemia: Code(s): D64.9 - Anemia, unspecified Status: Chronic Assessment and Plan: Likely secondary to cirrhosis of the liver and chronic kidney disease, chronic * Hemoglobin 7.7, MCV 102.4 * Anemia workup in the past showed normal iron, ferritin, vitamin B12, folate * TSH and T4 elevated * B12/folate elevated, isat 67 * monitor H and H (9) Hypertension: Qualifiers: Hypertension type: primary hypertension Qualified Code(s): I10 - Essential (primary) hypertension Code(s): I10 - Essential (primary) hypertension Status: Chronic Assessment and Plan: * Blood pressure ranging 104/65 to 110/70 * Patient is not currently on any home medications for hypertension * Continue to trend (10) CHEO (obstructive sleep apnea): Code(s): G47.33 - Obstructive sleep apnea (adult) (pediatric) Status: Chronic Assessment and Plan: * Continue CPAP (11) Atrial fibrillation: Qualifiers: Atrial fibrillation type: paroxysmal Qualified Code(s): I48.0 - Paroxysmal atrial fibrillation Code(s): I48.91 - Unspecified atrial fibrillation Status: Chronic Assessment and Plan: * Patient initially in AFib RVR on arrival to the ED * EKG showing AFib with a rate of 87, QTC 524, right bundle branch block, left posterior fascicular block * Xarelto stopped--Will need therapeutic Lovenox when appropriate as this is the only anticoagulation recommended with liver failure. * Holding Metoprolol due to low blood pressure * Continue cardiac monitoring (12) Hypothyroidism: Code(s): E03.9 - Hypothyroidism, unspecified Status: Acute Assessment and Plan: * Continue Synthroid * TSH adn T4 elevated * hold levothyroxine * monitor thyroid studies * US thyroid unremarkable * MRI brain once patient is stable Plan Acute urinary retention Urology consulted and rowe was inserted but patient complained of pain and it was removed yesterday passing urine and urology following DVT prophylaxis on Sq Lovenox Discussed with Nephrology and he stated that dialysis will not change prognosis and recommends comfort care/Hospice Subjective Date/time seen: 03/05/25 17:39 Interval history: Comfortable at bedside Review of Systems Review of Systems: All systems reviewed & are unremarkable except as noted in HPI and below Exam Narrative: General: In no acute distress, well nourished Head: atraumatic, no encephalopathy Eyes: PERRLA, sclera clear ENT: moist mucous membranes, nasal passages clear Neck: supple, no JVD, no adenopathy, trachea midline Cardiac: Normal S1 and S2. No murmur, gallops or friction rubs, peripheral pulses intact. Respiratory: Bilateral crackles in bases, no adventitious lung sounds, currently on room air Gastrointestinal: firm, taunt, non-tender, normoactive bowel sounds. Anasarca present : voiding without difficulty. Extremities: moves all extremities well, 2+ pitting edema BLE Skin: clean, dry, intact. No wounds or lesions. Neuro: Alert and oriented x4, cranial nerves intact, no neuro deficits. Psych: normal mood, normal affect, interactive Const: General: comfortable and no acute distress Other: , male, nontoxic appearance, chronically ill-appearing HENMT: Face/Nose/Sinus: Normal nares present Mouth: Yes moist mucous membranes Eyes: General: appearance normal, both eyes and all related structures Sclera: sclerae normal Pupils: Equal, round and reactive pupils present EOM: EOMs intact bilaterally Resp: Effort & Inspection: normal respiratory effort Other: Bibasilar rales. Cardio: Rate: regular rate Rhythm: regular rhythm Other: S1-S2 present without murmur, rub, ectopy GI: Other: rounded abdomen, slight fluid wave with palpation. No tenderness with palpation. Normoactive bowel sounds in all quadrants. : Other: External catheter in place, T colored output. Neuro: Cranial nerves: Yes Equal, round and reactive pupils present Speech: normal speech Motor exam (neuro): 5/5 motor strength present throughout Sensory Exam: normal sensation Other: A&O x4 Extrem: Other: 3+ pitting edema starting at upper thigh s to ankles bilaterally, R>L. Psych: Mental Status: mental status grossly normal Affect: normal affect Other: Good insight and judgment, pleasant. Objective Data Vital Signs Vital Signs: Vital Signs - 24 hr 03/04/25 18:00 03/04/25 19:53 03/04/25 20:00 Temperature 98.4 F Pulse Rate 74 65 Respiratory Rate 18 Blood Pressure 82/50 L Pulse Oximetry 97 Oxygen Delivery Room Air 03/04/25 20:00 03/04/25 20:41 03/04/25 22:00 Temperature Pulse Rate 70 70 Respiratory Rate Blood Pressure 92/58 L Pulse Oximetry Oxygen Delivery 03/04/25 23:22 03/05/25 00:00 03/05/25 00:00 Temperature 98.3 F Pulse Rate 72 74 Respiratory Rate 17 Blood Pressure 87/53 L Pulse Oximetry 100 100 Oxygen Delivery Room Air 03/05/25 02:00 03/05/25 04:00 03/05/25 04:00 Temperature Pulse Rate 70 73 Respiratory Rate Blood Pressure Pulse Oximetry 100 Oxygen Delivery Room Air 03/05/25 04:00 03/05/25 06:00 03/05/25 08:00 Temperature 98.7 F 98.2 F Pulse Rate 78 75 71 Respiratory Rate 18 16 Blood Pressure 103/60 94/57 L Pulse Oximetry 98 96 Oxygen Delivery 03/05/25 08:00 03/05/25 08:00 03/05/25 08:45 Temperature Pulse Rate 77 Respiratory Rate Blood Pressure Pulse Oximetry Oxygen Delivery Room Air Room Air 03/05/25 10:00 03/05/25 11:45 03/05/25 12:00 Temperature 97.5 F L Pulse Rate 70 82 Respiratory Rate 16 Blood Pressure 91/53 L Pulse Oximetry 98 Oxygen Delivery Room Air 03/05/25 12:00 03/05/25 14:00 03/05/25 16:00 Temperature Pulse Rate 79 73 Respiratory Rate Blood Pressure Pulse Oximetry Oxygen Delivery Room Air 03/05/25 16:00 03/05/25 16:00 Temperature 97.7 F Pulse Rate 73 68 Respiratory Rate 20 Blood Pressure 105/56 L Pulse Oximetry 99 Oxygen Delivery Intake/Output Intake/Output: Intake & Output 03/02/25 03/03/25 03/04/25 03/05/25 23:59 23:59 23:59 23:59 Intake Total 670.3 1983.8 3179.9 340 Output Total 5150 175 0 Balance -4479.7 1808.8 3179.9 340 Meds/Results Medications: Active Medications Generic Name Dose Route Start Last Admin Trade Name Freq PRN Reason Stop Dose Admin Acetaminophen 325 mg 02/27/25 16:47 Acetaminophen 325 Mg Tablet PO Q6H PRN Mild Pain (1-3) or Fever Hydrocodone Bitart/Acetaminophen 1 tab 03/03/25 16:51 03/05/25 00:27 Hydrocodone/Acetaminophen (*Crx) 5-325 Mg Tablet PO 1 tab Q6H PRN Administration Pain Rated 7-10 Benzonatate 100 mg 02/27/25 16:47 02/27/25 21:12 Benzonatate 100 Mg Capsule PO 100 mg TID PRN Administration Cough Enoxaparin Sodium 30 mg 03/05/25 09:00 03/05/25 08:33 Enoxaparin 30 Mg/0.3 Ml Syringe SUB-Q 30 mg DAILY PABLO Administration Folic Acid 1 mg 02/28/25 09:00 03/05/25 08:33 Folic Acid 1 Mg Tablet PO 1 mg QAM PABLO Administration Guaifenesin 600 mg 02/27/25 16:47 02/27/25 21:12 Guaifenesin 12 Hr 600 Mg Tabcr PO 600 mg Q12HR PRN Administration Congestion Cefepime HCl 1 gm in 50 mls @ 100 mls/hr 02/28/25 06:00 03/05/25 17:16 Maxipime 1 Gm/Ns 50 Ml IVPB 03/06/25 23:59 100 mls/hr Q12H PABLO Administration Albumin Human 100 mls @ 60 mls/hr 03/04/25 12:05 03/05/25 12:07 Albutein IVPB 60 mls/hr Q12H PABLO Administration Levothyroxine Sodium 75 mcg 02/28/25 06:30 03/03/25 05:50 Levothyroxine Sodium 75 Mcg Tablet PO 75 mcg DAILY@0630 PABLO Administration Magnesium Oxide 400 mg 02/28/25 09:00 03/05/25 17:15 Magnesium Oxide 400 Mg Tablet PO 400 mg BID PABLO Administration Metoprolol Succinate 50 mg 02/28/25 09:00 03/05/25 08:48 Metoprolol Succinate Ext Rel 50 Mg Tabcr PO Not Given DAILY PABLO Midodrine 10 mg 03/04/25 17:25 03/05/25 17:15 Midodrine Hcl 10 Mg Tablet PO 10 mg TID PABLO Administration Multivitamins Therapeutic 1 tablet 02/27/25 22:25 03/04/25 19:55 Multivitamins Therapeutic Tab (*Bkc) PO 1 tablet QHS PABLO Administration Oxybutynin Chloride 5 mg 03/03/25 15:09 03/03/25 15:23 Oxybutynin Chloride 5 Mg Tablet PO 5 mg BID PRN Administration spasm Tamsulosin HCl 0.4 mg 02/28/25 09:00 03/05/25 08:33 Tamsulosin Hcl 0.4 Mg Capsule PO 0.4 mg QAM PABLO Administration Vitamin D 5,000 units 02/28/25 09:00 03/05/25 08:33 Cholecalciferol 5,000 Units Tablet BY MOUTH 5,000 units DAILY PABLO Administration Radiology Results: ITS Impressions Chest X-Ray 02/27/25 13:59 IMPRESSION: 1. No significant interval change in bilateral small pleural effusions, right greater than left with opacities at the right lung base which could represent associated atelectasis and/or pneumonia. Paracentesis Ultrasound 03/02/25 14:08 IMPRESSION: 1. Successful ultrasound-guided paracentesis yielding 5000 mL of francisco javier-colored fluid. Abdomen/Pelvis CT 03/03/25 12:23 Impression: Rowe catheter in satisfactory position within urinary bladder. Moderate to large right pleural effusion and small left pleural effusion with bibasilar atelectasis, right worse than left. Small bilateral nonobstructing renal stones. No hydronephrosis or ureteral stone. Bilateral ureteral stents. Possible mild cirrhotic change of liver. Moderate abdominopelvic ascites. Thyroid Ultrasound 03/04/25 11:46 IMPRESSION: Coarse heterogeneous echogenicity detected diffusely throughout the entirety of the thyroid gland, without increased vascularity to suggest thyroiditis. Benign subcentimeter cysts (TR 1) detected bilaterally for which no further follow-up is needed. In a patient with elevated TSH and elevated free T4, the suggestion of a possible pituitary gland disorder would be more common than inherent thyroid disease. Labs Labs: Laboratory Results - last 24 hr 03/04/25 03/05/25 17:48 03:59 WBC 6.1 RBC 2.24 L Hgb 7.7 L Hct 23.6 L MCV 105.4 H MCH 34.4 H MCHC 32.6 RDW 15.4 H Plt Count 143 L MPV 10.2 Immature Gran % (Auto) 0.3 Neut % (Auto) 71.5 Lymph % (Auto) 16.5 L [place] % (Auto) 6.5 Eos % (Auto) 4.1 Baso % (Auto) 1.1 Lymph # (Auto) 1.01 [place] # (Auto) 0.4 Eos # (Auto) 0.3 Baso # (Auto) 0.1 Abs Immat Gran (auto) 0.02 Absolute Neuts (auto) 4.4 Absolute Nucleated RBC 0.000 Band Neutrophils % Not Reportable Nucleated RBC % 0.0 Platelet Estimate Slightly decreased % Immature Plt Fraction 2.5 Hypochromasia 1+ Anisocytosis 1+ Ovalocytes 1+ Schistocytes Rare Sodium 130 L Potassium 4.2 Chloride 99 Carbon Dioxide 24 Anion Gap 7 BUN 56 H Creatinine 4.08 H Estim Creat Clear Calc 15 Estimated GFR 14 L Glucose 119 H Calcium 7.9 L Phosphorus 4.7 H Magnesium 2.3 Total Bilirubin 1.8 H AST 34 ALT 16 Alkaline Phosphatase 199 H Total Protein 6.0 L Albumin 2.8 L Nasal MRSA (PCR) Not detected Quality VTE Prophylaxis VTE prophylaxis: mechanical ordered
--- NOTE | 2025-03-05 18:19 | P.PNGI_ITS ---
Progress Note: A&P Assessment and Plan (1) Cirrhosis: Qualifiers: Hepatic cirrhosis type: unspecified hepatic cirrhosis Ascites presence: with ascites Qualified Code(s): K74.60 - Unspecified cirrhosis of liver; R18.8 - Other ascites Code(s): K74.60 - Unspecified cirrhosis of liver Status: Acute (2) Spontaneous bacterial peritonitis: Code(s): K65.2 - Spontaneous bacterial peritonitis Status: Acute Assessment and Plan: There is a slight worsening of the patient's ascites since the prior paracentesis. To provide symptomatic relief and to allow for continued monitoring for spontaneous bacterial peritonitis (SBP), a large-volume paracentesis will be ordered. As previously addressed, the patient's steadily increasing creatinine indicates a poor prognosis. He is currently considering the options of initiating dialysis versus pursuing comfort measures. (3) Ascites: Qualifiers: Ascites type: other type Qualified Code(s): R18.8 - Other ascites Code(s): R18.8 - Other ascites Status: Acute Subjective Date/time seen: 03/05/25 18:19 Interval history: The patient is doubtful about undergoing dialysis or not. There are no new symptoms. Exam Narrative: Abdomen: Abdominal wall edema, tense, fluid with positive. Rest unchanged. Objective Data Vital Signs Vital Signs: Vital Signs - 24 hr 03/04/25 19:53 03/04/25 20:00 03/04/25 20:00 Temperature 98.4 F Pulse Rate 65 70 Respiratory Rate 18 Blood Pressure 82/50 L Pulse Oximetry 97 Oxygen Delivery Room Air 03/04/25 20:41 03/04/25 22:00 03/04/25 23:22 Temperature 98.3 F Pulse Rate 70 72 Respiratory Rate 17 Blood Pressure 92/58 L 87/53 L Pulse Oximetry 100 Oxygen Delivery 03/05/25 00:00 03/05/25 00:00 03/05/25 02:00 Temperature Pulse Rate 74 70 Respiratory Rate Blood Pressure Pulse Oximetry 100 Oxygen Delivery Room Air 03/05/25 04:00 03/05/25 04:00 03/05/25 04:00 Temperature 98.7 F Pulse Rate 73 78 Respiratory Rate 18 Blood Pressure 103/60 Pulse Oximetry 100 98 Oxygen Delivery Room Air 03/05/25 06:00 03/05/25 08:00 03/05/25 08:00 Temperature 98.2 F Pulse Rate 75 71 Respiratory Rate 16 Blood Pressure 94/57 L Pulse Oximetry 96 Oxygen Delivery Room Air 03/05/25 08:00 03/05/25 08:45 03/05/25 10:00 Temperature Pulse Rate 77 70 Respiratory Rate Blood Pressure Pulse Oximetry Oxygen Delivery Room Air 03/05/25 11:45 03/05/25 12:00 03/05/25 12:00 Temperature 97.5 F L Pulse Rate 82 79 Respiratory Rate 16 Blood Pressure 91/53 L Pulse Oximetry 98 Oxygen Delivery Room Air 03/05/25 14:00 03/05/25 16:00 03/05/25 16:00 Temperature Pulse Rate 73 73 Respiratory Rate Blood Pressure Pulse Oximetry Oxygen Delivery Room Air 03/05/25 16:00 Temperature 97.7 F Pulse Rate 68 Respiratory Rate 20 Blood Pressure 105/56 L Pulse Oximetry 99 Oxygen Delivery Intake/Output Intake/Output: Intake & Output 03/02/25 03/03/25 03/04/25 03/05/25 23:59 23:59 23:59 23:59 Intake Total 670.3 1983.8 3179.9 920 Output Total 5150 175 0 Balance -4479.7 1808.8 3179.9 920 Meds/Results Medications: Active Medications Generic Name Dose Route Start Last Admin Trade Name Freq PRN Reason Stop Dose Admin Acetaminophen 325 mg 02/27/25 16:47 Acetaminophen 325 Mg Tablet PO Q6H PRN Mild Pain (1-3) or Fever Hydrocodone Bitart/Acetaminophen 1 tab 03/03/25 16:51 03/05/25 00:27 Hydrocodone/Acetaminophen (*Crx) 5-325 Mg Tablet PO 1 tab Q6H PRN Administration Pain Rated 7-10 Benzonatate 100 mg 02/27/25 16:47 02/27/25 21:12 Benzonatate 100 Mg Capsule PO 100 mg TID PRN Administration Cough Enoxaparin Sodium 30 mg 03/05/25 09:00 03/05/25 08:33 Enoxaparin 30 Mg/0.3 Ml Syringe SUB-Q 30 mg DAILY PABLO Administration Folic Acid 1 mg 02/28/25 09:00 03/05/25 08:33 Folic Acid 1 Mg Tablet PO 1 mg QAM PABLO Administration Guaifenesin 600 mg 02/27/25 16:47 02/27/25 21:12 Guaifenesin 12 Hr 600 Mg Tabcr PO 600 mg Q12HR PRN Administration Congestion Cefepime HCl 1 gm in 50 mls @ 100 mls/hr 02/28/25 06:00 03/05/25 17:16 Maxipime 1 Gm/Ns 50 Ml IVPB 03/06/25 23:59 100 mls/hr Q12H PABLO Administration Albumin Human 100 mls @ 60 mls/hr 03/04/25 12:05 03/05/25 13:48 Albutein IVPB Infused Q12H PABLO Infusion Levothyroxine Sodium 75 mcg 02/28/25 06:30 03/03/25 05:50 Levothyroxine Sodium 75 Mcg Tablet PO 75 mcg DAILY@0630 PABLO Administration Magnesium Oxide 400 mg 02/28/25 09:00 03/05/25 17:15 Magnesium Oxide 400 Mg Tablet PO 400 mg BID PABLO Administration Metoprolol Succinate 50 mg 02/28/25 09:00 03/05/25 08:48 Metoprolol Succinate Ext Rel 50 Mg Tabcr PO Not Given DAILY PABLO Midodrine 10 mg 03/04/25 17:25 03/05/25 17:15 Midodrine Hcl 10 Mg Tablet PO 10 mg TID PABLO Administration Multivitamins Therapeutic 1 tablet 02/27/25 22:25 03/04/25 19:55 Multivitamins Therapeutic Tab (*Bkc) PO 1 tablet QHS PABLO Administration Oxybutynin Chloride 5 mg 03/03/25 15:09 03/03/25 15:23 Oxybutynin Chloride 5 Mg Tablet PO 5 mg BID PRN Administration spasm Tamsulosin HCl 0.4 mg 02/28/25 09:00 03/05/25 08:33 Tamsulosin Hcl 0.4 Mg Capsule PO 0.4 mg QAM PABLO Administration Vitamin D 5,000 units 02/28/25 09:00 03/05/25 08:33 Cholecalciferol 5,000 Units Tablet BY MOUTH 5,000 units DAILY PABLO Administration Radiology Results: ITS Impressions Chest X-Ray 02/27/25 13:59 IMPRESSION: 1. No significant interval change in bilateral small pleural effusions, right greater than left with opacities at the right lung base which could represent associated atelectasis and/or pneumonia. Paracentesis Ultrasound 03/02/25 14:08 IMPRESSION: 1. Successful ultrasound-guided paracentesis yielding 5000 mL of francisco javier-colored fluid. Abdomen/Pelvis CT 03/03/25 12:23 Impression: [place] catheter in satisfactory position within urinary bladder. Moderate to large right pleural effusion and small left pleural effusion with bibasilar atelectasis, right worse than left. Small bilateral nonobstructing renal stones. No hydronephrosis or ureteral stone. Bilateral ureteral stents. Possible mild cirrhotic change of liver. Moderate abdominopelvic ascites. Thyroid Ultrasound 03/04/25 11:46 IMPRESSION: Coarse heterogeneous echogenicity detected diffusely throughout the entirety of the thyroid gland, without increased vascularity to suggest thyroiditis. Benign subcentimeter cysts (TR 1) detected bilaterally for which no further follow-up is needed. In a patient with elevated TSH and elevated free T4, the suggestion of a possible pituitary gland disorder would be more common than inherent thyroid disease. Labs Labs: Laboratory Results - last 24 hr 03/04/25 03/05/25 17:48 03:59 WBC 6.1 RBC 2.24 L Hgb 7.7 L Hct 23.6 L MCV 105.4 H MCH 34.4 H MCHC 32.6 RDW 15.4 H Plt Count 143 L MPV 10.2 Immature Gran % (Auto) 0.3 Neut % (Auto) 71.5 Lymph % (Auto) 16.5 L [place] % (Auto) 6.5 Eos % (Auto) 4.1 Baso % (Auto) 1.1 Lymph # (Auto) 1.01 [place] # (Auto) 0.4 Eos # (Auto) 0.3 Baso # (Auto) 0.1 Abs Immat Gran (auto) 0.02 Absolute Neuts (auto) 4.4 Absolute Nucleated RBC 0.000 Band Neutrophils % Not Reportable Nucleated RBC % 0.0 Platelet Estimate Slightly decreased % Immature Plt Fraction 2.5 Hypochromasia 1+ Anisocytosis 1+ Ovalocytes 1+ Schistocytes Rare Sodium 130 L Potassium 4.2 Chloride 99 Carbon Dioxide 24 Anion Gap 7 BUN 56 H Creatinine 4.08 H Estim Creat Clear Calc 15 Estimated GFR 14 L Glucose 119 H Calcium 7.9 L Phosphorus 4.7 H Magnesium 2.3 Total Bilirubin 1.8 H AST 34 ALT 16 Alkaline Phosphatase 199 H Total Protein 6.0 L Albumin 2.8 L Nasal MRSA (PCR) Not detected
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
[2025-03-05] MEDS: MULTIVITAMINS THERAPEUTIC TAB (*BKC) 1 TABLET PO (20:13)
[2025-03-05 21:47] LABS: Albumin Peritoneal Fluid 1.3 g/dL
[2025-03-06] VITALS (14 sets, daily range): BP systolic 85–98; BP diastolic 48–63; PULSE 62–81; RESP 18–20; TEMP 36.2–37.1; O2SAT 96–100; BMI 34.4
[2025-03-06] MEDS: HYDROcodone/acetaminophen (*CRX) 5-325 MG TABLET 1 TAB PO (04:22)
[2025-03-06 05:34] LABS: Basophils Absolute Auto 0.1 K/mm3 (0.0-0.1); Eosinophils Absolute Auto 0.2 K/mm3 (0-0.3); Eosinophils Percent Auto 3.7 % (0-4.4); Hematocrit 23.8 % (42.0-52.0); Hemoglobin 7.9 g/dL (14.0-18.0); Immature Granulocyte Absolute 0.02 K/mm3 (0.00-0.031); Immature Granulocyte Percent A 0.3 % (0-0.5); Immature Platelet Fraction Pct 2.7 % (0.9-11.2); Lymphocytes Absolute Auto 0.97 K/mm3 (0.9-3.2); Lymphocytes Percent Auto 15.8 % (18.3-44.2); Mean Corpuscular HGB Conc 33.2 g/dl (32-36); Mean Corpuscular Hemoglobin 34.6 pg (26-34); Mean Corpuscular Volume 104.4 fl (80-100); Mean Platelet Volume 10.4 fl (7.4-10.4); Monocytes Absolute Auto 0.4 K/mm3 (0.1-0.6); Monocytes Percent Auto 6.2 % (2.6-8.5); Neutrophils Absolute Auto 4.5 K/mm3 (1.3-6.7); Platelet Count Result 139 k/mm3 (150-375); Red Blood Count 2.28 M/mm3 (4.6-6.20); Red Cell Distribution Width 15.7 % (11.5-14.5); White Blood Count 6.1 K/mm3 (4.5-10.0)
[2025-03-06 05:38] LABS: Prothrombin Time 23.2 Seconds (11.1-14.7)
[2025-03-06 05:54] LABS: Alanine Aminotransferase 15 U/L (6-50); Albumin Level 2.9 g/dL (3.5-5.1); Alkaline Phosphatase 197 U/L (38-126); Anion Gap 12 mmol/L (4-12); Aspartate Amino Transferase 31 U/L (17-59); Bilirubin,Total 2.2 mg/dL (0.2-1.3); Blood Urea Nitrogen 56 mg/dL (9-20); Calcium 8.2 mg/dL (8.4-10.2); Carbon Dioxide 19 mmol/L (22-30); Chloride 98 mmol/L (98-107); Estimated CRCL calculation 14 ml/min; Estimated Glomerular Filt Rate 13; Glucose 108 mg/dL (65-110); Magnesium 2.3 mg/dL (1.6-2.3); Potassium 4.3 mmol/L (3.4-5.0); Sodium 129 mmol/L (137-145)
[2025-03-06] MEDS: CEFEPIME 1 GM/NS 50 ML 1 GM/50 ML BAG IVPB ×2 (06:15→17:24)
[2025-03-06] MEDS: MAGNESIUM OXIDE 400 MG TABLET PO ×2 (08:52→17:23)
[2025-03-06] MEDS: MIDODRINE HCL 10 MG TABLET PO ×3 (08:52→17:23)
[2025-03-06] MEDS: FOLIC ACID 1 MG TABLET PO (08:52)
[2025-03-06] MEDS: CHOLECALCIFEROL 5,000 UNITS TABLET 5000 UNITS BY MOUTH (08:52)
[2025-03-06] MEDS: TAMSULOSIN HCL 0.4 MG CAPSULE PO (08:53)
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
--- NOTE | 2025-03-06 10:05 | WPDGIPROGNO ---
Progress Note: A&P Assessment and Plan (1) Cirrhosis: Qualifiers: Hepatic cirrhosis type: unspecified hepatic cirrhosis Ascites presence: with ascites Qualified Code(s): K74.60 - Unspecified cirrhosis of liver; R18.8 - Other ascites Code(s): K74.60 - Unspecified cirrhosis of liver Status: Acute Assessment and Plan: pt with problems already discussed, poor prognosis. To decide about retirement comfort measures vs. dialysis. (2) Liver failure: Code(s): K72.90 - Hepatic failure, unspecified without coma Status: Acute (3) Spontaneous bacterial peritonitis: Code(s): K65.2 - Spontaneous bacterial peritonitis Status: Acute Subjective Date/time seen: 03/06/25 10:05 Interval history: PAtient continues to do poorly, although he is completely conscious mentally and cooperative. Exam Narrative: Unchanged from previous Objective Data Vital Signs Vital Signs: Vital Signs - 24 hr 03/05/25 11:45 03/05/25 12:00 03/05/25 12:00 Temperature 97.5 F L Pulse Rate 82 79 Respiratory Rate 16 Blood Pressure 91/53 L Pulse Oximetry 98 Oxygen Delivery Room Air 03/05/25 14:00 03/05/25 16:00 03/05/25 16:00 Temperature Pulse Rate 73 73 Respiratory Rate Blood Pressure Pulse Oximetry Oxygen Delivery Room Air 03/05/25 16:00 03/05/25 18:00 03/05/25 19:38 Temperature 97.7 F 97.9 F Pulse Rate 68 74 71 Respiratory Rate 20 17 Blood Pressure 105/56 L 103/65 Pulse Oximetry 99 98 Oxygen Delivery 03/05/25 20:00 03/05/25 20:00 03/05/25 22:00 Temperature Pulse Rate 68 67 Respiratory Rate Blood Pressure Pulse Oximetry Oxygen Delivery Room Air 03/05/25 23:11 03/05/25 23:14 03/06/25 00:00 Temperature 98.0 F Pulse Rate 84 73 Respiratory Rate 17 Blood Pressure 96/60 L Pulse Oximetry 97 Oxygen Delivery Room Air 03/06/25 04:00 03/06/25 04:00 03/06/25 04:00 Temperature 97.8 F Pulse Rate 74 66 Respiratory Rate 18 Blood Pressure 98/52 L Pulse Oximetry 97 Oxygen Delivery Room Air 03/06/25 06:00 03/06/25 08:00 03/06/25 08:00 Temperature 98.7 F Pulse Rate 65 63 Respiratory Rate 20 Blood Pressure 89/49 L Pulse Oximetry 97 Oxygen Delivery Room Air 03/06/25 08:00 03/06/25 10:00 Temperature Pulse Rate 69 78 Respiratory Rate Blood Pressure Pulse Oximetry Oxygen Delivery Intake/Output Intake/Output: Intake & Output 03/03/25 03/04/25 03/05/25 03/06/25 23:59 23:59 23:59 23:59 Intake Total 1983.8 3179.9 1070 Output Total 175 0 200 100 Balance 1808.8 3179.9 870 -100 Meds/Results Medications: Active Medications Generic Name Dose Route Start Last Admin Trade Name Freq PRN Reason Stop Dose Admin Acetaminophen 325 mg 02/27/25 16:47 Acetaminophen 325 Mg Tablet PO Q6H PRN Mild Pain (1-3) or Fever Hydrocodone Bitart/Acetaminophen 1 tab 03/03/25 16:51 03/06/25 04:22 Hydrocodone/Acetaminophen (*Crx) 5-325 Mg Tablet PO 1 tab Q6H PRN Administration Pain Rated 7-10 Benzonatate 100 mg 02/27/25 16:47 02/27/25 21:12 Benzonatate 100 Mg Capsule PO 100 mg TID PRN Administration Cough Enoxaparin Sodium 30 mg 03/05/25 09:00 03/06/25 09:31 Enoxaparin 30 Mg/0.3 Ml Syringe SUB-Q Not Given DAILY PABLO Folic Acid 1 mg 02/28/25 09:00 03/06/25 08:52 Folic Acid 1 Mg Tablet PO 1 mg QAM PABLO Administration Guaifenesin 600 mg 02/27/25 16:47 02/27/25 21:12 Guaifenesin 12 Hr 600 Mg Tabcr PO 600 mg Q12HR PRN Administration Congestion Cefepime HCl 1 gm in 50 mls @ 100 mls/hr 02/28/25 06:00 03/06/25 06:15 Maxipime 1 Gm/Ns 50 Ml IVPB 03/06/25 23:59 100 mls/hr Q12H PABLO Administration Albumin Human 100 mls @ 60 mls/hr 03/04/25 12:05 03/05/25 23:51 Albutein IVPB 60 mls/hr Q12H PABLO Administration Levothyroxine Sodium 75 mcg 02/28/25 06:30 03/03/25 05:50 Levothyroxine Sodium 75 Mcg Tablet PO 75 mcg DAILY@0630 [facility] Administration Magnesium Oxide 400 mg 02/28/25 09:00 03/06/25 08:52 Magnesium Oxide 400 Mg Tablet PO 400 mg BID PABLO Administration Metoprolol Succinate 50 mg 02/28/25 09:00 03/06/25 09:31 Metoprolol Succinate Ext Rel 50 Mg Tabcr PO Not Given DAILY [facility] Midodrine 10 mg 03/04/25 17:25 03/06/25 08:52 Midodrine Hcl 10 Mg Tablet PO 10 mg TID [facility] Administration Multivitamins Therapeutic 1 tablet 02/27/25 22:25 03/05/25 20:13 Multivitamins Therapeutic Tab (*Bkc) PO 1 tablet QHS [facility] Administration Oxybutynin Chloride 5 mg 03/03/25 15:09 03/03/25 15:23 Oxybutynin Chloride 5 Mg Tablet PO 5 mg BID PRN Administration spasm Tamsulosin HCl 0.4 mg 02/28/25 09:00 03/06/25 08:53 Tamsulosin Hcl 0.4 Mg Capsule PO 0.4 mg QAM [facility] Administration Vitamin D 5,000 units 02/28/25 09:00 03/06/25 08:52 Cholecalciferol 5,000 Units Tablet BY MOUTH 5,000 units DAILY PABLO Administration Radiology Results: ITS Impressions Chest X-Ray 02/27/25 13:59 IMPRESSION: 1. No significant interval change in bilateral small pleural effusions, right greater than left with opacities at the right lung base which could represent associated atelectasis and/or pneumonia. Paracentesis Ultrasound 03/02/25 14:08 IMPRESSION: 1. Successful ultrasound-guided paracentesis yielding 5000 mL of francisco javier-colored fluid. Abdomen/Pelvis CT 03/03/25 12:23 Impression: Majano catheter in satisfactory position within urinary bladder. Moderate to large right pleural effusion and small left pleural effusion with bibasilar atelectasis, right worse than left. Small bilateral nonobstructing renal stones. No hydronephrosis or ureteral stone. Bilateral ureteral stents. Possible mild cirrhotic change of liver. Moderate abdominopelvic ascites. Thyroid Ultrasound 03/04/25 11:46 IMPRESSION: Coarse heterogeneous echogenicity detected diffusely throughout the entirety of the thyroid gland, without increased vascularity to suggest thyroiditis. Benign subcentimeter cysts (TR 1) detected bilaterally for which no further follow-up is needed. In a patient with elevated TSH and elevated free T4, the suggestion of a possible pituitary gland disorder would be more common than inherent thyroid disease. Labs Labs: Laboratory Results - last 24 hr 03/02/25 03/06/25 13:28 04:46 WBC 6.1 RBC 2.28 L Hgb 7.9 L Hct 23.8 L MCV 104.4 H MCH 34.6 H MCHC 33.2 RDW 15.7 H Plt Count 139 L MPV 10.4 Immature Gran % (Auto) 0.3 Neut % (Auto) 73.0 Lymph % (Auto) 15.8 L [place] % (Auto) 6.2 Eos % (Auto) 3.7 Baso % (Auto) 1.0 Lymph # (Auto) 0.97 [place] # (Auto) 0.4 Eos # (Auto) 0.2 Baso # (Auto) 0.1 Abs Immat Gran (auto) 0.02 Absolute Neuts (auto) 4.5 Absolute Nucleated RBC 0.000 Nucleated RBC % 0.0 % Immature Plt Fraction 2.7 PT 23.2 H INR 2.0 Sodium 129 L Potassium 4.3 Chloride 98 Carbon Dioxide 19 L Anion Gap 12 BUN 56 H Creatinine 4.46 H Estim Creat Clear Calc 14 Estimated GFR 13 L Glucose 108 Calcium 8.2 L Magnesium 2.3 Total Bilirubin 2.2 H AST 31 ALT 15 Alkaline Phosphatase 197 H Total Protein 6.0 L Albumin 2.9 L Peritoneal Albumin 1.3
--- NOTE | 2025-03-06 11:25 | P.PNNP_ITS ---
Progress Note: A&P Assessment and Plan (1) Acute kidney injury: Code(s): N17.9 - Acute kidney failure, unspecified Status: Acute Assessment and Plan: * continue to worsen/deteriorate... * noted anuria as well * trend of creatinine is as noted * had been running ~ 1.1 - 1.5mg/l since 2020 * averaging ~ 1.1 - 1.3mg/dl in 2022 - 2023 * creatinine up to 2.0mg/dl in November 2024 * hospitalized in early January 2025 for LISA with creatinine of 3.6mg/dl secondary to obstructive uropathy -- bilateral ureteric stones with bilateral hydronephrotic changes present and had bilateral ureteral stents placed with creatinine of 1.13mg/dl at discharge * noted creatinine of 1.41mg/dl on 02/03/25 (outpatient labs) * creatinine ~ 2.0mg/dl on discharge in early February 2025 (02/19/25) * admission creatinine 2.82mg/dl * evaluation on previous and this hospitalization noted: * 2+ protein and 3+ blood on UA (due to stents?) * urine eosinophils negative previously; rare on this admission * 1300mg of proteinuria * urine electrolytes prerenal * CT A/P without obstruction but evidence of volume overload * suspect fluctuating/worsening creatinine/renal function is a manifestation of his liver disease/physiology: * decreased effective circulating volume leading to chronic prerenal azotemia worsened by his need for diuretic therapy in an effort to maintain stability his volume status... * beginnings of or transition to hepatorenal syndrome is of concern - no response to midodrine and octreotide to date.... * follow trend of renal function and UOP (2) Stage 3b chronic kidney disease: Code(s): N18.32 - Chronic kidney disease, stage 3b Status: Chronic Assessment and Plan: * as apparent on last hospitalization * creatinine seems to stabilize around 2ish range * see #1 (3) Volume overload: Qualifiers: Hypervolemia type: unspecified Qualified Code(s): E87.70 - Fluid overload, unspecified Code(s): E87.70 - Fluid overload, unspecified Status: Acute Assessment and Plan: * noted anasarca on admission * due to LISA, CKD, CHF, liver disease or combo of all... * evaluation noted: * Echo noted - EF 65-70%, indeterminate diastolic function, mild-mod aortic insufficiency, and moderate pulmonary HTN * RUQ US showing fatty infiltration of the liver with a possible nodular contour and ascites * coagulopathy noted * hypoalbuminemia noted as well * suspect liver cirrhosis major component with regard to fluid status * attempted IV albumin chased by IV diuretics but hemodynamics will not tolerate * s/p large volume paracentesis on 03/02 * repeat paracentesis likely today (4) Pneumonia: Qualifiers: Pneumonia type: due to unspecified organism Laterality: unspecified laterality Lung location: unspecified part of lung Qualified Code(s): J18.9 - Pneumonia, unspecified organism Code(s): J18.9 - Pneumonia, unspecified organism Status: Suspected Assessment and Plan: * Chest x-ray showing small bilateral small pleural effusion right greater than left with opacities at the right lung base which could represent pneumonia * Abdomen/pelvis CT showed a increase mild ground-glass opacity in the lingula which could represent pneumonia * follow culture data - negative to date * on antibiotics (5) Cirrhosis: Qualifiers: Hepatic cirrhosis type: unspecified hepatic cirrhosis Ascites presence: with ascites Qualified Code(s): K74.60 - Unspecified cirrhosis of liver; R18.8 - Other ascites Code(s): K74.60 - Unspecified cirrhosis of liver Status: Acute Assessment and Plan: * noted by imaging studies to date * history of heavy alcohol use in the past * also on amiodarone for an extensive period of time * hepatitis panel negative * GI following as well (6) Ascites: Qualifiers: Ascites type: other type Qualified Code(s): R18.8 - Other ascites Code(s): R18.8 - Other ascites Status: Acute Assessment and Plan: * presumably secondary to liver cirrhosis * last paracentesis done on (02/16): * removal of 2650mL of fluid * s/p large volume paracentesis on 03/02 * gram stain noted * culture negative to date (7) Coagulopathy: Code(s): D68.9 - Coagulation defect, unspecified Status: Acute Assessment and Plan: * slow improvement if not stable * INR 7.6 on admission * Xarelto on hold * Vitamin K given * follow trend (8) Anemia: Qualifiers: Anemia type: unspecified type Qualified Code(s): D64.9 - Anemia, unspecified Code(s): D64.9 - Anemia, unspecified Status: Chronic Assessment and Plan: * chronic issue * probably due to liver disease, LISA, and CKD along with acute illness * follows with Hem/Onc * evaluation noted: * B12/folate normal by last hospitalization * anemia studies (from Nov 2024) with adequate iron stores * follow trend of H/H (9) Atrial fibrillation: Qualifiers: Atrial fibrillation type: paroxysmal Qualified Code(s): I48.0 - Paroxysmal atrial fibrillation Code(s): I48.91 - Unspecified atrial fibrillation Status: Chronic Assessment and Plan: * rate control strategy * holding xarelto given elevated INR * Echo noted (10) Kidney stones: Code(s): N20.0 - Calculus of kidney Status: Acute Assessment and Plan: * noted history of bilateral ureteric stones with bilateral hydronephrotic changes by CT scan (early January 2025) * s/p cystoscopy, bilateral retrogrades, bilateral ureteroscopy with stone extraction, and bilateral ureteral stent placement (on 01/20/25) by Urology. * imaging this admission showing resolution of the hydronephrosis * will need Urology follow-up regarding stent removal Will continue to follow. L Subjective Date/time seen: 03/06/25 11:25 Interval history: Follow-up for acute kidney injury/acute renal failure on chronic kidney disease. Renal function/creatinine continues to deteriorate in association with oliguria/anuria; noted plans later today for another large volume paracentesis; mentation and breathing appear relatively stable; he and his son are still trying to decide the next step in terms of therapy (dialysis versus comfort care versus something else...) along with goals of care. Exam 2 Narrative: General: elderly and chronically ill-appearing male in NAD Heart: IRRR, normal S1 and S2; no rub Lungs: clear anteriorly; decreased at bases Abdomen: soft, nontender, mild distension with + fluid wave, positive bowel sounds Extremities: no cyanosis or clubbing; 2 - 3+ edema Skin: warm and dry Objective Data Vital Signs Vital Signs: Vital Signs Temp Pulse Resp BP Pulse Ox O2 Del Method 03/06/25 11:00 97.2 F L 77 20 94/63 L 98 03/06/25 10:00 78 03/06/25 08:00 69 03/06/25 08:00 Room Air 03/06/25 08:00 98.7 F 63 20 89/49 L 97 03/06/25 06:00 65 03/06/25 04:00 97.8 F 66 18 98/52 L 97 03/06/25 04:00 Room Air 03/06/25 04:00 74 03/06/25 00:00 73 03/05/25 23:14 98.0 F 84 17 96/60 L 97 03/05/25 23:11 Room Air 03/05/25 22:00 67 03/05/25 20:00 68 03/05/25 20:00 Room Air 03/05/25 19:38 97.9 F 71 17 103/65 98 Intake/Output Intake/Output: Intake & Output 03/03/25 03/04/25 03/05/25 03/06/25 23:59 23:59 23:59 23:59 Intake Total 1983.8 3179.9 1070 640 Output Total 175 0 200 4300 Balance 1808.8 3179.9 870 -3660 Meds/Results Medications: Active Medications Generic Name Dose Route Start Last Admin Trade Name Freq PRN Reason Stop Dose Admin Acetaminophen 325 mg 02/27/25 16:47 Acetaminophen 325 Mg Tablet PO Q6H PRN Mild Pain (1-3) or Fever Hydrocodone Bitart/Acetaminophen 1 tab 03/03/25 16:51 03/06/25 04:22 Hydrocodone/Acetaminophen (*Crx) 5-325 Mg Tablet PO 1 tab Q6H PRN Administration Pain Rated 7-10 Benzonatate 100 mg 02/27/25 16:47 02/27/25 21:12 Benzonatate 100 Mg Capsule PO 100 mg TID PRN Administration Cough Enoxaparin Sodium 30 mg 03/05/25 09:00 03/06/25 09:31 Enoxaparin 30 Mg/0.3 Ml Syringe SUB-Q Not Given DAILY PABLO Folic Acid 1 mg 02/28/25 09:00 03/06/25 08:52 Folic Acid 1 Mg Tablet PO 1 mg QAM PABLO Administration Guaifenesin 600 mg 02/27/25 16:47 02/27/25 21:12 Guaifenesin 12 Hr 600 Mg Tabcr PO 600 mg Q12HR PRN Administration Congestion Cefepime HCl 1 gm in 50 mls @ 100 mls/hr 02/28/25 06:00 03/06/25 17:24 Maxipime 1 Gm/Ns 50 Ml IVPB 03/06/25 23:59 100 mls/hr Q12H PABLO Administration Albumin Human 100 mls @ 60 mls/hr 03/04/25 12:05 03/06/25 13:11 Albutein IVPB Infused Q12H PABLO Infusion Levothyroxine Sodium 75 mcg 02/28/25 06:30 03/03/25 05:50 Levothyroxine Sodium 75 Mcg Tablet PO 75 mcg DAILY@0630 PABLO Administration Magnesium Oxide 400 mg 02/28/25 09:00 03/06/25 17:23 Magnesium Oxide 400 Mg Tablet PO 400 mg BID PABLO Administration Metoprolol Succinate 50 mg 02/28/25 09:00 03/06/25 09:31 Metoprolol Succinate Ext Rel 50 Mg Tabcr PO Not Given DAILY COUNTS INCLUDE 234 BEDS AT THE [facility] Midodrine 10 mg 03/04/25 17:25 03/06/25 17:23 Midodrine Hcl 10 Mg Tablet PO 10 mg TID PABLO Administration Multivitamins Therapeutic 1 tablet 02/27/25 22:25 03/05/25 20:13 Multivitamins Therapeutic Tab (*Bkc) PO 1 tablet QHS PABLO Administration Oxybutynin Chloride 5 mg 03/03/25 15:09 03/03/25 15:23 Oxybutynin Chloride 5 Mg Tablet PO 5 mg BID PRN Administration spasm Tamsulosin HCl 0.4 mg 02/28/25 09:00 03/06/25 08:53 Tamsulosin Hcl 0.4 Mg Capsule PO 0.4 mg QAM COUNTS INCLUDE 234 BEDS AT THE [facility] Administration Vitamin D 5,000 units 02/28/25 09:00 03/06/25 08:52 Cholecalciferol 5,000 Units Tablet BY MOUTH 5,000 units DAILY PABLO Administration Radiology Results: ITS Impressions Chest X-Ray 02/27/25 13:59 IMPRESSION: 1. No significant interval change in bilateral small pleural effusions, right greater than left with opacities at the right lung base which could represent associated atelectasis and/or pneumonia. Abdomen/Pelvis CT 03/03/25 12:23 Impression: Majano catheter in satisfactory position within urinary bladder. Moderate to large right pleural effusion and small left pleural effusion with bibasilar atelectasis, right worse than left. Small bilateral nonobstructing renal stones. No hydronephrosis or ureteral stone. Bilateral ureteral stents. Possible mild cirrhotic change of liver. Moderate abdominopelvic ascites. Thyroid Ultrasound 03/04/25 11:46 IMPRESSION: Coarse heterogeneous echogenicity detected diffusely throughout the entirety of the thyroid gland, without increased vascularity to suggest thyroiditis. Benign subcentimeter cysts (TR 1) detected bilaterally for which no further follow-up is needed. In a patient with elevated TSH and elevated free T4, the suggestion of a possible pituitary gland disorder would be more common than inherent thyroid disease. Paracentesis Ultrasound 03/06/25 17:09 IMPRESSION: 1. Successful ultrasound-guided paracentesis yielding 4200 mL of yellowish fluid. Labs Labs: Laboratory Tests 03/06/25 04:46 03/06/25 04:46 PT 23.2 H INR 2.0 Calcium 8.2 L Magnesium 2.3 Total Bilirubin 2.2 H AST 31 ALT 15 Alkaline Phosphatase 197 H Total Protein 6.0 L Albumin 2.9 L
--- NOTE | 2025-03-06 12:08 | PCOTNOTE ---
Attempted to see pt.. Per nursing, pt. is getting paracenteses in the next hour and suggests to wait to see pt until after procedure. Following
[2025-03-06] MEDS: ALBUMIN HUMAN 25% 25 GM/100 ML 100 ML IVPB (12:17)
--- NOTE | 2025-03-06 15:02 | P.PNIM_ITS ---
Progress Note: A&P Assessment and Plan (1) Volume overload: Qualifiers: Hypervolemia type: unspecified Qualified Code(s): E87.70 - Fluid overload, unspecified Code(s): E87.70 - Fluid overload, unspecified Status: Acute Assessment and Plan: * Chest x-ray showing bilateral small pleural effusions right greater than left with opacities in the right lung base which could represent pneumonia * Abdomen/pelvis CT shown anasarca with very small left and small to moderate- sized right pleural effusion, moderate amount of ascites and prominent body wall and less severe mesenteric and retroperitoneal edema, increased mild ground-glass opacity in the lingula which could represent pneumonia, a few tiny nonobstructive renal stones without hydronephrosis or obstruction, infrarenal IVC filter in place * ECHO from 02/14 EF 65-70% * Continue holding [facility] following (2) Ascites: Qualifiers: Ascites type: other type Qualified Code(s): R18.8 - Other ascites Code(s): R18.8 - Other ascites Status: Acute Assessment and Plan: Peritoneal fluid culture no organism growing continue Cefepime , Discontinued Vanc f/u cultures (3) Cirrhosis: Qualifiers: Hepatic cirrhosis type: unspecified hepatic cirrhosis Ascites presence: with ascites Qualified Code(s): K74.60 - Unspecified cirrhosis of liver; R18.8 - Other ascites Code(s): K74.60 - Unspecified cirrhosis of liver Status: Acute Assessment and Plan: * Total bili initially 2.8 now up to 3.1 * Alkaline phosphate 278> 221 * Ammonia 42 on admission, now down to less than 9 * UA showed 1+ urine bilirubin * GI following and recommending Midodrine and Octreotide infusion for hepatorenal syndrome * Continue Albumin per GI recommendation * Unable to get a true MELD score due to supratherapeutic INR * Underwent paracentesis and removed 5 L * Pending fluid analysis, f/u cultures (4) Supratherapeutic INR: Code(s): R79.1 - Abnormal coagulation profile Status: Acute Assessment and Plan: * Initial INR 7.6 now down to 2.2 * Underwent thoracentesis and removed 5 L * Xarelto stopped and he will need therapeutic Lovenox per GI recommendation as the only option for anticoagulation considering his liver failure. * s/p vitamin K today and repeat INR * Continue to trend (5) Acute kidney injury: Code(s): N17.9 - Acute kidney failure, unspecified Status: Acute Assessment and Plan: * ?Hepatorenal syndrome * Cr 4.08 from 2.82 * Baseline creatinine appears to be 1.13-1.17, EGFR 60 to greater than 60 * Continue Octreotide, Midodrine and Albumin * Patient may need Dialysis * Nephrology following (6) Pneumonia: Qualifiers: Pneumonia type: due to unspecified organism Laterality: unspecified laterality Lung location: unspecified part of lung Qualified Code(s): J18.9 - Pneumonia, unspecified organism Code(s): J18.9 - Pneumonia, unspecified organism Status: Suspected Assessment and Plan: * Chest x-ray showing small bilateral small pleural effusion right greater than left with opacities at the right lung base which could represent pneumonia * Abdomen/pelvis CT showed a increase mild ground-glass opacity in the lingula which could represent pneumonia * On Cefepime * s/p Vanc as MRSA negative, completed Azithromycin ' * Continue Cefepime (7) Urinary tract infection: Qualifiers: Hematuria presence: without hematuria Urinary tract infection type: acute cystitis Qualified Code(s): N30.00 - Acute cystitis without hematuria Code(s): N39.0 - Urinary tract infection, site not specified Status: Acute Assessment and Plan: * UA shown brown urine color, turbid appearance, 1+ protein, 1+ urine blood, 1+ urine bilirubin, 2+ leukocyte, greater than 100 urine RBC, 21-50 urine WBC, 3- 5 urine casts, rare urine eosinophils. * Urine culture was obtained and pending * Continue cefepime (8) Chronic anemia: Code(s): D64.9 - Anemia, unspecified Status: Chronic Assessment and Plan: Likely secondary to cirrhosis of the liver and chronic kidney disease, chronic * Hemoglobin 7.7, MCV 102.4 * Anemia workup in the past showed normal iron, ferritin, vitamin B12, folate * TSH and T4 elevated * B12/folate elevated, isat 67 * monitor H and H (9) Hypertension: Qualifiers: Hypertension type: primary hypertension Qualified Code(s): I10 - Essential (primary) hypertension Code(s): I10 - Essential (primary) hypertension Status: Chronic Assessment and Plan: * Blood pressure ranging 104/65 to 110/70 * Patient is not currently on any home medications for hypertension * Continue to trend (10) CHEO (obstructive sleep apnea): Code(s): G47.33 - Obstructive sleep apnea (adult) (pediatric) Status: Chronic Assessment and Plan: * Continue CPAP (11) Atrial fibrillation: Qualifiers: Atrial fibrillation type: paroxysmal Qualified Code(s): I48.0 - Paroxysmal atrial fibrillation Code(s): I48.91 - Unspecified atrial fibrillation Status: Chronic Assessment and Plan: * Patient initially in AFib RVR on arrival to the ED * EKG showing AFib with a rate of 87, QTC 524, right bundle branch block, left posterior fascicular block * Xarelto stopped--Will need therapeutic Lovenox when appropriate as this is the only anticoagulation recommended with liver failure. * Holding Metoprolol due to low blood pressure * Continue cardiac monitoring (12) Hypothyroidism: Code(s): E03.9 - Hypothyroidism, unspecified Status: Acute Assessment and Plan: * Continue Synthroid * TSH adn T4 elevated * hold levothyroxine * monitor thyroid studies * US thyroid unremarkable * MRI brain once patient is stable Plan Acute urinary retention Urology consulted and rowe was inserted but patient complained of pain and it was removed yesterday passing urine and urology following DVT prophylaxis on Sq Lovenox Patient is waiting to discuss with son about hospice. Subjective Date/time seen: 03/06/25 15:02 Interval history: Patient is now considering hospice and noted he is waiting to discuss it further with his son Review of Systems Review of Systems: All systems reviewed & are unremarkable except as noted in HPI and below Exam Narrative: General: In no acute distress, well nourished Head: atraumatic, no encephalopathy Eyes: PERRLA, sclera clear ENT: moist mucous membranes, nasal passages clear Neck: supple, no JVD, no adenopathy, trachea midline Cardiac: Normal S1 and S2. No murmur, gallops or friction rubs, peripheral pulses intact. Respiratory: Bilateral crackles in bases, no adventitious lung sounds, currently on room air Gastrointestinal: firm, taunt, non-tender, normoactive bowel sounds. Anasarca present : voiding without difficulty. Extremities: moves all extremities well, 2+ pitting edema BLE Skin: clean, dry, intact. No wounds or lesions. Neuro: Alert and oriented x4, cranial nerves intact, no neuro deficits. Psych: normal mood, normal affect, interactive Const: General: comfortable and no acute distress Other: , male, nontoxic appearance, chronically ill-appearing HENMT: Face/Nose/Sinus: Normal nares present Mouth: Yes moist mucous membranes Eyes: General: appearance normal, both eyes and all related structures Sclera: sclerae normal Pupils: Equal, round and reactive pupils present EOM: EOMs intact bilaterally Resp: Effort & Inspection: normal respiratory effort Other: Bibasilar rales. Cardio: Rate: regular rate Rhythm: regular rhythm Other: S1-S2 present without murmur, rub, ectopy GI: Other: rounded abdomen, slight fluid wave with palpation. No tenderness with palpation. Normoactive bowel sounds in all quadrants. : Other: External catheter in place, T colored output. Neuro: Cranial nerves: Yes Equal, round and reactive pupils present Speech: normal speech Motor exam (neuro): 5/5 motor strength present throughout Sensory Exam: normal sensation Other: A&O x4 Extrem: Other: 3+ pitting edema starting at upper thigh s to ankles bilaterally, R>L. Psych: Mental Status: mental status grossly normal Affect: normal affect Other: Good insight and judgment, pleasant. Objective Data Vital Signs Vital Signs: Vital Signs - 24 hr 03/05/25 16:00 03/05/25 16:00 03/05/25 16:00 Temperature 97.7 F Pulse Rate 73 68 Respiratory Rate 20 Blood Pressure 105/56 L Pulse Oximetry 99 Oxygen Delivery Room Air 03/05/25 18:00 03/05/25 19:38 03/05/25 20:00 Temperature 97.9 F Pulse Rate 74 71 Respiratory Rate 17 Blood Pressure 103/65 Pulse Oximetry 98 Oxygen Delivery Room Air 03/05/25 20:00 03/05/25 22:00 03/05/25 23:11 Temperature Pulse Rate 68 67 Respiratory Rate Blood Pressure Pulse Oximetry Oxygen Delivery Room Air 03/05/25 23:14 03/06/25 00:00 03/06/25 04:00 Temperature 98.0 F Pulse Rate 84 73 74 Respiratory Rate 17 Blood Pressure 96/60 L Pulse Oximetry 97 Oxygen Delivery 03/06/25 04:00 03/06/25 04:00 03/06/25 06:00 Temperature 97.8 F Pulse Rate 66 65 Respiratory Rate 18 Blood Pressure 98/52 L Pulse Oximetry 97 Oxygen Delivery Room Air 03/06/25 08:00 03/06/25 08:00 03/06/25 08:00 Temperature 98.7 F Pulse Rate 63 69 Respiratory Rate 20 Blood Pressure 89/49 L Pulse Oximetry 97 Oxygen Delivery Room Air 03/06/25 10:00 03/06/25 12:00 03/06/25 12:00 Temperature 97.2 F L Pulse Rate 78 77 79 Respiratory Rate 20 Blood Pressure 94/63 L Pulse Oximetry 98 Oxygen Delivery 03/06/25 12:00 03/06/25 14:45 03/06/25 14:47 Temperature 97.7 F Pulse Rate 73 75 Respiratory Rate 20 Blood Pressure 92/48 L Pulse Oximetry 97 Oxygen Delivery Room Air Intake/Output Intake/Output: Intake & Output 03/03/25 03/04/25 03/05/25 03/06/25 23:59 23:59 23:59 23:59 Intake Total 1983.8 3179.9 1070 200 Output Total 175 0 200 4300 Balance 1808.8 3179.9 870 -4100 Meds/Results Medications: Active Medications Generic Name Dose Route Start Last Admin Trade Name Freq PRN Reason Stop Dose Admin Acetaminophen 325 mg 02/27/25 16:47 Acetaminophen 325 Mg Tablet PO Q6H PRN Mild Pain (1-3) or Fever Hydrocodone Bitart/Acetaminophen 1 tab 03/03/25 16:51 03/06/25 04:22 Hydrocodone/Acetaminophen (*Crx) 5-325 Mg Tablet PO 1 tab Q6H PRN Administration Pain Rated 7-10 Benzonatate 100 mg 02/27/25 16:47 02/27/25 21:12 Benzonatate 100 Mg Capsule PO 100 mg TID PRN Administration Cough Enoxaparin Sodium 30 mg 03/05/25 09:00 03/06/25 09:31 Enoxaparin 30 Mg/0.3 Ml Syringe SUB-Q Not Given DAILY PABLO Folic Acid 1 mg 02/28/25 09:00 03/06/25 08:52 Folic Acid 1 Mg Tablet PO 1 mg QAM PABLO Administration Guaifenesin 600 mg 02/27/25 16:47 02/27/25 21:12 Guaifenesin 12 Hr 600 Mg Tabcr PO 600 mg Q12HR PRN Administration Congestion Cefepime HCl 1 gm in 50 mls @ 100 mls/hr 02/28/25 06:00 03/06/25 06:15 Maxipime 1 Gm/Ns 50 Ml IVPB 03/06/25 23:59 100 mls/hr Q12H [facility] Administration Albumin Human 100 mls @ 60 mls/hr 03/04/25 12:05 03/06/25 13:11 Albutein IVPB Infused Q12H [facility] Infusion Levothyroxine Sodium 75 mcg 02/28/25 06:30 03/03/25 05:50 Levothyroxine Sodium 75 Mcg Tablet PO 75 mcg DAILY@0630 [facility] Administration Magnesium Oxide 400 mg 02/28/25 09:00 03/06/25 08:52 Magnesium Oxide 400 Mg Tablet PO 400 mg BID PABLO Administration Metoprolol Succinate 50 mg 02/28/25 09:00 03/06/25 09:31 Metoprolol Succinate Ext Rel 50 Mg Tabcr PO Not Given DAILY [facility] Midodrine 10 mg 03/04/25 17:25 03/06/25 12:17 Midodrine Hcl 10 Mg Tablet PO 10 mg TID [facility] Administration Multivitamins Therapeutic 1 tablet 02/27/25 22:25 03/05/25 20:13 Multivitamins Therapeutic Tab (*Bkc) PO 1 tablet QHS [facility] Administration Oxybutynin Chloride 5 mg 03/03/25 15:09 03/03/25 15:23 Oxybutynin Chloride 5 Mg Tablet PO 5 mg BID PRN Administration spasm Tamsulosin HCl 0.4 mg 02/28/25 09:00 03/06/25 08:53 Tamsulosin Hcl 0.4 Mg Capsule PO 0.4 mg QAM [facility] Administration Vitamin D 5,000 units 02/28/25 09:00 03/06/25 08:52 Cholecalciferol 5,000 Units Tablet BY MOUTH 5,000 units DAILY PABLO Administration Radiology Results: ITS Impressions Chest X-Ray 02/27/25 13:59 IMPRESSION: 1. No significant interval change in bilateral small pleural effusions, right greater than left with opacities at the right lung base which could represent associated atelectasis and/or pneumonia. Abdomen/Pelvis CT 03/03/25 12:23 Impression: Rowe catheter in satisfactory position within urinary bladder. Moderate to large right pleural effusion and small left pleural effusion with bibasilar atelectasis, right worse than left. Small bilateral nonobstructing renal stones. No hydronephrosis or ureteral stone. Bilateral ureteral stents. Possible mild cirrhotic change of liver. Moderate abdominopelvic ascites. Thyroid Ultrasound 03/04/25 11:46 IMPRESSION: Coarse heterogeneous echogenicity detected diffusely throughout the entirety of the thyroid gland, without increased vascularity to suggest thyroiditis. Benign subcentimeter cysts (TR 1) detected bilaterally for which no further follow-up is needed. In a patient with elevated TSH and elevated free T4, the suggestion of a possible pituitary gland disorder would be more common than inherent thyroid disease. Labs Labs: Laboratory Results - last 24 hr 03/02/25 03/06/25 13:28 04:46 WBC 6.1 RBC 2.28 L Hgb 7.9 L Hct 23.8 L MCV 104.4 H MCH 34.6 H MCHC 33.2 RDW 15.7 H Plt Count 139 L MPV 10.4 Immature Gran % (Auto) 0.3 Neut % (Auto) 73.0 Lymph % (Auto) 15.8 L Hickman % (Auto) 6.2 Eos % (Auto) 3.7 Baso % (Auto) 1.0 Lymph # (Auto) 0.97 Hickman # (Auto) 0.4 Eos # (Auto) 0.2 Baso # (Auto) 0.1 Abs Immat Gran (auto) 0.02 Absolute Neuts (auto) 4.5 Absolute Nucleated RBC 0.000 Nucleated RBC % 0.0 % Immature Plt Fraction 2.7 PT 23.2 H INR 2.0 Sodium 129 L Potassium 4.3 Chloride 98 Carbon Dioxide 19 L Anion Gap 12 BUN 56 H Creatinine 4.46 H Estim Creat Clear Calc 14 Estimated GFR 13 L Glucose 108 Calcium 8.2 L Magnesium 2.3 Total Bilirubin 2.2 H AST 31 ALT 15 Alkaline Phosphatase 197 H Total Protein 6.0 L Albumin 2.9 L Peritoneal Albumin 1.3 Quality VTE Prophylaxis VTE prophylaxis: mechanical ordered
[2025-03-06 15:19] LABS: Appearance Peritoneal Fluid Hazy (Clear); Color Peritoneal Fluid Yellow (Colorless); Lymphocytes Peritoneal Fluid 12 %; Macrophages Peritoneal Fluid 66 %; Monocytes Peritoneal Fluid 13 %; Neutrophils Peritoneal Fluid 9 % (0-25); Nucleated Cells Peritoneal Flu 85 /uL (0-500); RBC Peritoneal Fluid < 2000 /uL (0-10000); Source Peritoneal Fluid Peritoneal Fluid
[2025-03-06 20:04] LABS: LDH Peritoneal Fluid 48 U/L (<63)
[2025-03-06] MEDS: MULTIVITAMINS THERAPEUTIC TAB (*BKC) 1 TABLET PO (20:04)
[2025-03-07] VITALS (15 sets, daily range): BP systolic 78–109; BP diastolic 35–64; PULSE 59–107; RESP 16–22; TEMP 36.4–36.8; O2SAT 97–100
[2025-03-07] MEDS: ALBUMIN HUMAN 25% 25 GM/100 ML 100 ML IVPB ×2 (00:04→12:26)
[2025-03-07 05:59] LABS: INR 2.1; Prothrombin Time 23.5 Seconds (11.1-14.7)
[2025-03-07 08:34] LABS: Basophils Absolute Auto 0.1 K/mm3 (0.0-0.1); Eosinophils Absolute Auto 0.2 K/mm3 (0-0.3); Eosinophils Percent Auto 2.9 % (0-4.4); Hematocrit 24.8 % (42.0-52.0); Hemoglobin 8.2 g/dL (14.0-18.0); Immature Granulocyte Absolute 0.02 K/mm3 (0.00-0.031); Immature Granulocyte Percent A 0.3 % (0-0.5); Lymphocytes Absolute Auto 0.81 K/mm3 (0.9-3.2); Lymphocytes Percent Auto 13.2 % (18.3-44.2); Mean Corpuscular HGB Conc 33.1 g/dl (32-36); Mean Corpuscular Hemoglobin 35.3 pg (26-34); Mean Corpuscular Volume 106.9 fl (80-100); Mean Platelet Volume 10.6 fl (7.4-10.4); Monocytes Absolute Auto 0.4 K/mm3 (0.1-0.6); Monocytes Percent Auto 7.2 % (2.6-8.5); Neutrophils Absolute Auto 4.6 K/mm3 (1.3-6.7); Neutrophils Percent Auto 75.4 % (45.5-73.1); Platelet Count Result 120 k/mm3 (150-375); Red Blood Count 2.32 M/mm3 (4.6-6.20); Red Cell Distribution Width 15.9 % (11.5-14.5); White Blood Count 6.1 K/mm3 (4.5-10.0)
--- NOTE | 2025-03-07 08:39 | PCOTNOTE ---
Attempted OT evaluation this AM. Patient adamantly refusing any/all activity. Provided education on the benefits of therapy He states, I don't care about walking. Will continue to attempt.
[2025-03-07 08:40] LABS: Alanine Aminotransferase 14 U/L (6-50); Albumin Level 2.9 g/dL (3.5-5.1); Alkaline Phosphatase 178 U/L (38-126); Anion Gap 10 mmol/L (4-12); Aspartate Amino Transferase 29 U/L (17-59); Bilirubin,Total 2.3 mg/dL (0.2-1.3); Blood Urea Nitrogen 61 mg/dL (9-20); Calcium 8.1 mg/dL (8.4-10.2); Carbon Dioxide 22 mmol/L (22-30); Chloride 100 mmol/L (98-107); Estimated CRCL calculation 12 ml/min; Estimated Glomerular Filt Rate 11; Glucose 118 mg/dL (65-110); Potassium 4.5 mmol/L (3.4-5.0); Sodium 132 mmol/L (137-145)
--- NOTE | 2025-03-07 08:50 | PCPTNOTE ---
Attempted PT evaluation. Patient adamantly refusing any/all activity. Will follow
[2025-03-07] MEDS: CHOLECALCIFEROL 5,000 UNITS TABLET 5000 UNITS BY MOUTH (08:52)
[2025-03-07] MEDS: FOLIC ACID 1 MG TABLET PO (08:52)
[2025-03-07] MEDS: ENOXAPARIN 30 MG/0.3 ML SYRINGE SUB-Q (08:52)
[2025-03-07] MEDS: METOPROLOL SUCCINATE EXT REL 50 MG TABCR PO (08:52)
[2025-03-07] MEDS: MAGNESIUM OXIDE 400 MG TABLET PO ×2 (08:52→16:23)
[2025-03-07] MEDS: TAMSULOSIN HCL 0.4 MG CAPSULE PO (08:52)
[2025-03-07] MEDS: MIDODRINE HCL 10 MG TABLET PO ×3 (08:52→16:23)
[2025-03-07 08:58] LABS: Platelet Estimate Slightly Decreased (Adequate); Schistocytes Rare
[2025-03-07 08:59] LABS: Burr Cells 1+; Hypochromasia 1+; Ovalocytes 1+
--- NOTE | 2025-03-07 11:35 | P.PNNP_ITS ---
Progress Note: A&P Assessment and Plan (1) Acute kidney injury: Code(s): N17.9 - Acute kidney failure, unspecified Status: Acute Assessment and Plan: * continue to worsen/deteriorate... * noted anuria as well * trend of creatinine is as noted * had been running ~ 1.1 - 1.5mg/l since 2020 * averaging ~ 1.1 - 1.3mg/dl in 2022 - 2023 * creatinine up to 2.0mg/dl in November 2024 * hospitalized in early January 2025 for LISA with creatinine of 3.6mg/dl secondary to obstructive uropathy -- bilateral ureteric stones with bilateral hydronephrotic changes present and had bilateral ureteral stents placed with creatinine of 1.13mg/dl at discharge * noted creatinine of 1.41mg/dl on 02/03/25 (outpatient labs) * creatinine ~ 2.0mg/dl on discharge in early February 2025 (02/19/25) * admission creatinine 2.82mg/dl * evaluation on previous and this hospitalization noted: * 2+ protein and 3+ blood on UA (due to stents?) * urine eosinophils negative previously; rare on this admission * 1300mg of proteinuria * urine electrolytes prerenal * CT A/P without obstruction but evidence of volume overload * suspect fluctuating/worsening creatinine/renal function is a manifestation of his liver disease/physiology: * decreased effective circulating volume leading to chronic prerenal azotemia worsened by his need for diuretic therapy in an effort to maintain stability his volume status... * beginnings of or transition to hepatorenal syndrome is of concern - no response to midodrine and octreotide to date.... * follow trend of renal function and UOP (2) Stage 3b chronic kidney disease: Code(s): N18.32 - Chronic kidney disease, stage 3b Status: Chronic Assessment and Plan: * as apparent on last hospitalization * creatinine seems to stabilize around 2ish range * see #1 (3) Volume overload: Qualifiers: Hypervolemia type: unspecified Qualified Code(s): E87.70 - Fluid overload, unspecified Code(s): E87.70 - Fluid overload, unspecified Status: Acute Assessment and Plan: * noted anasarca on admission * due to LISA, CKD, CHF, liver disease or combo of all... * evaluation noted: * Echo noted - EF 65-70%, indeterminate diastolic function, mild-mod aortic insufficiency, and moderate pulmonary HTN * RUQ US showing fatty infiltration of the liver with a possible nodular contour and ascites * coagulopathy noted * hypoalbuminemia noted as well * suspect liver cirrhosis major component with regard to fluid status * attempted IV albumin chased by IV diuretics but hemodynamics will not tolerate * s/p large volume paracentesis on 03/02 * repeat paracentesis likely today (4) Pneumonia: Qualifiers: Pneumonia type: due to unspecified organism Laterality: unspecified laterality Lung location: unspecified part of lung Qualified Code(s): J18.9 - Pneumonia, unspecified organism Code(s): J18.9 - Pneumonia, unspecified organism Status: Suspected Assessment and Plan: * Chest x-ray showing small bilateral small pleural effusion right greater than left with opacities at the right lung base which could represent pneumonia * Abdomen/pelvis CT showed a increase mild ground-glass opacity in the lingula which could represent pneumonia * follow culture data - negative to date * on antibiotics (5) Cirrhosis: Qualifiers: Hepatic cirrhosis type: unspecified hepatic cirrhosis Ascites presence: with ascites Qualified Code(s): K74.60 - Unspecified cirrhosis of liver; R18.8 - Other ascites Code(s): K74.60 - Unspecified cirrhosis of liver Status: Acute Assessment and Plan: * noted by imaging studies to date * history of heavy alcohol use in the past * also on amiodarone for an extensive period of time * hepatitis panel negative * GI following as well (6) Ascites: Qualifiers: Ascites type: other type Qualified Code(s): R18.8 - Other ascites Code(s): R18.8 - Other ascites Status: Acute Assessment and Plan: * presumably secondary to liver cirrhosis * last paracentesis done on (02/16): * removal of 2650mL of fluid * s/p large volume paracentesis on 03/02 * gram stain noted * culture negative to date (7) Coagulopathy: Code(s): D68.9 - Coagulation defect, unspecified Status: Acute Assessment and Plan: * slow improvement if not stable * INR 7.6 on admission * Xarelto on hold * Vitamin K given * follow trend (8) Anemia: Qualifiers: Anemia type: unspecified type Qualified Code(s): D64.9 - Anemia, unspecified Code(s): D64.9 - Anemia, unspecified Status: Chronic Assessment and Plan: * chronic issue * probably due to liver disease, LISA, and CKD along with acute illness * follows with Hem/Onc * evaluation noted: * B12/folate normal by last hospitalization * anemia studies (from Nov 2024) with adequate iron stores * follow trend of H/H (9) Atrial fibrillation: Qualifiers: Atrial fibrillation type: paroxysmal Qualified Code(s): I48.0 - Paroxysmal atrial fibrillation Code(s): I48.91 - Unspecified atrial fibrillation Status: Chronic Assessment and Plan: * rate control strategy * holding xarelto given elevated INR * Echo noted (10) Kidney stones: Code(s): N20.0 - Calculus of kidney Status: Acute Assessment and Plan: * noted history of bilateral ureteric stones with bilateral hydronephrotic changes by CT scan (early January 2025) * s/p cystoscopy, bilateral retrogrades, bilateral ureteroscopy with stone extraction, and bilateral ureteral stent placement (on 01/20/25) by Urology. * imaging this admission showing resolution of the hydronephrosis * will need Urology follow-up regarding stent removal Will continue to follow. L Subjective Date/time seen: 03/07/25 11:35 Interval history: Follow-up for acute kidney injury/acute renal failure on chronic kidney disease. The patient states he feels the same at the time of my visit; renal function/creatinine continues to decline with minimal urine output; as far as I can tell, he really has not made any formal decision regarding what he wants to do with regard to pursuing dialysis versus possible hospice but he is talking it over with his son; furthermore, he does not appear very motivated to do anything else but stay in bed -- has been refusing to work with PT/OT; s/p repeat paracentesis yesterday afternoon and tolerated this intervention reasonably well. Exam 2 Narrative: General: elderly and chronically ill-appearing male in NAD Heart: IRRR, normal S1 and S2; no rub Lungs: clear anteriorly; decreased at bases Abdomen: soft, nontender, mild distension with + fluid wave, positive bowel sounds Extremities: no cyanosis or clubbing; 2 - 3+ edema Skin: warm and intact Objective Data Vital Signs Vital Signs: Vital Signs Temp Pulse Resp BP Pulse Ox O2 Del Method 03/07/25 11:28 97.8 F 77 22 H 78/42 L 97 03/07/25 10:00 67 03/07/25 08:52 73 03/07/25 08:00 92 03/07/25 08:00 97 Room Air 03/07/25 08:00 97.6 F 95 22 H 109/52 L 97 03/07/25 06:00 73 03/07/25 04:00 86 03/07/25 04:00 Room Air 03/07/25 04:00 98.3 F 70 16 95/55 L 99 03/07/25 02:00 70 03/07/25 00:00 73 03/07/25 00:00 Room Air 03/07/25 00:00 98.3 F 69 16 88/49 L 97 03/06/25 22:15 97 Autopap 03/06/25 22:00 81 03/06/25 20:00 66 03/06/25 20:00 Room Air 03/06/25 19:05 97.6 F 73 20 93/49 L 100 03/06/25 18:00 68 Intake/Output Intake/Output: Intake & Output 03/04/25 03/05/25 03/06/25 03/07/25 23:59 23:59 23:59 23:59 Intake Total 3179.9 1070 640 445 Output Total 0 200 4300 150 Balance 3179.9 870 -3660 295 Meds/Results Medications: Active Medications Generic Name Dose Route Start Last Admin Trade Name Freq PRN Reason Stop Dose Admin Acetaminophen 325 mg 02/27/25 16:47 Acetaminophen 325 Mg Tablet PO Q6H PRN Mild Pain (1-3) or Fever Hydrocodone Bitart/Acetaminophen 1 tab 03/03/25 16:51 03/06/25 04:22 Hydrocodone/Acetaminophen (*Crx) 5-325 Mg Tablet PO 1 tab Q6H PRN Administration Pain Rated 7-10 Benzonatate 100 mg 02/27/25 16:47 02/27/25 21:12 Benzonatate 100 Mg Capsule PO 100 mg TID PRN Administration Cough Enoxaparin Sodium 30 mg 03/05/25 09:00 03/07/25 08:52 Enoxaparin 30 Mg/0.3 Ml Syringe SUB-Q 30 mg DAILY PABLO Administration Folic Acid 1 mg 02/28/25 09:00 03/07/25 08:52 Folic Acid 1 Mg Tablet PO 1 mg QAM PABLO Administration Guaifenesin 600 mg 02/27/25 16:47 02/27/25 21:12 Guaifenesin 12 Hr 600 Mg Tabcr PO 600 mg Q12HR PRN Administration Congestion Albumin Human 100 mls @ 60 mls/hr 03/04/25 12:05 03/07/25 12:26 Albutein IVPB 60 mls/hr Q12H [facility]LO Administration Levothyroxine Sodium 75 mcg 02/28/25 06:30 03/03/25 05:50 Levothyroxine Sodium 75 Mcg Tablet PO 75 mcg DAILY@0630 [facility]LO Administration Magnesium Oxide 400 mg 02/28/25 09:00 03/07/25 16:23 Magnesium Oxide 400 Mg Tablet PO 400 mg BID PABLO Administration Metoprolol Succinate 50 mg 02/28/25 09:00 03/07/25 08:52 Metoprolol Succinate Ext Rel 50 Mg Tabcr PO 50 mg DAILY [facility] Administration Midodrine 10 mg 03/04/25 17:25 03/07/25 16:23 Midodrine Hcl 10 Mg Tablet PO 10 mg TID [facility] Administration Multivitamins Therapeutic 1 tablet 02/27/25 22:25 03/06/25 20:04 Multivitamins Therapeutic Tab (*Bkc) PO 1 tablet QHS P[facility]LO Administration Oxybutynin Chloride 5 mg 03/03/25 15:09 03/03/25 15:23 Oxybutynin Chloride 5 Mg Tablet PO 5 mg BID PRN Administration spasm Tamsulosin HCl 0.4 mg 02/28/25 09:00 03/07/25 08:52 Tamsulosin Hcl 0.4 Mg Capsule PO 0.4 mg QAM [facility] Administration Vitamin D 5,000 units 02/28/25 09:00 03/07/25 08:52 Cholecalciferol 5,000 Units Tablet BY MOUTH 5,000 units DAILY PABLO Administration Radiology Results: ITS Impressions Chest X-Ray 02/27/25 13:59 IMPRESSION: 1. No significant interval change in bilateral small pleural effusions, right greater than left with opacities at the right lung base which could represent associated atelectasis and/or pneumonia. Abdomen/Pelvis CT 03/03/25 12:23 Impression: Majano catheter in satisfactory position within urinary bladder. Moderate to large right pleural effusion and small left pleural effusion with bibasilar atelectasis, right worse than left. Small bilateral nonobstructing renal stones. No hydronephrosis or ureteral stone. Bilateral ureteral stents. Possible mild cirrhotic change of liver. Moderate abdominopelvic ascites. Thyroid Ultrasound 03/04/25 11:46 IMPRESSION: Coarse heterogeneous echogenicity detected diffusely throughout the entirety of the thyroid gland, without increased vascularity to suggest thyroiditis. Benign subcentimeter cysts (TR 1) detected bilaterally for which no further follow-up is needed. In a patient with elevated TSH and elevated free T4, the suggestion of a possible pituitary gland disorder would be more common than inherent thyroid disease. Paracentesis Ultrasound 03/06/25 17:09 IMPRESSION: 1. Successful ultrasound-guided paracentesis yielding 4200 mL of yellowish fluid. Labs Labs: Laboratory Tests 03/07/25 03:43 03/07/25 03:43 PT 23.5 H INR 2.1 Calcium 8.1 L Total Bilirubin 2.3 H AST 29 ALT 14 Alkaline Phosphatase 178 H Total Protein 6.0 L Albumin 2.9 L Microbiology 03/02/25 13:28 Ascites Fluid Anaerobic Culture - Preliminary 03/02/25 13:28 Ascites Fluid Aerobic Culture - Final 03/02/25 13:28 Abdominal Fluid Anaerobic Culture - Preliminary 03/02/25 13:28 Abdominal Fluid Aerobic Culture - Final
--- NOTE | 2025-03-07 12:11 | P.PNIM_ITS ---
Progress Note: A&P Assessment and Plan (1) Volume overload: Qualifiers: Hypervolemia type: unspecified Qualified Code(s): E87.70 - Fluid overload, unspecified Code(s): E87.70 - Fluid overload, unspecified Status: Acute Assessment and Plan: * Chest x-ray showing bilateral small pleural effusions right greater than left with opacities in the right lung base which could represent pneumonia * Abdomen/pelvis CT shown anasarca with very small left and small to moderate- sized right pleural effusion, moderate amount of ascites and prominent body wall and less severe mesenteric and retroperitoneal edema, increased mild ground-glass opacity in the lingula which could represent pneumonia, a few tiny nonobstructive renal stones without hydronephrosis or obstruction, infrarenal IVC filter in place * ECHO from 02/14 EF 65-70% * Continue holding Bumex * Patient is ambivalent of hospice and has not made up his mind about dialysis Nephrology following (2) Ascites: Qualifiers: Ascites type: other type Qualified Code(s): R18.8 - Other ascites Code(s): R18.8 - Other ascites Status: Acute Assessment and Plan: Peritoneal fluid culture negative continue Cefepime , Discontinued Vanc f/u cultures (3) Cirrhosis: Qualifiers: Hepatic cirrhosis type: unspecified hepatic cirrhosis Ascites presence: with ascites Qualified Code(s): K74.60 - Unspecified cirrhosis of liver; R18.8 - Other ascites Code(s): K74.60 - Unspecified cirrhosis of liver Status: Acute Assessment and Plan: * Total bili initially 2.8 now up to 3.1 * Alkaline phosphate 278> 221 * Ammonia 42 on admission, now down to less than 9 * UA showed 1+ urine bilirubin * GI following and recommending Midodrine and Octreotide infusion for hepatorenal syndrome * Continue Albumin per GI recommendation * Unable to get a true MELD score due to supratherapeutic INR * Underwent paracentesis and removed 5 L * Pending fluid analysis, f/u cultures (4) Supratherapeutic INR: Code(s): R79.1 - Abnormal coagulation profile Status: Acute Assessment and Plan: * Initial INR 7.6 now down to 2.2 * Underwent thoracentesis and removed 5 L * Xarelto stopped and he will need therapeutic Lovenox per GI recommendation as the only option for anticoagulation considering his liver failure. * s/p vitamin K today and repeat INR * Continue to trend (5) Acute kidney injury: Code(s): N17.9 - Acute kidney failure, unspecified Status: Acute Assessment and Plan: * ?Hepatorenal syndrome * Cr 5.19 from 2.82 * Baseline creatinine appears to be 1.13-1.17, EGFR 60 to greater than 60 * Continue Octreotide, Midodrine and Albumin * Patient may need Dialysis * Nephrology following (6) Pneumonia: Qualifiers: Pneumonia type: due to unspecified organism Laterality: unspecified laterality Lung location: unspecified part of lung Qualified Code(s): J18.9 - Pneumonia, unspecified organism Code(s): J18.9 - Pneumonia, unspecified organism Status: Suspected Assessment and Plan: * Chest x-ray showing small bilateral small pleural effusion right greater than left with opacities at the right lung base which could represent pneumonia * Abdomen/pelvis CT showed a increase mild ground-glass opacity in the lingula which could represent pneumonia * On Cefepime * s/p Vanc as MRSA negative, completed Azithromycin ' * Continue Cefepime (7) Urinary tract infection: Qualifiers: Hematuria presence: without hematuria Urinary tract infection type: acute cystitis Qualified Code(s): N30.00 - Acute cystitis without hematuria Code(s): N39.0 - Urinary tract infection, site not specified Status: Acute Assessment and Plan: * UA shown brown urine color, turbid appearance, 1+ protein, 1+ urine blood, 1+ urine bilirubin, 2+ leukocyte, greater than 100 urine RBC, 21-50 urine WBC, 3- 5 urine casts, rare urine eosinophils. * Urine culture was obtained and pending * Continue cefepime (8) Chronic anemia: Code(s): D64.9 - Anemia, unspecified Status: Chronic Assessment and Plan: Likely secondary to cirrhosis of the liver and chronic kidney disease, chronic * Hemoglobin 7.7, MCV 102.4 * Anemia workup in the past showed normal iron, ferritin, vitamin B12, folate * TSH and T4 elevated * B12/folate elevated, isat 67 * monitor H and H (9) Hypertension: Qualifiers: Hypertension type: primary hypertension Qualified Code(s): I10 - Essential (primary) hypertension Code(s): I10 - Essential (primary) hypertension Status: Chronic Assessment and Plan: * Blood pressure ranging 104/65 to 110/70 * Patient is not currently on any home medications for hypertension * Continue to trend (10) CHEO (obstructive sleep apnea): Code(s): G47.33 - Obstructive sleep apnea (adult) (pediatric) Status: Chronic Assessment and Plan: * Continue CPAP (11) Atrial fibrillation: Qualifiers: Atrial fibrillation type: paroxysmal Qualified Code(s): I48.0 - Paroxysmal atrial fibrillation Code(s): I48.91 - Unspecified atrial fibrillation Status: Chronic Assessment and Plan: * Patient initially in AFib RVR on arrival to the ED * EKG showing AFib with a rate of 87, QTC 524, right bundle branch block, left posterior fascicular block * Xarelto stopped--Will need therapeutic Lovenox when appropriate as this is the only anticoagulation recommended with liver failure. * Holding Metoprolol due to low blood pressure * Continue cardiac monitoring (12) Hypothyroidism: Code(s): E03.9 - Hypothyroidism, unspecified Status: Acute Assessment and Plan: * Continue Synthroid * TSH adn T4 elevated * hold levothyroxine * monitor thyroid studies * US thyroid unremarkable * MRI brain once patient is stable Plan Acute urinary retention Urology consulted and rowe was inserted but patient complained of pain and it was removed passing urine and urology following DVT prophylaxis on Sq Lovenox Patient yet to make up his mind of about hospice vs dialysis Subjective Date/time seen: 03/07/25 12:11 Interval history: Patient still ambivalent about hospice vs continuing treatment Review of Systems Review of Systems: All systems reviewed & are unremarkable except as noted in HPI and below Exam Narrative: General: In no acute distress, well nourished Head: atraumatic, no encephalopathy Eyes: PERRLA, sclera clear ENT: moist mucous membranes, nasal passages clear Neck: supple, no JVD, no adenopathy, trachea midline Cardiac: Normal S1 and S2. No murmur, gallops or friction rubs, peripheral pulses intact. Respiratory: Bilateral crackles in bases, no adventitious lung sounds, currently on room air Gastrointestinal: firm, taunt, non-tender, normoactive bowel sounds. Anasarca present : voiding without difficulty. Extremities: moves all extremities well, 2+ pitting edema BLE Skin: clean, dry, intact. No wounds or lesions. Neuro: Alert and oriented x4, cranial nerves intact, no neuro deficits. Psych: normal mood, normal affect, interactive Const: General: comfortable and no acute distress Other: , male, nontoxic appearance, chronically ill-appearing HENMT: Face/Nose/Sinus: Normal nares present Mouth: Yes moist mucous membranes Eyes: General: appearance normal, both eyes and all related structures Sclera: sclerae normal Pupils: Equal, round and reactive pupils present EOM: EOMs intact bilaterally Resp: Effort & Inspection: normal respiratory effort Other: Bibasilar rales. Cardio: Rate: regular rate Rhythm: regular rhythm Other: S1-S2 present without murmur, rub, ectopy GI: Other: rounded abdomen, slight fluid wave with palpation. No tenderness with palpation. Normoactive bowel sounds in all quadrants. : Other: External catheter in place, T colored output. Neuro: Cranial nerves: Yes Equal, round and reactive pupils present Speech: normal speech Motor exam (neuro): 5/5 motor strength present throughout Sensory Exam: normal sensation Other: A&O x4 Extrem: Other: 3+ pitting edema starting at upper thigh s to ankles bilaterally, R>L. Psych: Mental Status: mental status grossly normal Affect: normal affect Other: Good insight and judgment, pleasant. Objective Data Vital Signs Vital Signs: Vital Signs - 24 hr 03/06/25 14:45 03/06/25 14:47 03/06/25 16:00 Temperature 97.7 F Pulse Rate 73 75 Respiratory Rate 20 Blood Pressure 92/48 L Pulse Oximetry 97 Oxygen Delivery Room Air 03/06/25 16:00 03/06/25 16:00 03/06/25 18:00 Temperature 97.5 F L Pulse Rate 65 62 68 Respiratory Rate 20 Blood Pressure 85/54 L Pulse Oximetry 96 Oxygen Delivery 03/06/25 19:05 03/06/25 20:00 03/06/25 20:00 Temperature 97.6 F Pulse Rate 73 66 Respiratory Rate 20 Blood Pressure 93/49 L Pulse Oximetry 100 Oxygen Delivery Room Air 03/06/25 22:00 03/06/25 22:15 03/07/25 00:00 Temperature 98.3 F Pulse Rate 81 69 Respiratory Rate 16 Blood Pressure 88/49 L Pulse Oximetry 97 97 Oxygen Delivery Autopap 03/07/25 00:00 03/07/25 00:00 03/07/25 02:00 Temperature Pulse Rate 73 70 Respiratory Rate Blood Pressure Pulse Oximetry Oxygen Delivery Room Air 03/07/25 04:00 03/07/25 04:00 03/07/25 04:00 Temperature 98.3 F Pulse Rate 70 86 Respiratory Rate 16 Blood Pressure 95/55 L Pulse Oximetry 99 Oxygen Delivery Room Air 03/07/25 06:00 03/07/25 08:00 03/07/25 08:00 Temperature 97.6 F Pulse Rate 73 95 Respiratory Rate 22 H Blood Pressure 109/52 L Pulse Oximetry 97 97 Oxygen Delivery Room Air 03/07/25 08:00 03/07/25 08:52 03/07/25 10:00 Temperature Pulse Rate 92 73 67 Respiratory Rate Blood Pressure Pulse Oximetry Oxygen Delivery 03/07/25 11:48 Temperature 97.8 F Pulse Rate 77 Respiratory Rate 22 H Blood Pressure 78/42 L Pulse Oximetry 97 Oxygen Delivery Intake/Output Intake/Output: Intake & Output 03/04/25 03/05/25 03/06/25 03/07/25 23:59 23:59 23:59 23:59 Intake Total 3179.9 1070 640 220 Output Total 0 200 4300 150 Balance 3179.9 870 -3660 70 Meds/Results Medications: Active Medications Generic Name Dose Route Start Last Admin Trade Name Freq PRN Reason Stop Dose Admin Acetaminophen 325 mg 02/27/25 16:47 Acetaminophen 325 Mg Tablet PO Q6H PRN Mild Pain (1-3) or Fever Hydrocodone Bitart/Acetaminophen 1 tab 03/03/25 16:51 03/06/25 04:22 Hydrocodone/Acetaminophen (*Crx) 5-325 Mg Tablet PO 1 tab Q6H PRN Administration Pain Rated 7-10 Benzonatate 100 mg 02/27/25 16:47 02/27/25 21:12 Benzonatate 100 Mg Capsule PO 100 mg TID PRN Administration Cough Enoxaparin Sodium 30 mg 03/05/25 09:00 03/07/25 08:52 Enoxaparin 30 Mg/0.3 Ml Syringe SUB-Q 30 mg DAILY PABLO Administration Folic Acid 1 mg 02/28/25 09:00 03/07/25 08:52 Folic Acid 1 Mg Tablet PO 1 mg QAM PABLO Administration Guaifenesin 600 mg 02/27/25 16:47 02/27/25 21:12 Guaifenesin 12 Hr 600 Mg Tabcr PO 600 mg Q12HR PRN Administration Congestion Albumin Human 100 mls @ 60 mls/hr 03/04/25 12:05 03/07/25 00:04 Albutein IVPB 60 mls/hr Q12H PABLO Administration Levothyroxine Sodium 75 mcg 02/28/25 06:30 03/03/25 05:50 Levothyroxine Sodium 75 Mcg Tablet PO 75 mcg DAILY@0630 PABLO Administration Magnesium Oxide 400 mg 02/28/25 09:00 03/07/25 08:52 Magnesium Oxide 400 Mg Tablet PO 400 mg BID PABLO Administration Metoprolol Succinate 50 mg 02/28/25 09:00 03/07/25 08:52 Metoprolol Succinate Ext Rel 50 Mg Tabcr PO 50 mg DAILY PABLO Administration Midodrine 10 mg 03/04/25 17:25 03/07/25 08:52 Midodrine Hcl 10 Mg Tablet PO 10 mg TID PABLO Administration Multivitamins Therapeutic 1 tablet 02/27/25 22:25 03/06/25 20:04 Multivitamins Therapeutic Tab (*Bkc) PO 1 tablet QHS PABLO Administration Oxybutynin Chloride 5 mg 03/03/25 15:09 03/03/25 15:23 Oxybutynin Chloride 5 Mg Tablet PO 5 mg BID PRN Administration spasm Tamsulosin HCl 0.4 mg 02/28/25 09:00 03/07/25 08:52 Tamsulosin Hcl 0.4 Mg Capsule PO 0.4 mg QAM PABLO Administration Vitamin D 5,000 units 02/28/25 09:00 03/07/25 08:52 Cholecalciferol 5,000 Units Tablet BY MOUTH 5,000 units DAILY PABLO Administration Radiology Results: ITS Impressions Chest X-Ray 02/27/25 13:59 IMPRESSION: 1. No significant interval change in bilateral small pleural effusions, right greater than left with opacities at the right lung base which could represent associated atelectasis and/or pneumonia. Abdomen/Pelvis CT 03/03/25 12:23 Impression: Rowe catheter in satisfactory position within urinary bladder. Moderate to large right pleural effusion and small left pleural effusion with bibasilar atelectasis, right worse than left. Small bilateral nonobstructing renal stones. No hydronephrosis or ureteral stone. Bilateral ureteral stents. Possible mild cirrhotic change of liver. Moderate abdominopelvic ascites. Thyroid Ultrasound 03/04/25 11:46 IMPRESSION: Coarse heterogeneous echogenicity detected diffusely throughout the entirety of the thyroid gland, without increased vascularity to suggest thyroiditis. Benign subcentimeter cysts (TR 1) detected bilaterally for which no further follow-up is needed. In a patient with elevated TSH and elevated free T4, the suggestion of a possible pituitary gland disorder would be more common than inherent thyroid disease. Paracentesis Ultrasound 03/06/25 17:09 IMPRESSION: 1. Successful ultrasound-guided paracentesis yielding 4200 mL of yellowish fluid. Labs Labs: Laboratory Results - last 24 hr 03/02/25 03/06/25 03/07/25 13:28 13:55 03:43 WBC 6.1 RBC 2.32 L Hgb 8.2 L Hct 24.8 L MCV 106.9 H MCH 35.3 H MCHC 33.1 RDW 15.9 H Plt Count 120 L MPV 10.6 H Immature Gran % (Auto) 0.3 Neut % (Auto) 75.4 H Lymph % (Auto) 13.2 L [place] % (Auto) 7.2 Eos % (Auto) 2.9 Baso % (Auto) 1.0 Lymph # (Auto) 0.81 L [place] # (Auto) 0.4 Eos # (Auto) 0.2 Baso # (Auto) 0.1 Abs Immat Gran (auto) 0.02 Absolute Neuts (auto) 4.6 Absolute Nucleated RBC 0.000 Band Neutrophils % Not Reportable Nucleated RBC % 0.0 Platelet Estimate Slightly decreased Hypochromasia 1+ Ovalocytes 1+ Mariia Cells 1+ Schistocytes Rare PT INR Sodium 132 L Potassium 4.5 Chloride 100 Carbon Dioxide 22 Anion Gap 10 BUN 61 H Creatinine 5.19 H Estim Creat Clear Calc 12 Estimated GFR 11 L Glucose 118 H Calcium 8.1 L Total Bilirubin 2.3 H AST 29 ALT 14 Alkaline Phosphatase 178 H Total Protein 6.0 L Albumin 2.9 L Peritoneal Source Peritoneal fluid Peritoneal Color Yellow Peritoneal Appearance Hazy A Peritoneal RBC < 2000 Periton Nuc Cells 85 Periton Neutrophils 9 Periton Lymphocytes 12 Peritoneal Monocytes 13 Periton Macrophages 66 Peritoneal LDH 48 03/07/25 03:49 WBC RBC Hgb Hct MCV MCH MCHC RDW Plt Count MPV Immature Gran % (Auto) Neut % (Auto) Lymph % (Auto) [place] % (Auto) Eos % (Auto) Baso % (Auto) Lymph # (Auto) [place] # (Auto) Eos # (Auto) Baso # (Auto) Abs Immat Gran (auto) Absolute Neuts (auto) Absolute Nucleated RBC Band Neutrophils % Nucleated RBC % Platelet Estimate Hypochromasia Ovalocytes Mariai Cells Schistocytes PT 23.5 H INR 2.1 Sodium Potassium Chloride Carbon Dioxide Anion Gap BUN Creatinine Estim Creat Clear Calc Estimated GFR Glucose Calcium Total Bilirubin AST ALT Alkaline Phosphatase Total Protein Albumin Peritoneal Source Peritoneal Color Peritoneal Appearance Peritoneal RBC Periton Nuc Cells Periton Neutrophils Periton Lymphocytes Peritoneal Monocytes Periton Macrophages Peritoneal LDH Quality VTE Prophylaxis VTE prophylaxis: mechanical ordered
--- NOTE | 2025-03-07 14:09 | WPDGIPROGNO ---
Progress Note: A&P Assessment and Plan (1) Spontaneous bacterial peritonitis: Code(s): K65.2 - Spontaneous bacterial peritonitis Status: Acute Assessment and Plan: on treatment, repeat paracentesis yesterday, culture no growth (2) Cirrhosis: Qualifiers: Hepatic cirrhosis type: unspecified hepatic cirrhosis Ascites presence: with ascites Qualified Code(s): K74.60 - Unspecified cirrhosis of liver; R18.8 - Other ascites Code(s): K74.60 - Unspecified cirrhosis of liver Status: Acute Assessment and Plan: alcohol related high MELD with decompensated cirrhosis and worsening renal failure prognosis is guarded (3) Acute kidney injury: Code(s): N17.9 - Acute kidney failure, unspecified Status: Acute Assessment and Plan: probably HRS, treated with midodrine, iv albumin, also treatment of SBP patient does not want dialysis at this point he understood about prognosis (4) Coagulopathy: Code(s): D68.9 - Coagulation defect, unspecified Status: Acute Assessment and Plan: driven by cirrhosis blood thinner was discontinued Subjective Date/time seen: 03/07/25 14:09 Interval history: 4.2L paracentesis yesterday no major changes Review of Systems Review of Systems: All systems reviewed & are unremarkable except as noted in HPI and below Exam Const: Other: chronically ill appearing HENMT: Face/Nose/Sinus: Normal nares present Eyes: General: appearance normal, both eyes and all related structures Neck: Neck: supple Resp: Effort & Inspection: normal respiratory effort Cardio: Rate: regular rate GI: Inspection: distended GI Palp: Yes Soft to palpation and No Tenderness to palpation present (GI) Other: less distended, less ascites after paracentesis Skin: General skin exam: normal color Neuro: Speech: normal speech Extrem: General: pedal edema Psych: Mental Status: mental status grossly normal Objective Data Vital Signs Vital Signs: Vital Signs - 24 hr 03/06/25 14:45 03/06/25 14:47 03/06/25 16:00 Temperature 97.7 F Pulse Rate 73 75 Respiratory Rate 20 Blood Pressure 92/48 L Pulse Oximetry 97 Oxygen Delivery Room Air 03/06/25 16:00 03/06/25 16:00 03/06/25 18:00 Temperature 97.5 F L Pulse Rate 65 62 68 Respiratory Rate 20 Blood Pressure 85/54 L Pulse Oximetry 96 Oxygen Delivery 03/06/25 19:05 03/06/25 20:00 03/06/25 20:00 Temperature 97.6 F Pulse Rate 73 66 Respiratory Rate 20 Blood Pressure 93/49 L Pulse Oximetry 100 Oxygen Delivery Room Air 03/06/25 22:00 03/06/25 22:15 03/07/25 00:00 Temperature 98.3 F Pulse Rate 81 69 Respiratory Rate 16 Blood Pressure 88/49 L Pulse Oximetry 97 97 Oxygen Delivery Autopap 03/07/25 00:00 03/07/25 00:00 03/07/25 02:00 Temperature Pulse Rate 73 70 Respiratory Rate Blood Pressure Pulse Oximetry Oxygen Delivery Room Air 03/07/25 04:00 03/07/25 04:00 03/07/25 04:00 Temperature 98.3 F Pulse Rate 70 86 Respiratory Rate 16 Blood Pressure 95/55 L Pulse Oximetry 99 Oxygen Delivery Room Air 03/07/25 06:00 03/07/25 08:00 03/07/25 08:00 Temperature 97.6 F Pulse Rate 73 95 Respiratory Rate 22 H Blood Pressure 109/52 L Pulse Oximetry 97 97 Oxygen Delivery Room Air 03/07/25 08:00 03/07/25 08:52 03/07/25 10:00 Temperature Pulse Rate 92 73 67 Respiratory Rate Blood Pressure Pulse Oximetry Oxygen Delivery 03/07/25 11:48 03/07/25 12:00 03/07/25 12:00 Temperature 97.8 F Pulse Rate 77 68 Respiratory Rate 22 H Blood Pressure 78/42 L Pulse Oximetry 97 97 Oxygen Delivery Room Air Intake/Output Intake/Output: Intake & Output 03/04/25 03/05/25 03/06/25 03/07/25 23:59 23:59 23:59 23:59 Intake Total 3179.9 1070 640 445 Output Total 0 200 4300 150 Balance 3179.9 870 -3660 295 Meds/Results Medications: Active Medications Generic Name Dose Route Start Last Admin Trade Name Freq PRN Reason Stop Dose Admin Acetaminophen 325 mg 02/27/25 16:47 Acetaminophen 325 Mg Tablet PO Q6H PRN Mild Pain (1-3) or Fever Hydrocodone Bitart/Acetaminophen 1 tab 03/03/25 16:51 03/06/25 04:22 Hydrocodone/Acetaminophen (*Crx) 5-325 Mg Tablet PO 1 tab Q6H PRN Administration Pain Rated 7-10 Benzonatate 100 mg 02/27/25 16:47 02/27/25 21:12 Benzonatate 100 Mg Capsule PO 100 mg TID PRN Administration Cough Enoxaparin Sodium 30 mg 03/05/25 09:00 03/07/25 08:52 Enoxaparin 30 Mg/0.3 Ml Syringe SUB-Q 30 mg DAILY PABLO Administration Folic Acid 1 mg 02/28/25 09:00 03/07/25 08:52 Folic Acid 1 Mg Tablet PO 1 mg QAM PABLO Administration Guaifenesin 600 mg 02/27/25 16:47 02/27/25 21:12 Guaifenesin 12 Hr 600 Mg Tabcr PO 600 mg Q12HR PRN Administration Congestion Albumin Human 100 mls @ 60 mls/hr 03/04/25 12:05 03/07/25 12:26 Albutein IVPB 60 mls/hr Q12H PABLO Administration Levothyroxine Sodium 75 mcg 02/28/25 06:30 03/03/25 05:50 Levothyroxine Sodium 75 Mcg Tablet PO 75 mcg DAILY@0630 PABLO Administration Magnesium Oxide 400 mg 02/28/25 09:00 03/07/25 08:52 Magnesium Oxide 400 Mg Tablet PO 400 mg BID PABLO Administration Metoprolol Succinate 50 mg 02/28/25 09:00 03/07/25 08:52 Metoprolol Succinate Ext Rel 50 Mg Tabcr PO 50 mg DAILY PABLO Administration Midodrine 10 mg 03/04/25 17:25 03/07/25 12:26 Midodrine Hcl 10 Mg Tablet PO 10 mg TID PABLO Administration Multivitamins Therapeutic 1 tablet 02/27/25 22:25 03/06/25 20:04 Multivitamins Therapeutic Tab (*Bkc) PO 1 tablet QHS PABLO Administration Oxybutynin Chloride 5 mg 03/03/25 15:09 03/03/25 15:23 Oxybutynin Chloride 5 Mg Tablet PO 5 mg BID PRN Administration spasm Tamsulosin HCl 0.4 mg 02/28/25 09:00 03/07/25 08:52 Tamsulosin Hcl 0.4 Mg Capsule PO 0.4 mg QAM PABLO Administration Vitamin D 5,000 units 02/28/25 09:00 03/07/25 08:52 Cholecalciferol 5,000 Units Tablet BY MOUTH 5,000 units DAILY PABLO Administration Radiology Results: ITS Impressions Chest X-Ray 02/27/25 13:59 IMPRESSION: 1. No significant interval change in bilateral small pleural effusions, right greater than left with opacities at the right lung base which could represent associated atelectasis and/or pneumonia. Abdomen/Pelvis CT 03/03/25 12:23 Impression: [place] catheter in satisfactory position within urinary bladder. Moderate to large right pleural effusion and small left pleural effusion with bibasilar atelectasis, right worse than left. Small bilateral nonobstructing renal stones. No hydronephrosis or ureteral stone. Bilateral ureteral stents. Possible mild cirrhotic change of liver. Moderate abdominopelvic ascites. Thyroid Ultrasound 03/04/25 11:46 IMPRESSION: Coarse heterogeneous echogenicity detected diffusely throughout the entirety of the thyroid gland, without increased vascularity to suggest thyroiditis. Benign subcentimeter cysts (TR 1) detected bilaterally for which no further follow-up is needed. In a patient with elevated TSH and elevated free T4, the suggestion of a possible pituitary gland disorder would be more common than inherent thyroid disease. Paracentesis Ultrasound 03/06/25 17:09 IMPRESSION: 1. Successful ultrasound-guided paracentesis yielding 4200 mL of yellowish fluid. Labs Labs: Laboratory Results - last 24 hr 03/02/25 03/06/25 03/07/25 13:28 13:55 03:43 WBC 6.1 RBC 2.32 L Hgb 8.2 L Hct 24.8 L MCV 106.9 H MCH 35.3 H MCHC 33.1 RDW 15.9 H Plt Count 120 L MPV 10.6 H Immature Gran % (Auto) 0.3 Neut % (Auto) 75.4 H Lymph % (Auto) 13.2 L [place] % (Auto) 7.2 Eos % (Auto) 2.9 Baso % (Auto) 1.0 Lymph # (Auto) 0.81 L [place] # (Auto) 0.4 Eos # (Auto) 0.2 Baso # (Auto) 0.1 Abs Immat Gran (auto) 0.02 Absolute Neuts (auto) 4.6 Absolute Nucleated RBC 0.000 Band Neutrophils % Not Reportable Nucleated RBC % 0.0 Platelet Estimate Slightly decreased Hypochromasia 1+ Ovalocytes 1+ Mariia Cells 1+ Schistocytes Rare PT INR Sodium 132 L Potassium 4.5 Chloride 100 Carbon Dioxide 22 Anion Gap 10 BUN 61 H Creatinine 5.19 H Estim Creat Clear Calc 12 Estimated GFR 11 L Glucose 118 H Calcium 8.1 L Total Bilirubin 2.3 H AST 29 ALT 14 Alkaline Phosphatase 178 H Total Protein 6.0 L Albumin 2.9 L Peritoneal Source Peritoneal fluid Peritoneal Color Yellow Peritoneal Appearance Hazy A Peritoneal RBC < 2000 Periton Nuc Cells 85 Periton Neutrophils 9 Periton Lymphocytes 12 Peritoneal Monocytes 13 Periton Macrophages 66 Peritoneal LDH 48 03/07/25 03:49 WBC RBC Hgb Hct MCV MCH MCHC RDW Plt Count MPV Immature Gran % (Auto) Neut % (Auto) Lymph % (Auto) [place] % (Auto) Eos % (Auto) Baso % (Auto) Lymph # (Auto) [place] # (Auto) Eos # (Auto) Baso # (Auto) Abs Immat Gran (auto) Absolute Neuts (auto) Absolute Nucleated RBC Band Neutrophils % Nucleated RBC % Platelet Estimate Hypochromasia Ovalocytes [place] Cells Schistocytes PT 23.5 H INR 2.1 Sodium Potassium Chloride Carbon Dioxide Anion Gap BUN Creatinine Estim Creat Clear Calc Estimated GFR Glucose Calcium Total Bilirubin AST ALT Alkaline Phosphatase Total Protein Albumin Peritoneal Source Peritoneal Color Peritoneal Appearance Peritoneal RBC Periton Nuc Cells Periton Neutrophils Periton Lymphocytes Peritoneal Monocytes Periton Macrophages Peritoneal LDH
--- NOTE | 2025-03-07 14:32 | P.PNONC_ITS ---
Progress Note: A&P Assessment and Plan (1) Chronic anemia: Code(s): D64.9 - Anemia, unspecified Status: Chronic Plan This is a 79-year-old male with history of alcohol induced liver cirrhosis and hemochromatosis along with macrocytic anemia secondary to alcohol abuse came into the hospital with shortness of breath tiredness and fatigue abdominal distention and ascites. He developed acute renal insufficiency. Patient was a lso found to have bilateral kidney stone status post ureteral stent placement. He has he developed coagulopathy secondary to liver cirrhosis and infection with pneumonia and UTI. Anemia secondary to renal insufficiency and liver cirrhosis. Denies any bleeding. Due to his declining performance status and liver cirrhosis patient has opted for hospice care. He is looking into going to [facility] in [place] for inpatient hospice care as he is a 40% service connected and has primary care established at [facility]. No hematologic intervention needed including no PAMELA support with procrit. Hemoglobin is 8.2g/dL. Will continue to follow. Subjective Date/time seen: 03/07/25 14:32 Interval history: Patient seen at bedside. No over night events. States that he is contemplating inpatient hospice with [facility]. He is a 40% service connected . Review of Systems Review of Systems Patient reports fatigue, decreased appetite. There is no abdominal pain. Denies f/c, night sweats. No n/v/d. Otherwise 12 point review of system is negative. Exam Narrative: Lungs are clear to auscultation bilaterally Cardiovascular regular rate rhythm no murmurs Abdomen distended with ascites Extremities bilateral lower extremity edema Const: Other: Alert and orientedx3, ill appearing male in no acute distress SKIN: Jaundice noted CV: RRR, no m/g/r RESP: CTAB ABD: soft, NT, ND, BS+ EXT: no cyanosis Objective Data Vital Signs Vital Signs: Vital Signs - 24 hr 03/06/25 14:45 03/06/25 14:47 03/06/25 16:00 Temperature 36.5 C Pulse Rate 73 75 Respiratory Rate 20 Blood Pressure 92/48 L Pulse Oximetry 97 Oxygen Delivery Room Air 03/06/25 16:00 03/06/25 16:00 03/06/25 18:00 Temperature 36.4 C L Pulse Rate 65 62 68 Respiratory Rate 20 Blood Pressure 85/54 L Pulse Oximetry 96 Oxygen Delivery 03/06/25 19:05 03/06/25 20:00 03/06/25 20:00 Temperature 36.4 C Pulse Rate 73 66 Respiratory Rate 20 Blood Pressure 93/49 L Pulse Oximetry 100 Oxygen Delivery Room Air 03/06/25 22:00 03/06/25 22:15 03/07/25 00:00 Temperature 36.8 C Pulse Rate 81 69 Respiratory Rate 16 Blood Pressure 88/49 L Pulse Oximetry 97 97 Oxygen Delivery Autopap 03/07/25 00:00 03/07/25 00:00 03/07/25 02:00 Temperature Pulse Rate 73 70 Respiratory Rate Blood Pressure Pulse Oximetry Oxygen Delivery Room Air 03/07/25 04:00 03/07/25 04:00 03/07/25 04:00 Temperature 36.8 C Pulse Rate 70 86 Respiratory Rate 16 Blood Pressure 95/55 L Pulse Oximetry 99 Oxygen Delivery Room Air 03/07/25 06:00 03/07/25 08:00 03/07/25 08:00 Temperature 36.4 C Pulse Rate 73 95 Respiratory Rate 22 H Blood Pressure 109/52 L Pulse Oximetry 97 97 Oxygen Delivery Room Air 03/07/25 08:00 03/07/25 08:52 03/07/25 10:00 Temperature Pulse Rate 92 73 67 Respiratory Rate Blood Pressure Pulse Oximetry Oxygen Delivery 03/07/25 11:48 03/07/25 12:00 03/07/25 12:00 Temperature 36.6 C Pulse Rate 77 68 Respiratory Rate 22 H Blood Pressure 78/42 L Pulse Oximetry 97 97 Oxygen Delivery Room Air Intake/Output Intake/Output: Intake & Output 03/04/25 03/05/25 03/06/25 03/07/25 23:59 23:59 23:59 23:59 Intake Total 3179.9 1070 640 445 Output Total 0 200 4300 150 Balance 3179.9 870 -3660 295 Meds/Results Medications: Active Medications Generic Name Dose Route Start Last Admin Trade Name Freq PRN Reason Stop Dose Admin Acetaminophen 325 mg 02/27/25 16:47 Acetaminophen 325 Mg Tablet PO Q6H PRN Mild Pain (1-3) or Fever Hydrocodone Bitart/Acetaminophen 1 tab 03/03/25 16:51 03/06/25 04:22 Hydrocodone/Acetaminophen (*Crx) 5-325 Mg Tablet PO 1 tab Q6H PRN Administration Pain Rated 7-10 Benzonatate 100 mg 02/27/25 16:47 02/27/25 21:12 Benzonatate 100 Mg Capsule PO 100 mg TID PRN Administration Cough Enoxaparin Sodium 30 mg 03/05/25 09:00 03/07/25 08:52 Enoxaparin 30 Mg/0.3 Ml Syringe SUB-Q 30 mg DAILY PABLO Administration Folic Acid 1 mg 02/28/25 09:00 03/07/25 08:52 Folic Acid 1 Mg Tablet PO 1 mg QAM PABLO Administration Guaifenesin 600 mg 02/27/25 16:47 02/27/25 21:12 Guaifenesin 12 Hr 600 Mg Tabcr PO 600 mg Q12HR PRN Administration Congestion Albumin Human 100 mls @ 60 mls/hr 03/04/25 12:05 03/07/25 12:26 Albutein IVPB 60 mls/hr Q12H PABLO Administration Levothyroxine Sodium 75 mcg 02/28/25 06:30 03/03/25 05:50 Levothyroxine Sodium 75 Mcg Tablet PO 75 mcg DAILY@0630 [facility] Administration Magnesium Oxide 400 mg 02/28/25 09:00 03/07/25 08:52 Magnesium Oxide 400 Mg Tablet PO 400 mg BID PABLO Administration Metoprolol Succinate 50 mg 02/28/25 09:00 03/07/25 08:52 Metoprolol Succinate Ext Rel 50 Mg Tabcr PO 50 mg DAILY [facility] Administration Midodrine 10 mg 03/04/25 17:25 03/07/25 12:26 Midodrine Hcl 10 Mg Tablet PO 10 mg TID [facility] Administration Multivitamins Therapeutic 1 tablet 02/27/25 22:25 03/06/25 20:04 Multivitamins Therapeutic Tab (*Bkc) PO 1 tablet QHS PABLO Administration Oxybutynin Chloride 5 mg 03/03/25 15:09 03/03/25 15:23 Oxybutynin Chloride 5 Mg Tablet PO 5 mg BID PRN Administration spasm Tamsulosin HCl 0.4 mg 02/28/25 09:00 03/07/25 08:52 Tamsulosin Hcl 0.4 Mg Capsule PO 0.4 mg QAM [facility] Administration Vitamin D 5,000 units 02/28/25 09:00 03/07/25 08:52 Cholecalciferol 5,000 Units Tablet BY MOUTH 5,000 units DAILY PABLO Administration Radiology Results: ITS Impressions Chest X-Ray 02/27/25 13:59 IMPRESSION: 1. No significant interval change in bilateral small pleural effusions, right greater than left with opacities at the right lung base which could represent associated atelectasis and/or pneumonia. Abdomen/Pelvis CT 03/03/25 12:23 Impression: Majano catheter in satisfactory position within urinary bladder. Moderate to large right pleural effusion and small left pleural effusion with bibasilar atelectasis, right worse than left. Small bilateral nonobstructing renal stones. No hydronephrosis or ureteral stone. Bilateral ureteral stents. Possible mild cirrhotic change of liver. Moderate abdominopelvic ascites. Thyroid Ultrasound 03/04/25 11:46 IMPRESSION: Coarse heterogeneous echogenicity detected diffusely throughout the entirety of the thyroid gland, without increased vascularity to suggest thyroiditis. Benign subcentimeter cysts (TR 1) detected bilaterally for which no further follow-up is needed. In a patient with elevated TSH and elevated free T4, the suggestion of a possible pituitary gland disorder would be more common than inherent thyroid disease. Paracentesis Ultrasound 03/06/25 17:09 IMPRESSION: 1. Successful ultrasound-guided paracentesis yielding 4200 mL of yellowish fluid. Labs Labs: Laboratory Results - last 24 hr 03/02/25 03/06/25 03/07/25 13:28 13:55 03:43 WBC 6.1 RBC 2.32 L Hgb 8.2 L Hct 24.8 L MCV 106.9 H MCH 35.3 H MCHC 33.1 RDW 15.9 H Plt Count 120 L MPV 10.6 H Immature Gran % (Auto) 0.3 Neut % (Auto) 75.4 H Lymph % (Auto) 13.2 L Avery % (Auto) 7.2 Eos % (Auto) 2.9 Baso % (Auto) 1.0 Lymph # (Auto) 0.81 L Avery # (Auto) 0.4 Eos # (Auto) 0.2 Baso # (Auto) 0.1 Abs Immat Gran (auto) 0.02 Absolute Neuts (auto) 4.6 Absolute Nucleated RBC 0.000 Band Neutrophils % Not Reportable Nucleated RBC % 0.0 Platelet Estimate Slightly decreased Hypochromasia 1+ Ovalocytes 1+ Mariia Cells 1+ Schistocytes Rare PT INR Sodium 132 L Potassium 4.5 Chloride 100 Carbon Dioxide 22 Anion Gap 10 BUN 61 H Creatinine 5.19 H Estim Creat Clear Calc 12 Estimated GFR 11 L Glucose 118 H Calcium 8.1 L Total Bilirubin 2.3 H AST 29 ALT 14 Alkaline Phosphatase 178 H Total Protein 6.0 L Albumin 2.9 L Peritoneal Source Peritoneal fluid Peritoneal Color Yellow Peritoneal Appearance Hazy A Peritoneal RBC < 2000 Periton Nuc Cells 85 Periton Neutrophils 9 Periton Lymphocytes 12 Peritoneal Monocytes 13 Periton Macrophages 66 Peritoneal LDH 48 03/07/25 03:49 WBC RBC Hgb Hct MCV MCH MCHC RDW Plt Count MPV Immature Gran % (Auto) Neut % (Auto) Lymph % (Auto) Avery % (Auto) Eos % (Auto) Baso % (Auto) Lymph # (Auto) Avery # (Auto) Eos # (Auto) Baso # (Auto) Abs Immat Gran (auto) Absolute Neuts (auto) Absolute Nucleated RBC Band Neutrophils % Nucleated RBC % Platelet Estimate Hypochromasia Ovalocytes Mariia Cells Schistocytes PT 23.5 H INR 2.1 Sodium Potassium Chloride Carbon Dioxide Anion Gap BUN Creatinine Estim Creat Clear Calc Estimated GFR Glucose Calcium Total Bilirubin AST ALT Alkaline Phosphatase Total Protein Albumin Peritoneal Source Peritoneal Color Peritoneal Appearance Peritoneal RBC Periton Nuc Cells Periton Neutrophils Periton Lymphocytes Peritoneal Monocytes Periton Macrophages Peritoneal LDH
[2025-03-07] MEDS: MULTIVITAMINS THERAPEUTIC TAB (*BKC) 1 TABLET PO (20:24)
[2025-03-07 22:52] LABS: Cryoglobulin, QL Negative (Negative)
[2025-03-08] VITALS (15 sets, daily range): BP systolic 84–96; BP diastolic 44–59; PULSE 61–100; RESP 14–18; TEMP 36.5–37.2; O2SAT 97–100
[2025-03-08] MEDS: ALBUMIN HUMAN 25% 25 GM/100 ML 100 ML IVPB ×2 (00:07→13:19)
[2025-03-08] MEDS: HYDROcodone/acetaminophen (*CRX) 5-325 MG TABLET 1 TAB PO (04:27)
[2025-03-08 04:38] LABS: INR 2.1; Prothrombin Time 23.5 Seconds (11.1-14.7)
--- NOTE | 2025-03-08 08:27 | PCPTNOTE ---
PT has been refusing services. OT spoke with ordering physician regarding the situation. Orders discharged, with patient and physician aware they may reorder at any time should the patient be willing to participate.
--- NOTE | 2025-03-08 08:27 | PCOTNOTE ---
Attempted OT evaluation this AM. Patient continues to decline therapy services, reporting he does not want to get out of bed and that he is going on hospice. Spoke with ordering physician regarding discharging therapy orders at this time and physician in agreement.
[2025-03-08 09:03] LABS: Alanine Aminotransferase 13 U/L (6-50); Albumin Level 2.8 g/dL (3.5-5.1); Alkaline Phosphatase 164 U/L (38-126); Anion Gap 9 mmol/L (4-12); Aspartate Amino Transferase 34 U/L (17-59); Bilirubin,Total 2.5 mg/dL (0.2-1.3); Blood Urea Nitrogen 63 mg/dL (9-20); Calcium 8.3 mg/dL (8.4-10.2); Carbon Dioxide 23 mmol/L (22-30); Chloride 99 mmol/L (98-107); Estimated CRCL calculation 11 ml/min; Estimated Glomerular Filt Rate 10; Glucose 112 mg/dL (65-110); Potassium 4.7 mmol/L (3.4-5.0); Sodium 131 mmol/L (137-145)
[2025-03-08] MEDS: FOLIC ACID 1 MG TABLET PO (10:00)
[2025-03-08] MEDS: CHOLECALCIFEROL 5,000 UNITS TABLET 5000 UNITS BY MOUTH (10:00)
[2025-03-08] MEDS: MAGNESIUM OXIDE 400 MG TABLET PO ×2 (10:00→18:17)
[2025-03-08] MEDS: MIDODRINE HCL 10 MG TABLET PO ×3 (10:00→18:17)
[2025-03-08] MEDS: TAMSULOSIN HCL 0.4 MG CAPSULE PO (10:01)
[2025-03-08] MEDS: ENOXAPARIN 30 MG/0.3 ML SYRINGE SUB-Q (10:01)
--- NOTE | 2025-03-08 10:48 | P.PNNP_ITS ---
Progress Note: A&P Assessment and Plan (1) Acute kidney injury: Code(s): N17.9 - Acute kidney failure, unspecified Status: Acute Assessment and Plan: * continue to worsen/deteriorate... * noted anuria as well * trend of creatinine is as noted * had been running ~ 1.1 - 1.5mg/l since 2020 * averaging ~ 1.1 - 1.3mg/dl in 2022 - 2023 * creatinine up to 2.0mg/dl in November 2024 * hospitalized in early January 2025 for LISA with creatinine of 3.6mg/dl secondary to obstructive uropathy -- bilateral ureteric stones with bilateral hydronephrotic changes present and had bilateral ureteral stents placed with creatinine of 1.13mg/dl at discharge * noted creatinine of 1.41mg/dl on 02/03/25 (outpatient labs) * creatinine ~ 2.0mg/dl on discharge in early February 2025 (02/19/25) * admission creatinine 2.82mg/dl * evaluation on previous and this hospitalization noted: * 2+ protein and 3+ blood on UA (due to stents?) * urine eosinophils negative previously; rare on this admission * 1300mg of proteinuria * urine electrolytes prerenal * CT A/P without obstruction but evidence of volume overload * suspect fluctuating/worsening creatinine/renal function is a manifestation of his liver disease/physiology: * decreased effective circulating volume leading to chronic prerenal azotemia worsened by his need for diuretic therapy in an effort to maintain stability his volume status... * beginnings of or transition to hepatorenal syndrome is of concern - no response to midodrine and octreotide to date.... * follow trend of renal function and UOP (2) Stage 3b chronic kidney disease: Code(s): N18.32 - Chronic kidney disease, stage 3b Status: Chronic Assessment and Plan: * as apparent on last hospitalization * creatinine seems to stabilize around 2ish range * see #1 (3) Volume overload: Qualifiers: Hypervolemia type: unspecified Qualified Code(s): E87.70 - Fluid overload, unspecified Code(s): E87.70 - Fluid overload, unspecified Status: Acute Assessment and Plan: * noted anasarca on admission * due to LISA, CKD, CHF, liver disease or combo of all... * evaluation noted: * Echo noted - EF 65-70%, indeterminate diastolic function, mild-mod aortic insufficiency, and moderate pulmonary HTN * RUQ US showing fatty infiltration of the liver with a possible nodular contour and ascites * coagulopathy noted * hypoalbuminemia noted as well * suspect liver cirrhosis major component with regard to fluid status * attempted IV albumin chased by IV diuretics but hemodynamics will not tolerate * s/p large volume paracentesis on 03/02 * repeat paracentesis likely today (4) Pneumonia: Qualifiers: Pneumonia type: due to unspecified organism Laterality: unspecified laterality Lung location: unspecified part of lung Qualified Code(s): J18.9 - Pneumonia, unspecified organism Code(s): J18.9 - Pneumonia, unspecified organism Status: Suspected Assessment and Plan: * Chest x-ray showing small bilateral small pleural effusion right greater than left with opacities at the right lung base which could represent pneumonia * Abdomen/pelvis CT showed a increase mild ground-glass opacity in the lingula which could represent pneumonia * follow culture data - negative to date * on antibiotics (5) Cirrhosis: Qualifiers: Hepatic cirrhosis type: unspecified hepatic cirrhosis Ascites presence: with ascites Qualified Code(s): K74.60 - Unspecified cirrhosis of liver; R18.8 - Other ascites Code(s): K74.60 - Unspecified cirrhosis of liver Status: Acute Assessment and Plan: * noted by imaging studies to date * history of heavy alcohol use in the past * also on amiodarone for an extensive period of time * hepatitis panel negative * GI following as well (6) Ascites: Qualifiers: Ascites type: other type Qualified Code(s): R18.8 - Other ascites Code(s): R18.8 - Other ascites Status: Acute Assessment and Plan: * presumably secondary to liver cirrhosis * last paracentesis done on (02/16): * removal of 2650mL of fluid * s/p large volume paracentesis on 03/02 * gram stain noted * culture negative to date (7) Coagulopathy: Code(s): D68.9 - Coagulation defect, unspecified Status: Acute Assessment and Plan: * slow improvement if not stable * INR 7.6 on admission * Xarelto on hold * Vitamin K given * follow trend (8) Anemia: Qualifiers: Anemia type: unspecified type Qualified Code(s): D64.9 - Anemia, unspecified Code(s): D64.9 - Anemia, unspecified Status: Chronic Assessment and Plan: * chronic issue * probably due to liver disease, LISA, and CKD along with acute illness * follows with Hem/Onc * evaluation noted: * B12/folate normal by last hospitalization * anemia studies (from Nov 2024) with adequate iron stores * follow trend of H/H (9) Atrial fibrillation: Qualifiers: Atrial fibrillation type: paroxysmal Qualified Code(s): I48.0 - Paroxysmal atrial fibrillation Code(s): I48.91 - Unspecified atrial fibrillation Status: Chronic Assessment and Plan: * rate control strategy * holding xarelto given elevated INR * Echo noted (10) Kidney stones: Code(s): N20.0 - Calculus of kidney Status: Acute Assessment and Plan: * noted history of bilateral ureteric stones with bilateral hydronephrotic changes by CT scan (early January 2025) * s/p cystoscopy, bilateral retrogrades, bilateral ureteroscopy with stone extraction, and bilateral ureteral stent placement (on 01/20/25) by Urology. * imaging this admission showing resolution of the hydronephrosis * will need Urology follow-up regarding stent removal As the patient has finally decided that he does not want to pursue renal replacement therapy/dialysis as a treatment option and is interested in moving forward with comfort care/hospice on discharge, I am not sure I have anything else to offer at this time. Will continue to follow from a distance. L Subjective Date/time seen: 03/08/25 10:48 Interval history: Follow-up for acute kidney injury/acute renal failure on chronic kidney disease. Renal function/creatinine continues to deteriorate with noted oliguria/anuria; reports symptoms of nausea that come and go despite the fact he is not eating all that much; confirms with me at this time that he does not want to pursue renal replacement therapy/dialysis as a treatment option and moving forward with hospice/comfort care measures on discharge once this has been finalized; otherwise, at the time of my visit, he states he feels the same. Exam 2 Narrative: General: elderly and chronically ill-appearing male in NAD Heart: IRRR, normal S1 and S2; no rub Lungs: clear anteriorly; decreased at bases Abdomen: soft, nontender, mild distension with + fluid wave, positive bowel sounds Extremities: no cyanosis or clubbing; 2 - 3+ edema Skin: no rash or nodules Objective Data Vital Signs Vital Signs: Vital Signs Temp Pulse Resp BP Pulse Ox O2 Del Method 03/08/25 10:00 77 03/08/25 08:00 72 03/08/25 08:00 98.4 F 100 14 87/44 L 99 03/08/25 06:00 63 03/08/25 04:00 67 03/08/25 04:00 98.2 F 69 16 96/59 L 97 03/08/25 04:00 Room Air 03/08/25 02:00 61 03/08/25 00:14 90/57 L 03/08/25 00:00 68 03/08/25 00:00 Room Air 03/07/25 23:31 97.9 F 66 18 78/35 L 100 03/07/25 20:00 107 H 03/07/25 20:00 Room Air 03/07/25 19:56 97.6 F 88 18 94/64 L 98 03/07/25 18:00 59 L 03/07/25 16:00 70 03/07/25 16:00 97.6 F 70 20 85/59 L 98 03/07/25 16:00 97 Room Air Intake/Output Intake/Output: Intake & Output 03/05/25 03/06/25 03/07/25 03/08/25 23:59 23:59 23:59 23:59 Intake Total 0401 490 5605 1050 Output Total 200 4300 250 Balance 870 -3660 815 1050 Meds/Results Medications: Active Medications Generic Name Dose Route Start Last Admin Trade Name Johnq PRN Reason Stop Dose Admin Acetaminophen 325 mg 02/27/25 16:47 Acetaminophen 325 Mg Tablet PO Q6H PRN Mild Pain (1-3) or Fever Hydrocodone Bitart/Acetaminophen 1 tab 03/03/25 16:51 03/08/25 04:27 Hydrocodone/Acetaminophen (*Crx) 5-325 Mg Tablet PO 1 tab Q6H PRN Administration Pain Rated 7-10 Benzonatate 100 mg 02/27/25 16:47 02/27/25 21:12 Benzonatate 100 Mg Capsule PO 100 mg TID PRN Administration Cough Enoxaparin Sodium 30 mg 03/05/25 09:00 03/08/25 10:01 Enoxaparin 30 Mg/0.3 Ml Syringe SUB-Q 30 mg DAILY PABLO Administration Folic Acid 1 mg 02/28/25 09:00 03/08/25 10:00 Folic Acid 1 Mg Tablet PO 1 mg QAM [facility] Administration Guaifenesin 600 mg 02/27/25 16:47 02/27/25 21:12 Guaifenesin 12 Hr 600 Mg Tabcr PO 600 mg Q12HR PRN Administration Congestion Albumin Human 100 mls @ 60 mls/hr 03/04/25 12:05 03/08/25 13:19 Albutein IVPB 60 mls/hr Q12H PABLO Administration Levothyroxine Sodium 75 mcg 02/28/25 06:30 03/03/25 05:50 Levothyroxine Sodium 75 Mcg Tablet PO 75 mcg DAILY@0630 [facility] Administration Magnesium Oxide 400 mg 02/28/25 09:00 03/08/25 10:00 Magnesium Oxide 400 Mg Tablet PO 400 mg BID PABLO Administration Metoprolol Succinate 50 mg 02/28/25 09:00 03/08/25 10:01 Metoprolol Succinate Ext Rel 50 Mg Tabcr PO Not Given DAILY [facility] Midodrine 10 mg 03/04/25 17:25 03/08/25 13:19 Midodrine Hcl 10 Mg Tablet PO 10 mg TID [facility] Administration Multivitamins Therapeutic 1 tablet 02/27/25 22:25 03/07/25 20:24 Multivitamins Therapeutic Tab (*Bkc) PO 1 tablet QHS [facility] Administration Oxybutynin Chloride 5 mg 03/03/25 15:09 03/03/25 15:23 Oxybutynin Chloride 5 Mg Tablet PO 5 mg BID PRN Administration spasm Tamsulosin HCl 0.4 mg 02/28/25 09:00 03/08/25 10:01 Tamsulosin Hcl 0.4 Mg Capsule PO 0.4 mg QAM [facility] Administration Trazodone HCl 25 mg 03/08/25 21:00 Trazodone Hcl 25 Mg Tablet PO HS [facility] Vitamin D 5,000 units 02/28/25 09:00 03/08/25 10:00 Cholecalciferol 5,000 Units Tablet BY MOUTH 5,000 units DAILY PABLO Administration Radiology Results: ITS Impressions Chest X-Ray 02/27/25 13:59 IMPRESSION: 1. No significant interval change in bilateral small pleural effusions, right greater than left with opacities at the right lung base which could represent associated atelectasis and/or pneumonia. Abdomen/Pelvis CT 03/03/25 12:23 Impression: Majano catheter in satisfactory position within urinary bladder. Moderate to large right pleural effusion and small left pleural effusion with bibasilar atelectasis, right worse than left. Small bilateral nonobstructing renal stones. No hydronephrosis or ureteral stone. Bilateral ureteral stents. Possible mild cirrhotic change of liver. Moderate abdominopelvic ascites. Thyroid Ultrasound 03/04/25 11:46 IMPRESSION: Coarse heterogeneous echogenicity detected diffusely throughout the entirety of the thyroid gland, without increased vascularity to suggest thyroiditis. Benign subcentimeter cysts (TR 1) detected bilaterally for which no further follow-up is needed. In a patient with elevated TSH and elevated free T4, the suggestion of a possible pituitary gland disorder would be more common than inherent thyroid disease. Paracentesis Ultrasound 03/06/25 17:09 IMPRESSION: 1. Successful ultrasound-guided paracentesis yielding 4200 mL of yellowish fluid. Labs Labs: Laboratory Tests 03/07/25 03:43 03/08/25 03:44 PT 23.5 H INR 2.1 Calcium 8.3 L Total Bilirubin 2.5 H AST 34 ALT 13 Alkaline Phosphatase 164 H Total Protein 5.0 L Albumin 2.8 L Microbiology 03/02/25 13:28 Ascites Fluid Anaerobic Culture - Preliminary 03/02/25 13:28 Ascites Fluid Aerobic Culture - Final 03/02/25 13:28 Abdominal Fluid Anaerobic Culture - Preliminary 03/02/25 13:28 Abdominal Fluid Aerobic Culture - Final
--- NOTE | 2025-03-08 13:10 | P.PNIM_ITS ---
Progress Note: A&P Assessment and Plan (1) Volume overload: Qualifiers: Hypervolemia type: unspecified Qualified Code(s): E87.70 - Fluid overload, unspecified Code(s): E87.70 - Fluid overload, unspecified Status: Acute Assessment and Plan: * Chest x-ray showing bilateral small pleural effusions right greater than left with opacities in the right lung base which could represent pneumonia * Abdomen/pelvis CT shown anasarca with very small left and small to moderate- sized right pleural effusion, moderate amount of ascites and prominent body wall and less severe mesenteric and retroperitoneal edema, increased mild ground-glass opacity in the lingula which could represent pneumonia, a few tiny nonobstructive renal stones without hydronephrosis or obstruction, infrarenal IVC filter in place * ECHO from 02/14 EF 65-70% * Continue holding Bumex * Patient is awaiting hospice Nephrology following (2) Ascites: Qualifiers: Ascites type: other type Qualified Code(s): R18.8 - Other ascites Code(s): R18.8 - Other ascites Status: Acute Assessment and Plan: Peritoneal fluid culture negative continue Cefepime , Discontinued Vanc f/u cultures (3) Cirrhosis: Qualifiers: Hepatic cirrhosis type: unspecified hepatic cirrhosis Ascites presence: with ascites Qualified Code(s): K74.60 - Unspecified cirrhosis of liver; R18.8 - Other ascites Code(s): K74.60 - Unspecified cirrhosis of liver Status: Acute Assessment and Plan: * Total bili initially 2.8 now up to 3.1 * Alkaline phosphate 278> 221 * Ammonia 42 on admission, now down to less than 9 * UA showed 1+ urine bilirubin * GI following and recommending Midodrine and Octreotide infusion for hepatorenal syndrome * Continue Albumin per GI recommendation * Unable to get a true MELD score due to supratherapeutic INR * Underwent paracentesis and removed 5 L * Pending fluid analysis, f/u cultures (4) Supratherapeutic INR: Code(s): R79.1 - Abnormal coagulation profile Status: Acute Assessment and Plan: * Initial INR 7.6 now down to 2.2 * Underwent thoracentesis and removed 5 L * Xarelto stopped and he will need therapeutic Lovenox per GI recommendation as the only option for anticoagulation considering his liver failure. * s/p vitamin K today and repeat INR * Continue to trend (5) Acute kidney injury: Code(s): N17.9 - Acute kidney failure, unspecified Status: Acute Assessment and Plan: * ?Hepatorenal syndrome * Cr 5.19 from 2.82 * Baseline creatinine appears to be 1.13-1.17, EGFR 60 to greater than 60 * Continue Octreotide, Midodrine and Albumin * Patient may need Dialysis * Nephrology following (6) Pneumonia: Qualifiers: Pneumonia type: due to unspecified organism Laterality: unspecified laterality Lung location: unspecified part of lung Qualified Code(s): J18.9 - Pneumonia, unspecified organism Code(s): J18.9 - Pneumonia, unspecified organism Status: Suspected Assessment and Plan: * Chest x-ray showing small bilateral small pleural effusion right greater than left with opacities at the right lung base which could represent pneumonia * Abdomen/pelvis CT showed a increase mild ground-glass opacity in the lingula which could represent pneumonia * On Cefepime * s/p Vanc as MRSA negative, completed Azithromycin ' * Continue Cefepime (7) Urinary tract infection: Qualifiers: Hematuria presence: without hematuria Urinary tract infection type: acute cystitis Qualified Code(s): N30.00 - Acute cystitis without hematuria Code(s): N39.0 - Urinary tract infection, site not specified Status: Acute Assessment and Plan: * UA shown brown urine color, turbid appearance, 1+ protein, 1+ urine blood, 1+ urine bilirubin, 2+ leukocyte, greater than 100 urine RBC, 21-50 urine WBC, 3- 5 urine casts, rare urine eosinophils. * Urine culture was obtained and pending * Continue cefepime (8) Chronic anemia: Code(s): D64.9 - Anemia, unspecified Status: Chronic Assessment and Plan: Likely secondary to cirrhosis of the liver and chronic kidney disease, chronic * Hemoglobin 7.7, MCV 102.4 * Anemia workup in the past showed normal iron, ferritin, vitamin B12, folate * TSH and T4 elevated * B12/folate elevated, isat 67 * monitor H and H (9) Hypertension: Qualifiers: Hypertension type: primary hypertension Qualified Code(s): I10 - Essential (primary) hypertension Code(s): I10 - Essential (primary) hypertension Status: Chronic Assessment and Plan: * Blood pressure ranging 104/65 to 110/70 * Patient is not currently on any home medications for hypertension * Continue to trend (10) CHEO (obstructive sleep apnea): Code(s): G47.33 - Obstructive sleep apnea (adult) (pediatric) Status: Chronic Assessment and Plan: * Continue CPAP (11) Atrial fibrillation: Qualifiers: Atrial fibrillation type: paroxysmal Qualified Code(s): I48.0 - Paroxysmal atrial fibrillation Code(s): I48.91 - Unspecified atrial fibrillation Status: Chronic Assessment and Plan: * Patient initially in AFib RVR on arrival to the ED * EKG showing AFib with a rate of 87, QTC 524, right bundle branch block, left posterior fascicular block * Xarelto stopped--Will need therapeutic Lovenox when appropriate as this is the only anticoagulation recommended with liver failure. * Holding Metoprolol due to low blood pressure * Continue cardiac monitoring (12) Hypothyroidism: Code(s): E03.9 - Hypothyroidism, unspecified Status: Acute Assessment and Plan: * Continue Synthroid * TSH adn T4 elevated * hold levothyroxine * monitor thyroid studies * US thyroid unremarkable * MRI brain once patient is stable Plan Acute urinary retention Urology consulted and rowe was inserted but patient complained of pain and it was removed passing urine and urology following DVT prophylaxis on Sq Lovenox Awaiting hospice placement Subjective Date/time seen: 03/08/25 13:10 Interval history: Comfortable at bedside Awaiting hospice placement Review of Systems Review of Systems: All systems reviewed & are unremarkable except as noted in HPI and below Exam Narrative: General: In no acute distress, well nourished Head: atraumatic, no encephalopathy Eyes: PERRLA, sclera clear ENT: moist mucous membranes, nasal passages clear Neck: supple, no JVD, no adenopathy, trachea midline Cardiac: Normal S1 and S2. No murmur, gallops or friction rubs, peripheral pulses intact. Respiratory: Bilateral crackles in bases, no adventitious lung sounds, currently on room air Gastrointestinal: firm, taunt, non-tender, normoactive bowel sounds. Anasarca present : voiding without difficulty. Extremities: moves all extremities well, 2+ pitting edema BLE Skin: clean, dry, intact. No wounds or lesions. Neuro: Alert and oriented x4, cranial nerves intact, no neuro deficits. Psych: normal mood, normal affect, interactive Const: General: comfortable and no acute distress Other: , male, nontoxic appearance, chronically ill-appearing HENMT: Face/Nose/Sinus: Normal nares present Mouth: Yes moist mucous membranes Eyes: General: appearance normal, both eyes and all related structures Sclera: sclerae normal Pupils: Equal, round and reactive pupils present EOM: EOMs intact bilaterally Resp: Effort & Inspection: normal respiratory effort Other: Bibasilar rales. Cardio: Rate: regular rate Rhythm: regular rhythm Other: S1-S2 present without murmur, rub, ectopy GI: Other: rounded abdomen, slight fluid wave with palpation. No tenderness with palpation. Normoactive bowel sounds in all quadrants. : Other: External catheter in place, T colored output. Neuro: Cranial nerves: Yes Equal, round and reactive pupils present Speech: normal speech Motor exam (neuro): 5/5 motor strength present throughout Sensory Exam: normal sensation Other: A&O x4 Extrem: Other: 3+ pitting edema starting at upper thigh s to ankles bilaterally, R>L. Psych: Mental Status: mental status grossly normal Affect: normal affect Other: Good insight and judgment, pleasant. Objective Data Vital Signs Vital Signs: Vital Signs - 24 hr 03/07/25 14:00 03/07/25 16:00 03/07/25 16:00 Temperature 97.6 F Pulse Rate 64 70 Respiratory Rate 20 Blood Pressure 85/59 L Pulse Oximetry 97 98 Oxygen Delivery Room Air 03/07/25 16:00 03/07/25 18:00 03/07/25 19:56 Temperature 97.6 F Pulse Rate 70 59 L 88 Respiratory Rate 18 Blood Pressure 94/64 L Pulse Oximetry 98 Oxygen Delivery 03/07/25 20:00 03/07/25 20:00 03/07/25 23:31 Temperature 97.9 F Pulse Rate 107 H 66 Respiratory Rate 18 Blood Pressure 78/35 L Pulse Oximetry 100 Oxygen Delivery Room Air 03/08/25 00:00 03/08/25 00:00 03/08/25 00:14 Temperature Pulse Rate 68 Respiratory Rate Blood Pressure 90/57 L Pulse Oximetry Oxygen Delivery Room Air 03/08/25 02:00 03/08/25 04:00 03/08/25 04:00 Temperature 98.2 F Pulse Rate 61 69 Respiratory Rate 16 Blood Pressure 96/59 L Pulse Oximetry 97 Oxygen Delivery Room Air 04/20/25 04:00 03/08/25 06:00 03/08/25 08:00 Temperature 98.4 F Pulse Rate 67 63 100 Respiratory Rate 14 Blood Pressure 87/44 L Pulse Oximetry 99 Oxygen Delivery 03/08/25 08:00 03/08/25 10:00 03/08/25 11:25 Temperature 98.6 F Pulse Rate 72 77 83 Respiratory Rate 14 Blood Pressure 84/54 L Pulse Oximetry 100 Oxygen Delivery Intake/Output Intake/Output: Intake & Output 03/05/25 03/06/25 03/07/25 03/08/25 23:59 23:59 23:59 23:59 Intake Total 7099 116 2786 710 Output Total 200 4300 250 Balance 870 -3660 815 710 Meds/Results Medications: Active Medications Generic Name Dose Route Start Last Admin Trade Name Freq PRN Reason Stop Dose Admin Acetaminophen 325 mg 02/27/25 16:47 Acetaminophen 325 Mg Tablet PO Q6H PRN Mild Pain (1-3) or Fever Hydrocodone Bitart/Acetaminophen 1 tab 03/03/25 16:51 03/08/25 04:27 Hydrocodone/Acetaminophen (*Crx) 5-325 Mg Tablet PO 1 tab Q6H PRN Administration Pain Rated 7-10 Benzonatate 100 mg 02/27/25 16:47 02/27/25 21:12 Benzonatate 100 Mg Capsule PO 100 mg TID PRN Administration Cough Enoxaparin Sodium 30 mg 03/05/25 09:00 03/08/25 10:01 Enoxaparin 30 Mg/0.3 Ml Syringe SUB-Q 30 mg DAILY PABLO Administration Folic Acid 1 mg 02/28/25 09:00 03/08/25 10:00 Folic Acid 1 Mg Tablet PO 1 mg QAM [facility]LO Administration Guaifenesin 600 mg 02/27/25 16:47 02/27/25 21:12 Guaifenesin 12 Hr 600 Mg Tabcr PO 600 mg Q12HR PRN Administration Congestion Albumin Human 100 mls @ 60 mls/hr 03/04/25 12:05 03/08/25 00:07 Albutein IVPB 60 mls/hr Q12H [facility]LO Administration Levothyroxine Sodium 75 mcg 02/28/25 06:30 03/03/25 05:50 Levothyroxine Sodium 75 Mcg Tablet PO 75 mcg DAILY@0630 [facility] Administration Magnesium Oxide 400 mg 02/28/25 09:00 03/08/25 10:00 Magnesium Oxide 400 Mg Tablet PO 400 mg BID PABLO Administration Metoprolol Succinate 50 mg 02/28/25 09:00 03/08/25 10:01 Metoprolol Succinate Ext Rel 50 Mg Tabcr PO Not Given DAILY [facility] Midodrine 10 mg 03/04/25 17:25 03/08/25 10:00 Midodrine Hcl 10 Mg Tablet PO 10 mg TID PABLO Administration Multivitamins Therapeutic 1 tablet 02/27/25 22:25 03/07/25 20:24 Multivitamins Therapeutic Tab (*Bkc) PO 1 tablet QHS [facility] Administration Oxybutynin Chloride 5 mg 03/03/25 15:09 03/03/25 15:23 Oxybutynin Chloride 5 Mg Tablet PO 5 mg BID PRN Administration spasm Tamsulosin HCl 0.4 mg 02/28/25 09:00 03/08/25 10:01 Tamsulosin Hcl 0.4 Mg Capsule PO 0.4 mg QAM [facility] Administration Trazodone HCl 25 mg 03/08/25 21:00 Trazodone Hcl 25 Mg Tablet PO HS [facility] Vitamin D 5,000 units 02/28/25 09:00 03/08/25 10:00 Cholecalciferol 5,000 Units Tablet BY MOUTH 5,000 units DAILY [facility]LO Administration Radiology Results: ITS Impressions Chest X-Ray 02/27/25 13:59 IMPRESSION: 1. No significant interval change in bilateral small pleural effusions, right greater than left with opacities at the right lung base which could represent associated atelectasis and/or pneumonia. Abdomen/Pelvis CT 03/03/25 12:23 Impression: Rowe catheter in satisfactory position within urinary bladder. Moderate to large right pleural effusion and small left pleural effusion with bibasilar atelectasis, right worse than left. Small bilateral nonobstructing renal stones. No hydronephrosis or ureteral stone. Bilateral ureteral stents. Possible mild cirrhotic change of liver. Moderate abdominopelvic ascites. Thyroid Ultrasound 03/04/25 11:46 IMPRESSION: Coarse heterogeneous echogenicity detected diffusely throughout the entirety of the thyroid gland, without increased vascularity to suggest thyroiditis. Benign subcentimeter cysts (TR 1) detected bilaterally for which no further follow-up is needed. In a patient with elevated TSH and elevated free T4, the suggestion of a possible pituitary gland disorder would be more common than inherent thyroid disease. Paracentesis Ultrasound 03/06/25 17:09 IMPRESSION: 1. Successful ultrasound-guided paracentesis yielding 4200 mL of yellowish fluid. Labs Labs: Laboratory Results - last 24 hr 02/28/25 03/08/25 05:21 03:44 PT 23.5 H INR 2.1 Sodium 131 L Potassium 4.7 Chloride 99 Carbon Dioxide 23 Anion Gap 9 BUN 63 H Creatinine 5.67 H Estim Creat Clear Calc 11 Estimated GFR 10 L Glucose 112 H Calcium 8.3 L Total Bilirubin 2.5 H AST 34 ALT 13 Alkaline Phosphatase 164 H Total Protein 5.0 L Albumin 2.8 L Cryoglobulin Qualit Negative Quality VTE Prophylaxis VTE prophylaxis: mechanical ordered
--- NOTE | 2025-03-08 14:12 | WPDGIPROGNO ---
Progress Note: A&P Assessment and Plan (1) Spontaneous bacterial peritonitis: Code(s): K65.2 - Spontaneous bacterial peritonitis Status: Acute Assessment and Plan: on treatment, received albumi (2) Cirrhosis: Qualifiers: Hepatic cirrhosis type: unspecified hepatic cirrhosis Ascites presence: with ascites Qualified Code(s): K74.60 - Unspecified cirrhosis of liver; R18.8 - Other ascites Code(s): K74.60 - Unspecified cirrhosis of liver Status: Acute Assessment and Plan: alcohol related high MELD with decompensated cirrhosis and worsening renal failure prognosis is guarded (3) Acute kidney injury: Code(s): N17.9 - Acute kidney failure, unspecified Status: Acute Assessment and Plan: probably HRS, treated with midodrine, iv albumin, also treatment of SBP patient decided to pursue hospice and comfort will follow only as needed (4) Coagulopathy: Code(s): D68.9 - Coagulation defect, unspecified Status: Acute Assessment and Plan: driven by cirrhosis blood thinner was discontinued Subjective Date/time seen: 03/08/25 14:12 Interval history: today nausea which is new, no abdominal pain Review of Systems Review of Systems: All systems reviewed & are unremarkable except as noted in HPI and below Exam Const: Other: chronically ill appearing HENMT: Face/Nose/Sinus: Normal nares present Eyes: General: appearance normal, both eyes and all related structures Neck: Neck: supple Resp: Effort & Inspection: normal respiratory effort Cardio: Rate: regular rate GI: Inspection: distended GI Palp: Yes Soft to palpation and No Tenderness to palpation present (GI) Other: less distended, less ascites after paracentesis Skin: General skin exam: normal color Neuro: Speech: normal speech Extrem: General: pedal edema Psych: Mental Status: mental status grossly normal Objective Data Vital Signs Vital Signs: Vital Signs - 24 hr 03/07/25 16:00 03/07/25 16:00 03/07/25 16:00 Temperature 97.6 F Pulse Rate 70 70 Respiratory Rate 20 Blood Pressure 85/59 L Pulse Oximetry 97 98 Oxygen Delivery Room Air 03/07/25 18:00 03/07/25 19:56 03/07/25 20:00 Temperature 97.6 F Pulse Rate 59 L 88 Respiratory Rate 18 Blood Pressure 94/64 L Pulse Oximetry 98 Oxygen Delivery Room Air 03/07/25 20:00 03/07/25 23:31 03/08/25 00:00 Temperature 97.9 F Pulse Rate 107 H 66 Respiratory Rate 18 Blood Pressure 78/35 L Pulse Oximetry 100 Oxygen Delivery Room Air 03/08/25 00:00 03/08/25 00:14 03/08/25 02:00 Temperature Pulse Rate 68 61 Respiratory Rate Blood Pressure 90/57 L Pulse Oximetry Oxygen Delivery 03/08/25 04:00 03/08/25 04:00 03/08/25 04:00 Temperature 98.2 F Pulse Rate 69 67 Respiratory Rate 16 Blood Pressure 96/59 L Pulse Oximetry 97 Oxygen Delivery Room Air 03/08/25 06:00 03/08/25 08:00 03/08/25 08:00 Temperature 98.4 F Pulse Rate 63 100 72 Respiratory Rate 14 Blood Pressure 87/44 L Pulse Oximetry 99 Oxygen Delivery 03/08/25 10:00 03/08/25 11:25 03/08/25 12:00 Temperature 98.6 F Pulse Rate 77 83 69 Respiratory Rate 14 Blood Pressure 84/54 L Pulse Oximetry 100 Oxygen Delivery Intake/Output Intake/Output: Intake & Output 03/05/25 03/06/25 03/07/25 03/08/25 23:59 23:59 23:59 23:59 Intake Total 9271 060 2626 1050 Output Total 200 4300 250 Balance 870 -3660 815 1050 Meds/Results Medications: Active Medications Generic Name Dose Route Start Last Admin Trade Name Freq PRN Reason Stop Dose Admin Acetaminophen 325 mg 02/27/25 16:47 Acetaminophen 325 Mg Tablet PO Q6H PRN Mild Pain (1-3) or Fever Hydrocodone Bitart/Acetaminophen 1 tab 03/03/25 16:51 03/08/25 04:27 Hydrocodone/Acetaminophen (*Crx) 5-325 Mg Tablet PO 1 tab Q6H PRN Administration Pain Rated 7-10 Benzonatate 100 mg 02/27/25 16:47 02/27/25 21:12 Benzonatate 100 Mg Capsule PO 100 mg TID PRN Administration Cough Enoxaparin Sodium 30 mg 03/05/25 09:00 03/08/25 10:01 Enoxaparin 30 Mg/0.3 Ml Syringe SUB-Q 30 mg DAILY PABLO Administration Folic Acid 1 mg 02/28/25 09:00 03/08/25 10:00 Folic Acid 1 Mg Tablet PO 1 mg QAM [facility] Administration Guaifenesin 600 mg 02/27/25 16:47 02/27/25 21:12 Guaifenesin 12 Hr 600 Mg Tabcr PO 600 mg Q12HR PRN Administration Congestion Albumin Human 100 mls @ 60 mls/hr 03/04/25 12:05 03/08/25 13:19 Albutein IVPB 60 mls/hr Q12H [facility] Administration Levothyroxine Sodium 75 mcg 02/28/25 06:30 03/03/25 05:50 Levothyroxine Sodium 75 Mcg Tablet PO 75 mcg DAILY@0630 [facility] Administration Magnesium Oxide 400 mg 02/28/25 09:00 03/08/25 10:00 Magnesium Oxide 400 Mg Tablet PO 400 mg BID PABLO Administration Metoprolol Succinate 50 mg 02/28/25 09:00 03/08/25 10:01 Metoprolol Succinate Ext Rel 50 Mg Tabcr PO Not Given DAILY [facility]ABLO Midodrine 10 mg 03/04/25 17:25 03/08/25 13:19 Midodrine Hcl 10 Mg Tablet PO 10 mg TID [facility] Administration Multivitamins Therapeutic 1 tablet 02/27/25 22:25 03/07/25 20:24 Multivitamins Therapeutic Tab (*Bkc) PO 1 tablet QHS [facility] Administration Oxybutynin Chloride 5 mg 03/03/25 15:09 03/03/25 15:23 Oxybutynin Chloride 5 Mg Tablet PO 5 mg BID PRN Administration spasm Tamsulosin HCl 0.4 mg 02/28/25 09:00 03/08/25 10:01 Tamsulosin Hcl 0.4 Mg Capsule PO 0.4 mg QAM [facility] Administration Trazodone HCl 25 mg 03/08/25 21:00 Trazodone Hcl 25 Mg Tablet PO HS [facility] Vitamin D 5,000 units 02/28/25 09:00 03/08/25 10:00 Cholecalciferol 5,000 Units Tablet BY MOUTH 5,000 units DAILY [facility] Administration Radiology Results: ITS Impressions Chest X-Ray 02/27/25 13:59 IMPRESSION: 1. No significant interval change in bilateral small pleural effusions, right greater than left with opacities at the right lung base which could represent associated atelectasis and/or pneumonia. Abdomen/Pelvis CT 03/03/25 12:23 Impression: Maj[place] catheter in satisfactory position within urinary bladder. Moderate to large right pleural effusion and small left pleural effusion with bibasilar atelectasis, right worse than left. Small bilateral nonobstructing renal stones. No hydronephrosis or ureteral stone. Bilateral ureteral stents. Possible mild cirrhotic change of liver. Moderate abdominopelvic ascites. Thyroid Ultrasound 03/04/25 11:46 IMPRESSION: Coarse heterogeneous echogenicity detected diffusely throughout the entirety of the thyroid gland, without increased vascularity to suggest thyroiditis. Benign subcentimeter cysts (TR 1) detected bilaterally for which no further follow-up is needed. In a patient with elevated TSH and elevated free T4, the suggestion of a possible pituitary gland disorder would be more common than inherent thyroid disease. Paracentesis Ultrasound 03/06/25 17:09 IMPRESSION: 1. Successful ultrasound-guided paracentesis yielding 4200 mL of yellowish fluid. Labs Labs: Laboratory Results - last 24 hr 02/28/25 03/08/25 05:21 03:44 PT 23.5 H INR 2.1 Sodium 131 L Potassium 4.7 Chloride 99 Carbon Dioxide 23 Anion Gap 9 BUN 63 H Creatinine 5.67 H Estim Creat Clear Calc 11 Estimated GFR 10 L Glucose 112 H Calcium 8.3 L Total Bilirubin 2.5 H AST 34 ALT 13 Alkaline Phosphatase 164 H Total Protein 5.0 L Albumin 2.8 L Cryoglobulin Qualit Negative
--- NOTE | 2025-03-08 14:28 | WPDONCPN ---
Progress Note: A&P Assessment and Plan (1) Chronic anemia: Code(s): D64.9 - Anemia, unspecified Status: Chronic Plan This is a 79-year-old male with history of alcohol induced liver cirrhosis and hemochromatosis along with macrocytic anemia secondary to alcohol abuse came into the hospital with shortness of breath tiredness and fatigue abdominal distention and ascites. He developed acute renal insufficiency. Patient was also found to have bilateral kidney stone status post ureteral stent placement. He has he developed coagulopathy secondary to liver cirrhosis and infection with pneumonia and UTI. Anemia secondary to renal insufficiency and liver cirrhosis. Denies any bleeding. Due to his declining performance status and liver cirrhosis patient has opted for hospice care. He is looking into going to [facility] in [place] for inpatient hospice care as he is a 40% service connected and has primary care established at [facility]. No hematologic intervention needed including no PAMELA support with procrit. Hemoglobin was 8.2g/dL 03/07/25. Will continue to follow. Subjective Date/time seen: 03/08/25 14:28 Interval history: Reports intermittent nausea but no vomiting. Review of Systems Review of Systems Patient reports fatigue, decreased appetite. There is no abdominal pain. Denies f/c, night sweats. Reports intermittent nausea today but no vomiting. No diarrhea. Otherwise 12 point review of system is negative. Exam Const: Other: Alert and orientedx3, ill appearing male in no acute distress SKIN: Jaundice noted CV: RRR, no m/g/r RESP: CTAB ABD: soft, NT, ND, BS+ EXT: no cyanosis Objective Data Vital Signs Vital Signs: Vital Signs - 24 hr 03/07/25 16:00 03/07/25 16:00 03/07/25 16:00 Temperature 36.4 C Pulse Rate 70 70 Respiratory Rate 20 Blood Pressure 85/59 L Pulse Oximetry 97 98 Oxygen Delivery Room Air 03/07/25 18:00 03/07/25 19:56 03/07/25 20:00 Temperature 36.4 C Pulse Rate 59 L 88 Respiratory Rate 18 Blood Pressure 94/64 L Pulse Oximetry 98 Oxygen Delivery Room Air 03/07/25 20:00 03/07/25 23:31 03/08/25 00:00 Temperature 36.6 C Pulse Rate 107 H 66 Respiratory Rate 18 Blood Pressure 78/35 L Pulse Oximetry 100 Oxygen Delivery Room Air 03/08/25 00:00 03/08/25 00:14 03/08/25 02:00 Temperature Pulse Rate 68 61 Respiratory Rate Blood Pressure 90/57 L Pulse Oximetry Oxygen Delivery 03/08/25 04:00 03/08/25 04:00 03/08/25 04:00 Temperature 36.8 C Pulse Rate 69 67 Respiratory Rate 16 Blood Pressure 96/59 L Pulse Oximetry 97 Oxygen Delivery Room Air 03/08/25 06:00 03/08/25 08:00 03/08/25 08:00 Temperature 36.9 C Pulse Rate 63 100 72 Respiratory Rate 14 Blood Pressure 87/44 L Pulse Oximetry 99 Oxygen Delivery 03/08/25 10:00 03/08/25 11:25 03/08/25 12:00 Temperature 37.0 C Pulse Rate 77 83 69 Respiratory Rate 14 Blood Pressure 84/54 L Pulse Oximetry 100 Oxygen Delivery Intake/Output Intake/Output: Intake & Output 03/05/25 03/06/25 03/07/25 03/08/25 23:59 23:59 23:59 23:59 Intake Total 8064 726 0321 1050 Output Total 200 4300 250 Balance 870 -3660 815 1050 Meds/Results Medications: Active Medications Generic Name Dose Route Start Last Admin Trade Name Freq PRN Reason Stop Dose Admin Acetaminophen 325 mg 02/27/25 16:47 Acetaminophen 325 Mg Tablet PO Q6H PRN Mild Pain (1-3) or Fever Hydrocodone Bitart/Acetaminophen 1 tab 03/03/25 16:51 03/08/25 04:27 Hydrocodone/Acetaminophen (*Crx) 5-325 Mg Tablet PO 1 tab Q6H PRN Administration Pain Rated 7-10 Benzonatate 100 mg 02/27/25 16:47 02/27/25 21:12 Benzonatate 100 Mg Capsule PO 100 mg TID PRN Administration Cough Enoxaparin Sodium 30 mg 03/05/25 09:00 03/08/25 10:01 Enoxaparin 30 Mg/0.3 Ml Syringe SUB-Q 30 mg DAILY PABLO Administration Folic Acid 1 mg 02/28/25 09:00 03/08/25 10:00 Folic Acid 1 Mg Tablet PO 1 mg QAM PABLO Administration Guaifenesin 600 mg 02/27/25 16:47 02/27/25 21:12 Guaifenesin 12 Hr 600 Mg Tabcr PO 600 mg Q12HR PRN Administration Congestion Albumin Human 100 mls @ 60 mls/hr 03/04/25 12:05 03/08/25 13:19 Albutein IVPB 60 mls/hr Q12H PABLO Administration Levothyroxine Sodium 75 mcg 02/28/25 06:30 03/03/25 05:50 Levothyroxine Sodium 75 Mcg Tablet PO 75 mcg DAILY@0630 [facility] Administration Magnesium Oxide 400 mg 02/28/25 09:00 03/08/25 10:00 Magnesium Oxide 400 Mg Tablet PO 400 mg BID PABLO Administration Metoprolol Succinate 50 mg 02/28/25 09:00 03/08/25 10:01 Metoprolol Succinate Ext Rel 50 Mg Tabcr PO Not Given DAILY [facility] Midodrine 10 mg 03/04/25 17:25 03/08/25 13:19 Midodrine Hcl 10 Mg Tablet PO 10 mg TID PABLO Administration Multivitamins Therapeutic 1 tablet 02/27/25 22:25 03/07/25 20:24 Multivitamins Therapeutic Tab (*Bkc) PO 1 tablet QHS [facility] Administration Oxybutynin Chloride 5 mg 03/03/25 15:09 03/03/25 15:23 Oxybutynin Chloride 5 Mg Tablet PO 5 mg BID PRN Administration spasm Tamsulosin HCl 0.4 mg 02/28/25 09:00 03/08/25 10:01 Tamsulosin Hcl 0.4 Mg Capsule PO 0.4 mg QAM [facility] Administration Trazodone HCl 25 mg 03/08/25 21:00 Trazodone Hcl 25 Mg Tablet PO [facility] Vitamin D 5,000 units 02/28/25 09:00 03/08/25 10:00 Cholecalciferol 5,000 Units Tablet BY MOUTH 5,000 units DAILY PABLO Administration Radiology Results: ITS Impressions Chest X-Ray 02/27/25 13:59 IMPRESSION: 1. No significant interval change in bilateral small pleural effusions, right greater than left with opacities at the right lung base which could represent associated atelectasis and/or pneumonia. Abdomen/Pelvis CT 03/03/25 12:23 Impression: Majano catheter in satisfactory position within urinary bladder. Moderate to large right pleural effusion and small left pleural effusion with bibasilar atelectasis, right worse than left. Small bilateral nonobstructing renal stones. No hydronephrosis or ureteral stone. Bilateral ureteral stents. Possible mild cirrhotic change of liver. Moderate abdominopelvic ascites. Thyroid Ultrasound 03/04/25 11:46 IMPRESSION: Coarse heterogeneous echogenicity detected diffusely throughout the entirety of the thyroid gland, without increased vascularity to suggest thyroiditis. Benign subcentimeter cysts (TR 1) detected bilaterally for which no further follow-up is needed. In a patient with elevated TSH and elevated free T4, the suggestion of a possible pituitary gland disorder would be more common than inherent thyroid disease. Paracentesis Ultrasound 03/06/25 17:09 IMPRESSION: 1. Successful ultrasound-guided paracentesis yielding 4200 mL of yellowish fluid. Labs Labs: Laboratory Results - last 24 hr 02/28/25 03/08/25 05:21 03:44 PT 23.5 H INR 2.1 Sodium 131 L Potassium 4.7 Chloride 99 Carbon Dioxide 23 Anion Gap 9 BUN 63 H Creatinine 5.67 H Estim Creat Clear Calc 11 Estimated GFR 10 L Glucose 112 H Calcium 8.3 L Total Bilirubin 2.5 H AST 34 ALT 13 Alkaline Phosphatase 164 H Total Protein 5.0 L Albumin 2.8 L Cryoglobulin Qualit Negative
[2025-03-08] MEDS: MULTIVITAMINS THERAPEUTIC TAB (*BKC) 1 TABLET PO (20:54)
[2025-03-08] MEDS: traZODone HCL 25 MG TABLET PO (20:54)
[2025-03-09] VITALS (10 sets, daily range): BP systolic 86–103; BP diastolic 48–62; PULSE 61–87; RESP 16–18; TEMP 36.6–36.7; O2SAT 98–100
[2025-03-09] MEDS: ALBUMIN HUMAN 25% 25 GM/100 ML 100 ML IVPB ×3 (00:02→23:45)
[2025-03-09] MEDS: TRIMETHOBENZAMIDE HCL 200 MG/2 ML VIAL IM (00:02)
[2025-03-09] MEDS: FOLIC ACID 1 MG TABLET PO (08:42)
[2025-03-09] MEDS: TAMSULOSIN HCL 0.4 MG CAPSULE PO (08:42)
[2025-03-09] MEDS: MIDODRINE HCL 10 MG TABLET PO ×3 (08:42→17:15)
[2025-03-09] MEDS: MAGNESIUM OXIDE 400 MG TABLET PO ×2 (08:42→17:15)
[2025-03-09] MEDS: ENOXAPARIN 30 MG/0.3 ML SYRINGE SUB-Q (08:45)
[2025-03-09] MEDS: CHOLECALCIFEROL 5,000 UNITS TABLET 5000 UNITS BY MOUTH (08:45)
--- NOTE | 2025-03-09 15:34 | P.PNIM_ITS ---
Progress Note: A&P Assessment and Plan (1) Volume overload: Qualifiers: Hypervolemia type: unspecified Qualified Code(s): E87.70 - Fluid overload, unspecified Code(s): E87.70 - Fluid overload, unspecified Status: Acute Assessment and Plan: * Chest x-ray showing bilateral small pleural effusions right greater than left with opacities in the right lung base which could represent pneumonia * Abdomen/pelvis CT shown anasarca with very small left and small to moderate- sized right pleural effusion, moderate amount of ascites and prominent body wall and less severe mesenteric and retroperitoneal edema, increased mild ground-glass opacity in the lingula which could represent pneumonia, a few tiny nonobstructive renal stones without hydronephrosis or obstruction, infrarenal IVC filter in place * ECHO from 02/14 EF 65-70% * Continue holding Bumex * Patient is awaiting hospice Nephrology following (2) Ascites: Qualifiers: Ascites type: other type Qualified Code(s): R18.8 - Other ascites Code(s): R18.8 - Other ascites Status: Acute Assessment and Plan: Peritoneal fluid culture negative continue Cefepime , Discontinued Vanc f/u cultures (3) Cirrhosis: Qualifiers: Hepatic cirrhosis type: unspecified hepatic cirrhosis Ascites presence: with ascites Qualified Code(s): K74.60 - Unspecified cirrhosis of liver; R18.8 - Other ascites Code(s): K74.60 - Unspecified cirrhosis of liver Status: Acute Assessment and Plan: * Total bili initially 2.8 now up to 3.1 * Alkaline phosphate 278> 221 * Ammonia 42 on admission, now down to less than 9 * UA showed 1+ urine bilirubin * GI following and recommending Midodrine and Octreotide infusion for hepatorenal syndrome * Continue Albumin per GI recommendation * Unable to get a true MELD score due to supratherapeutic INR * Underwent paracentesis and removed 5 L * Pending fluid analysis, f/u cultures (4) Supratherapeutic INR: Code(s): R79.1 - Abnormal coagulation profile Status: Acute Assessment and Plan: * Initial INR 7.6 now down to 2.2 * Underwent thoracentesis and removed 5 L * Xarelto stopped and he will need therapeutic Lovenox per GI recommendation as the only option for anticoagulation considering his liver failure. * s/p vitamin K today and repeat INR * Continue to trend (5) Acute kidney injury: Code(s): N17.9 - Acute kidney failure, unspecified Status: Acute Assessment and Plan: * ?Hepatorenal syndrome * Cr 5.19 from 2.82 * Baseline creatinine appears to be 1.13-1.17, EGFR 60 to greater than 60 * Continue Octreotide, Midodrine and Albumin * Patient may need Dialysis * Nephrology following (6) Pneumonia: Qualifiers: Pneumonia type: due to unspecified organism Laterality: unspecified laterality Lung location: unspecified part of lung Qualified Code(s): J18.9 - Pneumonia, unspecified organism Code(s): J18.9 - Pneumonia, unspecified organism Status: Suspected Assessment and Plan: * Chest x-ray showing small bilateral small pleural effusion right greater than left with opacities at the right lung base which could represent pneumonia * Abdomen/pelvis CT showed a increase mild ground-glass opacity in the lingula which could represent pneumonia * On Cefepime * s/p Vanc as MRSA negative, completed Azithromycin ' * Continue Cefepime (7) Urinary tract infection: Qualifiers: Hematuria presence: without hematuria Urinary tract infection type: acute cystitis Qualified Code(s): N30.00 - Acute cystitis without hematuria Code(s): N39.0 - Urinary tract infection, site not specified Status: Acute Assessment and Plan: * UA shown brown urine color, turbid appearance, 1+ protein, 1+ urine blood, 1+ urine bilirubin, 2+ leukocyte, greater than 100 urine RBC, 21-50 urine WBC, 3- 5 urine casts, rare urine eosinophils. * Urine culture was obtained and pending * Continue cefepime (8) Chronic anemia: Code(s): D64.9 - Anemia, unspecified Status: Chronic Assessment and Plan: Likely secondary to cirrhosis of the liver and chronic kidney disease, chronic * Hemoglobin 7.7, MCV 102.4 * Anemia workup in the past showed normal iron, ferritin, vitamin B12, folate * TSH and T4 elevated * B12/folate elevated, isat 67 * monitor H and H (9) Hypertension: Qualifiers: Hypertension type: primary hypertension Qualified Code(s): I10 - Essential (primary) hypertension Code(s): I10 - Essential (primary) hypertension Status: Chronic Assessment and Plan: * Blood pressure ranging 104/65 to 110/70 * Patient is not currently on any home medications for hypertension * Continue to trend (10) CHEO (obstructive sleep apnea): Code(s): G47.33 - Obstructive sleep apnea (adult) (pediatric) Status: Chronic Assessment and Plan: * Continue CPAP (11) Atrial fibrillation: Qualifiers: Atrial fibrillation type: paroxysmal Qualified Code(s): I48.0 - Paroxysmal atrial fibrillation Code(s): I48.91 - Unspecified atrial fibrillation Status: Chronic Assessment and Plan: * Patient initially in AFib RVR on arrival to the ED * EKG showing AFib with a rate of 87, QTC 524, right bundle branch block, left posterior fascicular block * Xarelto stopped--Will need therapeutic Lovenox when appropriate as this is the only anticoagulation recommended with liver failure. * Holding Metoprolol due to low blood pressure * Continue cardiac monitoring (12) Hypothyroidism: Code(s): E03.9 - Hypothyroidism, unspecified Status: Acute Assessment and Plan: * Continue Synthroid * TSH adn T4 elevated * hold levothyroxine * monitor thyroid studies * US thyroid unremarkable * MRI brain not needed as patient is going hospice Plan Acute urinary retention Urology consulted and rowe was inserted but patient complained of pain and it was removed passing urine and urology following DVT prophylaxis on Sq Lovenox Awaiting hospice placement Subjective Date/time seen: 03/09/25 15:34 Interval history: Patient comfortable at bedside and awaiting hospice facility placement Review of Systems Review of Systems: All systems reviewed & are unremarkable except as noted in HPI and below Exam Narrative: General: In no acute distress, well nourished Head: atraumatic, no encephalopathy Eyes: PERRLA, sclera clear ENT: moist mucous membranes, nasal passages clear Neck: supple, no JVD, no adenopathy, trachea midline Cardiac: Normal S1 and S2. No murmur, gallops or friction rubs, peripheral pulses intact. Respiratory: Bilateral crackles in bases, no adventitious lung sounds, currently on room air Gastrointestinal: firm, taunt, non-tender, normoactive bowel sounds. Anasarca present : voiding without difficulty. Extremities: moves all extremities well, 2+ pitting edema BLE Skin: clean, dry, intact. No wounds or lesions. Neuro: Alert and oriented x4, cranial nerves intact, no neuro deficits. Psych: normal mood, normal affect, interactive Const: General: comfortable and no acute distress Other: , male, nontoxic appearance, chronically ill-appearing HENMT: Face/Nose/Sinus: Normal nares present Mouth: Yes moist mucous membranes Eyes: General: appearance normal, both eyes and all related structures Sclera: sclerae normal Pupils: Equal, round and reactive pupils present EOM: EOMs intact bilaterally Resp: Effort & Inspection: normal respiratory effort Other: Bibasilar rales. Cardio: Rate: regular rate Rhythm: regular rhythm Other: S1-S2 present without murmur, rub, ectopy GI: Other: rounded abdomen, slight fluid wave with palpation. No tenderness with palpation. Normoactive bowel sounds in all quadrants. : Other: External catheter in place, T colored output. Neuro: Cranial nerves: Yes Equal, round and reactive pupils present Speech: normal speech Motor exam (neuro): 5/5 motor strength present throughout Sensory Exam: normal sensation Other: A&O x4 Extrem: Other: 3+ pitting edema starting at upper thigh s to ankles bilaterally, R>L. Psych: Mental Status: mental status grossly normal Affect: normal affect Other: Good insight and judgment, pleasant. Objective Data Vital Signs Vital Signs: Vital Signs - 24 hr 03/08/25 15:43 03/08/25 16:00 03/08/25 18:00 Temperature 98.9 F Pulse Rate 70 68 80 Respiratory Rate 18 Blood Pressure 89/57 L Pulse Oximetry 100 Oxygen Delivery 03/08/25 20:00 03/08/25 20:00 03/08/25 20:00 Temperature 97.7 F Pulse Rate 73 69 69 Respiratory Rate 18 18 Blood Pressure 89/55 L Pulse Oximetry 97 97 Oxygen Delivery Room Air 03/08/25 22:00 03/09/25 00:00 03/09/25 00:00 Temperature 98.0 F Pulse Rate 72 80 69 Respiratory Rate 18 18 Blood Pressure 86/56 L Pulse Oximetry 98 98 Oxygen Delivery Room Air 03/09/25 00:00 03/09/25 02:00 03/09/25 04:00 Temperature 97.8 F Pulse Rate 69 65 76 Respiratory Rate 18 Blood Pressure 94/48 L Pulse Oximetry 100 Oxygen Delivery 03/09/25 04:00 03/09/25 04:00 03/09/25 05:14 Temperature Pulse Rate 66 66 74 Respiratory Rate 18 Blood Pressure Pulse Oximetry 100 Oxygen Delivery Room Air 03/09/25 07:30 03/09/25 08:00 03/09/25 10:00 Temperature 97.8 F Pulse Rate 87 76 68 Respiratory Rate 18 Blood Pressure 103/62 Pulse Oximetry 99 Oxygen Delivery Intake/Output Intake/Output: Intake & Output 03/06/25 03/07/25 03/08/25 03/09/25 23:59 23:59 23:59 23:59 Intake Total 640 1065 1820 980 Output Total 4300 250 300 Balance -3660 815 1820 680 Meds/Results Medications: Active Medications Generic Name Dose Route Start Last Admin Trade Name Freq PRN Reason Stop Dose Admin Acetaminophen 325 mg 02/27/25 16:47 Acetaminophen 325 Mg Tablet PO Q6H PRN Mild Pain (1-3) or Fever Hydrocodone Bitart/Acetaminophen 1 tab 03/03/25 16:51 03/08/25 04:27 Hydrocodone/Acetaminophen (*Crx) 5-325 Mg Tablet PO 1 tab Q6H PRN Administration Pain Rated 7-10 Benzonatate 100 mg 02/27/25 16:47 02/27/25 21:12 Benzonatate 100 Mg Capsule PO 100 mg TID PRN Administration Cough Enoxaparin Sodium 30 mg 03/05/25 09:00 03/09/25 08:45 Enoxaparin 30 Mg/0.3 Ml Syringe SUB-Q 30 mg DAILY PABLO Administration Folic Acid 1 mg 02/28/25 09:00 03/09/25 08:42 Folic Acid 1 Mg Tablet PO 1 mg QAM PABLO Administration Guaifenesin 600 mg 02/27/25 16:47 02/27/25 21:12 Guaifenesin 12 Hr 600 Mg Tabcr PO 600 mg Q12HR PRN Administration Congestion Albumin Human 100 mls @ 60 mls/hr 03/04/25 12:05 03/09/25 13:15 Albutein IVPB 60 mls/hr Q12H PABLO Administration Levothyroxine Sodium 75 mcg 02/28/25 06:30 03/03/25 05:50 Levothyroxine Sodium 75 Mcg Tablet PO 75 mcg DAILY@0630 PABLO Administration Magnesium Oxide 400 mg 02/28/25 09:00 03/09/25 08:42 Magnesium Oxide 400 Mg Tablet PO 400 mg BID PABLO Administration Midodrine 10 mg 03/04/25 17:25 03/09/25 13:15 Midodrine Hcl 10 Mg Tablet PO 10 mg TID PABLO Administration Multivitamins Therapeutic 1 tablet 02/27/25 22:25 03/08/25 20:54 Multivitamins Therapeutic Tab (*Bkc) PO 1 tablet QHS PABLO Administration Oxybutynin Chloride 5 mg 03/03/25 15:09 03/03/25 15:23 Oxybutynin Chloride 5 Mg Tablet PO 5 mg BID PRN Administration spasm Tamsulosin HCl 0.4 mg 02/28/25 09:00 03/09/25 08:42 Tamsulosin Hcl 0.4 Mg Capsule PO 0.4 mg QAM PABLO Administration Trazodone HCl 25 mg 03/08/25 21:00 03/08/25 20:54 Trazodone Hcl 25 Mg Tablet PO 25 mg HS PABLO Administration Trimethobenzamide HCl 200 mg 03/08/25 21:15 03/09/25 00:02 Trimethobenzamide Hcl 200 Mg/2 Ml Vial IM 200 mg Q6H PRN Administration Nausea And Vomiting Vitamin D 5,000 units 02/28/25 09:00 03/09/25 08:45 Cholecalciferol 5,000 Units Tablet BY MOUTH 5,000 units DAILY PABLO Administration Radiology Results: ITS Impressions Chest X-Ray 02/27/25 13:59 IMPRESSION: 1. No significant interval change in bilateral small pleural effusions, right greater than left with opacities at the right lung base which could represent associated atelectasis and/or pneumonia. Abdomen/Pelvis CT 03/03/25 12:23 Impression: Rowe catheter in satisfactory position within urinary bladder. Moderate to large right pleural effusion and small left pleural effusion with bibasilar atelectasis, right worse than left. Small bilateral nonobstructing renal stones. No hydronephrosis or ureteral stone. Bilateral ureteral stents. Possible mild cirrhotic change of liver. Moderate abdominopelvic ascites. Thyroid Ultrasound 03/04/25 11:46 IMPRESSION: Coarse heterogeneous echogenicity detected diffusely throughout the entirety of the thyroid gland, without increased vascularity to suggest thyroiditis. Benign subcentimeter cysts (TR 1) detected bilaterally for which no further follow-up is needed. In a patient with elevated TSH and elevated free T4, the suggestion of a possible pituitary gland disorder would be more common than inherent thyroid disease. Paracentesis Ultrasound 03/06/25 17:09 IMPRESSION: 1. Successful ultrasound-guided paracentesis yielding 4200 mL of yellowish fluid. Quality VTE Prophylaxis VTE prophylaxis: mechanical ordered
[2025-03-09] MEDS: traZODone HCL 25 MG TABLET PO (20:33)
[2025-03-10] VITALS: BP 90/55; PULSE 82; RESP 18; TEMP 36.7; O2SAT 98
[2025-03-10] MEDS: HYDROcodone/acetaminophen (*CRX) 5-325 MG TABLET 1 TAB PO ×2 (02:15→20:53)
[2025-03-10] MEDS: oxyBUTYnin CHLORIDE 5 MG TABLET PO (02:18)
[2025-03-10 07:51] VITALS: BP 104/62; PULSE 91; RESP 18; TEMP 36.8; O2SAT 98
[2025-03-10] MEDS: TAMSULOSIN HCL 0.4 MG CAPSULE PO (08:46)
[2025-03-10] MEDS: FOLIC ACID 1 MG TABLET PO (08:46)
[2025-03-10] MEDS: ENOXAPARIN 30 MG/0.3 ML SYRINGE SUB-Q (08:46)
[2025-03-10] MEDS: MAGNESIUM OXIDE 400 MG TABLET PO ×2 (08:46→16:43)
[2025-03-10] MEDS: MIDODRINE HCL 10 MG TABLET PO ×3 (08:46→16:43)
[2025-03-10] MEDS: CHOLECALCIFEROL 5,000 UNITS TABLET 5000 UNITS BY MOUTH (08:47)
[2025-03-10] MEDS: ALBUMIN HUMAN 25% 25 GM/100 ML 100 ML IVPB (12:20)
--- NOTE | 2025-03-10 12:35 | PC.NURSE ---
On 03/10/25, the student, [Negar Nino ], provided care and completed [facility] documentation on this patient. I have reviewed the student's documentation and agree with the findings.
[2025-03-10 15:41] VITALS: BP 96/62; PULSE 58; RESP 18; TEMP 36.2; O2SAT 100
--- NOTE | 2025-03-10 17:29 | P.PNIM_ITS ---
Progress Note: A&P Assessment and Plan (1) Volume overload: Qualifiers: Hypervolemia type: unspecified Qualified Code(s): E87.70 - Fluid overload, unspecified Code(s): E87.70 - Fluid overload, unspecified Status: Acute Assessment and Plan: * Chest x-ray showing bilateral small pleural effusions right greater than left with opacities in the right lung base which could represent pneumonia * Abdomen/pelvis CT shown anasarca with very small left and small to moderate- sized right pleural effusion, moderate amount of ascites and prominent body wall and less severe mesenteric and retroperitoneal edema, increased mild ground-glass opacity in the lingula which could represent pneumonia, a few tiny nonobstructive renal stones without hydronephrosis or obstruction, infrarenal IVC filter in place * ECHO from 02/14 EF 65-70% * Continue holding Bumex * Patient is awaiting hospice Nephrology following (2) Ascites: Qualifiers: Ascites type: other type Qualified Code(s): R18.8 - Other ascites Code(s): R18.8 - Other ascites Status: Acute Assessment and Plan: Peritoneal fluid culture negative continue Cefepime , Discontinued Vanc f/u cultures (3) Cirrhosis: Qualifiers: Hepatic cirrhosis type: unspecified hepatic cirrhosis Ascites presence: with ascites Qualified Code(s): K74.60 - Unspecified cirrhosis of liver; R18.8 - Other ascites Code(s): K74.60 - Unspecified cirrhosis of liver Status: Acute Assessment and Plan: * Total bili initially 2.8 now up to 3.1 * Alkaline phosphate 278> 221 * Ammonia 42 on admission, now down to less than 9 * UA showed 1+ urine bilirubin * GI following and recommending Midodrine and Octreotide infusion for hepatorenal syndrome * Continue Albumin per GI recommendation * Unable to get a true MELD score due to supratherapeutic INR * Underwent paracentesis and removed 5 L * Pending fluid analysis, f/u cultures (4) Supratherapeutic INR: Code(s): R79.1 - Abnormal coagulation profile Status: Acute Assessment and Plan: * Initial INR 7.6 now down to 2.2 * Underwent thoracentesis and removed 5 L * Xarelto stopped and he will need therapeutic Lovenox per GI recommendation as the only option for anticoagulation considering his liver failure. * s/p vitamin K today and repeat INR * Continue to trend (5) Acute kidney injury: Code(s): N17.9 - Acute kidney failure, unspecified Status: Acute Assessment and Plan: * ?Hepatorenal syndrome * Cr 5.19 from 2.82 * Baseline creatinine appears to be 1.13-1.17, EGFR 60 to greater than 60 * Continue Octreotide, Midodrine and Albumin * Patient may need Dialysis * Nephrology following (6) Pneumonia: Qualifiers: Pneumonia type: due to unspecified organism Laterality: unspecified laterality Lung location: unspecified part of lung Qualified Code(s): J18.9 - Pneumonia, unspecified organism Code(s): J18.9 - Pneumonia, unspecified organism Status: Suspected Assessment and Plan: * Chest x-ray showing small bilateral small pleural effusion right greater than left with opacities at the right lung base which could represent pneumonia * Abdomen/pelvis CT showed a increase mild ground-glass opacity in the lingula which could represent pneumonia * On Cefepime * s/p Vanc as MRSA negative, completed Azithromycin ' * Continue Cefepime (7) Urinary tract infection: Qualifiers: Hematuria presence: without hematuria Urinary tract infection type: acute cystitis Qualified Code(s): N30.00 - Acute cystitis without hematuria Code(s): N39.0 - Urinary tract infection, site not specified Status: Acute Assessment and Plan: * UA shown brown urine color, turbid appearance, 1+ protein, 1+ urine blood, 1+ urine bilirubin, 2+ leukocyte, greater than 100 urine RBC, 21-50 urine WBC, 3- 5 urine casts, rare urine eosinophils. * Urine culture was obtained and pending * Continue cefepime (8) Chronic anemia: Code(s): D64.9 - Anemia, unspecified Status: Chronic Assessment and Plan: Likely secondary to cirrhosis of the liver and chronic kidney disease, chronic * Hemoglobin 7.7, MCV 102.4 * Anemia workup in the past showed normal iron, ferritin, vitamin B12, folate * TSH and T4 elevated * B12/folate elevated, isat 67 * monitor H and H (9) Hypertension: Qualifiers: Hypertension type: primary hypertension Qualified Code(s): I10 - Essential (primary) hypertension Code(s): I10 - Essential (primary) hypertension Status: Chronic Assessment and Plan: * Blood pressure ranging 104/65 to 110/70 * Patient is not currently on any home medications for hypertension * Continue to trend (10) CHEO (obstructive sleep apnea): Code(s): G47.33 - Obstructive sleep apnea (adult) (pediatric) Status: Chronic Assessment and Plan: * Continue CPAP (11) Atrial fibrillation: Qualifiers: Atrial fibrillation type: paroxysmal Qualified Code(s): I48.0 - Paroxysmal atrial fibrillation Code(s): I48.91 - Unspecified atrial fibrillation Status: Chronic Assessment and Plan: * Patient initially in AFib RVR on arrival to the ED * EKG showing AFib with a rate of 87, QTC 524, right bundle branch block, left posterior fascicular block * Xarelto stopped--Will need therapeutic Lovenox when appropriate as this is the only anticoagulation recommended with liver failure. * Holding Metoprolol due to low blood pressure * Continue cardiac monitoring (12) Hypothyroidism: Code(s): E03.9 - Hypothyroidism, unspecified Status: Acute Assessment and Plan: * Continue Synthroid * TSH adn T4 elevated * hold levothyroxine * monitor thyroid studies * US thyroid unremarkable * MRI brain not needed as patient is going hospice Plan Acute urinary retention Urology consulted and rowe was inserted but patient complained of pain and it was removed passing urine and urology following DVT prophylaxis on Sq Lovenox Awaiting hospice placement Subjective Date/time seen: 03/10/25 17:29 Interval history: Pending for hospice Review of Systems Review of Systems: All systems reviewed & are unremarkable except as noted in HPI and below Exam Narrative: General: In no acute distress, well nourished Head: atraumatic, no encephalopathy Eyes: PERRLA, sclera clear ENT: moist mucous membranes, nasal passages clear Neck: supple, no JVD, no adenopathy, trachea midline Cardiac: Normal S1 and S2. No murmur, gallops or friction rubs, peripheral pulses intact. Respiratory: Bilateral crackles in bases, no adventitious lung sounds, currently on room air Gastrointestinal: firm, taunt, non-tender, normoactive bowel sounds. Anasarca present : voiding without difficulty. Extremities: moves all extremities well, 2+ pitting edema BLE Skin: clean, dry, intact. No wounds or lesions. Neuro: Alert and oriented x4, cranial nerves intact, no neuro deficits. Psych: normal mood, normal affect, interactive Const: General: comfortable and no acute distress Other: , male, nontoxic appearance, chronically ill-appearing HENMT: Face/Nose/Sinus: Normal nares present Mouth: Yes moist mucous membranes Eyes: General: appearance normal, both eyes and all related structures Sclera: sclerae normal Pupils: Equal, round and reactive pupils present EOM: EOMs intact bilaterally Resp: Effort & Inspection: normal respiratory effort Other: Bibasilar rales. Cardio: Rate: regular rate Rhythm: regular rhythm Other: S1-S2 present without murmur, rub, ectopy GI: Other: rounded abdomen, slight fluid wave with palpation. No tenderness with palpation. Normoactive bowel sounds in all quadrants. : Other: External catheter in place, T colored output. Neuro: Cranial nerves: Yes Equal, round and reactive pupils present Speech: normal speech Motor exam (neuro): 5/5 motor strength present throughout Sensory Exam: normal sensation Other: A&O x4 Extrem: Other: 3+ pitting edema starting at upper thigh s to ankles bilaterally, R>L. Psych: Mental Status: mental status grossly normal Affect: normal affect Other: Good insight and judgment, pleasant. Objective Data Vital Signs Vital Signs: Vital Signs - 24 hr 03/09/25 18:59 03/09/25 20:30 03/10/25 00:00 Temperature 97.9 F 98.1 F Pulse Rate 61 61 82 Respiratory Rate 18 18 18 Blood Pressure 90/55 L 90/55 L Pulse Oximetry 98 98 98 Oxygen Delivery Room Air 03/10/25 07:51 03/10/25 15:41 Temperature 98.2 F 97.2 F L Pulse Rate 91 58 L Respiratory Rate 18 18 Blood Pressure 104/62 96/62 L Pulse Oximetry 98 100 Oxygen Delivery Intake/Output Intake/Output: Intake & Output 03/07/25 03/08/25 03/09/25 03/10/25 23:59 23:59 23:59 23:59 Intake Total 1065 1820 2300 800 Output Total 250 350 30 Balance 815 1820 1950 770 Meds/Results Medications: Active Medications Generic Name Dose Route Start Last Admin Trade Name Freq PRN Reason Stop Dose Admin Acetaminophen 325 mg 02/27/25 16:47 Acetaminophen 325 Mg Tablet PO Q6H PRN Mild Pain (1-3) or Fever Hydrocodone Bitart/Acetaminophen 1 tab 03/03/25 16:51 03/10/25 02:15 Hydrocodone/Acetaminophen (*Crx) 5-325 Mg Tablet PO 1 tab Q6H PRN Administration Pain Rated 7-10 Benzonatate 100 mg 02/27/25 16:47 02/27/25 21:12 Benzonatate 100 Mg Capsule PO 100 mg TID PRN Administration Cough Enoxaparin Sodium 30 mg 03/05/25 09:00 03/10/25 08:46 Enoxaparin 30 Mg/0.3 Ml Syringe SUB-Q 30 mg DAILY PABLO Administration Folic Acid 1 mg 02/28/25 09:00 03/10/25 08:46 Folic Acid 1 Mg Tablet PO 1 mg QAM PABLO Administration Guaifenesin 600 mg 02/27/25 16:47 02/27/25 21:12 Guaifenesin 12 Hr 600 Mg Tabcr PO 600 mg Q12HR PRN Administration Congestion Albumin Human 100 mls @ 60 mls/hr 03/04/25 12:05 03/10/25 14:01 Albutein IVPB Infused Q12H PABLO Infusion Levothyroxine Sodium 75 mcg 02/28/25 06:30 03/03/25 05:50 Levothyroxine Sodium 75 Mcg Tablet PO 75 mcg DAILY@0630 PABLO Administration Magnesium Oxide 400 mg 02/28/25 09:00 03/10/25 16:43 Magnesium Oxide 400 Mg Tablet PO 400 mg BID PABLO Administration Midodrine 10 mg 03/04/25 17:25 03/10/25 16:43 Midodrine Hcl 10 Mg Tablet PO 10 mg TID PABLO Administration Multivitamins Therapeutic 1 tablet 02/27/25 22:25 03/09/25 20:34 Multivitamins Therapeutic Tab (*Bkc) PO Not Given QHS PABLO Oxybutynin Chloride 5 mg 03/03/25 15:09 03/10/25 02:18 Oxybutynin Chloride 5 Mg Tablet PO 5 mg BID PRN Administration spasm Tamsulosin HCl 0.4 mg 02/28/25 09:00 03/10/25 08:46 Tamsulosin Hcl 0.4 Mg Capsule PO 0.4 mg QAM PABLO Administration Trazodone HCl 25 mg 03/08/25 21:00 03/09/25 20:33 Trazodone Hcl 25 Mg Tablet PO 25 mg HS PABLO Administration Trimethobenzamide HCl 200 mg 03/08/25 21:15 03/09/25 00:02 Trimethobenzamide Hcl 200 Mg/2 Ml Vial IM 200 mg Q6H PRN Administration Nausea And Vomiting Vitamin D 5,000 units 02/28/25 09:00 03/10/25 08:47 Cholecalciferol 5,000 Units Tablet BY MOUTH 5,000 units DAILY PABLO Administration Radiology Results: ITS Impressions Chest X-Ray 02/27/25 13:59 IMPRESSION: 1. No significant interval change in bilateral small pleural effusions, right greater than left with opacities at the right lung base which could represent associated atelectasis and/or pneumonia. Abdomen/Pelvis CT 03/03/25 12:23 Impression: Rowe catheter in satisfactory position within urinary bladder. Moderate to large right pleural effusion and small left pleural effusion with bibasilar atelectasis, right worse than left. Small bilateral nonobstructing renal stones. No hydronephrosis or ureteral stone. Bilateral ureteral stents. Possible mild cirrhotic change of liver. Moderate abdominopelvic ascites. Thyroid Ultrasound 03/04/25 11:46 IMPRESSION: Coarse heterogeneous echogenicity detected diffusely throughout the entirety of the thyroid gland, without increased vascularity to suggest thyroiditis. Benign subcentimeter cysts (TR 1) detected bilaterally for which no further follow-up is needed. In a patient with elevated TSH and elevated free T4, the suggestion of a possible pituitary gland disorder would be more common than inherent thyroid disease. Paracentesis Ultrasound 03/06/25 17:09 IMPRESSION: 1. Successful ultrasound-guided paracentesis yielding 4200 mL of yellowish fluid. Quality VTE Prophylaxis VTE prophylaxis: mechanical ordered Hospitalist [facility] Advance Care Plan I have confirmed that the patient's Advanced Care Plan is present, code status is documented, or surrogate decision maker is listed in patient medical record.: Yes Medication Reconciliation I have utilized all available resources to obtain, update and review the patients current medications (includes all prescriptions, OTC, herbals, cannabis, and nutritional supplements).: Yes
--- NOTE | 2025-03-10 17:53 | PC.NURSE ---
This patient, Murphy Contreras, was transferred to [[id number] ] on 03/10/25 at 1753. Personal belongings sent with patient. Report given to [HEIDI Miller @ 2700 ]. Appropriate documentation sent with patient.
--- NOTE | 2025-03-10 18:22 | PC.NURSE ---
This patient, Murphy Contreras, was received from IMU on 03/10/25 at 1800. Patient/family oriented to unit policies and routines. Report received from HEIDI Wheatley
[2025-03-10 18:25] VITALS: BP 93/57; PULSE 72; RESP 16; TEMP 36.6; O2SAT 100
[2025-03-10] MEDS: traZODone HCL 25 MG TABLET PO (20:53)
[2025-03-10 21:22] VITALS: BP 90/52; PULSE 60; RESP 16; TEMP 36.6; O2SAT 98
[2025-03-11] MEDS: ALBUMIN HUMAN 25% 25 GM/100 ML 100 ML IVPB ×3 (00:46→23:12)
[2025-03-11] MEDS: HYDROcodone/acetaminophen (*CRX) 5-325 MG TABLET 1 TAB PO ×2 (02:27→23:12)
[2025-03-11 06:13] VITALS: BP 88/52; PULSE 72; RESP 16; TEMP 36.5; O2SAT 98
[2025-03-11] MEDS: MIDODRINE HCL 10 MG TABLET PO ×3 (08:37→17:18)
[2025-03-11] MEDS: FOLIC ACID 1 MG TABLET PO (08:37)
[2025-03-11] MEDS: CHOLECALCIFEROL 5,000 UNITS TABLET 5000 UNITS BY MOUTH (08:37)
[2025-03-11] MEDS: MAGNESIUM OXIDE 400 MG TABLET PO ×2 (08:37→17:18)
[2025-03-11] MEDS: TAMSULOSIN HCL 0.4 MG CAPSULE PO (08:37)
[2025-03-11] MEDS: ENOXAPARIN 30 MG/0.3 ML SYRINGE SUB-Q (08:37)
--- NOTE | 2025-03-11 09:36 | PCDIET ---
Nutrition note: Pt is awaiting discharge on hospice with regular diet and Ensure Enlive BID. No new labs. Dietitians will sign off, please consult for nutrition needs.
--- NOTE | 2025-03-11 09:45 | P.PNIM_ITS ---
Progress Note: A&P Assessment and Plan (1) Volume overload: Qualifiers: Hypervolemia type: unspecified Qualified Code(s): E87.70 - Fluid overload, unspecified Code(s): E87.70 - Fluid overload, unspecified Status: Acute Assessment and Plan: * Chest x-ray showing bilateral small pleural effusions right greater than left with opacities in the right lung base which could represent pneumonia * Abdomen/pelvis CT shown anasarca with very small left and small to moderate- sized right pleural effusion, moderate amount of ascites and prominent body wall and less severe mesenteric and retroperitoneal edema, increased mild ground-glass opacity in the lingula which could represent pneumonia, a few tiny nonobstructive renal stones without hydronephrosis or obstruction, infrarenal IVC filter in place * ECHO from 02/14 EF 65-70% * Continue holding Bumex * Patient is awaiting hospice Nephrology following (2) Ascites: Qualifiers: Ascites type: other type Qualified Code(s): R18.8 - Other ascites Code(s): R18.8 - Other ascites Status: Acute Assessment and Plan: Peritoneal fluid culture negative continue Cefepime , Discontinued Vanc f/u cultures (3) Cirrhosis: Qualifiers: Ascites presence: with ascites Hepatic cirrhosis type: unspecified hepatic cirrhosis Qualified Code(s): K74.60 - Unspecified cirrhosis of liver; R18.8 - Other ascites Code(s): K74.60 - Unspecified cirrhosis of liver Status: Acute Assessment and Plan: * Total bili initially 2.8 now up to 3.1 * Alkaline phosphate 278> 221 * Ammonia 42 on admission, now down to less than 9 * UA showed 1+ urine bilirubin * GI following and recommending Midodrine and Octreotide infusion for hepatorenal syndrome * Continue Albumin per GI recommendation * Unable to get a true MELD score due to supratherapeutic INR * Underwent paracentesis and removed 5 L * Pending fluid analysis, f/u cultures (4) Supratherapeutic INR: Code(s): R79.1 - Abnormal coagulation profile Status: Acute Assessment and Plan: * Initial INR 7.6 now down to 2.2 * Underwent thoracentesis and removed 5 L * Xarelto stopped and he will need therapeutic Lovenox per GI recommendation as the only option for anticoagulation considering his liver failure. * s/p vitamin K today and repeat INR * Continue to trend (5) Acute kidney injury: Code(s): N17.9 - Acute kidney failure, unspecified Status: Acute Assessment and Plan: * ?Hepatorenal syndrome * Cr 5.19 from 2.82 * Baseline creatinine appears to be 1.13-1.17, EGFR 60 to greater than 60 * Continue Octreotide, Midodrine and Albumin * Patient may need Dialysis * Nephrology following (6) Pneumonia: Qualifiers: Laterality: unspecified laterality Lung location: unspecified part of lung Pneumonia type: due to unspecified organism Qualified Code(s): J18.9 - Pneumonia, unspecified organism Code(s): J18.9 - Pneumonia, unspecified organism Status: Suspected Assessment and Plan: * Chest x-ray showing small bilateral small pleural effusion right greater than left with opacities at the right lung base which could represent pneumonia * Abdomen/pelvis CT showed a increase mild ground-glass opacity in the lingula which could represent pneumonia * On Cefepime * s/p Vanc as MRSA negative, completed Azithromycin ' * Continue Cefepime (7) Urinary tract infection: Qualifiers: Hematuria presence: without hematuria Urinary tract infection type: acute cystitis Qualified Code(s): N30.00 - Acute cystitis without hematuria Code(s): N39.0 - Urinary tract infection, site not specified Status: Acute Assessment and Plan: * UA shown brown urine color, turbid appearance, 1+ protein, 1+ urine blood, 1+ urine bilirubin, 2+ leukocyte, greater than 100 urine RBC, 21-50 urine WBC, 3- 5 urine casts, rare urine eosinophils. * Urine culture was obtained and pending * Continue cefepime (8) Chronic anemia: Code(s): D64.9 - Anemia, unspecified Status: Chronic Assessment and Plan: Likely secondary to cirrhosis of the liver and chronic kidney disease, chronic * Hemoglobin 7.7, MCV 102.4 * Anemia workup in the past showed normal iron, ferritin, vitamin B12, folate * TSH and T4 elevated * B12/folate elevated, isat 67 * monitor H and H (9) Hypertension: Qualifiers: Hypertension type: primary hypertension Qualified Code(s): I10 - Essential (primary) hypertension Code(s): I10 - Essential (primary) hypertension Status: Chronic Assessment and Plan: * Blood pressure ranging 104/65 to 110/70 * Patient is not currently on any home medications for hypertension * Continue to trend (10) CHEO (obstructive sleep apnea): Code(s): G47.33 - Obstructive sleep apnea (adult) (pediatric) Status: Chronic Assessment and Plan: * Continue CPAP (11) Atrial fibrillation: Qualifiers: Atrial fibrillation type: paroxysmal Qualified Code(s): I48.0 - Paroxysmal atrial fibrillation Code(s): I48.91 - Unspecified atrial fibrillation Status: Chronic Assessment and Plan: * Patient initially in AFib RVR on arrival to the ED * EKG showing AFib with a rate of 87, QTC 524, right bundle branch block, left posterior fascicular block * Xarelto stopped--Will need therapeutic Lovenox when appropriate as this is the only anticoagulation recommended with liver failure. * Holding Metoprolol due to low blood pressure * Continue cardiac monitoring (12) Hypothyroidism: Code(s): E03.9 - Hypothyroidism, unspecified Status: Acute Assessment and Plan: * Continue Synthroid * TSH adn T4 elevated * hold levothyroxine * monitor thyroid studies * US thyroid unremarkable * MRI brain not needed as patient is going hospice Plan Acute urinary retention Urology consulted and rowe was inserted but patient complained of pain and it was removed passing urine and urology following DVT prophylaxis on Sq Lovenox Awaiting hospice placement Subjective Date/time seen: 03/11/25 09:45 Interval history: Holding Lovenox. Patient will undergo paracentesis tomorrow for therapeutic. Pending for hospice Review of Systems Review of Systems: All systems reviewed & are unremarkable except as noted in HPI and below Exam Narrative: General: In no acute distress, well nourished Head: atraumatic, no encephalopathy Eyes: PERRLA, sclera clear ENT: moist mucous membranes, nasal passages clear Neck: supple, no JVD, no adenopathy, trachea midline Cardiac: Normal S1 and S2. No murmur, gallops or friction rubs, peripheral pulses intact. Respiratory: Bilateral crackles in bases, no adventitious lung sounds, currently on room air Gastrointestinal: firm, taunt, non-tender, normoactive bowel sounds. Anasarca present : voiding without difficulty. Extremities: moves all extremities well, 2+ pitting edema BLE Skin: clean, dry, intact. No wounds or lesions. Neuro: Alert and oriented x4, cranial nerves intact, no neuro deficits. Psych: normal mood, normal affect, interactive Const: General: comfortable and no acute distress Other: , male, nontoxic appearance, chronically ill-appearing HENMT: Face/Nose/Sinus: Normal nares present Mouth: Yes moist mucous membranes Eyes: General: appearance normal, both eyes and all related structures Sclera: sclerae normal Pupils: Equal, round and reactive pupils present EOM: EOMs intact bilaterally Resp: Effort & Inspection: normal respiratory effort Other: Bibasilar rales. Cardio: Rate: regular rate Rhythm: regular rhythm Other: S1-S2 present without murmur, rub, ectopy GI: Other: rounded abdomen, slight fluid wave with palpation. No tenderness with palpation. Normoactive bowel sounds in all quadrants. : Other: External catheter in place, T colored output. Neuro: Cranial nerves: Yes Equal, round and reactive pupils present Speech: normal speech Motor exam (neuro): 5/5 motor strength present throughout Sensory Exam: normal sensation Other: A&O x4 Extrem: Other: 3+ pitting edema starting at upper thigh s to ankles bilaterally, R>L. Psych: Mental Status: mental status grossly normal Affect: normal affect Other: Good insight and judgment, pleasant. Objective Data Vital Signs Vital Signs: Vital Signs - 24 hr 03/10/25 15:41 03/10/25 18:16 03/10/25 18:25 Temperature 97.2 F L 97.9 F Pulse Rate 58 L 72 Respiratory Rate 18 16 Blood Pressure 96/62 L 93/57 L Pulse Oximetry 100 100 Oxygen Delivery Room Air 03/10/25 20:00 03/10/25 21:22 03/11/25 06:13 Temperature 97.9 F 97.7 F Pulse Rate 60 72 Respiratory Rate 16 16 Blood Pressure 90/52 L 88/52 L Pulse Oximetry 98 98 Oxygen Delivery Room Air Intake/Output Intake/Output: Intake & Output 03/08/25 03/09/25 03/10/25 03/11/25 23:59 23:59 23:59 23:59 Intake Total 1820 2300 1400 240 Output Total 350 30 25 Balance 1820 1950 1370 215 Meds/Results Medications: Active Medications Generic Name Dose Route Start Last Admin Trade Name Freq PRN Reason Stop Dose Admin Acetaminophen 325 mg 02/27/25 16:47 Acetaminophen 325 Mg Tablet PO Q6H PRN Mild Pain (1-3) or Fever Hydrocodone Bitart/Acetaminophen 1 tab 03/03/25 16:51 03/11/25 02:27 Hydrocodone/Acetaminophen (*Crx) 5-325 Mg Tablet PO 1 tab Q6H PRN Administration Pain Rated 7-10 Benzonatate 100 mg 02/27/25 16:47 02/27/25 21:12 Benzonatate 100 Mg Capsule PO 100 mg TID PRN Administration Cough Enoxaparin Sodium 30 mg 03/05/25 09:00 03/11/25 08:37 Enoxaparin 30 Mg/0.3 Ml Syringe SUB-Q 30 mg DAILY PABLO Administration Folic Acid 1 mg 02/28/25 09:00 03/11/25 08:37 Folic Acid 1 Mg Tablet PO 1 mg QAM PABLO Administration Guaifenesin 600 mg 02/27/25 16:47 02/27/25 21:12 Guaifenesin 12 Hr 600 Mg Tabcr PO 600 mg Q12HR PRN Administration Congestion Albumin Human 100 mls @ 60 mls/hr 03/04/25 12:05 03/11/25 02:27 Albutein IVPB Infused Q12H PABLO Infusion Levothyroxine Sodium 75 mcg 02/28/25 06:30 03/03/25 05:50 Levothyroxine Sodium 75 Mcg Tablet PO 75 mcg DAILY@0630 PABLO Administration Magnesium Oxide 400 mg 02/28/25 09:00 03/11/25 08:37 Magnesium Oxide 400 Mg Tablet PO 400 mg BID PABLO Administration Midodrine 10 mg 03/04/25 17:25 03/11/25 08:37 Midodrine Hcl 10 Mg Tablet PO 10 mg TID PABLO Administration Multivitamins Therapeutic 1 tablet 02/27/25 22:25 03/10/25 20:54 Multivitamins Therapeutic Tab (*Bkc) PO Not Given QHS PABLO Oxybutynin Chloride 5 mg 03/03/25 15:09 03/10/25 02:18 Oxybutynin Chloride 5 Mg Tablet PO 5 mg BID PRN Administration spasm Tamsulosin HCl 0.4 mg 02/28/25 09:00 03/11/25 08:37 Tamsulosin Hcl 0.4 Mg Capsule PO 0.4 mg QAM PABLO Administration Trazodone HCl 25 mg 03/08/25 21:00 03/10/25 20:53 Trazodone Hcl 25 Mg Tablet PO 25 mg HS PABLO Administration Trimethobenzamide HCl 200 mg 03/08/25 21:15 03/09/25 00:02 Trimethobenzamide Hcl 200 Mg/2 Ml Vial IM 200 mg Q6H PRN Administration Nausea And Vomiting Vitamin D 5,000 units 02/28/25 09:00 03/11/25 08:37 Cholecalciferol 5,000 Units Tablet BY MOUTH 5,000 units DAILY PABLO Administration Radiology Results: ITS Impressions Chest X-Ray 02/27/25 13:59 IMPRESSION: 1. No significant interval change in bilateral small pleural effusions, right greater than left with opacities at the right lung base which could represent associated atelectasis and/or pneumonia. Abdomen/Pelvis CT 03/03/25 12:23 Impression: Rowe catheter in satisfactory position within urinary bladder. Moderate to large right pleural effusion and small left pleural effusion with bibasilar atelectasis, right worse than left. Small bilateral nonobstructing renal stones. No hydronephrosis or ureteral stone. Bilateral ureteral stents. Possible mild cirrhotic change of liver. Moderate abdominopelvic ascites. Thyroid Ultrasound 03/04/25 11:46 IMPRESSION: Coarse heterogeneous echogenicity detected diffusely throughout the entirety of the thyroid gland, without increased vascularity to suggest thyroiditis. Benign subcentimeter cysts (TR 1) detected bilaterally for which no further follow-up is needed. In a patient with elevated TSH and elevated free T4, the suggestion of a possible pituitary gland disorder would be more common than inherent thyroid disease. Paracentesis Ultrasound 03/06/25 17:09 IMPRESSION: 1. Successful ultrasound-guided paracentesis yielding 4200 mL of yellowish fluid. Quality VTE Prophylaxis VTE prophylaxis: mechanical ordered Hospitalist MIPS Advance Care Plan I have confirmed that the patient's Advanced Care Plan is present, code status is documented, or surrogate decision maker is listed in patient medical record.: Yes Medication Reconciliation I have utilized all available resources to obtain, update and review the patients current medications (includes all prescriptions, OTC, herbals, cannab is, and nutritional supplements).: Yes
[2025-03-11 14:47] VITALS: BP 92/52; PULSE 76; RESP 13; TEMP 36.4; O2SAT 100
[2025-03-11] MEDS: ONDANSETRON INJ 4 MG/2 ML VIAL IV PUSH ×2 (18:11→22:10)
[2025-03-11] MEDS: BENZONATATE 100 MG CAPSULE PO (20:41)
[2025-03-11 20:46] VITALS: O2SAT 98
[2025-03-11 20:52] VITALS: BP 100/54; PULSE 75; RESP 16; TEMP 36.7; O2SAT 98
[2025-03-11] MEDS: traZODone HCL 25 MG TABLET PO (23:12)
[2025-03-12 06:13] VITALS: BP 96/51; PULSE 66; RESP 16; TEMP 36.4; O2SAT 97
[2025-03-12 06:18] LABS: INR 1.9; Prothrombin Time 22.6 Seconds (11.1-14.7)
[2025-03-12 06:49] LABS: Partial Thromboplastin Time 47.4 Seconds (22.3-36.8)
--- NOTE | 2025-03-12 07:52 | P.PNIM_ITS ---
Progress Note: A&P Assessment and Plan (1) Volume overload: Qualifiers: Hypervolemia type: unspecified Qualified Code(s): E87.70 - Fluid overload, unspecified Code(s): E87.70 - Fluid overload, unspecified Status: Acute Assessment and Plan: * Chest x-ray showing bilateral small pleural effusions right greater than left with opacities in the right lung base which could represent pneumonia * Abdomen/pelvis CT shown anasarca with very small left and small to moderate- sized right pleural effusion, moderate amount of ascites and prominent body wall and less severe mesenteric and retroperitoneal edema, increased mild ground-glass opacity in the lingula which could represent pneumonia, a few tiny nonobstructive renal stones without hydronephrosis or obstruction, infrarenal IVC filter in place * ECHO from 02/14 EF 65-70% * Continue holding Bumex * Patient is awaiting hospice Nephrology following (2) Ascites: Qualifiers: Ascites type: other type Qualified Code(s): R18.8 - Other ascites Code(s): R18.8 - Other ascites Status: Acute Assessment and Plan: Peritoneal fluid culture negative continue Cefepime , Discontinued Vanc f/u cultures (3) Cirrhosis: Qualifiers: Hepatic cirrhosis type: unspecified hepatic cirrhosis Ascites presence: with ascites Qualified Code(s): K74.60 - Unspecified cirrhosis of liver; R18.8 - Other ascites Code(s): K74.60 - Unspecified cirrhosis of liver Status: Acute Assessment and Plan: * Total bili initially 2.8 now up to 3.1 * Alkaline phosphate 278> 221 * Ammonia 42 on admission, now down to less than 9 * UA showed 1+ urine bilirubin * GI following and recommending Midodrine and Octreotide infusion for hepatorenal syndrome * Continue Albumin per GI recommendation * Unable to get a true MELD score due to supratherapeutic INR * Underwent paracentesis and removed 5 L * Pending fluid analysis, f/u cultures (4) Supratherapeutic INR: Code(s): R79.1 - Abnormal coagulation profile Status: Acute Assessment and Plan: * Initial INR 7.6 now down to 2.2 * Underwent thoracentesis and removed 5 L * Xarelto stopped and he will need therapeutic Lovenox per GI recommendation as the only option for anticoagulation considering his liver failure. * s/p vitamin K today and repeat INR * Continue to trend (5) Acute kidney injury: Code(s): N17.9 - Acute kidney failure, unspecified Status: Acute Assessment and Plan: * ?Hepatorenal syndrome * Cr 5.19 from 2.82 * Baseline creatinine appears to be 1.13-1.17, EGFR 60 to greater than 60 * Continue Octreotide, Midodrine and Albumin * Patient may need Dialysis * Nephrology following (6) Pneumonia: Qualifiers: Pneumonia type: due to unspecified organism Laterality: unspecified laterality Lung location: unspecified part of lung Qualified Code(s): J18.9 - Pneumonia, unspecified organism Code(s): J18.9 - Pneumonia, unspecified organism Status: Suspected Assessment and Plan: * Chest x-ray showing small bilateral small pleural effusion right greater than left with opacities at the right lung base which could represent pneumonia * Abdomen/pelvis CT showed a increase mild ground-glass opacity in the lingula which could represent pneumonia * On Cefepime * s/p Vanc as MRSA negative, completed Azithromycin ' * Continue Cefepime (7) Urinary tract infection: Qualifiers: Hematuria presence: without hematuria Urinary tract infection type: acute cystitis Qualified Code(s): N30.00 - Acute cystitis without hematuria Code(s): N39.0 - Urinary tract infection, site not specified Status: Acute Assessment and Plan: * UA shown brown urine color, turbid appearance, 1+ protein, 1+ urine blood, 1+ urine bilirubin, 2+ leukocyte, greater than 100 urine RBC, 21-50 urine WBC, 3- 5 urine casts, rare urine eosinophils. * Urine culture was obtained and pending * Continue cefepime (8) Chronic anemia: Code(s): D64.9 - Anemia, unspecified Status: Chronic Assessment and Plan: Likely secondary to cirrhosis of the liver and chronic kidney disease, chronic * Hemoglobin 7.7, MCV 102.4 * Anemia workup in the past showed normal iron, ferritin, vitamin B12, folate * TSH and T4 elevated * B12/folate elevated, isat 67 * monitor H and H (9) Hypertension: Qualifiers: Hypertension type: primary hypertension Qualified Code(s): I10 - Essential (primary) hypertension Code(s): I10 - Essential (primary) hypertension Status: Chronic Assessment and Plan: * Blood pressure ranging 104/65 to 110/70 * Patient is not currently on any home medications for hypertension * Continue to trend (10) CHEO (obstructive sleep apnea): Code(s): G47.33 - Obstructive sleep apnea (adult) (pediatric) Status: Chronic Assessment and Plan: * Continue CPAP (11) Atrial fibrillation: Qualifiers: Atrial fibrillation type: paroxysmal Qualified Code(s): I48.0 - Paroxysmal atrial fibrillation Code(s): I48.91 - Unspecified atrial fibrillation Status: Chronic Assessment and Plan: * Patient initially in AFib RVR on arrival to the ED * EKG showing AFib with a rate of 87, QTC 524, right bundle branch block, left posterior fascicular block * Xarelto stopped--Will need therapeutic Lovenox when appropriate as this is the only anticoagulation recommended with liver failure. * Holding Metoprolol due to low blood pressure * Continue cardiac monitoring (12) Hypothyroidism: Code(s): E03.9 - Hypothyroidism, unspecified Status: Acute Assessment and Plan: * Continue Synthroid * TSH adn T4 elevated * hold levothyroxine * monitor thyroid studies * US thyroid unremarkable * MRI brain not needed as patient is going hospice Plan Acute urinary retention Urology consulted and rowe was inserted but patient complained of pain and it was removed passing urine and urology following DVT prophylaxis on Sq Lovenox Awaiting hospice placement Subjective Date/time seen: 03/12/25 07:52 Interval history: Patient will undergo paracentesis. Pending admission under hospice Review of Systems Review of Systems: All systems reviewed & are unremarkable except as noted in HPI and below Exam Narrative: General: In no acute distress, well nourished Head: atraumatic, no encephalopathy Eyes: PERRLA, sclera clear ENT: moist mucous membranes, nasal passages clear Neck: supple, no JVD, no adenopathy, trachea midline Cardiac: Normal S1 and S2. No murmur, gallops or friction rubs, peripheral pulses intact. Respiratory: Bilateral crackles in bases, no adventitious lung sounds, currently on room air Gastrointestinal: firm, taunt, non-tender, normoactive bowel sounds. Anasarca present : voiding without difficulty. Extremities: moves all extremities well, 2+ pitting edema BLE Skin: clean, dry, intact. No wounds or lesions. Neuro: Alert and oriented x4, cranial nerves intact, no neuro deficits. Psych: normal mood, normal affect, interactive Const: General: comfortable and no acute distress Other: , male, nontoxic appearance, chronically ill-appearing HENMT: Face/Nose/Sinus: Normal nares present Mouth: Yes moist mucous membranes Eyes: General: appearance normal, both eyes and all related structures Sclera: sclerae normal Pupils: Equal, round and reactive pupils present EOM: EOMs intact bilaterally Resp: Effort & Inspection: normal respiratory effort Other: Bibasilar rales. Cardio: Rate: regular rate Rhythm: regular rhythm Other: S1-S2 present without murmur, rub, ectopy GI: Other: rounded abdomen, slight fluid wave with palpation. No tenderness with palpation. Normoactive bowel sounds in all quadrants. : Other: External catheter in place, T colored output. Neuro: Cranial nerves: Yes Equal, round and reactive pupils present Speech: normal speech Motor exam (neuro): 5/5 motor strength present throughout Sensory Exam: normal sensation Other: A&O x4 Extrem: Other: 3+ pitting edema starting at upper thigh s to ankles bilaterally, R>L. Psych: Mental Status: mental status grossly normal Affect: normal affect Other: Good insight and judgment, pleasant. Objective Data Vital Signs Vital Signs: Vital Signs - 24 hr 03/11/25 08:30 03/11/25 14:47 03/11/25 20:00 Temperature 97.6 F Pulse Rate 76 Respiratory Rate 13 Blood Pressure 92/52 L Pulse Oximetry 100 Oxygen Delivery Room Air Room Air 03/11/25 20:46 03/11/25 20:52 03/12/25 06:13 Temperature 98.0 F 97.6 F Pulse Rate 75 66 Respiratory Rate 16 16 Blood Pressure 100/54 L 96/51 L Pulse Oximetry 98 98 97 Oxygen Delivery Room Air Intake/Output Intake/Output: Intake & Output 03/09/25 03/10/25 03/11/25 03/12/25 23:59 23:59 23:59 23:59 Intake Total 2300 1400 1610 200 Output Total 350 30 75 0 Balance 1950 1370 1535 200 Meds/Results Medications: Active Medications Generic Name Dose Route Start Last Admin Trade Name Freq PRN Reason Stop Dose Admin Acetaminophen 325 mg 02/27/25 16:47 Acetaminophen 325 Mg Tablet PO Q6H PRN Mild Pain (1-3) or Fever Hydrocodone Bitart/Acetaminophen 1 tab 03/03/25 16:51 03/11/25 23:12 Hydrocodone/Acetaminophen (*Crx) 5-325 Mg Tablet PO 1 tab Q6H PRN Administration Pain Rated 7-10 Benzonatate 100 mg 02/27/25 16:47 03/11/25 20:41 Benzonatate 100 Mg Capsule PO 100 mg TID PRN Administration Cough Enoxaparin Sodium 30 mg 03/05/25 09:00 03/11/25 08:37 Enoxaparin 30 Mg/0.3 Ml Syringe SUB-Q 30 mg DAILY PABLO Administration Folic Acid 1 mg 02/28/25 09:00 03/11/25 08:37 Folic Acid 1 Mg Tablet PO 1 mg QAM PABLO Administration Guaifenesin 600 mg 02/27/25 16:47 02/27/25 21:12 Guaifenesin 12 Hr 600 Mg Tabcr PO 600 mg Q12HR PRN Administration Congestion Albumin Human 100 mls @ 60 mls/hr 03/04/25 12:05 03/11/25 23:12 Albutein IVPB 60 mls/hr Q12H PABLO Administration Levothyroxine Sodium 75 mcg 02/28/25 06:30 03/03/25 05:50 Levothyroxine Sodium 75 Mcg Tablet PO 75 mcg DAILY@0630 [facility] Administration Magnesium Oxide 400 mg 02/28/25 09:00 03/11/25 17:18 Magnesium Oxide 400 Mg Tablet PO 400 mg BID PABLO Administration Midodrine 10 mg 03/04/25 17:25 03/11/25 17:18 Midodrine Hcl 10 Mg Tablet PO 10 mg TID PABLO Administration Multivitamins Therapeutic 1 tablet 02/27/25 22:25 03/11/25 22:13 Multivitamins Therapeutic Tab (*Bkc) PO Not Given QHS [facility] Ondansetron HCl 4 mg 03/11/25 18:06 03/11/25 22:10 Ondansetron Inj 4 Mg/2 Ml Vial IV PUSH 4 mg Q4H PRN Administration Nausea And Vomiting Oxybutynin Chloride 5 mg 03/03/25 15:09 03/10/25 02:18 Oxybutynin Chloride 5 Mg Tablet PO 5 mg BID PRN Administration spasm Tamsulosin HCl 0.4 mg 02/28/25 09:00 03/11/25 08:37 Tamsulosin Hcl 0.4 Mg Capsule PO 0.4 mg QAM PABLO Administration Trazodone HCl 25 mg 03/08/25 21:00 03/11/25 23:12 Trazodone Hcl 25 Mg Tablet PO 25 mg HS PABLO Administration Trimethobenzamide HCl 200 mg 03/08/25 21:15 03/09/25 00:02 Trimethobenzamide Hcl 200 Mg/2 Ml Vial IM 200 mg Q6H PRN Administration Nausea And Vomiting Vitamin D 5,000 units 02/28/25 09:00 03/11/25 08:37 Cholecalciferol 5,000 Units Tablet BY MOUTH 5,000 units DAILY PABLO Administration Radiology Results: ITS Impressions Chest X-Ray 02/27/25 13:59 IMPRESSION: 1. No significant interval change in bilateral small pleural effusions, right greater than left with opacities at the right lung base which could represent associated atelectasis and/or pneumonia. Abdomen/Pelvis CT 03/03/25 12:23 Impression: Rowe catheter in satisfactory position within urinary bladder. Moderate to large right pleural effusion and small left pleural effusion with bibasilar atelectasis, right worse than left. Small bilateral nonobstructing renal stones. No hydronephrosis or ureteral stone. Bilateral ureteral stents. Possible mild cirrhotic change of liver. Moderate abdominopelvic ascites. Thyroid Ultrasound 03/04/25 11:46 IMPRESSION: Coarse heterogeneous echogenicity detected diffusely throughout the entirety of the thyroid gland, without increased vascularity to suggest thyroiditis. Benign subcentimeter cysts (TR 1) detected bilaterally for which no further follow-up is needed. In a patient with elevated TSH and elevated free T4, the suggestion of a possible pituitary gland disorder would be more common than inherent thyroid disease. Paracentesis Ultrasound 03/06/25 17:09 IMPRESSION: 1. Successful ultrasound-guided paracentesis yielding 4200 mL of yellowish fluid. Labs Labs: Laboratory Results - last 24 hr 03/12/25 05:06 PT 22.6 H INR 1.9 APTT 47.4 H Hospitalist MIPS Advance Care Plan I have confirmed that the patient's Advanced Care Plan is present, code status is documented, or surrogate decision maker is listed in patient medical record.: Yes Medication Reconciliation I have utilized all available resources to obtain, update and review the patients current medications (includes all prescriptions, OTC, herbals, cannabis, and nutritional supplements).: Yes
[2025-03-12 09:16] VITALS: O2SAT 98
[2025-03-12] MEDS: TAMSULOSIN HCL 0.4 MG CAPSULE PO (09:16)
[2025-03-12] MEDS: CHOLECALCIFEROL 5,000 UNITS TABLET 5000 UNITS BY MOUTH (09:16)
[2025-03-12] MEDS: FOLIC ACID 1 MG TABLET PO (09:16)
[2025-03-12] MEDS: MAGNESIUM OXIDE 400 MG TABLET PO (09:16)
[2025-03-12] MEDS: MIDODRINE HCL 10 MG TABLET PO ×2 (09:16→13:30)
[2025-03-12] MEDS: ONDANSETRON INJ 4 MG/2 ML VIAL IV PUSH ×2 (09:26→09:29)
[2025-03-12] MEDS: ALBUMIN HUMAN 25% 25 GM/100 ML 100 ML IVPB (11:20)
--- NOTE | 2025-03-12 12:20 | P.DS_ITS ---
DS: Admitting Diagnosis Discharge Date 03/12/2025 Admitting Diagnosis Liver cirrhosis DS: Discharge Diagnosis Discharge Diagnosis (1) Volume overload: Qualifiers: Hypervolemia type: unspecified Qualified Code(s): E87.70 - Fluid overload, unspecified Code(s): E87.70 - Fluid overload, unspecified Status: Acute Assessment and Plan: * Chest x-ray showing bilateral small pleural effusions right greater than left with opacities in the right lung base which could represent pneumonia * Abdomen/pelvis CT shown anasarca with very small left and small to moderate- sized right pleural effusion, moderate amount of ascites and prominent body wall and less severe mesenteric and retroperitoneal edema, increased mild ground-glass opacity in the lingula which could represent pneumonia, a few tiny nonobstructive renal stones without hydronephrosis or obstruction, infrarenal IVC filter in place * ECHO from 02/14 EF 65-70% * Continue holding Bumex * Patient is awaiting hospice Nephrology following (2) Ascites: Qualifiers: Ascites type: other type Qualified Code(s): R18.8 - Other ascites Code(s): R18.8 - Other ascites Status: Acute Assessment and Plan: Peritoneal fluid culture negative continue Cefepime , Discontinued Vanc f/u cultures (3) Cirrhosis: Qualifiers: Ascites presence: with ascites Hepatic cirrhosis type: unspecified hepatic cirrhosis Qualified Code(s): K74.60 - Unspecified cirrhosis of liver; R18.8 - Other ascites Code(s): K74.60 - Unspecified cirrhosis of liver Status: Acute Assessment and Plan: * Total bili initially 2.8 now up to 3.1 * Alkaline phosphate 278> 221 * Ammonia 42 on admission, now down to less than 9 * UA showed 1+ urine bilirubin * GI following and recommending Midodrine and Octreotide infusion for hepatorenal syndrome * Continue Albumin per GI recommendation * Unable to get a true MELD score due to supratherapeutic INR * Underwent paracentesis and removed 5 L * Pending fluid analysis, f/u cultures (4) Supratherapeutic INR: Code(s): R79.1 - Abnormal coagulation profile Status: Acute Assessment and Plan: * Initial INR 7.6 now down to 2.2 * Underwent thoracentesis and removed 5 L * Xarelto stopped and he will need therapeutic Lovenox per GI recommendation as the only option for anticoagulation considering his liver failure. * s/p vitamin K today and repeat INR * Continue to trend (5) Acute kidney injury: Code(s): N17.9 - Acute kidney failure, unspecified Status: Acute Assessment and Plan: * ?Hepatorenal syndrome * Cr 5.19 from 2.82 * Baseline creatinine appears to be 1.13-1.17, EGFR 60 to greater than 60 * Continue Octreotide, Midodrine and Albumin * Patient may need Dialysis * Nephrology following (6) Pneumonia: Qualifiers: Laterality: unspecified laterality Lung location: unspecified part of lung Pneumonia type: due to unspecified organism Qualified Code(s): J18.9 - Pneumonia, unspecified organism Code(s): J18.9 - Pneumonia, unspecified organism Status: Suspected Assessment and Plan: * Chest x-ray showing small bilateral small pleural effusion right greater than left with opacities at the right lung base which could represent pneumonia * Abdomen/pelvis CT showed a increase mild ground-glass opacity in the lingula which could represent pneumonia * On Cefepime * s/p Vanc as MRSA negative, completed Azithromycin ' * Continue Cefepime (7) Urinary tract infection: Qualifiers: Hematuria presence: without hematuria Urinary tract infection type: acute cystitis Qualified Code(s): N30.00 - Acute cystitis without hematuria Code(s): N39.0 - Urinary tract infection, site not specified Status: Acute Assessment and Plan: * UA shown brown urine color, turbid appearance, 1+ protein, 1+ urine blood, 1+ urine bilirubin, 2+ leukocyte, greater than 100 urine RBC, 21-50 urine WBC, 3- 5 urine casts, rare urine eosinophils. * Urine culture was obtained and pending * Continue cefepime (8) Chronic anemia: Code(s): D64.9 - Anemia, unspecified Status: Chronic Assessment and Plan: Likely secondary to cirrhosis of the liver and chronic kidney disease, chronic * Hemoglobin 7.7, MCV 102.4 * Anemia workup in the past showed normal iron, ferritin, vitamin B12, folate * TSH and T4 elevated * B12/folate elevated, isat 67 * monitor H and H (9) Hypertension: Qualifiers: Hypertension type: primary hypertension Qualified Code(s): I10 - Essential (primary) hypertension Code(s): I10 - Essential (primary) hypertension Status: Chronic Assessment and Plan: * Blood pressure ranging 104/65 to 110/70 * Patient is not currently on any home medications for hypertension * Continue to trend (10) CHEO (obstructive sleep apnea): Code(s): G47.33 - Obstructive sleep apnea (adult) (pediatric) Status: Chronic Assessment and Plan: * Continue CPAP (11) Atrial fibrillation: Qualifiers: Atrial fibrillation type: paroxysmal Qualified Code(s): I48.0 - Paroxysmal atrial fibrillation Code(s): I48.91 - Unspecified atrial fibrillation Status: Chronic Assessment and Plan: * Patient initially in AFib RVR on arrival to the ED * EKG showing AFib with a rate of 87, QTC 524, right bundle branch block, left posterior fascicular block * Xarelto stopped--Will need therapeutic Lovenox when appropriate as this is the only anticoagulation recommended with liver failure. * Holding Metoprolol due to low blood pressure * Continue cardiac monitoring (12) Hypothyroidism: Code(s): E03.9 - Hypothyroidism, unspecified Status: Acute Assessment and Plan: * Continue Synthroid * TSH adn T4 elevated * hold levothyroxine * monitor thyroid studies * US thyroid unremarkable * MRI brain not needed as patient is going hospice DS: Summary Hospital Course Hospital Course: 79-year-old male with history of alcohol induced liver cirrhosis and hemochromatosis along with macrocytic anemia secondary to alcohol abuse came into the hospital with shortness of breath tiredness and fatigue abdominal distention and ascites. He developed acute renal insufficiency. Patient was also found to have bilateral kidney stone status post ureteral stent placement. He has he developed coagulopathy secondary to liver cirrhosis and infection with pneumonia and UTI. Anemia secondary to renal insufficiency and liver cirrhosis. Denies any bleeding. Patient underwent 3 time paracentesis during the hospitalization. Due to his declining performance status and liver cirrhosis and renal failure, patient has opted for hospice care. Status at Discharge Cognitive/behavioral status at discharge: Guarded Time Spent with Patient Time attestation: Total time spent providing and/or coordinating discharge services: 45 minutes Exam Narrative: General: In no acute distress, well nourished Head: atraumatic, no encephalopathy Eyes: PERRLA, sclera clear ENT: moist mucous membranes, nasal passages clear Neck: supple, no JVD, no adenopathy, trachea midline Cardiac: Normal S1 and S2. No murmur, gallops or friction rubs, peripheral pulses intact. Respiratory: Bilateral crackles in bases, no adventitious lung sounds, currently on room air Gastrointestinal: firm, taunt, non-tender, normoactive bowel sounds. Anasarca present : voiding without difficulty. Extremities: moves all extremities well, 2+ pitting edema BLE Skin: clean, dry, intact. No wounds or lesions. Neuro: Alert and oriented x4, cranial nerves intact, no neuro deficits. Psych: normal mood, normal affect, interactive Const: Other: , male, nontoxic appearance, chronically ill-appearing Resp: Other: Bibasilar rales. Cardio: Other: S1-S2 present without murmur, rub, ectopy GI: Other: rounded abdomen, slight fluid wave with palpation. No tenderness with palpation. Normoactive bowel sounds in all quadrants. : Other: External catheter in place, T colored output. Neuro: Other: A&O x4 Extrem: Other: 3+ pitting edema starting at upper thigh s to ankles bilaterally, R>L. Psych: Other: Good insight and judgment, pleasant. DS: Data Data Completed and Pending Completed studies during hospitalization: Pending at discharge 03/02/25 13:40 Cytology [PTH] Routine Labs on day of discharge: Labs from last 24 hours 03/12/25 05:06 PT 22.6 H INR 1.9 APTT 47.4 H Discharge Plan Discharge Attending physician on discharge: Tariq Monsivais Consulting providers: Rigoberto Ackerman; Jose Armando Barba; Bhavesh Rick Syed M. Discharging Clinician: Tariq Monsivais Anticipated Discharge Date/Time: 03/12/25 12:20 Patient Disposition: Home with Home Health Service Activity: as tolerated Diet: as tolerated Discharge Instructions: Per Care Coordination: [facility] [phone] will resume services. They will call you regarding when they will start coming back out. Please follow up hospice recommendation in regards to further treatment and medication. Patient Instructions: Antibiotic Form, Hospice Care (GEN), Ascites (DC), End Stage Kidney Disease (DC), Hemodialysis (DC), Paracentesis (DC), Chronic Liver Disease (DC) Patient Language: Persian Stand Alone Forms: General Discharge Information Follow-up/Referrals: Bhavesh Rick MD [Physician] - Call for Appointment (Ureteral stent removal in office) Discharge Medications: New benzonatate 100 mg Capsule 100 mg PO TID PRN (Reason: Cough) Qty: 30 0RF midodrine 10 mg Tablet 10 mg PO TID Qty: 30 0RF Continued cholecalciferol (vitamin D3) 125 mcg (5,000 unit) capsule 125 mcg PO DAILY folic acid 1 mg PO DAILY multivitamin Tablet 1 tablet PO DAILY omeprazole 20 mg capsule,delayed release(DR/EC) 20 mg PO QAM magnesium oxide 400 mg (241.3 mg magnesium) Tablet 400 mg PO BID Qty: 60 0RF tamsulosin 0.4 mg Capsule 0.4 mg PO QAM Qty: 30 0RF levothyroxine 50 mcg tablet 75 mcg PO DAILY (DME) BD Luer-Martha Syringe 3 mL 25 x 1 1/2 syringe See Rx Instructions .ROUTE .MEDSUPPLY Qty: 100 0RF Rx Instructions: Use to draw up Testosterone (DME) needle (disp) 18 G [BD Regular Bevel [place]] 18 gauge x 1 needle See Rx Instructions .ROUTE .MEDSUPPLY Qty: 100 0RF Rx Instructions: Use to inject Testosterone Discontinued metoprolol succinate 50 mg tablet extended release 24 hr 50 mg PO DAILY Xarelto 20 mg tablet 20 mg PO DAILY Date of admission: 02/27/25 15:04 Primary Care Provider: Sheree Craven Admitting Provider: Tariq Monsivais Attending physician on admission: Xu Ramsey Condition: Guarded Prognosis
[2025-03-12 14:10] VITALS: BP 96/56; PULSE 78; RESP 12; TEMP 37.3; O2SAT 96
== END 2025-03-12 14:39 | disposition home health service (06) | DRG 432 ==
LOC: ANHED 15:03 → ANHIMU 16:15 → ANH2MED 03-12 12:20 → ANHIMU 03-13 09:25
PROVIDERS: Internal Medicine; Internal Medicine Gastroenterology; Internal Medicine Nephrology; Nurse Practitioner Acute Care; Student in an Organized Health Care Education/Training Program; Admitting Provider General Practice; Emergency Provider Emergency Medicine; PCP Nurse Practitioner; Visit Provider General Practice
DX: K70.31 Alcoholic cirrhosis of liver with ascites (principal); J18.9 Pneumonia, unspecified organism; K76.7 Hepatorenal syndrome; K65.2 Spontaneous bacterial peritonitis; N17.9 Acute kidney failure, unspecified; N39.0 Urinary tract infection, site not specified; I48.20 Chronic atrial fibrillation, unspecified; I12.9 Hypertensive chronic kidney disease with stage 1 through stage 4 chronic kidney disease, or unspecified chronic kidney disease; K70.40 Alcoholic hepatic failure without coma; N18.9 Chronic kidney disease, unspecified; R79.1 Abnormal coagulation profile; D63.1 Anemia in chronic kidney disease; E03.9 Hypothyroidism, unspecified; K21.9 Gastro-esophageal reflux disease without esophagitis; G47.33 Obstructive sleep apnea (adult) (pediatric); F10.10 Alcohol abuse, uncomplicated; F43.10 Post-traumatic stress disorder, unspecified; F32.A Depression, unspecified; Z79.02 Long term (current) use of antithrombotics/antiplatelets; Z86.711 Personal history of pulmonary embolism; Z86.718 Personal history of other venous thrombosis and embolism; Z87.442 Personal history of urinary calculi; Z18.89 Other specified retained foreign body fragments
CPT/HCPCS: 36415; 49083; 71046; 74176; 76536; 80048; 80053; 80202; 81001; 81050; 82040; 82042; 82140; 82550; 82570; 82595; 82607; 82746; 83605; 83615; 83690; 83735; 84100; 84156; 84300; 84439; 84443; 84480; 84481; 84484; 84540; 85025; 85055; 85610; 85652; 85730; 85999; 86140; 87070; 87075; 87086; 87205; 87641; 88108; 88305; 89051; 93005; 96374; 99285; A9270; J0456; J0692; J1650; J1938; J1939; J2354; J2405; J3250; J3370; J3430; P9047